=== PATIENT | male | born 1945 | race Caucasian/White ===

== ENCOUNTER 2019-09-13 10:14 | Outpatient (CLI) | payer MEDICARE, SELFPAY ==
--- NOTE | ~2019-09-13 | US_ITS ---
EXAMINATION: US scrotum doppler EXAM DATE: 09/13/2019 10:48 INDICATION: Right testicular swelling. TECHNIQUE: Multiple grayscale and Doppler images of the testicles and scrotum were obtained bilateral ly. There is no prior study for comparison. FINDINGS: Right testicle measures 3.9 x 3.5 x 3.3 cm and is morphologically normal. Low resistance Doppler kaiser w confirmed. There is a large epididymal head cyst measuring 5.7 x 5.6 x 4.8 cm. There is a moderate- sized right-sided hydrocele. Left testicle measures 3.9 x 3.2 x 2.3 cm and is morphologically normal. Low resistance Doppler flow confirmed. The epididymis is unremarkable. There is a small hydrocele. IMPRESSION: 1. Large right-sided epididymal head cyst. 2. Moderate right-sided hydrocele. Reviewed, dictated and finalized at location A. SALESMAN
== END 2019-09-13 10:15 | disposition home or self-care (01) ==
LOC: ANHIMG 10:22
PROVIDERS: PCP Internal Medicine; Visit Provider Nurse Practitioner
DX: N43.3 Hydrocele, unspecified (principal); N50.3 Cyst of epididymis
CPT/HCPCS: 76870; 93976

== ENCOUNTER 2020-10-03 08:19 | Outpatient (CLI) | payer MEDICARE, SELFPAY ==
--- NOTE | ~2020-10-03 | XR_ITS ---
EXAMINATION: XR chest 2V EXAM DATE: 10/03/2020 08:29 INDICATION: R06.02 - Shortness of breath TECHNIQUE: Frontal and lateral projections of the chest obtained and reviewed. There is no prior chuck dy for comparison. FINDINGS: The lungs are clear. There are no pleural effusions. The cardiomediastinal silhouette is within normal limits. There is no pneumothorax suspected. The bones and soft tissues are unremarkab le. IMPRESSION: Unremarkable chest x-ray exam. Reviewed, dictated and finalized at location B. INS STRINGER
== END 2020-10-03 08:20 | disposition home or self-care (01) ==
LOC: ANHIMG 08:22
PROVIDERS: PCP Internal Medicine; Visit Provider Nurse Practitioner
DX: R06.02 Shortness of breath (principal)
CPT/HCPCS: 71046

== ENCOUNTER 2020-10-24 08:55 | Outpatient (CLI) | payer MEDICARE, SELFPAY ==
--- NOTE | 2020-10-24 09:11 | EST_ITS ---
Patient Info Name: Yonis Gant Age: 75 years : 1945 Gender: Male Ht: 72 in Wt: 248 lbs BSA: 2.43 m2 Technical Quality: Fair Exam Date: 10/24/2020 10:00 AM Exam Location: [facility] Patient Status: Outpatient Admit Date: 10/24/2020 Staff Ordering Physician: Jj Collins APRN Electrical Controls Designer: Job Britton RDCS, RT Attending Provider: LEONEL MURILLO DO Referring Physician: Dennis SULLIVAN; Exam Type: CA stress echo Study Info Indications R06.02 - Shortness of breath Treadmill exercise stress echocardiogram is performed. Summary 1. 1. Negative Joby exercise stress test for ischemic ST changes by ECG criteria. 2. 2. Good functional capacity, achieving 7 METs of workload. 3. 3. Appropriate HR response to exercise. 4. 4. Appropriate HR recovery at 1 minute post exercise. 5. 5. Negative stress echocardiogram for ischemia by wall motion analysis. 6. 6. Patient informed of the above results. Stress Echo Findings Left Ventricle Appropriate increase in LV endocardial thickening with systole. Appropriate augmentation of contractility with systole. No wall motion abnormality. Left Ventricle Normal LV systolic function, no wall motion abnormality. Protocol: Joby Stress ECG Details Stage: REST Duration (min): 1 min : 6 sec Speed (mph): 0.0 Grade (%): 0 HR (bpm): 66 SBP (mmHg): 116 DBP (mmHg): 77 METS: --- Stage: REST Duration (min): 10 min : 57 sec Speed (mph): 0.0 Grade (%): 0 HR (bpm): 74 SBP (mmHg): 116 DBP (mmHg): 77 METS: --- Stage: STAGE 1 Duration (min): 1 min : 0 sec Speed (mph): 1.7 Grade (%): 10 HR (bpm): 97 SBP (mmHg): 116 DBP (mmHg): 77 METS: --- Stage: STAGE 1 Duration (min): 2 min : 0 sec Speed (mph): 1.7 Grade (%): 10 HR (bpm): 111 SBP (mmHg): 116 DBP (mmHg): 77 METS: --- Stage: STAGE 1 Duration (min): 3 min : 0 sec Speed (mph): 1.7 Grade (%): 10 HR (bpm): 114 SBP (mmHg): 161 DBP (mmHg): 76 METS: --- Stage: STAGE 2 Duration (min): 1 min : 0 sec Speed (mph): 2.5 Grade (%): 12 HR (bpm): 122 SBP (mmHg): 161 DBP (mmHg): 76 METS: --- Stage: STAGE 2 Duration (min): 2 min : 0 sec Speed (mph): 2.5 Grade (%): 12 HR (bpm): 132 SBP (mmHg): 161 DBP (mmHg): 76 METS: --- Stage: STAGE 2 Duration (min): 3 min : 0 sec Speed (mph): 2.5 Grade (%): 12 HR (bpm): 133 SBP (mmHg): 161 DBP (mmHg): 76 METS: --- Stage: STAGE 3 Duration (min): 0 min : 1 sec Speed (mph): 0.0 Grade (%): 0 HR (bpm): 133 SBP (mmHg): 161 DBP (mmHg): 76 METS: --- Stage: RECOVERY Duration (min): 0 min : 58 sec Speed (mph): 0.0 Grade (%): 0 HR (bpm): 102 SBP (mmHg): 157 DBP (mmHg): 51 METS: --- Stage: RECOVERY Duration (min): 1 min : 58 sec Speed (mph): 0.0 Grade (%): 0 HR (bpm): 95 SBP (mmHg): 157 DBP (mmHg): 51
== END 2020-10-24 08:56 | disposition home or self-care (01) ==
PROVIDERS: PCP Internal Medicine; Visit Provider Nurse Practitioner
DX: R01.1 Cardiac murmur, unspecified (principal); R06.02 Shortness of breath
CPT/HCPCS: 93351

== ENCOUNTER 2023-11-18 06:34 | Outpatient (CLI) | payer MEDICARE, SELFPAY ==
--- NOTE | ~2023-11-18 | MR_ITS ---
MRI of the left shoulder Technique: Axial proton-density fat-sat images, coronal proton density fat-sat and T2 fat-sat images, and sagittal T1-weighted and T2 fat-sat images were acquired. Clinical History: Pain Findings: There is moderate AC joint degenerative change, superior bony productive change of the clav icle and acromion. Coracoclavicular, coracoacromial, and coracohumeral ligaments are intact. There are complete, full-thickness tears involving the entire supraspinatus and infraspinatus tendons , with fluid-filled gap measuring approximately 4.3 x 4.3 cm in extent. Tendons are retracted approxi mately to the level of the glenohumeral joint, and are hyperintense and somewhat frayed. Subscapulari s tendon is intact, with moderate to severe tendinosis. Tendon of the long head of the biceps is inta ct. No definite labral tear identified. Inferior glenohumeral ligament is thickened and hyperintense. There is small amount of glenohumeral j oint effusion, with fluid passing through the rotator cuff defect into the subacromial/subdeltoid bur sa. There is marked fluid distention of the subcoracoid bursa. No definite muscle atrophy or edema. M inimal chondromalacia the humeral head noted. Impression: Complete, full-thickness tears involving the entire supraspinatus and infraspinatus tendons, as detfatemeh led above. Subscapularis tendinosis. Thickening and increased signal inferior glenohumeral ligament could reflect adhesive capsulitis. Marked asymmetric fluid distention of the subcoracoid bursa is compatible with subcoracoid bursitis. Reviewed, dictated and finalized at location . Impression: Complete, full-thickness tears involving the entire supraspinatus and infraspin atus tendons, as detailed above. Subscapularis tendinosis. Thickening and increased signal inferior glenohumeral ligament could reflect ad hesive capsulitis. Marked asymmetric fluid distention of the subcoracoid bursa is compatible with subcoracoid bursitis.
== END 2023-11-18 06:35 | disposition home or self-care (01) ==
PROVIDERS: PCP Nurse Practitioner; Visit Provider Orthopaedic Surgery
DX: M75.122 Complete rotator cuff tear or rupture of left shoulder, not specified as traumatic (principal)
CPT/HCPCS: 73221

== ENCOUNTER 2024-10-01 12:13 | Inpatient (IN) | payer MEDICARE, SELFPAY ==
--- NOTE | ~2024-10-01 | XR_ITS ---
EXAMINATION: XR chest 2V DATE: 10/01/2024 13:02 INDICATION: Chest pain. TECHNIQUE: Frontal and lateral views of the chest were obtained. COMPARISON: Chest 2 views 10/03/2020 FINDINGS: There are airspace opacities in left lower lung zone. No pleural effusion or pneumothorax. The heart size is normal. IMPRESSION: 1. Airspace opacities in left lower lung zone, consistent with atelectasis versus pneumonia. Reviewed, dictated and finalized at location A. TIONSHIP CONSULTANT IMPRESSION: 1. Airspace opacities in left lower lung zone, consistent with atelectasis vers us pneumonia.
--- NOTE | 2024-10-01 12:13 | ECG_ITS ---
Test Date: 2024-10-01 12:17:21 Measurements Intervals Bryan Rate: 106 P: 62 NE: 180 QRS: -5 QRSD: 106 T: 80 QT: 351 QTc: 466 Interpretive Statements SINUS TACHYCARDIA WITH FREQUENT VENTRICULAR PREMATURE COMPLEXES IN A BIGEMINAL PATTERN INCOMPLETE RIGHT BUNDLE BRANCH BLOCK BASELINE ARTIFACT- I, II, III, AVR, AVL, V1 ABNORMAL ECG No previous ECG available for comparison Electronically Signed On 10-01-2024 16:51:55 MEDICAL DELIVERY DRIVER by Art Herman D.O.
[2024-10-01 12:29] VITALS: BP 135/91; PULSE 108; RESP 19; TEMP 36.6; O2SAT 100
[2024-10-01 12:38] LABS: Basophils Absolute Auto 0.1 K/mm3 (0.0-0.1); Basophils Percent Auto 1.3 % (0.2-1.2); Eosinophils Absolute Auto 0.3 K/mm3 (0-0.3); Hematocrit 47.2 % (42.0-52.0); Immature Granulocyte Absolute 0.02 K/mm3 (0.00-0.031); Immature Granulocyte Percent A 0.3 % (0-0.5); Lymphocytes Absolute Auto 1.84 K/mm3 (0.9-3.2); Lymphocytes Percent Auto 26.4 % (18.3-44.2); Mean Corpuscular HGB Conc 33.9 g/dl (32-36); Mean Corpuscular Hemoglobin 30.3 pg (26-34); Mean Corpuscular Volume 89.4 fl (80-100); Mean Platelet Volume 10.5 fl (7.4-10.4); Monocytes Absolute Auto 0.5 K/mm3 (0.1-0.6); Monocytes Percent Auto 7.4 % (2.6-8.5); Neutrophils Absolute Auto 4.2 K/mm3 (1.3-6.7); Neutrophils Percent Auto 60.6 % (45.5-73.1); Platelet Count Result 212 k/mm3 (150-375); Red Blood Count 5.28 M/mm3 (4.6-6.20)
[2024-10-01 12:43] LABS: Alanine Aminotransferase 22 U/L (6-50); Albumin Level 4.8 g/dL (3.5-5.1); Alkaline Phosphatase 109 U/L (38-126); Anion Gap 13 mmol/L (4-12); Aspartate Amino Transferase 25 U/L (17-59); Blood Urea Nitrogen 20 mg/dL (9-20); Carbon Dioxide 25 mmol/L (22-30); Chloride 100 mmol/L (98-107); Estimated CRCL calculation 53 ml/min; Estimated Glomerular Filt Rate 53; Glucose 102 mg/dL (65-110); Lipase 203 U/L (23-300); Potassium 4.3 mmol/L (3.4-5.0); Sodium 138 mmol/L (137-145)
[2024-10-01 12:50] LABS: INR 0.9; Prothrombin Time 12.7 Seconds (11.1-14.7)
[2024-10-01 12:52] LABS: Partial Thromboplastin Time 26.5 Seconds (22.3-36.8)
[2024-10-01 12:54] LABS: Troponin I < 0.012 ng/mL (0.000-0.034)
--- NOTE | 2024-10-01 14:38 | ED.GENADULT ---
HPI - General Adult General Chief complaint: Chest Pain Stated complaint: CP Time Seen by Provider: 10/01/24 14:27 History of Present Illness HPI narrative: Patient 79-year-old gentleman who presents emergency department chief complaint of chest pain. Patient reports that over the last 2 weeks he has been having episodes of chest pain particularly whenever he is doing physical activity patient states he was outside shoveling snow and started having discomfort in his chest and got short of breath patient did report that he got a little sweaty when this happened reports the symptoms did resolve patient states that since then he has had episodes where he is working in his garage either grinding or moving tractors around or he starts having the pain once he stops doing the activity the discomfort goes away. The patient reports that he a stress test about 2 years ago reports currently he is pain-free Related Data Home Medications ?Medication ?Instructions ?Recorded ?Confirmed ?Last Taken ?Type aspirin 81 mg tablet,delayed 81 mg PO DAILY 09/05/19 07/14/24 Unknown History release (Aspir-) Allergies Allergy/AdvReac Type Severity Reaction Status Date / Time No Known Allergies Allergy Verified 07/14/24 07:23 Review of Systems Review of Systems: A 10 system review of systems was completed on the patient and is negative except for what is stated in the HPI. Nursing and ancillary documentation was reviewed. [facility] Past Medical History Medical History BMI 35.0-35.9,adult History of testicular lump High cholesterol Hypertension Benign prostatic hyperplasia (BPH) with urinary urgency Surgical History Surgical History History of testicular mass excision Family History Family History Father Alcoholic cirrhosis Mother Brain cancer Sibling addiction Acute myocardial infarction Brain cancer Exposure to Agent [place] Social History Social History Smoking status: Never smoker Second hand tobacco smoke exposure: No Alcohol intake: current Alcohol use details: 4 beer every month Substance use: never Substance use type: does not use Do You Feel Safe in your Home?: Yes Lack of Transportation: No Lack of Food: Never True Current Housing: I Have Housing Concerned About Future Housing: No Difficulty Paying Gas/Electric Bills: No Difficulty Paying for Meds: No Currently Unemployed: No Education: High School Diploma/GED Difficulty w/ Childcare or Family Care: No Living arrangements: with family Occupation/Education: retired Additional occupation/education comments: [employer] Gender identity (if verbalized by the patient): Male Exam Narrative: GENERAL: Well-appearing, well-nourished, and in no acute distress. HEAD: Normocephalic, atraumatic. EYES: PERRLA and EOMI. ENT: Nares clear, no rhinorrhea or epistaxis. Mucous membranes moist. NECK: Supple. CHEST: Clear to auscultation. No respiratory distress. HEART: Regular rate and rhythm. No murmur heard. Normal peripheral pulses. ABDOMEN: Soft, nontender, nondistended, normal active bowel sounds. EXTREMITIES: Normal range of motion. No edema. SKIN: Warm, dry, no rash. NEURO: No focal deficits. Alert and oriented x3. PSYCH: Normal mood and affect. Course Vital Signs Vital signs: Vital Signs Temperature 36.6 C 10/01/24 12:29 Pulse Rate 108 H 10/01/24 12:29 Respiratory Rate 10/01/24 12:29 Blood Pressure 135/91 H 10/01/24 12:29 Pulse Oximetry 100 10/01/24 12:29 Oxygen Delivery Room Air 10/01/24 12:29 Temperature 36.6 C 10/01/24 12:29 Pulse Rate 108 H 10/01/24 12:29 Respiratory Rate 10/01/24 12:29 Blood Pressure 135/91 H 10/01/24 12:29 Pulse Oximetry 100 10/01/24 12:29 Oxygen Delivery Room Air 10/01/24 14:32 Medical Decision Making [facility] Narrative Medical decision making narrative: Differential diagnosis includes exertional angina, unstable angina, ACS EKG showed no acute ischemic changes Initial troponin was negative Vital Signs Vital Signs: Vital Signs Temperature 36.6 C 10/01/24 12:29 Pulse Rate 108 H 10/01/24 12:29 Respiratory Rate 10/01/24 12:29 Blood Pressure 135/91 H 10/01/24 12:29 Pulse Oximetry 100 10/01/24 12:29 Oxygen Delivery Room Air 10/01/24 12:29 Temperature 36.6 C 10/01/24 12:29 Pulse Rate 108 H 10/01/24 12:29 Respiratory Rate 19 10/01/24 12:29 Blood Pressure 135/91 H 10/01/24 12:29 Pulse Oximetry 100 10/01/24 12:29 Oxygen Delivery Room Air 10/01/24 14:32 Lab Data 10/01/24 12:26 10/01/24 12:26 Labs: Lab Results 10/01/24 Range/Units 12:26 WBC 7.0 (4.5-10.0) K/mm3 RBC 5.28 (4.6-6.20) M/mm3 Hgb 16.0 (14.0-18.0) g/dL Hct 47.2 (42.0-52.0) % MCV 89.4 (80-100) fl MCH 30.3 (26-34) pg MCHC 33.9 (32-36) g/dl RDW 13.0 (11.5-14.5) % Plt Count 212 (150-375) k/mm3 MPV 10.5 H (7.4-10.4) fl Immature Gran % (Auto) 0.3 (0-0.5) % Neut % (Auto) 60.6 (45.5-73.1) % Lymph % (Auto) 26.4 (18.3-44.2) % Estill % (Auto) 7.4 (2.6-8.5) % Eos % (Auto) 4.0 (0-4.4) % Baso % (Auto) 1.3 H (0.2-1.2) % Lymph # (Auto) 1.84 (0.9-3.2) K/mm3 Estill # (Auto) 0.5 (0.1-0.6) K/mm3 Eos # (Auto) 0.3 (0-0.3) K/mm3 Baso # (Auto) 0.1 (0.0-0.1) K/mm3 Abs Immat Gran (auto) 0.02 (0.00-0.031) K/mm3 Absolute Neuts (auto) 4.2 (1.3-6.7) K/mm3 Absolute Nucleated RBC 0.000 (0.0-0.012) K/mm3 Nucleated RBC % 0.0 (0.0-0.2) % PT 12.7 (11.1-14.7) Seconds INR 0.9 APTT 26.5 (22.3-36.8) Seconds Sodium 138 (137-145) mmol/L Potassium 4.3 (3.4-5.0) mmol/L Chloride 100 (98-107) mmol/L Carbon Dioxide 25 (22-30) mmol/L Anion Gap 13 H (4-12) mmol/L BUN 20 (9-20) mg/dL Creatinine 1.31 H (0.7-1.3) mg/dL Estim Creat Clear Calc 53 ml/min Estimated GFR 53 L (59 - ) Glucose 102 (65-110) mg/dL Calcium 10.0 (8.4-10.2) mg/dL Total Bilirubin 1.0 (0.2-1.3) mg/dL AST 25 (17-59) U/L ALT 22 (6-50) U/L Alkaline Phosphatase 109 (38-126) U/L Troponin I < 0.012 (0.000-0.034) ng/mL Total Protein 8.0 (6.3-8.2) g/dL Albumin 4.8 (3.5-5.1) g/dL Lipase 203 (23-300) U/L Discharge Plan Discharge Clinical Impression: Chest pain Patient Disposition: Still a Patient Condition: Stable Patient Language: Tajik Prescriptions: No Action aspirin [Aspir-81] 81 mg tablet,delayed release (DR/EC) 81 mg PO DAILY levothyroxine 112 mcg tablet 112 mcg PO DAILY Qty: 90 3RF lisinopril-hydrochlorothiazide 20-12.5 mg tablet 1 tablet PO DAILY Qty: 90 3RF atorvastatin 20 mg tablet 20 mg PO DAILY Qty: 90 3RF Follow-up/Referrals: Jj Collins APRN [Primary Care Provider] - Time of Disposition: 14:40 Quality HEART score for chest pain patients History: moderately suspicious ECG: normal Age: > or = to 65 years Risk factors: 1 or 2 risk factors Troponin: < or = to 1x normal limit Heart score: 4
[2024-10-01 14:55] LABS: NT Pro B Type Natriuretic Pept < 20 pg/mL (19.9-100)
--- NOTE | 2024-10-01 15:02 | ECG_ITS ---
Test Date: 2024-10-01 15:22:52 Measurements Intervals Dwight Rate: 83 P: 60 SD: 173 QRS: 10 QRSD: 106 T: 69 QT: 353 QTc: 415 Interpretive Statements SINUS RHYTHM INCOMPLETE RIGHT BUNDLE BRANCH BLOCK BASELINE ARTIFACT- I, III, AVR, AVL, AVF BORDERLINE ECG Compared to ECG 10/01/2024 12:17:21 HEART RATE HAS DECREASED VENTRICULAR BIGEMINY NO LONGER PRESENT Electronically Signed On 10-01-2024 16:35:24 CRUCIBLE FURNACE TENDER by Art Herman D.O.
[2024-10-01 15:13] VITALS: BP 141/87; PULSE 90; RESP 16; O2SAT 96
--- NOTE | 2024-10-01 15:15 | P.HP_ITS ---
H&P: HPI History of Present Illness Date/Time: 10/01/24 15:15 Chief Complaint: Chest pain. Narrative: This is a very pleasant 79-year-old male with history of hypertension, hyperlipidemia, chronic kidney disease stage 3, benign prostatic hyperplasia, hypothyroidism, and kidney stones who presented to the emergency department via private vehicle for evaluation of chest pain. He gives a 3 history of exertional chest pain, describing a nonradiating pressure-like discomfort in the substernal region with activity. For example, the chest discomfort occurred while he was shoveling and working out in his garage. The pain resolves within a short period of time after he stops to rest. He denies associated lightheadedness, dizziness, sweats, nausea, and vomiting. He had a stress test done several years ago which was unremarkable and he has no known history of coronary disease. At the time my evaluation he is without discomfort and has no complaints. He denies recent cold and flu symptoms, pleuritic pain, orthopnea, lower extremity edema, calf pain, bloating, belching, and abdominal pain. In the ED: Vital signs were stable on arrival. CMP and CBC were pretty unremarkable on arrival and his creatinine is stable compared to previous labs. Initial troponin was less than 0.012. EKG showed sinus tachycardia with a rate of 106 and frequent PVCs in a bigeminal pattern and incomplete right bundle- branch block. He was given aspirin 324 mg and is being admitted in this setting for close monitoring and Cardiology consultation. Review of Systems Review of Systems: 12 systems were reviewed and are negativ e except for as per HPI. PENDING SALE TO [facility] Past Medical History Medical History (Updated 10/02/24 @ 14:29 by Summer Mccabe PA-C) Benign prostatic hyperplasia Hyperlipidemia Chronic kidney disease, stage 3 Hypertension Surgical History Surgical History History of testicular mass excision Family History Family History Father Alcoholic cirrhosis Mother Brain cancer Sibling addiction Acute myocardial infarction Brain cancer Exposure to Agent [place] Social History Social History (Updated 10/02/24 @ 14:29 by Summer Mccabe PA-C) Social History: Surrogate medical decision maker: Noemy Gant, spouse. Code status: Full code. Smoking status: Never smoker Second hand tobacco smoke exposure: No Alcohol intake: current Alcohol use details: 4 beer every month Substance use: never Substance use type: does not use Do You Feel Safe in your Home?: Yes Lack of Transportation: No Lack of Food: Never True Current Housing: I Have Housing Concerned About Future Housing: No Difficulty Paying Gas/Electric Bills: No Difficulty Paying for Meds: No Currently Unemployed: No Education: High School Diploma/GED Difficulty w/ Childcare or Family Care: No Living arrangements: with family Occupation/Education: retired Additional occupation/education comments: [employer] Spiritual care concerns: No Meds Home Medications and Allergies Home Medications ?Medication ?Instructions ?Recorded ?Confirmed ?Type aspirin 81 mg tablet,delayed 81 mg PO DAILY 09/05/19 10/01/24 History release (Aspir-) atorvastatin 20 mg tablet 20 mg PO DAILY #90 tabs 04/20/24 10/01/24 Rx levothyroxine 112 mcg tablet 112 mcg PO DAILY #90 tabs 07/14/24 10/01/24 Rx lisinopril 20 1 tablet PO DAILY #90 tabs 07/14/24 10/01/24 Rx mg-hydrochlorothiazide 12.5 mg tablet Allergies Allergy/AdvReac Type Severity Reaction Status Date / Time No Known Allergies Allergy Verified 07/14/24 07:23 Vital Signs Vital Signs - 24 hr 10/01/24 12:29 10/01/24 14:32 10/01/24 15:13 Temperature 97.9 F Pulse Rate 108 H 90 Respiratory Rate 19 16 Blood Pressure 135/91 H 141/87 H Pulse Oximetry 100 96 Oxygen Delivery Room Air Room Air Exam Narrative: General: Well-developed male sitting up in bed in no acute distress. Weight: 118.3 kg. BMI: 35.4. HEENT: PERRL, EOMI. Sclera anicteric. Oral mucosa moist. Oropharynx clear. Neck: Supple. Respiratory: Lungs are clear to auscultation bilaterally. Cardiovascular: Regular rate and rhythm with S1-S2. Systolic murmurs at the right upper sternal border and apex. Chest: No tenderness to palpation over the chest wall. Gastrointestinal: Abdomen is soft, obese, nontender, and nondistended with positive bowel sounds. Skin: Warm and dry. No rash or lesions on limited exam. Extremities: No cyanosis, clubbing, or edema. Radial and pedal pulses intact. No palpable knots or cords. Negative Mauro sign bilaterally. Neurological: Alert. Cranial nerves 2-12 are grossly intact. No gross focal deficits to casual conversation. Psychiatric: Pleasant and cooperative with normal mood and affect. Judgment and insight intact. H&P: Results Labs Labs: Short CBC 10/01/24 Range/Units 12:26 WBC 7.0 (4.5-10.0) K/mm3 Hgb 16.0 (14.0-18.0) g/dL Hct 47.2 (42.0-52.0) % Plt Count 212 (150-375) k/mm3 BMP 10/01/24 12:26 Sodium 138 Potassium 4.3 Chloride 100 Carbon Dioxide 25 BUN 20 Creatinine 1.31 H Glucose 102 Calcium 10.0 Cardiac Enzymes 10/01/24 Range/Units 12:26 Troponin I < 0.012 (0.000-0.034) ng/mL Liver Function 10/01/24 Range/Units 12:26 Total Bilirubin 1.0 (0.2-1.3) mg/dL AST 25 (17-59) U/L ALT 22 (6-50) U/L Alkaline Phosphatase 109 (38-126) U/L Albumin 4.8 (3.5-5.1) g/dL Imaging Chest X-Ray 10/01/24 13:04 IMPRESSION: 1. Airspace opacities in left lower lung zone, consistent with atelectasis versus pneumonia. Assessment and Plan Assessment and plan (1) Exertional chest pain: Code(s): R07.9 - Chest pain, unspecified Status: Acute (2) Hypertension: Qualifiers: Hypertension type: primary hypertension Qualified Code(s): I10 - Essential (primary) hypertension Code(s): I10 - Essential (primary) hypertension Status: Acute (3) Hyperlipidemia: Qualifiers: Hyperlipidemia type: other hyperlipidemia Qualified Code(s): E78.49 - Other hyperlipidemia Code(s): E78.5 - Hyperlipidemia, unspecified Status: Acute (4) Hypothyroidism: Qualifiers: Hypothyroidism type: acquired Qualified Code(s): E03.9 - Hypothyroidism, unspecified Code(s): E03.9 - Hypothyroidism, unspecified Status: Acute (5) Chronic kidney disease, stage 3: Code(s): N18.30 - Chronic kidney disease, stage 3 unspecified Status: Acute Plan The patient presented to the emergency department for evaluation of exertional chest pain over the last couple of weeks as detailed in HPI. Labs, imaging, EKG, and all reports were personally reviewed. EKG did not show any acute or concerning ST segment changes and his initial troponin was negative. He will be admitted to the IMU for close monitoring and he will be NPO after midnight for probable cardiac catheterization due to exertional angina. Cardiology was consulted by the ED and their input and recommendations are appreciated. Blood pressures were reviewed and they have been stable. Kidney function is stable on review of previous labs. Continue levothyroxine and check TSH. The rest of his home medications will be reviewed and resumed as appropriate. Findings and treatment plan were discussed with the patient. Questions were solicited and answered to satisfaction. The patient's medical management will be taken over by the hospitalist team in a.m. Quality VTE Prophylaxis VTE prophylaxis: pharmacologic ordered The patient has been admitted under observation status. Hospitalist MIPS Advance Care Plan I have confirmed that the patient's Advanced Care Plan is present, code status is documented, or surrogate decision maker is listed in patient medical record.: Yes Medication Reconciliation I have utilized all available resources to obtain, update and review the patients current medications (includes all prescriptions, OTC, herbals, cannabis, and nutritional supplements).: Yes
[2024-10-01 15:42] LABS: Troponin I 0.029 ng/mL (0.000-0.034)
[2024-10-01 15:53] LABS: Influenza A QL RT-PCR Negative (Negative); Influenza B QL RT-PCR Negative (Negative); RSV RNA, RT-PCR Negative (Negative); SARS-CoV-2 RNA PCR Negative (Negative)
[2024-10-01 17:38] VITALS: BP 151/79; PULSE 87; RESP 18; TEMP 36.5; O2SAT 96; BMI 35.4
[2024-10-01 18:00] VITALS: PULSE 85
--- NOTE | 2024-10-01 18:08 | PC.NURSE ---
This patient, Yonis Gant Jr., was admitted to IMU Room 214-01. Patient/family oriented to hospital policies and general routines including ID bracelet, bed and alarms, visiting hours, pain management, procedures, bathroom and other care routines, personal items, smoking policy, room service/diet, and visiting hours. Information on how to activate the Rapid Response Team has been discussed. Patient/Family are encouraged to report perceived risks to care and to ask questions if they do not understand what they are told or what they should do. Admissoion assessment completed at bedside with pt and documented in the chart. Pt voiced no complaints or concerns at this time. Pt left sitting on side of bed eating dinner with call light in reach and informed to call for help. pt thankful for help and verbalized understanding. Jerardo Rollins RN
[2024-10-01 19:19] LABS: Troponin I 0.073 ng/mL (0.000-0.034)
[2024-10-01 20:00] VITALS: BP 145/72; PULSE 76; PULSE 79; RESP 18; TEMP 36.4; O2SAT 96
[2024-10-01 22:00] VITALS: PULSE 79
[2024-10-02] VITALS (27 sets, daily range): BP systolic 117–151; BP diastolic 67–92; PULSE 61–78; RESP 13–22; TEMP 36.3–36.6; O2SAT 93–99
[2024-10-02 04:53] LABS: Hematocrit 45.1 % (42.0-52.0); Hemoglobin 15.1 g/dL (14.0-18.0); Mean Corpuscular HGB Conc 33.5 g/dl (32-36); Mean Corpuscular Volume 89.7 fl (80-100); Mean Platelet Volume 10.4 fl (7.4-10.4); Platelet Count Result 185 k/mm3 (150-375); Red Blood Count 5.03 M/mm3 (4.6-6.20); Red Cell Distribution Width 13.1 % (11.5-14.5); White Blood Count 6.2 K/mm3 (4.5-10.0)
[2024-10-02 05:05] LABS: Cholesterol 151 mg/dL (0-200); HDL Direct 52 mg/dL; Triglycerides 85 mg/dL (<150)
[2024-10-02 05:07] LABS: Anion Gap 7 mmol/L (4-12); Blood Urea Nitrogen 19 mg/dL (9-20); Calcium 9.5 mg/dL (8.4-10.2); Carbon Dioxide 29 mmol/L (22-30); Chloride 102 mmol/L (98-107); Estimated CRCL calculation 55 ml/min; Estimated Glomerular Filt Rate 54; Glucose 94 mg/dL (65-110); Magnesium 1.9 mg/dL (1.6-2.3); Potassium 4.2 mmol/L (3.4-5.0); Sodium 138 mmol/L (137-145)
[2024-10-02 05:16] LABS: LDL Cholesterol Direct 68 mg/dL
[2024-10-02 06:43] LABS: Free T4 Free Thyroxine Reflex 0.96 ng/dL (0.78-2.19)
[2024-10-02] MEDS: ASPIRIN 81 MG ENTERIC TABLET PO (08:37)
[2024-10-02] MEDS: ATORVASTATIN 20 MG TABLET PO (08:37)
[2024-10-02] MEDS: LEVOTHYROXINE SODIUM 112 MCG TABLET PO (08:38)
[2024-10-02] MEDS: lisinopriL 20 MG TABLET PO (08:38)
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
--- NOTE | 2024-10-02 09:29 | P.PNIM_ITS ---
Progress Note: A&P Assessment and Plan (1) Exertional chest pain: Code(s): R07.9 - Chest pain, unspecified Status: Acute (2) Hypertension: Qualifiers: Hypertension type: primary hypertension Qualified Code(s): I10 - Essential (primary) hypertension Code(s): I10 - Essential (primary) hypertension Status: Acute (3) Hyperlipidemia: Qualifiers: Hyperlipidemia type: other hyperlipidemia Qualified Code(s): E78.49 - Other hyperlipidemia Code(s): E78.5 - Hyperlipidemia, unspecified Status: Acute (4) Hypothyroidism: Qualifiers: Hypothyroidism type: acquired Qualified Code(s): E03.9 - Hypothyroidism, unspecified Code(s): E03.9 - Hypothyroidism, unspecified Status: Acute (5) Chronic kidney disease, stage 3: Code(s): N18.30 - Chronic kidney disease, stage 3 unspecified Status: Acute Plan This is a very pleasant 79-year-old male with history of hypertension, hyperlipidemia, chronic kidney disease stage 3, benign prostatic hyperplasia, hypothyroidism, and kidney stones who presented to the emergency department via private vehicle for evaluation of chest pain. He gives a 3 history of exertional chest pain, describing a nonradiating pressure-like discomfort in the substernal region with activity. For example, the chest discomfort occurred while he was shoveling and working out in his garage. The pain resolves within a short period of time after he stops to rest. He denies associated lightheadedness, dizziness, sweats, nausea, and vomiting. He had a stress test done several years ago which was unremarkable and he has no known history of coronary disease. At the time my evaluation he is without discomfort and has no complaints. He denies recent cold and flu symptoms, pleuritic pain, orthopnea, lower extremity edema, calf pain, bloating, belching, and abdominal pain. In the ED: Vital signs were stable on arrival. CMP and CBC were pretty unremarkable on arrival and his creatinine is stable compared to previous labs. Chest x-ray with airspace opacities in the left lung zone consistent with atelectasis versus pneumonia. Influenza RSV COVID swab was negative. Initial troponin was less than 0.012. EKG showed sinus tachycardia with a rate of 106 and frequent PVCs in a bigeminal pattern and incomplete right bundle-branch block. EKG with no acute ST-T changes. He was given aspirin 324 mg and is being admitted in this setting for close monitoring and Cardiology consultation. Exertional chest pain initial troponin negative however subsequent increase to 0.073. Suggestive of non ST elevation GA. received aspirin 324 mg x 1 followed by aspirin 81 mg daily. Already on atorvastatin 20 mg daily. LDL is 68. Increase atorvastatin to 80 mg daily. Heparin drip has been started this a.m. planned cardiac catheterization later today Systolic murmur in aortic area get echo Hypertension Hyperlipidemia Hypothyroidism Chronic kidney disease stage 3 Code status full code DVT prophylaxis heparin GTT Subjective Date/time seen: 10/02/24 09:29 Interval history: No new complaints no chest pain. No shortness of breath. Plan for catheterization later today per Review of Systems Review of Systems: All systems reviewed & are unremarkable except as noted in HPI and below Exam Narrative: General: Well-developed male sitting up in bed in no acute distress. HEENT: PERRL, EOMI. Sclera anicteric. Oral mucosa moist. Oropharynx clear. Neck: Supple. Respiratory: Lungs are clear to auscultation bilaterally. Cardiovascular: Regular rate and rhythm with S1-S2. Aortic area with systolic murmur Chest: No tenderness to palpation over the chest wall. Gastrointestinal: Abdomen is soft, obese, nontender, and nondistended with positive bowel sounds. Skin: Warm and dry. No rash or lesions on limited exam. Extremities: No cyanosis, clubbing, or edema. Radial and pedal pulses intact. No palpable knots or cords. Neurological: Alert. Cranial nerves 2-12 are grossly intact. No gross focal deficits to casual conversation. Psychiatric: Pleasant and cooperative with normal mood and affect. Judgment and insight intact. Objective Data Vital Signs Vital Signs: Vital Signs - 24 hr 10/01/24 12:29 10/01/24 14:32 10/01/24 15:13 Temperature 97.9 F Pulse Rate 108 H 90 Respiratory Rate 19 16 Blood Pressure 135/91 H 141/87 H Pulse Oximetry 100 96 Oxygen Delivery Room Air Room Air 10/01/24 17:38 10/01/24 18:00 10/01/24 18:15 Temperature 97.7 F Pulse Rate 87 85 Respiratory Rate 18 Blood Pressure 151/79 H Pulse Oximetry 96 Oxygen Delivery Room Air 10/01/24 20:00 10/01/24 20:00 10/01/24 20:00 Temperature 97.5 F L Pulse Rate 76 79 Respiratory Rate 18 Blood Pressure 145/72 H Pulse Oximetry 96 Oxygen Delivery Room Air 10/01/24 22:00 10/02/24 00:00 10/02/24 00:00 Temperature 97.4 F L Pulse Rate 79 78 Respiratory Rate 20 Blood Pressure 139/84 Pulse Oximetry 97 Oxygen Delivery Room Air 10/02/24 00:00 10/02/24 03:41 10/02/24 04:00 Temperature Pulse Rate 75 71 Respiratory Rate Blood Pressure Pulse Oximetry Oxygen Delivery Room Air 10/02/24 04:00 10/02/24 07:36 Temperature 97.6 F 97.6 F Pulse Rate 68 68 Respiratory Rate 18 18 Blood Pressure 151/92 H 128/69 Pulse Oximetry 95 99 Oxygen Delivery Intake/Output Intake/Output: Intake & Output 09/29/24 09/30/24 10/01/24 10/02/24 23:59 23:59 23:59 23:59 Intake Total 240 350 Output Total 100 950 Balance 140 -600 Meds/Results Medications: Active Medications Generic Name Dose Route Start Last Admin Trade Name Freq PRN Reason Stop Dose Admin Acetaminophen 650 mg 10/01/24 15:12 Acetaminophen 325 Mg Tablet PO Q4H PRN Mild Pain (1-3) or Fever Aspirin 81 mg 10/02/24 08:00 10/02/24 08:36 Aspirin 81 Mg Chewable Tablet PO Not Given DAILY@0800 [facility] Aspirin 81 mg 10/02/24 09:00 10/02/24 08:37 Aspirin 81 Mg Enteric Tablet PO 81 mg DAILY [facility] Administration Atorvastatin Calcium 20 mg 10/02/24 09:00 10/02/24 08:37 Atorvastatin 20 Mg Tablet PO 20 mg DAILY [facility] Administration Enoxaparin Sodium 40 mg 10/02/24 09:00 Enoxaparin 40 Mg/0.4 Ml Syringe SUB-Q DAILY [facility] Heparin Sodium (Porcine) 4,000 units 10/02/24 09:27 Heparin Sodium 5,000 Units/Ml Vial IV PUSH 10/02/24 09:28 ONCE ONE Heparin Sodium (Porcine) 0 units 10/02/24 09:27 Heparin Sodium 5,000 Units/Ml Vial IV PUSH PRN PRN aPTT less than 55 seconds Heparin Sodium (Porcine) 0 units 10/02/24 09:27 Heparin Sodium 5,000 Units/Ml Vial IV PUSH PRN PRN aPTT 55 - 70 seconds Hydrochlorothiazide 12.5 mg 10/02/24 09:00 Hydrochlorothiazide 12.5 Mg Capsule PO DAILY [facility] Heparin Sodium/Dextrose 25,000 units in 250 mls @ 13.908 mls/hr 10/02/24 09:30 Heparin Sodium/D5w 100 Units/Ml IV CONT .[id number] [facility] Protocol 12 UNITS/KG/HR Levothyroxine Sodium 112 mcg 10/02/24 09:00 10/02/24 08:38 Levothyroxine Sodium 112 Mcg Tablet PO 112 mcg DAILY@0630 [facility] Administration Lisinopril 20 mg 10/02/24 09:00 10/02/24 08:38 Lisinopril 20 Mg Tablet PO 20 mg DAILY [facility] Administration Morphine Sulfate 2 mg 10/01/24 20:37 Morphine Sulfate (*Crx) 2 Mg/Ml Inj IV PUSH Q4H PRN Pain Rated 7-10 Perflutren Lipid Microsphere 0 ml 10/01/24 20:37 Perflutren Lipid Microspheres 1.5 Ml Vial Diluted To 10 Ml Total Volume IV PUSH 10/04/24 20:37 ONCE PRN adequate visualization Protocol Radiology Results: ITS Impressions Chest X-Ray 10/01/24 13:04 IMPRESSION: 1. Airspace opacities in left lower lung zone, consistent with atelectasis versus pneumonia. Labs Labs: Laboratory Results - last 24 hr 10/01/24 10/01/24 10/01/24 12:26 15:11 15:12 WBC 7.0 RBC 5.28 Hgb 16.0 Hct 47.2 MCV 89.4 MCH 30.3 MCHC 33.9 RDW 13.0 Plt Count 212 MPV 10.5 H Immature Gran % (Auto) 0.3 Neut % (Auto) 60.6 Lymph % (Auto) 26.4 [place] % (Auto) 7.4 Eos % (Auto) 4.0 Baso % (Auto) 1.3 H Lymph # (Auto) 1.84 [place] # (Auto) 0.5 Eos # (Auto) 0.3 Baso # (Auto) 0.1 Abs Immat Gran (auto) 0.02 Absolute Neuts (auto) 4.2 Absolute Nucleated RBC 0.000 Nucleated RBC % 0.0 PT 12.7 INR 0.9 APTT 26.5 Sodium 138 Potassium 4.3 Chloride 100 Carbon Dioxide 25 Anion Gap 13 H BUN 20 Creatinine 1.31 H Estim Creat Clear Calc 53 Estimated GFR 53 L Glucose 102 Calcium 10.0 Magnesium Total Bilirubin 1.0 AST 25 ALT 22 Alkaline Phosphatase 109 Troponin I < 0.012 0.029 D NT-Pro-B Natriuret Pep < 20 Total Protein 8.0 Albumin 4.8 Triglycerides Cholesterol LDL Cholesterol Direct HDL Direct Lipase 203 TSH (Reflex) Free T4 Influenza A (RT-PCR) Negative Influenza B (RT-PCR) Negative RSV (RT-PCR) Negative SARS-CoV-2 RNA (RT-PCR) Negative 10/01/24 10/02/24 18:44 04:32 WBC 6.2 RBC 5.03 Hgb 15.1 Hct 45.1 MCV 89.7 MCH 30.0 MCHC 33.5 RDW 13.1 Plt Count 185 MPV 10.4 Immature Gran % (Auto) Neut % (Auto) Lymph % (Auto) [place] % (Auto) Eos % (Auto) Baso % (Auto) Lymph # (Auto) [place] # (Auto) Eos # (Auto) Baso # (Auto) Abs Immat Gran (auto) Absolute Neuts (auto) Absolute Nucleated RBC Nucleated RBC % PT INR APTT Sodium 138 Potassium 4.2 Chloride 102 Carbon Dioxide 29 Anion Gap 7 BUN 19 Creatinine 1.28 Estim Creat Clear Calc 55 Estimated GFR 54 L Glucose 94 Calcium 9.5 Magnesium 1.9 Total Bilirubin AST ALT Alkaline Phosphatase Troponin I 0.073 H* D NT-Pro-B Natriuret Pep Total Protein Albumin Triglycerides 85 Cholesterol 151 LDL Cholesterol Direct 68 HDL Direct 52 Lipase TSH (Reflex) 4.020 Free T4 0.96 Influenza A (RT-PCR) Influenza B (RT-PCR) RSV (RT-PCR) SARS-CoV-2 RNA (RT-PCR)
[2024-10-02 10:09] LABS: Basophils Absolute Auto 0.1 K/mm3 (0.0-0.1); Basophils Percent Auto 0.9 % (0.2-1.2); Eosinophils Absolute Auto 0.2 K/mm3 (0-0.3); Eosinophils Percent Auto 4.2 % (0-4.4); Hematocrit 45.4 % (42.0-52.0); Hemoglobin 15.2 g/dL (14.0-18.0); Immature Granulocyte Absolute 0.02 K/mm3 (0.00-0.031); Immature Granulocyte Percent A 0.4 % (0-0.5); Lymphocytes Absolute Auto 1.25 K/mm3 (0.9-3.2); Lymphocytes Percent Auto 23.7 % (18.3-44.2); Mean Corpuscular HGB Conc 33.5 g/dl (32-36); Mean Corpuscular Hemoglobin 30.2 pg (26-34); Mean Corpuscular Volume 90.1 fl (80-100); Mean Platelet Volume 10.6 fl (7.4-10.4); Monocytes Absolute Auto 0.4 K/mm3 (0.1-0.6); Neutrophils Absolute Auto 3.3 K/mm3 (1.3-6.7); Neutrophils Percent Auto 62.8 % (45.5-73.1); Platelet Count Result 171 k/mm3 (150-375); Red Blood Count 5.04 M/mm3 (4.6-6.20); Red Cell Distribution Width 13.1 % (11.5-14.5); White Blood Count 5.3 K/mm3 (4.5-10.0)
[2024-10-02 10:15] LABS: Troponin I 0.062 ng/mL (0.000-0.034)
[2024-10-02] MEDS: HEPARIN SODIUM 5,000 UNITS/ML VIAL 4000 UNITS IV PUSH (10:29)
[2024-10-02] MEDS: HEPARIN SOD/D5W 100 UNITS/ML 25,000 UNITS/250 ML BAG 10 UNITS IV CONT (10:30)
[2024-10-02 10:39] LABS: Prothrombin Time 13.4 Seconds (11.1-14.7)
[2024-10-02 10:40] LABS: Partial Thromboplastin Time 28.5 Seconds (22.3-36.8)
[2024-10-02 11:26] LABS: Total Triiodothyronine (T3) 0.87 NG/ML (0.97-1.69)
--- NOTE | 2024-10-02 12:06 | PC.NURSE ---
Pt to [facility] for cardiac catheterization. Heparin drip paused by maintenance shop laborer RN.
--- NOTE | 2024-10-02 13:31 | WPDMODSED ---
Moderate Sedation Note-Pt Data Patient Data Allergies Allergy/AdvReac Type Severity Reaction Status Date / Time No Known Allergies Allergy Verified 07/14/24 07:23 Home Medications ?Medication ?Instructions ?Recorded ?Confirmed ?Type aspirin 81 mg tablet,delayed 81 mg PO DAILY 09/05/19 10/01/24 History release (Aspir-) atorvastatin 20 mg tablet 20 mg PO DAILY #90 tabs 04/20/24 10/01/24 Rx levothyroxine 112 mcg tablet 112 mcg PO DAILY #90 tabs 07/14/24 10/01/24 Rx lisinopril 20 1 tablet PO DAILY #90 tabs 07/14/24 10/01/24 Rx mg-hydrochlorothiazide 12.5 mg tablet Current Medications: Active Medications Acetaminophen (Acetaminophen 325 Mg Tablet) 650 mg PO Q4H PRN PRN Reason: Mild Pain (1-3) or Fever Aspirin (Aspirin 81 Mg Chewable Tablet) 81 mg PO DAILY@0800 [facility] Last Admin: 10/02/24 08:36 Dose: Not Given Aspirin (Aspirin 81 Mg Enteric Tablet) 81 mg PO DAILY [facility] Last Admin: 10/02/24 08:37 Dose: 81 mg Atorvastatin Calcium (Atorvastatin 40 Mg Tablet) 80 mg PO DAILY [facility] Enoxaparin Sodium (Enoxaparin 40 Mg/0.4 Ml Syringe) 40 mg SUB-Q DAILY [facility] Last Admin: 10/02/24 10:37 Dose: Not Given Heparin Sodium (Porcine) (Heparin Sodium 5,000 Units/Ml Vial) 4,000 units IV PUSH PRN PRN PRN Reason: aPTT less than 55 seconds Heparin Sodium (Porcine) (Heparin Sodium 5,000 Units/Ml Vial) 3,500 units IV PUSH PRN PRN PRN Reason: aPTT 55 - 70 seconds Hydrochlorothiazide (Hydrochlorothiazide 12.5 Mg Capsule) 12.5 mg PO DAILY [facility] Last Admin: 10/02/24 10:37 Dose: Not Given Heparin Sodium/Dextrose (Heparin Sodium/D5w 100 Units/Ml) 25,000 units in 250 mls @ 0 mls/hr IV CONT .Q0M [facility]; Protocol Last Titration: 10/02/24 12:07 Dose: 0 units/hr, 0 mls/hr Sodium Chloride (Normal Saline Iv) 1,000 mls @ 125 mls/hr IV CONT .Q8H ONE Stop: 10/02/24 21:25 Levothyroxine Sodium (Levothyroxine Sodium 112 Mcg Tablet) 112 mcg PO DAILY@0630 [facility] Last Admin: 10/02/24 08:38 Dose: 112 mcg Lisinopril (Lisinopril 20 Mg Tablet) 20 mg PO DAILY [facility] Last Admin: 10/02/24 08:38 Dose: 20 mg Morphine Sulfate (Morphine Sulfate (*Crx) 2 Mg/Ml Inj) 2 mg IV PUSH Q4H PRN PRN Reason: Pain Rated 7-10 Perflutren Lipid Microsphere (Perflutren Lipid Microspheres 1.5 Ml Vial Diluted To 10 Ml Total Volume) 0 ml IV PUSH ONCE PRN; Protocol PRN Reason: adequate visualization Stop: 10/04/24 20:37 Sedation/Anesthesia: No previous sedation/anesthesia problems (including family history). [facility], LAT[facility] Past Medical History Medical History Chronic kidney disease, stage 3 BMI 35.0-35.9,adult History of testicular lump High cholesterol Hypertension Benign prostatic hyperplasia (BPH) with urinary urgency Surgical History Surgical History History of testicular mass excision Family History Family History Father Alcoholic cirrhosis Mother Brain cancer Sibling addiction Acute myocardial infarction Brain cancer Exposure to Agent [place] Social History Social History Smoking status: Never smoker Second hand tobacco smoke exposure: No Alcohol intake: current Alcohol use details: 4 beer every month Substance use: never Substance use type: does not use Do You Feel Safe in your Home?: Yes Lack of Transportation: No Lack of Food: Never True Current Housing: I Have Housing Concerned About Future Housing: No Difficulty Paying Gas/Electric Bills: No Difficulty Paying for Meds: No Currently Unemployed: No Education: High School Diploma/GED Difficulty w/ Childcare or Family Care: No Living arrangements: with family Occupation/Education: retired Additional occupation/education comments: [employer] Gender identity (if verbalized by the patient): Male Spiritual care concerns: No Mod Sed Physical Exam Physical Exam Pre Procedural Exam: Normal: Lungs, Heart Rate and Heart Rhythm Hours since solid foods: 12 Hours since liquid intake: 12 Mallampati Classification: class II Internal Medicine - PN: Obj Da Vital Signs Vital Signs: Vital Signs - 24 hr 10/01/24 14:32 10/01/24 15:13 10/01/24 17:38 Temperature 36.5 C Pulse Rate 90 87 Respiratory Rate 16 18 Blood Pressure 141/87 H 151/79 H Pulse Oximetry 96 96 Oxygen Delivery Room Air 10/01/24 18:00 10/01/24 18:15 10/01/24 20:00 Temperature 36.4 C L Pulse Rate 85 76 Respiratory Rate 18 Blood Pressure 145/72 H Pulse Oximetry 96 Oxygen Delivery Room Air 10/01/24 20:00 10/01/24 20:00 10/01/24 22:00 Temperature Pulse Rate 79 79 Respiratory Rate Blood Pressure Pulse Oximetry Oxygen Delivery Room Air 10/02/24 00:00 10/02/24 00:00 10/02/24 00:00 Temperature 36.3 C L Pulse Rate 78 75 Respiratory Rate 20 Blood Pressure 139/84 Pulse Oximetry 97 Oxygen Delivery Room Air 10/02/24 03:41 10/02/24 04:00 10/02/24 04:00 Temperature 36.4 C Pulse Rate 71 68 Respiratory Rate 18 Blood Pressure 151/92 H Pulse Oximetry 95 Oxygen Delivery Room Air 10/02/24 07:36 10/02/24 08:00 10/02/24 11:55 Temperature 36.4 C 36.6 C Pulse Rate 68 68 65 Respiratory Rate 18 19 22 H Blood Pressure 128/69 117/77 Pulse Oximetry 99 95 96 Oxygen Delivery Room Air Intake/Output Intake/Output: Intake & Output 09/29/24 09/30/24 10/01/24 10/02/24 23:59 23:59 23:59 23:59 Intake Total 240 366.2 Output Total 100 1150 Balance 140 -783.8 Meds/Results Medications: Active Medications Generic Name Dose Route Start Last Admin Trade Name Freq PRN Reason Stop Dose Admin Acetaminophen 650 mg 10/01/24 15:12 Acetaminophen 325 Mg Tablet PO Q4H PRN Mild Pain (1-3) or Fever Aspirin 81 mg 10/02/24 08:00 10/02/24 08:36 Aspirin 81 Mg Chewable Tablet PO Not Given DAILY@0800 [facility] Aspirin 81 mg 10/02/24 09:00 10/02/24 08:37 Aspirin 81 Mg Enteric Tablet PO 81 mg DAILY [facility] Administration Atorvastatin Calcium 80 mg 10/03/24 09:00 Atorvastatin 40 Mg Tablet PO DAILY [facility] Enoxaparin Sodium 40 mg 10/02/24 09:00 10/02/24 10:37 Enoxaparin 40 Mg/0.4 Ml Syringe SUB-Q Not Given DAILY [facility] Heparin Sodium (Porcine) 4,000 units 10/02/24 09:27 Heparin Sodium 5,000 Units/Ml Vial IV PUSH PRN PRN aPTT less than 55 seconds Heparin Sodium (Porcine) 3,500 units 10/02/24 09:27 Heparin Sodium 5,000 Units/Ml Vial IV PUSH PRN PRN aPTT 55 - 70 seconds Hydrochlorothiazide 12.5 mg 10/02/24 09:00 10/02/24 10:37 Hydrochlorothiazide 12.5 Mg Capsule PO Not Given DAILY [facility] Heparin Sodium/Dextrose 25,000 units in 250 mls @ 0 mls/hr 10/02/24 10:00 10/02/24 12:07 Heparin Sodium/D5w 100 Units/Ml IV CONT 0 units/hr .Q0M [facility] 0 mls/hr Titration Protocol Sodium Chloride 1,000 mls @ 125 mls/hr 10/02/24 13:26 Normal Saline Iv IV CONT 10/02/24 21:25 .Q8H ONE Levothyroxine Sodium 112 mcg 10/02/24 09:00 10/02/24 08:38 Levothyroxine Sodium 112 Mcg Tablet PO 112 mcg DAILY@0630 [facility] Administration Lisinopril 20 mg 10/02/24 09:00 10/02/24 08:38 Lisinopril 20 Mg Tablet PO 20 mg DAILY [facility] Administration Morphine Sulfate 2 mg 10/01/24 20:37 Morphine Sulfate (*Crx) 2 Mg/Ml Inj IV PUSH Q4H PRN Pain Rated 7-10 Perflutren Lipid Microsphere 0 ml 10/01/24 20:37 Perflutren Lipid Microspheres 1.5 Ml Vial Diluted To 10 Ml Total Volume IV PUSH 10/04/24 20:37 ONCE PRN adequate visualization Protocol Radiology Results: ITS Impressions Chest X-Ray 10/01/24 13:04 IMPRESSION: 1. Airspace opacities in left lower lung zone, consistent with atelectasis versus pneumonia. Labs 10/02/24 09:58 10/02/24 04:32 Labs: Laboratory Results - last 24 hr 10/01/24 10/01/24 10/01/24 12:26 15:11 15:12 WBC RBC Hgb Hct MCV MCH MCHC RDW Plt Count MPV Immature Gran % (Auto) Neut % (Auto) Lymph % (Auto) [place] % (Auto) Eos % (Auto) Baso % (Auto) Lymph # (Auto) [place] # (Auto) Eos # (Auto) Baso # (Auto) Abs Immat Gran (auto) Absolute Neuts (auto) Absolute Nucleated RBC Nucleated RBC % PT INR APTT Sodium Potassium Chloride Carbon Dioxide Anion Gap BUN Creatinine Estim Creat Clear Calc Estimated GFR Glucose Calcium Magnesium Troponin I 0.029 D NT-Pro-B Natriuret Pep < 20 Triglycerides Cholesterol LDL Cholesterol Direct HDL Direct TSH (Reflex) Free T4 Total T3 Influenza A (RT-PCR) Negative Influenza B (RT-PCR) Negative RSV (RT-PCR) Negative SARS-CoV-2 RNA (RT-PCR) Negative 10/01/24 10/02/24 10/02/24 18:44 04:26 04:32 WBC 6.2 RBC 5.03 Hgb 15.1 Hct 45.1 MCV 89.7 MCH 30.0 MCHC 33.5 RDW 13.1 Plt Count 185 MPV 10.4 Immature Gran % (Auto) Neut % (Auto) Lymph % (Auto) [place] % (Auto) Eos % (Auto) Baso % (Auto) Lymph # (Auto) [place] # (Auto) Eos # (Auto) Baso # (Auto) Abs Immat Gran (auto) Absolute Neuts (auto) Absolute Nucleated RBC Nucleated RBC % PT INR APTT Sodium 138 Potassium 4.2 Chloride 102 Carbon Dioxide 29 Anion Gap 7 BUN 19 Creatinine 1.28 Estim Creat Clear Calc 55 Estimated GFR 54 L Glucose 94 Calcium 9.5 Magnesium 1.9 Troponin I 0.073 H* D 0.062 H* NT-Pro-B Natriuret Pep Triglycerides 85 Cholesterol 151 LDL Cholesterol Direct 68 HDL Direct 52 TSH (Reflex) 4.020 Free T4 0.96 Total T3 0.87 L Influenza A (RT-PCR) Influenza B (RT-PCR) RSV (RT-PCR) SARS-CoV-2 RNA (RT-PCR) 10/02/24 09:58 WBC 5.3 RBC 5.04 Hgb 15.2 Hct 45.4 MCV 90.1 MCH 30.2 MCHC 33.5 RDW 13.1 Plt Count 171 MPV 10.6 H Immature Gran % (Auto) 0.4 Neut % (Auto) 62.8 Lymph % (Auto) 23.7 [place] % (Auto) 8.0 Eos % (Auto) 4.2 Baso % (Auto) 0.9 Lymph # (Auto) 1.25 [place] # (Auto) 0.4 Eos # (Auto) 0.2 Baso # (Auto) 0.1 Abs Immat Gran (auto) 0.02 Absolute Neuts (auto) 3.3 Absolute Nucleated RBC 0.000 Nucleated RBC % 0.0 PT 13.4 INR 1.0 APTT 28.5 Sodium Potassium Chloride Carbon Dioxide Anion Gap BUN Creatinine Estim Creat Clear Calc Estimated GFR Glucose Calcium Magnesium Troponin I NT-Pro-B Natriuret Pep Triglycerides Cholesterol LDL Cholesterol Direct HDL Direct TSH (Reflex) Free T4 Total T3 Influenza A (RT-PCR) Influenza B (RT-PCR) RSV (RT-PCR) SARS-CoV-2 RNA (RT-PCR) ASA Classification/Sedation ASA Classification/Sedation ASA Class: III Emergent: No Risks: Risks, benefits and alternatives explained and patient/family accepted plan for sedation. Patient re-evaluated immediately prior to sedation.
--- NOTE | 2024-10-02 13:32 | P.PCNCC_ITS ---
Cardiac Cath Procedure Note Date of procedure:: 10/02/24 Performing physician:: Britney Lucia MD Indication:: NSTEMI Brief clinical history:: 79 y/o male patient presented with chest pain and noted to have elevated troponin. He was given asa, started on heparin drip and scheduled for cardiac catheterization for further evaluation. Procedure Procedure performed:: Radial access Selective right and left coronary angiogram Sedation/Medication given:: Versed 1 mg Fentanyl 100 mcg Case start time: 12:24 p.m. Case end time 1:00 p.m. Access site:: Right radial artery Estimated blood loss:: 20cc Procedure note:: Patient is brought to the cardiac lab support service tech for angiogram and possible intervention. The risks, benefits, alternatives, and possible complications of this procedure was discussed, understood and accepted by the patient. Moderate sedation: I administered moderate sedation throughout the procedure. An independent trained provider pushed medications at my discretion and monitored the patient's level of consciousness and physiological status throughout under my supervision. [id number] time was provided for the entire procedure. Please refer to electronic medical record for total sedation doses provided. Intra service time: 36 minutes Hemodynamic data: Opening aortic pressure was 102/80/92 mm Hg. LVEDP was not performed. Catheters used for selective coronary angiograms: Six Slovenian JL 3.5 Six Slovenian JR4 Findings:: 1. The left main coronary artery arises from the left coronary cusp and divides into the left anterior descending and left circumflex. There is 60-70% ostial left main stenosis with dampening of blood pressure with engagement of left main . 100 mcg of intracoronary nitroglycerin was administered and repeat angiography was performed and showed 60% stenosis of ostial left main. 2. The left anterior descending artery arises from the left main and gives off 2 big diagnosis and septal perforators before wrapping around the LV apex. There is 90% stenosis in the mid LAD before the takeoff of a large diagonal. This is the culprit lesion. 3. The left circumflex artery arises from the left main and is a large sized anatomically nondominant artery. It is free of angiographic disease. 4. The right coronary artery arises from the right coronary cusp and gives off PDA and PLV branch. It is anatomically dominant. It has 70% stenosis in the distal RCA prior to bifurcation of PDA and PL. Conclusion:: 1. NSTEMI 2. Obstructive triple-vessel disease with 70% stenosis of distal RCA prior to large bifurcation, 60-70% stenosis of ostial left main, 90% stenosis of mid LAD. Assessment and Plan Assessment and plan (1) NSTEMI (non-ST elevated myocardial infarction): Code(s): I21.4 - Non-ST elevation (NSTEMI) myocardial infarction Status: Acute Assessment and Plan: -Continue aspirin 81 mg daily -Resume heparin after removing TR band -Atorvastatin 80 mg daily -Give 1 L normal saline at 100 mL/hour -Patient remains chest pain free. No acute ST T wave changes on EKG and electrically stable. Given significant ostial left main, mid LAD and distal RCA disease patient would be a good candidate for CABG surgery. Transfer to [facility] for CT surgery consult for CABG evaluation -Hold off any blood blood pressure lowering medications including beta-jerome (2) Hyperlipidemia: Qualifiers: Hyperlipidemia type: other hyperlipidemia Qualified Code(s): E78.49 - Other hyperlipidemia Code(s): E78.5 - Hyperlipidemia, unspecified Status: Acute Assessment and Plan: Atorvastatin 80 mg daily (3) Hypertension: Qualifiers: Hypertension type: primary hypertension Qualified Code(s): I10 - Essential (primary) hypertension Code(s): I10 - Essential (primary) hypertension Status: Acute Assessment and Plan: Hold off any blood pressure lowering medications as SBP in the 90s to 100s range
[2024-10-02] MEDS: SODIUM CHLORIDE 0.9% IV 1,000 ML 125 ML IV CONT (13:53)
--- NOTE | 2024-10-02 16:44 | PC.NURSE ---
Pt returned from quality lab technician via wheelchair. Heparin gtt infusing. at bedside
[2024-10-02 23:01] LABS: Partial Thromboplastin Time 91.7 Seconds (22.3-36.8)
[2024-10-03] VITALS (9 sets, daily range): BP systolic 117–149; BP diastolic 66–75; PULSE 61–80; RESP 14–20; TEMP 36.3–36.8; O2SAT 96–100
[2024-10-03 04:41] LABS: Basophils Absolute Auto 0.1 K/mm3 (0.0-0.1); Basophils Percent Auto 1.1 % (0.2-1.2); Eosinophils Absolute Auto 0.2 K/mm3 (0-0.3); Eosinophils Percent Auto 3.5 % (0-4.4); Hematocrit 44.1 % (42.0-52.0); Hemoglobin 14.9 g/dL (14.0-18.0); Immature Granulocyte Absolute 0.02 K/mm3 (0.00-0.031); Immature Granulocyte Percent A 0.3 % (0-0.5); Lymphocytes Absolute Auto 1.56 K/mm3 (0.9-3.2); Lymphocytes Percent Auto 24.5 % (18.3-44.2); Mean Corpuscular HGB Conc 33.8 g/dl (32-36); Mean Corpuscular Hemoglobin 30.2 pg (26-34); Mean Corpuscular Volume 89.5 fl (80-100); Mean Platelet Volume 10.1 fl (7.4-10.4); Monocytes Absolute Auto 0.5 K/mm3 (0.1-0.6); Monocytes Percent Auto 7.4 % (2.6-8.5); Neutrophils Percent Auto 63.2 % (45.5-73.1); Platelet Count Result 168 k/mm3 (150-375); Red Blood Count 4.93 M/mm3 (4.6-6.20); White Blood Count 6.4 K/mm3 (4.5-10.0)
[2024-10-03 04:53] LABS: Alanine Aminotransferase 19 U/L (6-50); Albumin Level 4.2 g/dL (3.5-5.1); Alkaline Phosphatase 84 U/L (38-126); Anion Gap 10 mmol/L (4-12); Aspartate Amino Transferase 23 U/L (17-59); Blood Urea Nitrogen 17 mg/dL (9-20); Calcium 9.1 mg/dL (8.4-10.2); Carbon Dioxide 25 mmol/L (22-30); Chloride 104 mmol/L (98-107); Estimated CRCL calculation 65 ml/min; Estimated Glomerular Filt Rate > 60; Glucose 96 mg/dL (65-110); Magnesium 1.9 mg/dL (1.6-2.3); Potassium 4.1 mmol/L (3.4-5.0); Sodium 139 mmol/L (137-145)
[2024-10-03 05:03] LABS: Partial Thromboplastin Time 66.5 Seconds (22.3-36.8)
[2024-10-03] MEDS: LEVOTHYROXINE SODIUM 112 MCG TABLET PO (05:33)
[2024-10-03] MEDS: HEPARIN SODIUM 5,000 UNITS/ML VIAL 3500 UNITS IV PUSH (05:37)
[2024-10-03] MEDS: HEPARIN SOD/D5W 100 UNITS/ML 25,000 UNITS/250 ML BAG 12 UNITS IV CONT (09:38)
[2024-10-03] MEDS: hydroCHLOROthiazide 12.5 MG CAPSULE PO (09:39)
[2024-10-03] MEDS: ATORVASTATIN 40 MG TABLET 80 MG PO (09:39)
[2024-10-03] MEDS: ASPIRIN 81 MG ENTERIC TABLET PO (09:40)
[2024-10-03] MEDS: lisinopriL 20 MG TABLET PO (09:40)
--- NOTE | 2024-10-03 12:18 | PM.PNCARD ---
Progress Note: A&P Assessment and Plan (1) NSTEMI (non-ST elevated myocardial infarction): Code(s): I21.4 - Non-ST elevation (NSTEMI) myocardial infarction Status: Acute Assessment and Plan: -Continue aspirin 81 mg daily -Continue heparin gtt -Atorvastatin 80 mg daily -Patient remains chest pain free. No acute ST T wave changes on EKG and electrically stable. Given significant ostial left main, mid LAD and distal RCA disease patient would be a good candidate for CABG surgery. Transfer to [facility] for CT surgery consult for CABG evaluation. Awaiting transfer -Hold off any blood blood pressure lowering medications including beta-jerome (2) Hyperlipidemia: Qualifiers: Hyperlipidemia type: other hyperlipidemia Qualified Code(s): E78.49 - Other hyperlipidemia Code(s): E78.5 - Hyperlipidemia, unspecified Status: Acute Assessment and Plan: Atorvastatin 80 mg daily (3) Hypertension: Qualifiers: Hypertension type: primary hypertension Qualified Code(s): I10 - Essential (primary) hypertension Code(s): I10 - Essential (primary) hypertension Status: Acute Assessment and Plan: Hold off any blood pressure lowering medications as SBP in the 90s to 100s range Subjective Date/time seen: 10/03/24 12:18 Interval history: Cardiology follow up visit States he feels better today. He denies any chest pain. Review of Systems Review of Systems: All systems reviewed & are unremarkable except as noted in HPI and below Exam Const: General: comfortable, no acute distress, alert and awake Orientation/consciousness: patient oriented x3 HENMT: Head: normal to inspection Eyes: General: appearance normal, both eyes and all related structures Pupils: Equal, round and reactive pupils present Neck: Neck: normal visual inspection, supple and no JVD Carotids: normal carotid upstroke Resp: Effort & Inspection: normal respiratory effort Auscultation: clear to auscultation bilaterally Cardio: Rate: regular rate Rhythm: regular rhythm Heart sounds: S1 normal heart sound present, S2 normal heart sound present and Murmur heart sound present systolic II/, at the apex, at the left sternal border and at the right sternal border GI: Auscultation: normal bowel sounds Skin: General skin exam: normal color Neuro: General: patient oriented x3 Cranial nerves: Yes Equal, round and reactive pupils present Extrem: General: normal to inspection Other: no edema, good perfusion R radial arterial access site free from bleeding, hematoma. Radial pulse intact. Psych: Appearance: grossly normal Mental Status: mental status grossly normal Objective Data Vital Signs Vital Signs: Vital Signs - 24 hr 10/02/24 13:20 10/02/24 13:20 10/02/24 13:30 Temperature Pulse Rate 62 61 Pulse Rate [Right Radial] 63 Respiratory Rate 17 14 Blood Pressure 134/79 134/79 Pulse Oximetry 94 94 Oxygen Delivery Room Air Room Air 10/02/24 13:30 10/02/24 13:45 10/02/24 13:45 Temperature Pulse Rate 65 Pulse Rate [Right Radial] 62 67 Respiratory Rate 14 Blood Pressure 129/76 Pulse Oximetry 93 Oxygen Delivery Room Air 10/02/24 14:00 10/02/24 14:00 10/02/24 14:15 Temperature Pulse Rate 65 62 Pulse Rate [Right Radial] 65 Respiratory Rate 14 14 Blood Pressure 132/82 125/82 Pulse Oximetry 93 93 Oxygen Delivery Room Air Room Air 10/02/24 14:15 10/02/24 14:30 10/02/24 14:30 Temperature Pulse Rate 64 Pulse Rate [Right Radial] 65 62 Respiratory Rate 15 Blood Pressure 137/79 Pulse Oximetry 93 Oxygen Delivery Room Air 10/02/24 14:45 10/02/24 14:45 10/02/24 15:00 Temperature Pulse Rate 68 68 Pulse Rate [Right Radial] 68 Respiratory Rate 16 16 Blood Pressure 128/67 137/76 Pulse Oximetry 93 94 Oxygen Delivery Room Air Room Air 10/02/24 15:00 10/02/24 15:15 10/02/24 15:15 Temperature Pulse Rate 71 Pulse Rate [Right Radial] 61 71 Respiratory Rate 16 Blood Pressure 132/92 H Pulse Oximetry 93 Oxygen Delivery Room Air 10/02/24 15:30 10/02/24 15:30 10/02/24 15:45 Temperature Pulse Rate 63 65 Pulse Rate [Right Radial] 69 Respiratory Rate 13 15 Blood Pressure 139/88 132/80 Pulse Oximetry 94 94 Oxygen Delivery Room Air Room Air 10/02/24 15:45 10/02/24 16:00 10/02/24 16:00 Temperature Pulse Rate 65 Pulse Rate [Right Radial] 66 65 Respiratory Rate 14 Blood Pressure 131/74 Pulse Oximetry 93 Oxygen Delivery Room Air 10/02/24 16:30 10/02/24 16:30 10/02/24 17:00 Temperature Pulse Rate 70 68 Pulse Rate [Right Radial] 70 Respiratory Rate 17 Blood Pressure 132/79 141/75 H Pulse Oximetry 93 96 Oxygen Delivery Room Air 10/02/24 17:30 10/02/24 18:00 10/02/24 18:30 Temperature Pulse Rate 68 70 73 Pulse Rate [Right Radial] Respiratory Rate Blood Pressure 128/72 124/84 Pulse Oximetry 98 95 Oxygen Delivery 10/02/24 19:30 10/02/24 20:00 10/02/24 20:00 Temperature 36.3 C L Pulse Rate 74 71 Pulse Rate [Right Radial] Respiratory Rate 18 Blood Pressure 141/84 H Pulse Oximetry 97 95 Oxygen Delivery Room Air 10/02/24 20:00 10/02/24 23:46 10/03/24 00:00 Temperature 36.4 C 36.3 C L Pulse Rate 66 75 Pulse Rate [Right Radial] Respiratory Rate 16 20 Blood Pressure 121/73 127/74 Pulse Oximetry 98 98 97 Oxygen Delivery Room Air 10/03/24 00:00 10/03/24 04:00 10/03/24 04:00 Temperature 36.7 C Pulse Rate 61 74 Pulse Rate [Right Radial] Respiratory Rate 18 Blood Pressure 117/70 Pulse Oximetry 98 100 Oxygen Delivery Room Air 10/03/24 08:00 10/03/24 08:00 10/03/24 10:00 Temperature 36.4 C Pulse Rate 80 77 71 Pulse Rate [Right Radial] Respiratory Rate 18 Blood Pressure 122/66 Pulse Oximetry 96 Oxygen Delivery 10/03/24 11:37 Temperature 36.8 C Pulse Rate 75 Pulse Rate [Right Radial] Respiratory Rate 14 Blood Pressure 149/75 H Pulse Oximetry 96 Oxygen Delivery Intake/Output Intake/Output: Intake & Output 09/30/24 10/01/24 10/02/24 10/03/24 23:59 23:59 23:59 23:59 Intake Total 240 1431.2 604.4 Output Total 100 1550 750 Balance 140 -118.8 -145.6 Meds/Results Medications: Active Medications Generic Name Dose Route Start Last Admin Trade Name Freq PRN Reason Stop Dose Admin Acetaminophen 650 mg 10/01/24 15:12 Acetaminophen 325 Mg Tablet PO Q4H PRN Mild Pain (1-3) or Fever Aspirin 81 mg 10/02/24 09:00 10/03/24 09:40 Aspirin 81 Mg Enteric Tablet PO 81 mg DAILY [facility] Administration Atorvastatin Calcium 80 mg 10/03/24 09:00 10/03/24 09:39 Atorvastatin 40 Mg Tablet PO 80 mg DAILY [facility] Administration Heparin Sodium (Porcine) 4,000 units 10/02/24 09:27 Heparin Sodium 5,000 Units/Ml Vial IV PUSH PRN PRN aPTT less than 55 seconds Heparin Sodium (Porcine) 3,500 units 10/02/24 09:27 10/03/24 05:37 Heparin Sodium 5,000 Units/Ml Vial IV PUSH 3,500 units PRN PRN Administration aPTT 55 - 70 seconds Hydrochlorothiazide 12.5 mg 10/02/24 09:00 10/03/24 09:39 Hydrochlorothiazide 12.5 Mg Capsule PO 12.5 mg DAILY [facility] Administration Heparin Sodium/Dextrose 25,000 units in 250 mls @ 12 mls/hr 10/02/24 10:00 10/03/24 09:38 Heparin Sodium/D5w 100 Units/Ml IV CONT 1,200 units/hr .[id number] [facility] 12 mls/hr Administration Protocol 1,200 UNITS/HR Levothyroxine Sodium 112 mcg 10/02/24 09:00 10/03/24 05:33 Levothyroxine Sodium 112 Mcg Tablet PO 112 mcg DAILY@0630 [facility] Administration Lisinopril 20 mg 10/02/24 09:00 10/03/24 09:40 Lisinopril 20 Mg Tablet PO 20 mg DAILY [facility] Administration Morphine Sulfate 2 mg 10/01/24 20:37 Morphine Sulfate (*Crx) 2 Mg/Ml Inj IV PUSH Q4H PRN Pain Rated 7-10 Perflutren Lipid Microsphere 0 ml 10/01/24 20:37 Perflutren Lipid Microspheres 1.5 Ml Vial Diluted To 10 Ml Total Volume IV PUSH 10/04/24 20:37 ONCE PRN adequate visualization Protocol Radiology Results: ITS Impressions Chest X-Ray 10/01/24 13:04 IMPRESSION: 1. Airspace opacities in left lower lung zone, consistent with atelectasis versus pneumonia. Labs Labs: Laboratory Results - last 24 hr 10/02/24 10/03/24 22:41 04:34 WBC 6.4 RBC 4.93 Hgb 14.9 Hct 44.1 MCV 89.5 MCH 30.2 MCHC 33.8 RDW 13.0 Plt Count 168 MPV 10.1 Immature Gran % (Auto) 0.3 Neut % (Auto) 63.2 Lymph % (Auto) 24.5 [place] % (Auto) 7.4 Eos % (Auto) 3.5 Baso % (Auto) 1.1 Lymph # (Auto) 1.56 [place] # (Auto) 0.5 Eos # (Auto) 0.2 Baso # (Auto) 0.1 Abs Immat Gran (auto) 0.02 Absolute Neuts (auto) 4.0 Absolute Nucleated RBC 0.000 Nucleated RBC % 0.0 APTT 91.7 H 66.5 H Sodium 139 Potassium 4.1 Chloride 104 Carbon Dioxide 25 Anion Gap 10 BUN 17 Creatinine 1.05 Estim Creat Clear Calc 65 Estimated GFR > 60 Glucose 96 Calcium 9.1 Magnesium 1.9 Total Bilirubin 1.0 AST 23 ALT 19 Alkaline Phosphatase 84 Total Protein 7.0 Albumin 4.2 Quality VTE Prophylaxis VTE prophylaxis: pharmacologic ordered
[2024-10-03 12:26] LABS: Partial Thromboplastin Time 99.5 Seconds (22.3-36.8)
--- NOTE | 2024-10-03 13:50 | P.PNIM_ITS ---
Progress Note: A&P Assessment and Plan (1) Exertional chest pain: Code(s): R07.9 - Chest pain, unspecified Status: Acute (2) Hypertension: Qualifiers: Hypertension type: primary hypertension Qualified Code(s): I10 - Essential (primary) hypertension Code(s): I10 - Essential (primary) hypertension Status: Acute (3) Hyperlipidemia: Qualifiers: Hyperlipidemia type: other hyperlipidemia Qualified Code(s): E78.49 - Other hyperlipidemia Code(s): E78.5 - Hyperlipidemia, unspecified Status: Acute (4) Hypothyroidism: Qualifiers: Hypothyroidism type: acquired Qualified Code(s): E03.9 - Hypothyroidism, unspecified Code(s): E03.9 - Hypothyroidism, unspecified Status: Acute (5) Chronic kidney disease, stage 3: Code(s): N18.30 - Chronic kidney disease, stage 3 unspecified Status: Acute Plan This is a very pleasant 79-year-old male with history of hypertension, hyperlipidemia, chronic kidney disease stage 3, benign prostatic hyperplasia, hypothyroidism, and kidney stones who presented to the emergency department via private vehicle for evaluation of chest pain. He gives a 3 history of exertional chest pain, describing a nonradiating pressure-like discomfort in the substernal region with activity. For example, the chest discomfort occurred while he was shoveling and working out in his garage. The pain resolves within a short period of time after he stops to rest. He denies associated lightheadedness, dizziness, sweats, nausea, and vomiting. He had a stress test done several years ago which was unremarkable and he has no known history of coronary disease. At the time my evaluation he is without discomfort and has no complaints. He denies recent cold and flu symptoms, pleuritic pain, orthopnea, lower extremity edema, calf pain, bloating, belching, and abdominal pain. In the ED: Vital signs were stable on arrival. CMP and CBC were pretty unremarkable on arrival and his creatinine is stable compared to previous labs. Chest x-ray with airspace opacities in the left lung zone consistent with atelectasis versus pneumonia. Influenza RSV COVID swab was negative. Initial troponin was less than 0.012. EKG showed sinus tachycardia with a rate of 106 and frequent PVCs in a bigeminal pattern and incomplete right bundle-branch block. EKG with no acute ST-T changes. He was given aspirin 324 mg and is being admitted in this setting for close monitoring and Cardiology consultation. Exertional chest pain initial troponin negative however subsequent increase to 0.073. Suggestive of non ST elevation [place]. received aspirin 324 mg x 1 followed by aspirin 81 mg daily. Already on atorvastatin 20 mg daily. LDL is 68. Increase atorvastatin to 80 mg daily. Heparin drip has been started. Status post cardiac catheterization 10/02/2024: Obstructive triple-vessel disease with 70% stenosis of distal RCA prior to large bifurcation, 60-70% stenosis of ostial left main, 90% stenosis of mid LAD. Plan for CT surgery consultation and awaiting transfer to [facility]. Systolic murmur in aortic area get echo. Pending Hypertension Hyperlipidemia Hypothyroidism Chronic kidney disease stage 3 Code status full code DVT prophylaxis heparin GTT Subjective Date/time seen: 10/03/24 13:50 Interval history: No new complaints. No chest pain or shortness of breath. Remains on IV heparin. Review of Systems Review of Systems: All systems reviewed & are unremarkable except as noted in HPI and below Exam Narrative: General: Well-developed male sitting up in bed in no acute distress. HEENT: PERRL, EOMI. Sclera anicteric. Oral mucosa moist. Oropharynx clear. Neck: Supple. Respiratory: Lungs are clear to auscultation bilaterally. Cardiovascular: Regular rate and rhythm with S1-S2. Aortic area with systolic murmur Chest: No tenderness to palpation over the chest wall. Gastrointestinal: Abdomen is soft, obese, nontender, and nondistended with positive bowel sounds. Skin: Warm and dry. No rash or lesions on limited exam. Extremities: No cyanosis, clubbing, or edema. Radial and pedal pulses intact. No palpable knots or cords. Neurological: Alert. Cranial nerves 2-12 are grossly intact. No gross focal deficits to casual conversation. Psychiatric: Pleasant and cooperative with normal mood and affect. Judgment and insight intact. Objective Data Vital Signs Vital Signs: Vital Signs - 24 hr 10/02/24 14:00 10/02/24 14:00 10/02/24 14:15 Temperature Pulse Rate 65 62 Pulse Rate [Right Radial] 65 Respiratory Rate 14 14 Blood Pressure 132/82 125/82 Pulse Oximetry 93 93 Oxygen Delivery Room Air Room Air 10/02/24 14:15 10/02/24 14:30 10/02/24 14:30 Temperature Pulse Rate 64 Pulse Rate [Right Radial] 65 62 Respiratory Rate 15 Blood Pressure 137/79 Pulse Oximetry 93 Oxygen Delivery Room Air 10/02/24 14:45 10/02/24 14:45 10/02/24 15:00 Temperature Pulse Rate 68 68 Pulse Rate [Right Radial] 68 Respiratory Rate 16 16 Blood Pressure 128/67 137/76 Pulse Oximetry 93 94 Oxygen Delivery Room Air Room Air 10/02/24 15:00 10/02/24 15:15 10/02/24 15:15 Temperature Pulse Rate 71 Pulse Rate [Right Radial] 61 71 Respiratory Rate 16 Blood Pressure 132/92 H Pulse Oximetry 93 Oxygen Delivery Room Air 10/02/24 15:30 10/02/24 15:30 10/02/24 15:45 Temperature Pulse Rate 63 65 Pulse Rate [Right Radial] 69 Respiratory Rate 13 15 Blood Pressure 139/88 132/80 Pulse Oximetry 94 94 Oxygen Delivery Room Air Room Air 10/02/24 15:45 10/02/24 16:00 10/02/24 16:00 Temperature Pulse Rate 65 Pulse Rate [Right Radial] 66 65 Respiratory Rate 14 Blood Pressure 131/74 Pulse Oximetry 93 Oxygen Delivery Room Air 10/02/24 16:30 10/02/24 16:30 10/02/24 17:00 Temperature Pulse Rate 70 68 Pulse Rate [Right Radial] 70 Respiratory Rate 17 Blood Pressure 132/79 141/75 H Pulse Oximetry 93 96 Oxygen Delivery Room Air 10/02/24 17:30 10/02/24 18:00 10/02/24 18:30 Temperature Pulse Rate 68 70 73 Pulse Rate [Right Radial] Respiratory Rate Blood Pressure 128/72 124/84 Pulse Oximetry 98 95 Oxygen Delivery 10/02/24 19:30 10/02/24 20:00 10/02/24 20:00 Temperature 97.4 F L Pulse Rate 74 71 Pulse Rate [Right Radial] Respiratory Rate 18 Blood Pressure 141/84 H Pulse Oximetry 97 95 Oxygen Delivery Room Air 10/02/24 20:00 10/02/24 23:46 10/03/24 00:00 Temperature 97.6 F 97.3 F L Pulse Rate 66 75 Pulse Rate [Right Radial] Respiratory Rate 16 20 Blood Pressure 121/73 127/74 Pulse Oximetry 98 98 97 Oxygen Delivery Room Air 10/03/24 00:00 10/03/24 04:00 10/03/24 04:00 Temperature 98.1 F Pulse Rate 61 74 Pulse Rate [Right Radial] Respiratory Rate 18 Blood Pressure 117/70 Pulse Oximetry 98 100 Oxygen Delivery Room Air 10/03/24 08:00 10/03/24 08:00 10/03/24 10:00 Temperature 97.6 F Pulse Rate 80 77 71 Pulse Rate [Right Radial] Respiratory Rate 18 Blood Pressure 122/66 Pulse Oximetry 96 Oxygen Delivery 10/03/24 11:37 10/03/24 12:00 Temperature 98.3 F Pulse Rate 75 Pulse Rate [Right Radial] Respiratory Rate 14 Blood Pressure 149/75 H Pulse Oximetry 96 Oxygen Delivery Room Air Intake/Output Intake/Output: Intake & Output 09/30/24 10/01/24 10/02/24 10/03/24 23:59 23:59 23:59 23:59 Intake Total 240 1431.2 878.2 Output Total 100 1550 750 Balance 140 -118.8 128.2 Meds/Results Medications: Active Medications Generic Name Dose Route Start Last Admin Trade Name Freq PRN Reason Stop Dose Admin Acetaminophen 650 mg 10/01/24 15:12 Acetaminophen 325 Mg Tablet PO Q4H PRN Mild Pain (1-3) or Fever Aspirin 81 mg 10/02/24 09:00 10/03/24 09:40 Aspirin 81 Mg Enteric Tablet PO 81 mg DAILY [facility] Administration Atorvastatin Calcium 80 mg 10/03/24 09:00 10/03/24 09:39 Atorvastatin 40 Mg Tablet PO 80 mg DAILY [facility] Administration Heparin Sodium (Porcine) 4,000 units 10/02/24 09:27 Heparin Sodium 5,000 Units/Ml Vial IV PUSH PRN PRN aPTT less than 55 seconds Heparin Sodium (Porcine) 3,500 units 10/02/24 09:27 10/03/24 05:37 Heparin Sodium 5,000 Units/Ml Vial IV PUSH 3,500 units PRN PRN Administration aPTT 55 - 70 seconds Hydrochlorothiazide 12.5 mg 10/02/24 09:00 10/03/24 09:39 Hydrochlorothiazide 12.5 Mg Capsule PO 12.5 mg DAILY [facility] Administration Heparin Sodium/Dextrose 25,000 units in 250 mls @ 12 mls/hr 10/02/24 10:00 10/03/24 12:27 Heparin Sodium/D5w 100 Units/Ml IV CONT 1,200 units/hr .[id number] [facility] 12 mls/hr Titration Protocol 1,200 UNITS/HR Levothyroxine Sodium 112 mcg 10/02/24 09:00 10/03/24 05:33 Levothyroxine Sodium 112 Mcg Tablet PO 112 mcg DAILY@0630 [facility] Administration Lisinopril 20 mg 10/02/24 09:00 10/03/24 09:40 Lisinopril 20 Mg Tablet PO 20 mg DAILY [facility] Administration Morphine Sulfate 2 mg 10/01/24 20:37 Morphine Sulfate (*Crx) 2 Mg/Ml Inj IV PUSH Q4H PRN Pain Rated 7-10 Perflutren Lipid Microsphere 0 ml 10/01/24 20:37 Perflutren Lipid Microspheres 1.5 Ml Vial Diluted To 10 Ml Total Volume IV PUSH 10/04/24 20:37 ONCE PRN adequate visualization Protocol Radiology Results: ITS Impressions Chest X-Ray 10/01/24 13:04 IMPRESSION: 1. Airspace opacities in left lower lung zone, consistent with atelectasis versus pneumonia. Labs Labs: Laboratory Results - last 24 hr 10/02/24 10/03/24 10/03/24 22:41 04:34 11:38 WBC 6.4 RBC 4.93 Hgb 14.9 Hct 44.1 MCV 89.5 MCH 30.2 MCHC 33.8 RDW 13.0 Plt Count 168 MPV 10.1 Immature Gran % (Auto) 0.3 Neut % (Auto) 63.2 Lymph % (Auto) 24.5 [place] % (Auto) 7.4 Eos % (Auto) 3.5 Baso % (Auto) 1.1 Lymph # (Auto) 1.56 [place] # (Auto) 0.5 Eos # (Auto) 0.2 Baso # (Auto) 0.1 Abs Immat Gran (auto) 0.02 Absolute Neuts (auto) 4.0 Absolute Nucleated RBC 0.000 Nucleated RBC % 0.0 APTT 91.7 H 66.5 H 99.5 H Sodium 139 Potassium 4.1 Chloride 104 Carbon Dioxide 25 Anion Gap 10 BUN 17 Creatinine 1.05 Estim Creat Clear Calc 65 Estimated GFR > 60 Glucose 96 Calcium 9.1 Magnesium 1.9 Total Bilirubin 1.0 AST 23 ALT 19 Alkaline Phosphatase 84 Total Protein 7.0 Albumin 4.2
--- NOTE | 2024-10-03 15:05 | PC.NURSE ---
On 10/03/24, the student, [Nurys Garzon ], provided care and completed [facility] documentation on this patient. I have reviewed the student's documentation and agree with the findings.
--- NOTE | 2024-10-03 16:00 | P.TS_ITS ---
Transfer Discharge Sum: Prov Provider Date of admission: 10/03/24 10:28 Primary care physician: Jj Collins APRN Admitting clinician: Anjel Hood MD Consults: 10/01/24 15:13 Consult to Physician Routine Comment: Consulting Provider: Wily [place]ri[place] development advisor/MD group to consult: Cardiology Reason for consultation: Exertional angina Has provider been notified: Yes DS: Admitting Diagnosis Discharge Date 10/03/2024 Admitting Diagnosis Chest pain DS: Discharge Diagnosis Discharge Diagnosis (1) Exertional chest pain: Code(s): R07.9 - Chest pain, unspecified Status: Acute (2) Hypertension: Qualifiers: Hypertension type: primary hypertension Qualified Code(s): I10 - Essential (primary) hypertension Code(s): I10 - Essential (primary) hypertension Status: Acute (3) Hyperlipidemia: Qualifiers: Hyperlipidemia type: other hyperlipidemia Qualified Code(s): E78.49 - Other hyperlipidemia Code(s): E78.5 - Hyperlipidemia, unspecified Status: Acute (4) Hypothyroidism: Qualifiers: Hypothyroidism type: acquired Qualified Code(s): E03.9 - Hypothyroidism, unspecified Code(s): E03.9 - Hypothyroidism, unspecified Status: Acute (5) Chronic kidney disease, stage 3: Code(s): N18.30 - Chronic kidney disease, stage 3 unspecified Status: Acute Transfer Discharge Sum: Med Medications Active and Home Medications: Home Medications aspirin 81 mg tablet,delayed release (Aspir-) 81 mg PO DAILY 09/05/19 [History Confirmed 10/01/24] atorvastatin 20 mg tablet 20 mg PO DAILY #90 tabs 04/20/24 [Rx Confirmed 10/01/24] levothyroxine 112 mcg tablet 112 mcg PO DAILY #90 tabs 07/14/24 [Rx Confirmed 10/01/24] lisinopril 20 mg-hydrochlorothiazide 12.5 mg tablet 1 tablet PO DAILY #90 tabs 07/14/24 [Rx Confirmed 10/01/24] Active Medications Acetaminophen (Acetaminophen 325 Mg Tablet) 650 mg PO Q4H PRN PRN Reason: Mild Pain (1-3) or Fever Aspirin (Aspirin 81 Mg Enteric Tablet) 81 mg PO DAILY [facility] Last Admin: 10/03/24 09:40 Dose: 81 mg Atorvastatin Calcium (Atorvastatin 40 Mg Tablet) 80 mg PO DAILY [facility] Last Admin: 10/03/24 09:39 Dose: 80 mg Heparin Sodium (Porcine) (Heparin Sodium 5,000 Units/Ml Vial) 4,000 units IV PUSH PRN PRN PRN Reason: aPTT less than 55 seconds Heparin Sodium (Porcine) (Heparin Sodium 5,000 Units/Ml Vial) 3,500 units IV PUSH PRN PRN PRN Reason: aPTT 55 - 70 seconds Last Admin: 10/03/24 05:37 Dose: 3,500 units Hydrochlorothiazide (Hydrochlorothiazide 12.5 Mg Capsule) 12.5 mg PO DAILY [facility] Last Admin: 10/03/24 09:39 Dose: 12.5 mg Heparin Sodium/Dextrose (Heparin Sodium/D5w 100 Units/Ml) 25,000 units in 250 mls @ 12 mls/hr IV CONT .[id number] [facility]; Protocol Last Titration: 10/03/24 12:27 Dose: 1,200 units/hr, 12 mls/hr Levothyroxine Sodium (Levothyroxine Sodium 112 Mcg Tablet) 112 mcg PO DAILY@0630 [facility] Last Admin: 10/03/24 05:33 Dose: 112 mcg Lisinopril (Lisinopril 20 Mg Tablet) 20 mg PO DAILY [facility] Last Admin: 10/03/24 09:40 Dose: 20 mg Morphine Sulfate (Morphine Sulfate (*Crx) 2 Mg/Ml Inj) 2 mg IV PUSH Q4H PRN PRN Reason: Pain Rated 7-10 Perflutren Lipid Microsphere (Perflutren Lipid Microspheres 1.5 Ml Vial Diluted To 10 Ml Total Volume) 0 ml IV PUSH ONCE PRN; Protocol PRN Reason: adequate visualization Stop: 10/04/24 20:37 Transfer Discharge Sum: Hosp Hospital Course Hospital course: Yonis Gant Jr. is a 79 year old male with history of hypertension, hyperlipidemia, chronic kidney disease stage 3, benign prostatic hyperplasia, hypothyroidism, and kidney stones who presented to the emergency department via private vehicle for evaluation of chest pain. He gives a 3 history of exertional chest pain, describing a nonradiating pressure-like discomfort in the substernal region with activity. For example, the chest discomfort occurred while he was shoveling and working out in his garage. The pain resolves within a short period of time after he stops to rest. He denies associated lightheadedness, dizziness, sweats, nausea, and vomiting. He had a stress test done several years ago which was unremarkable and he has no known history of coronary disease. At the time my evaluation he is without discomfort and has no complaints. He denies recent cold and flu symptoms, pleuritic pain, orthopnea, lower extremity edema, calf pain, bloating, belching, and abdominal pain. In the ED: Vital signs were stable on arrival. CMP and CBC were pretty unremarkable on arrival and his creatinine is stable compared to previous labs. Chest x-ray with airspace opacities in the left lung zone consistent with atelectasis versus pneumonia. Influenza RSV COVID swab was negative. Initial troponin was less than 0.012. EKG showed sinus tachycardia with a rate of 106 and frequent PVCs in a bigeminal pattern and incomplete right bundle-branch block. EKG with no acute ST-T changes. He was given aspirin 324 mg and is being admitted in this setting for close monitoring and Cardiology consultation. Exertional chest pain initial troponin negative however subsequent increase to 0.073. Suggestive of non ST elevation [place]. received aspirin 324 mg x 1 followed by aspirin 81 mg daily. Already on atorvastatin 20 mg daily. LDL is 68. Increase atorvastatin to 80 mg daily. Heparin drip has been started. Status post cardiac catheterization 10/02/2024: Obstructive triple-vessel disease with 70% stenosis of distal RCA prior to large bifurcation, 60-70% stenosis of ostial left main, 90% stenosis of mid LAD. Plan for CT surgery consultation and awaiting transfer to [place] [facility]. Bed was available on 10/03/2024 and is getting transferred for further treatment Systolic murmur in aortic area get echo Pending at the time of transfer Hypertension Hyperlipidemia Hypothyroidism Chronic kidney disease stage 3 Code status full code DVT prophylaxis heparin GTT Time Spent with Patient Time attestation: Total time spent providing and/or coordinating transfer services: 35 minutes Exam Narrative: General: Well-developed male sitting up in bed in no acute distress. HEENT: PERRL, EOMI. Sclera anicteric. Oral mucosa moist. Oropharynx clear. Neck: Supple. Respiratory: Lungs are clear to auscultation bilaterally. Cardiovascular: Regular rate and rhythm with S1-S2. Aortic area with systolic murmur Chest: No tenderness to palpation over the chest wall. Gastrointestinal: Abdomen is soft, obese, nontender, and nondistended with positive bowel sounds. Skin: Warm and dry. No rash or lesions on limited exam. Extremities: No cyanosis, clubbing, or edema. Radial and pedal pulses intact. No palpable knots or cords. Neurological: Alert. Cranial nerves 2-12 are grossly intact. No gross focal deficits to casual conversation. Psychiatric: Pleasant and cooperative with normal mood and affect. Judgment and insight intact. DS: Data Data Completed and Pending Labs on day of discharge: Labs from last 24 hours 10/03/24 10/03/24 10/02/24 11:38 04:34 22:41 WBC 6.4 RBC 4.93 Hgb 14.9 Hct 44.1 MCV 89.5 MCH 30.2 MCHC 33.8 RDW 13.0 Plt Count 168 MPV 10.1 Immature Gran % (Auto) 0.3 Neut % (Auto) 63.2 Lymph % (Auto) 24.5 [place] % (Auto) 7.4 Eos % (Auto) 3.5 Baso % (Auto) 1.1 Lymph # (Auto) 1.56 [place] # (Auto) 0.5 Eos # (Auto) 0.2 Baso # (Auto) 0.1 Abs Immat Gran (auto) 0.02 Absolute Neuts (auto) 4.0 Absolute Nucleated RBC 0.000 Nucleated RBC % 0.0 APTT 99.5 H 66.5 H 91.7 H Sodium 139 Potassium 4.1 Chloride 104 Carbon Dioxide 25 Anion Gap 10 BUN 17 Creatinine 1.05 Estim Creat Clear Calc 65 Estimated GFR > 60 Glucose 96 Calcium 9.1 Magnesium 1.9 Total Bilirubin 1.0 AST 23 ALT 19 Alkaline Phosphatase 84 Total Protein 7.0 Albumin 4.2 Procedures/Treatments: Cardiac Cath Procedure Note Date of procedure:: 10/02/24 Performing physician:: Britney Lucia MD Indication:: NSTEMI Brief clinical history:: 79 y/o male patient presented with chest pain and noted to have elevated troponin. He was given asa, started on heparin drip and scheduled for cardiac catheterization for further evaluation. Procedure Procedure performed:: Radial access Selective right and left coronary angiogram Sedation/Medication given:: Versed 1 mg Fentanyl 100 mcg Case start time: 12:24 p.m. Case end time 1:00 p.m. Access site:: Right radial artery Estimated blood loss:: 20cc Procedure note:: Patient is brought to the cardiac dental laboratory technology teacher for angiogram and possible intervention. The risks, benefits, alternatives, and possible complications of this procedure was discussed, understood and accepted by the patient. Moderate sedation: I administered moderate sedation throughout the procedure. An independent trained provider pushed medications at my discretion and monitored the patient's level of consciousness and physiological status throughout under my supervision. [id number] time was provided for the entire procedure. Please refer to electronic medical record for total sedation doses provided. Intra service time: 36 minutes Hemodynamic data: Opening aortic pressure was 102/80/92 mm Hg. LVEDP was not performed. Catheters used for selective coronary angiograms: Six Faroese JL 3.5 Six Faroese JR4 Findings:: 1. The left main coronary artery arises from the left coronary cusp and divides into the left anterior descending and left circumflex. There is 60-70% ostial left main stenosis with dampening of blood pressure with engagement of left main. 100 mcg of intracoronary nitroglycerin was administered and repeat angiography was performed and showed 60% stenosis of ostial left main. 2. The left anterior descending artery arises from the left main and gives off 2 big diagnosis and septal perforators before wrapping around the LV apex. There is 90% stenosis in the mid LAD before the takeoff of a large diagonal. This is the culprit lesion. 3. The left circumflex artery arises from the left main and is a large sized anatomically nondominant artery. It is free of angiographic disease. 4. The right coronary artery arises from the right coronary cusp and gives off PDA and PLV branch. It is anatomically dominant. It has 70% stenosis in the distal RCA prior to bifurcation of PDA and PL. Conclusion:: 1. NSTEMI 2. Obstructive triple-vessel disease with 70% stenosis of distal RCA prior to large bifurcation, 60-70% stenosis of ostial left main, 90% stenosis of mid LAD. Imaging Radiologist's impression: ITS Impressions Chest X-Ray 10/01/24 13:04 IMPRESSION: 1. Airspace opacities in left lower lung zone, consistent with atelectasis versus pneumonia.
[2024-10-03 18:43] LABS: Partial Thromboplastin Time 78.7 Seconds (22.3-36.8)
--- NOTE | 2024-10-03 18:57 | PC.NURSE ---
Pt transfer to [facility] room 904-1. Pt on phone with at time of transfer, and she has been notified of pt leaving facility. Heparin gtt infusing. Report given to WADE Liu @ [phone]. Belongings sent home with, Beatriz, , yesterday. Phone and glasses sent with pt.
--- NOTE | 2024-10-03 20:37 | ECHO_ITS ---
Patient Info Name: Yonis Gant Age: 79 years : 1945 Gender: Male Ht: 72 in Wt: 255 lbs BSA: 2.46 m2 HR: 74 bpm BP: 117 / 70 mmHg Heart Rhythm: Sinus Rhythm Exam Date: 10/03/2024 8:42 AM Exam Location: Echo Lab Patient Status: Inpatient Admit Date: 10/03/2024 Staff Ordering Physician: Summer Mccabe PA-C Real Estate Transaction Manager: Miguel Curiel RDCS Attending Provider: Anjel Hood MD Referring Physician: Estelle RODRIGUEZ; Exam Type: CA echo doppler color flow Study Info Indications - CHEST PAIN - HTN Complete two-dimensional, color flow and Doppler transthoracic echocardiogram is performed. Summary 1. Complete two-dimensional, color flow and Doppler transthoracic echocardiogram is performed. 2. Technically challenging echocardiogram. 3. Normal appearing left ventricular size with grossly normal systolic function and grade 1 diastolic noncompliance. 4. Trileaflet aortic valve which appears to be mildly to moderately stenotic. 5. Doppler interrogation of the stenotic aortic valve was not performed successfully. As such aortic valve area cannot be estimated. Left Ventricle Left ventricular chamber dimension is normal. Left ventricular systolic function is normal, estimated at 50-55%. There is mild concentric increased left ventricular wall thickness. The left ventricular diastolic function is grade I diastolic dysfunction. Right Ventricle Right ventricular chamber dimension is normal. Left Atria Left atrial chamber dimension is mildly enlarged. Right Atria Right atrial chamber dimension is not well visualized. Aortic Valve The aortic valve is trileaflet. There is moderate aortic valve sclerosis. There is mild to moderate aortic valve stenosis. Pulmonic Valve The pulmonic valve is not well visualized. Mitral Valve The mitral valve has normal leaflets. The mitral valve annulus is mildly calcified. Tricuspid Valve The tricuspid valve leaflets are normal. Pericardium/Pleural The pericardium appears normal. Aorta The aortic root size at the sinus of Valsalva is normal. Report Signatures
== END 2024-10-03 19:00 | disposition short-term general hospital (02) | DRG 282 ==
LOC: ANHED 14:40 → ANHIMU 15:51
PROVIDERS: Emergency Medicine; Internal Medicine Cardiovascular Disease; Internal Medicine Interventional Cardiology; Nurse Practitioner; Physician Assistant; Admitting Provider Internal Medicine; Emergency Provider Emergency Medicine; PCP Nurse Practitioner; Visit Provider Internal Medicine
PROC: 4A023N7 Measurement of Cardiac Sampling and Pressure, Left Heart, Percutaneous Approach (ICD-10-PCS; CPT 93454; principal; 2024-10-02 14:30)
DX: I21.4 Non-ST elevation (NSTEMI) myocardial infarction (principal); R01.1 Cardiac murmur, unspecified; I12.9 Hypertensive chronic kidney disease with stage 1 through stage 4 chronic kidney disease, or unspecified chronic kidney disease; N18.30 Chronic kidney disease, stage 3 unspecified; E78.5 Hyperlipidemia, unspecified; E03.9 Hypothyroidism, unspecified; N40.0 Benign prostatic hyperplasia without lower urinary tract symptoms
CPT/HCPCS: 36415; 71046; 80048; 80053; 80061; 83690; 83735; 83880; 84439; 84443; 84480; 84484; 85025; 85027; 85610; 85730; 87637; 93005; 93306; 93454; 99285; A9270; C1769; C1887; C1894; G0378; J1644; J2003; J2250; J2305; J3010; J7030; J7040

== ENCOUNTER 2024-11-29 09:41 | Emergency (ER) | payer MEDICARE, SELFPAY ==
--- NOTE | ~2024-11-29 | XR_ITS ---
XR chest 1V portable 11/29/2024 09:59 Indication: Shortness of breath Procedure: AP portable chest Comparison: 10/01/2024 Findings: Status post median sternotomy for CABG. Cardiomegaly. Left basilar infiltrates are present with tenting of the diaphragm. Pacemaker expected position. No significant effusion or pneumothorax. There is a prosthetic heart valve. Impression: 1: Left basilar infiltrates may represent atelectasis or developing pneumonia. 2: Cardiomegaly. Reviewed, dictated and finalized at location A. Impression: 1: Left basilar infiltrates may represent atelectasis or developing pneumonia. 2: Cardiomegaly.
[2024-11-29 09:46] VITALS: BP 177/94; PULSE 89; RESP 30; TEMP 36.3; O2SAT 94
--- NOTE | 2024-11-29 09:46 | ECG_ITS ---
Test Date: 2024-11-29 09:58:40 Measurements Intervals [place] Rate: 85 P: 0 NC: 0 QRS: 113 QRSD: 168 T: -24 QT: 417 QTc: 498 Interpretive Statements SINUS RHYTHM RIGHT AXIS DEVIATION LEFT BUNDLE BRANCH BLOCK BASELINE ARTIFACT- I, II, III, AVR, AVL, AVF, V4-V6 ABNORMAL ECG Compared to ECG 10/01/2024 15:22:52 LEFT BUNDLE BRANCH BLOCK NOW PRESENT Electronically Signed On 11-29-2024 10:02:07 CDT by Art Herman D.O.
--- NOTE | 2024-11-29 09:53 | ED_ITS ---
HPI - SOB/Dyspnea General Chief Complaint: Shortness of Breath/Dyspnea Stated Complaint: SOB Time Seen by Provider: 11/29/24 09:53 Source: patient, family and EMS Limitations: no limitations History of Present Illness HPI Narrative: 79 years old white male came to the ED from home by ambulance because sudden onset of shortness of breath. Patient denies any fever, chills, nausea, vomiting, chest pain or back pain or focal neuro deficit. Patient is telling me that he was sitting looking for his medical card who could not find, got very aggravated and triggered what he believe panic attack. On arrival to the ED patient feeling great and asymptomatic. BiPAP was placed on the patient in the way to the emergency room. History of hypertension hyperlipidemia hypothyroidism CABG pacemaker currently on baby aspirin once a day. Patient takes his medication normally at noon. Related Data Home Medications ?Medication ?Instructions ?Recorded ?Confirmed ?Last Taken ?Type aspirin 81 mg tablet,delayed 81 mg PO DAILY 09/05/19 10/01/24 09/30/24 History release (Aspir-) Allergies Allergy/AdvReac Type Severity Reaction Status Date / Time No Known Allergies Allergy Verified 11/29/24 10:22 Review of Systems Review of Systems: All systems reviewed & are unremarkable except as noted in HPI and below PMFSH Past Medical History Medical History Benign prostatic hyperplasia Hyperlipidemia Chronic kidney disease, stage 3 Hypertension Surgical History Surgical History History of testicular mass excision Family History Family History Father Alcoholic cirrhosis Mother Brain cancer Sibling addiction Acute myocardial infarction Brain cancer Exposure to Agent [place] Social History Social History Social History: Surrogate medical decision maker: Noemy Stalin, spouse. Code status: Full code. Smoking status: Never smoker Second hand tobacco smoke exposure: No Alcohol intake: current Alcohol use details: 4 beer every month Substance use: never Substance use type: does not use Do You Feel Safe in your Home?: Yes Lack of Transportation: No Lack of Food: Never True Current Housing: I Have Housing Concerned About Future Housing: No Difficulty Paying Gas/Electric Bills: No Difficulty Paying for Meds: No Currently Unemployed: No Education: High School Diploma/GED Difficulty w/ Childcare or Family Care: No Living arrangements: with family Occupation/Education: retired Additional occupation/education comments: [employer] Spiritual care concerns: No Exam Narrative: General appearance: Well-developed, well-nourished Skin: Normal color Head: Normocephalic, nontraumatic Eyes: Clear conjunctiva ENT: Oropharynx normal, ears normal, nose normal Neck: Supple, nontender Chest and respiratory: Airway patent, no respiratory distress, no accessory muscle use Heart: Regular rate/rhythm Abdomen: Soft, nontender, no organomegaly, quiet bowel sounds Vascular: Normal peripheral pulses, normal capillary refill. Musculoskeletal: Normal range of motion, nontender back Neurologic: Alert and oriented ?3, [employer] is normal as tested, no gross motor deficit Course Vital Signs Vital signs: Vital Signs Temperature 36.3 C L 11/29/24 09:46 Pulse Rate 89 11/29/24 09:46 Respiratory Rate 30 H 11/29/24 09:46 Blood Pressure 177/94 H 11/29/24 09:46 Pulse Oximetry 94 11/29/24 09:46 Oxygen Delivery Room Air 11/29/24 09:46 Temperature 36.3 C L 11/29/24 09:46 Pulse Rate 89 11/29/24 09:46 Respiratory Rate 30 H 11/29/24 09:46 Blood Pressure 177/94 H 11/29/24 09:46 Pulse Oximetry 94 11/29/24 09:46 Oxygen Delivery Room Air 11/29/24 09:46 MDM - SOB/Dyspnea MDM Narrative Medical decision making narrative: Patient came with sudden onset of shortness of breath after got aggravated of losing his medical card Vital signs showing blood pressure 177/94, respiratory rate 30, oxygen saturation on room air 94% pain. Physical examination showing a patient on BiPAP, is telling me that he feeling much better and his shortness of breath because he was agitated and got panicky at that time Blood workup includes CBC, CMP, troponin showed pro BNP 791 otherwise within normal limit Chest x-ray showed atelectasis versus developing pneumonia. Patient denies any coughing, normal white count, normal WBC. Atelectasis more likely EKG on arrival showed normal sinus rhythm at 85 beats per minute, left bundle- branch block, right axis deviation, abnormal EKG BiPAP was removed within 3-5 minutes after arrival to the ED, patient is feeling much better, currently is asymptomatic and would like to go home as soon as possible to mow the grass. Patient is telling me that he had a lot of yd work yesterday, including mowing grass. Diagnosis anxiety like symptoms The pt was discharged to home.the pt,s condition upon discharge was fair,education was provided to the pt in reference to the final impression,discharge study results,treatment,prognosis and need for follow up . Discharge Plan Discharge Clinical Impression: Anxiety Patient Disposition: Home Condition: Stable Instructions: Anxiety (ED) Additional Instructions: Return if symptoms are worsening , call your family physician for appointment, take Tylenol as as needed for aches and pain, continue home medications. Patient Language: [place] Prescriptions: No Action aspirin [Aspir-81] 81 mg tablet,delayed release (DR/EC) 81 mg PO DAILY levothyroxine 112 mcg tablet 112 mcg PO DAILY Qty: 90 3RF lisinopril-hydrochlorothiazide 20-12.5 mg tablet 1 tablet PO DAILY Qty: 90 3RF atorvastatin 20 mg tablet 20 mg PO DAILY Qty: 90 3RF Follow-up/Referrals: Jj Collins, RIGOBERTO [Primary Care Provider] -
[2024-11-29 10:08] LABS: Basophils Absolute Auto 0.1 K/mm3 (0.0-0.1); Basophils Percent Auto 1.5 % (0.2-1.2); Eosinophils Absolute Auto 0.2 K/mm3 (0-0.3); Eosinophils Percent Auto 4.2 % (0-4.4); Hemoglobin 11.9 g/dL (14.0-18.0); Immature Granulocyte Absolute 0.02 K/mm3 (0.00-0.031); Immature Granulocyte Percent A 0.4 % (0-0.5); Lymphocytes Absolute Auto 1.34 K/mm3 (0.9-3.2); Lymphocytes Percent Auto 25.5 % (18.3-44.2); Mean Corpuscular HGB Conc 31.3 g/dl (32-36); Mean Corpuscular Hemoglobin 29.8 pg (26-34); Mean Corpuscular Volume 95.2 fl (80-100); Mean Platelet Volume 10.2 fl (7.4-10.4); Monocytes Absolute Auto 0.5 K/mm3 (0.1-0.6); Monocytes Percent Auto 8.8 % (2.6-8.5); Neutrophils Absolute Auto 3.1 K/mm3 (1.3-6.7); Neutrophils Percent Auto 59.6 % (45.5-73.1); Platelet Count Result 190 k/mm3 (150-375); Red Blood Count 3.99 M/mm3 (4.6-6.20); Red Cell Distribution Width 15.6 % (11.5-14.5); White Blood Count 5.3 K/mm3 (4.5-10.0)
[2024-11-29 10:16] LABS: Prothrombin Time 13.7 Seconds (11.1-14.7)
[2024-11-29 10:17] LABS: Partial Thromboplastin Time 28.1 Seconds (22.3-36.8)
[2024-11-29 10:21] VITALS: PULSE 79; O2SAT 99
[2024-11-29 10:21] LABS: Alanine Aminotransferase 25 U/L (6-50); Albumin Level 4.2 g/dL (3.5-5.1); Alkaline Phosphatase 123 U/L (38-126); Anion Gap 6 mmol/L (4-12); Aspartate Amino Transferase 30 U/L (17-59); Bilirubin,Total 0.9 mg/dL (0.2-1.3); Blood Urea Nitrogen 17 mg/dL (9-20); Calcium 8.9 mg/dL (8.4-10.2); Carbon Dioxide 30 mmol/L (22-30); Chloride 103 mmol/L (98-107); Estimated CRCL calculation 52 ml/min; Estimated Glomerular Filt Rate 51; Glucose 106 mg/dL (65-110); Potassium 4.5 mmol/L (3.4-5.0); Sodium 139 mmol/L (137-145)
--- NOTE | 2024-11-29 10:23 | PC.NURSE ---
pt was taken back to room 5 from triage. pt in respiratory distress, placed on Bipap. pt states he is feeling significantly better after Bipap. Dr. Encarnacion at bedside and states to take pt off of Bipap and obtain ABG. pt is currently sating 100% on room air at this time. ED Respiratory at bedside obtaining ABG.
[2024-11-29 10:25] VITALS: BP 135/86; PULSE 81; RESP 25; O2SAT 99
[2024-11-29 10:26] VITALS: O2SAT 99
[2024-11-29 10:32] LABS: NT Pro B Type Natriuretic Pept 791 pg/mL (19.9-100); Troponin I < 0.012 ng/mL (0.000-0.034)
[2024-11-29 10:33] LABS: Base Excess ABG 0.7 mEq/l (+/-2.0); Fractional Inspired Oxygen 21 %; HCO3 ABG 27.5 mEq/l (22.0-26.0); PCO2 ABG 53.7 mmHg (35.0-45.0); Total Hemoglobin 12.5 g/dL (12.0-18.0); pH ABG 7.327 (7.350-7.450)
[2024-11-29 10:44] LABS: PO2 ABG < 27.0 mmHg (80.0-100.0)
[2024-11-29 10:45] LABS: Device ROOM AIR; Modified Allen's Test Pass; Oxyhemoglobin 33.4 % THb (90.0-100.0); Site Drawn RIGHT RADIAL
--- OUTSIDE RECORDS SUMMARY | 2024-11-29 10:49 | XMS_ITS | Referral Summary ---
Author Organization [facility] Address [address] [place] [address] Care Team Providers Care Event Specialist Food Demonstrator Name Role Phone Jj Collins NP Primary Care Provider [phone] Encounters Date Type Department Care Team Description 5 3:00 PM CDT Home Care Visit [address] [address] [address] [place] [address] Tamara Key RN SN OASIS DISCHARGE 5 11:30 AM CDT Office Visit [facility] Surgery [id number] [place] [address] [address] [place] [address] Reina Duffy NP S/P AVR (aortic valve replacement) (Primary Dx); Coronary artery disease involving nulato coronary artery of nulato heart without angina pectoris; Nonrheumatic aortic valve stenosis 5 Telephone [facility] [address] [place] [address] [place] [phone] Lakeshia Aviles NP 5 8:30 AM CDT Ancillary Procedure [facility] [address] [place] [address] 162 [address] [place] [address] Cardiac pacemaker in situ; Atrial fibrillation, unspecified type (HCC); Bradycardia; Tachy-thomas syndrome (HCC) 5 Telephone [facility] [address] [facility] [address] [place] [phone] Remberto Cerda MD 5 1:00 PM CDT Home Care Visit [address] [place] [address] Tamara Key RN SN HOME VISIT 5 11:00 AM CDT Home Care Visit [address] [place] [address] Tamara Key RN SN HOME VISIT 5 1:00 PM CDT Home Care Visit [address] [place] [address] Tamara Key RN SN HOME VISIT 5 12:00 PM CDT Home Care Visit [address] [place] [address] Tamara Sandoval LPN SN HOME VISIT 5 12:00 PM CDT Home Care Visit [address] [place] [address] Tamara Key RN SN HOME VISIT 5 Orders Only [facility] [address] [facility] [address], [place] [phone] Remberto Cerda MD Cardiac pacemaker in situ (Primary Dx); Atrial fibrillation, unspecified type (HCC); Bradycardia; Tachy-thomas syndrome (HCC) 5 Orders Only [employer] [address] [facility] [address] [place] [address] Monet Vo MA Sinus bradycardia (Primary Dx); Cardiac pacemaker in situ 5 Home Care Visit [address] [place] [address] Tamara Key RN CARE CONFERENCE 5 Telephone Cardiology Flaca Giles DO 5 Orders Only [facility] Surgery [address] [facility] [address] [place] [address] Reina Duffy NP 5 10:34 AM CDT - 5 11:59 PM CDT Hospital Encounter [facility] [address] [place] [address] Discharge Disposition: Discharge to home or self care 5 10:00 AM CDT Home Care Visit [address] [place] [address] Tamara Key RN SN HOME VISIT 5 Plan of Care Documentation [address] [place] [address] 5 1:30 PM CDT Home Care Visit [address] [place] [address] Imani Mcgowan SN OASIS START OF CARE 5 7:35 PM RN QUALITY - 5 12:34 PM CDT Hospital Encounter [address] [address] Fatou Schwartz MD Munfakh, Nabil A., MD Aortic valve stenosis, etiology of cardiac valve disease unspecified (Primary Dx); Coronary artery disease involving nulato coronary artery of nulato heart without angina pectoris; Nonrheumatic aortic valve stenosis; Dark stools Discharge Disposition: Discharge to home, home health skilled care 5 Telephone [facility] [address] [place] [address] Ravin Branham MA 5 2:31 PM RN QUALITY Anesthesia Event [facility] Electrophysiology Lab [address] [place] [address] Royal Sun MD Eldin, Ali S., MD 5 1:30 PM RN QUALITY - 5 3:35 PM RN QUALITY Surgery [facility] [address] [place] [address] Teresa Knox MD INSERT/REPLACE DUAL LEAD PACEMAKER (PPM) OR IMPLANTABLE CARDIOVERTER-DEFIBRI LLATOR (ICD) ELECTRODE WO GENERATOR CHANGE 92116 5 Orders Only [facility] [address] [place] [phone] Sherley Herring, MARY 5 8:00 AM RN QUALITY - 5 1:30 PM RN QUALITY Surgery [facility] Operating Room [id number] [place] [address] Guillermo Mayes MD CORONARY ARTERY BYPASS GRAFT X 3 - INTERNAL MAMMARY/SAPHENOUS VEIN GRAFT - LEG 5 8:04 AM RN QUALITY Anesthesia Event [facility] Operating Room [id number] [place] [address] Williams Carrillo MD Sextro, Alexander Jainism, AA 5 1:55 PM RN QUALITY Anesthesia Event [facility] GI Lab [address] [place] [address] Royal Sun MD O'Brien, Tony Martin, AA 5 2:00 PM RN QUALITY - 5 2:30 PM RN QUALITY Surgery [facility] GI Lab [id number] [place] [address] Flaca Giles DO TRANSESOPHAGEAL ECHOCARDIOGRAM from Last 3 Months Allergies No known active allergies Medications aspirin 81 mg enteric coated tabletIndication s:Myocardial Reinfarction Prevention Take 1 tablet by mouth daily Active levothyroxine (SYNTHROID) 112 mcg tabletIndication s:hypothyroidism Take 1 tablet by mouth optical fabricator before breakfast Active clopidogreL (PLAVIX) 75 mg tabletIndication s:Myocardial Reinfarction Prevention Take 1 tablet (75 mg total) by mouth daily 30 tablet 5 026 Active metoprolol XL (TOPROL-XL) 25 mg extended release tabletIndication s:coronary artery disease Take 1 tablet (25 mg total) by mouth daily 30 tablet 5 026 Active tamsulosin (FLOMAX) 0.4 mg extended release capsuleIndicatio ns:benign prostatic hyperplasia with lower urinary tract sx Take 1 capsule (0.4 mg total) by mouth daily with dinner 30 capsule 2 Active atorvastatin (LIPITOR) 20 mg tabletIndication s:coronary artery disease Take 20 mg by mouth daily. Indications: coronary artery disease Active amiodarone (PACERONE) 400 mg tablet Take 1 tablet (400 mg total) by mouth daily 30 tablet 11 5 025 Discontin ued(Thera py completed ) furosemide (LASIX) 40 mg tablet [The details of the medication are not available because there are pending changes by a home health clinician.] 30 tablet 11 5 025 Discontin ued(Thera py completed ) methocarbamoL (ROBAXIN) 500 mg tablet [The details of the medication are not available because there are pending changes by a home health clinician.] 60 tablet 5 025 Discontin ued(Thera py completed ) oxyCODONE (ROXICODONE) 5 mg immediate release tabletIndication s:Pain [The details of the medication are not available because there are pending changes by a home health clinician.] 21 tablet 5 025 Discontin ued(Thera py completed ) potassium chloride ER (KLOR-CON) 20 mEq CR tablet Take 1 tablet (20 mEq total) by mouth daily for 3 days 3 tablet 5 025 Discontin ued(Thera py completed ) Active Problems Problem Noted Date Diagnosed Date Cardiac pacemaker in situ 10/30/2024 Overview (10/30/2024): Medtronic [place] Dual Pacemaker. Dx; Tachy/Thomas, Afib, Pauses. DOI 10/13/2024- Abilio. Carelink remote. Dark stools 10/16/2024 Coronary artery disease invo lving nulato coronary artery of nulato heart without angina pectoris 10/06/2024 CAD in nulato artery 10/03/2024 Aortic valve stenosis 10/03/2024 Social History Tobacco Use Types Packs/Day Years Used Date Smoking Tobacco: Never Smokeless Tobacco: Never Tobacco Cessation:Counseling Given: Not Answered OASIS D0700: Social Isolation Answer Da te Recorded Frequency of experiencing loneliness or isolatio n Never 11/17/2024 OASIS A1250: Transportation Answer Date Recorded Lack of Transportation (Medical) No 11/17/2024 Lack of Transportation (Non-Medical) No 11/17/2024 Patient Unable or Declines to Respond No 11/17/2024 OASIS B1300: Health Literacy Answer Yvon e Recorded Frequency of needing help to read materials from doctor or pharmacy Never 11/17/2024 [facility] Utilities Answer Date Recorded In the past 12 months has th e electric, gas, oil, or water company threatened to shut off services in your home? No 10/05/2024 Social Connection and Isolat ion Panel [NHANES] Answer Date Recorded In a typical week, how many times do you talk on the phone with family, friends, or neighbors? More than three times a week 10/05/2024 How often do you get togethe r with friends or relatives? More than three times a week 10/05/2024 How often do you attend chur ch or latter day services? Never 10/05/2024 Do you belong to any clubs o r organizations such as buddhist groups, unions, fraternal or athletic groups, or school groups? No 10/05/2024 How often do you attend meet ings of the clubs or organizations you belong to? Never 10/05/2024 Are you , , di vorced, , never , or living with a partner? 10/05/2024 Overall Financial Resource Strain (CARDIA) Answe r Date Recorded How hard is it for you to pa y for the very basics like food, housing, medical care, and heating? Not hard at all 10/05/2024 Hunger Vital Sign Answer Date Recorded Within the past 12 months, y ou worried that your food would run out before you got the money to buy more. Never true 10/05/19 25 Within the past 12 months, t he food you bought just didn't last and you didn't have money to get more. Never true 10/05/2024 PRAPARE - Transportation Answer Date Re corded In the past 12 months, has l ack of transportation kept you from medical appointments or from getting medications? No 09/10 In the past 12 months, has l ack of transportation kept you from meetings, work, or from getting things needed for daily living? No 10/05/2024 Housing Stability Vital Sign Answer Yvon e Recorded In the last 12 months, was t here a time when you were not able to pay the mortgage or rent on time? No 10/05/2024 In the past 12 months, how m any times have you moved where you were living? 0 10/05/2024 At any time in the past 12 m [facility], were you homeless or living in a care home (including now)? No 10/05/2024 Personal Safety Answer Date Recorded Have you ever been in or are you currently in a harmful physical or emotional relationship or is someone making you feel afraid or unsafe? Denies 10/03/2024 Sex and Gender Information Value Date Recorded Sex Assigned at Not on file Legal Sex Male 1:53 PM RN QUALITY Gender Identity Not on file Sexual Orientation Not on file Last Filed Vital Signs Vital Sign Reading Time Taken Comments Blood Pressure 130/80 11/17/2024 4:32 PM CDT Pulse 76 11/17/2024 4:32 PM CDT Temperature 35.9 C (96.7 F) 11/17/2024 4:32 PM CDT Respiratory Rate 20 11/17/2024 4:32 PM CDT Oxygen Saturation 97% 11/17/2024 4:32 PM CDT Inhaled Oxygen Concentration - - Weight 109.8 kg (242 lb) 11/17/2024 4:32 PM CDT Height 182.9 cm (6') 11/16/2024 11:45 AM CDT Body Mass Index 32.82 11/16/2024 11:45 AM CDT Plan of Treatment Not on file Medical Devices Implanted Type Area Post Partum Nurse Device Identifier Shelf Expiration Date Model / Serial / Lot Medtronic Inc Eulalia S Mri Surescan 50.8x46.6mm 2 Chamber 7.4mm Pacemaker 22.5gm [id number] - [id number] - [id number] Implanted:Qty: 1 on 10/13/2024 by Teresa Knox MD at [facility] Pacemaker Left: Chest Wall Medtronic Inc 07/06/2025 [id number] / [id number] / [employer] Valve Coronary Aortic Tissue Bioprosthesis Intuity Elite 25mm [id number] - [id number] - [id number] Implanted:Qty: 1 on 10/09/2024 by Guillermo Mayes MD at [facility] Prosthetic Valve N/A: Heart [employer] 03/02/2025 [id number] / [id number] / Medtronic Inc Capsurefix Novus 6.2fr 2mm 58cm Bipolar Screw In Implantable 5076-58 - [id number] - [id number] Implanted:Qty: 1 on 10/13/2024 by Teresa Knox MD at [facility] Left: Chest Medtronic Inc 07/10/2026 5076-58 / [id number] / Medtronic Inc Capsurefix Novus 6.2fr 2mm 45cm Bipolar Screw In Implantable 5076-45 - [id number] - [id number] Implanted:Qty: 1 on 10/13/2024 by Teresa Knox MD at [facility] Left: Chest Medtronic Inc [id number] 03/24/2026 5076-45 / [id number] 1V / Medtronic Inc Tyrx Absorbable Antibacterial Envelope Med 2.7x2.5in [id number] - [id number] Implanted:Qty: 1 on 10/13/2024 by Teresa Knox MD at [facility] Left: Chest Medtronic Inc 06/29/2025 [id number] / / [id number] Procedures Procedure Name Priority Date/Time Associated Diagnosis Comments DEVICE CHECK - IN OFFICE Routine 11/15/2024 8:03 AM CDT Cardiac pacemaker in situ Atrial fibrillation, unspecified type (HCC) Bradycardia Tachy-thomas syndrome (HCC) EGFR Routine 10/25/2024 10:34 AM CDT DIFFERENTIAL AUTO Routine 10/25/2024 10:34 AM CDT CBC WITH AUTO DIFFERENTIAL Routine 10/25/2024 10:34 AM CDT GLUCOSE, RANDOM (OUTREACH) Routine 10/25/2024 10:34 AM CDT BASIC METABOLIC PANEL WITHOUT GLUCOSE, PLASMA (OUTREACH) Routine 10/25/2024 10:34 AM CDT EGFR Routine 10/21/2024 8:38 AM CDT PHOSPHORUS Routine 10/21/2024 8:38 AM CDT MAGNESIUM Routine 10/21/2024 8:38 AM CDT CBC WITHOUT DIFFERENTIAL Routine 10/21/2024 8:38 AM CDT BASIC METABOLIC PANEL Routine 10/21/2024 8:38 AM CDT XR CHEST 1 VIEW IP Routine 10/21/2024 6:20 AM CDT US RUQ IP Routine 10/20/2024 11:44 AM CDT EGFR Routine 10/20/2024 6:44 AM CDT PHOSPHORUS Routine 10/20/2024 6:44 AM CDT MAGNESIUM Routine 10/20/2024 6:44 AM CDT CBC WITHOUT DIFFERENTIAL Routine 10/20/2024 6:44 AM CDT BASIC METABOLIC PANEL Routine 10/20/2024 6:44 AM CDT XR CHEST 1 VIEW IP Routine 10/20/2024 6:15 AM CDT EGFR Timed 10/19/2024 1:29 PM CDT MAGNESIUM Timed 10/19/2024 1:29 PM CDT CALCIUM,IONIZED, WHOLE BLOOD Timed 10/19/2024 1:29 PM CDT CBC WITHOUT DIFFERENTIAL Timed 10/19/2024 1:29 PM CDT BASIC METABOLIC PANEL Timed 10/19/2024 1:29 PM CDT PROTIME-INR Routine 10/19/2024 9:29 AM CDT HEPATIC FUNCTION PANEL Routine 9:29 AM CDT HEPATITIS PANEL, ACUTE Routine 9:29 AM CDT XR CHEST 1 VIEW IP Routine 10/19/2024 4:54 AM CDT ECG 12-LEAD STAT 10/19/2024 3:14 AM CDT EGFR Routine 10/19/2024 2:59 AM CDT PHOSPHORUS Routine 10/19/2024 2:59 AM CDT MAGNESIUM Routine 10/19/2024 2:59 AM CDT CBC WITHOUT DIFFERENTIAL Routine 10/19/2024 2:59 AM CDT BASIC METABOLIC PANEL Routine 10/19/2024 2:59 AM CDT CLINICAL PATHOLOGY REPORT Routine 10/18/2024 11:46 AM CDT LACTATE STAT 10/18/2024 6:50 AM CDT XR CHEST 1 VIEW IP Routine 10/18/2024 5:17 AM CDT HEPATIC FUNCTION PANEL Add-On 3:32 AM CDT LACTATE DEHYDROGENASE Add-On 10/18/2024 3:32 AM CDT HAPTOGLOBIN Add-On 10/18/2024 3:32 AM CDT EGFR Routine 10/18/2024 3:32 AM CDT PHOSPHORUS Routine 10/18/2024 3:32 AM CDT MAGNESIUM Routine 10/18/2024 3:32 AM CDT CBC WITHOUT DIFFERENTIAL Routine 10/18/2024 3:32 AM CDT BASIC METABOLIC PANEL Routine 10/18/2024 3:32 AM CDT POCT GLUCOSE DEVICE Routine 10/17/2024 6 :21 PM CDT MANUAL DIFFERENTIAL Routine 10/17/2024 6 :00 PM CDT EGFR Routine 10/17/2024 6:00 PM CDT CALCIUM,IONIZED, WHOLE BLOOD Routine 10/17/2024 6:00 PM CDT BLOOD GAS, ARTERIAL Routine 10/17/2024 6 :00 PM CDT PHOSPHORUS Routine 10/17/2024 6:00 PM CDT MAGNESIUM Routine 10/17/2024 6:00 PM CDT BASIC METABOLIC PANEL Routine 10/17/2024 6:00 PM CDT CBC WITH AUTO DIFFERENTIAL Routine 10/17/2024 6:00 PM CDT TRANSTHORACIC ECHO (TTE) LIMITED/FOLLOW UP W LTD DOPPLER/CF WO CONTRAST Routine 10/17/2024 9:24 AM CDT EGFR STAT 10/17/2024 8:03 AM CDT CALCIUM,IONIZED, WHOLE BLOOD STAT 10/17/2024 8:03 AM CDT MAGNESIUM STAT 10/17/2024 8:03 AM CDT BASIC METABOLIC PANEL STAT 10/17/2024 8:03 AM CDT CBC WITHOUT DIFFERENTIAL STAT 10/17/2024 6:41 AM CDT LACTATE STAT 10/17/2024 6:41 AM CDT CBC WITHOUT DIFFERENTIAL STAT 10/17/2024 5:51 AM CDT LACTATE Routine 10/17/2024 5:51 AM CDT VANCOMYCIN LEVEL RANDOM Timed 10/17/2024 4:57 AM CDT XR CHEST 1 VIEW IP Routine 10/17/2024 4:56 AM CDT CBC WITHOUT DIFFERENTIAL Routine 10/16/2024 9:31 PM CDT CRITICAL CARE Routine 10/16/2024 8:44 PM CDT Aortic valve stenosis, etiology of cardiac valve disease unspecified POCT GLUCOSE DEVICE Routine 10/16/2024 8 :12 PM CDT TRANSFUSE RED BLOOD CELLS Timed 10/16/2024 7:45 PM CDT TRANSFUSE RED BLOOD CELLS Timed 10/16/2024 4:15 PM CDT LACTATE DEHYDROGENASE Add-On 10/16/2024 2:38 PM CDT HAPTOGLOBIN Add-On 10/16/2024 2:38 PM CDT EGFR Timed 10/16/2024 2:38 PM CDT BASIC METABOLIC PANEL Timed 10/16/2024 2:38 PM CDT MAGNESIUM Routine 10/16/2024 2:38 PM CDT CBC WITHOUT DIFFERENTIAL Timed 10/16/2024 2:38 PM CDT BLOOD GAS, ARTERIAL Routine 10/16/2024 2 :24 PM CDT CALCIUM,IONIZED, WHOLE BLOOD Routine 10/16/2024 2:24 PM CDT LACTATE Timed 10/16/2024 2:24 PM CDT PREPARE RBC STAT 10/16/2024 2:09 PM CDT TRANSFUSE RED BLOOD CELLS Timed 10/16/2024 12:31 PM CDT CBC WITHOUT DIFFERENTIAL STAT 10/16/2024 12:04 PM CDT BLOOD CULTURE STAT 10/16/2024 12:04 PM CDT INSERT ARTERIAL LINE Routine 10/16/2024 11:42 AM CDT Aortic valve stenosis, etiology of cardiac valve disease unspecified CENTRAL LINE Routine 10/16/2024 11:41 AM CDT Aortic valve stenosis, etiology of cardiac valve disease unspecified URINALYSIS, MICROSCOPIC ONLY STAT 10/16/2024 11:30 AM CDT URINALYSIS AND REFLEX TO MICROSCOPIC AND CULTURE STAT 10/16/2024 11:30 AM CDT TRANSFUSE RED BLOOD CELLS Timed 10/16/2024 11:16 AM CDT INFECTION PREVENTION MRSA ONLY (STAPHYLOCOCCUS AUREUS) PCR Routine 10/16/2024 11:03 AM CDT PREPARE RBC STAT 10/16/2024 10:37 AM CDT POC BLOOD GAS AND CHEMISTRIES, ARTERIAL Routine 10/16/2024 10:02 AM CDT DIRECT ANTIGLOBULIN TEST Routine 10/16/2024 10:01 AM CDT EGFR STAT 10/16/2024 10:01 AM CDT APTT STAT 10/16/2024 10:01 AM CDT PROTIME-INR STAT 10/16/2024 10:01 AM CDT LACTATE STAT 10/16/2024 10:01 AM CDT BASIC METABOLIC PANEL STAT 10/16/2024 10:01 AM CDT TYPE AND SCREEN Timed 10/16/2024 10:01 AM CDT BLOOD GAS, ARTERIAL Routine 10/16/2024 10:01 AM CDT BLOOD CULTURE STAT 10/16/2024 10:01 AM CDT TRANSTHORACIC ECHO (TTE) LIMITED/FOLLOW UP W LTD DOPPLER/CF WO CONTRAST STAT 10/16/2024 9:35 AM CDT PREPARE RBC STAT 10/16/2024 9:[address] CHEST ABDOMEN PELVIS WO CONTRAST ED Urgent/IP Urgent 10/16/2024 9:[address] HEAD WO CONTRAST Critical/Life-T hreatening 10/16/2024 9:03 AM CDT POC BLOOD GAS AND CHEMISTRIES, ARTERIAL Routine 10/16/2024 8:36 AM CDT POCT GLUCOSE DEVICE Routine 10/16/2024 8 :24 AM CDT EGFR Routine 10/16/2024 5:14 AM CDT CBC WITHOUT DIFFERENTIAL Routine 10/16/2024 5:14 AM CDT BASIC METABOLIC PANEL Routine 10/16/2024 5:14 AM CDT XR CHEST 1 VIEW IP Routine 10/16/2024 4:29 AM CDT EGFR Timed 10/15/2024 1:32 PM CDT BASIC METABOLIC PANEL Timed 10/15/2024 1:32 PM CDT CBC WITHOUT DIFFERENTIAL Timed 10/15/2024 1:32 PM CDT POCT GLUCOSE DEVICE Routine 10/15/2024 11:55 AM CDT XR CHEST 1 VIEW IP Routine 10/15/2024 6:31 AM CDT ECG 12-LEAD Routine 10/15/2024 1:15 AM RN QUALITY POCT GLUCOSE DEVICE Routine 10/14/2024 8 :35 PM RN QUALITY TRANSTHORACIC ECHO (TTE) COMPLETE W DOPPLER/CF WO CONTRAST Routine 10/14/2024 9:52 AM RN QUALITY POCT GLUCOSE DEVICE Routine 10/14/2024 7 :57 AM RN QUALITY XR CHEST 1 VIEW IP Routine 10/14/2024 6:00 AM RN QUALITY EGFR Routine 10/14/2024 5:20 AM RN QUALITY MAGNESIUM Routine 10/14/2024 5:20 AM RN QUALITY CBC WITHOUT DIFFERENTIAL Routine 10/14/2024 5:20 AM RN QUALITY BASIC METABOLIC PANEL Routine 10/14/2024 5:20 AM RN QUALITY POCT GLUCOSE DEVICE Routine 10/13/2024 8 :21 PM RN QUALITY POCT GLUCOSE DEVICE Routine 10/13/2024 5 :27 PM RN QUALITY XR CHEST 1 VIEW IP Routine 10/13/2024 4:35 PM RN QUALITY ICD LEAD DUAL 2 LEADS PPM OR ICD Routine 10/13/2024 3:51 PM RN QUALITY Aortic valve stenosis, etiology of cardiac valve disease unspecified Coronary artery disease involving nulato coronary artery of nulato heart without angina pectoris POCT GLUCOSE DEVICE Routine 10/13/2024 12:45 PM RN QUALITY ECG 12-LEAD STAT 10/13/2024 11:59 AM RN QUALITY ECG 12-LEAD STAT 10/13/2024 9:36 AM RN QUALITY POCT GLUCOSE DEVICE Routine 10/13/2024 7 :56 AM RN QUALITY XR CHEST 1 VIEW IP Routine 10/13/2024 6:24 AM RN QUALITY EGFR Routine 10/13/2024 5:50 AM RN QUALITY PROTIME-INR Routine 10/13/2024 5:50 AM RN QUALITY APTT Routine 10/13/2024 5:50 AM RN QUALITY MAGNESIUM Routine 10/13/2024 5:50 AM RN QUALITY CBC WITHOUT DIFFERENTIAL Routine 10/13/2024 5:50 AM RN QUALITY BASIC METABOLIC PANEL Routine 10/13/2024 5:50 AM RN QUALITY ECG 12-LEAD Routine 10/12/2024 10:08 PM RN QUALITY POCT GLUCOSE DEVICE Routine 10/12/2024 9 :59 PM RN QUALITY POCT GLUCOSE DEVICE Routine 10/12/2024 9 :27 PM RN QUALITY POCT GLUCOSE DEVICE Routine 10/12/2024 5 :44 PM RN QUALITY POCT GLUCOSE DEVICE Routine 10/12/2024 1 :00 PM RN QUALITY ECG 12-LEAD Routine 10/12/2024 10:04 AM RN QUALITY POCT GLUCOSE DEVICE Routine 10/12/2024 7 :53 AM RN QUALITY XR CHEST 1 VIEW IP Routine 10/12/2024 6:11 AM RN QUALITY EGFR Routine 10/12/2024 4:30 AM RN QUALITY MAGNESIUM Routine 10/12/2024 4:30 AM RN QUALITY CBC WITHOUT DIFFERENTIAL Routine 10/12/2024 4:30 AM RN QUALITY BASIC METABOLIC PANEL Routine 10/12/2024 4:30 AM RN QUALITY POCT GLUCOSE DEVICE Routine 10/11/2024 8 :46 PM RN QUALITY POCT GLUCOSE DEVICE Routine 10/11/2024 5 :13 PM RN QUALITY POCT GLUCOSE DEVICE Routine 10/11/2024 12:12 PM RN QUALITY POCT GLUCOSE DEVICE Routine 10/11/2024 8 :24 AM RN QUALITY CRITICAL CARE Routine 10/11/2024 6:32 AM RN QUALITY Coronary artery disease involving nulato coronary artery of nulato heart without angina pectoris XR CHEST 1 VIEW IP Routine 10/11/2024 5:59 AM RN QUALITY OXYHEMOGLOBIN, PULMONARY ARTERY Routine 10/11/2024 5:30 AM RN QUALITY EGFR Routine 10/11/2024 5:22 AM RN QUALITY CALCIUM,IONIZED, WHOLE BLOOD Routine 10/11/2024 5:22 AM RN QUALITY MAGNESIUM Routine 10/11/2024 5:22 AM RN QUALITY CBC WITHOUT DIFFERENTIAL Routine 10/11/2024 5:22 AM RN QUALITY BASIC METABOLIC PANEL Routine 10/11/2024 5:22 AM RN QUALITY PHOSPHORUS Routine 10/11/2024 5:22 AM RN QUALITY POCT GLUCOSE DEVICE Routine 10/11/2024 5 :20 AM RN QUALITY POCT GLUCOSE DEVICE Routine 10/11/2024 4 :26 AM RN QUALITY POCT GLUCOSE DEVICE Routine 10/11/2024 3 :23 AM RN QUALITY POCT GLUCOSE DEVICE Routine 10/11/2024 2 :26 AM RN QUALITY POCT GLUCOSE DEVICE Routine 10/11/2024 1 :28 AM RN QUALITY POCT GLUCOSE DEVICE Routine 10/11/2024 12:27 AM RN QUALITY POCT GLUCOSE DEVICE Routine 10/10/2024 11:26 PM RN QUALITY POCT GLUCOSE DEVICE Routine 10/10/2024 10:27 PM RN QUALITY POCT GLUCOSE DEVICE Routine 10/10/2024 9 :26 PM RN QUALITY CRITICAL CARE Routine 10/10/2024 7:59 PM RN QUALITY Aortic valve stenosis, etiology of cardiac valve disease unspecified POCT GLUCOSE DEVICE Routine 10/10/2024 7 :12 PM RN QUALITY POCT GLUCOSE DEVICE Routine 10/10/2024 6 :06 PM RN QUALITY POCT GLUCOSE DEVICE Routine 10/10/2024 5 :02 PM RN QUALITY POCT GLUCOSE DEVICE Routine 10/10/2024 4 :06 PM RN QUALITY POCT GLUCOSE DEVICE Routine 10/10/2024 3 :02 PM RN QUALITY POCT GLUCOSE DEVICE Routine 10/10/2024 1 :58 PM RN QUALITY EGFR Routine 10/10/2024 1:54 PM RN QUALITY DIFFERENTIAL AUTO Routine 10/10/2024 1:5 4 PM RN QUALITY CALCIUM,IONIZED, WHOLE BLOOD Routine 10/10/2024 1:54 PM RN QUALITY MAGNESIUM Routine 10/10/2024 1:54 PM RN QUALITY BASIC METABOLIC PANEL Routine 10/10/2024 1:54 PM RN QUALITY CBC WITH AUTO DIFFERENTIAL Routine 10/10/2024 1:54 PM RN QUALITY POCT GLUCOSE DEVICE Routine 10/10/2024 12:58 PM RN QUALITY URINALYSIS AND REFLEX TO MICROSCOPIC STAT 10/10/2024 12:27 PM RN QUALITY POCT GLUCOSE DEVICE Routine 10/10/2024 11:53 AM RN QUALITY POCT GLUCOSE DEVICE Routine 10/10/2024 10:48 AM RN QUALITY POCT GLUCOSE DEVICE Routine 10/10/2024 9 :48 AM RN QUALITY POCT GLUCOSE DEVICE Routine 10/10/2024 8 :16 AM RN QUALITY ECG 12-LEAD STAT 10/10/2024 7:57 AM RN QUALITY EXTUBATION Routine 10/10/2024 7:12 AM RN QUALITY BLOOD GAS, ARTERIAL STAT 10/10/2024 6 :52 AM RN QUALITY CRITICAL CARE Routine 10/10/2024 6:41 AM RN QUALITY Aortic valve stenosis, etiology of cardiac valve disease unspecified Coronary artery disease involving nulato coronary artery of nulato heart without angina pectoris Nonrheumatic aortic valve stenosis POCT GLUCOSE DEVICE Routine 10/10/2024 6 :10 AM RN QUALITY XR CHEST 1 VIEW IP Routine 10/10/2024 5:55 AM RN QUALITY POCT GLUCOSE DEVICE Routine 10/10/2024 5 :15 AM RN QUALITY OXYHEMOGLOBIN, PULMONARY ARTERY Routine 10/10/2024 2:34 AM RN QUALITY EGFR Routine 10/10/2024 2:27 AM RN QUALITY DIFFERENTIAL AUTO Routine 10/10/2024 2:2 7 AM RN QUALITY HEPATIC FUNCTION PANEL Routine 2:27 AM RN QUALITY VITAMIN D 25 HYDROXY Routine 10/10/2024 2:27 AM RN QUALITY LIPID PANEL Routine 10/10/2024 2:27 AM RN QUALITY THYROID FUNCTION CASCADE Routine 10/10/2024 2:27 AM RN QUALITY PHOSPHORUS Routine 10/10/2024 2:27 AM RN QUALITY MAGNESIUM Routine 10/10/2024 2:27 AM RN QUALITY BASIC METABOLIC PANEL Routine 10/10/2024 2:27 AM RN QUALITY CBC WITH AUTO DIFFERENTIAL Routine 10/10/2024 2:27 AM RN QUALITY CALCIUM,IONIZED, WHOLE BLOOD Routine 10/10/2024 2:21 AM RN QUALITY BLOOD GAS, ARTERIAL Routine 10/10/2024 2 :21 AM RN QUALITY POCT GLUCOSE DEVICE Routine 10/09/2024 11:11 PM RN QUALITY BLOOD GAS, ARTERIAL Timed 10/09/2024 9 :50 PM RN QUALITY CRITICAL CARE Routine 10/09/2024 8:31 PM RN QUALITY Aortic valve stenosis, etiology of cardiac valve disease unspecified EGFR STAT 10/09/2024 8:23 PM RN QUALITY DIFFERENTIAL AUTO STAT 10/09/2024 8:2 3 PM RN QUALITY BLOOD GAS, ARTERIAL STAT 10/09/2024 8 :23 PM RN QUALITY BASIC METABOLIC PANEL STAT 10/09/2024 8:23 PM RN QUALITY FIBRINOGEN STAT 10/09/2024 8:23 PM RN QUALITY PROTIME-INR STAT 10/09/2024 8:23 PM RN QUALITY MAGNESIUM Routine 10/09/2024 8:23 PM RN QUALITY CALCIUM,IONIZED, WHOLE BLOOD STAT 10/09/2024 8:23 PM RN QUALITY CBC WITH AUTO DIFFERENTIAL STAT 10/09/2024 8:23 PM RN QUALITY XR CHEST 1 VIEW Timed 10/09/2024 8:19 PM RN QUALITY POCT GLUCOSE DEVICE Routine 10/09/2024 7 :06 PM RN QUALITY TRANSFUSE PLATELETS Timed 10/09/2024 6 :51 PM RN QUALITY TRANSFUSE CRYOPRECIPITATE (POOLED UNITS) Timed 10/09/2024 6:44 PM RN QUALITY TRANSFUSE CRYOPRECIPITATE (POOLED UNITS) Timed 10/09/2024 5:57 PM RN QUALITY CRITICAL CARE Routine 10/09/2024 5:28 PM RN QUALITY Aortic valve stenosis, etiology of cardiac valve disease unspecified Coronary artery disease involving nulato coronary artery of nulato heart without angina pectoris TRANSFUSE PLATELETS Timed 10/09/2024 5 :24 PM RN QUALITY POCT GLUCOSE DEVICE Routine 10/09/2024 5 :23 PM RN QUALITY PREPARE CRYOPRECIPITATE (POOLED UNITS) STAT 10/09/2024 5:10 PM RN QUALITY XR CHEST 1 VIEW Critical/Life-T hreatening 10/09/2024 5:05 PM RN QUALITY EGFR STAT 10/09/2024 4:25 PM RN QUALITY FIBRINOGEN Add-On 10/09/2024 4:25 PM RN QUALITY PHOSPHORUS Add-On 10/09/2024 4:25 PM RN QUALITY MAGNESIUM STAT 10/09/2024 4:25 PM RN QUALITY CALCIUM,IONIZED, WHOLE BLOOD STAT 10/09/2024 4:25 PM RN QUALITY APTT STAT 10/09/2024 4:25 PM RN QUALITY PROTIME-INR STAT 10/09/2024 4:25 PM RN QUALITY CBC WITHOUT DIFFERENTIAL Timed 10/09/2024 4:25 PM RN QUALITY BLOOD GAS, ARTERIAL Timed 10/09/2024 4 :25 PM RN QUALITY BASIC METABOLIC PANEL STAT 10/09/2024 4:25 PM RN QUALITY POCT GLUCOSE DEVICE Routine 10/09/2024 4 :07 PM RN QUALITY PREPARE PLATELETS STAT 10/09/2024 3:3 7 PM RN QUALITY POCT ACTIVATED CLOTTING TIME, HIGH RANGE Routine 10/09/2024 3:23 PM RN QUALITY POC BLOOD GAS AND CHEMISTRIES, ARTERIAL Routine 10/09/2024 3:18 PM RN QUALITY APTT STAT 10/09/2024 3:00 PM RN QUALITY PLATELET COUNT Routine 10/09/2024 3:00 PM RN QUALITY PROTIME-INR STAT 10/09/2024 3:00 PM RN QUALITY FIBRINOGEN STAT 10/09/2024 3:00 PM RN QUALITY TRANSFUSE PLATELETS Timed 10/09/2024 2 :38 PM RN QUALITY POC BLOOD GAS AND CHEMISTRIES, ARTERIAL Routine 10/09/2024 2:09 PM RN QUALITY TRANSFUSE PLASMA Timed 10/09/2024 2:03 PM RN QUALITY POCT ACTIVATED CLOTTING TIME, HIGH RANGE Routine 10/09/2024 2:03 PM RN QUALITY TRANSFUSE PLATELETS Timed 10/09/2024 2 :00 PM RN QUALITY POC BLOOD GAS AND CHEMISTRIES, ARTERIAL Routine 10/09/2024 1:34 PM RN QUALITY POCT ACTIVATED CLOTTING TIME, HIGH RANGE Routine 10/09/2024 1:31 PM RN QUALITY POC BLOOD GAS AND CHEMISTRIES, ARTERIAL Routine 10/09/2024 1:08 PM RN QUALITY POCT ACTIVATED CLOTTING TIME, HIGH RANGE Routine 10/09/2024 1:06 PM RN QUALITY PLATELET COUNT STAT 10/09/2024 1:05 PM RN QUALITY POC BLOOD GAS AND CHEMISTRIES, ARTERIAL Routine 10/09/2024 12:31 PM RN QUALITY POCT ACTIVATED CLOTTING TIME, HIGH RANGE Routine 10/09/2024 12:29 PM RN QUALITY POC BLOOD GAS AND CHEMISTRIES, ARTERIAL Routine 10/09/2024 11:59 AM RN QUALITY POCT ACTIVATED CLOTTING TIME, HIGH RANGE Routine 10/09/2024 11:57 AM RN QUALITY POC BLOOD GAS AND CHEMISTRIES, ARTERIAL Routine 10/09/2024 11:29 AM RN QUALITY POCT ACTIVATED CLOTTING TIME, HIGH RANGE Routine 10/09/2024 11:27 AM RN QUALITY POC BLOOD GAS AND CHEMISTRIES, ARTERIAL Routine 10/09/2024 10:55 AM RN QUALITY POCT ACTIVATED CLOTTING TIME, HIGH RANGE Routine 10/09/2024 10:53 AM RN QUALITY SURGICAL PATHOLOGY Routine 10/09/2024 10:29 AM RN QUALITY Coronary artery disease involving nulato coronary artery of nulato heart without angina pectoris Nonrheumatic aortic valve stenosis POC BLOOD GAS AND CHEMISTRIES, ARTERIAL Routine 10/09/2024 10:00 AM RN QUALITY POCT ACTIVATED CLOTTING TIME, HIGH RANGE Routine 10/09/2024 9:54 AM RN QUALITY ANESTHESIA CENTRAL VENOUS LINE PLACEMENT Routine 10/09/2024 9:32 AM RN QUALITY ANESTHESIA CENTRAL VENOUS LINE PLACEMENT Routine 10/09/2024 9:32 AM RN QUALITY ANESTHESIA ARTERIAL LINE PLACEMENT Routine 10/09/2024 9:23 AM RN QUALITY ANESTHESIA GENEVA Routine 10/09/2024 9:18 AM RN QUALITY LA AN ELECTIVE ENDOTRACHEAL AIRWAY Routine 10/09/2024 9:07 AM RN QUALITY POC BLOOD GAS AND CHEMISTRIES, ARTERIAL Routine 10/09/2024 8:49 AM RN QUALITY POCT ACTIVATED CLOTTING TIME, HIGH RANGE Routine 10/09/2024 8:46 AM RN QUALITY REPLACEMENT AORTIC VALVE 10/09/2024 8:04 AM RN QUALITY Coronary artery disease involving nulato coronary artery of nulato heart without angina pectoris Nonrheumatic aortic valve stenosis CORONARY ARTERY BYPASS GRAFT - INTERNAL MAMMARY/SAPHENOUS VEIN GRAFT - LEG 10/09/2024 8:04 AM RN QUALITY Coronary artery disease involving nulato coronary artery of nulato heart without angina pectoris Nonrheumatic aortic valve stenosis APTT Timed 10/09/2024 4:30 AM RN QUALITY CBC WITHOUT DIFFERENTIAL Timed 10/09/2024 4:30 AM RN QUALITY APTT Timed 10/08/2024 6:57 PM RN QUALITY APTT STAT 10/08/2024 12:52 PM RN QUALITY DIFFERENTIAL AUTO Routine 10/08/2024 11:35 AM RN QUALITY B CHECK SAMPLE STAT 10/08/2024 11:35 AM RN QUALITY TYPE AND SCREEN Timed 10/08/2024 11:35 AM RN QUALITY CBC WITH AUTO DIFFERENTIAL Routine 10/08/2024 11:35 AM RN QUALITY APTT Timed 10/08/2024 11:35 AM RN QUALITY PREPARE PLASMA STAT 10/08/2024 10:57 AM RN QUALITY PREPARE PLATELETS STAT 10/08/2024 10:57 AM RN QUALITY PREPARE RBC STAT 10/08/2024 10:57 AM RN QUALITY APTT Routine 10/08/2024 3:57 AM RN QUALITY APTT Timed 10/07/2024 7:05 AM RN QUALITY XR CHEST 1 VIEW IP Routine 10/06/2024 9:13 AM RN QUALITY APTT Routine 10/06/2024 4:53 AM RN QUALITY CBC WITHOUT DIFFERENTIAL Timed 10/06/2024 12:10 AM RN QUALITY RESPIRATORY PATHOGEN PANEL Routine 10/05/2024 3:21 PM RN QUALITY TRANSESOPHAGEAL ECHO (GENEVA) W DOPPLER/CF WO CONTRAST Routine 10/05/2024 2:29 PM RN QUALITY TRANSESOPHAGEAL ECHOCARDIOGRAM 10/05/2024 1:55 PM RN QUALITY Aortic valve stenosis, etiology of cardiac valve disease unspecified EGFR Routine 10/05/2024 12:55 PM RN QUALITY DIFFERENTIAL AUTO Routine 10/05/2024 12:55 PM RN QUALITY BASIC METABOLIC PANEL Routine 10/05/2024 12:55 PM RN QUALITY CBC WITH AUTO DIFFERENTIAL Routine 10/05/2024 12:55 PM RN QUALITY APTT Routine 10/05/2024 3:14 AM RN QUALITY US CAROTIDS DUPLEX BILATERAL IP Routine 10/04/2024 3:[address] CHEST WO CONTRAST IP Routine 10/04/2024 11:54 AM RN QUALITY APTT Timed 10/04/2024 10:20 AM RN QUALITY XR CHEST 1 VIEW IP Routine 10/04/2024 6:29 AM RN QUALITY APTT Timed 10/04/2024 4:25 AM RN QUALITY HEMOGLOBIN A1C Add-On 10/03/2024 9:56 PM RN QUALITY EGFR Routine 10/03/2024 9:56 PM RN QUALITY APTT Routine 10/03/2024 9:56 PM RN QUALITY PROTIME-INR Routine 10/03/2024 9:56 PM RN QUALITY CBC WITHOUT DIFFERENTIAL Routine 10/03/2024 9:56 PM RN QUALITY MAGNESIUM Routine 10/03/2024 9:56 PM RN QUALITY COMPREHENSIVE METABOLIC PANEL Routine 10/03/2024 9:56 PM RN QUALITY URINALYSIS, MICROSCOPIC ONLY Routine 10/03/2024 9:22 PM RN QUALITY URINE CULTURE Routine 10/03/2024 9:22 PM RN QUALITY URINALYSIS AND REFLEX TO MICROSCOPIC AND CULTURE Routine 10/03/2024 9:22 PM RN QUALITY CARDIOLOGY DOCUMENT SCAN Routine 10/03/2024 4:14 PM RN QUALITY CARDIOLOGY DOCUMENT SCAN Routine 10/02/2024 4:12 PM RN QUALITY from Last 3 Months Results * DEVICE CHECK - IN OFFICE (11/15/2024 8:03 AM CDT) Anatomical Region Laterality Modality Other Narrative 11/16/2024 8:26 AM CDT Medtronic Eulalia Dual Pacemaker. Dx; Tachy/Thomas, Afib, Pauses. DOI 10/13/2024-Abilio. [facility] remote. Supervising MD: Dr. Cerda. Office AAI<> DDD Pacemaker evaluation demonstrated appropriate device function. Left pectoral incision well approximated without signs of infection noted. Battery function: 3.18 V, 14.6 years remaining battery life to CATARINO. Appropriate lead measurements noted. Presenting rhythm- VS (SR). AP- 1.6%, BOG WORKER- <0.1%. Five Atrial high rate episodes noted, iegm's show AFib, longest duration 39 minutes on 10/19/2024. No Ventricular high rate episodes noted. Medications; Plavix, ASA, Pacerone, Toprol-XL. Atrial amplitude decreased to 2.0 V. Ventricular amplitude decreased to 1.5 V. See scanned report. Office device f/u 12/12/2025. [facility] remote f/u 02/21/2025. Suzanna Martino RN Remberto Cerda MD [facility] C[facility] PROC EDURES Final Result * Glucose, random (Outreach) (10/25/2024 10:34 AM CDT) Glucose 111 70 - 199 mg/dL Comment: Interpretive Data Fasting glucose >/= 126 mg/dl is diagnostic for diabetes. Fasting is defined as no caloric intake for at least 8 hours. Fasting glucose between 100 mg/dl to 125 mg/dl is diagnostic of prediabetes. In a patient with classic symptoms of hyperglycemia or hyperglycemic crisis, a random glucose >/= 200 mg/dl is diagnostic for diabetes. In the absence of unequivocal hyperglycemia, results should be confirmed by repeat testing. The classification and Diagnosis of Diabetes Diabetes Care 2021; 46: S19-S40. Current interpretive data was last revised 2022. Blood 10/25/2024 10:3 4 AM CDT 10/25/2024 1:31 PM CDT us Notinfile Unknown LAB BLOOD ORDERABLES Final Res ult Performing Organization Address [facility] Co de Phone Number NICOLE VANESSA Lisa [facility] Department [place] [address] * (ABNORMAL) eGFR (10/25/2024 10:34 AM CDT) eGFR 49(L) >=60 mL/min/1. 73 m2 Comment: Interpretive Data Reference Interval Normal >/= 90 mL/min/1.73m2 Mildly decreased* 60 - 89 mL/min/1.73m2 Mildly to moderately decreased 45 - 59 mL/min/1.73m2 Moderately to severely decreased 30 - 44 mL/min/1.73m2 Severely decreased 15 - 29 mL/min/1.73m2 Kidney Failure < 15 mL/min/1.73m2 *Relative to young adult level Estimated glomerular filtration rate is determined by the 2020 CKD-EPI equation recommended by the National Kidney Foundation (A Unifying Approach to GFR Estimation: Recommendations of the NKF-ASK Task Force on Reassessing the Inclusion of Race in Diagnosing Kidney Disease, JASN 2020). The CKD-EPI equation should not be used for patients with unstable renal function and has not been validated in children and those over 70. Current interpretive data was last reviewed 2021. Blood 10/25/2024 10:3 4 AM CDT 10/25/2024 1:43 PM CDT us Notinfile Unknown LAB BLOOD ORDERABLES Final Res ult Performing Organization Address City/[facility]/ZIP Co de Phone Number NICOLE VANESSA Lisa [facility] Department [place] [address] * (ABNORMAL) Differential, auto (10/25/2024 10:34 AM CDT) Neutrophil abs 8.2(H) 1.5 - 6.5 K/cumm Imm gran abs 0.1 0.0 - 0.1 K/cumm [facility] Lymphocyte abs 0.9 0.8 - 3.3 K/cumm [facility] Monocyte abs 0.7 0.2 - 0.8 K/cumm [facility] Eosinophil abs 0.1 0.0 - 0.5 K/cumm [facility] Basophil abs 0.1 0.0 - 0.1 K/cumm [facility] Neutrophil pct 81.6 % [facility] Comment: Interpretive Data Percent cell count reference ranges are not reported, since discordance with absolute values may lead to misinterpretation of CBC data. Current Interpretive Data was last revised on 2017. Imm gran pct 0.6 % [facility] Comment: Interpretive Data Percent cell count reference ranges are not reported, since discordance with absolute values may lead to misinterpretation of CBC data. Current Interpretive Data was last revised on 2017. Lymphocyte pct 9.0 % [facility] Comment: Interpretive Data Percent cell count reference ranges are not reported, since discordance with absolute values may lead to misinterpretation of CBC data. Current Interpretive Data was last revised on 2017. Monocyte pct 6.7 % [facility] Comment: Interpretive Data Percent cell count reference ranges are not reported, since discordance with absolute values may lead to misinterpretation of CBC data. Current Interpretive Data was last revised on 2017. Eosinophil pct 1.4 % [facility] Comment: Interpretive Data Percent cell count reference ranges are not reported, since discordance with absolute values may lead to misinterpretation of CBC data. Current Interpretive Data was last revised on 2017. Basophil pct 0.7 % [facility] Comment: Interpretive Data Percent cell count reference ranges are not reported, since discordance with absolute values may lead to misinterpretation of CBC data. Current Interpretive Data was last revised on 2017. Blood 10/25/2024 10:3 4 AM CDT 10/25/2024 1:31 PM CDT us Notinfile Unknown LAB BLOOD ORDERABLES Final Res ult [facility] Department [place] [address] * (ABNORMAL) Basic metabolic panel without glucose (10/25/2024 10:34 AM CDT) [facility] Sodium 135 135 - 145 mmol/L Potassium, pl 3.5 3.3 - 4.9 mmol/L [facility] Chloride 95(L) 97 - 110 mmol/L [facility] CO2 30 22 - 32 mmol/L [facility] Anion gap 10 2 - 15 mmol/L [facility] BUN 17 6 - 25 mg/dL [facility] Creatinine 1.45(H) 0.80 - 1.30 mg/dL [facility] Calcium 8.2(L) 8.5 - 10.3 mg/dL [facility] Blood 10/25/2024 10:3 4 AM CDT 10/25/2024 1:31 PM CDT us Notinfile Unknown LAB BLOOD ORDERABLES Final Res ult [facility] Department [place] [address] * (ABNORMAL) CBC with auto differential (10/25/2024 10:34 AM CDT) [facility] WBC 10.0(H) 3.8 - 9.9 K/cumm Hgb 11.7(L) 13.0 - 17.5 g/dL [facility] Hct 36.6(L) 38.9 - 50.3 % [facility] Plt 192 150 - 400 K/cumm [facility] MPV 11.4 9.1 - 12.3 fL [facility] RBC 3.95(L) 4.30 - 5.80 M/cumm [facility] MCV 92.7 81.3 - 96.4 fL [facility] MCH 29.6 27.1 - 33.3 pg [facility] MCHC 32.0(L) 32.3 - 35.7 g/dL [facility] RDW CV 16.0(H) 11.1 - 14.9 % [facility] RDW SD 51.1(H) 35.7 - 48.1 fL [facility] NRBC abs 0.00 0.00 - 0.01 K/cumm [facility] Blood 10/25/2024 10:3 4 AM CDT 10/25/2024 1:31 PM CDT us Notinfile Unknown LAB BLOOD ORDERABLES Final Res ult Performing Organization Address City/[facility]/ZIP Co de Phone Number [facility] Department [place] [address] * eGFR (10/21/2024 8:38 AM CDT) eGFR 61 >=60 mL/min/1. 73 m2 Comment: Interpretive Data Reference Interval Normal >/= 90 mL/min/1.73m2 Mildly decreased* 60 - 89 mL/min/1.73m2 Mildly to moderately decreased 45 - 59 mL/min/1.73m2 Moderately to severely decreased 30 - 44 mL/min/1.73m2 Severely decreased 15 - 29 mL/min/1.73m2 Kidney Failure < 15 mL/min/1.73m2 *Relative to young adult level Estimated glomerular filtration rate is determined by the 2020 CKD-EPI equation recommended by the National Kidney Foundation (A Unifying Approach to GFR Estimation: Recommendations of the NKF-ASK Task Force on Reassessing the Inclusion of Race in Diagnosing Kidney Disease, JASN 2020). The CKD-EPI equation should not be used for patients with unstable renal function and has not been validated in children and those over 70. Current interpretive data was last reviewed 2021. Blood 10/21/2024 8:38 AM CDT 10/21/2024 9:15 AM CDT us Guillermo Mayes MD LAB BLOOD ORDERABLES Final R esult [facility] [address] Department [place] [address] * (ABNORMAL) CBC without differential (10/21/2024 8:38 AM CDT) Pathologist [facility] WBC 9.2 3.8 - 9.9 K/cumm Hgb 11.5(L) 13.0 - 17.5 g/dL [facility] Hct 36.8(L) 38.9 - 50.3 % [facility] Plt 126(L) 150 - 400 K/cumm [facility] MPV 11.4 9.1 - 12.3 fL [facility] RBC 3.83(L) 4.30 - 5.80 M/cumm [facility] MCV 96.1 81.3 - 96.[address] [facility] MCH 30.0 27.1 - 33.3 pg [facility] MCHC 31.3(L) 32.3 - 35.7 g/dL [facility] RDW CV 16.6(H) 11.1 - 14.9 % [facility] RDW SD 51.6(H) 35.7 - 48.[address] [facility] NRBC abs 0.00 0.00 - 0.01 K/cumm [facility] Blood 10/21/2024 8:38 AM CDT 10/21/2024 9:15 AM CDT Guillermo Mayes MD LAB BLOOD ORDERABLES Final R esult Performing Organization Address City/[facility] Co de Phone Number NICOLE [address] [address] [employer] [place] [address] * Phosphorus (10/21/2024 8:38 AM CDT) Pathologist [facility] Phosphorus, pl 2.4 2.3 - 4.5 mg/dL Blood 10/21/2024 8:38 AM CDT 10/21/2024 9:15 AM CDT Guillermo Mayes MD LAB BLOOD ORDERABLES Final R esult Performing Organization Address City/State/[facility] Co de Phone Number [facility] [id number] [address] Department [place] [address] * Magnesium (10/21/2024 8:38 AM CDT) Magnesium 2.2 1.4 - 2.5 mg/dL Blood 10/21/2024 8:38 AM CDT 10/21/2024 9:15 AM CDT Guillermo Mayes MD LAB BLOOD ORDERABLES Final R esult NICOLE RAYGOZA [id number] [address] [place] [address] * (ABNORMAL) Basic metabolic panel (10/21/2024 8:38 AM CDT) Sodium 136 135 - 145 mmol/L Potassium, pl 3.9 3.3 - 4.9 mmol/L [facility] Chloride 100 97 - 110 mmol/L [facility] CO2 25 22 - 32 mmol/L [facility] Anion gap 11 2 - 15 mmol/L [facility] BUN 31(H) 6 - 25 mg/dL [facility] Creatinine 1.21 0.80 - 1.30 mg/dL [facility] Comment:Icteric sample, test results may be affected. Glucose 105 70 - 199 mg/dL [facility] Comment: Interpretive Data Fasting glucose >/= 126 mg/dl is diagnostic for diabetes. Fasting is defined as no caloric intake for at least 8 hours. Fasting glucose between 100 mg/dl to 125 mg/dl is diagnostic of prediabetes. In a patient with classic symptoms of hyperglycemia or hyperglycemic crisis, a random glucose >/= 200 mg/dl is diagnostic for diabetes. In the absence of unequivocal hyperglycemia, results should be confirmed by repeat testing. The classification and Diagnosis of Diabetes Diabetes Care 2021; 46: S19-S40. Current interpretive data was last revised 2022. Calcium 8.8 8.5 - 10.3 mg/dL [facility] Blood 10/21/2024 8:38 AM CDT 10/21/2024 9:15 AM CDT Guillermo Mayes MD LAB BLOOD ORDERABLES Final R esult NICOEL RAYGOZA [id number] [address] Department [place] [address] * XR Chest 1 View - Portable - in AM (10/21/2024 6:20 AM CDT) Anatomical Region Laterality Modality Body, Chest N/A Computed Radiogr aphy 10/21/2024 10:0 1 AM CDT Impressions 10/21/2024 10:01 AM CDT Pacer leads are intact. Poststernotomy changes. No pneumothorax or pleural effusion. Cardiac mediastinal silhouette within normal limits. Minimal remaining pulmonary vascular congestion, having decreased since the previous study. Electronically signed by: Richie Cox M.D. Narrative 10/21/2024 10:01 AM CDT EXAMINATION: XR CHEST 1 VIEW DATE: 10/21/2024 4:45 AM INDICATION: Post cardiac surgery COMPARISON: 10/20/2024 Procedure Note Richie Cox MD - 10/21/2024 EXAMINATION: XR CHEST 1 VIEW DATE: 10/21/2024 4:45 AM INDICATION: Post cardiac surgery COMPARISON: 10/20/2024 IMPRESSION: Pacer leads are intact. Poststernotomy changes. No pneumothorax or pleural effusion. Cardiac mediastinal silhouette within normal limits. Minimal remaining pulmonary vascular congestion, having decreased since the previous study. Electronically signed by: Richie Cox M.D. Guillermo Mayes MD IMG XR PROCEDURES Final Resu lt * US RUQ (10/20/2024 11:44 AM CDT) Anatomical Region Laterality Modality Abdomen N/A Ultrasound 10/20/2024 11:5 8 AM CDT Impressions 10/20/2024 11:58 AM CDT Gallbladder sludge. Otherwise normal. Electronically signed by: Khadar Griffith M.D. Narrative 10/20/2024 11:58 AM CDT EXAMINATION: US RUQ DATE: 10/20/2024 8:00 AM HISTORY: elevated lfts, bili FINDINGS: The liver has normal size, contour and echotexture. No hepatic lesion is identified. There is no biliary ductal dilatation. There is sludge in the gallbladder. There is no gallbladder wall thickening or pericholecystic fluid. There is normal flow in the portal vein. Pancreas is poorly visualized. Visualized portions of right kidney, aorta and inferior vena cava are grossly normal. There is no right hydronephrosis. Procedure Note Khadar Griffith MD - 10/20/2024 EXAMINATION: US RUQ DATE: 10/20/2024 8:00 AM HISTORY: elevated lfts, bili FINDINGS: The liver has normal size, contour and echotexture. No hepatic lesion is identified. There is no biliary ductal dilatation. There is sludge in the gallbladder. There is no gallbladder wall thickening or pericholecystic fluid. There is normal flow in the portal vein. Pancreas is poorly visualized. Visualized portions of right kidney, aorta and inferior vena cava are grossly normal. There is no right hydronephrosis. IMPRESSION: Gallbladder sludge. Otherwise normal. Electronically signed by: Khadar Griffith M.D. us Guillermo Mayes MD IMG US PROCEDURES Final Resu lt * (ABNORMAL) eGFR (10/20/2024 6:44 AM CDT) eGFR 56(L) >=60 mL/min/1. 73 m2 Comment: Interpretive Data Reference Interval Normal >/= 90 mL/min/1.73m2 Mildly decreased* 60 - 89 mL/min/1.73m2 Mildly to moderately decreased 45 - 59 mL/min/1.73m2 Moderately to severely decreased 30 - 44 mL/min/1.73m2 Severely decreased 15 - 29 mL/min/1.73m2 Kidney Failure < 15 mL/min/1.73m2 *Relative to young adult level Estimated glomerular filtration rate is determined by the 2020 CKD-EPI equation recommended by the National Kidney Foundation (A Unifying Approach to GFR Estimation: Recommendations of the NKF-ASK Task Force on Reassessing the Inclusion of Race in Diagnosing Kidney Disease, JASN 2020). The CKD-EPI equation should not be used for patients with unstable renal function and has not been validated in children and those over 70. Current interpretive data was last reviewed 2021. Blood 10/20/2024 6:44 AM CDT 10/20/2024 7:00 AM CDT us Yvette Russell [employer] LAB BLOOD ORDERABLES Fin al Result Performing Organization Address City/[facility]/ZIP Co de Phone Number NICOLE [address] Department [place] [address] * (ABNORMAL) CBC without differential (10/20/2024 6:44 AM CDT) WBC 9.5 3.8 - 9.9 K/cumm Hgb 10.8(L) 13.0 - 17.5 g/dL [facility] Hct 33.7(L) 38.9 - 50.3 % [facility] Plt 141(L) 150 - 400 K/cumm [facility] MPV 11.4 9.1 - 12.3 fL [facility] RBC 3.67(L) 4.30 - 5.80 M/cumm [facility] MCV 91.8 81.3 - 96.4 fL [facility] MCH 29.4 27.1 - 33.3 pg [facility] MCHC 32.0(L) 32.3 - 35.7 g/dL [facility] RDW CV 16.4(H) 11.1 - 14.9 % [facility] RDW SD 48.4(H) 35.7 - 48.1 fL [facility] NRBC abs 0.00 0.00 - 0.01 K/cumm [facility] Blood 10/20/2024 6:44 AM CDT 10/20/2024 7:01 AM CDT Guillermo Mayes MD LAB BLOOD ORDERABLES Final R esult Performing Organization Address City/[facility]/ZIP Co de Phone Number NICOLE RAYGOZA [phone] [address] Department [place] [address] * Phosphorus (10/20/2024 6:44 AM CDT) Phosphorus, pl 2.3 2.3 - 4.5 mg/dL Blood 10/20/2024 6:44 AM CDT 10/20/2024 7:00 AM CDT Guilelrmo Mayes MD LAB BLOOD ORDERABLES Final R esult Performing Organization Address City/[facility] Co de Phone Number NICOLE RAYGOZA [address] [address] [facility] [place] [address] * Magnesium (10/20/2024 6:44 AM CDT) Pathologist [facility] Magnesium 2.2 1.4 - 2.5 mg/dL Blood 10/20/2024 6:44 AM CDT 10/20/2024 7:00 AM CDT Guillermo Mayes MD LAB BLOOD ORDERABLES Final R formerly [facility] Performing Organization Address [facility] de Phone Number NICOLE [address] [address] Department [place] [address] * (ABNORMAL) Basic metabolic panel (10/20/2024 6:44 AM CDT) Sodium 139 135 - 145 mmol/L Potassium, pl 4.1 3.3 - 4.9 mmol/L [facility] Chloride 103 97 - 110 mmol/L [facility] CO2 26 22 - 32 mmol/L [facility] Anion gap 10 2 - 15 mmol/L [facility] BUN 40(H) 6 - 25 mg/dL [facility] Creatinine 1.29 0.80 - 1.30 mg/dL [facility] Comment:Icteric sample, test results may be affected. Glucose 113 70 - 199 mg/dL [facility] Comment: Interpretive Data Fasting glucose >/= 126 mg/dl is diagnostic for diabetes. Fasting is defined as no caloric intake for at least 8 hours. Fasting glucose between 100 mg/dl to 125 mg/dl is diagnostic of prediabetes. In a patient with classic symptoms of hyperglycemia or hyperglycemic crisis, a random glucose >/= 200 mg/dl is diagnostic for diabetes. In the absence of unequivocal hyperglycemia, results should be confirmed by repeat testing. The classification and Diagnosis of Diabetes Diabetes Care 2021; 46: S19-S40. Current interpretive data was last revised 2022. Calcium 8.3(L) 8.5 - 10.3 mg/dL NICOLE RAYGOZA Blood 10/20/2024 6:44 AM CDT 10/20/2024 7:00 AM CDT Guillermo Mayes MD LAB BLOOD ORDERABLES Final R esult NICOLE RAYGOZA [address] [address] Department [place] [address] * XR Chest 1 View - Portable - in AM (10/20/2024 6:15 AM CDT) Anatomical Region Laterality Modality Body, Chest N/A Computed Radiogr aphy 10/20/2024 10:1 5 AM CDT Impressions 10/20/2024 10:15 AM CDT Pacer leads are intact. Poststernotomy changes. No pneumothorax or pleural effusion. Cardiac mediastinal silhouette within normal limits. Mild pulmonary vascular congestion. Electronically signed by: Jj Grubbs II, D.O. Narrative 10/20/2024 10:15 AM CDT EXAMINATION: XR CHEST 1 VIEW DATE: 10/20/2024 6:00 AM INDICATION: Cardiac surgery. COMPARISON: 10/19/2024. Procedure Note Jj Grubbs II, DO - 10/20/2024 EXAMINATION: XR CHEST 1 VIEW DATE: 10/20/2024 6:00 AM INDICATION: Cardiac surgery. COMPARISON: 10/19/2024. IMPRESSION: Pacer leads are intact. Poststernotomy changes. No pneumothorax or pleural effusion. Cardiac mediastinal silhouette within normal limits. Mild pulmonary vascular congestion. Electronically signed by: Jj Grubbs II, D.O. Guillermo Mayes MD IMG XR PROCEDURES Final Resu lt * (ABNORMAL) Calcium, ionized, whole blood (10/19/2024 1:29 PM CDT) Ca, ionized, bld 4.28(L) 4.50 - 5.10 mg/dL Blood 10/19/2024 1:29 PM CDT 10/19/2024 1:59 PM CDT Guillermo Mayes MD LAB BLOOD ORDERABLES Final R esult Performing Organization Address [facility]/ZIP Co de Phone Number NICOLE RAYGOZA [address] [address] [place] [address] * (ABNORMAL) eGFR (10/19/2024 1:29 PM CDT) eGFR 49(L) >=60 mL/min/1. 73 m2 Comment: Interpretive Data Reference Interval Normal >/= 90 mL/min/1.73m2 Mildly decreased* 60 - 89 mL/min/1.73m2 Mildly to moderately decreased 45 - 59 mL/min/1.73m2 Moderately to severely decreased 30 - 44 mL/min/1.73m2 Severely decreased 15 - 29 mL/min/1.73m2 Kidney Failure < 15 mL/min/1.73m2 *Relative to young adult level Estimated glomerular filtration rate is determined by the 2020 CKD-EPI equation recommended by the National Kidney Foundation (A Unifying Approach to GFR Estimation: Recommendations of the NKF-ASK Task Force on Reassessing the Inclusion of Race in Diagnosing Kidney Disease, JASN 2020). The CKD-EPI equation should not be used for patients with unstable renal function and has not been validated in children and those over 70. Current interpretive data was last reviewed 2021. Blood 10/19/2024 1:29 PM CDT 10/19/2024 2:00 PM CDT Guillermo Mayes MD LAB BLOOD ORDERABLES Final R esult NICOLE RAYGOZA [address] [address] Department [employer] [place], [place] [id number] * (ABNORMAL) CBC without differential (10/19/2024 1:29 PM CDT) WBC 10.8(H) 3.8 - 9.9 K/cumm Hgb 11.4(L) 13.0 - 17.5 g/dL [facility] Hct 33.8(L) 38.9 - 50.3 % [facility] Plt 153 150 - 400 K/cumm [facility] MPV 11.5 9.1 - 12.3 fL [facility] RBC 3.68(L) 4.30 - 5.80 M/cumm [facility] MCV 91.8 81.3 - 96.4 fL [facility] MCH 31.0 27.1 - 33.3 pg [facility] MCHC 33.7 32.3 - 35.7 g/dL [facility] RDW CV 16.3(H) 11.1 - 14.9 % [facility] RDW SD 48.6(H) 35.7 - 48.1 fL [facility] NRBC abs 0.10(H) 0.00 - 0.01 K/cumm [facility] Blood 10/19/2024 1:29 PM CDT 10/19/2024 2:00 PM CDT Guillermo Mayes MD LAB BLOOD ORDERABLES Final R esult Performing Organization Address City/[facility] Co de Phone Number NICOLE RAYGOZA [address] [address] [employer] [place], [place] [id number] * Magnesium (10/19/2024 1:29 PM CDT) Pathologist [facility] Magnesium 2.1 1.4 - 2.5 mg/dL Blood 10/19/2024 1:29 PM CDT 10/19/2024 2:00 PM CDT Guillermo Mayes MD LAB BLOOD ORDERABLES Final R esult Performing Organization Address City/[facility] Co de Phone Number NICOLE RAYGOZA [address] [address] Department of [employer] [place], [place] [id number] * (ABNORMAL) Basic metabolic panel (10/19/2024 1:29 PM CDT) Sodium 139 135 - 145 mmol/L Potassium, pl 3.8 3.3 - 4.9 mmol/L [facility] Chloride 102 97 - 110 mmol/L [facility] CO2 27 22 - 32 mmol/L [facility] Anion gap 10 2 - 15 mmol/L [facility] BUN 46(H) 6 - 25 mg/dL [facility] Creatinine 1.45(H) 0.80 - 1.30 mg/dL [facility] Comment:Icteric sample, test results may be affected. Glucose 134 70 - 199 mg/dL [facility] Comment: Interpretive Data Fasting glucose >/= 126 mg/dl is diagnostic for diabetes. Fasting is defined as no caloric intake for at least 8 hours. Fasting glucose between 100 mg/dl to 125 mg/dl is diagnostic of prediabetes. In a patient with classic symptoms of hyperglycemia or hyperglycemic crisis, a random glucose >/= 200 mg/dl is diagnostic for diabetes. In the absence of unequivocal hyperglycemia, results should be confirmed by repeat testing. The classification and Diagnosis of Diabetes Diabetes Care 2021; 46: S19-S40. Current interpretive data was last revised 2022. Calcium 8.3(L) 8.5 - 10.3 mg/dL [facility] Blood 10/19/2024 1:29 PM CDT 10/19/2024 2:00 PM CDT Guillermo Mayes MD LAB BLOOD ORDERABLES Final R esult [facility] [address] [address] Department [place] [address] * Hepatitis panel, acute Blood (10/19/2024 9:29 AM CDT) Hep A IgM Nonreactive Nonreactive Comment: Interpretive Data: If Hep A IgM Ab is reported as Equivocal, a new sample should be drawn in two weeks for testing. Current interpretive data was last revised on 19. Hep B core IgM Nonreactive Nonreactive [facility] Comment: Interpretive Data If HepB Core IgM Ab is reported as Equivocal, a new sample should be drawn in two weeks for testing. Current interpretive data was last revised on 19. Hep C Ab Nonreactive Nonreactive [facility] Comment: Interpretive Data Nonreactive: Antibodies to HCV not detected. Does NOT exclude the possibility of recent exposure to HCV. Equivocal: Equivocal for HCV antibodies. Supplemental molecular testing will be automatically performed to determine infection status in accordance with current CDC screening recommendations. Reactive: Positive for HCV antibodies. This may represent current or past HCV infection. Supplemental molecular testing will be automatically performed to determine current infection status in accordance with current CDC screening recommendations. Interpretive data was last revised on 2019. HepBsAg Nonreactive Nonreactive [facility] Blood 10/19/2024 9:29 AM CDT 10/19/2024 9:54 AM CDT Guillermo Mayes MD LAB MICROBIOLOGY - GENERAL O RDERABLES Final Result Performing Organization Address [facility] de Phone Number [facility] [address] [address] [place] [address] * (ABNORMAL) Protime-INR (10/19/2024 9:29 AM CDT) PT 13.5(H) 9.7 - 13.0 sec INR 1.24(H) 0.90 - 1.20 [facility] Comment: Interpretive data Oral anticoagulant therapeutic ranges: Venous thromboembolism prophylaxis or treatment: 2.0-3.0 CARDIOLOGY Standard range: 2.0-3.0 High-intensity range: 2.5-3.5 Refer to indication-specific guidelines for appropriate target ranges for prosthetic heart valve replacement. Current interpretive data was last revised on 2019. Blood 10/19/2024 9:29 AM CDT 10/19/2024 9:55 AM CDT Guillermo Mayes MD LAB BLOOD ORDERABLES Final R esult Performing Organization Address [facility] Co de Phone Number [facility] [address] [address] [employer] [place], [place] [phone] * (ABNORMAL) Hepatic function panel (10/19/2024 9:29 AM CDT) Bilirubin, total 2.5(H) 0.1 - 1.2 mg/dL Bilirubin, direct 0.4(H) 0.1 - 0.3 mg/dL [facility] Protein, pl 5.5(L) 6.5 - 8.5 g/dL [facility] Albumin 3.3(L) 3.5 - 5.0 g/dL [facility] Alk phos 97 40 - 130 Units/L [facility] ALT 864(H) 7 - 55 Units/L [facility] AST 171(H) 10 - 50 Units/L [facility] Blood 10/19/2024 9:29 AM CDT 10/19/2024 9:55 AM CDT us Guillermo Mayes MD LAB BLOOD ORDERABLES Final R esult NICOLE RAYGOZA [address] [address] Department [place] [address] * XR Chest 1 View - Portable - in AM (10/19/2024 4:54 AM CDT) Anatomical Region Laterality Modality Body, Chest N/A Computed Radiogr aphy 10/19/2024 10:2 8 AM CDT Impressions 10/19/2024 10:28 AM CDT Pacer leads are intact. No pneumothorax or pleural effusion. Poststernotomy changes noted. Cardiomediastinal silhouette within normal limits. Mild pulmonary vascular congestion. Electronically signed by: Jj Grubbs II, D.O. Narrative 10/19/2024 10:28 AM CDT EXAMINATION: XR CHEST 1 VIEW DATE: 10/19/2024 4:20 AM INDICATION: Cardiac surgery. COMPARISON: 10/18/2024. Procedure Note Jj Grubbs II, DO - 10/19/2024 EXAMINATION: XR CHEST 1 VIEW DATE: 10/19/2024 4:20 AM INDICATION: Cardiac surgery. COMPARISON: 10/18/2024. IMPRESSION: Pacer leads are intact. No pneumothorax or pleural effusion. Poststernotomy changes noted. Cardiomediastinal silhouette within normal limits. Mild pulmonary vascular congestion. Electronically signed by: Parvez Patino IIOPietro us Guillermo Mayes MD IMG XR PROCEDURES Final Resu lt * ECG 12 lead (10/19/2024 3:14 AM CDT) 10/19/2024 3:14 AM CDT Narrative [facility] - 10/19/2024 8:19 AM CDT Vent Rate: 88 bpm RR Interval: 679 msec LA Interval: 128 msec QRS Duration: 100 msec QT Interval: 374 msec QTC Interval: 419 msec P-R-T [place]: 26 - 17 - 30 degrees IMPRESSION: SINUS RHYTHM NONSPECIFIC INTRAVENTRICULAR CONDUCTION DELAY Electronically Signed By: Wily Murrieta MD, [facility] us Daisy Llamas MD ECG ORDERABLES Final Res ult [facility] * (ABNORMAL) eGFR (10/19/2024 2:59 AM CDT) eGFR 53(L) >=60 mL/min/1. 73 m2 Comment: Interpretive Data Reference Interval Normal >/= 90 mL/min/1.73m2 Mildly decreased* 60 - 89 mL/min/1.73m2 Mildly to moderately decreased 45 - 59 mL/min/1.73m2 Moderately to severely decreased 30 - 44 mL/min/1.73m2 Severely decreased 15 - 29 mL/min/1.73m2 Kidney Failure < 15 mL/min/1.73m2 *Relative to young adult level Estimated glomerular filtration rate is determined by the 2020 CKD-EPI equation recommended by the National Kidney Foundation (A Unifying Approach to GFR Estimation: Recommendations of the NKF-ASK Task Force on Reassessing the Inclusion of Race in Diagnosing Kidney Disease, JASN 2020). The CKD-EPI equation should not be used for patients with unstable renal function and has not been validated in children and those over 70. Current interpretive data was last reviewed 2021. Blood 10/19/2024 2:59 AM CDT 10/19/2024 3:07 AM CDT us Yvette Russell [employer] LAB BLOOD ORDERABLES Fin al Result Performing Organization Address City/[facility] Co de Phone Number NICOLE RAYGOZA [address] [address] [place] [address] * (ABNORMAL) CBC without differential (10/19/2024 2:59 AM CDT) WBC 11.2(H) 3.8 - 9.9 K/cumm Hgb 10.3(L) 13.0 - 17.5 g/dL [facility] Hct 31.1(L) 38.9 - 50.3 % [facility] Plt 142(L) 150 - 400 K/cumm [facility] MPV 11.4 9.1 - 12.3 fL [facility] RBC 3.42(L) 4.30 - 5.80 M/cumm [facility] MCV 90.9 81.3 - 96.4 fL [facility] MCH 30.1 27.1 - 33.3 pg [facility] MCHC 33.1 32.3 - 35.7 g/dL [facility] RDW CV 16.0(H) 11.1 - 14.9 % [facility] RDW SD 47.8 35.7 - 48.1 fL [facility] NRBC abs 0.10(H) 0.00 - 0.01 K/cumm [facility] Blood 10/19/2024 2:59 AM CDT 10/19/2024 3:08 AM CDT Guillermo Mayes MD LAB BLOOD ORDERABLES Final R esult NICOLE RAYGOZA [address] [place] [address] * (ABNORMAL) Phosphorus (10/19/2024 2:59 AM CDT) Phosphorus, pl 2.1(L) 2.3 - 4.5 mg/dL Blood 10/19/2024 2:59 AM CDT 10/19/2024 3:07 AM CDT Guillermo Mayes MD LAB BLOOD ORDERABLES Final R esult Performing Organization Address City/[facility] Co de Phone Number NICOLE RAYGOZA [address] [address] Department [place] [address] * Magnesium (10/19/2024 2:59 AM CDT) Pathologist [facility] Magnesium 2.2 1.4 - 2.5 mg/dL Blood 10/19/2024 2:59 AM CDT 10/19/2024 3:07 AM CDT Guillermo Mayes MD LAB BLOOD ORDERABLES Final R esult Performing Organization Address [facility] de Phone Number NICOLE RAYGOZA [address] [address] Department [place] [address] * (ABNORMAL) Basic metabolic panel (10/19/2024 2:59 AM CDT) Pathologist [facility] Sodium 139 135 - 145 mmol/L Potassium, pl 4.0 3.3 - 4.9 mmol/L [facility] Chloride 105 97 - 110 mmol/L [facility] CO2 25 22 - 32 mmol/L [facility] Anion gap 9 2 - 15 mmol/L [facility] BUN 51(H) 6 - 25 mg/dL [facility] Creatinine 1.35(H) 0.80 - 1.30 mg/dL [facility] Comment:Icteric sample, test results may be affected. Glucose 124 70 - 199 mg/dL [facility] Comment: Interpretive Data Fasting glucose >/= 126 mg/dl is diagnostic for diabetes. Fasting is defined as no caloric intake for at least 8 hours. Fasting glucose between 100 mg/dl to 125 mg/dl is diagnostic of prediabetes. In a patient with classic symptoms of hyperglycemia or hyperglycemic crisis, a random glucose >/= 200 mg/dl is diagnostic for diabetes. In the absence of unequivocal hyperglycemia, results should be confirmed by repeat testing. The classification and Diagnosis of Diabetes Diabetes Care 2021; 46: S19-S40. Current interpretive data was last revised 2022. Calcium 7.9(L) 8.5 - 10.3 mg/dL NICOLE Blood 10/19/2024 2:59 AM CDT 10/19/2024 3:07 AM CDT Guillermo Mayes MD LAB BLOOD ORDERABLES Final R esult NICOLE [address] Department [place] [address] * Clinical pathology report (10/18/2024 11:46 AM CDT) Miscellaneous 10/18/2024 11: 46 AM CDT 10/18/2024 11:46 AM CDT Narrative 10/18/2024 3:46 PM CDT EPIC results best viewed via link to PDF [facility] Department of Pathology [address] [place] [id number] Final Report Note to Patients: This report may contain a detailed description of human tissue sent by a health care provider to the laboratory for pathologic evaluation. The content of this report is essential for diagnosis and may provide important critical findings. This information may be unfamiliar to patients to review without a medical professional present. It is advised that the patient review this report in the presence of a health care provider who can answer questions and explain the details. Patient Name: TREVOR SHAW Address: [address] [place] [address] Gender: M : 1945 (Age: 79) Service: Cardiothoracic Location: [facility] #: [id number] Patient Type: IP Taken: 10/18/2024 Received: 10/18/2024 Accessioned: 10/18/2024 Physician(s): Jonathan Rodriguez M.D. Specimen(s) Received A: Blood Peripheral Blood Smear ReviewReported:10/18/2024 A peripheral blood smear is reviewed in conjunction with a CBC dated 10/18/24: WBC 14.67, RBC 3.38, Hgb 10.1, HCT 31.2, MCV 92.3, MCHC 32.4, PLT 173, RDW 15.3%. A peripheral blood manual differential on 200 cells shows: neutrophils 85%, lymphocytes 9%, monocytes 3%, eosinophils 1%, metamyelocytes 2%. Red blood cells are decreased in number and normocytic. There is no significant schistocytosis. There is mild anisopoikilocytosis with subtle polychromasia. Scattered nucleated red blood cells are seen (7/100 WBCs). Platelets are decreased in number with normal size and granularity. Platelet clumps are not seen. White blood cells are increased in number with an absolute neutrophilia. Neutrophils exhibit predominantly appropriate nuclear segmentation and granularity. Rare metamyelocytes are seen. Lymphocytes show a range of morphologies from small mature forms to occasional large granular forms. Monocytes show unremarkable morphology. Interpretation: Peripheral blood, manual smear review: - Normocytic anemia with scattered nucleated red blood cells. - Leukocytosis with absolute neutrophilia. - See comment. COMMENT: The leukocytosis with absolute neutrophilia is confirmed. This finding is nonspecific. A normocytic anemia is also identified with subtle polychromasia and scattered nucleated red blood cells (7/100 WBCs). These latter findings are nonspecific but may be caused by ineffective erythropoiesis, marrow damage/stress secondary to inflammation, decreased tissue oxygenation, and/or primary alterations of hematopoiesis. A hemolytic process should also be excluded via correlation with pertinent laboratory studies, e.g. haptoglobin, LDH, YVON, indirect bilirubin, etc. Recommend correlation with clinical findings and follow-up as clinically indicated. Intradepartmental consultation: This case was also reviewed by Dr. Negron, who concurs with the above findings. Babar Story MDReport Electronically Reviewed and Signed Out By Babar Story MD 10/18/2024 15:43:52 The performance characteristics of some immunohistochemical stains, fluorescence in-situ hybridization tests and immunophenotyping by flow cytometry cited in this report (if any) were determined by the Surgical Pathology Department at [facility] as part of an ongoing quality control supervisor program and in compliance with federally mandated regulations drawn from the Clinical Laboratory Improvement Act of 1988 (CLIA '88). Some of these tests rely on the use of analyte specific reagents and are subject to specific labeling requirements by the US Food and Drug Administration. Such diagnostic tests may only be performed in a facility that is certified by the Department of Health and Human Services as a high complexity laboratory under CLIA '88. The FDA has determined that such clearance or approval is not necessary. This test is used for clinical purposes. It should not be regarded as investigational or for research. Nevertheless, federal rules concerning the medical use of analyte specific reagents require that the following disclaimer be attached to the report: This test was developed and its performance characteristics determined by the Surgical Pathology Department [facility]. It has not been cleared or approved by the U. S. Food and Drug Administration. REPORT IMAGES AND SCANNED DOCUMENTS, IF INCLUDED, ONLY VIEWABLE IN PDF VERSION OF REPORTe o us Jonathan Rodriguez MD LAB PATHOLOGY ORDERABLES Final Result * Lactate (10/18/2024 6:50 AM CDT) Lactate 1.4 0.7 - 2.0 mmol/L Blood 10/18/2024 6:50 AM CDT 10/18/2024 6:51 AM CDT Guillermo Mayes MD LAB BLOOD ORDERABLES Final R esult [facility] [address] [facility] Department of Laboratories [place] [phone] * XR Chest 1 View - Portable - in AM (10/18/2024 5:17 AM CDT) Anatomical Region Laterality Modality Body, Chest N/A Computed Radiogr aphy 10/18/2024 11:5 1 AM CDT Impressions 10/18/2024 11:51 AM CDT Pacer leads are intact. No pneumothorax. Small bilateral pleural effusions. Cardiac mediastinal silhouette within normal limits. Mild pulmonary vascular congestion. No acute osseous abnormality. Electronically signed by: Jj Grubbs II, D.O. Narrative 10/18/2024 11:51 AM CDT EXAMINATION: XR CHEST 1 VIEW DATE: 10/18/2024 4:35 AM INDICATION: Cardiac surgery. COMPARISON: 02/18/2025. Procedure Note Jj Grubbs II, DO - 10/18/2024 EXAMINATION: XR CHEST 1 VIEW DATE: 10/18/2024 4:35 AM INDICATION: Cardiac surgery. COMPARISON: 02/18/2025. IMPRESSION: Pacer leads are intact. No pneumothorax. Small bilateral pleural effusions. Cardiac mediastinal silhouette within normal limits. Mild pulmonary vascular congestion. No acute osseous abnormality. Electronically signed by: Jj Grubbs II, D.O. us Guillermo Mayes MD IMG XR PROCEDURES Final Resu lt * (ABNORMAL) eGFR (10/18/2024 3:32 AM CDT) eGFR 34(L) >=60 mL/min/1. 73 m2 Comment: Interpretive Data Reference Interval Normal >/= 90 mL/min/1.73m2 Mildly decreased* 60 - 89 mL/min/1.73m2 Mildly to moderately decreased 45 - 59 mL/min/1.73m2 Moderately to severely decreased 30 - 44 mL/min/1.73m2 Severely decreased 15 - 29 mL/min/1.73m2 Kidney Failure < 15 mL/min/1.73m2 *Relative to young adult level Estimated glomerular filtration rate is determined by the 2020 CKD-EPI equation recommended by the National Kidney Foundation (A Unifying Approach to GFR Estimation: Recommendations of the NKF-ASK Task Force on Reassessing the Inclusion of Race in Diagnosing Kidney Disease, JASN 2020). The CKD-EPI equation should not be used for patients with unstable renal function and has not been validated in children and those over 70. Current interpretive data was last reviewed 2021. Blood 10/18/2024 3:32 AM CDT 10/18/2024 3:35 AM CDT us Yvette Russell NP LAB BLOOD ORDERABLES Fin al Result NICOLE IDALMIS [address] [address] Department [place] [address] * (ABNORMAL) CBC without differential (10/18/2024 3:32 AM CDT) WBC 14.9(H) 3.8 - 9.9 K/cumm Hgb 10.1(L) 13.0 - 17.5 g/dL [facility] Hct 30.3(L) 38.9 - 50.3 % [facility] Plt 150 150 - 400 K/cumm [facility] MPV 11.5 9.1 - 12.3 fL [facility] RBC 3.30(L) 4.30 - 5.80 M/cumm [facility] MCV 91.8 81.3 - 96.4 fL [facility] MCH 30.6 27.1 - 33.3 pg [facility] MCHC 33.3 32.3 - 35.7 g/dL [facility] RDW CV 15.3(H) 11.1 - 14.9 % [facility] RDW SD 48.7(H) 35.7 - 48.1 fL [facility] NRBC abs 0.38(H) 0.00 - 0.01 K/cumm [facility] CH Blood 10/18/2024 3:32 AM CDT 10/18/2024 3:35 AM CDT Guillermo Mayes MD LAB BLOOD ORDERABLES Final R esult [facility] [address] [address] [place] [address] * Phosphorus (10/18/2024 3:32 AM CDT) Phosphorus, pl 3.2 2.3 - 4.5 mg/dL Blood 10/18/2024 3:32 AM CDT 10/18/2024 3:35 AM CDT Guillermo Mayes MD LAB BLOOD ORDERABLES Final R esult NICOLE RAYGO[facility] [address] [facility] [employer] [place], [place] [id number] * Magnesium (10/18/2024 3:32 AM CDT) Magnesium 2.3 1.4 - 2.5 mg/dL Blood 10/18/2024 3:32 AM CDT 10/18/2024 3:35 AM CDT Guillermo Mayes MD LAB BLOOD ORDERABLES Final R esult Performing Organization Address [facility] Co de Phone Number NICOLE RAYGOZA [address] [address] [place] [address] * (ABNORMAL) Lactate dehydrogenase (LD) (10/18/2024 3:32 AM CDT) Lactate dehydrogenase (LDH) 672(H) 100 - 250 Units/L Comment:Hemolysis present. R esults may be affected. Blood 10/18/2024 3:32 AM CDT 10/18/2024 6:38 AM CDT Jonathan Rodriguez MD LAB BLOOD ORDERABLES Final Resu lt Performing Organization Address [facility] de Phone Number NICOLE [address] [address] [place] [address] * (ABNORMAL) Haptoglobin (10/18/2024 3:32 AM CDT) Haptoglobin <10(L) 30 - 200 mg/dL Comment:Hemolysis present. R esults may be affected. Blood 10/18/2024 3:32 AM CDT 10/18/2024 6:38 AM CDT Jonathan Rodriguez MD LAB BLOOD ORDERABLES Final Resu lt Performing Organization Address [facility] de Phone Number NICOLE [address] [address] [place] [address] * (ABNORMAL) Hepatic function panel (10/18/2024 3:32 AM CDT) Bilirubin, total 1.1 0.1 - 1.2 mg/dL Bilirubin, direct 0.4(H) 0.1 - 0.3 mg/dL [facility] Protein, pl 5.6(L) 6.5 - 8.5 g/dL [facility] Albumin 3.4(L) 3.5 - 5.0 g/dL [facility] Alk phos 98 40 - 130 Units/L [facility] ALT 1,579(H) 7 - 55 Units/L [facility] AST 700(H) 10 - 50 Units/L [facility] Blood 10/18/2024 3:32 AM CDT 10/18/2024 3:27 PM CDT us Jonathan Rodriguez MD LAB BLOOD ORDERABLES Final Resu lt [facility] [address] Department [place] [address] * (ABNORMAL) Basic metabolic panel (10/18/2024 3:32 AM CDT) Sodium 140 135 - 145 mmol/L Potassium, pl 3.9 3.3 - 4.9 mmol/L [facility] Chloride 102 97 - 110 mmol/L [facility] CO2 25 22 - 32 mmol/L [facility] Anion gap 13 2 - 15 mmol/L [facility] BUN 70(H) 6 - 25 mg/dL [facility] Creatinine 1.94(H) 0.80 - 1.30 mg/dL [facility] Glucose 120 70 - 199 mg/dL [facility] Comment: Interpretive Data Fasting glucose >/= 126 mg/dl is diagnostic for diabetes. Fasting is defined as no caloric intake for at least 8 hours. Fasting glucose between 100 mg/dl to 125 mg/dl is diagnostic of prediabetes. In a patient with classic symptoms of hyperglycemia or hyperglycemic crisis, a random glucose >/= 200 mg/dl is diagnostic for diabetes. In the absence of unequivocal hyperglycemia, results should be confirmed by repeat testing. The classification and Diagnosis of Diabetes Diabetes Care 2021; 46: S19-S40. Current interpretive data was last revised 2022. Calcium 8.5 8.5 - 10.3 mg/dL [facility] Blood 10/18/2024 3:32 AM CDT 10/18/2024 3:35 AM CDT us Guillermo Mayes MD LAB BLOOD ORDERABLES Final R esult Performing Organization Address City/[facility]/ZIP Co de Phone Number NICOLE RAYGOZA [address] [address] [facility] [place] [address] * POCT glucose (10/17/2024 6:21 PM CDT) Glucose, POC 125 70 - 199 mg/dL Blood 10/17/2024 6:21 PM CDT 10/17/2024 6:21 PM CDT Guillermo Mayes MD LAB POCT ORDERABLES - DEVICE Final Result Performing Organization Address [facility] Co de Phone Number NICOLE RAYGOZA [address] [address] [place] [address] * (ABNORMAL) Calcium, ionized, whole blood (10/17/2024 6:00 PM CDT) Ca, ionized, bld 4.22(L) 4.50 - 5.10 mg/dL Blood 10/17/2024 6:00 PM CDT 10/17/2024 6:11 PM CDT Guillermo Mayes MD LAB BLOOD ORDERABLES Final R esult Performing Organization Address [facility] Co de Phone Number NICOLE RAYGOZA [address] [address] Department [employer] [place], [place] [id number] * (ABNORMAL) eGFR (10/17/2024 6:00 PM CDT) eGFR 31(L) >=60 mL/min/1. 73 m2 Comment: Interpretive Data Reference Interval Normal >/= 90 mL/min/1.73m2 Mildly decreased* 60 - 89 mL/min/1.73m2 Mildly to moderately decreased 45 - 59 mL/min/1.73m2 Moderately to severely decreased 30 - 44 mL/min/1.73m2 Severely decreased 15 - 29 mL/min/1.73m2 Kidney Failure < 15 mL/min/1.73m2 *Relative to young adult level Estimated glomerular filtration rate is determined by the 2020 CKD-EPI equation recommended by the National Kidney Foundation (A Unifying Approach to GFR Estimation: Recommendations of the NKF-ASK Task Force on Reassessing the Inclusion of Race in Diagnosing Kidney Disease, JASN 2020). The CKD-EPI equation should not be used for patients with unstable renal function and has not been validated in children and those over 70. Current interpretive data was last reviewed 2021. Blood 10/17/2024 6:00 PM CDT 10/17/2024 6:16 PM CDT us Guillermo Mayes MD LAB BLOOD ORDERABLES Final R esult NICOLE [address] [address] Department [place] [address] * (ABNORMAL) CBC with auto differential (10/17/2024 6:00 PM CDT) WBC 15.4(H) 3.8 - 9.9 K/cumm Hgb 9.9(L) 13.0 - 17.5 g/dL [facility] Hct 29.5(L) 38.9 - 50.3 % [facility] Plt 156 150 - 400 K/cumm [facility] MPV 12.0 9.1 - 12.3 fL [facility] RBC 3.24(L) 4.30 - 5.80 M/cumm [facility] MCV 91.0 81.3 - 96.4 fL [facility] MCH 30.6 27.1 - 33.3 pg [facility] MCHC 33.6 32.3 - 35.7 g/dL [facility] RDW CV 15.2(H) 11.1 - 14.9 % [facility] RDW SD 48.6(H) 35.7 - 48.1 fL [facility] NRBC abs 0.64(H) 0.00 - 0.01 K/cumm [facility] Blood 10/17/2024 6:00 PM CDT 10/17/2024 6:11 PM CDT us Guillermo Mayes MD LAB BLOOD ORDERABLES Edited Result - Final NICOLE RAYGOZA [address] [address] [place] [address] * (ABNORMAL) Manual Differential (10/17/2024 6:00 PM CDT) Differential Manual Cells Counted 100 [facility] Neutrophil abs 14.3(H) 1.5 - 6.5 K/cumm [facility] Imm gran abs 0.3(H) 0.0 - 0.1 K/cumm [facility] Lymphocyte abs 0.8 0.8 - 3.3 K/cumm [facility] Monocyte abs 0.0(L) 0.2 - 0.8 K/cumm [facility] Neutrophil pct 89.0 % [facility] Comment: Interpretive Data Percent cell count reference ranges are not reported, since discordance with absolute values may lead to misinterpretation of CBC data. Current Interpretive Data was last revised on 2017. Lymphocyte pct 5.0 % [facility] Comment: Interpretive Data Percent cell count reference ranges are not reported, since discordance with absolute values may lead to misinterpretation of CBC data. Current Interpretive Data was last revised on 2017. Band Neutrophil pct 4.0 0.0 - 5.0 % [facility] Metamyelocyte pct 2.0(H) 0.0 - 0.0 % [facility] RBC morphology Consistent with RBC Indicies [facility] Platelet estimate Adequate [facility] Blood 10/17/2024 6:00 PM CDT 10/17/2024 6:13 PM CDT us Guillermo Mayes MD LAB BLOOD ORDERABLES Final R esult NICOLE RAYGOZA [address] [address] [place] [address] * Phosphorus (10/17/2024 6:00 PM CDT) Pathologist [facility] Phosphorus, pl 3.9 2.3 - 4.5 mg/dL Blood 10/17/2024 6:00 PM CDT 10/17/2024 6:11 PM CDT Guillermo Mayes MD LAB BLOOD ORDERABLES Final R esult NICOLE RAYGOZA [address] [address] [place] [address] * Magnesium (10/17/2024 6:00 PM CDT) Magnesium 2.4 1.4 - 2.5 mg/dL Blood 10/17/2024 6:00 PM CDT 10/17/2024 6:11 PM CDT Guillermo Mayes MD LAB BLOOD ORDERABLES Final R esult Performing Organization Address [facility] de Phone Number NICOLE RAYGOZA [address] [address] [facility] [place] [address] * (ABNORMAL) Blood gas, arterial (10/17/2024 6:00 PM CDT) pH, Art 7.44 7.35 - 7.45 PCO2, Arterial 36 35 - 45 mmHg [facility] PO2, Arterial 119(H) 83 - 108 mmHg [facility] HCO3 Art (Calculated) 25 20 - 30 mmol/L [facility] BE, art 0 mmol/L [facility] Comment: Interpretive Data No Reference Range Established Current Interpretive Data was last revised on 2017 O2 Sat Art (Measured) 98(H) 90 - 95 % [facility] Blood 10/17/2024 6:00 PM CDT 10/17/2024 6:11 PM CDT Guillermo Mayes MD LAB BLOOD ORDERABLES Final R esult Performing Organization Address [facility] Co de Phone Number NICOLE RAYGOZA [address] [address] [facility] [place] [address] * (ABNORMAL) Basic metabolic panel (10/17/2024 6:00 PM CDT) Sodium 139 135 - 145 mmol/L Potassium, pl 3.7 3.3 - 4.9 mmol/L [facility] Chloride 102 97 - 110 mmol/L [facility] CO2 23 22 - 32 mmol/L [facility] Anion gap 14 2 - 15 mmol/L [facility] BUN 79(H) 6 - 25 mg/dL [facility] Creatinine 2.09(H) 0.80 - 1.30 mg/dL [facility] Glucose 118 70 - 199 mg/dL [facility] Comment: Interpretive Data Fasting glucose >/= 126 mg/dl is diagnostic for diabetes. Fasting is defined as no caloric intake for at least 8 hours. Fasting glucose between 100 mg/dl to 125 mg/dl is diagnostic of prediabetes. In a patient with classic symptoms of hyperglycemia or hyperglycemic crisis, a random glucose >/= 200 mg/dl is diagnostic for diabetes. In the absence of unequivocal hyperglycemia, results should be confirmed by repeat testing. The classification and Diagnosis of Diabetes Diabetes Care 2021; 46: S19-S40. Current interpretive data was last revised 2022. Calcium 8.1(L) 8.5 - 10.3 mg/dL [facility] Blood 10/17/2024 6:00 PM CDT 10/17/2024 6:11 PM CDT Guillermo Mayes MD LAB BLOOD ORDERABLES Final R esult [address] Department [place] [address] * TRANSTHORACIC ECHO (TTE) LIMITED/FOLLOW UP W LTD DOPPLER/CF WO CONTRAST (10/17/2024 9:24 AM CDT) Anatomical Region Laterality Modality Ultrasound 10/17/2024 9:00 AM CDT Narrative 10/17/2024 1:24 [place] [address] Limited Echocardiogram Report Patient Name: TREVOR SHAW : 1945 Study Date: 10/17/2024 9:00:17 AM Gender: M Tech: Location: [id number] Ref Provider: GUILLERMO MAYES Height(Cm): 182 BSA: 2.43 Weight(Kg): 117 Heart Rate: 85 BP: 97/56 Quality: Technically Difficult Study Order Provider: GUILLERMO MAYES PROCEDURES: Echocardiographic Report: Limited transthoracic echocardiogram with 2D and color Doppler. INDICATIONS: Pericardial Effusion. FINDINGS: Left Ventricle: Normal left ventricular size. Left ventricle not well visualized. Left ventricular systolic function at the lower limit of normal. Right Ventricle: Linear artifact in right ventricle suggestive of catheter(s), pacemaker lead(s), or ICD lead(s). Right Atrium: Linear artifact in right atrium suggestive of catheter(s), pacemaker lead(s), or ICD lead(s). Aortic Valve: Normal appearing aortic valve bioprosthesis. Mitral Valve: Moderate mitral annular calcification. Pericardium: Moderate pericardial effusion. No echocardiographic evidence to suggest pericardial tamponade. CONCLUSIONS: Normal left ventricular size. Left ventricle not well visualized. Left ventricular systolic function at the lower limit of normal. Linear artifact in right ventricle suggestive of catheter(s), pacemaker lead(s), or ICD lead(s). Moderate mitral annular calcification. Normal appearing aortic valve bioprosthesis. Moderate pericardial effusion. No echocardiographic evidence to suggest pericardial tamponade. Electronically Signed By: Boris Zaragoza MD, [facility] 10/17/2024 1:24:06 PM CDT Procedure Note Boris Zaragoza MD - 10/17/2024 [place] [address] Limited Echocardiogram Report Patient Name: TREVOR SHAW : 1945 Study Date: 10/17/2024 9:00:17 AM Gender: M Tech: Location: [id number] Ref Provider: GUILLERMO MAYES Height(Cm): 182 BSA: 2.43 Weight(Kg): 117 Heart Rate: 85 BP: 97/56 Quality: Technically Difficult Study Order Provider: GUILLERMO MAYES PROCEDURES: Echocardiographic Report: Limited transthoracic echocardiogram with 2D and color Doppler. INDICATIONS: Pericardial Effusion. FINDINGS: Left Ventricle: Normal left ventricular size. Left ventricle not well visualized. Leftventricular systolic function at the lower limit of normal. Right Ventricle: Linear artifact in right ventricle suggestive of catheter(s), pacemakerlead(s), or ICD lead(s). Right Atrium: Linear artifact in right atrium suggestive of catheter(s), pacemakerlead(s), or ICD lead(s). Aortic Valve: Normal appearing aortic valve bioprosthesis. Mitral Valve: Moderate mitral annular calcification. Pericardium: Moderate pericardial effusion. No echocardiographic evidence to suggestpericardial tamponade. CONCLUSIONS: Normal left ventricular size. Left ventricle not well visualized. Leftventricular systolic function at the lower limit of normal. Linear artifact in right ventricle suggestive of catheter(s), pacemakerlead(s), or ICD lead(s). Moderate mitral annular calcification. Normal appearing aortic valve bioprosthesis. Moderate pericardial effusion. No echocardiographic evidence to suggestpericardial tamponade. Electronically Signed By: Boris Zaragoza MD, [facility] 10/17/2024 1:24:06 PM CDT us Guillermo Mayes MD CV ECHO PROCEDURES Final Res ult * Calcium, ionized, whole blood (10/17/2024 8:03 AM CDT) Ca, ionized, bld 4.51 4.50 - 5.10 mg/dL Blood 10/17/2024 8:03 AM CDT 10/17/2024 8:19 AM CDT Angelica Hagan [employer] LAB BLOOD ORDERABLES Final Result NICOLE RAYGOZA [address] [address] [place] [address] * (ABNORMAL) eGFR (10/17/2024 8:03 AM CDT) eGFR 26(L) >=60 mL/min/1. 73 m2 Comment: Interpretive Data Reference Interval Normal >/= 90 mL/min/1.73m2 Mildly decreased* 60 - 89 mL/min/1.73m2 Mildly to moderately decreased 45 - 59 mL/min/1.73m2 Moderately to severely decreased 30 - 44 mL/min/1.73m2 Severely decreased 15 - 29 mL/min/1.73m2 Kidney Failure < 15 mL/min/1.73m2 *Relative to young adult level Estimated glomerular filtration rate is determined by the 2020 CKD-EPI equation recommended by the National Kidney Foundation (A Unifying Approach to GFR Estimation: Recommendations of the NKF-ASK Task Force on Reassessing the Inclusion of Race in Diagnosing Kidney Disease, JASN 2020). The CKD-EPI equation should not be used for patients with unstable renal function and has not been validated in children and those over 70. Current interpretive data was last reviewed 2021. Blood 10/17/2024 8:03 AM CDT 10/17/2024 8:22 AM CDT Angelica Hagan [employer] LAB BLOOD ORDERABLES Final Result NICOLE RAYGOZA [address] [address] [place] [address] * Magnesium (10/17/2024 8:03 AM CDT) Magnesium 2.4 1.4 - 2.5 mg/dL Blood 10/17/2024 8:03 AM CDT 10/17/2024 8:22 AM CDT Angelica Hagan [employer] LAB BLOOD ORDERABLES Final Result NICOLE RAYGOZA [address] Department [place] [address] * (ABNORMAL) Basic metabolic panel (10/17/2024 8:03 AM CDT) Pathologist [facility] Sodium 139 135 - 145 mmol/L Potassium, pl 4.3 3.3 - 4.9 mmol/L [facility] Chloride 100 97 - 110 mmol/L [facility] CO2 21(L) 22 - 32 mmol/L [facility] Anion gap 18(H) 2 - 15 mmol/L [facility] BUN 84(H) 6 - 25 mg/dL [facility] Creatinine 2.42(H) 0.80 - 1.30 mg/dL [facility] Glucose 142 70 - 199 mg/dL [facility] Comment: Interpretive Data Fasting glucose >/= 126 mg/dl is diagnostic for diabetes. Fasting is defined as no caloric intake for at least 8 hours. Fasting glucose between 100 mg/dl to 125 mg/dl is diagnostic of prediabetes. In a patient with classic symptoms of hyperglycemia or hyperglycemic crisis, a random glucose >/= 200 mg/dl is diagnostic for diabetes. In the absence of unequivocal hyperglycemia, results should be confirmed by repeat testing. The classification and Diagnosis of Diabetes Diabetes Care 2021; 46: S19-S40. Current interpretive data was last revised 2022. Calcium 8.3(L) 8.5 - 10.3 mg/dL [facility] Blood 10/17/2024 8:03 AM CDT 10/17/2024 8:22 AM CDT Angelica Hagan [employer] LAB BLOOD ORDERABLES Final Result Performing Organization Address City/[facility]/ZIP Co de Phone Number NICOLE RAYGOZA [address] [address] Department [place] [address] * (ABNORMAL) Lactate (10/17/2024 6:41 AM CDT) Lactate 2.2(H) 0.7 - 2.0 mmol/L Blood 10/17/2024 6:41 AM CDT 10/17/2024 6:45 AM CDT Daisy Llamas MD LAB BLOOD ORDERABLES Kamla l Result NICOLE RAYGOZA [address] [address] [place] [address] * (ABNORMAL) CBC without differential (10/17/2024 6:41 AM CDT) WBC 15.8(H) 3.8 - 9.9 K/cumm Hgb 9.7(L) 13.0 - 17.5 g/dL [facility] Hct 29.4(L) 38.9 - 50.3 % [facility] Plt 160 150 - 400 K/cumm [facility] MPV 11.9 9.1 - 12.3 fL [facility] RBC 3.24(L) 4.30 - 5.80 M/cumm [facility] MCV 90.7 81.3 - 96.4 fL [facility] MCH 29.9 27.1 - 33.3 pg [facility] MCHC 33.0 32.3 - 35.7 g/dL [facility] RDW CV 15.0(H) 11.1 - 14.9 % [facility] RDW SD 47.9 35.7 - 48.1 fL [facility] NRBC abs 0.87(H) 0.00 - 0.01 K/cumm [facility] Blood 10/17/2024 6:41 AM CDT 10/17/2024 6:47 AM CDT Daisy Llamas MD LAB BLOOD ORDERABLES Kamla l Result NICOLE RAYGOZA [address] [address] [facility] [place] [address] * (ABNORMAL) Lactate (10/17/2024 5:51 AM CDT) Lactate 2.5(H) 0.7 - 2.0 mmol/L Blood 10/17/2024 5:51 AM CDT 10/17/2024 5:53 AM CDT Daisy Llamas MD LAB BLOOD ORDERABLES Kamla l Result Performing Organization Address City/[facility] Co de Phone Number NICOLE [address] [place] [address] * (ABNORMAL) CBC without differential (10/17/2024 5:51 AM CDT) Pathologist [facility] WBC 15.8(H) 3.8 - 9.9 K/cumm Hgb 9.7(L) 13.0 - 17.5 g/dL [facility] Hct 29.1(L) 38.9 - 50.3 % [facility] Plt 162 150 - 400 K/cumm [facility] MPV 11.9 9.1 - 12.3 fL [facility] RBC 3.20(L) 4.30 - 5.80 M/cumm [facility] MCV 90.9 81.3 - 96.4 fL [facility] MCH 30.3 27.1 - 33.3 pg [facility] MCHC 33.3 32.3 - 35.7 g/dL [facility] RDW CV 15.0(H) 11.1 - 14.9 % [facility] RDW SD 48.3(H) 35.7 - 48.1 fL [facility] NRBC abs 0.85(H) 0.00 - 0.01 K/cumm [facility] Blood 10/17/2024 5:51 AM CDT 10/17/2024 5:53 AM CDT Daisy Llamas MD LAB BLOOD ORDERABLES Kamla l Result Performing Organization Address City/[facility]/ZIP Co de Phone Number NICOLE [address] Department [employer] [place], [place] [id number] * Vancomycin level random (10/17/2024 4:57 AM CDT) Pathologist [facility] Vancomycin random 17.5 mcg/mL Comment: Interpretive Data No reference ranges have been established for random drug levels. Current Interpretive Data was last revised on 2020. Blood 10/17/2024 4:57 AM CDT 10/17/2024 11:47 AM CDT Guillermo Mayes MD LAB BLOOD ORDERABLES Final R esult NICOLE RAYGOZA [address] [address] Department [place] [address] * XR Chest 1 View - Portable - in AM (10/17/2024 4:56 AM CDT) Anatomical Region Laterality Modality Body, Chest N/A Computed Radiogr aphy 10/17/2024 9:27 AM CDT Impressions 10/17/2024 9:27 AM CDT Pacer leads are intact. Poststernotomy changes. No pneumothorax or pleural effusion. Mild cardiomegaly with pulmonary vascular congestion and prominence of interstitial markings in the perihilar region bilaterally suggestive of interstitial pulmonary edema, increased from prior. Electronically signed by: Jj Grubbs II, D.O. Narrative 10/17/2024 9:27 AM CDT EXAMINATION: XR CHEST 1 VIEW DATE: 10/17/2024 4:15 AM INDICATION: Cardiac surgery. COMPARISON: 10/16/2024. Procedure Note Jj Grubbs II, DO - 10/17/2024 EXAMINATION: XR CHEST 1 VIEW DATE: 10/17/2024 4:15 AM INDICATION: Cardiac surgery. COMPARISON: 10/16/2024. IMPRESSION: Pacer leads are intact. Poststernotomy changes. No pneumothorax or pleural effusion. Mild cardiomegaly with pulmonary vascular congestion and prominence of interstitial markings in the perihilar region bilaterally suggestive of interstitial pulmonary edema, increased from prior. Electronically signed by: Jj Grubbs II, D.O. Guillermo Mayes MD IMG XR PROCEDURES Final Resu lt * Transfuse RBC (10/17/2024 2:04 AM CDT) Blood us Guillermo Mayes MD BLOOD TRANSFUSION ORDERABLES Final Result Performing Organization Address [facility] Co de Phone Number NICOLE RAYGOZA [address] [address] Department [place] [address] * (ABNORMAL) CBC without differential (10/16/2024 9:31 PM CDT) WBC 18.4(H) 3.8 - 9.9 K/cumm Hgb 9.7(L) 13.0 - 17.5 g/dL [facility] Hct 29.2(L) 38.9 - 50.3 % [facility] Plt 198 150 - 400 K/cumm [facility] MPV 11.9 9.1 - 12.3 fL [facility] RBC 3.22(L) 4.30 - 5.80 M/cumm [facility] MCV 90.7 81.3 - 96.4 fL [facility] MCH 30.1 27.1 - 33.3 pg [facility] MCHC 33.2 32.3 - 35.7 g/dL [facility] RDW CV 14.7 11.1 - 14.9 % [facility] RDW SD 47.2 35.7 - 48.1 fL [facility] NRBC abs 1.34(H) 0.00 - 0.01 K/cumm [facility] Blood 10/16/2024 9:31 PM CDT 10/16/2024 9:45 PM CDT us Daisy Llamas MD LAB BLOOD ORDERABLES Kamla l Result NICOLE RAYGOZA [address] [address] [place] [address] * Critical Care (10/16/2024 8:44 PM CDT) Narrative Daisy Llamas MD - 10/16/2024 8:44 PM CDT Daisy Llamas MD 10/17/2024 5:38 AM Critical Care Performed by: Daisy Llamas MD Authorized by: Daisy Llamas MD CRITICAL CARE: Team: JUDY Shift: PM Level of Billing: Critical Care My time spent with this patient was 32 minutes: Critical Provider Statement: I have seen and examined the patient on this day of service. I have reviewed and confirmed the history, physical exam, laboratory and radiologic data as documented in the signed ICU note. I have reviewed and discussed my treatment plan with the ICU team and other medical/medical consultant staff, making frequent assessments and decisions regarding this patient's complex medical care. Critical Care time was exclusive of time spent performing separately billed procedures, treating other patients, and teaching. This time was in addition to and separate from critical care provided by other practitioners in my group on this day of service. Critical Care was necessary to treat or prevent imminent or life-threatening deterioration of the following conditions: Undifferentiated shock This time was spent by me doing the following: Serial bedside patient exams and Serial laboratory checks Initiation/active titration of vasoactive medications Active and frequent monitoring of intake/output and volumen status I spent time reviewing and interpreting data from bedside monitors, laboratory results, and imaging, I spent time discussing the management of this critically ill patient with consultants and the medical staff and I spent time documenting in the medical record Daisy Llamas MD IN CLINIC/BEDSIDE ORDERAB LES Final Result * POCT glucose (10/16/2024 8:12 PM CDT) Glucose, POC 146 70 - 199 mg/dL Blood 10/16/2024 8:12 PM CDT 10/16/2024 8:12 PM CDT Guillermo Mayes MD LAB POCT ORDERABLES - DEVICE Final Result [facility] [address] [address] Department [place] [address] * Transfuse RBC (10/16/2024 7:30 PM CDT) Blood Guillermo Mayes MD BLOOD TRANSFUSION ORDERABLES Final Result NICOLE RAYGOZA [address] [address] [place] [address] * Transfuse RBC (10/16/2024 4:09 PM CDT) Blood us Angelica Hagan [employer] BLOOD TRANSFUSION ORDERABLE S Final Result Performing Organization Address City/[facility] Co de Phone Number NICOLE RAYGOZA [address] [address] Department of [employer] [place], [place] [id number] * (ABNORMAL) eGFR (10/16/2024 2:38 PM CDT) eGFR 27(L) >=60 mL/min/1. 73 m2 Comment: Interpretive Data Reference Interval Normal >/= 90 mL/min/1.73m2 Mildly decreased* 60 - 89 mL/min/1.73m2 Mildly to moderately decreased 45 - 59 mL/min/1.73m2 Moderately to severely decreased 30 - 44 mL/min/1.73m2 Severely decreased 15 - 29 mL/min/1.73m2 Kidney Failure < 15 mL/min/1.73m2 *Relative to young adult level Estimated glomerular filtration rate is determined by the 2020 CKD-EPI equation recommended by the National Kidney Foundation (A Unifying Approach to GFR Estimation: Recommendations of the NKF-ASK Task Force on Reassessing the Inclusion of Race in Diagnosing Kidney Disease, JASN 2020). The CKD-EPI equation should not be used for patients with unstable renal function and has not been validated in children and those over 70. Current interpretive data was last reviewed 2021. Blood 10/16/2024 2:38 PM CDT 10/16/2024 2:38 PM CDT us Guillermo Mayes MD LAB BLOOD ORDERABLES Final R esult NICOLE RAYGOZA [id number] [address] Manuel Department of [employer] [place], [place] [id number] * (ABNORMAL) CBC without differential (10/16/2024 2:38 PM CDT) WBC 21.1(H) 3.8 - 9.9 K/cumm Hgb 7.8(L) 13.0 - 17.5 g/dL [facility] Hct 23.5(L) 38.9 - 50.3 % [facility] Plt 201 150 - 400 K/cumm [facility] MPV 12.0 9.1 - 12.3 fL [facility] RBC 2.58(L) 4.30 - 5.80 M/cumm [facility] MCV 91.1 81.3 - 96.4 fL [facility] MCH 30.2 27.1 - 33.3 pg [facility] MCHC 33.2 32.3 - 35.7 g/dL [facility] RDW CV 14.7 11.1 - 14.9 % [facility] RDW SD 46.7 35.7 - 48.1 fL [facility] NRBC abs 0.93(H) 0.00 - 0.01 K/cumm [facility] Blood 10/16/2024 2:38 PM CDT 10/16/2024 2:38 PM CDT Guillermo Mayes MD LAB BLOOD ORDERABLES Final R esult Performing Organization Address City/[facility] Co de Phone Number NICOLE RAYGOZA [address] [address] [employer] [place], [place] [id number] * Magnesium (10/16/2024 2:38 PM CDT) Pathologist [facility] Magnesium 2.2 1.4 - 2.5 mg/dL Blood 10/16/2024 2:38 PM CDT 10/16/2024 2:38 PM CDT Guillermo Mayes MD LAB BLOOD ORDERABLES Final R esult NICOLE RAYGOZA [address] [address] Manuel [place] [address] * (ABNORMAL) Lactate dehydrogenase (LD) (10/16/2024 2:38 PM CDT) Pathologist [facility] Lactate dehydrogenase (LDH) 1,808(H) 100 - 250 Units/L Blood 10/16/2024 2:38 PM CDT 10/18/2024 7:05 AM CDT Jonathan Rodriguez MD LAB BLOOD ORDERABLES Final Resu lt Performing Organization Address [facility] de Phone Number NICOLE RAYGOZA [address] [address] [facility] [place] [address] * (ABNORMAL) Haptoglobin (10/16/2024 2:38 PM CDT) Haptoglobin <10(L) 30 - 200 mg/dL Comment:Hemolysis present. R esults may be affected. Blood 10/16/2024 2:38 PM CDT 10/18/2024 7:05 AM CDT Jonathan Rodriguez MD LAB BLOOD ORDERABLES Final Resu lt Performing Organization Address [facility] de Phone Number NICOLE RAYGOZA [address] [address] Manuel [facility] [place] [address] * (ABNORMAL) Basic metabolic panel (10/16/2024 2:38 PM CDT) Sodium 138 135 - 145 mmol/L Potassium, pl 4.9 3.3 - 4.9 mmol/L [facility] Chloride 102 97 - 110 mmol/L [facility] CO2 17(L) 22 - 32 mmol/L [facility] Anion gap 19(H) 2 - 15 mmol/L [facility] BUN 80(H) 6 - 25 mg/dL [facility] Creatinine 2.40(H) 0.80 - 1.30 mg/dL [facility] Comment:Icteric sample, test results may be affected. Glucose 148 70 - 199 mg/dL [facility] Comment: Interpretive Data Fasting glucose >/= 126 mg/dl is diagnostic for diabetes. Fasting is defined as no caloric intake for at least 8 hours. Fasting glucose between 100 mg/dl to 125 mg/dl is diagnostic of prediabetes. In a patient with classic symptoms of hyperglycemia or hyperglycemic crisis, a random glucose >/= 200 mg/dl is diagnostic for diabetes. In the absence of unequivocal hyperglycemia, results should be confirmed by repeat testing. The classification and Diagnosis of Diabetes Diabetes Care 2021; 46: S19-S40. Current interpretive data was last revised 2022. Calcium 8.3(L) 8.5 - 10.3 mg/dL NICOLE RAYGOZA Blood 10/16/2024 2:38 PM CDT 10/16/2024 2:38 PM CDT Guillermo Mayes MD LAB BLOOD ORDERABLES Final R esult Performing Organization Address City/[facility] Co de Phone Number [facility] [phone] [address] Manuel [place] [address] * (ABNORMAL) Lactate (10/16/2024 2:24 PM CDT) Pathologist [facility] Lactate 4.8(C) 0.7 - 2.0 mmol/L Comment:Critical result call ed to and read back by Roopa Galeana on 10/16/2024 14:44:25 CDT to Anna Rob. Blood 10/16/2024 2:24 PM CDT 10/16/2024 2:37 PM CDT Guillermo Mayes MD LAB BLOOD ORDERABLES Final R esult Performing Organization Address [facility] Co de Phone Number [facility] [phone] [address] Department [employer] [place], [place] [id number] * Calcium, ionized, whole blood (10/16/2024 2:24 PM CDT) Pathologist [facility] Ca, ionized, bld 4.56 4.50 - 5.10 mg/dL Blood 10/16/2024 2:24 PM CDT 10/16/2024 2:37 PM CDT Guillermo Mayes MD LAB BLOOD ORDERABLES Final R esult Performing Organization Address City/[facility] Co de Phone Number [facility] [address] [address] Manuel Department [employer] [place], [place] [phone] * (ABNORMAL) Blood gas, arterial (10/16/2024 2:24 PM CDT) pH, Art 7.37 7.35 - 7.45 PCO2, Arterial 29(L) 35 - 45 mmHg [facility] PO2, Arterial 89 83 - 108 mmHg [facility] HCO3 Art (Calculated) 18(L) 20 - 30 mmol/L [facility] BE, art -8 mmol/L [facility] Comment: Interpretive Data No Reference Range Established Current Interpretive Data was last revised on 2017 O2 Sat Art (Measured) 96(H) 90 - 95 % [facility] Blood 10/16/2024 2:24 PM CDT 10/16/2024 2:37 PM CDT us Guillermo Mayes MD LAB BLOOD ORDERABLES Final R esult Performing Organization Address City/[facility]/ZIP Co de Phone Number NICOLE RAYGOZA [address] [address] Liu [place] [address] * Prepare RBC: 2 Units (10/16/2024 2:09 PM CDT) Product code [id number] Unit Number [id number]- C [facility] Product Blood Type OPOS [facility] Dispense Status PRESUMED TRANSFUSED [facility] Product code [id number] [facility] Unit Number [id number]- I [facility] Product Blood Type OPOS [facility] Dispense Status PRESUMED TRANSFUSED [facility] Blood 10/16/2024 2:09 PM CDT Narrative [facility] - 10/17/2024 10:15 AM CDT Are special requirements needed? (All products are leukoreduced and CMV- safe)- >No Date required:-[id number] LRRBC # of [id number] Reasons:-Hgb <7 g/dL} us Angelica Hagan NP BLOOD BANK PRODUCT ORDERABL ES Final Result Performing Organization Address City/[facility]/ZIP Co de Phone Number NICOLE RAYGOZA [address] Jose Manuel Liu [place] [address] * Transfuse RBC (10/16/2024 12:30 PM CDT) Blood Angelica Hagan [employer] BLOOD TRANSFUSION ORDERABLE S Final Result NICOLE [address] [address] Department [place] [address] * Blood culture Blood (10/16/2024 12:04 PM CDT) Report Final Report: No growth Comment:Testing performed by : [facility], [address] [facility], [place]., [address] Blood 10/16/2024 12:0 4 PM CDT 10/16/2024 2:12 PM CDT Narrative NICOLE - 10/20/2024 4:00 PM CDT Collection->Peripheral 1. Blood cultures are incubated for 4 days on a continuously monitored blood culture system. The first report of a negative culture is issued within 24 hours of receipt of the specimen in the laboratory. 2. Positive culture results are reported as soon as they are detected. 3. The most important factor for detection of microbes in the setting of bloodstream infection is the volume of blood submitted for culture. Failure to collect an optimal blood volume can result in false negative blood cultures. 4. For pediatric patients, the recommended blood volume to collect follows a weight based strategy. See the electronic test catalog for collection instructions. 5. For positive blood cultures, a rapid molecular test may be performed for organism identification using the doug ePlex blood culture identification panel for gram positive (BCID-GP) and gram negative (BCID-GN) organisms. This nucleic acid amplification test detects microbial DNA in positive blood culture broth. This assay has been cleared by the [place] Food and Drug Administration and its performance characteristics have been verified by the [facility]. For questions about this culture, contact the Microbiology Laboratory at [phone]. Interpretive data was last revised on 24. Roopa Yeboah [employer] LAB MICROBIOLOGY - GEN ERAL ORDERABLES Final Result NICOLE RAYGOZA [address] [address] Manuel Department [place] [address] * (ABNORMAL) CBC without differential (10/16/2024 12:04 PM CDT) WBC 22.1(H) 3.8 - 9.9 K/cumm Hgb 6.8(L) 13.0 - 17.5 g/dL [facility] Hct 20.7(L) 38.9 - 50.3 % [facility] Plt 203 150 - 400 K/cumm [facility] MPV 12.1 9.1 - 12.3 fL [facility] RBC 2.22(L) 4.30 - 5.80 M/cumm [facility] MCV 93.2 81.3 - 96.4 fL [facility] Comment:MCV delta due to sage arent blood transfusion. Spoke with Genaro Hawkins(RN) @1250 MCH 30.6 27.1 - 33.3 pg [facility] MCHC 32.9 32.3 - 35.7 g/dL [facility] RDW CV 14.4 11.1 - 14.9 % [facility] RDW SD 47.8 35.7 - 48.1 fL [facility] NRBC abs 0.90(H) 0.00 - 0.01 K/cumm [facility] Blood 10/16/2024 12:0 4 PM CDT 10/16/2024 12:08 PM CDT us Guillermo Mayes MD LAB BLOOD ORDERABLES Final R esult NICOLE RAYGOZA [address] [address] Department [place] [address] * Arterial Line Insertion (10/16/2024 11:42 AM CDT) Narrative Dani Quintero MD - 10/16/2024 11:42 AM CDT Dani Quintero MD 10/16/2024 2:43 PM Arterial Line Insertion Date/Time: 10/16/2024 11:42 AM Performed by: Naty Dunbar DO Authorized by: Naty Dunbar DO [place] Protocol: RN Notified of Procedure: yes Informed consent: Unable to obtain due to emergent status Patient's stated name/ matches armband: Patient unable to verbalize - armband matched to name and within medical record Consent form signed, dated, timed; matches correct patient, intended procedure and site: No consent form due to emergent statusImmediately prior to the procedure a time out was called: a verbal verification by the procedure participants confirmed correct patient identity, correct site/side marked and visible (if applicable); agreement on procedure to be done; and correct patient positioning Indications: multiple ABGs and hemodynamic monitoring Location: Left femoral Anesthesia: Local infiltration Local anesthetic: Lidocaine 1% Patient skin preparation: chlorhexidine Ultrasound guidance: Pre-procedure diagnostic and real-time needle guidance Patient preparation: Cap, full body drape, gloves, gown, handwashing, mask and sterile probe cover Catheter gauge: 20 Catheter length (cm): 12 Seldinger technique used: Yes Number of attempts: 1 Placement confirmed with arterial waveform: Yes Post-procedure: Line sutured and dressing applied Complications: no complications noted during insertion Post Procedure Debrief: All guidewires, needles, sponges or other items are accounted for: yes Naty Dunbar DO IV THERAPY ORDERABLES Final Result * Central Line Insertion (10/16/2024 11:41 AM CDT) Narrative Dani Quintero MD - 10/16/2024 11:41 AM CDT Dani Quintero MD 10/16/2024 2:43 PM Central Line Insertion Date/Time: 10/16/2024 11:41 AM Performed by: Naty Dunbar DO Authorized by: Naty Dunbar DO [place] Protocol: RN Notified of Procedure: yes Informed consent: Unable to obtain due to emergent status Patient's stated name/ matches armband: YesImmediately prior to the procedure a time out was called: a verbal verification by the procedure participants confirmed correct patient identity, correct site/side marked and visible (if applicable); agreement on procedure to be done; and correct patient positioning Have non- routine considerations been assessed?: Yes Indications: Vascular access and administer vasoactive medications Anesthesia (see MAR for exact dosage) Anesthesia method: Local infiltration Patient position: Flat Skin preparation: Skin prepped with 2% chlorhexidine Provider preparation: Cap, full body drape, gloves, gown, handwashing and mask Location: Left femoral Ultrasound guidance: Pre-procedure diagnostic and real-time needle guidance Assessment: Blood return through all ports and free fluid flow Catheter type: Triple lumen Catheter size: 7 Fr Needle inserted, vein idenitified then guidewire inserted easily into vein: Yes Number of attempts: 2 Successful placement: Yes Post Procedure Debrief: All guidewires, needles, sponges or other items are accounted for: yes us Naty Dunbar DO IN CLINIC/[facility] [place] Final Result * (ABNORMAL) Urinalysis reflex to microscopic and culture Urine, clean voided (10/16/2024 11:30 AM CDT) Color, ur Yellow Yellow Clarity, ur Turbid(A) Clear [facility] Specific gravity, ur 1.021 1.003 - 1.030 [facility] pH, urine 5.0 [facility] Comment: Interpretive Data U rine pH is affected by diet, medications, systemic acid-base disturbances, and renal tubular function. pH may affect urinary stone formation. For example, urine pH below 6.0 may help reduce the tendency for calcium phosphate stones and pH greater than 6.0 may reduce the tendency for uric acid stone formation. Source: [facility] Current Interpretive Data was last revised on 2017 Protein, ur ql Trace Negative [facility] Glucose, ur ql Negative Negative [facility] Ketones, ur Trace Negative [facility] Bilirubin, ur Negative Negative [facility] Blood, ur 3+(A) Negative [facility] Urobilinogen, ur <2.0 <2.0 mg/dL [facility] Nitrite, ur Negative Negative [facility] Leukocyte esterase, ur 1+(A) Negative [facility] UA reflex comment Reflex to microscopic UA will be performed. [facility] Urine, clean voided 10/16/2024 11:30 AM CDT 10/16/2024 11:35 AM CDT us Roopa Yeboah [employer] LAB MICROBIOLOGY - GEN ERAL ORDERABLES Final Result Performing Organization Address [facility]/ZIP Co de Phone Number NICOLE RAYGOZA [address] Jose Manuel [facility] [place] [address] * (ABNORMAL) Urinalysis, microscopic only (10/16/2024 11:30 AM CDT) WBC, ur 6-10(A) 0 - 5 /HPF RBC, ur >50(A) 0 - 2 /HPF [facility] Epithelial cells, squamous, ur 1-5 0 - 5 /HPF [facility] Bacteria, ur Trace(A) [facility] Muc[facility], ur Present(A) [facility] Calcium oxalate crystals, ur 2+(A) [facility] Hyaline casts, ur 1-5 0 - 10 /LPF [facility] Culture Reflex Comment Reflex conditions for urine culture (WBC >10) not met. [facility] Urine, clean voided 10/16/2024 11:30 AM CDT 10/16/2024 11:35 AM CDT Roopa Yeboah [employer] LAB URINE ORDERABLES F inal Result Performing Organization Address [facility] de Phone Number NICOLE RAYGOZA [address] Jose Manuel [facility] [place] [address] * Infection Prevention MRSA Only (Staphylococcus aureus) PCR Nasal (10/16/2024 11:03 AM CDT) PCR Scrn, Methicillin resistant Staphylococcus aureus (MRSA) Not Detected Not Detected Comment: Interpretive Data Testing performed using Nucleic Acid Amplification with the ApptheGame Xpert MRSA NxG Assay. This assay detects target DNA from mecA, mecC and the SCCmec insertion site of Staphylococcus aureus using Real-Time PCR and has been cleared by the FDA. Performance characteristics have been verified by the [facility]. Current Interpretive Data was last revised on 2022 Nasal 10/16/2024 11:0 3 AM CDT 10/16/2024 11:39 AM CDT Angelica Hagan [employer] LAB MICROBIOLOGY - GENERAL ORDERABLES Final Result Performing Organization Address [facility] Co de Phone Number NICOLE RAYGOZA [address] Jose Manuel Department [place] [address] CH * Prepare RBC: 1 Units (10/16/2024 10:37 AM CDT) Pathologist [facility] Product code [id number] Unit Number [id number] G [facility] Product Blood Type OPOS [facility] Dispense Status PRESUMED TRANSFUSED [facility] Blood 10/16/2024 10:3 7 AM CDT Narrative [facility] - 10/16/2024 10:15 PM CDT Are special requirements needed? (All products are leukoreduced and CMV- safe)- >No Date required:-[id number] LRRBC # of Vkync-[id number] Reasons:-Active bleeding, Hgb <8 g/dL} Angelica Hagan NP BLOOD BANK PRODUCT ORDERABL ES Final Result Performing Organization Address [facility] de Phone Number NICOLE RAYGOZA [address] Jose Manuel Department [place] [address] * (ABNORMAL) POC Blood Gas and Chemistries, Arterial - (10/16/2024 10:02 AM CDT) Pathologist [facility] pH, Art POC 7.32(L) 7.35 - 7.45 pCO2, Art POC 24(L) 35 - 45 mmHg [facility] pO2, Art POC 105 83 - 108 mmHg [facility] Na, POC 133(L) 135 - 145 mmol/L [facility] K POC 5.5(H) 3.3 - 4.9 mmol/L [facility] Comment: Interpretive Data This method is not able to assess for hemolysis, which may falsely increase potassium concentrations. If further testing is needed to evaluate this result, consider in-laboratory plasma potassium. Current Interpretive Data was last revised on 2022. Ionized Ca, POC 4.26(L) 4.50 - 5.10 mg/dL [facility] Glucose, POC 124 70 - 199 mg/dL [facility] Lactate, POC 8.8(C) 0.7 - 2.0 mmol/L [facility] O2Hb, Art POC 96.6(H) 90.0 - 95.0 % [facility] SO2 (asiya) arterial 99(H) 90 - 95 % [facility] Total CO2, Art POC 13(L) 21 - 30 mmol/L [facility] BE, art, POC -12 mmol/L [facility] HCO3, Art POC 15(L) 20 - 30 mmol/L [facility] Hct, POC 20.0(L) 38.9 - 50.3 % [facility] Total Hb, POC 6.7(L) 13.0 - 17.5 g/dL [facility] Blood 10/16/2024 10:0 2 AM CDT 10/16/2024 10:02 AM CDT us Guillermo Mayes MD LAB POCT ORDERABLES - DEVICE Final Result Performing Organization Address [facility] Co de Phone Number NICOLE RAYGOZA [address] Jose Manuel Liu Department [place] [address] * (ABNORMAL) Lactate (10/16/2024 10:01 AM CDT) Pathologist [facility] Lactate 10.5(C) 0.7 - 2.0 mmol/L Comment:Critical result call ed to and read back by Roopa Galeana RN_ (_) on 10/16/2024 10:12:28 CDT to fareed santana. Blood 10/16/2024 10:0 1 AM CDT 10/16/2024 10:04 AM CDT Roopa Yeboah [employer] LAB BLOOD ORDERABLES F inal Result Performing Organization Address City/[facility]/ZIP Co de Phone Number LORINACE RAYGOZA [address] Jose Manuel Liu Department of [employer] [place], [place] [id number] * (ABNORMAL) eGFR (10/16/2024 10:01 AM CDT) eGFR 25(L) >=60 mL/min/1. 73 m2 Comment: Interpretive Data Reference Interval Normal >/= 90 mL/min/1.73m2 Mildly decreased* 60 - 89 mL/min/1.73m2 Mildly to moderately decreased 45 - 59 mL/min/1.73m2 Moderately to severely decreased 30 - 44 mL/min/1.73m2 Severely decreased 15 - 29 mL/min/1.73m2 Kidney Failure < 15 mL/min/1.73m2 *Relative to young adult level Estimated glomerular filtration rate is determined by the 2020 CKD-EPI equation recommended by the National Kidney Foundation (A Unifying Approach to GFR Estimation: Recommendations of the NKF-ASK Task Force on Reassessing the Inclusion of Race in Diagnosing Kidney Disease, JASN 2020). The CKD-EPI equation should not be used for patients with unstable renal function and has not been validated in children and those over 70. Current interpretive data was last reviewed 2021. Blood 10/16/2024 10:0 1 AM CDT 10/16/2024 10:05 AM CDT Roopa Yeboah NP LAB BLOOD ORDERABLES F inal Result NICOLE RAYGOZA [address] Jose Manuel Liu Department of Laboratories [place], [place] [id number] * Blood culture Blood (10/16/2024 10:01 AM CDT) Report Final Report: No growth Comment:Testing performed by : [facility], [address] [place]., [address] Blood 10/16/2024 10:0 1 AM CDT 10/16/2024 12:02 PM CDT Narrative NICOLE RAYGOZA - 10/20/2024 4:00 PM CDT From a different site than #1. Collection->Peripheral 1. Blood cultures are incubated for 4 days on a continuously monitored blood culture system. The first report of a negative culture is issued within 24 hours of receipt of the specimen in the laboratory. 2. Positive culture results are reported as soon as they are detected. 3. The most important factor for detection of microbes in the setting of bloodstream infection is the volume of blood submitted for culture. Failure to collect an optimal blood volume can result in false negative blood cultures. 4. For pediatric patients, the recommended blood volume to collect follows a weight based strategy. See the electronic test catalog for collection instructions. 5. For positive blood cultures, a rapid molecular test may be performed for organism identification using the doug ePlex blood culture identification panel for gram positive (BCID-GP) and gram negative (BCID-GN) organisms. This nucleic acid amplification test detects microbial DNA in positive blood culture broth. This assay has been cleared by the [place] Food and Drug Administration and its performance characteristics have been verified by the [facility]. For questions about this culture, contact the Microbiology Laboratory at [phone]. Interpretive data was last revised on 24. Roopa Yeboah [employer] LAB MICROBIOLOGY - GEN ERAL ORDERABLES Final Result Performing Organization Address [facility] Co de Phone Number NICOLE RAYGOZA [address] Jose Manuel [place] [address] * (ABNORMAL) aPTT (10/16/2024 10:01 AM CDT) aPTT 26(L) 28 - 38 sec Comment: Interpretive Data Heparin therapeutic range: 66.0 - 100.0 seconds. Range based on correlation with therapeutic heparin activity range of 0.3 - 0.7 Units/mL. Current interpretive data was last revised on 2023. Blood 10/16/2024 10:0 1 AM CDT 10/16/2024 10:05 AM CDT Angelica Hagan [employer] LAB BLOOD ORDERABLES Final Result Performing Organization Address [facility] Co de Phone Number NICOLE [address] Jose Manuel [place] [address] * (ABNORMAL) Protime-INR (10/16/2024 10:01 AM CDT) PT 17.1(H) 9.7 - 13.0 sec INR 1.57(H) 0.90 - 1.20 NICOLE RAYGOZA Comment: Interpretive data Oral anticoagulant therapeutic ranges: Venous thromboembolism prophylaxis or treatment: 2.0-3.0 CARDIOLOGY Standard range: 2.0-3.0 High-intensity range: 2.5-3.5 Refer to indication-specific guidelines for appropriate target ranges for prosthetic heart valve replacement. Current interpretive data was last revised on 2019. Blood 10/16/2024 10:0 1 AM CDT 10/16/2024 10:05 AM CDT Angelica Hagan NP LAB BLOOD ORDERABLES Final Result Performing Organization Address City/[facility] Co de Phone Number NICOLE RAYGOZA [address] [address] Manuel Department [place] [address] * Type and screen (10/16/2024 10:01 AM CDT) Nani, indirect Negative ABO Rh O Positive [facility] Blood 10/16/2024 10:0 1 AM CDT 10/16/2024 10:07 AM CDT Narrative NICOLE - 10/16/2024 11:01 AM CDT Has the patient had Daratumumab or Isatuximab in the past 6 months?->Unknown Angelica Hagan NP LAB BLOOD BANK TEST ORDERAB LES Final Result Performing Organization Address [facility] Co de Phone Number NICOLE RAYGOZA [address] [address] Manuel Department [place] [address] * Direct antiglobulin test (10/16/2024 10:01 AM CDT) Direct Nani BS Interpretation Negative Blood 10/16/2024 10:0 1 AM CDT 10/18/2024 7:18 AM CDT Jonathan Rodriguez MD LAB BLOOD BANK TEST ORDERABLES Final Result Performing Organization Address City/[facility] Co de Phone Number NICOLE RAYGOZA [address] Jose Manuel Department [place] [address] * (ABNORMAL) Blood gas, arterial (10/16/2024 10:01 AM CDT) pH, Art 7.34(L) 7.35 - 7.45 PCO2, Arterial 26(L) 35 - 45 mmHg [facility] PO2, Arterial 110(H) 83 - 108 mmHg [facility] HCO3 Art (Calculated) 15(L) 20 - 30 mmol/L [facility] BE, art -11 mmol/L [facility] Comment: Interpretive Data No Reference Range Established Current Interpretive Data was last revised on 2017 O2 Sat Art (Measured) 96(H) 90 - 95 % [facility] Blood 10/16/2024 10:0 1 AM CDT 10/16/2024 10:08 AM CDT Angelica Hagan NP LAB BLOOD ORDERABLES Final Result [facility] [address] [address] Department [place] [address] * (ABNORMAL) Basic metabolic panel (10/16/2024 10:01 AM CDT) Sodium 136 135 - 145 mmol/L Potassium, pl 5.6(H) 3.3 - 4.9 mmol/L [facility] Chloride 97 97 - 110 mmol/L [facility] CO2 14(L) 22 - 32 mmol/L [facility] Anion gap 25(H) 2 - 15 mmol/L [facility] 78(H) 6 - 25 mg/dL [facility] Creatinine 2.50(H) 0.80 - 1.30 mg/dL [facility] Comment:Icteric sample, test results may be affected. Glucose 122 70 - 199 mg/dL [facility] Comment: Interpretive Data Fasting glucose >/= 126 mg/dl is diagnostic for diabetes. Fasting is defined as no caloric intake for at least 8 hours. Fasting glucose between 100 mg/dl to 125 mg/dl is diagnostic of prediabetes. In a patient with classic symptoms of hyperglycemia or hyperglycemic crisis, a random glucose >/= 200 mg/dl is diagnostic for diabetes. In the absence of unequivocal hyperglycemia, results should be confirmed by repeat testing. The classification and Diagnosis of Diabetes Diabetes Care 202; 46: S19-S40. Current interpretive data was last revised 2022. Calcium 8.0(L) 8.5 - 10.3 mg/dL NICOLE Blood 10/16/2024 10:0 1 AM CDT 10/16/2024 10:05 AM CDT us Roopa Barksdale Edilia [employer] LAB BLOOD ORDERABLES F inal Result NICOLE [address] Department of Laboratories [place] [id number] * TRANSTHORACIC ECHO (TTE) LIMITED/FOLLOW UP W LTD DOPPLER/CF WO CONTRAST (10/16/2024 9:35 AM CDT) Anatomical Region Laterality Modality Ultrasound 10/16/2024 8:12 AM CDT Narrative 10/16/2024 9:39 [place] [address] Limited Echocardiogram Report Patient Name: TREVOR SHAW : 1945 Study Date: 10/16/2024 8:12:00 AM Gender: M Tech: Location: [id number] Ref Provider: ANGELICA HAGAN Height(Cm): 182 BSA: Weight(Kg): 117 Heart Rate: 85 BP: 101/83 Quality: Good Order Provider: ANGELICA HAGAN PROCEDURES: Echocardiographic Report: Limited transthoracic echocardiogram with 2D and M-Mode. INDICATIONS: r/o Tamponade. FINDINGS: Left Ventricle: Reduced left ventricular cavity size. Hyperdynamic left ventricular function. No focal wall motion abnormalities. Right Ventricle: Normal right ventricular size. Normal right ventricular systolic function. Right Atrium: The right atrium is normal in size. Pericardium: Small pericardial effusion. No echocardiographic evidence to suggest pericardial tamponade. CONCLUSIONS: Reduced left ventricular cavity size. Hyperdynamic left ventricular function. No focal wall motion abnormalities. Visually estimated ejection fraction at 70%. Normal right ventricular size. Normal right ventricular systolic function. Possible Small posterior pericardial effusion. No echocardiographic evidence to suggest pericardial tamponade. Technically difficult study with suboptimal visualization. Electronically Signed By: Shaila Fuentes MD 10/16/2024 9:38:13 AM CDT Procedure Note Shaila Fuentes MD - 10/16/2024 [place] [address] Limited Echocardiogram Report Patient Name: TREVOR SHAW : 1945 Study Date: 10/16/2024 8:12:00 AM Gender: M Tech: Location: [id number] Ref Provider: ANGELICA HAGAN Height(Cm): 182 BSA: Weight(Kg): 117 Heart Rate: 85 BP: 101/83 Quality: Good Order Provider: ANGELICA HAGAN PROCEDURES: Echocardiographic Report: Limited transthoracic echocardiogram with 2D and M-Mode. INDICATIONS: r/o Tamponade. FINDINGS: Left Ventricle: Reduced left ventricular cavity size. Hyperdynamic left ventricularfunction. No focal wall motion abnormalities. Right Ventricle: Normal right ventricular size. Normal right ventricular systolicfunction. Right Atrium: The right atrium is normal in size. Pericardium: Small pericardial effusion. No echocardiographic evidence to suggestpericardial tamponade. CONCLUSIONS: Reduced left ventricular cavity size. Hyperdynamic left ventricularfunction. No focal wall motion abnormalities. Visually estimated ejection fraction at 70%. Normal right ventricular size. Normal right ventricular systolicfunction. Possible Small posterior pericardial effusion. No echocardiographicevidence to suggest pericardial tamponade. Technically difficult study with suboptimal visualization. Electronically Signed By: Shaila Fuentes MD 10/16/2024 9:38:13 AM CDT Angelica Hagan NP CV ECHO PROCEDURES Final Re sult * Prepare RBC: 1 Units (10/16/2024 9:08 AM CDT) Product code [id number] Unit Number [id number]- [facility] Product Blood Type OPOS [facility] Dispense Status PRESUMED TRANSFUSED [facility] Blood 10/16/2024 9:08 AM CDT Narrative [facility] - 10/16/2024 10:15 PM CDT Are special requirements needed? (All products are leukoreduced and CMV- safe)- >No Date required:-[id number] LRRBC # of [id number] Reasons:-Cardiovascular disease, Hgb <8 g/dL} Angelica Hagan NP BLOOD BANK PRODUCT ORDERABL ES Final Result [facility] [address] [address] Department [place] [address] * CT Chest Abdomen Pelvis WO Contrast (10/16/2024 9:04 AM CDT) Anatomical Region Laterality Modality Body N/A Computed Tomogra phy 10/16/2024 10:2 9 AM CDT Impressions 10/16/2024 10:29 AM CDT 1. STATUS POST MEDIAN STERNOTOMY AND AORTIC VALVE REPLACEMENT. 2. SMALL AMOUNT OF AIR POSTERIOR TO THE STERNUM AND IN THE ANTERIOR MEDIASTINUM . NO EVIDENCE OF AN ABSCESS, PER SE. 3. LEFT-SIDED AICD DEVICE IN PLACE. 4. INTERVAL DEVELOPMENT OF A MODERATE SIZE PERICARDIAL EFFUSION AND SMALL BILATERAL PLEURAL EFFUSIONS. 5. CORONARY ARTERY DISEASE AND AORTIC ATHEROSCLEROSIS. 6. NO INFLAMMATORY LESION IS SEEN IN THE ABDOMEN OR PELVIS. 7. COMPRESSION FRACTURE OF L2 WHICH IS OF UNCERTAIN CHRONICITY. Electronically signed by: Haroldo Juan M.D. Narrative 10/16/2024 10:29 AM CDT EXAMINATION: CT CHEST ABDOMEN PELVIS WO CONTRAST DATE: 10/16/2024 8:55 AM HISTORY: Sepsis. COMPARISON: CT chest from 10/04/2024. TECHNIQUE: Transaxial computed tomographic images of the chest, abdomen, and pelvis were obtained without oral or IV contrast material. Multiplanar coronal and sagittal images were reformatted. CT CHEST: There are postsurgical changes from a median sternotomy and aortic valve replacement. There is a small amount of air posterior to the sternum and in the anterior mediastinum. There is a left-sided AICD device with leads in the right atrium and right ventricle. The heart size is normal. There is coronary artery calcification. There is a moderate size pericardial effusion which is new. There has been interval development of small bilateral pleural effusions with underlying consolidation in the lower lobes. CT ABDOMEN AND PELVIS: The liver, gallbladder, pancreas and spleen appear normal. No evidence of free air or free fluid in the abdomen. Small renal cysts are stable. The kidneys and adrenal glands are otherwise unremarkable. No evidence retroperitoneal adenopathy. There are atherosclerotic changes in the abdominal aorta. The appendix is normal. No evidence of bowel obstruction. No inflammatory lesion is seen. The urinary bladder is normal. There is a compression fracture of L2. Procedure Note Haroldo Juan MD - 10/16/2024 EXAMINATION: CT CHEST ABDOMEN PELVIS WO CONTRAST DATE: 10/16/2024 8:55 AM HISTORY: Sepsis. COMPARISON: CT chest from 10/04/2024. TECHNIQUE: Transaxial computed tomographic images of the chest, abdomen, and pelvis were obtained without oral or IV contrast material. Multiplanar coronal and sagittal images were reformatted. CT CHEST: There are postsurgical changes from a median sternotomy and aortic valve replacement. There is a small amount of air posterior to the sternum and in the anterior mediastinum. There is a left-sided AICD device with leads in the right atrium and right ventricle. The heart size is normal. There is coronary artery calcification. There is a moderate size pericardial effusion which is new. There has been interval development of small bilateral pleural effusions with underlying consolidation in the lower lobes. CT ABDOMEN AND PELVIS: The liver, gallbladder, pancreas and spleen appear normal. No evidence of free air or free fluid in the abdomen. Small renal cysts are stable. The kidneys and adrenal glands are otherwise unremarkable. No evidence retroperitoneal adenopathy. There are atherosclerotic changes in the abdominal aorta. The appendix is normal. No evidence of bowel obstruction. No inflammatory lesion is seen. The urinary bladder is normal. There is a compression fracture of L2. IMPRESSION: 1. STATUS POST MEDIAN STERNOTOMY AND AORTIC VALVE REPLACEMENT. 2. SMALL AMOUNT OF AIR POSTERIOR TO THE STERNUM AND IN THE ANTERIOR MEDIASTINUM . NO EVIDENCE OF AN ABSCESS, PER SE. 3. LEFT-SIDED AICD DEVICE IN PLACE. 4. INTERVAL DEVELOPMENT OF A MODERATE SIZE PERICARDIAL EFFUSION AND SMALL BILATERAL PLEURAL EFFUSIONS. 5. CORONARY ARTERY DISEASE AND AORTIC ATHEROSCLEROSIS. 6. NO INFLAMMATORY LESION IS SEEN IN THE ABDOMEN OR PELVIS. 7. COMPRESSION FRACTURE OF L2 WHICH IS OF UNCERTAIN CHRONICITY. Electronically signed by: Haroldo Juan M.D. us Angelica Hagan NP IMG CT PROCEDURES Final Res ult * CT Head WO Contrast (10/16/2024 9:03 AM CDT) Anatomical Region Laterality Modality Head and Neck N/A Computed Tomogra phy 10/16/2024 9:09 AM CDT Impressions 10/16/2024 9:09 AM CDT No acute intracranial abnormality. Electronically signed by: Richie Cox M.D. Narrative 10/16/2024 9:09 AM CDT EXAMINATION: CT head without contrast HISTORY: post syncopal episode fell to the floor from chair TECHNIQUE: Noncontrast CT of the brain was performed with images acquired from skull base to vertex. COMPARISON: None available. FINDINGS: There is no acute intracranial hemorrhage. Ventricles are of normal size and morphology. No mass effect or midline shift is present. The benjamin-white matter differentiation is normal. The visualized portions of the orbits are without acute abnormality. The visualized portions of the mastoids are normal. The visualized portions of the paranasal sinuses are normal. No fractures are identified. Procedure Note Richie Cox MD - 10/16/2024 EXAMINATION: CT head without contrast HISTORY: post syncopal episode fell to the floor from chair TECHNIQUE: Noncontrast CT of the brain was performed with images acquired from skull base to vertex. COMPARISON: None available. FINDINGS: There is no acute intracranial hemorrhage. Ventricles are of normal size and morphology. No mass effect or midline shift is present. The benjamin-white matter differentiation is normal. The visualized portions of the orbits are without acute abnormality. The visualized portions of the mastoids are normal. The visualized portions of the paranasal sinuses are normal. No fractures are identified. IMPRESSION: No acute intracranial abnormality. Electronically signed by: Richie Cox M.D. us Angelica Hagan [employer] IMG CT PROCEDURES Final Res ult * (ABNORMAL) POC Blood Gas and Chemistries, Arterial - (10/16/2024 8:36 AM CDT) pH, Art POC 7.27(L) 7.35 - 7.45 pCO2, Art POC 22(L) 35 - 45 mmHg [facility] pO2, Art POC 67(L) 83 - 108 mmHg [facility] Na, POC 130(L) 135 - 145 mmol/L [facility] K POC 5.4(H) 3.3 - 4.9 mmol/L [facility] Comment: Interpretive Data This method is not able to assess for hemolysis, which may falsely increase potassium concentrations. If further testing is needed to evaluate this result, consider in-laboratory plasma potassium. Current Interpretive Data was last revised on 2022. Ionized Ca, POC 4.43(L) 4.50 - 5.10 mg/dL [facility] Glucose, POC 137 70 - 199 mg/dL [facility] Lactate, POC 10.0(C) 0.7 - 2.0 mmol/L [facility] O2Hb, Art POC 89.2(L) 90.0 - 95.0 % [facility] SO2 (asiya) arterial 90 90 - 95 % [facility] Total CO2, Art POC 11(L) 21 - 30 mmol/L [facility] BE, art, POC -15 mmol/L [facility] HCO3, Art POC 13(L) 20 - 30 mmol/L [facility] Hct, POC 23.0(L) 38.9 - 50.3 % [facility] Total Hb, POC 7.7(L) 13.0 - 17.5 g/dL [facility] Blood 10/16/2024 8:36 AM CDT 10/16/2024 8:36 AM CDT us Guillermo Mayes MD LAB POCT ORDERABLES - DEVICE Final Result Performing Organization Address City/[facility] Co de Phone Number NICOLE RAYGOZA [address] [address] [facility] [place] [address] * POCT glucose (10/16/2024 8:24 AM CDT) Glucose, POC 136 70 - 199 mg/dL Blood 10/16/2024 8:24 AM CDT 10/16/2024 8:24 AM CDT us Guillermo Mayes MD LAB POCT ORDERABLES - DEVICE Final Result Performing Organization Address [facility] Phone Number NICOLE RAYGOZA [address] [place] [address] * (ABNORMAL) eGFR (10/16/2024 5:14 AM CDT) eGFR 31(L) >=60 mL/min/1. 73 m2 Comment: Interpretive Data Reference Interval Normal >/= 90 mL/min/1.73m2 Mildly decreased* 60 - 89 mL/min/1.73m2 Mildly to moderately decreased 45 - 59 mL/min/1.73m2 Moderately to severely decreased 30 - 44 mL/min/1.73m2 Severely decreased 15 - 29 mL/min/1.73m2 Kidney Failure < 15 mL/min/1.73m2 *Relative to young adult level Estimated glomerular filtration rate is determined by the 2020 CKD-EPI equation recommended by the National Kidney Foundation (A Unifying Approach to GFR Estimation: Recommendations of the NKF-ASK Task Force on Reassessing the Inclusion of Race in Diagnosing Kidney Disease, JASN 2020). The CKD-EPI equation should not be used for patients with unstable renal function and has not been validated in children and those over 70. Current interpretive data was last reviewed 2021. Blood 10/16/2024 5:14 AM CDT 10/16/2024 6:07 AM CDT us Yvette Russell NP LAB BLOOD ORDERABLES Fin al Result Performing Organization Address City/[facility]/ZIP Co de Phone Number NICOLE [place]AYGO[place] [address] Department [place] [address] * (ABNORMAL) CBC without differential (10/16/2024 5:14 AM CDT) WBC 19.8(H) 3.8 - 9.9 K/cumm Hgb 7.9(L) 13.0 - 17.5 g/dL [facility] Hct 26.4(L) 38.9 - 50.3 % [facility] Plt 229 150 - 400 K/cumm [facility] MPV 12.1 9.1 - 12.3 fL [facility] RBC 2.47(L) 4.30 - 5.80 M/cumm [facility] MCV 106.9(H) 81.3 - 96.4 fL [facility] Comment:MCV delta possibly d ue to low sample volume. MCH 32.0 27.1 - 33.3 pg [facility] MCHC 29.9(L) 32.3 - 35.7 g/dL [facility] RDW CV 14.8 11.1 - 14.9 % [facility] RDW SD 56.7(H) 35.7 - 48.1 fL [facility] NRBC abs 0.78(H) 0.00 - 0.01 K/cumm [facility] CH Blood 10/16/2024 5:14 AM CDT 10/16/2024 6:08 AM CDT us Guillermo Mayes MD LAB BLOOD ORDERABLES Final R esult NICOLE [address] Department [employer] [place], [place] [id number] * (ABNORMAL) Basic metabolic panel (10/16/2024 5:14 AM CDT) Sodium 136 135 - 145 mmol/L Potassium, pl 5.4(H) 3.3 - 4.9 mmol/L [facility] Chloride 99 97 - 110 mmol/L [facility] CO2 11(L) 22 - 32 mmol/L [facility] Anion gap 26(H) 2 - 15 mmol/L [facility] BUN 75(H) 6 - 25 mg/dL [facility] Creatinine 2.11(H) 0.80 - 1.30 mg/dL [facility] Glucose 105 70 - 199 mg/dL [facility] Comment: Interpretive Data Fasting glucose >/= 126 mg/dl is diagnostic for diabetes. Fasting is defined as no caloric intake for at least 8 hours. Fasting glucose between 100 mg/dl to 125 mg/dl is diagnostic of prediabetes. In a patient with classic symptoms of hyperglycemia or hyperglycemic crisis, a random glucose >/= 200 mg/dl is diagnostic for diabetes. In the absence of unequivocal hyperglycemia, results should be confirmed by repeat testing. The classification and Diagnosis of Diabetes Diabetes Care 2021; 46: S19-S40. Current interpretive data was last revised 2022. Calcium 8.8 8.5 - 10.3 mg/dL [facility] Blood 10/16/2024 5:14 AM CDT 10/16/2024 6:07 AM CDT Guillermo Mayes MD LAB BLOOD ORDERABLES Final R esult NICOLE [place] [address] [address] Department [place] [address] * XR Chest 1 View - Portable - in AM (10/16/2024 4:29 AM CDT) Anatomical Region Laterality Modality Body, Chest N/A Computed Radiogr aphy 10/16/2024 9:56 AM CDT Impressions 10/16/2024 9:56 AM CDT Pacer leads are intact. Poststernotomy changes noted. Mild pulmonary vascular congestion. No consolidation or acute osseous abnormality. Electronically signed by: Jj Grubbs II, D.O. Narrative 10/16/2024 9:56 AM CDT EXAMINATION: XR CHEST 1 VIEW DATE: 10/16/2024 3:20 AM INDICATION: Cardiac surgery. COMPARISON: 10/25/2024. Procedure Note Jj Grubbs II, - 10/16/2024 EXAMINATION: XR CHEST 1 VIEW DATE: 10/16/2024 3:20 AM INDICATION: Cardiac surgery. COMPARISON: 10/25/2024. IMPRESSION: Pacer leads are intact. Poststernotomy changes noted. Mild pulmonary vascular congestion. No consolidation or acute osseous abnormality. Electronically signed by: Jj Grubbs II, D.O. us Guillermo Mayes MD IMG XR PROCEDURES Final Resu lt * (ABNORMAL) eGFR (10/15/2024 1:32 PM CDT) eGFR 45(L) >=60 mL/min/1. 73 m2 Comment: Interpretive Data Reference Interval Normal >/= 90 mL/min/1.73m2 Mildly decreased* 60 - 89 mL/min/1.73m2 Mildly to moderately decreased 45 - 59 mL/min/1.73m2 Moderately to severely decreased 30 - 44 mL/min/1.73m2 Severely decreased 15 - 29 mL/min/1.73m2 Kidney Failure < 15 mL/min/1.73m2 *Relative to young adult level Estimated glomerular filtration rate is determined by the 2020 CKD-EPI equation recommended by the National Kidney Foundation (A Unifying Approach to GFR Estimation: Recommendations of the NKF-ASK Task Force on Reassessing the Inclusion of Race in Diagnosing Kidney Disease, JASN 202). The CKD-EPI equation should not be used for patients with unstable renal function and has not been validated in children and those over 70. Current interpretive data was last reviewed 2021. Blood 10/15/2024 1:32 PM CDT 10/15/2024 1:32 PM CDT Guillermo Mayes MD LAB BLOOD ORDERABLES Final R esult [facility] [address] [address] Department [place] [address] * (ABNORMAL) CBC without differential (10/15/2024 1:32 PM CDT) WBC 14.9(H) 3.8 - 9.9 K/cumm Hgb 8.4(L) 13.0 - 17.5 g/dL [facility] Hct 26.4(L) 38.9 - 50.3 % [facility] Plt 240 150 - 400 K/cumm [facility] MPV 12.0 9.1 - 12.3 fL [facility] RBC 2.76(L) 4.30 - 5.80 M/cumm [facility] MCV 95.7 81.3 - 96.4 fL [facility] MCH 30.4 27.1 - 33.3 pg [facility] MCHC 31.8(L) 32.3 - 35.7 g/dL [facility] RDW CV 14.6 11.1 - 14.9 % [facility] RDW SD 49.9(H) 35.7 - 48.1 fL [facility] NRBC abs 0.52(H) 0.00 - 0.01 K/cumm [facility] Blood 10/15/2024 1:32 PM CDT 10/15/2024 1:32 PM CDT us Guillermo Mayes MD LAB BLOOD ORDERABLES Final R esult NICOLE [place] [address] [address] Department [place] [address] * (ABNORMAL) Basic metabolic panel (10/15/2024 1:32 PM CDT) Pathologist [facility] Sodium 139 135 - 145 mmol/L Potassium, pl 4.6 3.3 - 4.9 mmol/L [facility] Chloride 102 97 - 110 mmol/L [facility] CO2 19(L) 22 - 32 mmol/L [facility] Anion gap 18(H) 2 - 15 mmol/L [facility] BUN 62(H) 6 - 25 mg/dL [facility] Creatinine 1.56(H) 0.80 - 1.30 mg/dL [facility] Glucose 140 70 - 199 mg/dL [facility] Comment: Interpretive Data Fasting glucose >/= 126 mg/dl is diagnostic for diabetes. Fasting is defined as no caloric intake for at least 8 hours. Fasting glucose between 100 mg/dl to 125 mg/dl is diagnostic of prediabetes. In a patient with classic symptoms of hyperglycemia or hyperglycemic crisis, a random glucose >/= 200 mg/dl is diagnostic for diabetes. In the absence of unequivocal hyperglycemia, results should be confirmed by repeat testing. The classification and Diagnosis of Diabetes Diabetes Care 2021; 46: S19-S40. Current interpretive data was last revised 2022. Calcium 9.2 8.5 - 10.3 mg/dL NICOLE Blood 10/15/2024 1:32 PM CDT 10/15/2024 1:32 PM CDT Guillermo Mayes MD LAB BLOOD ORDERABLES Final R esult Performing Organization Address [facility] Co de Phone Number NICOLE RAYGOZA [address] [address] Department [place] [address] * POCT glucose (10/15/2024 11:55 AM CDT) Glucose, POC 134 70 - 199 mg/dL Blood 10/15/2024 11:5 5 AM CDT 10/15/2024 11:55 AM CDT Guillermo Mayes MD LAB POCT ORDERABLES - DEVICE Final Result Performing Organization Address [facility] de Phone Number NICOLE [address] [address] Department [place] [address] * XR Chest 1 View - Portable - in AM (10/15/2024 6:31 AM CDT) Anatomical Region Laterality Modality Body, Chest N/A Computed Radiogr aphy 10/15/2024 8:25 AM CDT Impressions 10/15/2024 8:25 AM CDT Pacer leads are intact. No pneumothorax or pleural effusion. Poststernotomy changes noted. No consolidation. No acute osseous abnormality. Electronically signed by: Jj Grubbs II, D.O. Narrative 10/15/2024 8:25 AM CDT EXAMINATION: XR CHEST 1 VIEW DATE: 10/15/2024 5:25 AM INDICATION: Cardiac surgery. COMPARISON: 10/14/2024. Procedure Note Jj Grubbs II, DO - 10/15/2024 EXAMINATION: XR CHEST 1 VIEW DATE: 10/15/2024 5:25 AM INDICATION: Cardiac surgery. COMPARISON: 10/14/2024. IMPRESSION: Pacer leads are intact. No pneumothorax or pleural effusion. Poststernotomy changes noted. No consolidation. No acute osseous abnormality. Electronically signed by: Jj Grubbs II, D.O. Result [facility] Guillermo Mayes MD IMG XR PROCEDURES Final Resu lt * ECG 12 lead (10/15/2024 1:15 AM RN QUALITY) 10/15/2024 1:15 AM RN QUALITY Narrative [facility] - 10/15/2024 11:28 AM CDT Vent Rate: 106 bpm RR Interval: 564 msec LA Interval: 0 msec QRS Duration: 101 msec QT Interval: 342 msec QTC Interval: 404 msec P-R-T [place]: 0 - 12 - 88 degrees IMPRESSION: POSSIBLE SINUS TACHYCARDIA ST ELEVATION, PROBABLY EARLY REPOLARIZATION NONSPECIFIC ST \T\ T-WAVE ABNORMALITY ABNORMAL RHYTHM ECG CONDUCTION DELAY HAS IMPROVED Electronically Signed By: Shaila Fuentes MD Teresa Knox MD ECG ORDERABLES Final Result Performing Organization Address [facility] Co de Phone Number [facility] [employer] [facility] * POCT glucose (10/14/2024 8:35 PM RN QUALITY) Glucose, POC 147 70 - 199 mg/dL Blood 10/14/2024 8:35 PM RN QUALITY 10/14/2024 8:35 PM RN QUALITY Guillermo Mayes MD LAB POCT ORDERABLES - DEVICE Final Result Performing Organization Address City/[facility] Co de Phone Number NICOLE [address] [facility] Department [place] [address] * TRANSTHORACIC ECHO (TTE) COMPLETE W DOPPLER/CF WO CONTRAST (10/14/2024 9:52 AM RN QUALITY) LV EF 55 % CONS SCIMAGE Anatomical Region Laterality Modality Ultrasound 10/14/2024 7:18 AM RN QUALITY Narrative 10/14/2024 11:25 [place] [address] Echocardiogram Report Patient Name: TREVOR SHAW : 1945 Study Date: 10/14/2024 7:18:19 AM Gender: M Tech: NM Location: [id number] Ref Provider: MIGDALIA SALCEDO Height(Cm): 183 BSA: 2.44 Weight(Kg): 117 Heart Rate: 94 BP: 128 / 73 Quality: Technically Difficult Study Order Provider: MIGDALIA SALCEDO PROCEDURES: Echocardiographic Report: Transthoracic echocardiogram with complete 2D, M-Mode, and color Doppler examination. INDICATIONS: S/P CABG, and AVR. MEASUREMENTS: 2D/MM Value Range Doppler Value Range EF Teich 2D 54.0 percent [ 52.0 - 72.0 ] GENARO Vmax 1.94 cm2 Estimated EF 55 % AV Mean PG 3 mmHg LVIDd 2D 4.45 cm [ 4.20 - 5.80 ] AV Peak Matias 1.21 m/s [ 1.00 - 1.70 ] LVIDs 2D 3.21 cm [ 2.50 - 4.00 ] AV VTI 20.75 cm LVPWd 2D 1.27 cm [ 0.60 - 1.00 ] LVOT Diam 2.02 cm IVSd 2D 1.50 cm [ 0.60 - 1.00 ] LVOT Peak Matias 0.73 m/s [ 0.70 - 1.10 ] LA Dimension 2D 3.90 cm [ 3.00 - 4.00 ] LVOT VTI 11.89 cm LA Dimension MM 4.25 cm [ 3.00 - 4.00 ] SI LVOT 16.0 ml/m2 [ >= 35.0 ] AoR Diam MM 3.35 cm [ 3.10 - 3.70 ] MV E Peak Matias 0.88 m/s [ 0.60 - 1.30 ] ACS MM 1.95 cm [ 1.50 - 2.60 ] MV A Peak Matias 1.34 m/s [ 1.00 - 1.20 ] MV Mean PG 4 mmHg MV PHT 68 msec [ 20 - 100 ] MVA PHT 3.26 cm2 MV Decel Time 233 msec [ 104 - 258 ] PV Peak Matias 1.37 m/s [ 0.40 - 0.80 ] TR Peak Matias 2.43 m/s [ 1.00 - 2.80 ] TR Peak PG 24 mmHg E` 0.07 m/s E/E` 17.24 2D/MM Value Range Doppler Value Range - FINDINGS: Atrial Septum: The atrial septum is not well visualized. Left Ventricle: Normal left ventricular size. Mild concentric left ventricular hypertrophy. Impaired diastolic relaxation Grade I. Ejection Fraction is visually estimated to be 55 %. Left Atrium: There is mild enlargement of left atrium. Right Ventricle: Normal right ventricular size. Normal right ventricular systolic function. Right Atrium: The right atrium is normal in size. Aortic Valve: No evidence of hemodynamically significant aortic stenosis by Doppler. No aortic regurgitation. Mean gradient of 3.0 mmHg. Valve area of 2 cm2. Normal appearing aortic valve prosthesis. Gradients normal for valve type and size. Mitral Valve: Moderate mitral annular calcification. There is no hemodynamically significant mitral stenosis by Doppler. No mitral valve regurgitation is seen. Pulmonic Valve: Normal structure of the pulmonic valve. No evidence of pulmonic regurgitation. Tricuspid Valve: Normal structure of the tricuspid valve. Estimated peak RVSP is 27 mmHg. Mild tricuspid regurgitation. Pericardium: Moderate pericardial effusion. No echocardiographic evidence to suggest pericardial tamponade. Aorta: Sinus of Valsalva is normal. IVC: The IVC is not well visualized. Pulmonary Artery: Pulmonary artery not well visualized. CONCLUSIONS: Technically difficult study with limited views. Normal left ventricular size. Mild concentric left ventricular hypertrophy. Impaired diastolic relaxation Grade I. Ejection Fraction is visually estimated to be 55 %. There is mild enlargement of left atrium. No evidence of hemodynamically significant aortic stenosis by Doppler. No aortic regurgitation. Mean gradient of 3.0 mmHg. Valve area of 2 cm2. Normal appearing aortic valve prosthesis. Gradients normal for valve type and size. Estimated peak RVSP is 27 mmHg. Mild tricuspid regurgitation. Electronically Signed By: Dr. Tracey Drew [facility] 10/14/2024 11:24:11 AM RN QUALITY Procedure Note Tracey Drew MD - 10/14/2024 [place] [address] Echocardiogram Report Patient Name: TREVOR SHAW : 1945 Study Date: 10/14/2024 7:18:19 AM Gender: M Tech: NM Location: [id number] [facility] Provider: MIGDALIA SALCEDO Height(Cm): 183 BSA: 2.44 Weight(Kg): 117 Heart Rate: 94 BP: 128 / 73 Quality: Technically Difficult Study Order Provider: MIGDALIA SALCEDO PROCEDURES: Echocardiographic Report: Transthoracic echocardiogram with complete 2D, M-Mode, and color Dopplerexamination. INDICATIONS: S/P CABG, and AVR. MEASUREMENTS: 2D/MM Value Range DopplerValue Range EF Teich 2D 54.0 percent [ 52.0 - 72.0 ] GENARO Vmax1.94 cm2 Estimated EF 55 % AV Mean PG 3mmHg LVIDd 2D 4.45 cm [ 4.20 - 5.80 ] AV Peak Vel1.21 m/s [ 1.00 - 1.70 ] LVIDs 2D 3.21 cm [ 2.50 - 4.00 ] AV VTI20.75 cm LVPWd 2D 1.27 cm [ 0.60 - 1.00 ] LVOT Diam2.02 cm IVSd 2D 1.50 cm [ 0.60 - 1.00 ] LVOT Peak Vel0.73 m/s [ 0.70 - 1.10 ] LA Dimension 2D 3.90 cm [ 3.00 - 4.00 ] LVOT VTI11.89 cm LA Dimension MM 4.25 cm [ 3.00 - 4.00 ] SI LVOT16.0 ml/m2 [ >= 35.0 ] AoR Diam MM 3.35 cm [ 3.10 - 3.70 ] MV E Peak Vel0.88 m/s [ 0.60 - 1.30 ] ACS MM 1.95 cm [ 1.50 - 2.60 ] MV A Peak Vel1.34 m/s [ 1.00 - 1.20 ] MV Mean PG 4 mmHg MV PHT 68 msec [ 20 - 100 ] MVA PHT 3.26 cm2 MV Decel Time 233 msec [ 104 - 258 ] PV Peak Matias 1.37 m/s [ 0.40 - 0.80 ] TR Peak Matias 2.43 m/s [ 1.00 - 2.80 ] TR Peak PG 24 mmHg E` 0.07 m/s E/E` 17.24 2D/MM Value Range DopplerValue Range - FINDINGS: Atrial Septum: The atrial septum is not well visualized. Left Ventricle: Normal left ventricular size. Mild concentric left ventricularhypertrophy. Impaired diastolic relaxation Grade I. Ejection Fraction is visually estimated rush 55 %. Left Atrium: There is mild enlargement of left atrium. Right Ventricle: Normal right ventricular size. Normal right ventricular systolicfunction. Right Atrium: The right atrium is normal in size. Aortic Valve: No evidence of hemodynamically significant aortic stenosis by Doppler. Noaortic regurgitation. Mean gradient of 3.0 mmHg. Valve area of 2 cm2. Normalappearing aortic valve prosthesis. Gradients normal for valve type and size. Mitral Valve: Moderate mitral annular calcification. There is no hemodynamicallysignificant mitral stenosis by Doppler. No mitral valve regurgitation is seen. Pulmonic Valve: Normal structure of the pulmonic valve. No evidence of pulmonicregurgitation. Tricuspid Valve: Normal structure of the tricuspid valve. Estimated peak RVSP is 27 mmHg.Mild tricuspid regurgitation. Pericardium: Moderate pericardial effusion. No echocardiographic evidence to suggestpericardial tamponade. Aorta: Sinus of Valsalva is normal. IVC: The IVC is not well visualized. Pulmonary Artery: Pulmonary artery not well visualized. CONCLUSIONS: Technically difficult study with limited views. Normal left ventricular size. Mild concentric left ventricularhypertrophy. Impaired diastolic relaxation Grade I. Ejection Fraction is visually estimated rush 55 %. There is mild enlargement of left atrium. No evidence of hemodynamically significant aortic stenosis by Doppler. Noaortic regurgitation. Mean gradient of 3.0 mmHg. Valve area of 2 cm2. Normalappearing aortic valve prosthesis. Gradients normal for valve type and size. Estimated peak RVSP is 27 mmHg. Mild tricuspid regurgitation. Electronically Signed By: Dr. Tracey Drew [facility] 10/14/2024 11:24:11 AM RN QUALITY us Migdalia Salcedo NP CV ECHO PROCEDURES Final R esult * POCT glucose (10/14/2024 7:57 AM RN QUALITY) Glucose, POC 118 70 - 199 mg/dL Blood 10/14/2024 7:57 AM RN QUALITY 10/14/2024 7:57 AM RN QUALITY us Guillermo Mayes MD LAB POCT ORDERABLES - DEVICE Final Result Performing Organization Address City/State/[facility] Co de Phone Number [facility] [address] Department [place] [address] * XR Chest 1 View - Portable - in AM (10/14/2024 6:00 AM RN QUALITY) Anatomical Region Laterality Modality Body, Chest N/A Computed Radiogr aphy 10/14/2024 7:54 AM RN QUALITY Impressions 10/14/2024 7:54 AM RN QUALITY Pacer leads are intact. Right IJ central venous catheter terminates in the superior cavoatrial junction. No pneumothorax or pleural effusion. Mediastinal silhouette within normal limits. Poststernotomy changes noted. Mild pulmonary vascular congestion. Electronically signed by: Jj Grubbs II, D.O. Narrative 10/14/2024 7:54 AM RN QUALITY EXAMINATION: XR CHEST 1 VIEW DATE: 10/14/2024 5:35 AM INDICATION: Cardiac surgery. COMPARISON: 10/13/2024. Procedure Note Jj Grubbs II, DO - 10/14/2024 EXAMINATION: XR CHEST 1 VIEW DATE: 10/14/2024 5:35 AM INDICATION: Cardiac surgery. COMPARISON: 10/13/2024. IMPRESSION: Pacer leads are intact. Right IJ central venous catheter terminates in the superior cavoatrial junction. No pneumothorax or pleural effusion. Mediastinal silhouette within normal limits. Poststernotomy changes noted. Mild pulmonary vascular congestion. Electronically signed by: Jj Grubbs II, D.O. Guillermo Mayes MD IMG XR PROCEDURES Final Resu lt * (ABNORMAL) eGFR (10/14/2024 5:20 AM RN QUALITY) eGFR 56(L) >=60 mL/min/1. 73 m2 Comment: Interpretive Data Reference Interval Normal >/= 90 mL/min/1.73m2 Mildly decreased* 60 - 89 mL/min/1.73m2 Mildly to moderately decreased 45 - 59 mL/min/1.73m2 Moderately to severely decreased 30 - 44 mL/min/1.73m2 Severely decreased 15 - 29 mL/min/1.73m2 Kidney Failure < 15 mL/min/1.73m2 *Relative to young adult level Estimated glomerular filtration rate is determined by the 2020 CKD-EPI equation recommended by the National Kidney Foundation (A Unifying Approach to GFR Estimation: Recommendations of the NKF-ASK Task Force on Reassessing the Inclusion of Race in Diagnosing Kidney Disease, JASN 202). The CKD-EPI equation should not be used for patients with unstable renal function and has not been validated in children and those over 70. Current interpretive data was last reviewed 2021. Blood 10/14/2024 5:20 AM RN QUALITY 10/14/2024 5:30 AM RN QUALITY Yvette Russell [employer] LAB BLOOD ORDERABLES Fin al Result NICOLE RAYGOZA [address] Department [employer] [place], [place] [id number] * (ABNORMAL) CBC without differential (10/14/2024 5:20 AM RN QUALITY) WBC 10.5(H) 3.8 - 9.9 K/cumm Hgb 8.2(L) 13.0 - 17.5 g/dL [facility] Hct 24.8(L) 38.9 - 50.3 % [facility] Plt 192 150 - 400 K/cumm [facility] MPV 11.5 9.1 - 12.3 fL [facility] RBC 2.68(L) 4.30 - 5.80 M/cumm [facility] MCV 92.5 81.3 - 96.4 fL [facility] MCH 30.6 27.1 - 33.3 pg [facility] MCHC 33.1 32.3 - 35.7 g/dL [facility] RDW CV 14.5 11.1 - 14.9 % [facility] RDW SD 48.3(H) 35.7 - 48.1 fL [facility] NRBC abs 0.04(H) 0.00 - 0.01 K/cumm [facility] Blood 10/14/2024 5:20 AM RN QUALITY 10/14/2024 5:30 AM RN QUALITY us Guillermo Mayes MD LAB BLOOD ORDERABLES Final R esult NICOLE RAYGOZA [address] Department of [employer] [place], [place] [id number] * Magnesium (10/14/2024 5:20 AM RN QUALITY) Magnesium 2.2 1.4 - 2.5 mg/dL Blood 10/14/2024 5:20 AM RN QUALITY 10/14/2024 5:30 AM RN QUALITY us Yvette Russell NP LAB BLOOD ORDERABLES Fin al Result NICOLE RAYGOZA [address] Department [place] [address] * (ABNORMAL) Basic metabolic panel (10/14/2024 5:20 AM RN QUALITY) Sodium 140 135 - 145 mmol/L Potassium, pl 4.1 3.3 - 4.9 mmol/L [facility] Chloride 104 97 - 110 mmol/L [facility] CO2 21(L) 22 - 32 mmol/L [facility] Anion gap 15 2 - 15 mmol/L [facility] BUN 46(H) 6 - 25 mg/dL [facility] Creatinine 1.30 0.80 - 1.30 mg/dL [facility] Glucose 146 70 - 199 mg/dL [facility] Comment: Interpretive Data Fasting glucose >/= 126 mg/dl is diagnostic for diabetes. Fasting is defined as no caloric intake for at least 8 hours. Fasting glucose between 100 mg/dl to 125 mg/dl is diagnostic of prediabetes. In a patient with classic symptoms of hyperglycemia or hyperglycemic crisis, a random glucose >/= 200 mg/dl is diagnostic for diabetes. In the absence of unequivocal hyperglycemia, results should be confirmed by repeat testing. The classification and Diagnosis of Diabetes Diabetes Care 2021; 46: S19-S40. Current interpretive data was last revised 2022. Calcium 9.1 8.5 - 10.3 mg/dL [facility] Blood 10/14/2024 5:20 AM RN QUALITY 10/14/2024 5:30 AM RN QUALITY us Guillermo Mayes MD LAB BLOOD ORDERABLES Final R esult NICOLE RAYGOZA [address] Department [place] [address] * POCT glucose (10/13/2024 8:21 PM RN QUALITY) Glucose, POC 156 70 - 199 mg/dL Blood 10/13/2024 8:21 PM RN QUALITY 10/13/2024 8:21 PM RN QUALITY Guillermo Mayes MD LAB POCT ORDERABLES - DEVICE Final Result Performing Organization Address City/[facility] Co de Phone Number NICOLE RAYGOZA [address] [facility] [place] [address] * POCT glucose (10/13/2024 5:27 PM RN QUALITY) Glucose, POC 118 70 - 199 mg/dL Blood 10/13/2024 5:27 PM RN QUALITY 10/13/2024 5:27 PM RN QUALITY Guillermo Mayes MD LAB POCT ORDERABLES - DEVICE Final Result Performing Organization Address [facility] de Phone Number NICOLE RAYGOZA [address] Department [place] [address] * XR Chest 1 Vw Portable (10/13/2024 4:35 PM RN QUALITY) Anatomical Region Laterality Modality Body, Chest N/A Computed Radiogr aphy 10/13/2024 4:38 PM RN QUALITY Impressions 10/13/2024 4:38 PM RN QUALITY No pneumothorax. Electronically signed by: Elena Bower M.D. Narrative 10/13/2024 4:38 PM RN QUALITY EXAMINATION: XR CHEST 1 VIEW HISTORY: The patient is an 79-year-old male who has had placement of a left-sided transvenous pacemaker. Comparison is made with the previous study dated 10/13/2024. TECHNIQUE: AP portable view of the chest. FINDINGS: Since the study earlier in the day There has been interval placement of a left-sided transvenous pacemaker with the electrode tips in good position. No pneumothorax is seen. Cardiomegaly with aortic atherosclerosis. No failure. The distal tip of a retracted Bismarck-Fausto catheter is in the superior vena cava. Procedure Note Elena Bower MD - 10/13/2024 EXAMINATION: XR CHEST 1 VIEW HISTORY: The patient is an 79-year-old male who has had placement of a left-sided transvenous pacemaker. Comparison is made with the previous study dated 10/13/2024. TECHNIQUE: AP portable view of the chest. FINDINGS: Since the study earlier in the day There has been interval placement of a left-sided transvenous pacemaker with the electrode tips in good position. No pneumothorax is seen. Cardiomegaly with aortic atherosclerosis. No failure. The distal tip of a retracted Bismarck-Fausto catheter is in the superior vena cava. IMPRESSION: No pneumothorax. Electronically signed by: Elena Bower M.D. Teresa Knox MD IMG XR PROCEDURES Kamla l Result * ICD LEAD DUAL 2 LEADS PPM OR ICD (10/13/2024 3:51 PM RN QUALITY) Anatomical Region Laterality Modality X-Ray Angiograph y 10/13/2024 Narrative 10/19/2024 1:49 PM CDT [facility] Job ID: [id number] [facility] Document ID: [id number] Dictated date/time: [id number] PACEMAKER IMPLANTATION An 79-year-old patient, status post CABG and AVR, has developed episodes of PAF and asystole. Dual-chamber pacemaker recommended. REFERRING PHYSICIANS Dr. Flaca Giles and Dr. Mayes. IMPLANTING PHYSICIAN Dr. Knox. PROCEDURES 1. Implantation of a dual-chamber pacemaker system by [employer]. 2. Venogram. 3. Insertion of a Tyrx pouch. PROCEDURE He was brought to the orthodontic laboratory technician. Left neck subclavicular was prepped in the usual sterile fashion. 1% lidocaine with epi was used. Venogram obtained. Pacemaker pocket was created. Access obtained axillary subclavian vein. Two J wires were advanced over which a 7 SafeSheath and a 6 SafeSheath were advanced. Both the sheaths were flushed confirming venous return. Through the 7 sheath a [employer] ventricular pacing lead, [id number] was advanced to the RV apex, low ventricular septum and screwed in place. Through the second sheath, a [employer] atrial pacing lead [id number] was advanced to the atrial appendage and screwed in place. Thresholds: Atrium 0.4 milliseconds, 0.625 V, 342 ohms, 2 mV. Ventricle 0.4 millisecond, 0.5 V, 798 ohms, 12.2 mV. No extracardiac stimulation with 10 V cardiac pacing stimulus in either chambers. The leads were secured to subcutaneous tissues using 0 Ethibond, connected to a pacemaker generator from [employer] [id number] noted to be pacing and sensing appropriately. The pocket was irrigated with antibiotic solution. The generator was placed in the pocket with the Marcia sprinkled in the pocket for diffuse oozing and a Tyrx pouch, and an 0 Ethibond header stitch. Deep tissues 2-0 Monocryl, superficial 4-0 Monocryl and topical Dermabond was applied. Chest x-ray, ECG will be obtained. Antibiotic and pain medications were ordered. CONCLUSIONS 1. Successful implantation of a dual-chamber pacemaker system from [employer]. 2. Insertion of a Tyrx pouch. 3. Venogram. Job ID/Internal Job ID: [id number] Britton Larson NP CV ELECTROPHYSIOLOGY PROCS F inal Result * POCT glucose (10/13/2024 12:45 PM RN QUALITY) [facility] Signature Glucose, POC 120 70 - 199 mg/dL Blood 10/13/2024 12:4 5 PM RN QUALITY 10/13/2024 12:45 PM RN QUALITY Guillermo Mayes MD LAB POCT ORDERABLES - DEVICE Final Result Performing Organization Address City/State/[facility] Co pa Phone Number [facility] [address] Department [place] [address] * ECG 12 lead (10/13/2024 11:59 AM RN QUALITY) 10/13/2024 11:5 9 AM RN QUALITY Narrative [facility] - 10/13/2024 3:23 PM RN QUALITY Vent Rate: 113 bpm RR Interval: 527 msec LA Interval: 160 msec QRS Duration: 134 msec QT Interval: 351 msec QTC Interval: 418 msec P-R-T Afton: 68 - -11 - 69 degrees IMPRESSION: SINUS TACHYCARDIA INTRAVENTRICULAR CONDUCTION DELAY [130+ ms QRS DURATION] ABNORMAL ECG NO CHANGE FROM PREVIOUS TRACING NOTED Electronically Signed By: Jeffrey Li MD Carmen Peñaloza [employer] ECG ORDERABLES Final Result Performing Organization Address [facility] de Phone Number [facility] [employer] [facility] * ECG 12 lead (10/13/2024 9:36 AM RN QUALITY) 10/13/2024 9:36 AM RN QUALITY Narrative [facility] - 10/13/2024 11:18 AM RN QUALITY Vent Rate: 107 bpm RR Interval: 557 msec LA Interval: 109 msec QRS Duration: 141 msec QT Interval: 445 msec QTC Interval: 508 msec P-R-T Afton: -9 - 99 - 111 degrees IMPRESSION: ELECTRONIC ATRIAL PACEMAKER BORDERLINE RIGHT AXIS DEVIATION [QRS AXIS > 90] INTRAVENTRICULAR CONDUCTION DELAY [130+ ms QRS DURATION] INFERIOR MYOCARDIAL INFARCTION , POSSIBLY ACUTE [40+ ms Q WAVE AND/OR ST/T ABNORMALITY IN II/aVF] MARKED ST ELEVATION, CONSIDER ANTEROSEPTAL INJURY [MARKED ST ELEVATION W/O NORMALLY INFLECTED T-WAVE IN V1-V4] ACUTE OH PACER ACTIVITY NEW ST ELEVATIONS MORE MARKED Electronically Signed By: Kacy Knox MD us Migdalia Salcedo [employer] ECG ORDERABLES Final Resu lt Performing Organization Address [facility] Phone Number [facility] [employer] [facility] * POCT glucose (10/13/2024 7:56 AM RN QUALITY) Glucose, POC 114 70 - 199 mg/dL Blood 10/13/2024 7:56 AM RN QUALITY 10/13/2024 7:56 AM RN QUALITY us Guillermo Mayes MD LAB POCT ORDERABLES - DEVICE Final Result Performing Organization Address [facility] Co pa Phone Number NICOLE [address] [address] Department [place] [address] * XR Chest 1 View - Portable - in AM (10/13/2024 6:24 AM RN QUALITY) Anatomical Region Laterality Modality Body, Chest N/A Computed Radiogr aphy 10/13/2024 8:40 AM RN QUALITY Impressions 10/13/2024 8:40 AM RN QUALITY No failure. Electronically signed by: Elena Bower M.D. Narrative 10/13/2024 8:40 AM RN QUALITY EXAMINATION: XR CHEST 1 VIEW HISTORY: The patient is an 79-year-old male who has had cardiac surgery. Comparison is made with the previous study dated 10/12/2024. TECHNIQUE: AP portable view of the chest. FINDINGS: Borderline cardiomegaly with aortic atherosclerosis. No failure. Subsegmental atelectasis is seen in the left upper lobe with the remaining lungs being clear. The distal tip of a retracted Bismarck-Fausto catheter is in the superior vena cava. Procedure Note Elena Bower MD - 10/13/2024 EXAMINATION: XR CHEST 1 VIEW HISTORY: The patient is an 79-year-old male who has had cardiac surgery. Comparison is made with the previous study dated 10/12/2024. TECHNIQUE: AP portable view of the chest. FINDINGS: Borderline cardiomegaly with aortic atherosclerosis. No failure. Subsegmental atelectasis is seen in the left upper lobe with the remaining lungs being clear. The distal tip of a retracted Bismarck-Fausto catheter is in the superior vena cava. IMPRESSION: No failure. Electronically signed by: Elena Bower M.D. Guillermo Mayes MD IMG XR PROCEDURES Final Resu lt * eGFR (10/13/2024 5:50 AM RN QUALITY) eGFR 61 >=60 mL/min/1. 73 m2 Comment: Interpretive Data Reference Interval Normal >/= 90 mL/min/1.73m2 Mildly decreased* 60 - 89 mL/min/1.73m2 Mildly to moderately decreased 45 - 59 mL/min/1.73m2 Moderately to severely decreased 30 - 44 mL/min/1.73m2 Severely decreased 15 - 29 mL/min/1.73m2 Kidney Failure < 15 mL/min/1.73m2 *Relative to young adult level Estimated glomerular filtration rate is determined by the 2020 CKD-EPI equation recommended by the National Kidney Foundation (A Unifying Approach to GFR Estimation: Recommendations of the NKF-ASK Task Force on Reassessing the Inclusion of Race in Diagnosing Kidney Disease, JASN 2020). The CKD-EPI equation should not be used for patients with unstable renal function and has not been validated in children and those over 70. Current interpretive data was last reviewed 2021. Blood 10/13/2024 5:5 0 AM RN QUALITY 10/13/2024 5:50 AM RN QUALITY Yvette Russell [employer] LAB BLOOD ORDERABLES Fin al Result NICOLE RAYGOZA [address] Department [place] [address] * aPTT (10/13/2024 5:50 AM RN QUALITY) aPTT 28 28 - 38 sec Comment: Interpretive Data Heparin therapeutic range: 66.0 - 100.0 seconds. Range based on correlation with therapeutic heparin activity range of 0.3 - 0.7 Units/mL. Current interpretive data was last revised on 2023. Blood 10/13/2024 5:50 AM RN QUALITY 10/13/2024 5:50 AM RN QUALITY Migdalia Salcedo [employer] LAB BLOOD ORDERABLES Final Result NICOLE RAYGOZA [address] Department [place] [address] * Protime-INR (10/13/2024 5:50 AM RN QUALITY) PT 12.1 9.7 - 13.0 sec INR 1.12 0.90 - 1.20 NICOLE RAYGOZA Comment: Interpretive data Oral anticoagulant therapeutic ranges: Venous thromboembolism prophylaxis or treatment: 2.0-3.0 CARDIOLOGY Standard range: 2.0-3.0 High-intensity range: 2.5-3.5 Refer to indication-specific guidelines for appropriate target ranges for prosthetic heart valve replacement. Current interpretive data was last revised on 2019. Blood 10/13/2024 5:50 AM RN QUALITY 10/13/2024 5:50 AM RN QUALITY us Migdalia Salcedo NP LAB BLOOD ORDERABLES Final Result Performing Organization Address City/[facility]/ZIP Co de Phone Number NICOLE RAYGOZA [address] [employer] [place], [place] [phone] * (ABNORMAL) CBC without differential (10/13/2024 5:50 AM RN QUALITY) WBC 8.6 3.8 - 9.9 K/cumm Hgb 8.1(L) 13.0 - 17.5 g/dL [facility] Hct 24.7(L) 38.9 - 50.3 % [facility] Plt 135(L) 150 - 400 K/cumm [facility] MPV 12.0 9.1 - 12.3 fL [facility] RBC 2.68(L) 4.30 - 5.80 M/cumm [facility] MCV 92.2 81.3 - 96.4 fL [facility] MCH 30.2 27.1 - 33.3 pg [facility] MCHC 32.8 32.3 - 35.7 g/dL [facility] RDW CV 14.4 11.1 - 14.9 % [facility] RDW SD 48.3(H) 35.7 - 48.1 fL [facility] NRBC abs 0.00 0.00 - 0.01 K/cumm [facility] Blood 10/13/2024 5:50 AM RN QUALITY 10/13/2024 5:50 AM RN QUALITY us Guillermo Mayes MD LAB BLOOD ORDERABLES Final R esult NICOLE RAYGOZA [address] Department of [employer] [place], [place] [id number] * Magnesium (10/13/2024 5:50 AM RN QUALITY) Magnesium 2.2 1.4 - 2.5 mg/dL Blood 10/13/2024 5:50 AM RN QUALITY 10/13/2024 5:50 AM RN QUALITY Yvette Russell NP LAB BLOOD ORDERABLES Fin al Result NICOLE RAYGOZA [address] [address] Department [place] [address] * (ABNORMAL) Basic metabolic panel (10/13/2024 5:50 AM RN QUALITY) Sodium 140 135 - 145 mmol/L Potassium, pl 3.6 3.3 - 4.9 mmol/L [facility] Chloride 105 97 - 110 mmol/L [facility] CO2 23 22 - 32 mmol/L [facility] Anion gap 12 2 - 15 mmol/L [facility] BUN 37(H) 6 - 25 mg/dL [facility] Creatinine 1.20 0.80 - 1.30 mg/dL [facility] Glucose 136 70 - 199 mg/dL [facility] Comment: Interpretive Data Fasting glucose >/= 126 mg/dl is diagnostic for diabetes. Fasting is defined as no caloric intake for at least 8 hours. Fasting glucose between 100 mg/dl to 125 mg/dl is diagnostic of prediabetes. In a patient with classic symptoms of hyperglycemia or hyperglycemic crisis, a random glucose >/= 200 mg/dl is diagnostic for diabetes. In the absence of unequivocal hyperglycemia, results should be confirmed by repeat testing. The classification and Diagnosis of Diabetes Diabetes Care 2021; 46: S19-S40. Current interpretive data was last revised 2022. Calcium 9.1 8.5 - 10.3 mg/dL [facility] Blood 10/13/2024 5:50 AM RN QUALITY 10/13/2024 5:50 AM RN QUALITY us Guillermo Mayes MD LAB BLOOD ORDERABLES Final R esult NICOLE RAYGOZA [address] Department [place] [address] * POCT glucose (10/12/2024 9:59 PM RN QUALITY) Glucose, POC 125 70 - 199 mg/dL Blood 10/12/2024 9:59 PM RN QUALITY 10/12/2024 9:59 PM RN QUALITY us Guillermo Mayes MD LAB POCT ORDERABLES - DEVICE Final Result Performing Organization Address [facility] de Phone Number NICOLE [address] [address] [facility] [place] [address] * POCT glucose (10/12/2024 9:27 PM RN QUALITY) Glucose, POC 137 70 - 199 mg/dL Blood 10/12/2024 9:27 PM RN QUALITY 10/12/2024 9:27 PM RN QUALITY us Guillermo Mayes MD LAB POCT ORDERABLES - DEVICE Final Result Performing Organization Address [facility] de Phone Number LORINACE [address] [address] [facility] [place] [address] * POCT glucose (10/12/2024 5:44 PM RN QUALITY) Glucose, POC 115 70 - 199 mg/dL Blood 10/12/2024 5:44 PM RN QUALITY 10/12/2024 5:44 PM RN QUALITY Guillermo Mayes MD LAB POCT ORDERABLES - DEVICE Final Result Performing Organization Address [facility] de Phone Number NICOLE [address] [address] [facility] [place] [address] * POCT glucose (10/12/2024 1:00 PM RN QUALITY) Glucose, POC 140 70 - 199 mg/dL Blood 10/12/2024 1:00 PM RN QUALITY 10/12/2024 1:00 PM RN QUALITY us Guillermo Mayes MD LAB POCT ORDERABLES - DEVICE Final Result Performing Organization Address [facility] [place] [address] [address] Liu Department [place] [address] * POCT glucose (10/12/2024 7:53 AM RN QUALITY) Glucose, POC 131 70 - 199 mg/dL Blood 10/12/2024 7:53 AM RN QUALITY 10/12/2024 7:53 AM RN QUALITY Guillermo Mayes MD LAB POCT ORDERABLES - DEVICE Final Result Performing Organization Address [facility] Co de Phone Number NICOLE RAYGOZA [address] [address] Department [place] [address] * XR Chest 1 View - Portable - in AM (10/12/2024 6:11 AM RN QUALITY) Anatomical Region Laterality Modality Body, Chest N/A Computed Radiogr aphy 10/12/2024 8:39 AM RN QUALITY Impressions 10/12/2024 8:39 AM RN QUALITY Cardiomegaly with no failure. Electronically signed by: Elena Bower M.D. Narrative 10/12/2024 8:39 AM RN QUALITY EXAMINATION: XR CHEST 1 VIEW HISTORY: The patient is an 79-year-old male who has had cardiac surgery. Comparison is made with the previous study dated 10/11/2024. TECHNIQUE: AP portable view of the chest is compared with the previous study dated 10/11/2024. FINDINGS: Lungs clear.. Borderline cardiomegaly with aortic atherosclerosis. No failure. Interval removal of the bilateral thoracostomy tubes with no pneumothorax. The distal tip of the retracted [place]-Fausto catheter is in the superior vena cava. Procedure Note Elena Bower MD - 10/12/2024 EXAMINATION: XR CHEST 1 VIEW HISTORY: The patient is an 79-year-old male who has had cardiac surgery. Comparison is made with the previous study dated 10/11/2024. TECHNIQUE: AP portable view of the chest is compared with the previous study dated 10/11/2024. FINDINGS: Lungs clear.. Borderline cardiomegaly with aortic atherosclerosis. No failure. Interval removal of the bilateral thoracostomy tubes with no pneumothorax. The distal tip of the retracted [place]-Fausto catheter is in the superior vena cava. IMPRESSION: Cardiomegaly with no failure. Electronically signed by: Elena Bower M.D. us Guillermo Mayes MD IMG XR PROCEDURES Final Resu lt * eGFR (10/12/2024 4:30 AM RN QUALITY) eGFR 62 >=60 mL/min/1. 73 m2 Comment: Interpretive Data Reference Interval Normal >/= 90 mL/min/1.73m2 Mildly decreased* 60 - 89 mL/min/1.73m2 Mildly to moderately decreased 45 - 59 mL/min/1.73m2 Moderately to severely decreased 30 - 44 mL/min/1.73m2 Severely decreased 15 - 29 mL/min/1.73m2 Kidney Failure < 15 mL/min/1.73m2 *Relative to young adult level Estimated glomerular filtration rate is determined by the 2020 CKD-EPI equation recommended by the National Kidney Foundation (A Unifying Approach to GFR Estimation: Recommendations of the NKF-ASK Task Force on Reassessing the Inclusion of Race in Diagnosing Kidney Disease, JASN 2020). The CKD-EPI equation should not be used for patients with unstable renal function and has not been validated in children and those over 70. Current interpretive data was last reviewed 2021. Blood 10/12/2024 4:30 AM RN QUALITY 10/12/2024 5:11 AM RN QUALITY us Yvette Russell [employer] LAB BLOOD ORDERABLES Fin al Result NICOLE RAYGOZA [address] [address] Liu Department [place] [address] * (ABNORMAL) CBC without differential (10/12/2024 4:30 AM RN QUALITY) WBC 9.7 3.8 - 9.9 K/cumm Hgb 8.9(L) 13.0 - 17.5 g/dL NICOLE RAYGOZA Hct 27.8(L) 38.9 - 50.3 % [facility] Plt 101(L) 150 - 400 K/cumm [facility] MPV 12.3 9.1 - 12.3 fL [facility] RBC 2.91(L) 4.30 - 5.80 M/cumm [facility] MCV 95.5 81.3 - 96.4 fL [facility] MCH 30.6 27.1 - 33.3 pg [facility] MCHC 32.0(L) 32.3 - 35.7 g/dL [facility] RDW CV 14.5 11.1 - 14.9 % [facility] RDW SD 50.0(H) 35.7 - 48.1 fL [facility] NRBC abs 0.00 0.00 - 0.01 K/cumm [facility] Blood 10/12/2024 4:30 AM RN QUALITY 10/12/2024 5:08 AM RN QUALITY Guillermo Mayes MD LAB BLOOD ORDERABLES Final R esult Performing Organization Address [facility] Co de Phone Number [facility] [address] Department [employer] [place], [place] [id number] * Magnesium (10/12/2024 4:30 AM RN QUALITY) [facility] Magnesium 2.2 1.4 - 2.5 mg/dL Blood 10/12/2024 4:30 AM RN QUALITY 10/12/2024 5:11 AM RN QUALITY Yvette Russell NP LAB BLOOD ORDERABLES Fin al Result Performing Organization Address [facility] Co de Phone Number [facility] [address] [place] [address] * (ABNORMAL) Basic metabolic panel (10/12/2024 4:30 AM RN QUALITY) Pathologist [facility] Sodium 141 135 - 145 mmol/L Potassium, pl 4.1 3.3 - 4.9 mmol/L [facility] Chloride 106 97 - 110 mmol/L [facility] CO2 22 22 - 32 mmol/L [facility] Anion gap 13 2 - 15 mmol/L [facility] BUN 30(H) 6 - 25 mg/dL [facility] Creatinine 1.19 0.80 - 1.30 mg/dL [facility] Glucose 122 70 - 199 mg/dL [facility] Comment: Interpretive Data Fasting glucose >/= 126 mg/dl is diagnostic for diabetes. Fasting is defined as no caloric intake for at least 8 hours. Fasting glucose between 100 mg/dl to 125 mg/dl is diagnostic of prediabetes. In a patient with classic symptoms of hyperglycemia or hyperglycemic crisis, a random glucose >/= 200 mg/dl is diagnostic for diabetes. In the absence of unequivocal hyperglycemia, results should be confirmed by repeat testing. The classification and Diagnosis of Diabetes Diabetes Care 2021; 46: S19-S40. Current interpretive data was last revised 2022. Calcium 8.9 8.5 - 10.3 mg/dL [facility] Blood 10/12/2024 4:30 AM RN QUALITY 10/12/2024 5:11 AM RN QUALITY Guillermo Mayes MD LAB BLOOD ORDERABLES Final R esult Performing Organization Address City/[facility] Co de Phone Number [facility] [address] [address] [place] [address] * POCT glucose (10/11/2024 8:46 PM RN QUALITY) Glucose, POC 149 70 - 199 mg/dL Blood 10/11/2024 8:46 PM RN QUALITY 10/11/2024 8:46 PM RN QUALITY Guillermo Mayes MD LAB POCT ORDERABLES - DEVICE Final Result Performing Organization Address City/[facility]/ZIP Co de Phone Number [facility] [address] [address] [facility] [place] [address] * POCT glucose (10/11/2024 5:13 PM RN QUALITY) Glucose, POC 194 70 - 199 mg/dL Blood 10/11/2024 5:13 PM RN QUALITY 10/11/2024 5:13 PM RN QUALITY Guillermo Mayes MD LAB POCT ORDERABLES - DEVICE Final Result Performing Organization Address [facility] Phone Number NICOLE [address] [place] [address] * POCT glucose (10/11/2024 12:12 PM RN QUALITY) Glucose, POC 160 70 - 199 mg/dL Blood 10/11/2024 12:1 2 PM RN QUALITY 10/11/2024 12:12 PM RN QUALITY Guillermo Mayes MD LAB POCT ORDERABLES - DEVICE Final Result Performing Organization Address [facility] Phone Number NICOLE [address] [place] [address] * POCT glucose (10/11/2024 8:24 AM RN QUALITY) Glucose, POC 144 70 - 199 mg/dL Blood 10/11/2024 8:24 AM RN QUALITY 10/11/2024 8:24 AM RN QUALITY Guillermo Mayes MD LAB POCT ORDERABLES - DEVICE Final Result Performing Organization Address [facility] Phone Number NICOLE [address] [place] [address] * Critical Care (10/11/2024 6:32 AM RN QUALITY) Narrative Case Guerrero MD - 10/11/2024 6:32 AM RN QUALITY Case Guerrero MD 10/11/2024 1:49 PM Critical Care Performed by: Yvette Russell NP Authorized by: Yvette Russell NP CRITICAL CARE: Team: JUDY Shift: AM Level of Billing: Critical Care My time spent with this patient was 90 minutes: Critical Provider Statement: I have seen and examined the patient on this day of service. I have reviewed and confirmed the history, physical exam, laboratory and radiologic data as documented in the signed ICU note. I have reviewed and discussed my treatment plan with the ICU team and other medical/medical consultant staff, making frequent assessments and decisions regarding this patient's complex medical care. Critical Care time was exclusive of time spent performing separately billed procedures, treating other patients, and teaching. This time was in addition to and separate from critical care provided by other practitioners in my group on this day of service. Critical Care was necessary to treat or prevent imminent or life-threatening deterioration of the following conditions: I spent time reviewing and interpreting data from bedside monitors, laboratory results, and imaging, I spent time discussing the management of this critically ill patient with consultants and the medical staff and I spent time documenting in the medical record us Yvette Russell [employer] IN CLINIC/BEDSIDE ORDERA BLES Final Result * XR Chest 1 View - Portable - in AM (10/11/2024 5:59 AM RN QUALITY) Anatomical Region Laterality Modality Body, Chest N/A Computed Radiogr aphy 10/11/2024 9:45 AM RN QUALITY Impressions 10/11/2024 9:45 AM RN QUALITY FINDINGS/IMPRESSION: No pneumothorax or pleural effusion. Bilateral thoracostomy tubes. Poststernotomy changes. Pulmonary arterial catheter is appropriately positioned. Mediastinal drain is appropriately positioned. No consolidation. Electronically signed by: Jj Grubbs II, D.O. Narrative 10/11/2024 9:45 AM RN QUALITY EXAMINATION: XR CHEST 1 VIEW DATE: 10/11/2024 5:40 AM INDICATION: Cardiac surgery. COMPARISON: 10/10/2020. Procedure Note Jj Grubbs II, DO - 10/11/2024 EXAMINATION: XR CHEST 1 VIEW DATE: 10/11/2024 5:40 AM INDICATION: Cardiac surgery. COMPARISON: 10/10/2020. IMPRESSION: FINDINGS/IMPRESSION: No pneumothorax or pleural effusion. Bilateral thoracostomy tubes. Poststernotomy changes. Pulmonary arterial catheter is appropriately positioned. Mediastinal drain is appropriately positioned. No consolidation. Electronically signed by: Jj Grubbs II, D.O. us Guillermo Mayes MD IMG XR PROCEDURES Final Resu lt * Oxyhemoglobin, pulmonary artery (10/11/2024 5:30 AM RN QUALITY) Oxyhemoglobin, PA 71.3 % Comment: Interpretive Data No reference range established. Current interpretive data was last revised 2019. Blood 10/11/2024 5:30 AM RN QUALITY 10/11/2024 5:35 AM RN QUALITY Yvette Russell [employer] LAB BLOOD ORDERABLES Fin al Result Performing Organization Address [facility] Co de Phone Number NICOLE RAYGOZA [address] [address] Department [employer] [place], [place] [id number] * (ABNORMAL) Calcium, ionized, whole blood (10/11/2024 5:22 AM RN QUALITY) Ca, ionized, bld 4.49(L) 4.50 - 5.10 mg/dL Blood 10/11/2024 5:22 AM RN QUALITY 10/11/2024 5:50 AM RN QUALITY Yvette Russell [employer] LAB BLOOD ORDERABLES Fin al Result Performing Organization Address [facility] de Phone Number NICOLE RAYGOZA [address] [address] Department [employer] [place], [place] [id number] * (ABNORMAL) eGFR (10/11/2024 5:22 AM RN QUALITY) eGFR 58(L) >=60 mL/min/1. 73 m2 Comment: Interpretive Data Reference Interval Normal >/= 90 mL/min/1.73m2 Mildly decreased* 60 - 89 mL/min/1.73m2 Mildly to moderately decreased 45 - 59 mL/min/1.73m2 Moderately to severely decreased 30 - 44 mL/min/1.73m2 Severely decreased 15 - 29 mL/min/1.73m2 Kidney Failure < 15 mL/min/1.73m2 *Relative to young adult level Estimated glomerular filtration rate is determined by the 2020 CKD-EPI equation recommended by the National Kidney Foundation (A Unifying Approach to GFR Estimation: Recommendations of the NKF-ASK Task Force on Reassessing the Inclusion of Race in Diagnosing Kidney Disease, ANTHONYSN 2020). The CKD-EPI equation should not be used for patients with unstable renal function and has not been validated in children and those over 70. Current interpretive data was last reviewed 2021. Blood 10/11/2024 5:22 AM RN QUALITY 10/11/2024 5:50 AM RN QUALITY Guillermo Mayes MD LAB BLOOD ORDERABLES Final R esult Performing Organization Address City/[facility]/ZIP Co de Phone Number NICOLE RAYGOZA [address] [address] [place] [address] * (ABNORMAL) CBC without differential (10/11/2024 5:22 AM RN QUALITY) WBC 7.2 3.8 - 9.9 K/cumm Hgb 8.3(L) 13.0 - 17.5 g/dL [facility] Hct 24.6(L) 38.9 - 50.3 % [facility] Plt 85(L) 150 - 400 K/cumm [facility] MPV 11.2 9.1 - 12.3 fL [facility] RBC 2.74(L) 4.30 - 5.80 M/cumm [facility] MCV 89.8 81.3 - 96.4 fL [facility] MCH 30.3 27.1 - 33.3 pg [facility] MCHC 33.7 32.3 - 35.7 g/dL [facility] RDW CV 14.2 11.1 - 14.9 % [facility] RDW SD 45.5 35.7 - 48.1 fL [facility] NRBC abs 0.00 0.00 - 0.01 K/cumm [facility] Blood 10/11/2024 5:22 AM RN QUALITY 10/11/2024 5:31 AM RN QUALITY Guillermo Mayes MD LAB BLOOD ORDERABLES Final R esult Performing Organization Address City/[facility]/ZIP Co de Phone Number NICOLE RAYGOZA [address] [address] Liu [place] [address] * Phosphorus (10/11/2024 5:22 AM RN QUALITY) Pathologist [facility] Phosphorus, pl 3.3 2.3 - 4.5 mg/dL Blood 10/11/2024 5:22 AM RN QUALITY 10/11/2024 5:31 AM RN QUALITY Yvette Russell [employer] LAB BLOOD ORDERABLES Fin al Result Performing Organization Address [facility] de Phone Number [facility] [address] [address] [place] [address] * Magnesium (10/11/2024 5:22 AM RN QUALITY) Pathologist [facility] Magnesium 2.2 1.4 - 2.5 mg/dL Blood 10/11/2024 5:22 AM RN QUALITY 10/11/2024 5:31 AM RN QUALITY Yvette Russell [employer] LAB BLOOD ORDERABLES Fin al Result Performing Organization Address [facility] Phone Number [facility] [address] [address] [facility] [place] [address] * Basic metabolic panel (10/11/2024 5:22 AM RN QUALITY) Pathologist [facility] Sodium 142 135 - 145 mmol/L Potassium, pl 3.9 3.3 - 4.9 mmol/L [facility] Chloride 107 97 - 110 mmol/L [facility] CO2 23 22 - 32 mmol/L [facility] Anion gap 12 2 - 15 mmol/L [facility] BUN 21 6 - 25 mg/dL [facility] Creatinine 1.25 0.80 - 1.30 mg/dL [facility] Glucose 135 70 - 199 mg/dL [facility] Comment: Interpretive Data Fasting glucose >/= 126 mg/dl is diagnostic for diabetes. Fasting is defined as no caloric intake for at least 8 hours. Fasting glucose between 100 mg/dl to 125 mg/dl is diagnostic of prediabetes. In a patient with classic symptoms of hyperglycemia or hyperglycemic crisis, a random glucose >/= 200 mg/dl is diagnostic for diabetes. In the absence of unequivocal hyperglycemia, results should be confirmed by repeat testing. The classification and Diagnosis of Diabetes Diabetes Care 2021; 46: S19-S40. Current interpretive data was last revised 2022. Calcium 8.5 8.5 - 10.3 mg/dL NICOLE Blood 10/11/2024 5:22 AM RN QUALITY 10/11/2024 5:31 AM RN QUALITY Guillermo Mayes MD LAB BLOOD ORDERABLES Final R esult Performing Organization Address City/[facility] Co de Phone Number NICOLE [address] [address] [place] [address] * POCT glucose (10/11/2024 5:20 AM RN QUALITY) Glucose, POC 132 70 - 199 mg/dL Blood 10/11/2024 5:20 AM RN QUALITY 10/11/2024 5:20 AM RN QUALITY Guillermo Mayes MD LAB POCT ORDERABLES - DEVICE Final Result Performing Organization Address [facility] Co de Phone Number [facility] [address] [address] [facility] [place] [address] * POCT glucose (10/11/2024 4:26 AM RN QUALITY) Glucose, POC 126 70 - 199 mg/dL Blood 10/11/2024 4:26 AM RN QUALITY 10/11/2024 4:26 AM RN QUALITY Guillermo Mayes MD LAB POCT ORDERABLES - DEVICE Final Result Performing Organization Address [facility] Co de Phone Number [facility] [address] [address] [facility] [place] [address] * POCT glucose (10/11/2024 3:23 AM RN QUALITY) Glucose, POC 126 70 - 199 mg/dL Blood 10/11/2024 3:23 AM RN QUALITY 10/11/2024 3:23 AM RN QUALITY us Guillermo Mayes MD LAB POCT ORDERABLES - DEVICE Final Result Performing Organization Address [facility] Co de Phone Number NICOLE RAYGOZA [address] [address] [facility] [place] [address] * POCT glucose (10/11/2024 2:26 AM RN QUALITY) Glucose, POC 120 70 - 199 mg/dL Blood 10/11/2024 2:26 AM RN QUALITY 10/11/2024 2:26 AM RN QUALITY Guillermo Mayes MD LAB POCT ORDERABLES - DEVICE Final Result Performing Organization Address [facility] Phone Number NICOLE [address] [address] [facility] [place] [address] * POCT glucose (10/11/2024 1:28 AM RN QUALITY) Glucose, POC 120 70 - 199 mg/dL Blood 10/11/2024 1:28 AM RN QUALITY 10/11/2024 1:28 AM RN QUALITY us Guillermo Mayes MD LAB POCT ORDERABLES - DEVICE Final Result Performing Organization Address [facility] Co de Phone Number NICOLE [address] [address] [facility] [place] [address] * POCT glucose (10/11/2024 12:27 AM RN QUALITY) Glucose, POC 124 70 - 199 mg/dL Blood 10/11/2024 12:2 7 AM RN QUALITY 10/11/2024 12:27 AM RN QUALITY us Guillermo Mayes MD LAB POCT ORDERABLES - DEVICE Final Result Performing Organization Address [facility] Co de Phone Number NICOLE [address] [address] [facility] [place] [address] * POCT glucose (10/10/2024 11:26 PM RN QUALITY) Glucose, POC 112 70 - 199 mg/dL Blood 10/10/2024 11:2 6 PM RN QUALITY 10/10/2024 11:26 PM RN QUALITY Guillermo Mayes MD LAB POCT ORDERABLES - DEVICE Final Result Performing Organization Address [facility] de Phone Number NICOLE [address] [address] [facility] [place] [address] * POCT glucose (10/10/2024 10:27 PM RN QUALITY) Glucose, POC 120 70 - 199 mg/dL Blood 10/10/2024 10:2 7 PM RN QUALITY 10/10/2024 10:27 PM RN QUALITY Guillermo Mayes MD LAB POCT ORDERABLES - DEVICE Final Result Performing Organization Address [facility] de Phone Number NICOLE [address] [address] [facility] [place] [address] * POCT glucose (10/10/2024 9:26 PM RN QUALITY) Glucose, POC 118 70 - 199 mg/dL Blood 10/10/2024 9:26 PM RN QUALITY 10/10/2024 9:26 PM RN QUALITY Guillermo Mayes MD LAB POCT ORDERABLES - DEVICE Final Result Performing Organization Address [facility] [place] [address] [address] [facility] [place] [address] * Critical Care (10/10/2024 7:59 PM RN QUALITY) Narrative Deo Biggs MD - 10/10/2024 7:59 PM RN QUALITY Deo Biggs MD 10/11/2024 5:48 AM Critical Care Performed by: Tony Purdy NP Authorized by: Tony Purdy NP CRITICAL CARE: Team: JUDY Shift: PM Level of Billing: Critical Care My time spent with this patient was 60 minutes: Critical Provider Statement: I have seen and examined the patient on this day of service. I have reviewed and confirmed the history, physical exam, laboratory and radiologic data as documented in the signed ICU note. I have reviewed and discussed my treatment plan with the ICU team and other medical/medical consultant staff, making frequent assessments and decisions regarding this patient's complex medical care. Critical Care time was exclusive of time spent performing separately billed procedures, treating other patients, and teaching. This time was in addition to and separate from critical care provided by other practitioners in my group on this day of service. Critical Care was necessary to treat or prevent imminent or life-threatening deterioration of the following conditions: I spent time discussing the management of this critically ill patient with consultants and the medical staff, I spent time reviewing and interpreting data from bedside monitors, laboratory results, and imaging and I spent time documenting in the medical record us Tony Purdy [employer] IN CLINIC/BEDSIDE ORDER TEVIN Final Result * POCT glucose (10/10/2024 7:12 PM RN QUALITY) Glucose, POC 102 70 - 199 mg/dL Blood 10/10/2024 7:12 PM RN QUALITY 10/10/2024 7:12 PM RN QUALITY us Guillermo Mayes MD LAB POCT ORDERABLES - DEVICE Final Result Performing Organization Address [facility] [place] [address] [address] Liu [place] [address] * POCT glucose (10/10/2024 6:06 PM RN QUALITY) Glucose, POC 128 70 - 199 mg/dL Blood 10/10/2024 6:06 PM RN QUALITY 10/10/2024 6:06 PM RN QUALITY Guillermo Mayes MD LAB POCT ORDERABLES - DEVICE Final Result Performing Organization Address [facility] Co de Phone Number NICOLE RAYGOZA [address] [address] Liu [place] [address] * POCT glucose (10/10/2024 5:02 PM RN QUALITY) Glucose, POC 127 70 - 199 mg/dL Blood 10/10/2024 5:02 PM RN QUALITY 10/10/2024 5:02 PM RN QUALITY Guillermo Mayes MD LAB POCT ORDERABLES - DEVICE Final Result Performing Organization Address City/[facility] Co de Phone Number NICOLE [address] [address] [facility] [place] [address] * POCT glucose (10/10/2024 4:06 PM RN QUALITY) Glucose, POC 125 70 - 199 mg/dL Blood 10/10/2024 4:06 PM RN QUALITY 10/10/2024 4:06 PM RN QUALITY Guillermo Mayes MD LAB POCT ORDERABLES - DEVICE Final Result Performing Organization Address [facility] Co de Phone Number [facility] [address] [address] [facility] [place] [address] * POCT glucose (10/10/2024 3:02 PM RN QUALITY) Glucose, POC 116 70 - 199 mg/dL Blood 10/10/2024 3:02 PM RN QUALITY 10/10/2024 3:02 PM RN QUALITY Guillermo Mayes MD LAB POCT ORDERABLES - DEVICE Final Result Performing Organization Address City/[facility] Co de Phone Number [facility] [address] [address] [facility] [place] [address] * POCT glucose (10/10/2024 1:58 PM RN QUALITY) Glucose, POC 129 70 - 199 mg/dL Blood 10/10/2024 1:58 PM RN QUALITY 10/10/2024 1:58 PM RN QUALITY Result Abbi Mayes MD LAB POCT ORDERABLES - DEVICE Final Result NICOLE RAYGOZA [address] [address] [facility] [employer] [place], [place] [id number] * Calcium, ionized, whole blood (10/10/2024 1:54 PM RN QUALITY) Ca, ionized, bld 4.54 4.50 - 5.10 mg/dL Blood 10/10/2024 1:54 PM RN QUALITY 10/10/2024 2:04 PM RN QUALITY Result Abbi Mayes MD LAB BLOOD ORDERABLES Final R esult Performing Organization Address [facility] Co de Phone Number NICOLE RAYGOZA [address] [address] Department [place] [address] * eGFR (10/10/2024 1:54 PM RN QUALITY) eGFR 62 >=60 mL/min/1. 73 m2 Comment: Interpretive Data Reference Interval Normal >/= 90 mL/min/1.73m2 Mildly decreased* 60 - 89 mL/min/1.73m2 Mildly to moderately decreased 45 - 59 mL/min/1.73m2 Moderately to severely decreased 30 - 44 mL/min/1.73m2 Severely decreased 15 - 29 mL/min/1.73m2 Kidney Failure < 15 mL/min/1.73m2 *Relative to young adult level Estimated glomerular filtration rate is determined by the 2020 CKD-EPI equation recommended by the National Kidney Foundation (A Unifying Approach to GFR Estimation: Recommendations of the NKF-ASK Task Force on Reassessing the Inclusion of Race in Diagnosing Kidney Disease, JASN 2020). The CKD-EPI equation should not be used for patients with unstable renal function and has not been validated in children and those over 70. Current interpretive data was last reviewed 2021. Blood 10/10/2024 1:54 PM RN QUALITY 10/10/2024 2:04 PM RN QUALITY us Guillermo Mayes MD LAB BLOOD ORDERABLES Final R esult [facility] [address] [address] Liu Department [place] [address] * (ABNORMAL) Differential, auto (10/10/2024 1:54 PM RN QUALITY) Neutrophil abs 5.9 1.5 - 6.5 K/cumm Imm gran abs 0.0 0.0 - 0.1 K/cumm [facility] Lymphocyte abs 0.4(L) 0.8 - 3.3 K/cumm [facility] Monocyte abs 0.5 0.2 - 0.8 K/cumm [facility] Eosinophil abs 0.0 0.0 - 0.5 K/cumm [facility] Basophil abs 0.0 0.0 - 0.1 K/cumm [facility] Neutrophil pct 86.5 % [facility] Comment: Interpretive Data Percent cell count reference ranges are not reported, since discordance with absolute values may lead to misinterpretation of CBC data. Current Interpretive Data was last revised on 2017. Imm gran pct 0.6 % [facility] Comment: Interpretive Data Percent cell count reference ranges are not reported, since discordance with absolute values may lead to misinterpretation of CBC data. Current Interpretive Data was last revised on 2017. Lymphocyte pct 5.6 % [facility] Comment: Interpretive Data Percent cell count reference ranges are not reported, since discordance with absolute values may lead to misinterpretation of CBC data. Current Interpretive Data was last revised on 2017. Monocyte pct 7.0 % [facility] Comment: Interpretive Data Percent cell count reference ranges are not reported, since discordance with absolute values may lead to misinterpretation of CBC data. Current Interpretive Data was last revised on 2017. Eosinophil pct 0.0 % [facility] Comment: Interpretive Data Percent cell count reference ranges are not reported, since discordance with absolute values may lead to misinterpretation of CBC data. Current Interpretive Data was last revised on 2017. Basophil pct 0.3 % [facility] Comment: Interpretive Data Percent cell count reference ranges are not reported, since discordance with absolute values may lead to misinterpretation of CBC data. Current Interpretive Data was last revised on 2017. Blood 10/10/2024 1:54 PM RN QUALITY 10/10/2024 2:04 PM RN QUALITY Guillermo Mayes MD LAB BLOOD ORDERABLES Final R esult Performing Organization Address City/[facility] Co de Phone Number NICOLE RAYGOZA [address] [address] [place] [address] * (ABNORMAL) CBC with auto differential (10/10/2024 1:54 PM RN QUALITY) WBC 6.8 3.8 - 9.9 K/cumm Hgb 8.9(L) 13.0 - 17.5 g/dL [facility] Hct 26.4(L) 38.9 - 50.3 % [facility] Plt 106(L) 150 - 400 K/cumm [facility] MPV 10.9 9.1 - 12.3 fL [facility] RBC 2.99(L) 4.30 - 5.80 M/cumm [facility] MCV 88.3 81.3 - 96.4 fL [facility] MCH 29.8 27.1 - 33.3 pg [facility] MCHC 33.7 32.3 - 35.7 g/dL [facility] RDW CV 13.8 11.1 - 14.9 % [facility] RDW SD 44.2 35.7 - 48.1 fL [facility] NRBC abs 0.00 0.00 - 0.01 K/cumm [facility] Blood 10/10/2024 1:54 PM RN QUALITY 10/10/2024 2:04 PM RN QUALITY Guillermo Mayes MD LAB BLOOD ORDERABLES Final R esult Performing Organization Address City/[facility]/ZIP Co de Phone Number NICOLE RAYGOZA [address] [address] Manuel [place] [address] * Magnesium (10/10/2024 1:54 PM RN QUALITY) Magnesium 2.2 1.4 - 2.5 mg/dL Blood 10/10/2024 1:54 PM RN QUALITY 10/10/2024 2:04 PM RN QUALITY us Guillermo Mayes MD LAB BLOOD ORDERABLES Final R esult NICOLE RAYGOZA [address] [address] Liu Department [place] [address] * (ABNORMAL) Basic metabolic panel (10/10/2024 1:54 PM RN QUALITY) Pathologist [facility] Sodium 142 135 - 145 mmol/L Potassium, pl 3.9 3.3 - 4.9 mmol/L [facility] Chloride 108 97 - 110 mmol/L [facility] CO2 21(L) 22 - 32 mmol/L [facility] Anion gap 13 2 - 15 mmol/L [facility] BUN 17 6 - 25 mg/dL [facility] Creatinine 1.19 0.80 - 1.30 mg/dL [facility] Glucose 123 70 - 199 mg/dL [facility] Comment: Interpretive Data Fasting glucose >/= 126 mg/dl is diagnostic for diabetes. Fasting is defined as no caloric intake for at least 8 hours. Fasting glucose between 100 mg/dl to 125 mg/dl is diagnostic of prediabetes. In a patient with classic symptoms of hyperglycemia or hyperglycemic crisis, a random glucose >/= 200 mg/dl is diagnostic for diabetes. In the absence of unequivocal hyperglycemia, results should be confirmed by repeat testing. The classification and Diagnosis of Diabetes Diabetes Care 2021; 46: S19-S40. Current interpretive data was last revised 2022. Calcium 8.4(L) 8.5 - 10.3 mg/dL [facility] Blood 10/10/2024 1:54 PM RN QUALITY 10/10/2024 2:04 PM RN QUALITY us Guillermo Mayes MD LAB BLOOD ORDERABLES Final R esult NICOLE RAYGOZA [address] [address] Liu Department [place] [address] * POCT glucose (10/10/2024 12:58 PM RN QUALITY) Glucose, POC 141 70 - 199 mg/dL Blood 10/10/2024 12:5 8 PM RN QUALITY 10/10/2024 12:58 PM RN QUALITY us Guillermo Mayes MD LAB POCT ORDERABLES - DEVICE Final Result Performing Organization Address [facility] Co de Phone Number NICOLE RAYGOZA [address] [address] Manuel Department [employer] [place], [place] [id number] * Urinalysis reflex to microscopic (10/10/2024 12:27 PM RN QUALITY) Color, ur Straw Yellow Clarity, ur Clear Clear [facility] Specific gravity, ur 1.007 1.003 - 1.030 [facility] pH, urine 5.0 [facility] Comment: Interpretive Data U rine pH is affected by diet, medications, systemic acid-base disturbances, and renal tubular function. pH may affect urinary stone formation. For example, urine pH below 6.0 may help reduce the tendency for calcium phosphate stones and pH greater than 6.0 may reduce the tendency for uric acid stone formation. Source: [facility] [employer] Current Interpretive Data was last revised on 2017 Protein, ur ql Negative Negative [facility] Glucose, ur ql Negative Negative [facility] Ketones, ur Negative Negative [facility] Bilirubin, ur Negative Negative [facility] Blood, ur Negative Negative [facility] Urobilinogen, ur <2.0 <2.0 mg/dL [facility] Nitrite, ur Negative Negative [facility] Leukocyte esterase, ur Negative Negative [facility] UA reflex comment Reflex conditions for microscopic UA not met. [facility] Urine 10/10/2024 12:2 7 PM RN QUALITY 10/10/2024 12:35 PM RN QUALITY us Yvette Russell NP LAB URINE ORDERABLES Fin al Result Performing Organization Address [facility]/ZIP Co de Phone Number NICOLE RAYGOZA [address] [address] Department [place] [address] * POCT glucose (10/10/2024 11:53 AM RN QUALITY) Glucose, POC 151 70 - 199 mg/dL Blood 10/10/2024 11:5 3 AM RN QUALITY 10/10/2024 11:53 AM RN QUALITY us Guillermo Mayes MD LAB POCT ORDERABLES - DEVICE Final Result Performing Organization Address [facility] de Phone Number NICOLE RAYGOZA [address] [address] [facility] [place] [address] * POCT glucose (10/10/2024 10:48 AM RN QUALITY) Glucose, POC 150 70 - 199 mg/dL Blood 10/10/2024 10:4 8 AM RN QUALITY 10/10/2024 10:48 AM RN QUALITY us Guillermo Mayes MD LAB POCT ORDERABLES - DEVICE Final Result Performing Organization Address [facility] de Phone Number [facility] [address] [address] [facility] [place] [address] * POCT glucose (10/10/2024 9:48 AM RN QUALITY) Glucose, POC 169 70 - 199 mg/dL Blood 10/10/2024 9:48 AM RN QUALITY 10/10/2024 9:48 AM RN QUALITY us Guillermo Mayes MD LAB POCT ORDERABLES - DEVICE Final Result Performing Organization Address [facility] de Phone Number NICOLE [address] [address] [facility] [place] [address] * (ABNORMAL) POCT glucose (10/10/2024 8:16 AM RN QUALITY) Glucose, POC 200(H) 70 - 199 mg/dL Blood 10/10/2024 8:16 AM RN QUALITY 10/10/2024 8:16 AM RN QUALITY us Guillermo Mayes MD LAB POCT ORDERABLES - DEVICE Final Result Performing Organization Address [facility] Co de Phone Number NICOLE RAYGOZA [address] [address] Department [place] [address] * ECG 12 lead (10/10/2024 7:57 AM RN QUALITY) 10/10/2024 7:57 AM RN QUALITY Narrative [facility] - 10/10/2024 11:11 AM RN QUALITY Vent Rate: 97 bpm RR Interval: 613 msec LA Interval: 122 msec QRS Duration: 142 msec QT Interval: 390 msec QTC Interval: 445 msec P-R-T [place]: 30 - -17 - 61 degrees IMPRESSION: SINUS RHYTHM RIGHT BUNDLE BRANCH BLOCK [120+ ms QRS DURATION, UPRIGHT V1, 40+ ms S IN I/aVL/V4/V5/V6] ABNORMAL ECG Electronically Signed By: Kacy Knox MD us Fatou Schwartz MD ECG ORDERABLES Final Result Performing Organization Address [facility] Phone Number [facility] [employer] [facility] * (ABNORMAL) Blood gas, arterial (10/10/2024 6:52 AM RN QUALITY) pH, Art 7.44 7.35 - 7.45 PCO2, Arterial 33(L) 35 - 45 mmHg [facility] PO2, Arterial 80(L) 83 - 108 mmHg [facility] HCO3 Art (Calculated) 23 20 - 30 mmol/L [facility] BE, art -2 mmol/L [facility] Comment: Interpretive Data No Reference Range Established Current Interpretive Data was last revised on 2017 O2 Sat Art (Measured) 97(H) 90 - 95 % [facility] Blood 10/10/2024 6:52 AM RN QUALITY 10/10/2024 6:55 AM RN QUALITY us Guillermo Mayes MD LAB BLOOD ORDERABLES Final R esult Performing Organization Address [facility] Co de Phone Number NICOLE RAYGOZA [address] [address] Department [place] [address] * Critical Care (10/10/2024 6:41 AM RN QUALITY) Narrative Case Guerrero MD - 10/10/2024 6:41 AM RN QUALITY Case Guerrero MD 10/10/2024 4:43 PM Critical Care Performed by: Yvette Russell NP Authorized by: Yvette Russell NP CRITICAL CARE: Team: JUDY Shift: AM Level of Billing: Critical Care My time spent with this patient was 100 minutes: Critical Provider Statement: I have seen and examined the patient on this day of service. I have reviewed and confirmed the history, physical exam, laboratory and radiologic data as documented in the signed ICU note. I have reviewed and discussed my treatment plan with the ICU team and other medical/medical consultant staff, making frequent assessments and decisions regarding this patient's complex medical care. Critical Care time was exclusive of time spent performing separately billed procedures, treating other patients, and teaching. This time was in addition to and separate from critical care provided by other practitioners in my group on this day of service. Critical Care was necessary to treat or prevent imminent or life-threatening deterioration of the following conditions: us Yvette Russell [employer] IN CL[employer]IC/BEDSIDE ORDERA BLES Final Result * POCT glucose (10/10/2024 6:10 AM RN QUALITY) Glucose, POC 167 70 - 199 mg/dL Blood 10/10/2024 6:10 AM RN QUALITY 10/10/2024 6:10 AM RN QUALITY us Guillermo Mayes MD LAB POCT ORDERABLES - DEVICE Final Result Performing Organization Address City/State/[facility] Co pa Phone Number [facility] [place] [address] [address] Department [place] [address] * XR Chest 1 View - Portable - in AM (10/10/2024 5:55 AM RN QUALITY) Anatomical Region Laterality Modality Body, Chest N/A Computed Radiogr aphy 10/10/2024 9:08 AM RN QUALITY Impressions 10/10/2024 9:08 AM RN QUALITY No failure. Electronically signed by: Elena Bower M.D. Narrative 10/10/2024 9:08 AM RN QUALITY EXAMINATION: XR CHEST 1 VIEW HISTORY: The patient is an 79-year-old male who has had cardiac surgery. Comparison made with the previous study dated 10/09/2024. TECHNIQUE: AP portable view of the chest. FINDINGS: Unchanged satisfactory position of the endotracheal tube, bilateral thoracostomy tubes nasogastric tube and [place]-Fausto catheter. Borderline cardiomegaly with aortic atherosclerosis. No failure. No active infiltrate. Procedure Note Elena Bower MD - 10/10/2024 EXAMINATION: XR CHEST 1 VIEW HISTORY: The patient is an 79-year-old male who has had cardiac surgery. Comparison made with the previous study dated 10/09/2024. TECHNIQUE: AP portable view of the chest. FINDINGS: Unchanged satisfactory position of the endotracheal tube, bilateral thoracostomy tubes nasogastric tube and [place]-Fausto catheter. Borderline cardiomegaly with aortic atherosclerosis. No failure. No active infiltrate. IMPRESSION: No failure. Electronically signed by: Elena Bower M.D. Guillermo Mayes MD IMG XR PROCEDURES Final Resu lt * POCT glucose (10/10/2024 5:15 AM RN QUALITY) Glucose, POC 194 70 - 199 mg/dL Blood 10/10/2024 5:15 AM RN QUALITY 10/10/2024 5:15 AM RN QUALITY Guillermo Mayes MD LAB POCT ORDERABLES - DEVICE Final Result NICOLE [address] [address] Manuel Department of Laboratories [place], [place] [id number] * Oxyhemoglobin, pulmonary artery (10/10/2024 2:34 AM RN QUALITY) Oxyhemoglobin, PA 58.0 % Comment: Interpretive Data No reference range established. Current interpretive data was last revised 2019. Blood 10/10/2024 2:34 AM RN QUALITY 10/10/2024 2:43 AM RN QUALITY us Guillermo Mayes MD LAB BLOOD ORDERABLES Final R esult Performing Organization Address City/[facility]/ZIP Co de Phone Number NICOLE RAYGOZA [address] [address] Department [place] [address] * eGFR (10/10/2024 2:27 AM RN QUALITY) eGFR 69 >=60 mL/min/1. 73 m2 Comment: Interpretive Data Reference Interval Normal >/= 90 mL/min/1.73m2 Mildly decreased* 60 - 89 mL/min/1.73m2 Mildly to moderately decreased 45 - 59 mL/min/1.73m2 Moderately to severely decreased 30 - 44 mL/min/1.73m2 Severely decreased 15 - 29 mL/min/1.73m2 Kidney Failure < 15 mL/min/1.73m2 *Relative to young adult level Estimated glomerular filtration rate is determined by the 2020 CKD-EPI equation recommended by the National Kidney Foundation (A Unifying Approach to GFR Estimation: Recommendations of the NKF-ASK Task Force on Reassessing the Inclusion of Race in Diagnosing Kidney Disease, JASN 2020). The CKD-EPI equation should not be used for patients with unstable renal function and has not been validated in children and those over 70. Current interpretive data was last reviewed 2021. Blood 10/10/2024 2:27 AM RN QUALITY 10/10/2024 2:27 AM RN QUALITY us Fatou Schwartz MD LAB BLOOD ORDERABLES Final Res ult Performing Organization Address City/[facility]/ZIP Co de Phone Number NICOLE RAYGOZA [address] [address] Department of Laboratories [place], [place] [id number] * (ABNORMAL) Differential, auto (10/10/2024 2:27 AM RN QUALITY) Neutrophil abs 5.8 1.5 - 6.5 K/cumm Imm gran abs 0.0 0.0 - 0.1 K/cumm [facility] Lymphocyte abs 0.3(L) 0.8 - 3.3 K/cumm [facility] Monocyte abs 0.4 0.2 - 0.8 K/cumm [facility] Eosinophil abs 0.0 0.0 - 0.5 K/cumm [facility] Basophil abs 0.0 0.0 - 0.1 K/cumm [facility] Neutrophil pct 88.1 % [facility] Comment: Interpretive Data Percent cell count reference ranges are not reported, since discordance with absolute values may lead to misinterpretation of CBC data. Current Interpretive Data was last revised on 2017. Imm gran pct 0.5 % [facility] Comment: Interpretive Data Percent cell count reference ranges are not reported, since discordance with absolute values may lead to misinterpretation of CBC data. Current Interpretive Data was last revised on 2017. Lymphocyte pct 4.2 % [facility] Comment: Interpretive Data Percent cell count reference ranges are not reported, since discordance with absolute values may lead to misinterpretation of CBC data. Current Interpretive Data was last revised on 2017. Monocyte pct 6.5 % [facility] Comment: Interpretive Data Percent cell count reference ranges are not reported, since discordance with absolute values may lead to misinterpretation of CBC data. Current Interpretive Data was last revised on 2017. Eosinophil pct 0.2 % [facility] Comment: Interpretive Data Percent cell count reference ranges are not reported, since discordance with absolute values may lead to misinterpretation of CBC data. Current Interpretive Data was last revised on 2017. Basophil pct 0.5 % [facility] Comment: Interpretive Data Percent cell count reference ranges are not reported, since discordance with absolute values may lead to misinterpretation of CBC data. Current Interpretive Data was last revised on 2017. Blood 10/10/2024 2:27 AM RN QUALITY 10/10/2024 2:27 AM RN QUALITY us Fatou Schwartz MD LAB BLOOD ORDERABLES Final Res ult NICOLE RAYGOZA [address] [address] Liu Department [place] [address] * Thyroid Function [place] (10/10/2024 2:27 AM RN QUALITY) TSH 3.02 0.30 - 4.20 mcIUnit/mL Blood 10/10/2024 2:27 AM RN QUALITY 10/10/2024 2:27 AM RN QUALITY us Yvette Russell [employer] LAB BLOOD ORDERABLES Fin al Result Performing Organization Address [facility]/ZIP Co de Phone Number NICOLE RAYGOZA [address] [address] Manuel Department [place] [address] * (ABNORMAL) CBC with auto differential (10/10/2024 2:27 AM RN QUALITY) WBC 6.6 3.8 - 9.9 K/cumm Hgb 9.2(L) 13.0 - 17.5 g/dL [facility] Hct 26.4(L) 38.9 - 50.3 % [facility] Plt 133(L) 150 - 400 K/cumm [facility] MPV 10.5 9.1 - 12.3 fL [facility] RBC 2.99(L) 4.30 - 5.80 M/cumm [facility] MCV 88.3 81.3 - 96.4 fL [facility] MCH 30.8 27.1 - 33.3 pg [facility] MCHC 34.8 32.3 - 35.7 g/dL [facility] RDW CV 13.7 11.1 - 14.9 % [facility] RDW SD 43.9 35.7 - 48.1 fL [facility] NRBC abs 0.00 0.00 - 0.01 K/cumm [facility] Blood 10/10/2024 2:27 AM RN QUALITY 10/10/2024 2:27 AM RN QUALITY Fatou Schwartz MD LAB BLOOD ORDERABLES Final Res ult NICOLE RAYGOZA [address] [address] Manuel [place] [address] * (ABNORMAL) Vitamin D 25 hydroxy (10/10/2024 2:27 AM RN QUALITY) Vitamin D 25-OH 13(L) 30 - 80 ng/mL Blood 10/10/2024 2:27 AM RN QUALITY 10/10/2024 2:38 AM RN QUALITY Yvette Russell [employer] LAB BLOOD ORDERABLES Fin al Result Performing Organization Address [facility] Co de Phone Number NICOLE RAYGOZA [address] [address] Manuel [facility] [place] [address] * Phosphorus (10/10/2024 2:27 AM RN QUALITY) Phosphorus, pl 3.9 2.3 - 4.5 mg/dL Blood 10/10/2024 2:27 AM RN QUALITY 10/10/2024 2:27 AM RN QUALITY Yvette Russell [employer] LAB BLOOD ORDERABLES Fin al Result Performing Organization Address [facility] Co de Phone Number NICOLE RAYGOZA [address] [address] [facility] [place] [address] * Magnesium (10/10/2024 2:27 AM RN QUALITY) Magnesium 2.1 1.4 - 2.5 mg/dL Blood 10/10/2024 2:27 AM RN QUALITY 10/10/2024 2:27 AM RN QUALITY Fatou Schwartz MD LAB BLOOD ORDERABLES Final Res ult Performing Organization Address [facility] de Phone Number NICOLE RAYGOZA [address] [address] [facility] [place] [address] * (ABNORMAL) Hepatic function panel (10/10/2024 2:27 AM RN QUALITY) Bilirubin, total 0.5 0.1 - 1.2 mg/dL Bilirubin, direct 0.2 0.1 - 0.3 mg/dL [facility] Protein, pl 4.9(L) 6.5 - 8.5 g/dL [facility] Albumin 3.5 3.5 - 5.0 g/dL [facility] Alk phos 41 40 - 130 Units/L [facility] ALT 25 7 - 55 Units/L [facility] AST 42 10 - 50 Units/L [facility] Blood 10/10/2024 2:27 AM RN QUALITY 10/10/2024 2:27 AM RN QUALITY us Yvette Russell [employer] LAB BLOOD ORDERABLES Fin al Result NICOLE [address] [address] Manuel Department [place] [address] * (ABNORMAL) Lipid panel (10/10/2024 2:27 AM RN QUALITY) Cholesterol 65 30 - 199 mg/dL Comment: Interpretive Data Ages < or = 19 years Acceptable: <170 mg/dL Borderline high: 170-199 mg/dL High: >or= 200 mg/dL Ages > or = 20 years Desirable: <200 mg/dL Borderline high: 200-239 mg/dL High: >or= 240 mg/dL Literature References: 1. Expert Panel on Integrated Guidelines for Cardiovascular Health and Risk Reduction in Children and Adolescents. Pediatrics 2011;128:S213 2. NCEP Expert Panel. Circulation 2004;110:227 Current Interpretive Data was last revised on 2018. Triglycerides 84 <=149 mg/dL [facility] Comment: Interpretive Data Ages < or = 9 years Acceptable: <75 mg/dL Borderline high: 75-99 mg/dL High: >or= 100 mg/dL Ages 10 to 20 years Acceptable: <90 mg/dL Borderline high: 90-129 mg/dL High: >or= 130 mg/dL Ages > or = 20 years Desirable: <150 mg/dL Borderline high: 150-199 mg/dL High: 200-499 mg/dL Very high: >or= 499 mg/dL Literature References: 1. Expert Panel on Integrated Guidelines for Cardiovascular Health and Risk Reduction in Children and Adolescents. Pediatrics 2011;128:S213 2. NCEP Expert Panel. Circulation 2004;110:227 Current Interpretive Data was last revised on 2018. HDL 34(L) >=40 mg/dL [facility] Comment: Interpretive Data Ages < or = 19 years Acceptable: >45 mg/dL Borderline low: 40-45 mg/dL Low: <40 mg/dL Ages > or = 20 years Desirable: >or= 60 mg/dL Low: <40 mg/dL Literature References: 1. Expert Panel on Integrated Guidelines for Cardiovascular Health and Risk Reduction in Children and Adolescents. Pediatrics 2011;128:S213 2. NCEP Expert Panel. Circulation 2004;110:227 Current Interpretive Data was last revised on 2018. LDL, calculated 14 <=129 mg/dL [facility] RAYGOZA Comment: Interpretive Data Ages < or = 19 years Acceptable: <110 mg/dL Borderline high: 110-129 mg/dL High: >or= 130 mg/dL Ages > or = 20 years Optimal: <100 mg/dL Near optimal: 100-129 mg/dL Borderline high: 130-159 mg/dL High: >160 mg/dL Calculated using the Juma LDL-C estimating equation. This equation was implemented on 2024. Prior to this date LDL-C was estimated using the Friedewald equation. Literature References: 1. Expert Panel on Integrated Guidelines for Cardiovascular Health and Risk Reduction in Children and Adolescents. Pediatrics 2011;128:S213 2. NCEP Expert Panel. Circulation 2004;110:227 3. Juma Velasquez et al. SEGUNDO Cardiol. 2019December 07;5(5):540-548. doi: 10.1001/[email or web address].2020.0013 Current Interpretive Data was last revised on 2024. Non-HDL Cholesterol 31 mg/dL NICOLE RAYGOZA Comment: Interpretive Data Ages < or = 19 years Acceptable: <120 mg/dL Borderline high: 120-144 mg/dL High: >145 mg/dL Ages > or = 20 years When triglycerides are >200 mg/dL, Non-HDL cholesterol is a secondary target of therapy with treatment goals that are 30 mg/dL greater than the LDL cholesterol target. Literature References: 1. Expert Panel on Integrated Guidelines for Cardiovascular Health and Risk Reduction in Children and Adolescents. Pediatrics 2011;128:S213 2. NCEP Expert Panel. Circulation 2004;110:227 Current Interpretive Data was last revised on 2018. Chol/HDL ratio 2 NICOLE RAYGOZA Blood 10/10/2024 2:27 AM RN QUALITY 10/10/2024 2:27 AM RN QUALITY Yvette Russell NP LAB BLOOD ORDERABLES Fin al Result NICOLE RAYGOZA [address] Department [place] [address] * (ABNORMAL) Basic metabolic panel (10/10/2024 2:27 AM RN QUALITY) Sodium 141 135 - 145 mmol/L Potassium, pl 4.1 3.3 - 4.9 mmol/L [facility] Chloride 109 97 - 110 mmol/L [facility] CO2 20(L) 22 - 32 mmol/L [facility] Anion gap 12 2 - 15 mmol/L [facility] BUN 15 6 - 25 mg/dL [facility] Creatinine 1.09 0.80 - 1.30 mg/dL [facility] Glucose 180 70 - 199 mg/dL [facility] Comment: Interpretive Data Fasting glucose >/= 126 mg/dl is diagnostic for diabetes. Fasting is defined as no caloric intake for at least 8 hours. Fasting glucose between 100 mg/dl to 125 mg/dl is diagnostic of prediabetes. In a patient with classic symptoms of hyperglycemia or hyperglycemic crisis, a random glucose >/= 200 mg/dl is diagnostic for diabetes. In the absence of unequivocal hyperglycemia, results should be confirmed by repeat testing. The classification and Diagnosis of Diabetes Diabetes Care 2021; 46: S19-S40. Current interpretive data was last revised 2022. Calcium 8.2(L) 8.5 - 10.3 mg/dL [facility] Blood 10/10/2024 2:27 AM RN QUALITY 10/10/2024 2:27 AM RN QUALITY Fatou Schwartz MD LAB BLOOD ORDERABLES Final Res ult Performing Organization Address [facility]/ZIP Co de Phone Number NICOLE RAYGOZA [address] [address] Department [place] [address] * Calcium, ionized, whole blood (10/10/2024 2:21 AM RN QUALITY) Ca, ionized, bld 4.72 4.50 - 5.10 mg/dL Blood 10/10/2024 2:21 AM RN QUALITY 10/10/2024 2:26 AM RN QUALITY us Yvette Russell NP LAB BLOOD ORDERABLES Fin al Result Performing Organization Address [facility]/ZIP Co de Phone Number NICOLE RAYGOZA [address] [facility] [place] [address] * (ABNORMAL) Blood gas, arterial (10/10/2024 2:21 AM RN QUALITY) pH, Art 7.42 7.35 - 7.45 PCO2, Arterial 33(L) 35 - 45 mmHg [facility] PO2, Arterial 96 83 - 108 mmHg [facility] HCO3 Art (Calculated) 22 20 - 30 mmol/L [facility] BE, art -2 mmol/L [facility] Comment: Interpretive Data No Reference Range Established Current Interpretive Data was last revised on 2017 O2 Sat Art (Measured) 98(H) 90 - 95 % [facility] Blood 10/10/2024 2:21 AM RN QUALITY 10/10/2024 2:25 AM RN QUALITY us Guillermo Mayes MD LAB BLOOD ORDERABLES Final R esult Performing Organization Address [facility] Co de Phone Number NICOLE RAYGOZA [address] [facility] [place] [address] * POCT glucose (10/09/2024 11:11 PM RN QUALITY) Glucose, POC 142 70 - 199 mg/dL Blood 10/09/2024 11:1 1 PM RN QUALITY 10/09/2024 11:11 PM RN QUALITY Guillermo Mayes MD LAB POCT ORDERABLES - DEVICE Final Result Performing Organization Address City/[facility] Co de Phone Number NICOLE RAYGOZA [address] [address] [facility] [place] [address] * (ABNORMAL) Blood gas, arterial (10/09/2024 9:50 PM RN QUALITY) pH, Art 7.41 7.35 - 7.45 PCO2, Arterial 35 35 - 45 mmHg [facility] PO2, Arterial 118(H) 83 - 108 mmHg [facility] HCO3 Art (Calculated) 22 20 - 30 mmol/L [facility] BE, art -2 mmol/L [facility] Comment: Interpretive Data No Reference Range Established Current Interpretive Data was last revised on 2017 O2 Sat Art (Measured) 99(H) 90 - 95 % [facility] Blood 10/09/2024 9:50 PM RN QUALITY 10/09/2024 9:52 PM RN QUALITY Tony Purdy NP LAB BLOOD ORDERABLES Fi nal Result NICOLE [address] [address] Department [place] [address] * Critical Care (10/09/2024 8:31 PM RN QUALITY) Narrative Deo Biggs MD - 10/09/2024 8:31 PM RN QUALITY Deo Biggs MD 10/10/2024 5:32 AM Critical Care Performed by: Tony Purdy NP Authorized by: Tony Purdy NP CRITICAL CARE: Team: JUDY Shift: PM Level of Billing: Critical Care My time spent with this patient was 120 minutes: Critical Provider Statement: I have seen and examined the patient on this day of service. I have reviewed and confirmed the history, physical exam, laboratory and radiologic data as documented in the signed ICU note. I have reviewed and discussed my treatment plan with the ICU team and other medical/medical consultant staff, making frequent assessments and decisions regarding this patient's complex medical care. Critical Care time was exclusive of time spent performing separately billed procedures, treating other patients, and teaching. This time was in addition to and separate from critical care provided by other practitioners in my group on this day of service. Critical Care was necessary to treat or prevent imminent or life-threatening deterioration of the following conditions: I spent time reviewing and interpreting data from bedside monitors, laboratory results, and imaging, I spent time discussing the management of this critically ill patient with consultants and the medical staff and I spent time documenting in the medical record us Tony Purdy NP IN CLINIC/BEDSIDE ORDER TEVIN Final Result * Transfuse platelets (10/09/2024 8:30 PM RN QUALITY) Blood us Guillermo Mayes MD BLOOD TRANSFUSION ORDERABLES Final Result NICOLE RAYGOZA [address] [address] Department [place] [address] * Calcium, ionized, whole blood (10/09/2024 8:23 PM RN QUALITY) Ca, ionized, bld 4.60 4.50 - 5.10 mg/dL Blood 10/09/2024 8:23 PM RN QUALITY 10/09/2024 8:25 PM RN QUALITY us Guillermo Mayes MD LAB BLOOD ORDERABLES Final R esult Performing Organization Address [facility] Co de Phone Number NICOLE RAYGOZA [address] [address] [place] [address] * eGFR (10/09/2024 8:23 PM RN QUALITY) eGFR 78 >=60 mL/min/1. 73 m2 Comment: Interpretive Data Reference Interval Normal >/= 90 mL/min/1.73m2 Mildly decreased* 60 - 89 mL/min/1.73m2 Mildly to moderately decreased 45 - 59 mL/min/1.73m2 Moderately to severely decreased 30 - 44 mL/min/1.73m2 Severely decreased 15 - 29 mL/min/1.73m2 Kidney Failure < 15 mL/min/1.73m2 *Relative to young adult level Estimated glomerular filtration rate is determined by the 2020 CKD-EPI equation recommended by the National Kidney Foundation (A Unifying Approach to GFR Estimation: Recommendations of the NKF-ASK Task Force on Reassessing the Inclusion of Race in Diagnosing Kidney Disease, JASN 2020). The CKD-EPI equation should not be used for patients with unstable renal function and has not been validated in children and those over 70. Current interpretive data was last reviewed 2021. Blood 10/09/2024 8:23 PM RN QUALITY 10/09/2024 8:25 PM RN QUALITY us Guillermo Mayes MD LAB BLOOD ORDERABLES Final R esult NICOLE [address] Department [place] [address] * (ABNORMAL) Differential, auto (10/09/2024 8:23 PM RN QUALITY) Neutrophil abs 5.6 1.5 - 6.5 K/cumm Imm gran abs 0.0 0.0 - 0.1 K/cumm [facility] Lymphocyte abs 0.5(L) 0.8 - 3.3 K/cumm [facility] Monocyte abs 0.4 0.2 - 0.8 K/cumm [facility] Eosinophil abs 0.0 0.0 - 0.5 K/cumm [facility] Basophil abs 0.0 0.0 - 0.1 K/cumm [facility] Neutrophil pct 85.8 % [facility] Comment: Interpretive Data Percent cell count reference ranges are not reported, since discordance with absolute values may lead to misinterpretation of CBC data. Current Interpretive Data was last revised on 2017. Imm gran pct 0.5 % [facility] Comment: Interpretive Data Percent cell count reference ranges are not reported, since discordance with absolute values may lead to misinterpretation of CBC data. Current Interpretive Data was last revised on 2017. Lymphocyte pct 7.4 % [facility] Comment: Interpretive Data Percent cell count reference ranges are not reported, since discordance with absolute values may lead to misinterpretation of CBC data. Current Interpretive Data was last revised on 2017. Monocyte pct 5.7 % [facility] Comment: Interpretive Data Percent cell count reference ranges are not reported, since discordance with absolute values may lead to misinterpretation of CBC data. Current Interpretive Data was last revised on 2017. Eosinophil pct 0.3 % [facility] Comment: Interpretive Data Percent cell count reference ranges are not reported, since discordance with absolute values may lead to misinterpretation of CBC data. Current Interpretive Data was last revised on 2017. Basophil pct 0.3 % [facility] Comment: Interpretive Data Percent cell count reference ranges are not reported, since discordance with absolute values may lead to misinterpretation of CBC data. Current Interpretive Data was last revised on 2017. Blood 10/09/2024 8:23 PM RN QUALITY 10/09/2024 8:26 PM RN QUALITY Guillermo Mayes MD LAB BLOOD ORDERABLES Final R esult Performing Organization Address City/[facility]/ZIP Co de Phone Number NICOLE [address] [place] [address] * (ABNORMAL) CBC with auto differential (10/09/2024 8:23 PM RN QUALITY) WBC 6.5 3.8 - 9.9 K/cumm Hgb 9.3(L) 13.0 - 17.5 g/dL [facility] Hct 26.8(L) 38.9 - 50.3 % [facility] Plt 119(L) 150 - 400 K/cumm [facility] MPV 10.5 9.1 - 12.3 fL [facility] RBC 3.06(L) 4.30 - 5.80 M/cumm [facility] MCV 87.6 81.3 - 96.4 fL [facility] MCH 30.4 27.1 - 33.3 pg [facility] MCHC 34.7 32.3 - 35.7 g/dL [facility] RDW CV 13.3 11.1 - 14.9 % [facility] RDW SD 42.2 35.7 - 48.1 fL [facility] NRBC abs 0.00 0.00 - 0.01 K/cumm [facility] Blood 10/09/2024 8:23 PM RN QUALITY 10/09/2024 8:26 PM RN QUALITY Guillermo Mayes MD LAB BLOOD ORDERABLES Final R esult Performing Organization Address City/[facility]/ZIP Co de Phone Number NICOLE [address] Department of [employer] [place], [place] [id number] * (ABNORMAL) Protime-INR (10/09/2024 8:23 PM RN QUALITY) PT 14.0(H) 9.7 - 13.0 sec INR 1.29(H) 0.90 - 1.20 NICOLE Comment: Interpretive data Oral anticoagulant therapeutic ranges: Venous thromboembolism prophylaxis or treatment: 2.0-3.0 CARDIOLOGY Standard range: 2.0-3.0 High-intensity range: 2.5-3.5 Refer to indication-specific guidelines for appropriate target ranges for prosthetic heart valve replacement. Current interpretive data was last revised on 2019. Blood 10/09/2024 8:23 PM RN QUALITY 10/09/2024 8:26 PM RN QUALITY us Guillermo Mayes MD LAB BLOOD ORDERABLES Final R esult Performing Organization Address [facility] de Phone Number [facility] [address] [address] [facility] [place] [address] * Fibrinogen (10/09/2024 8:23 PM RN QUALITY) Pathologist [facility] Fibrinogen 242 170 - 400 mg/dL Blood 10/09/2024 8:23 PM RN QUALITY 10/09/2024 8:26 PM RN QUALITY us Guillermo Mayes MD LAB BLOOD ORDERABLES Final R esult Performing Organization Address [facility] Phone Number [facility] [phone] [address] [facility] [place] [address] * Magnesium (10/09/2024 8:23 PM RN QUALITY) Pathologist [facility] Magnesium 2.2 1.4 - 2.5 mg/dL Blood 10/09/2024 8:23 PM RN QUALITY 10/09/2024 8:25 PM RN QUALITY us Guillermo Mayes MD LAB BLOOD ORDERABLES Final R esult Performing Organization Address [facility] de Phone Number [facility] [phone] [address] [facility] [place] [address] * (ABNORMAL) Blood gas, arterial (10/09/2024 8:23 PM RN QUALITY) pH, Art 7.48(H) 7.35 - 7.45 PCO2, Arterial 29(L) 35 - 45 mmHg [facility] PO2, Arterial 138(H) 83 - 108 mmHg [facility] HCO3 Art (Calculated) 23 20 - 30 mmol/L [facility] BE, art -2 mmol/L [facility] Comment: Interpretive Data No Reference Range Established Current Interpretive Data was last revised on 2017 O2 Sat Art (Measured) 98(H) 90 - 95 % [facility] Blood 10/09/2024 8:23 PM RN QUALITY 10/09/2024 8:25 PM RN QUALITY us Guillermo Mayes MD LAB BLOOD ORDERABLES Final R esult [facility] [address] [address] Department [place] [address] * (ABNORMAL) Basic metabolic panel (10/09/2024 8:23 PM RN QUALITY) Sodium 142 135 - 145 mmol/L Potassium, pl 3.7 3.3 - 4.9 mmol/L [facility] Chloride 108 97 - 110 mmol/L [facility] CO2 20(L) 22 - 32 mmol/L [facility] Anion gap 14 2 - 15 mmol/L [facility] BUN 16 6 - 25 mg/dL [facility] Creatinine 0.98 0.80 - 1.30 mg/dL [facility] Glucose 135 70 - 199 mg/dL [facility] Comment: Interpretive Data Fasting glucose >/= 126 mg/dl is diagnostic for diabetes. Fasting is defined as no caloric intake for at least 8 hours. Fasting glucose between 100 mg/dl to 125 mg/dl is diagnostic of prediabetes. In a patient with classic symptoms of hyperglycemia or hyperglycemic crisis, a random glucose >/= 200 mg/dl is diagnostic for diabetes. In the absence of unequivocal hyperglycemia, results should be confirmed by repeat testing. The classification and Diagnosis of Diabetes Diabetes Care 2021; 46: S19-S40. Current interpretive data was last revised 2022. Calcium 8.6 8.5 - 10.3 mg/dL NICOLE IDALMIS Blood 10/09/2024 8:23 PM RN QUALITY 10/09/2024 8:25 PM RN QUALITY Guillermo Mayes MD LAB BLOOD ORDERABLES Final R esult NICOLE [address] [facility] Department [place] [address] * XR Chest 1 Vw Portable (10/09/2024 8:19 PM RN QUALITY) Anatomical Region Laterality Modality Body, Chest N/A Computed Radiogr aphy 10/09/2024 10:3 7 PM RN QUALITY Impressions 10/09/2024 10:37 PM RN QUALITY No failure. Electronically signed by: Elena Bower M.D. Narrative 10/09/2024 10:37 PM RN QUALITY EXAMINATION: XR CHEST 1 VIEW HISTORY: The patient is a 79-year-old male who has had cardiac surgery. Comparison made with the study done at 4:27 PM. TECHNIQUE: AP portable view of the chest. FINDINGS: Bilateral thoracostomy tubes and mediastinal drain in place. The distal tip of the Bismarck-Fausto catheter is in the proximal right main pulmonary artery. Endotracheal tube and nasogastric tubes are in satisfactory position. Heart not enlarged. No failure. No active infiltrate. Procedure Note Elena Bower MD - 10/09/2024 EXAMINATION: XR CHEST 1 VIEW HISTORY: The patient is a 79-year-old male who has had cardiac surgery. Comparison made with the study done at 4:27 PM. TECHNIQUE: AP portable view of the chest. FINDINGS: Bilateral thoracostomy tubes and mediastinal drain in place. The distal tip of the Bismarck-Fausto catheter is in the proximal right main pulmonary artery. Endotracheal tube and nasogastric tubes are in satisfactory position. Heart not enlarged. No failure. No active infiltrate. IMPRESSION: No failure. Electronically signed by: Elena Bower M.D. Guillermo Mayes MD IMG XR PROCEDURES Final Resu lt * POCT glucose (10/09/2024 7:06 PM RN QUALITY) Glucose, POC 128 70 - 199 mg/dL Blood 10/09/2024 7:06 PM RN QUALITY 10/09/2024 7:06 PM RN QUALITY us Guillermo Mayes MD LAB POCT ORDERABLES - DEVICE Final Result Performing Organization Address [facility] Co de Phone Number NICOLE [address] [address] [facility] [place] [address] * Transfuse platelets (10/09/2024 7:00 PM RN QUALITY) Blood us Guillermo Mayes MD BLOOD TRANSFUSION ORDERABLES Final Result Performing Organization Address [facility] de Phone Number LORINACE [address] [address] [facility] [place] [address] * Transfuse cryoprecipitate (pooled units) (10/09/2024 7:00 PM RN QUALITY) Blood us Guillermo Mayes MD BLOOD TRANSFUSION ORDERABLES Final Result Performing Organization Address [facility] Co de Phone Number LORINACE [address] [address] [facility] [place] [address] * Transfuse cryoprecipitate (pooled units) (10/09/2024 6:34 PM RN QUALITY) Blood Guillermo Mayes MD BLOOD TRANSFUSION ORDERABLES Final Result Performing Organization Address [facility] Co de Phone Number LORINACE [address] [address] [facility] [employer] [place], [place] [id number] * Critical Care (10/09/2024 5:28 PM RN QUALITY) Narrative Case Guerrero MD - 10/09/2024 5:28 PM RN QUALITY Case Guerrero MD 10/10/2024 4:43 PM Critical Care Performed by: Yvette Russell NP Authorized by: Yvette Russell NP CRITICAL CARE: Team: JUDY Shift: AM Level of Billing: Critical Care My time spent with this patient was 120 minutes: Critical Provider Statement: I have seen and examined the patient on this day of service. I have reviewed and confirmed the history, physical exam, laboratory and radiologic data as documented in the signed ICU note. I have reviewed and discussed my treatment plan with the ICU team and other medical/medical consultant staff, making frequent assessments and decisions regarding this patient's complex medical care. Critical Care time was exclusive of time spent performing separately billed procedures, treating other patients, and teaching. This time was in addition to and separate from critical care provided by other practitioners in my group on this day of service. Critical Care was necessary to treat or prevent imminent or life-threatening deterioration of the following conditions: I spent time reviewing and interpreting data from bedside monitors, laboratory results, and imaging, I spent time discussing the management of this critically ill patient with consultants and the medical staff and I spent time documenting in the medical record us Yvette Russell NP IN CLINIC/BEDSIDE ORDERA BLES Final Result * POCT glucose (10/09/2024 5:23 PM RN QUALITY) Glucose, POC 137 70 - 199 mg/dL Blood 10/09/2024 5:23 PM RN QUALITY 10/09/2024 5:23 PM RN QUALITY us Guillermo Mayes MD LAB POCT ORDERABLES - DEVICE Final Result NICOLE [address] [address] Department [place] [address] * Prepare cryoprecipitate (pooled units): 2 Units (10/09/2024 5:10 PM RN QUALITY) Product code [id number] Unit Number [id number] N [facility] Product Blood Type OPOS [facility] Dispense Status PRESUMED TRANSFUSED [facility] Product code [id number] [facility] Unit Number [id number] J [facility] Product Blood Type OPOS [facility] Dispense Status PRESUMED TRANSFUSED [facility] Blood Venous blood specimen / Unknown 10/09/2024 5:10 PM RN QUALITY Narrative NICOLE RAYGOZA - 10/09/2024 10:15 PM RN QUALITY Other indication->post op cardiac bleeding Cryo # of [id number] Reasons:-Other (Specify)} us Guillermo Mayes MD BLOOD BANK PRODUCT ORDERABLE S Final Result NICOLE RAYGOZA [address] [address] Department [place] [address] * XR Chest 1 View - Portable (10/09/2024 5:05 PM RN QUALITY) Anatomical Region Laterality Modality Body, Chest N/A Computed Radiogr aphy 10/09/2024 10:3 1 PM RN QUALITY Impressions 10/09/2024 10:31 PM RN QUALITY No failure. Electronically signed by: Elena Bower M.D. Narrative 10/09/2024 10:31 PM RN QUALITY EXAMINATION: XR CHEST 1 VIEW HISTORY: The patient is an 79-year-old male who has had cardiac surgery. Comparison made with the previous study dated 10/06/2024. TECHNIQUE: AP portable view of the chest. FINDINGS: Bilateral thoracostomy tubes are noted in situ. Endotracheal tube is in good position. The distal tubing of the nasogastric tube is seen coursing towards the stomach lumen. The distal tip of a Bismarck-Fausto catheter is in the proximal right main pulmonary artery. Cardiomegaly with no failure. No active infiltrate. Procedure Note Elena Bower MD - 10/09/2024 EXAMINATION: XR CHEST 1 VIEW HISTORY: The patient is an 79-year-old male who has had cardiac surgery. Comparison made with the previous study dated 10/06/2024. TECHNIQUE: AP portable view of the chest. FINDINGS: Bilateral thoracostomy tubes are noted in situ. Endotracheal tube is in good position. The distal tubing of the nasogastric tube is seen coursing towards the stomach lumen. The distal tip of a Bismarck-Fausto catheter is in the proximal right main pulmonary artery. Cardiomegaly with no failure. No active infiltrate. IMPRESSION: No failure. Electronically signed by: Elena Bower M.D. Fatou Schwartz MD IMG XR PROCEDURES Final Result * (ABNORMAL) Calcium, ionized, whole blood (10/09/2024 4:25 PM RN QUALITY) Ca, ionized, bld 4.32(L) 4.50 - 5.10 mg/dL Blood 10/09/2024 4:25 PM RN QUALITY 10/09/2024 4:45 PM RN QUALITY Guillermo Mayes MD LAB BLOOD ORDERABLES Final R esult NICOLE [address] [address] Department [place] [address] * eGFR (10/09/2024 4:25 PM RN QUALITY) eGFR 76 >=60 mL/min/1. 73 m2 Comment: Interpretive Data Reference Interval Normal >/= 90 mL/min/1.73m2 Mildly decreased* 60 - 89 mL/min/1.73m2 Mildly to moderately decreased 45 - 59 mL/min/1.73m2 Moderately to severely decreased 30 - 44 mL/min/1.73m2 Severely decreased 15 - 29 mL/min/1.73m2 Kidney Failure < 15 mL/min/1.73m2 *Relative to young adult level Estimated glomerular filtration rate is determined by the 2020 CKD-EPI equation recommended by the National Kidney Foundation (A Unifying Approach to GFR Estimation: Recommendations of the NKF-ASK Task Force on Reassessing the Inclusion of Race in Diagnosing Kidney Disease, JASN 2020). The CKD-EPI equation should not be used for patients with unstable renal function and has not been validated in children and those over 70. Current interpretive data was last reviewed 2021. Blood 10/09/2024 4:25 PM RN QUALITY 10/09/2024 4:57 PM RN QUALITY Fatou Schwartz MD LAB BLOOD ORDERABLES Final Res ult Performing Organization Address [facility] de Phone Number NICOLE RAYGOZA [address] [facility] [place] [address] * (ABNORMAL) aPTT (10/09/2024 4:25 PM RN QUALITY) aPTT 58(H) 28 - 38 sec Comment: Interpretive Data Heparin therapeutic range: 66.0 - 100.0 seconds. Range based on correlation with therapeutic heparin activity range of 0.3 - 0.7 Units/mL. Current interpretive data was last revised on 2023. Blood 10/09/2024 4:25 PM RN QUALITY 10/09/2024 4:46 PM RN QUALITY Fatou Schwartz MD LAB BLOOD ORDERABLES Final Res ult Performing Organization Address [facility] de Phone Number NICOLE RAYGOZA [id number] [address] [facility] [place] [address] * (ABNORMAL) Protime-INR (10/09/2024 4:25 PM RN QUALITY) PT 13.8(H) 9.7 - 13.0 sec INR 1.27(H) 0.90 - 1.20 NICOLE RAYGOZA Comment: Interpretive data Oral anticoagulant therapeutic ranges: Venous thromboembolism prophylaxis or treatment: 2.0-3.0 CARDIOLOGY Standard range: 2.0-3.0 High-intensity range: 2.5-3.5 Refer to indication-specific guidelines for appropriate target ranges for prosthetic heart valve replacement. Current interpretive data was last revised on 2019. Blood 10/09/2024 4:25 PM RN QUALITY 10/09/2024 4:46 PM RN QUALITY Fatou Schwartz MD LAB BLOOD ORDERABLES Final Res ult Performing Organization Address [facility] Co de Phone Number NICOLE RAYGOZA [address] [address] [facility] [place] [address] * Fibrinogen (10/09/2024 4:25 PM RN QUALITY) Fibrinogen 178 170 - 400 mg/dL Blood 10/09/2024 4:25 PM RN QUALITY 10/09/2024 4:56 PM RN QUALITY Guillermo Mayes MD LAB BLOOD ORDERABLES Final R esult Performing Organization Address [facility] Co de Phone Number NICOLE RAYGOZA [address] [address] [place] [address] * (ABNORMAL) CBC without differential (10/09/2024 4:25 PM RN QUALITY) Pathologist [facility] WBC 7.8 3.8 - 9.9 K/cumm Hgb 10.6(L) 13.0 - 17.5 g/dL [facility] Comment:Hemoglobin delta due to surgical procedure. Hct 30.7(L) 38.9 - 50.3 % [facility] Plt 106(L) 150 - 400 K/cumm [facility] MPV 10.6 9.1 - 12.3 fL [facility] RBC 3.51(L) 4.30 - 5.80 M/cumm [facility] MCV 87.5 81.3 - 96.4 fL [facility] MCH 30.2 27.1 - 33.3 pg [facility] MCHC 34.5 32.3 - 35.7 g/dL [facility] RDW CV 13.2 11.1 - 14.9 % [facility] RDW SD 41.8 35.7 - 48.1 fL [facility] NRBC abs 0.00 0.00 - 0.01 K/cumm [facility] Blood 10/09/2024 4:25 PM RN QUALITY 10/09/2024 4:46 PM RN QUALITY us Fatou Schwartz MD LAB BLOOD ORDERABLES Final Res ult Performing Organization Address [facility] Co de Phone Number NICOLE RAYGOZA [phone] [address] [place] [address] * Phosphorus (10/09/2024 4:25 PM RN QUALITY) Pathologist [facility] Phosphorus, pl 2.9 2.3 - 4.5 mg/dL Blood 10/09/2024 4:25 PM RN QUALITY 10/09/2024 4:53 PM RN QUALITY Yvette Russell NP LAB BLOOD ORDERABLES Fin al Result Performing Organization Address [facility]/ZIP Co de Phone Number NICOLE RAYGOZA [address] [address] Liu Department of [employer] [place], [place] [id number] * Magnesium (10/09/2024 4:25 PM RN QUALITY) Magnesium 2.4 1.4 - 2.5 mg/dL Blood 10/09/2024 4:25 PM RN QUALITY 10/09/2024 4:45 PM RN QUALITY Guillermo Mayes MD LAB BLOOD ORDERABLES Final R esult Performing Organization Address [facility] de Phone Number NICOLE RAYGOZA [address] [address] Liu [place] [address] * (ABNORMAL) Blood gas, arterial (10/09/2024 4:25 PM RN QUALITY) pH, Art 7.44 7.35 - 7.45 PCO2, Arterial 30(L) 35 - 45 mmHg [facility] PO2, Arterial 224(H) 83 - 108 mmHg [facility] HCO3 Art (Calculated) 22 20 - 30 mmol/L [facility] BE, art -3 mmol/L [facility] Comment: Interpretive Data No Reference Range Established Current Interpretive Data was last revised on 2017 O2 Sat Art (Measured) 100(H) 90 - 95 % [facility] Blood 10/09/2024 4:25 PM RN QUALITY 10/09/2024 4:45 PM RN QUALITY Ftaou Schwartz MD LAB BLOOD ORDERABLES Final Res ult Performing Organization Address [facility]/ZIP Co de Phone Number NICOLE RAYGOZA [address] [address] Liu Department [place] [address] * (ABNORMAL) Basic metabolic panel (10/09/2024 4:25 PM RN QUALITY) Sodium 140 135 - 145 mmol/L Potassium, pl 3.8 3.3 - 4.9 mmol/L [facility] Chloride 109 97 - 110 mmol/L [facility] CO2 19(L) 22 - 32 mmol/L [facility] Anion gap 12 2 - 15 mmol/L [facility] BUN 16 6 - 25 mg/dL [facility] Creatinine 1.00 0.80 - 1.30 mg/dL [facility] Glucose 142 70 - 199 mg/dL [facility] Comment: Interpretive Data Fasting glucose >/= 126 mg/dl is diagnostic for diabetes. Fasting is defined as no caloric intake for at least 8 hours. Fasting glucose between 100 mg/dl to 125 mg/dl is diagnostic of prediabetes. In a patient with classic symptoms of hyperglycemia or hyperglycemic crisis, a random glucose >/= 200 mg/dl is diagnostic for diabetes. In the absence of unequivocal hyperglycemia, results should be confirmed by repeat testing. The classification and Diagnosis of Diabetes Diabetes Care 2021; 46: S19-S40. Current interpretive data was last revised 2022. Calcium 7.7(L) 8.5 - 10.3 mg/dL [facility] Blood 10/09/2024 4:25 PM RN QUALITY 10/09/2024 4:45 PM RN QUALITY Fatou Schwartz MD LAB BLOOD ORDERABLES Final Res ult Performing Organization Address City/[facility] Co de Phone Number [facility] [address] [address] [place] [address] * POCT glucose (10/09/2024 4:07 PM RN QUALITY) Glucose, POC 133 70 - 199 mg/dL Blood 10/09/2024 4:07 PM RN QUALITY 10/09/2024 4:07 PM RN QUALITY Fatou Schwartz MD LAB POCT ORDERABLES - DEVICE F inal Result Performing Organization Address City/[facility]/ZIP Co de Phone Number [facility] [address] [address] Liu Department [place] [address] * Prepare platelets: 2 Units (10/09/2024 3:37 PM RN QUALITY) Pathologist [facility] Product code [id number] Unit Number [id number]- A [facility] Product Blood Type OPOS [facility] Dispense Status PRESUMED TRANSFUSED [facility] Product code [id number] [facility] Unit Number [id number]- S [facility] Product Blood Type ABPO [facility] Dispense Status PRESUMED TRANSFUSED [facility] Blood Venous blood specimen / Unknown 10/09/2024 3:37 PM RN QUALITY Narrative [facility] - 10/10/2024 10:15 AM RN QUALITY Other indication->bleeding post cardiovascular surgery Are special requirements needed? (all products are leukoreduced)->No Date required:-[id number] PLT # of Units:-2-Units Reasons:-Other (Specify)} Guillermo Mayes MD BLOOD BANK PRODUCT ORDERABLE S Final Result Performing Organization Address [facility] Co de Phone Number NICOLE RAYGOZA [address] Department [place] [address] * POC Activated Clotting Time, High Range (10/09/2024 3:23 PM RN QUALITY) [facility] ACT 104 87 - 138 sec Blood 10/09/2024 3:23 PM RN QUALITY 10/09/2024 3:23 PM RN QUALITY Fatou Schwartz MD LAB BLOOD ORDERABLES Final Res ult Performing Organization Address [facility] Co de Phone Number NICOLE RAYGOZA [address] Department [place] [address] * (ABNORMAL) POC Blood Gas and Chemistries, Arterial - (10/09/2024 3:18 PM RN QUALITY) [facility] pH, Art POC 7.38 7.35 - 7.45 pCO2, Art POC 40 35 - 45 mmHg [facility] pO2, Art POC 102 83 - 108 mmHg [facility] Na, POC 137 135 - 145 mmol/L [facility] K POC 4.2 3.3 - 4.9 mmol/L [facility] Comment: Interpretive Data This method is not able to assess for hemolysis, which may falsely increase potassium concentrations. If further testing is needed to evaluate this result, consider in-laboratory plasma potassium. Current Interpretive Data was last revised on 2022. Ionized Ca, POC 4.51 4.50 - 5.10 mg/dL [facility] Glucose, POC 141 70 - 199 mg/dL [facility] Lactate, POC 1.0 0.7 - 2.0 mmol/L [facility] O2Hb, Art POC 97.7(H) 90.0 - 95.0 % [facility] SO2 (asiya) arterial 100(H) 90 - 95 % [facility] Total CO2, Art POC 25 21 - 30 mmol/L [facility] BE, art, POC -1 mmol/L [facility] Hct, POC 32.0(L) 38.9 - 50.3 % [facility] Total Hb, POC 10.8(L) 13.0 - 17.5 g/dL [facility] Blood 10/09/2024 3:18 PM RN QUALITY 10/09/2024 3:18 PM RN QUALITY Fatou Schwartz MD LAB POCT ORDERABLES - DEVICE F inal Result Performing Organization Address [facility] Co de Phone Number NICOLE RAYGOZA [address] [address] [employer] [place] [address] * (ABNORMAL) aPTT (10/09/2024 3:00 PM RN QUALITY) aPTT 42(H) 28 - 38 sec Comment: Interpretive Data Heparin therapeutic range: 66.0 - 100.0 seconds. Range based on correlation with therapeutic heparin activity range of 0.3 - 0.7 Units/mL. Current interpretive data was last revised on 2023. Blood 10/09/2024 3:00 PM RN QUALITY 10/09/2024 3:06 PM RN QUALITY Guillermo Mayes MD LAB BLOOD ORDERABLES Final R esult NICOLE RAYGOZA [address] [address] [facility] [place] [address] * (ABNORMAL) Protime-INR (10/09/2024 3:00 PM RN QUALITY) PT 16.7(H) 9.7 - 13.0 sec INR 1.53(H) 0.90 - 1.20 NICOLE RAYGOZA Comment: Interpretive data Oral anticoagulant therapeutic ranges: Venous thromboembolism prophylaxis or treatment: 2.0-3.0 CARDIOLOGY Standard range: 2.0-3.0 High-intensity range: 2.5-3.5 Refer to indication-specific guidelines for appropriate target ranges for prosthetic heart valve replacement. Current interpretive data was last revised on 2019. Blood 10/09/2024 3:00 PM RN QUALITY 10/09/2024 3:06 PM RN QUALITY Guillermo Mayes MD LAB BLOOD ORDERABLES Final R esult Performing Organization Address [facility] de Phone Number NICOLE [address] [place] [address] * Fibrinogen (10/09/2024 3:00 PM RN QUALITY) Pathologist [facility] Fibrinogen 188 170 - 400 mg/dL Blood 10/09/2024 3:00 PM RN QUALITY 10/09/2024 3:06 PM RN QUALITY Guillemro Mayes MD LAB BLOOD ORDERABLES Final R esult Performing Organization Address [facility] Co de Phone Number [facility] [address] [address] [facility] [place] [address] * (ABNORMAL) Platelet count (10/09/2024 3:00 PM RN QUALITY) Plt 114(L) 150 - 400 K/cumm Blood 10/09/2024 3:00 PM RN QUALITY 10/09/2024 3:06 PM RN QUALITY Guillermo Mayes MD LAB BLOOD ORDERABLES Final R esult Performing Organization Address [facility]/ZIP Co de Phone Number NICOLE RAYGOZA [address] Department [place] [address] * Transfuse platelets (10/09/2024 2:38 PM RN QUALITY) Blood Williams Carrillo MD BLOOD TRANSFUSION ORDERABLES Fin al Result Performing Organization Address City/[facility]/ZIP Co de Phone Number NICOLE RAYGOZA [address] [address] Department [place] [address] * (ABNORMAL) POC Blood Gas and Chemistries, Arterial - (10/09/2024 2:09 PM RN QUALITY) pH, Art POC 7.41 7.35 - 7.45 pCO2, Art POC 34(L) 35 - 45 mmHg [facility] pO2, Art POC 248(H) 83 - 108 mmHg [facility] Na, POC 136 135 - 145 mmol/L [facility] K POC 4.8 3.3 - 4.9 mmol/L [facility] Comment: Interpretive Data This method is not able to assess for hemolysis, which may falsely increase potassium concentrations. If further testing is needed to evaluate this result, consider in-laboratory plasma potassium. Current Interpretive Data was last revised on 2022. Ionized Ca, POC 4.77 4.50 - 5.10 mg/dL [facility] Glucose, POC 156 70 - 199 mg/dL [facility] Lactate, POC 1.5 0.7 - 2.0 mmol/L [facility] O2Hb, Art POC 97.6(H) 90.0 - 95.0 % [facility] SO2 (asiya) arterial 100(H) 90 - 95 % [facility] Total CO2, Art POC 23 21 - 30 mmol/L [facility] BE, art, POC -3 mmol/L [facility] Hct, POC 27.0(L) 38.9 - 50.3 % [facility] Total Hb, POC 9.1(L) 13.0 - 17.5 g/dL [facility] Blood 10/09/2024 2:09 PM RN QUALITY 10/09/2024 2:09 PM RN QUALITY Fatou Schwartz MD LAB POCT ORDERABLES - DEVICE F inal Result Performing Organization Address [facility] Co de Phone Number [place] [address] [address] [facility] [place] [address] * Transfuse plasma (10/09/2024 2:07 PM RN QUALITY) Blood Williams Carrillo MD BLOOD TRANSFUSION ORDERABLES Fin al Result Performing Organization Address [facility] Co de Phone Number NICOLE [address] [address] [facility] [place] [address] * Transfuse platelets (10/09/2024 2:03 PM RN QUALITY) Blood Williams Carrillo MD BLOOD TRANSFUSION ORDERABLES Kedar diogo Result - Final Performing Organization Address [facility] Co de Phone Number NICOLE [address] [address] Department [place] [address] * POC Activated Clotting Time, High Range (10/09/2024 2:03 PM RN QUALITY) ACT 129 87 - 138 sec Blood 10/09/2024 2:03 PM RN QUALITY 10/09/2024 2:03 PM RN QUALITY Fatou Schwartz MD LAB BLOOD ORDERABLES Final Res ult Performing Organization Address [facility] Co de Phone Number NICOLE [address] [address] [facility] [place] [address] * (ABNORMAL) POC Blood Gas and Chemistries, Arterial - (10/09/2024 1:34 PM RN QUALITY) pH, Art POC 7.37 7.35 - 7.45 pCO2, Art POC 39 35 - 45 mmHg [facility] pO2, Art POC 239(H) 83 - 108 mmHg [facility] Na, POC 135 135 - 145 mmol/L [facility] K POC 6.0(C) 3.3 - 4.9 mmol/L [facility] Comment: Interpretive Data This method is not able to assess for hemolysis, which may falsely increase potassium concentrations. If further testing is needed to evaluate this result, consider in-laboratory plasma potassium. Current Interpretive Data was last revised on 2022. Ionized Ca, POC 4.20(L) 4.50 - 5.10 mg/dL [facility] Glucose, POC 166 70 - 199 mg/dL [facility] Lactate, POC 1.5 0.7 - 2.0 mmol/L [facility] O2Hb, Art POC 97.9(H) 90.0 - 95.0 % [facility] SO2 (asiya) arterial 100(H) 90 - 95 % [facility] Total CO2, Art POC 24 21 - 30 mmol/L [facility] BE, art, POC -2 mmol/L [facility] Hct, POC 28.0(L) 38.9 - 50.3 % [facility] Total Hb, POC 9.3(L) 13.0 - 17.5 g/dL [facility] Blood 10/09/2024 1:34 PM RN QUALITY 10/09/2024 1:34 PM RN QUALITY Fatou Schwartz MD LAB POCT ORDERABLES - DEVICE F inal Result Performing Organization Address City/[facility]/ZIP Co de Phone Number NICOLE RAYGOZA [address] [address] [employer] [place] [address] * (ABNORMAL) POC Activated Clotting Time, High Range (10/09/2024 1:31 PM RN QUALITY) ACT 729(H) 87 - 138 sec Blood 10/09/2024 1:31 PM RN QUALITY 10/09/2024 1:31 PM RN QUALITY Fatou Schwartz MD LAB BLOOD ORDERABLES Final Res ult Performing Organization Address City/[facility]/ZIP Co de Phone Number NICOLE RAYGOZA [address] [address] Department [place] [address] * (ABNORMAL) POC Blood Gas and Chemistries, Arterial - (10/09/2024 1:08 PM RN QUALITY) Pathologist [facility] pH, Art POC 7.39 7.35 - 7.45 pCO2, Art POC 38 35 - 45 mmHg [facility] pO2, Art POC 203(H) 83 - 108 mmHg [facility] Na, POC 133(L) 135 - 145 mmol/L [facility] K POC 5.6(H) 3.3 - 4.9 mmol/L [facility] Comment: Interpretive Data This method is not able to assess for hemolysis, which may falsely increase potassium concentrations. If further testing is needed to evaluate this result, consider in-laboratory plasma potassium. Current Interpretive Data was last revised on 2022. Ionized Ca, POC 4.20(L) 4.50 - 5.10 mg/dL [facility] Glucose, POC 169 70 - 199 mg/dL [facility] Lactate, POC 1.2 0.7 - 2.0 mmol/L [facility] O2Hb, Art POC 98.0(H) 90.0 - 95.0 % [facility] SO2 (asiya) arterial 100(H) 90 - 95 % [facility] Total CO2, Art POC 24 21 - 30 mmol/L [facility] BE, art, POC -2 mmol/L [facility] Hct, POC 30.0(L) 38.9 - 50.3 % [facility] Total Hb, POC 9.9(L) 13.0 - 17.5 g/dL [facility] Blood 10/09/2024 1:08 PM RN QUALITY 10/09/2024 1:08 PM RN QUALITY Fatou Schwartz MD LAB POCT ORDERABLES - DEVICE F inal Result NICOLE RAYGOZA [address] [address] Department [place] [address] * (ABNORMAL) POC Activated Clotting Time, High Range (10/09/2024 1:06 PM RN QUALITY) Pathologist [facility] ACT 546(H) 87 - 138 sec Blood 10/09/2024 1:06 PM RN QUALITY 10/09/2024 1:06 PM RN QUALITY Fatou Schwartz MD LAB BLOOD ORDERABLES Final Res ult NICOLE RAYGOZA [address] Department [place] [address] * (ABNORMAL) Platelet count (10/09/2024 1:05 PM RN QUALITY) Plt 128(L) 150 - 400 K/cumm Blood 10/09/2024 1:05 PM RN QUALITY 10/09/2024 1:10 PM RN QUALITY us Guillermo Mayes MD LAB BLOOD ORDERABLES Final R esult Performing Organization Address [facility] de Phone Number NICOLE RAYGOZA [address] [address] Department [place] [address] * (ABNORMAL) POC Blood Gas and Chemistries, Arterial - (10/09/2024 12:31 PM RN QUALITY) pH, Art POC 7.39 7.35 - 7.45 pCO2, Art POC 39 35 - 45 mmHg [facility] pO2, Art POC 219(H) 83 - 108 mmHg [facility] Na, POC 134(L) 135 - 145 mmol/L [facility] K POC 5.2(H) 3.3 - 4.9 mmol/L [facility] Comment: Interpretive Data This method is not able to assess for hemolysis, which may falsely increase potassium concentrations. If further testing is needed to evaluate this result, consider in-laboratory plasma potassium. Current Interpretive Data was last revised on 2022. Ionized Ca, POC 4.27(L) 4.50 - 5.10 mg/dL [facility] Glucose, POC 154 70 - 199 mg/dL [facility] Lactate, POC 1.1 0.7 - 2.0 mmol/L [facility] O2Hb, Art POC 97.7(H) 90.0 - 95.0 % [facility] SO2 (asiya) arterial 100(H) 90 - 95 % [facility] Total CO2, Art POC 25 21 - 30 mmol/L [facility] BE, art, POC -1 mmol/L [facility] Hct, POC 30.0(L) 38.9 - 50.3 % [facility] Total Hb, POC 10.0(L) 13.0 - 17.5 g/dL [facility] Blood 10/09/2024 12:3 1 PM RN QUALITY 10/09/2024 12:31 PM RN QUALITY Fatou Schwartz MD LAB POCT ORDERABLES - DEVICE F inal Result Performing Organization Address [facility]/ZIP Co de Phone Number NICOLE RAYGOZA [address] [address] Department [place] [address] * (ABNORMAL) POC Activated Clotting Time, High Range (10/09/2024 12:29 PM RN QUALITY) Pathologist [facility] ACT 567(H) 87 - 138 sec Blood 10/09/2024 12:2 9 PM RN QUALITY 10/09/2024 12:29 PM RN QUALITY Fatou Schwartz MD LAB BLOOD ORDERABLES Final Res ult Performing Organization Address [facility] Co de Phone Number NICOLE RAYGOZA [address] [address] Department [place] [address] * (ABNORMAL) POC Blood Gas and Chemistries, Arterial - (10/09/2024 11:59 AM RN QUALITY) pH, Art POC 7.36 7.35 - 7.45 pCO2, Art POC 39 35 - 45 mmHg [facility] pO2, Art POC 216(H) 83 - 108 mmHg [facility] Na, POC 133(L) 135 - 145 mmol/L [facility] K POC 5.2(H) 3.3 - 4.9 mmol/L [facility] Comment: Interpretive Data This method is not able to assess for hemolysis, which may falsely increase potassium concentrations. If further testing is needed to evaluate this result, consider in-laboratory plasma potassium. Current Interpretive Data was last revised on 2022. Ionized Ca, POC 4.41(L) 4.50 - 5.10 mg/dL [facility] Glucose, POC 146 70 - 199 mg/dL [facility] Lactate, POC 1.0 0.7 - 2.0 mmol/L [facility] O2Hb, Art POC 98.0(H) 90.0 - 95.0 % [facility] SO2 (asiya) arterial 100(H) 90 - 95 % [facility] Total CO2, Art POC 23 21 - 30 mmol/L [facility] BE, art, POC -3 mmol/L [facility] Hct, POC 30.0(L) 38.9 - 50.3 % [facility] Total Hb, POC 10.0(L) 13.0 - 17.5 g/dL [facility] Blood 10/09/2024 11:5 9 AM RN QUALITY 10/09/2024 11:59 AM RN QUALITY Fatou Schwartz MD LAB POCT ORDERABLES - DEVICE F inal Result Performing Organization Address City/[facility]/ZIP Co de Phone Number NICOLE RAYGOZA [address] [address] Department of [employer] [place], [place] [id number] * (ABNORMAL) POC Activated Clotting Time, High Range (10/09/2024 11:57 AM RN QUALITY) ACT 673(H) 87 - 138 sec Blood 10/09/2024 11:5 7 AM RN QUALITY 10/09/2024 11:57 AM RN QUALITY Fatou Schwartz MD LAB BLOOD ORDERABLES Final Res ult Performing Organization Address [facility]/ZIP Co de Phone Number NICOLE IDALMIS [address] [address] Department of [employer] [place], [place] [id number] * (ABNORMAL) POC Blood Gas and Chemistries, Arterial - (10/09/2024 11:29 AM RN QUALITY) pH, Art POC 7.36 7.35 - 7.45 pCO2, Art POC 39 35 - 45 mmHg [facility] pO2, Art POC 236(H) 83 - 108 mmHg [facility] Na, POC 132(L) 135 - 145 mmol/L [facility] K POC 4.8 3.3 - 4.9 mmol/L [facility] Comment: Interpretive Data This method is not able to assess for hemolysis, which may falsely increase potassium concentrations. If further testing is needed to evaluate this result, consider in-laboratory plasma potassium. Current Interpretive Data was last revised on 2022. Ionized Ca, POC 4.34(L) 4.50 - 5.10 mg/dL [facility] Glucose, POC 130 70 - 199 mg/dL [facility] Lactate, POC 0.8 0.7 - 2.0 mmol/L [facility] O2Hb, Art POC 97.5(H) 90.0 - 95.0 % [facility] SO2 (asiya) arterial 99(H) 90 - 95 % [facility] Total CO2, Art POC 23 21 - 30 mmol/L [facility] BE, art, POC -3 mmol/L [facility] Hct, POC 30.0(L) 38.9 - 50.3 % [facility] Total Hb, POC 10.0(L) 13.0 - 17.5 g/dL [facility] Blood 10/09/2024 11:2 9 AM RN QUALITY 10/09/2024 11:29 AM RN QUALITY Fatou Schwartz MD LAB POCT ORDERABLES - DEVICE F inal Result Performing Organization Address City/[facility]/ZIP Co de Phone Number NICOLE RAYGOZA [address] [address] [place] [address] * (ABNORMAL) POC Activated Clotting Time, High Range (10/09/2024 11:27 AM RN QUALITY) ACT 564(H) 87 - 138 sec Blood 10/09/2024 11:2 7 AM RN QUALITY 10/09/2024 11:27 AM RN QUALITY Fatou Schwartz MD LAB BLOOD ORDERABLES Final Res ult NICOLE IDALMIS [address] [address] Department [employer] [place], [place] [id number] * (ABNORMAL) POC Blood Gas and Chemistries, Arterial - (10/09/2024 10:55 AM RN QUALITY) pH, Art POC 7.32(L) 7.35 - 7.45 pCO2, Art POC 43 35 - 45 mmHg [facility] pO2, Art POC 267(H) 83 - 108 mmHg [facility] Na, POC 131(L) 135 - 145 mmol/L [facility] K POC 4.9 3.3 - 4.9 mmol/L [facility] Comment: Interpretive Data This method is not able to assess for hemolysis, which may falsely increase potassium concentrations. If further testing is needed to evaluate this result, consider in-laboratory plasma potassium. Current Interpretive Data was last revised on 2022. Ionized Ca, POC 4.31(L) 4.50 - 5.10 mg/dL [facility] Glucose, POC 104 70 - 199 mg/dL [facility] Lactate, POC 0.6(L) 0.7 - 2.0 mmol/L [facility] O2Hb, Art POC 97.8(H) 90.0 - 95.0 % [facility] SO2 (asiya) arterial 100(H) 90 - 95 % [facility] Total CO2, Art POC 24 21 - 30 mmol/L [facility] BE, art, POC -4 mmol/L [facility] Hct, POC 30.0(L) 38.9 - 50.3 % [facility] Total Hb, POC 10.1(L) 13.0 - 17.5 g/dL [facility] Blood 10/09/2024 10:5 5 AM RN QUALITY 10/09/2024 10:55 AM RN QUALITY Fatou Schwartz MD LAB POCT ORDERABLES - DEVICE F inal Result Performing Organization Address [facility] Co de Phone Number [facility] [address] [address] Department [place] [address] * (ABNORMAL) POC Activated Clotting Time, High Range (10/09/2024 10:53 AM RN QUALITY) ACT 539(H) 87 - 138 sec Blood 10/09/2024 10:5 3 AM RN QUALITY 10/09/2024 10:53 AM RN QUALITY Fatou Schwartz MD LAB BLOOD ORDERABLES Final Res ult NICOLE [address] [facility] Department [place] [address] * Surgical pathology (10/09/2024 10:29 AM RN QUALITY) Tissue specimen (specimen) (Heart Valve) 10/09/2024 12:38 PM RN QUALITY Narrative PATHOLOGY - 10/11/2024 3:54 PM RN QUALITY EPIC results best viewed via link to PDF [facility] Department of Pathology [address] [place], [place] [id number] Note to Patients: This report may contain a detailed description of human tissue sent by a health care provider to the laboratory for pathologic evaluation. The content of this report is essential for diagnosis and may provide important critical findings. This information may be unfamiliar to patients to review without a medical professional present. It is advised that the patient review this report in the presence of a health care provider who can answer questions and explain the details. Final Report Patient Name: TREVOR SHAW Address: [address] [place] [address] Gender: M : 1945 (Age: 79) Service: Cardiothoracic Location: Hospital #: [id number] Patient Type: [facility] Taken: 10/09/2024 Received: 10/10/2024 Accessioned: 10/10/2024 Reported: 10/11/2024 Physician(s):Rodo Kelly NP Diagnosis: Heart valve, aortic valve, aortic valve replacement: - Nodular fibrosis, dystrophic calcification and focal myxoid degeneration, clinically aortic valve stenosis. Oli Romo M.D. Report Electronically Reviewed and Signed Out By Oli Romo M.D. 10/11/2024 15:54:13 Specimen(s) Received: A: Aortic valve leaflets Microscopic Description: Microscopic examination of the decalcified sections of the aortic valve show nodular fibrosis, dystrophic calcification and focal myxoid degeneration. Clinical History: Coronary artery disease involving nulato coronary artery of nulato heart without angina pectotis, nonrheumatic aortic valve stenosis Procedure: coronary artery bypass graft - internal mammary / saphenous vein graft - leg, replacement aortic valve Gross Description: Received in a single formalin filled container labeled with TREVOR SHAW and aortic valve leaflets .It is three, 1.8 through 2.5 cm cusp shaped semi-lunar heart valve leaflets. They are thickened nodular and calcified. Sections are decalcified. Represented in one cassette. Cyndi Cagle R.N., P.A./Ayesha Smith M.D. REPORT IMAGES AND SCANNED DOCUMENTS, IF INCLUDED, ONLY VIEWABLE IN PDF VERSION OF REPORT The performance characteristics of some immunohistochemical stains, fluorescence in-situ hybridization tests and immunophenotyping by flow cytometry cited in this report (if any) were determined by the Surgical Pathology Department at [facility] as part of an ongoing quality control supervisor program and in compliance with federally mandated regulations drawn from the Clinical Laboratory Improvement Act of 1988 (CLIA '88). Some of these tests rely on the use of analyte specific reagents and are subject to specific labeling requirements by the US Food and Drug Administration. Such diagnostic tests may only be performed in a facility that is certified by the Department of Health and Human Services as a high complexity laboratory under CLIA '88. The FDA has determined that such clearance or approval is not necessary. This test is used for clinical purposes. It should not be regarded as investigational or for research. Nevertheless, federal rules concerning the medical use of analyte specific reagents require that the following disclaimer be attached to the report: This test was developed and its performance characteristics determined by the Surgical Pathology Department [facility]. It has not been cleared or approved by the U. S. Food and Drug Administration. Note for decalcified specimens: This assay has not been validated on decalcified tissues. Results should be interpreted with caution given the possibility of false negativity on decalcified specimens us Guillermo Mayes MD LAB PATHOLOGY ORDERABLES Fin al Result PATHOLOGY [address] [place] [address] * (ABNORMAL) POC Blood Gas and Chemistries, Arterial - (10/09/2024 10:00 AM RN QUALITY) pH, Art POC 7.35 7.35 - 7.45 pCO2, Art POC 43 35 - 45 mmHg [facility] pO2, Art POC 399(H) 83 - 108 mmHg [facility] Na, POC 132(L) 135 - 145 mmol/L [facility] K POC 3.9 3.3 - 4.9 mmol/L [facility] Comment: Interpretive Data This method is not able to assess for hemolysis, which may falsely increase potassium concentrations. If further testing is needed to evaluate this result, consider in-laboratory plasma potassium. Current Interpretive Data was last revised on 2022. Ionized Ca, POC 4.55 4.50 - 5.10 mg/dL [facility] Glucose, POC 99 70 - 199 mg/dL [facility] Lactate, POC 0.5(L) 0.7 - 2.0 mmol/L [facility] O2Hb, Art POC 97.5(H) 90.0 - 95.0 % [facility] SO2 (asiya) arterial 100(H) 90 - 95 % [facility] Total CO2, Art POC 25 21 - 30 mmol/L [facility] BE, art, POC -2 mmol/L [facility] Hct, POC 41.0 38.9 - 50.3 % [facility] Total Hb, POC 13.6 13.0 - 17.5 g/dL [facility] Blood 10/09/2024 10:0 0 AM RN QUALITY 10/09/2024 10:00 AM RN QUALITY Fatou Schwartz MD LAB POCT ORDERABLES - DEVICE F inal Result Performing Organization Address [facility]/ZIP Co de Phone Number NICOLE [address] [address] Department [place] [address] * (ABNORMAL) POC Activated Clotting Time, High Range (10/09/2024 9:54 AM RN QUALITY) ACT 619(H) 87 - 138 sec Blood 10/09/2024 9:54 AM RN QUALITY 10/09/2024 9:54 AM RN QUALITY Ftaou Schwartz MD LAB BLOOD ORDERABLES Final Res ult NICOLE RAYGOZA [address] [address] Department [place] [address] * BW AN SHEATH INTRODUCER PERFORMABLE, PULMONARY ARTERY CATH (10/09/2024 9:32 AM RN QUALITY) Brannon Robledo AA - 10/09/2024 9:32 AM RN QUALITY Brannon Jeffers AA 10/09/2024 9:34 AM Central Venous Line Patient location: OR End Time: 10/09/2024 8:31 AM Indication: central venous access and CVP monitoring Staff: Supervising provider: Williams Carrillo MD Procedure prep: Patient position: Trendelenburg. PPE: provider hand hygiene, provider hat/mask, sterile gloves, sterile gown, full body drape, sterile probe covers, sterile gel and large sterile drape. Prep solution: chlorhexadine/alcohol was applied to area. Ultrasound Evaluation: Ultrasound was prepped into field. Ultrasound image(s) saved to archive. Central line: Laterality: right Site: internal jugular Catheter type: multi-lumen access catheter (MAC) Catheter size: 9 Fr. Catheter length: 11.5 cm Technique: anatomy identified with surface landmarks, anatomy identified with ultrasound, vein located with finder needle, Seldinger technique, wire threaded easily and wire removed intact Venous verification: pressure transduced and ultrasound confirmation Post insertion: all ports aspirated, all ports flushed easily, line sutured in place and occlusive dressing applied Number of attempts: 1 PA catheter placement: PA catheter type: oximetric PA catheter size: 8 Fr PA catheter laterality: right PA catheter site: internal jugular Placement guided by: pressure tracing changes and verified by TEENo Assessment: Events: patient tolerated procedure well with no complications Additional comments: Placed by Samantha Heredia NP under direct supervision us Williams Carrillo MD ANESTHESIA ORDERABLES Final Resu lt * Arterial Line (10/09/2024 9:23 AM RN QUALITY) Brannon Robledo AA - 10/09/2024 9:23 AM RN QUALITY Brannon Jeffers AA 10/09/2024 9:32 AM Arterial Line Patient location: pre-op holding Indication: continuous blood pressure monitoring and blood sampling needed Staff: Supervising provider: Williams Carrillo MD Placed by: MACIEJ: Brannon Jeffers AA Procedure prep: Prep solution: chlorhexadine/alcohol Prep: provider hat/mask and sterile gloves Skin infiltrated with lidocaine 1%: yes Arterial line: Catheter size: 20 gauge Catheter length: 1 and 3/4 inch Catheter type: wire-guided catheter Seldinger technique: yes Laterality: right Site: radial artery Line secured: Tegaderm and tape Results: good waveform and good blood return Number of attempts: 1 Assessment: Events: patient tolerated procedure well with no complications Additional comments: Kristel WANG placed A line under direct supervision us Williams Carrillo MD ANESTHESIA ORDERABLES Edited Res ult - Final * GENEVA (10/09/2024 9:18 AM RN QUALITY) Anatomical Region Laterality Modality Other Narrative 10/09/2024 9:18 AM RN QUALITY Williams Carrillo MD 10/09/2024 9:20 AM GENEVA Date/time: 10/09/2024 9:18 AM Staff: Supervising anesthesiologist: Williams Carrillo MD Performed by: Anesthesiologist: Williams Carrillo MD Preprocedure checklist: patient identified, procedure contraindications assessed and GENEVA probe inserted into esophagus using lubricating jelly General procedure Information: Reason for procedure/indications: assessment of surgical repair and hemodynamic monitoring Procedure performed at surgeon's request: yes Results discussed with surgeon: yes Images submitted to archive: no Patient location: OR Intubated: yes Bite blocked placed: yes Probe Insertion: easy Complications: no Probe type: adult Modalities: 2D imaging, continuous wave Doppler, pulsed wave Doppler and color Doppler Echocardiographic and doppler measurements: Ventricles: Left ventricle: Cavity size: normal Hypertrophy: Yes Thrombus: No Global function: normal LVEF%: normal Right ventricle: Cavity size: normal Hypertrophy: no Thrombus: No Global function: normal RVEF%: normal Interventricular septum: normal Regional function: 1- Basal anteroseptal: normal 2- Basal anterior: normal 3- Basal anterolateral: normal 4- Basal inferolateral: normal 5- Basal inferior: normal 6- Basal inferoseptal: normal 7- Mid anteroseptal: normal 8- Mid anterior: normal 9- Mid anterolateral: normal 10- Mid inferolateral: normal 11- Mid inferior: normal 12- Mid inferoseptal: normal 13- Apical anterior: normal 14- Apical lateral: normal 15- Apical inferior: normal 16- Apical septal: normal 17- [place]: normal Valves: Aortic Valve: Annulus: normal Leaflet morphology: thickened Leaflet motion: restricted Stenosis: mild Regurgitation: trace Mitral valve: Annulus: normal Leaflet morphology anterior: normal Leaflet morphology posterior: normal Leaflet motion anterior: normal Leaflet motion posterior: normal Stenosis: none Regurgitation: mild Tricuspid valve: Annulus: normal Leaflet morphology: normal Leaflet motion: normal Stenosis: none Regurgitation: mild Aorta: Ascending aorta: Size: normal Dissection: no Plaque mobile: no Descending aorta: Size: normal Dissection: no Plaque thickness(mm): 0-3 Plaque mobile: no Atria: Right atrium: Size: normal Spontaneous echo contrast: No Thrombus: no Mass: No Left atrium: Size: normal (normal) Spontaneous echo contrast: No Thrombus: no Mass: No Left atrial appendage: normal Interatrial septum: normal Diastolic function and other findings: Diastolic function: normal Pericardium: normal Left pleural effusion: none Right pleural effusion: normal Pulmonary venous flow: normal Attestation Statement: By signing this report the attending anesthesiologist certifies that he or she has personally reviewed and interpreted the echocardiogram and has reviewed and or edited and agrees with the written comments contained within the report. us Williams Carrillo MD ANESTHESIA ORDERABLES Final Resu lt * LA AN ELECTIVE ENDOTRACHEAL AIRWAY (10/09/2024 9:07 AM RN QUALITY) Narrative Brannon Jeffers AA - 10/09/2024 9:07 AM RN QUALITY Brannon Jeffers AA 10/09/2024 9:32 AM Airway Patient location: OR Urgency: elective Date/time: 10/09/2024 8:10 AM Indications for airway management: anesthesia Difficult airway: no Staff: Supervising provider: Williams Carrillo MD Emergent airway documentation: Risks and benefits discussed: yes Consent obtained: yes Airway prep: Preoxygenated: yes Patient position: sniffing Mask difficulty assessment: 2 - vent by mask + OA or adjuvant Spontaneous ventilation during airway: absent Sedation level during airway: GA Final airway details: Final airway type: endotracheal airway Tube type: ETT ETT size: 8.0 mm Cuffed: yes Technique used for successful ETT placement: video laryngoscopy Insertion site: oral Blade type: Shelley Video blade type: Holt Blade size: 3 Cormack-Lehane (video): grade I - full view of glottis Cuff inflated with: air ETT to lips: 22 cm Placement verified by: auscultation and CO2 detection Airway secured with: silk tape Number of attempts: 1 Additional comments: Placed by Kristel WANG under direct supervision us Williams Carrillo MD ANESTHESIA ORDERABLES Edited Res ult - Final * (ABNORMAL) POC Blood Gas and Chemistries, Arterial - (10/09/2024 8:49 AM RN QUALITY) pH, Art POC 7.41 7.35 - 7.45 pCO2, Art POC 42 35 - 45 mmHg [facility] pO2, Art POC 398(H) 83 - 108 mmHg [facility] Na, POC 132(L) 135 - 145 mmol/L [facility] K POC 4.3 3.3 - 4.9 mmol/L [facility] Comment: Interpretive Data This method is not able to assess for hemolysis, which may falsely increase potassium concentrations. If further testing is needed to evaluate this result, consider in-laboratory plasma potassium. Current Interpretive Data was last revised on 2022. Ionized Ca, POC 4.71 4.50 - 5.10 mg/dL [facility] Glucose, POC 98 70 - 199 mg/dL [facility] Lactate, POC 0.5(L) 0.7 - 2.0 mmol/L [facility] O2Hb, Art POC 97.4(H) 90.0 - 95.0 % [facility] SO2 (asiya) arterial 99(H) 90 - 95 % [facility] Total CO2, Art POC 28 21 - 30 mmol/L [facility] BE, art, POC 2 mmol/L [facility] Hct, POC 41.0 38.9 - 50.3 % [facility] Total Hb, POC 13.8 13.0 - 17.5 g/dL [facility] Blood 10/09/2024 8:49 AM RN QUALITY 10/09/2024 8:49 AM RN QUALITY us Fatou Schwartz MD LAB POCT ORDERABLES - [place] [address] Department [place] [address] * POC Activated Clotting Time, High Range (10/09/2024 8:46 AM RN QUALITY) Pathologist [facility] ACT 101 87 - 138 sec Blood 10/09/2024 8:46 AM RN QUALITY 10/09/2024 8:46 AM RN QUALITY Fatou Schwartz MD LAB BLOOD ORDERABLES Final Res ult Performing Organization Address [facility] de Phone Number NICOLE [address] [address] [place] [address] * (ABNORMAL) aPTT (10/09/2024 4:30 AM RN QUALITY) [facility] aPTT 54(H) 28 - 38 sec Comment: Interpretive Data Heparin therapeutic range: 66.0 - 100.0 seconds. Range based on correlation with therapeutic heparin activity range of 0.3 - 0.7 Units/mL. Current interpretive data was last revised on 2023. Blood 10/09/2024 4:30 AM RN QUALITY 10/09/2024 5:44 AM RN QUALITY Fatou Schwartz MD LAB BLOOD ORDERABLES Final Res ult Performing Organization Address [facility] de Phone Number NICOLE RAYGOZA [address] [address] [facility] [place] [address] * CBC without differential (10/09/2024 4:30 AM RN QUALITY) [facility] WBC 5.0 3.8 - 9.9 K/cumm Hgb 14.4 13.0 - 17.5 g/dL [facility] Hct 42.9 38.9 - 50.3 % [facility] Plt 158 150 - 400 K/cumm [facility] MPV 11.3 9.1 - 12.3 fL [facility] RBC 4.76 4.30 - 5.80 M/cumm [facility] MCV 90.1 81.3 - 96.4 fL [facility] MCH 30.3 27.1 - 33.3 pg [facility] MCHC 33.6 32.3 - 35.7 g/dL [facility] RDW CV 13.2 11.1 - 14.9 % [facility] RDW SD 42.9 35.7 - 48.1 fL [facility] NRBC abs 0.00 0.00 - 0.01 K/cumm [facility] Blood 10/09/2024 4:30 AM RN QUALITY 10/09/2024 5:43 AM RN QUALITY Narrative [facility] - 10/09/2024 6:14 AM RN QUALITY While on heparin infusion Fatou Schwartz MD LAB BLOOD ORDERABLES Final Res ult Performing Organization Address [facility] Co de Phone Number NICOLE RAYGOZA [address] [address] [facility] [place] [address] * (ABNORMAL) aPTT (10/08/2024 6:57 PM RN QUALITY) aPTT 72(H) 28 - 38 sec Comment: Interpretive Data Heparin therapeutic range: 66.0 - 100.0 seconds. Range based on correlation with therapeutic heparin activity range of 0.3 - 0.7 Units/mL. Current interpretive data was last revised on 2023. Blood 10/08/2024 6:57 PM RN QUALITY 10/08/2024 7:10 PM RN QUALITY Fatou Schwartz MD LAB BLOOD ORDERABLES Final Res ult Performing Organization Address City/[facility] Co de Phone Number NICOLE RAYGOZA [address] [address] [facility] [place] [address] * (ABNORMAL) aPTT (10/08/2024 12:52 PM RN QUALITY) aPTT 49(H) 28 - 38 sec Comment: Interpretive Data Heparin therapeutic range: 66.0 - 100.0 seconds. Range based on correlation with therapeutic heparin activity range of 0.3 - 0.7 Units/mL. Current interpretive data was last revised on 2023. Blood 10/08/2024 12:5 2 PM RN QUALITY 10/08/2024 1:06 PM RN QUALITY us Fatou Schwartz MD LAB BLOOD ORDERABLES Final Res ult [facility] [address] [address] Department [place] [address] * Differential, auto (10/08/2024 11:35 AM RN QUALITY) Neutrophil abs 3.1 1.5 - 6.5 K/cumm Imm gran abs 0.0 0.0 - 0.1 K/cumm [facility] Lymphocyte abs 1.3 0.8 - 3.3 K/cumm [facility] Monocyte abs 0.5 0.2 - 0.8 K/cumm [facility] Eosinophil abs 0.2 0.0 - 0.5 K/cumm [facility] Basophil abs 0.1 0.0 - 0.1 K/cumm [facility] Neutrophil pct 60.5 % [facility] Comment: Interpretive Data Percent cell count reference ranges are not reported, since discordance with absolute values may lead to misinterpretation of CBC data. Current Interpretive Data was last revised on 2017. Imm gran pct 0.4 % [facility] Comment: Interpretive Data Percent cell count reference ranges are not reported, since discordance with absolute values may lead to misinterpretation of CBC data. Current Interpretive Data was last revised on 2017. Lymphocyte pct 24.6 % [facility] Comment: Interpretive Data Percent cell count reference ranges are not reported, since discordance with absolute values may lead to misinterpretation of CBC data. Current Interpretive Data was last revised on 2017. Monocyte pct 9.4 % [facility] Comment: Interpretive Data Percent cell count reference ranges are not reported, since discordance with absolute values may lead to misinterpretation of CBC data. Current Interpretive Data was last revised on 2017. Eosinophil pct 3.9 % [facility] Comment: Interpretive Data Percent cell count reference ranges are not reported, since discordance with absolute values may lead to misinterpretation of CBC data. Current Interpretive Data was last revised on 2017. Basophil pct 1.2 % [facility] Comment: Interpretive Data Percent cell count reference ranges are not reported, since discordance with absolute values may lead to misinterpretation of CBC data. Current Interpretive Data was last revised on 2017. Blood 10/08/2024 11:3 5 AM RN QUALITY 10/08/2024 12:43 PM RN QUALITY Jewel Heart MD LAB BLOOD ORDERABLES Kamla l Result Performing Organization Address [facility] Co de Phone Number [facility] [address] [address] [facility] [place] [address] * Check Sample (10/08/2024 11:35 AM RN QUALITY) ABO Rh O Positive [facility] OTHER 10/08/2024 11:3 5 AM RN QUALITY 10/08/2024 12:43 PM RN QUALITY Fatou Schwartz MD LAB BLOOD ORDERABLES Final Res ult Performing Organization Address [facility] de Phone Number [facility] [address] [address] [facility] [place] [address] CH * CBC with auto differential (10/08/2024 11:35 AM RN QUALITY) WBC 5.1 3.8 - 9.9 K/cumm Hgb 14.8 13.0 - 17.5 g/dL [facility] Hct 45.0 38.9 - 50.3 % [facility] Plt 168 150 - 400 K/cumm [facility] MPV 10.9 9.1 - 12.3 fL [facility] RBC 4.90 4.30 - 5.80 M/cumm [facility] MCV 91.8 81.3 - 96.[address] [facility] CH MCH 30.2 27.1 - 33.3 pg [facility] MCHC 32.9 32.3 - 35.7 g/dL [facility] CH RDW CV 13.2 11.1 - 14.9 % [facility] CH RDW SD 44.5 35.7 - 48.1 fL [facility] NRBC abs 0.00 0.00 - 0.01 K/cumm [facility] Blood 10/08/2024 11:3 5 AM RN QUALITY 10/08/2024 12:43 PM RN QUALITY Jewel Heart MD LAB BLOOD ORDERABLES Kamla l Result Performing Organization Address [facility] Co de Phone Number NICOLE [address] [address] Department [place] [address] * (ABNORMAL) aPTT (10/08/2024 11:35 AM RN QUALITY) Pathologist [facility] aPTT 57(H) 28 - 38 sec Comment: Interpretive Data Heparin therapeutic range: 66.0 - 100.0 seconds. Range based on correlation with therapeutic heparin activity range of 0.3 - 0.7 Units/mL. Current interpretive data was last revised on 2023. Blood 10/08/2024 11:3 5 AM RN QUALITY 10/08/2024 12:43 PM RN QUALITY Fatou Schwartz MD LAB BLOOD ORDERABLES Final Res ult Performing Organization Address [facility] de Phone Number [facility] [address] [address] [facility] [place] [address] * Type and screen (10/08/2024 11:35 AM RN QUALITY) [facility] Nani, indirect Negative ABO Rh O Positive [facility] Blood 10/08/2024 11:3 5 AM RN QUALITY 10/08/2024 12:44 PM RN QUALITY Narrative [facility] - 10/08/2024 1:20 PM RN QUALITY Has the patient had Daratumumab or Isatuximab in the past 6 months?->Unknown Migdalia Salcedo NP LAB BLOOD BANK TEST ORDERA BLES Final Result Performing Organization Address [facility] Co de Phone Number NICOLE [address] [address] Department [place] [address] * Prepare platelets: 2 Units (10/08/2024 10:57 AM RN QUALITY) Pathologist [facility] Product code [id number] Unit Number [id number] [facility] Product Blood Type OPOS [facility] Dispense Status PRESUMED TRANSFUSED [facility] Product code [id number] [facility] Unit Number [id number] [facility] Product Blood Type APOS [facility] Dispense Status PRESUMED TRANSFUSED [facility] Blood Venous blood specimen / Unknown 10/08/2024 10:57 AM RN QUALITY Narrative [facility] - 10/09/2024 10:15 PM RN QUALITY Specify Procedure:->CABG AVR Are special requirements needed? (all products are leukoreduced)->No Date required:-20241009 PLT # of Units:-2-Units Reasons:-Hold for procedure (specify procedure)} Migdalia Salcedo NP BLOOD BANK PRODUCT ORDERAB LES Final Result Performing Organization Address [facility] Phone Number [facility] [address] [address] [facility] [place] [address] * Prepare plasma: 2 Units Standard plasma (10/08/2024 10:57 AM RN QUALITY) [facility] Product code [id number] Unit Number [id number] [facility] Product Blood Type APOS [facility] Dispense Status PRESUMED TRANSFUSED [facility] Blood Venous blood specimen / Unknown 10/08/2024 10:57 AM RN QUALITY Narrative NICOLE - 10/09/2024 10:15 PM RN QUALITY Specify Procedure:->CABG AVR Is this plasma order intended for a COVID-19 patient as convalescent plasma?->Standard plasma Special Requirements Needed?->No Date required:-20241009 FFP # of Units:-2-Units Reasons:-Hold for procedure (specify procedure)} Migdalia Salcedo NP BLOOD BANK PRODUCT ORDERAB LES Final Result Performing Organization Address [facility] de Phone Number [facility] [address] [address] [facility] [place] [address] * Prepare RBC: 4 Units (10/08/2024 10:57 AM RN QUALITY) [facility] Product code [id number] Unit Number [id number] 7-7 [facility] Product Blood Type OPOS [facility] Dispense Status RETURNED [facility] Product code [id number] [facility] Unit Number [id number] 5-G [facility] Product Blood Type OPOS [facility] Dispense Status RETURNED [facility] Product code [id number] [facility] Unit Number [id number] 2-* [facility] Product Blood Type OPOS CERNER CH Dispense Status RETURNED [facility]ERN[facility] Product code [id number] [facility] Unit Number [id number] 9-N [facility] Product Blood Type OPOS CERNER CH Dispense Status RETURNED [facility] Blood 10/08/2024 10:5 7 AM RN QUALITY Narrative [facility] - 10/12/2024 12:10 AM RN QUALITY Specify Procedure:->CABG AVR Are special requirements needed? (All products are leukoreduced and CMV- safe)- >No Date required:-[id number] LRRBC # of [id number] Reasons:-Hold for procedure (specify procedure)} us Migdalia Salcedo NP BLOOD BANK PRODUCT ORDERAB LES Final Result Performing Organization Address [facility]/ZIP Co de Phone Number NICOLE RAYGOZA [address] [address] [place] [address] * (ABNORMAL) aPTT (10/08/2024 3:57 AM RN QUALITY) aPTT 48(H) 28 - 38 sec Comment: Interpretive Data Heparin therapeutic range: 66.0 - 100.0 seconds. Range based on correlation with therapeutic heparin activity range of 0.3 - 0.7 Units/mL. Current interpretive data was last revised on 2023. Blood 10/08/2024 3:57 AM RN QUALITY 10/08/2024 4:50 AM RN QUALITY us Fatou Schwartz MD LAB BLOOD ORDERABLES Final Res ult NICOLE RAYGOZA [address] [address] Liu [place] [address] * (ABNORMAL) aPTT (10/07/2024 7:05 AM RN QUALITY) aPTT 78(H) 28 - 38 sec Comment: Interpretive Data Heparin therapeutic range: 66.0 - 100.0 seconds. Range based on correlation with therapeutic heparin activity range of 0.3 - 0.7 Units/mL. Current interpretive data was last revised on 2023. Blood 10/07/2024 7:05 AM RN QUALITY 10/07/2024 7:12 AM RN QUALITY us Guillermo Mayes MD LAB BLOOD ORDERABLES Final R esult NICOLE [address] [address] Department [place] [address] * XR Chest 1 View (10/06/2024 9:13 AM RN QUALITY) Anatomical Region Laterality Modality Body, Chest N/A Computed Radiogr aphy 10/06/2024 9:39 AM RN QUALITY Impressions 10/06/2024 9:39 AM RN QUALITY No active disease. Electronically signed by: Elena Bower M.D. Narrative 10/06/2024 9:39 AM RN QUALITY EXAMINATION: XR CHEST 1 VIEW HISTORY: The patient is an 79-year-old male who has fever. Comparison made with the previous study dated 10/04/2024. TECHNIQUE: AP portable view of the chest. FINDINGS: Lungs clear. Cardiovascular structures unremarkable. Procedure Note Elena Bower MD - 10/06/2024 EXAMINATION: XR CHEST 1 VIEW HISTORY: The patient is an 79-year-old male who has fever. Comparison made with the previous study dated 10/04/2024. TECHNIQUE: AP portable view of the chest. FINDINGS: Lungs clear. Cardiovascular structures unremarkable. IMPRESSION: No active disease. Electronically signed by: Elena Bower M.D. us Migdalia Salcedo [employer] IMG XR PROCEDURES Final Re sult * (ABNORMAL) aPTT (10/06/2024 4:53 AM RN QUALITY) aPTT 86(H) 28 - 38 sec Comment: Interpretive Data Heparin therapeutic range: 66.0 - 100.0 seconds. Range based on correlation with therapeutic heparin activity range of 0.3 - 0.7 Units/mL. Current interpretive data was last revised on 2023. Blood 10/06/2024 4:53 AM RN QUALITY 10/06/2024 5:25 AM RN QUALITY Fatou Schwartz MD LAB BLOOD ORDERABLES Final Res ult [facility] [address] [address] Department [place] [address] * CBC without differential (10/06/2024 12:10 AM RN QUALITY) WBC 6.3 3.8 - 9.9 K/cumm Hgb 14.5 13.0 - 17.5 g/dL [facility] Hct 42.6 38.9 - 50.3 % [facility] Plt 171 150 - 400 K/cumm [facility] MPV 10.9 9.1 - 12.3 fL [facility] RBC 4.75 4.30 - 5.80 M/cumm [facility] MCV 89.7 81.3 - 96.4 fL [facility] MCH 30.5 27.1 - 33.3 pg [facility] MCHC 34.0 32.3 - 35.7 g/dL [facility] RDW CV 13.0 11.1 - 14.9 % [facility] RDW SD 42.5 35.7 - 48.1 fL [facility] NRBC abs 0.00 0.00 - 0.01 K/cumm [facility] Blood 10/06/2024 12:1 0 AM RN QUALITY 10/06/2024 12:16 AM RN QUALITY Narrative [facility] - 10/06/2024 12:46 AM RN QUALITY While on heparin infusion Fatou Schwartz MD LAB BLOOD ORDERABLES Final Res ult NICOLE RAYGOZA [address] [address] Department [place] [address] * Respiratory pathogen panel Nasopharyngeal (10/05/2024 3:21 PM RN QUALITY) Pathologist [facility] Influenza A RNA Not Detected Not Detected CH Influenza B RNA Not Detected Not Detected CERNER RSV RNA Not Detected Not Detected CERNER COVID-19 RNA Not Detected Not Detected [facility] Coronavirus 229E RNA Not Detected Not Detected [facility] Coronavirus HKU1 RNA Not Detected Not Detected [facility] Coronavirus NL63 RNA Not Detected Not Detected [facility] Coronavirus OC43 RNA Not Detected Not Detected [facility] Adenovirus DNA Not Detected Not Detected [facility] Metapneumovirus RNA Not Detected Not Detected [facility] Rhinovirus/Enterov irus RNA Not Detected Not Detected [facility] Parainfluenza 1 RNA Not Detected Not Detected [facility] Parainfluenza 2 RNA Not Detected Not Detected [facility] Parainfluenza 3 RNA Not Detected Not Detected [facility] Parainfluenza 4 RNA Not Detected Not Detected [facility] B. pertussis DNA Not Detected Not Detected [facility] B. parapertussis DNA Not Detected Not Detected [facility] C. pneumoniae DNA Not Detected Not Detected [facility] M. pneumoniae DNA Not Detected Not Detected [facility] Comment: Interpretive Data The [employer] FilmArray Respiratory Panel (RP2.1) assay is a multiplexed real-time PCR based nucleic acid test capable of simultaneous qualitative detection and identification of multiple respiratory viral and bacterial nucleic acids, including SARS Coronavirus 2 (the causative agent of COVID-19). The following bacteria, viruses and virus subtypes can be identified using the FilmArray RP2.1 assay: Bordetella pertussis, Bordetella parapertussis, Chlamydia pneumoniae, Mycoplasma pneumoniae, Adenovirus, SARS Coronavirus 2, seasonal coronaviruses (Coronavirus HKU1, Coronavirus NL63, Coronavirus 229E, and Coronavirus OC43), Influenza A, Influenza A subtype H1, Influenza A subtype H3, Influenza A subtype 2009 H1, Influenza B, Metapneumovirus, Parainfluenza 1, Parainfluenza 2, Parainfluenza 3, Parainfluenza 4, RSV, Rhinovirus/Enterovirus. Due to the genetic similarity between human Rhinovirus and Enterovirus, the FilmArray RP2.1 assay cannot reliably differentiate them. Coronavirus OC43 may cross-react with some isolates of Coronavirus HKU1. A dual positive result may be due to cross-reactivity or may indicate a co- infection. The detection and identification of specific viral and bacterial nucleic acids from individuals exhibiting signs and symptoms of a respiratory infection aids in the diagnosis of respiratory infection if used in conjunction with other clinical and epidemiological information. The results of this test should not be used as the sole basis for diagnosis, treatment, or other management decisions. Negative results in the setting of a respiratory illness may be due to infection with pathogens that are not detected by this test. Positive results do not rule out infection/co-infection with other organisms. The agent(s) detected by the FilmArray RP2.1 may not be the definite cause of disease. Additional testing (lab, imaging, etc.) may be necessary when evaluating a patient with possible respiratory tract infection. The FilmArray RP2.1 assay has FDA clearance for testing of [employer] swabs. The performance characteristics of this assay have been determined by [facility]. Current interpretive data was last revised on 2021. Nasopharyngeal 10/05/2024 3: 21 PM RN QUALITY 10/05/2024 3:46 PM RN QUALITY Narrative NICOLE RAYGOZA - 10/05/2024 5:20 PM RN QUALITY Is the Patient experiencing symptoms consistent with COVID?->Unknown Surveillance testing for transplant patient?->No Carmen Anabela [employer] LAB MICROBIOLOGY - GENERAL ORDER TEVIN Final Result NICOLE RAYGOZA [address] [address] Department [place] [address] * TRANSESOPHAGEAL ECHO (GENEVA) W DOPPLER/CF WO CONTRAST (10/05/2024 2:29 PM RN QUALITY) BSA 2.42 m2 CONS SCIMAGE Anatomical Region Laterality Modality Other Narrative 10/05/2024 3:21 PM RN QUALITY Transesophageal Echocardiogram Date of procedure: 10/05/2024 INDICATIONS: This is a 79 y.o. year old male who has no prior history of sedation or anesthesia problems. A GENEVA has been requested for assessment of aortic stenosis prior to coronary artery bypass grafting. PROCEDURE: After informed consent was obtained, IV sedation was given per anesthesia. The multiplane GENEVA probe was inserted into the patients mouth and passed into the esophagus without difficulty. Standard images were then obtained using 2dmmode, colorflow and doppler. ANESTHESIA: sedation was performed via anesthesia department. COMPLICATIONS: There were no immediate complications. FINDINGS: Overall left ventricular systolic function is normal, estimated EF 55%. Right ventricular size and function are normal. Left atrium normal in appearance. Left atrial appendage well visualized, no thrombus. Right atrium normal in appearance. Interatrial septum demonstrates lipomatous hypertrophy. Agitated saline was injected, very small amount of bubbles were visualized within the left atrium consistent with a small/insignificant PFO. Mitral valve is mildly thickened, mild mitral regurgitation. Tricuspid valve mildly thickened, mild tricuspid regurgitation. Pulmonic valve normal in appearance, trivial pulmonic regurgitation. Aortic valve is trileaflet, with thickening and calcification present of all 3 leaflets. Aortic valve area was planimetered multiple times, with area ranging from 1.1- 1.2 cm2 consistent with moderate aortic stenosis. No aortic regurgitation. Aortic root ascending aorta normal in appearance, descending aorta normal in appearance. Pericardium normal in appearance. Conclusions: -Normal LV function, estimated EF 55%. -Small/insignificant PFO. -Mild mitral regurgitation. -Mild tricuspid regurgitation. -Moderate aortic stenosis GENARO 1.1-1.2 cm2. -Flaca Giles DO, FACC Carmen Peñaloza NP CV ECHO PROCEDURES Final Result * (ABNORMAL) eGFR (10/05/2024 12:55 PM RN QUALITY) eGFR 59(L) >=60 mL/min/1. 73 m2 Comment: Interpretive Data Reference Interval Normal >/= 90 mL/min/1.73m2 Mildly decreased* 60 - 89 mL/min/1.73m2 Mildly to moderately decreased 45 - 59 mL/min/1.73m2 Moderately to severely decreased 30 - 44 mL/min/1.73m2 Severely decreased 15 - 29 mL/min/1.73m2 Kidney Failure < 15 mL/min/1.73m2 *Relative to young adult level Estimated glomerular filtration rate is determined by the 2020 CKD-EPI equation recommended by the National Kidney Foundation (A Unifying Approach to GFR Estimation: Recommendations of the NKF-ASK Task Force on Reassessing the Inclusion of Race in Diagnosing Kidney Disease, JASN 2020). The CKD-EPI equation should not be used for patients with unstable renal function and has not been validated in children and those over 70. Current interpretive data was last reviewed 2021. Blood 10/05/2024 12:5 5 PM RN QUALITY 10/05/2024 1:14 PM RN QUALITY us Flaca Giles DO LAB BLOOD ORDERABLES Kamla chen Result [facility] [id number] [address] Department [place] [address] * Differential, auto (10/05/2024 12:55 PM RN QUALITY) Neutrophil abs 3.5 1.5 - 6.5 K/cumm Imm gran abs 0.0 0.0 - 0.1 K/cumm [facility] Lymphocyte abs 1.3 0.8 - 3.3 K/cumm [facility] Monocyte abs 0.5 0.2 - 0.8 K/cumm [facility] Eosinophil abs 0.2 0.0 - 0.5 K/cumm [facility] Basophil abs 0.1 0.0 - 0.1 K/cumm [facility] Neutrophil pct 62.8 % [facility] Comment: Interpretive Data Percent cell count reference ranges are not reported, since discordance with absolute values may lead to misinterpretation of CBC data. Current Interpretive Data was last revised on 2017. Imm gran pct 0.4 % [facility] Comment: Interpretive Data Percent cell count reference ranges are not reported, since discordance with absolute values may lead to misinterpretation of CBC data. Current Interpretive Data was last revised on 2017. Lymphocyte pct 23.8 % [facility] Comment: Interpretive Data Percent cell count reference ranges are not reported, since discordance with absolute values may lead to misinterpretation of CBC data. Current Interpretive Data was last revised on 2017. Monocyte pct 8.2 % [facility] Comment: Interpretive Data Percent cell count reference ranges are not reported, since discordance with absolute values may lead to misinterpretation of CBC data. Current Interpretive Data was last revised on 2017. Eosinophil pct 3.5 % [facility] Comment: Interpretive Data Percent cell count reference ranges are not reported, since discordance with absolute values may lead to misinterpretation of CBC data. Current Interpretive Data was last revised on 2017. Basophil pct 1.3 % [facility] Comment: Interpretive Data Percent cell count reference ranges are not reported, since discordance with absolute values may lead to misinterpretation of CBC data. Current Interpretive Data was last revised on 2017. Blood 10/05/2024 12:5 5 PM RN QUALITY 10/05/2024 1:14 PM RN QUALITY us Flaca Giles DO LAB BLOOD ORDERABLES Kamla l Result [facility] [address] [address] Department [place] [address] * CBC with auto differential (10/05/2024 12:55 PM RN QUALITY) WBC 5.5 3.8 - 9.9 K/cumm Hgb 14.9 13.0 - 17.5 g/dL [facility] Hct 45.0 38.9 - 50.3 % [facility] Plt 170 150 - 400 K/cumm [facility] MPV 10.3 9.1 - 12.3 fL [facility] RBC 4.97 4.30 - 5.80 M/cumm [facility] MCV 90.5 81.3 - 96.4 fL [facility] MCH 30.0 27.1 - 33.3 pg [facility] MCHC 33.1 32.3 - 35.7 g/dL [facility] RDW CV 13.1 11.1 - 14.9 % [facility] RDW SD 43.0 35.7 - 48.1 fL [facility] NRBC abs 0.00 0.00 - 0.01 K/cumm [facility] Blood 10/05/2024 12:5 5 PM RN QUALITY 10/05/2024 1:14 PM RN QUALITY Flaca Giles LAB BLOOD ORDERABLES Kamla l Result NICOLE RAYGOZA [address] [address] Department [place] [address] * Basic metabolic panel (10/05/2024 12:55 PM RN QUALITY) Sodium 139 135 - 145 mmol/L Potassium, pl 4.2 3.3 - 4.9 mmol/L [facility] Chloride 103 97 - 110 mmol/L [facility] CO2 25 22 - 32 mmol/L [facility] Anion gap 11 2 - 15 mmol/L [facility] BUN 18 6 - 25 mg/dL [facility] Creatinine 1.24 0.80 - 1.30 mg/dL [facility] Glucose 94 70 - 199 mg/dL [facility] Comment: Interpretive Data Fasting glucose >/= 126 mg/dl is diagnostic for diabetes. Fasting is defined as no caloric intake for at least 8 hours. Fasting glucose between 100 mg/dl to 125 mg/dl is diagnostic of prediabetes. In a patient with classic symptoms of hyperglycemia or hyperglycemic crisis, a random glucose >/= 200 mg/dl is diagnostic for diabetes. In the absence of unequivocal hyperglycemia, results should be confirmed by repeat testing. The classification and Diagnosis of Diabetes Diabetes Care 2021; 46: S19-S40. Current interpretive data was last revised 2022. Calcium 9.4 8.5 - 10.3 mg/dL [facility] Blood 10/05/2024 12:5 5 PM RN QUALITY 10/05/2024 1:14 PM RN QUALITY Flaca Giles LAB BLOOD ORDERABLES Kamla l Result NICOLE RAYGOZA [address] [address] Department [place] [address] * (ABNORMAL) aPTT (10/05/2024 3:14 AM RN QUALITY) aPTT 80(H) 28 - 38 sec Comment: Interpretive Data Heparin therapeutic range: 66.0 - 100.0 seconds. Range based on correlation with therapeutic heparin activity range of 0.3 - 0.7 Units/mL. Current interpretive data was last revised on 2023. Blood 10/05/2024 3:14 AM RN QUALITY 10/05/2024 3:56 AM RN QUALITY Fatou Schwartz MD LAB BLOOD ORDERABLES Final Res ult NICOLE RAYGOZA [address] [address] Department [place] [address] * US Carotids Duplex Bilateral (10/04/2024 3:17 PM RN QUALITY) Anatomical Region Laterality Modality Vascular Bilateral Ultrasound 10/04/2024 3:25 PM RN QUALITY Impressions 10/04/2024 3:25 PM RN QUALITY 1. Bilateral internal carotid artery stenosis estimated at less than 50%. 2. There is antegrade flow in both vertebral arteries. Electronically signed by: Jj Grubbs II, D.O. Narrative 10/04/2024 3:25 PM RN QUALITY EXAMINATION: BILATERAL CAROTID DUPLEX EXAM DATE: 10/04/2024 2:15 PM HISTORY: Left Main coronary artery disease. TECHNIQUE: A bilateral carotid duplex imaging evaluation was performed using grayscale, color and spectral images. NASCET-based methodology was used. FINDINGS: On the right, the common carotid artery peak systolic velocity is 92 cm/s. The right internal carotid artery peak systolic velocities are 75 cm/s proximally, 71 cm/s within the midportion, and 65 cm/s distally. The right internal carotid artery to common carotid artery ratio is 0.8. The estimated percent stenosis of the right internal carotid artery is less than 50%. [] On the left, the common carotid artery peak systolic velocity is 92 cm/s. The left internal carotid artery peak systolic velocities are 98 cm/s proximally, 56 cm/s within the midportion, and 51 cm/s distally. The left internal carotid artery to common carotid artery ratio is 1.07. The estimated percent stenosis of the left internal carotid artery is less than 50%. [] Antegrade flow is seen within both vertebral arteries. Procedure Note Jj Grubbs II - 10/04/2024 EXAMINATION: BILATERAL CAROTID DUPLEX EXAM DATE: 10/04/2024 2:15 PM HISTORY: Left Main coronary artery disease. TECHNIQUE: A bilateral carotid duplex imaging evaluation was performed using grayscale, color and spectral images. NASCET-based methodology was used. FINDINGS: On the right, the common carotid artery peak systolic velocity is 92 cm/s. The right internal carotid artery peak systolic velocities are 75 cm/s proximally, 71 cm/s within the midportion, and 65 cm/s distally. The right internal carotid artery to common carotid artery ratio is 0.8. The estimated percent stenosis of the right internal carotid artery is less than 50%. [] On the left, the common carotid artery peak systolic velocity is 92 cm/s. The left internal carotid artery peak systolic velocities are 98 cm/s proximally, 56 cm/s within the midportion, and 51 cm/s distally. The left internal carotid artery to common carotid artery ratio is 1.07. The estimated percent stenosis of the left internal carotid artery is less than 50%. [] Antegrade flow is seen within both vertebral arteries. IMPRESSION: 1. Bilateral internal carotid artery stenosis estimated at less than 50%. 2. There is antegrade flow in both vertebral arteries. Electronically signed by: Jj Grubbs II, D.O. Migdalia Salcedo NP IMG US PROCEDURES Final Re sult * CT Chest WO Contrast (10/04/2024 11:54 AM RN QUALITY) Anatomical Region Laterality Modality Body N/A Computed Tomogra phy 10/04/2024 12:4 6 PM RN QUALITY Impressions 10/04/2024 12:46 PM RN QUALITY 1. Aortic and coronary artery atherosclerosis. 2. Minimal mosaic attenuation in the lingula and bilateral lower lobe suggestive of atelectasis versus interstitial pulmonary edema. Electronically signed by: Jj Grubbs II, D.O. Narrative 10/04/2024 12:46 PM RN QUALITY EXAMINATION: Computed tomography of the chest without intravenous contrast HISTORY: Preoperative evaluation. TECHNIQUE: Transaxial computed tomographic images of the chest were obtained without intravenous contrast according to the standard protocol. COMPARISON: None. FINDINGS: Mild mosaic attenuation in the bilateral lower lobes and lingula may represent atelectasis or mild interstitial pulmonary edema. No definitive pulmonary nodules. Thyroid and thoracic inlet structures are unremarkable. Atherosclerotic calcifications in the aorta and coronary arteries. No pericardial effusion. Subcentimeter probable hemorrhagic cyst in the left kidney. No acute osseous abnormality. No suspicious lytic or sclerotic lesions. Procedure Note Jj Grubbs II, DO - 10/04/2024 EXAMINATION: Computed tomography of the chest without intravenous contrast HISTORY: Preoperative evaluation. TECHNIQUE: Transaxial computed tomographic images of the chest were obtained without intravenous contrast according to the standard protocol. COMPARISON: None. FINDINGS: Mild mosaic attenuation in the bilateral lower lobes and lingula may represent atelectasis or mild interstitial pulmonary edema. No definitive pulmonary nodules. Thyroid and thoracic inlet structures are unremarkable. Atherosclerotic calcifications in the aorta and coronary arteries. No pericardial effusion. Subcentimeter probable hemorrhagic cyst in the left kidney. No acute osseous abnormality. No suspicious lytic or sclerotic lesions. IMPRESSION: 1. Aortic and coronary artery atherosclerosis. 2. Minimal mosaic attenuation in the lingula and bilateral lower lobe suggestive of atelectasis versus interstitial pulmonary edema. Electronically signed by: Jj Grubbs II, D.O. Migdalia Salcedo NP IMG CT PROCEDURES Final Re sult * (ABNORMAL) aPTT (10/04/2024 10:20 AM RN QUALITY) aPTT 68(H) 28 - 38 sec Comment: Interpretive Data Heparin therapeutic range: 66.0 - 100.0 seconds. Range based on correlation with therapeutic heparin activity range of 0.3 - 0.7 Units/mL. Current interpretive data was last revised on 2023. Blood 10/04/2024 10:2 0 AM RN QUALITY 10/04/2024 10:36 AM RN QUALITY us Fatou Schwartz MD LAB BLOOD ORDERABLES Final Res ult NICOLE [address] [address] [place] [place] [address] * X-ray chest 1 view (Portable) (10/04/2024 6:29 AM RN QUALITY) Anatomical Region Laterality Modality Body, Chest N/A Computed Radiogr aphy 10/04/2024 8:40 AM RN QUALITY Impressions 10/04/2024 8:40 AM RN QUALITY No active disease. Electronically signed by: Elena Bower M.D. Narrative 10/04/2024 8:40 AM RN QUALITY EXAMINATION: XR CHEST 1 VIEW HISTORY: The patient is a 79-year-old male who presents with shortness of breath. TECHNIQUE: AP portable view of the chest. FINDINGS: Allowing for the lordotic projection, the lungs are clear. Cardiovascular structures unremarkable. Procedure Note Elena Bower MD - 10/04/2024 EXAMINATION: XR CHEST 1 VIEW HISTORY: The patient is a 79-year-old male who presents with shortness of breath. TECHNIQUE: AP portable view of the chest. FINDINGS: Allowing for the lordotic projection, the lungs are clear. Cardiovascular structures unremarkable. IMPRESSION: No active disease. Electronically signed by: Elena Bower M.D. us Fatou Schwartz MD IMG XR PROCEDURES Final Result * (ABNORMAL) aPTT (10/04/2024 4:25 AM RN QUALITY) aPTT 72(H) 28 - 38 sec Comment: Interpretive Data Heparin therapeutic range: 66.0 - 100.0 seconds. Range based on correlation with therapeutic heparin activity range of 0.3 - 0.7 Units/mL. Current interpretive data was last revised on 2023. Blood 10/04/2024 4:25 AM RN QUALITY 10/04/2024 4:30 AM RN QUALITY us Fatou Schwartz MD LAB BLOOD ORDERABLES Final Res ult [facility] [address] [address] Department [place] [address] * eGFR (10/03/2024 9:56 PM RN QUALITY) eGFR 64 >=60 mL/min/1. 73 m2 Comment: Interpretive Data Reference Interval Normal >/= 90 mL/min/1.73m2 Mildly decreased* 60 - 89 mL/min/1.73m2 Mildly to moderately decreased 45 - 59 mL/min/1.73m2 Moderately to severely decreased 30 - 44 mL/min/1.73m2 Severely decreased 15 - 29 mL/min/1.73m2 Kidney Failure < 15 mL/min/1.73m2 *Relative to young adult level Estimated glomerular filtration rate is determined by the 2020 CKD-EPI equation recommended by the National Kidney Foundation (A Unifying Approach to GFR Estimation: Recommendations of the NKF-ASK Task Force on Reassessing the Inclusion of Race in Diagnosing Kidney Disease, JASN 2020). The CKD-EPI equation should not be used for patients with unstable renal function and has not been validated in children and those over 70. Current interpretive data was last reviewed 2021. Blood 10/03/2024 9:56 PM RN QUALITY 10/03/2024 10:01 PM RN QUALITY Fatou Schwartz MD LAB BLOOD ORDERABLES Final Res ult Performing Organization Address [facility] Co de Phone Number NICOLE RAYGOZA [phone] [address] [place] [address] * aPTT (10/03/2024 9:56 PM RN QUALITY) aPTT 34 28 - 38 sec Comment: Interpretive Data Heparin therapeutic range: 66.0 - 100.0 seconds. Range based on correlation with therapeutic heparin activity range of 0.3 - 0.7 Units/mL. Current interpretive data was last revised on 2023. Blood 10/03/2024 9:56 PM RN QUALITY 10/03/2024 10:01 PM RN QUALITY Fatou Schwartz MD LAB [place]LOOD [place] [address] [address] [place] [address] * Protime-INR (10/03/2024 9:56 PM RN QUALITY) PT 11.9 9.7 - 13.0 sec INR 1.10 0.90 - 1.20 [facility] Comment: Interpretive data Oral anticoagulant therapeutic ranges: Venous thromboembolism prophylaxis or treatment: 2.0-3.0 CARDIOLOGY Standard range: 2.0-3.0 High-intensity range: 2.5-3.5 Refer to indication-specific guidelines for appropriate target ranges for prosthetic heart valve replacement. Current interpretive data was last revised on 2019. Blood 10/03/2024 9:56 PM RN QUALITY 10/03/2024 10:01 PM RN QUALITY us Fatou Schwartz MD LAB BLOOD ORDERABLES Final Res ult [facility] [address] [address] Department [place] [address] * CBC without differential (10/03/2024 9:56 PM RN QUALITY) Pathologist [facility] WBC 6.2 3.8 - 9.9 K/cumm Hgb 14.4 13.0 - 17.5 g/dL [facility] Hct 42.4 38.9 - 50.3 % [facility] Plt 182 150 - 400 K/cumm [facility] MPV 10.1 9.1 - 12.3 fL [facility] RBC 4.75 4.30 - 5.80 M/cumm [facility] MCV 89.3 81.3 - 96.4 fL [facility] MCH 30.3 27.1 - 33.3 pg [facility] MCHC 34.0 32.3 - 35.7 g/dL [facility] RDW CV 13.0 11.1 - 14.9 % [facility] RDW SD 42.5 35.7 - 48.1 fL [facility] NRBC abs 0.00 0.00 - 0.01 K/cumm [facility] Blood 10/03/2024 9:56 PM RN QUALITY 10/03/2024 10:01 PM RN QUALITY Fatou Schwartz MD LAB BLOOD ORDERABLES Final Res ult Performing Organization Address City/[facility]/ZIP Co de Phone Number LORINACE [phone] [address] [facility] [place] [address] * Magnesium (10/03/2024 9:56 PM RN QUALITY) Magnesium 1.9 1.4 - 2.5 mg/dL Blood 10/03/2024 9:56 PM RN QUALITY 10/03/2024 10:01 PM RN QUALITY Fatou Schwartz MD LAB BLOOD ORDERABLES Final Res ult Performing Organization Address [facility] de Phone Number NICOLE [phone] [address] [facility] [place] [address] * (ABNORMAL) Hemoglobin A1c (10/03/2024 9:56 PM RN QUALITY) Pathologist [facility] Hgb A1C 5.8(H) 4.0 - 5.6 % Estimated Average Glucose 120 mg/dL NICOLE Comment: The ADA recommends reporting an estimated Average Glucose (eAG) with all Hemoglobin A1c results using the equation derived from a study of 507 normal and diabetic adults. Minority populations were underrepresented and children were not included. (Diabetes Care 31:2248-9557, 2008). The eAG is not equivalent to a fasting glucose. Blood 10/03/2024 9:56 PM RN QUALITY 10/04/2024 10:36 AM RN QUALITY Migdalia Salcedo NP LAB BLOOD ORDERABLES Final Result Performing Organization Address City/[facility]/ZIP Co de Phone Number LORINACE RAYGOZA [address] [address] [facility] [place] [address] * Comprehensive metabolic panel (10/03/2024 9:56 PM RN QUALITY) Sodium 138 135 - 145 mmol/L Potassium, pl 4.0 3.3 - 4.9 mmol/L [facility] Chloride 102 97 - 110 mmol/L [facility] CO2 26 22 - 32 mmol/L [facility] Anion gap 10 2 - 15 mmol/L [facility] BUN 15 6 - 25 mg/dL [facility] Creatinine 1.15 0.80 - 1.30 mg/dL [facility] Glucose 95 70 - 199 mg/dL [facility] Comment: Interpretive Data Fasting glucose >/= 126 mg/dl is diagnostic for diabetes. Fasting is defined as no caloric intake for at least 8 hours. Fasting glucose between 100 mg/dl to 125 mg/dl is diagnostic of prediabetes. In a patient with classic symptoms of hyperglycemia or hyperglycemic crisis, a random glucose >/= 200 mg/dl is diagnostic for diabetes. In the absence of unequivocal hyperglycemia, results should be confirmed by repeat testing. The classification and Diagnosis of Diabetes Diabetes Care 202; 46: S19-S40. Current interpretive data was last revised 2022. Calcium 9.3 8.5 - 10.3 mg/dL [facility] Bilirubin, total 0.6 0.1 - 1.2 mg/dL [facility] Protein, pl 6.7 6.5 - 8.5 g/dL [facility] Albumin 4.1 3.5 - 5.0 g/dL [facility] Alk phos 82 40 - 130 Units/L [facility] ALT 16 7 - 55 Units/L [facility] AST 21 10 - 50 Units/L [facility] Blood 10/03/2024 9:56 PM RN QUALITY 10/03/2024 10:01 PM RN QUALITY us Fatou Schwartz MD LAB BLOOD ORDERABLES Final Res ult [facility] [address] [address] Department [place] [address] * (ABNORMAL) Urinalysis reflex to microscopic and culture Urine, clean voided (10/03/2024 9:22 PM RN QUALITY) Color, ur Yellow Yellow Clarity, ur Clear Clear [facility] Specific gravity, ur 1.016 1.003 - 1.030 [facility] pH, urine 6.5 [facility] Comment: Interpretive Data U rine pH is affected by diet, medications, systemic acid-base disturbances, and renal tubular function. pH may affect urinary stone formation. For example, urine pH below 6.0 may help reduce the tendency for calcium phosphate stones and pH greater than 6.0 may reduce the tendency for uric acid stone formation. Source: [facility] Current Interpretive Data was last revised on 2017 Protein, ur ql Negative Negative [facility] Glucose, ur ql Negative Negative [facility] Ketones, ur Negative Negative [facility] Bilirubin, ur Negative Negative [facility] Blood, ur Negative Negative [facility] Urobilinogen, ur <2.0 <2.0 mg/dL [facility] Nitrite, ur Positive(A) Negative [facility] Leukocyte esterase, ur 3+(A) Negative [facility] UA reflex comment Reflex to microscopic UA will be performed. [facility] Urine, clean voided 10/03/2024 9:22 PM RN QUALITY 10/03/2024 9:30 PM RN QUALITY Fatou Schwartz MD LAB MICROBIOLOGY - GENERAL ORD ERABLES Final Result Performing Organization Address [facility] Co de Phone Number LORINACE RAYGOZA [address] [address] [place] [address] * (ABNORMAL) Urinalysis, microscopic only (10/03/2024 9:22 PM RN QUALITY) WBC, ur 11-20(A) 0 - 5 /HPF RBC, ur 0-2 0 - 2 /HPF [facility] Bacteria, ur Trace(A) [facility] Culture Reflex Comment Reflex to urine culture will be performed. [facility] Urine, clean voided 10/03/2024 9:22 PM RN QUALITY 10/03/2024 9:30 PM RN QUALITY Fatou Schwartz MD LAB URINE ORDERABLES Final Res ult Performing Organization Address [facility] Co de Phone Number NICOLE RAYGOZA [phone] [address] [facility] [place] [address] * (ABNORMAL) Urine culture Urine, clean voided (10/03/2024 9:22 PM RN QUALITY) Report Final Report: Greater than or equal to 100,000 colonies/mL of Enterobacter aerogenes (.) Comment:Testing performed by : [facility], [address] [facility], [place]., [address] Organism ENTEROBACTER AEROGENES NICOLE RAYGOZA Urine, clean voided 10/03/2024 9:22 PM RN QUALITY 10/04/2024 12:20 AM RN QUALITY Narrative NICOLE RAYGOZA - 10/06/2024 6:22 AM RN QUALITY Urine culture reflexed based upon urinalysis results. Testing performed by [facility] ([phone]) Organism Antibiotic Method Susceptibility Klebsiella (Enterobacter) aerogenes Ampicillin INTERPRETATION Resistant Klebsiella (Enterobacter) aerogenes Cefazolin INTERPRETATION Resistant Klebsiella (Enterobacter) aerogenes Nitrofurantoin INTERPRETATION Susceptible Klebsiella (Enterobacter) aerogenes Gentamicin INTERPRETATION Susceptible Klebsiella (Enterobacter) aerogenes Trimethoprim with Sulfamethoxazole INTERPRETATION Susceptible Klebsiella (Enterobacter) aerogenes Meropenem INTERPRETATION Susceptible Klebsiella (Enterobacter) aerogenes Cefepime INTERPRETATION Susceptible Klebsiella (Enterobacter) aerogenes Ciprofloxacin INTERPRETATION Susceptible Klebsiella (Enterobacter) aerogenes Ceftazidime INTERPRETATION Resistant Klebsiella (Enterobacter) aerogenes Ceftriaxone INTERPRETATION Resistant Klebsiella (Enterobacter) aerogenes Piperacillin/Tazobactam INTERPRETATION Resistant Fatou Schwartz MD LAB MICROBIOLOGY - GENERAL ORD ERABLES Final Result NICOLE [address] [address] Department [place] [address] * Cardiology Document Scan (10/03/2024 4:14 PM RN QUALITY) Anatomical Region Laterality Modality Other Sherley Herring NP CV [employer]ARDIAC SERVICES PROCEDUR ES Final Result * Cardiology Document Scan (10/02/2024 4:12 PM RN QUALITY) Anatomical Region Laterality Modality Other Sherley Herring NP CV CARDIAC SERVICES PROCEDUR ES Final Result from Last [address] [facility] MEDICARE ADVANTAGE [facility] MEDICARE ADVANTAGE Advance Directives For more information, please contact: [phone] * Full Code (Latest Code Status on File) Date Activated Date Inactivated Comments 10/03/2024 8:28 PM 10/21/2024 4:34 PM Care Teams Event Specialist Food Demonstrator Relationship Specialty Start Date End Date Jj Collins NP [address] [place] [address] PCP - General Nurse Practitioner 10/02/24
--- OUTSIDE RECORDS SUMMARY | 2024-11-29 10:50 | XMS_ITS | Clinical Summary ---
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 Indications: coronary artery disease Active amiodarone (PACERONE) 400 mg tablet Take 1 tablet (400 mg total) by mouth daily 30 tablet 5 025 Discontin ued(Thera py completed [...] pacemaker in situ 10/30/2024 Overview (10/30/2024): Medtronic Eulalia Dual Pacemaker. Dx; Tachy/Thomas, Afib, Pauses. DOI 10/13/2024- Abilio. Carelink remote. Dark stools 10/16/2024 Coronary artery disease invo lving sokaogon coronary artery of sokaogon heart without angina pectoris 10/06/2024 CAD in sokaogon artery 10/03/2024 Aortic valve stenosis 10/03/2024 Encounters Date Type Department Care Team Description 5 3:00 PM CDT Home Care Visit [facility] [address] [place] [address] Tamara Key RN SN OASIS DISCHARGE 5 11:30 AM CDT Office Visit [facility] [address] [facility] [address] [place] [address] Reina Duffy NP S/P AVR (aortic valve replacement) (Primary Dx); Coronary artery disease involving sokaogon coronary artery of sokaogon heart without angina pectoris; Nonrheumatic aortic valve stenosis 5 8:30 AM CDT Ancillary Procedure [facility] Card[facility] [address] [facility] [address] [place] [phone] Cardiac pacemaker in situ; Atrial fibrillation, unspecified type (HCC); Bradycardia; Tachy-thomas syndrome (HCC) 5 Telephone [facility] Cardiology [address] [place] [address] [address] [place] [phone] Lakeshia Aviles NP 5 1:00 PM CDT Home Care Visit [address] [place] [address] Tamara Key RN SN HOME VISIT 5 Telephone [facility] Cardiology [address] [facility] [address] [place] [phone] Remberto Cerda MD 5 11:00 AM CDT Home Care Visit [address] [place] [address] Tamara Key RN SN HOME VISIT 5 1:00 PM CDT Home Care Visit [address] [place] [address] Tamara Key RN SN HOME VISIT 5 12:00 PM CDT Home Care Visit [address] [place] [address] Tamara Sandoval LPN SN HOME VISIT 5 12:00 PM CDT Home Care Visit [address] [place] [address] Tamara Key RN SN HOME VISIT 5 Orders Only [facility] Cardiology [address] [facility] [address] [place] [address] [place] [phone] Remberto Cerda MD Cardiac pacemaker in situ (Primary Dx); Atrial fibrillation, unspecified type (HCC); Bradycardia; Tachy-thomas syndrome (HCC) 5 Orders Only [place] Manager Stylist [address] [facility] [address] [place] [phone] Monet Vo MA Sinus bradycardia (Primary Dx); Cardiac pacemaker in situ 5 10:34 AM CDT - 5 11:59 PM CDT Hospital Encounter [facility] [address] [place] [address] Discharge Disposition: Discharge to home or self care 5 10:00 AM CDT Home Care Visit [address] [place] [address] Tamara Key RN SN HOME VISIT 5 Home Care Visit [address] [place] [address] Tamara Key RN CARE CONFERENCE 5 Telephone Cardiology Flaca Giles DO 5 Orders Only [facility] [address] [facility] [address] [place] [phone] Reina Duffy NP 5 1:30 PM CDT Home Care Visit [address] [place] [address] Imani Mcgowan SN OASIS START OF CARE 5 Plan of Care Documentation [place] [address] [address] [place] [address] 5 Telephone [facility] [address] [place] [address] Ravin Branham MA 5 2:31 PM SPRINKLER DRIVER Anesthesia Event [facility] Electrophysiology Lab [address] [place] [address] [phone] Royal Sun MD Eldin, Ali S., MD 5 1:30 PM SPRINKLER DRIVER - 5 3:35 PM SPRINKLER DRIVER Surgery [facility]rophysiology [facility] [address] [place] [address] [phone] Teresa Knox MD INSERT/REPLACE DUAL LEAD PACEMAKER (PPM) OR IMPLANTABLE CARDIOVERTER-DEFIBRI LLATOR (ICD) ELECTRODE WO GENERATOR CHANGE [id number] 5 Orders Only [facility] Cardiology [address] [place] [phone] Nevaeh Sherley Toshia, MARY 5 8:04 AM SPRINKLER DRIVER Anesthesia Event [facility] Operating Room [address] [place] [address] Williams Carrillo MD [place], [facility], AA 5 8:00 AM SPRINKLER DRIVER - 5 1:30 PM SPRINKLER DRIVER Surgery [facility] Operating Room [address] [place] [address] Guillermo Mayes MD CORONARY ARTERY BYPASS GRAFT X 3 - INTERNAL MAMMARY/SAPHENOUS VEIN GRAFT - LEG 5 2:00 PM SPRINKLER DRIVER - 5 2:30 PM SPRINKLER DRIVER Surgery [facility] GI Lab [address] [place] [phone] Flaca Giles DO TRANSESOPHAGEAL ECHOCARDIOGRAM 5 1:55 PM SPRINKLER DRIVER Anesthesia Event [facility] GI Lab [address] [place] [address] Royal Sun MD O'Brien, Daniel Robert, AA 5 7:35 PM SPRINKLER DRIVER - 5 12:34 PM CDT Hospital Encounter [address] [address] Fatou Schwartz MD Munfakh, Nabil A., MD Aortic valve stenosis, etiology of cardiac valve disease unspecified (Primary Dx); Coronary artery disease involving sokaogon coronary artery of sokaogon heart without angina pectoris; Nonrheumatic aortic valve stenosis; Dark stools Discharge Disposition: Discharge to home, home health skilled care from Last 3 Months Surgical History Surgery Date Site/Laterality Comments OTHER SURGICAL HISTORY 10/05/2024 [facility] SCROTAL / TESTICULAR CARDIAC ELECTROPHYSIOLOGY PROCEDURE 10/13/2024 Chest/N/A Procedure: INSERT/REPLACE DUAL LEAD PACEMAKER (PPM) OR IMPLANTABLE CARDIOVERTER-DEFIBRILLATOR (ICD) ELECTRODE WO GENERATOR CHANGE [id number]; Surgeon: Teresa Knox MD; Location: EP LAB; Service: Cardiovascular; Laterality: N/A; Medical devices from this surgery are in the Medical Devices section. Medical History Medical History Date Comments Hypothyroidism Hyperlipidemia Hypertension Coronary artery disease Myocardial infarction (HCC) NSTE MS CKD (chronic kidney disease) Aortic stenosis Social History Tobacco Use Types Packs/Day Years [...] materials from doctor or pharmacy Never 11/17/2024 [facility] Utilities Answer Date Recorded In the past 12 months has [facility] Re[employer]er, oil, or water Bulbstorm threatened to shut off services in your [...] week 10/05/2024 How often do you attend [facility] or yazidism services? Never 10/05/2024 Do you belong to any clubs o r organizations such as mandaeism groups, unions, fraternal or athletic groups, or [...] money to buy more. Never true 10/05/19 Within the past 12 months, t he [...] any time in the past 12 m [facility], were you homeless or living in a snf (including now)? No 10/05/2024 Personal Safety Answer Date Recorded Have you ever been in or are you currently in a harmful physical or emotional relationship or is someone making you feel afraid or unsafe? Denies 10/03/2024 Sex and Gender Information Value Date Recorded Sex Assigned at Not on file Legal Sex Male 1:53 PM SPRINKLER DRIVER Gender Identity Not on file Sexual Orientation Not on file Obstetrics History Last Filed Vital Signs Vital Sign Reading [...] 11/16/2024 11:45 AM CDT Plan of Treatment Health Maintenance Due Date Last Done Comments Depression Screening 1944 DTaP/Tdap/Td Vaccine (1 - Tdap) 1955 Hepatitis B Screening 1962 Pneumococcal vaccine 65+ (1 of 1 - PCV) 1994 Zoster Vaccine (1 of 2) 1994 Well Visit 65+ 2009 Influenza Vaccine (Season Ended) 2025 Fall Risk Assessment 10/21/2025 10/21/2024 Medical Devices Implanted Type Area Material Flow Engineer Device Identifier Shelf Expiration Date Model / Serial / Lot Medtronic Inc [place] S Mri Surescan 50.8x46.6mm 2 Chamber 7.4mm Pacemaker 22.5gm [id number] - [id number] - [id number] Implanted:Qty: 1 on 10/13/2024 by Teresa Knox MD at [facility] Pacemaker Left: Chest Wall Medtronic Inc 07/06/2025 [id number] / [id number] / [employer] Valve Coronary Aortic Tissue Bioprosthesis Intuity Elite 25mm [id number] - [id number] - [id number] Implanted:Qty: 1 on 10/09/2024 by Guillermo Mayes MD at [facility] Prosthetic Valve N/A: Heart [employer] 03/02/2025 [id number] / [id number] / Medtronic Inc Capsurefix Novus 6.2fr 2mm 58cm Bipolar Screw In Implantable 5076-58 - [id number] - [id number] Implanted:Qty: 1 on 10/13/2024 by Teresa Knox MD at [facility] Left: Chest Medtronic Inc 07/10/2026 [id number] / [id number] / Medtronic Inc Capsurefix Novus 6.2fr 2mm 45cm Bipolar Screw In Implantable 5076-45 - [id number] - [id number] Implanted:Qty: 1 on 10/13/2024 by Teresa Knox MD at [facility] Left: Chest Medtronic Inc [id number] 03/24/2026 5076-45 / [id number] 1V / Medtronic Inc Tyrx Absorbable Antibacterial Envelope Med 2.7x2.5in [id number] - [id number] Implanted:Qty: 1 on 10/13/2024 by Teresa Knox MD at [facility] Left: Chest Medtronic Inc 06/29/2025 [id number] / / [id number] Procedures Procedure Name Priority Date/Time Associated Diagnosis Comments DEVICE CHECK - IN OFFICE Routine 11/15/2024 8:03 AM CDT Cardiac pacemaker in situ Atrial fibrillation, unspecified type (HCC) Bradycardia Tachy-htomas syndrome (HCC) EGFR Routine 10/25/2024 10:34 AM [...] CDT ECG 12-LEAD Routine 10/15/2024 1:15 AM SPRINKLER DRIVER POCT GLUCOSE DEVICE Routine 10/14/2024 8 :35 PM SPRINKLER DRIVER TRANSTHORACIC ECHO (TTE) COMPLETE W DOPPLER/CF WO CONTRAST Routine 10/14/2024 9:52 AM SPRINKLER DRIVER POCT GLUCOSE DEVICE Routine 10/14/2024 7 :57 AM SPRINKLER DRIVER XR CHEST 1 VIEW IP Routine 10/14/2024 6:00 AM SPRINKLER DRIVER EGFR Routine 10/14/2024 5:20 AM SPRINKLER DRIVER MAGNESIUM Routine 10/14/2024 5:20 AM SPRINKLER DRIVER CBC WITHOUT DIFFERENTIAL Routine 10/14/2024 5:20 AM SPRINKLER DRIVER BASIC METABOLIC PANEL Routine 10/14/2024 5:20 AM SPRINKLER DRIVER POCT GLUCOSE DEVICE Routine 10/13/2024 8 :21 PM SPRINKLER DRIVER POCT GLUCOSE DEVICE Routine 10/13/2024 5 :27 PM SPRINKLER DRIVER XR CHEST 1 VIEW IP Routine 10/13/2024 4:35 PM SPRINKLER DRIVER ICD LEAD DUAL 2 LEADS PPM OR ICD Routine 10/13/2024 3:51 PM SPRINKLER DRIVER Aortic valve stenosis, etiology of cardiac valve disease unspecified Coronary artery disease involving sokaogon coronary artery of sokaogon heart without angina pectoris POCT GLUCOSE DEVICE Routine 10/13/2024 12:45 PM SPRINKLER DRIVER ECG 12-LEAD STAT 10/13/2024 11:59 AM SPRINKLER DRIVER ECG 12-LEAD STAT 10/13/2024 9:36 AM SPRINKLER DRIVER POCT GLUCOSE DEVICE Routine 10/13/2024 7 :56 AM SPRINKLER DRIVER XR CHEST 1 VIEW IP Routine 10/13/2024 6:24 AM SPRINKLER DRIVER EGFR Routine 10/13/2024 5:50 AM SPRINKLER DRIVER PROTIME-INR Routine 10/13/2024 5:50 AM SPRINKLER DRIVER APTT Routine 10/13/2024 5:50 AM SPRINKLER DRIVER MAGNESIUM Routine 10/13/2024 5:50 AM SPRINKLER DRIVER CBC WITHOUT DIFFERENTIAL Routine 10/13/2024 5:50 AM SPRINKLER DRIVER BASIC METABOLIC PANEL Routine 10/13/2024 5:50 AM SPRINKLER DRIVER ECG 12-LEAD Routine 10/12/2024 10:08 PM SPRINKLER DRIVER POCT GLUCOSE DEVICE Routine 10/12/2024 9 :59 PM SPRINKLER DRIVER POCT GLUCOSE DEVICE Routine 10/12/2024 9 :27 PM SPRINKLER DRIVER POCT GLUCOSE DEVICE Routine 10/12/2024 5 :44 PM SPRINKLER DRIVER POCT GLUCOSE DEVICE Routine 10/12/2024 1 :00 PM SPRINKLER DRIVER ECG 12-LEAD Routine 10/12/2024 10:04 AM SPRINKLER DRIVER POCT GLUCOSE DEVICE Routine 10/12/2024 7 :53 AM SPRINKLER DRIVER XR CHEST 1 VIEW IP Routine 10/12/2024 6:11 AM SPRINKLER DRIVER EGFR Routine 10/12/2024 4:30 AM SPRINKLER DRIVER MAGNESIUM Routine 10/12/2024 4:30 AM SPRINKLER DRIVER CBC WITHOUT DIFFERENTIAL Routine 10/12/2024 4:30 AM SPRINKLER DRIVER BASIC METABOLIC PANEL Routine 10/12/2024 4:30 AM SPRINKLER DRIVER POCT GLUCOSE DEVICE Routine 10/11/2024 8 :46 PM SPRINKLER DRIVER POCT GLUCOSE DEVICE Routine 10/11/2024 5 :13 PM SPRINKLER DRIVER POCT GLUCOSE DEVICE Routine 10/11/2024 12:12 PM SPRINKLER DRIVER POCT GLUCOSE DEVICE Routine 10/11/2024 8 :24 AM SPRINKLER DRIVER CRITICAL CARE Routine 10/11/2024 6:32 AM SPRINKLER DRIVER Coronary artery disease involving sokaogon coronary artery of sokaogon heart without angina pectoris XR CHEST 1 VIEW IP Routine 10/11/2024 5:59 AM SPRINKLER DRIVER OXYHEMOGLOBIN, PULMONARY ARTERY Routine 10/11/2024 5:30 AM SPRINKLER DRIVER EGFR Routine 10/11/2024 5:22 AM SPRINKLER DRIVER CALCIUM,IONIZED, WHOLE BLOOD Routine 10/11/2024 5:22 AM SPRINKLER DRIVER MAGNESIUM Routine 10/11/2024 5:22 AM SPRINKLER DRIVER CBC WITHOUT DIFFERENTIAL Routine 10/11/2024 5:22 AM SPRINKLER DRIVER BASIC METABOLIC PANEL Routine 10/11/2024 5:22 AM SPRINKLER DRIVER PHOSPHORUS Routine 10/11/2024 5:22 AM SPRINKLER DRIVER POCT GLUCOSE DEVICE Routine 10/11/2024 5 :20 AM SPRINKLER DRIVER POCT GLUCOSE DEVICE Routine 10/11/2024 4 :26 AM SPRINKLER DRIVER POCT GLUCOSE DEVICE Routine 10/11/2024 3 :23 AM SPRINKLER DRIVER POCT GLUCOSE DEVICE Routine 10/11/2024 2 :26 AM SPRINKLER DRIVER POCT GLUCOSE DEVICE Routine 10/11/2024 1 :28 AM SPRINKLER DRIVER POCT GLUCOSE DEVICE Routine 10/11/2024 12:27 AM SPRINKLER DRIVER POCT GLUCOSE DEVICE Routine 10/10/2024 11:26 PM SPRINKLER DRIVER POCT GLUCOSE DEVICE Routine 10/10/2024 10:27 PM SPRINKLER DRIVER POCT GLUCOSE DEVICE Routine 10/10/2024 9 :26 PM SPRINKLER DRIVER CRITICAL CARE Routine 10/10/2024 7:59 PM SPRINKLER DRIVER Aortic valve stenosis, etiology of cardiac valve disease unspecified POCT GLUCOSE DEVICE Routine 10/10/2024 7 :12 PM SPRINKLER DRIVER POCT GLUCOSE DEVICE Routine 10/10/2024 6 :06 PM SPRINKLER DRIVER POCT GLUCOSE DEVICE Routine 10/10/2024 5 :02 PM SPRINKLER DRIVER POCT GLUCOSE DEVICE Routine 10/10/2024 4 :06 PM SPRINKLER DRIVER POCT GLUCOSE DEVICE Routine 10/10/2024 3 :02 PM SPRINKLER DRIVER POCT GLUCOSE DEVICE Routine 10/10/2024 1 :58 PM SPRINKLER DRIVER EGFR Routine 10/10/2024 1:54 PM SPRINKLER DRIVER DIFFERENTIAL AUTO Routine 10/10/2024 1:5 4 PM SPRINKLER DRIVER CALCIUM,IONIZED, WHOLE BLOOD Routine 10/10/2024 1:54 PM SPRINKLER DRIVER MAGNESIUM Routine 10/10/2024 1:54 PM SPRINKLER DRIVER BASIC METABOLIC PANEL Routine 10/10/2024 1:54 PM SPRINKLER DRIVER CBC WITH AUTO DIFFERENTIAL Routine 10/10/2024 1:54 PM SPRINKLER DRIVER POCT GLUCOSE DEVICE Routine 10/10/2024 12:58 PM SPRINKLER DRIVER URINALYSIS AND REFLEX TO MICROSCOPIC STAT 10/10/2024 12:27 PM SPRINKLER DRIVER POCT GLUCOSE DEVICE Routine 10/10/2024 11:53 AM SPRINKLER DRIVER POCT GLUCOSE DEVICE Routine 10/10/2024 10:48 AM SPRINKLER DRIVER POCT GLUCOSE DEVICE Routine 10/10/2024 9 :48 AM SPRINKLER DRIVER POCT GLUCOSE DEVICE Routine 10/10/2024 8 :16 AM SPRINKLER DRIVER ECG 12-LEAD STAT 10/10/2024 7:57 AM SPRINKLER DRIVER EXTUBATION Routine 10/10/2024 7:12 AM SPRINKLER DRIVER BLOOD GAS, ARTERIAL STAT 10/10/2024 6 :52 AM SPRINKLER DRIVER CRITICAL CARE Routine 10/10/2024 6:41 AM SPRINKLER DRIVER Aortic valve stenosis, etiology of cardiac valve disease unspecified Coronary artery disease involving sokaogon coronary artery of sokaogon heart without angina pectoris Nonrheumatic aortic valve stenosis POCT GLUCOSE DEVICE Routine 10/10/2024 6 :10 AM SPRINKLER DRIVER XR CHEST 1 VIEW IP Routine 10/10/2024 5:55 AM SPRINKLER DRIVER POCT GLUCOSE DEVICE Routine 10/10/2024 5 :15 AM SPRINKLER DRIVER OXYHEMOGLOBIN, PULMONARY ARTERY Routine 10/10/2024 2:34 AM SPRINKLER DRIVER EGFR Routine 10/10/2024 2:27 AM SPRINKLER DRIVER DIFFERENTIAL AUTO Routine 10/10/2024 2:2 7 AM SPRINKLER DRIVER HEPATIC FUNCTION PANEL Routine 2:27 AM SPRINKLER DRIVER VITAMIN D 25 HYDROXY Routine 10/10/2024 2:27 AM SPRINKLER DRIVER LIPID PANEL Routine 10/10/2024 2:27 AM SPRINKLER DRIVER THYROID FUNCTION CASCADE Routine 10/10/2024 2:27 AM SPRINKLER DRIVER PHOSPHORUS Routine 10/10/2024 2:27 AM SPRINKLER DRIVER MAGNESIUM Routine 10/10/2024 2:27 AM SPRINKLER DRIVER BASIC METABOLIC PANEL Routine 10/10/2024 2:27 AM SPRINKLER DRIVER CBC WITH AUTO DIFFERENTIAL Routine 10/10/2024 2:27 AM SPRINKLER DRIVER CALCIUM,IONIZED, WHOLE BLOOD Routine 10/10/2024 2:21 AM SPRINKLER DRIVER BLOOD GAS, ARTERIAL Routine 10/10/2024 2 :21 AM SPRINKLER DRIVER POCT GLUCOSE DEVICE Routine 10/09/2024 11:11 PM SPRINKLER DRIVER BLOOD GAS, ARTERIAL Timed 10/09/2024 9 :50 PM SPRINKLER DRIVER CRITICAL CARE Routine 10/09/2024 8:31 PM SPRINKLER DRIVER Aortic valve stenosis, etiology of cardiac valve disease unspecified EGFR STAT 10/09/2024 8:23 PM SPRINKLER DRIVER DIFFERENTIAL AUTO STAT 10/09/2024 8:2 3 PM SPRINKLER DRIVER BLOOD GAS, ARTERIAL STAT 10/09/2024 8 :23 PM SPRINKLER DRIVER BASIC METABOLIC PANEL STAT 10/09/2024 8:23 PM SPRINKLER DRIVER FIBRINOGEN STAT 10/09/2024 8:23 PM SPRINKLER DRIVER PROTIME-INR STAT 10/09/2024 8:23 PM SPRINKLER DRIVER MAGNESIUM Routine 10/09/2024 8:23 PM SPRINKLER DRIVER CALCIUM,IONIZED, WHOLE BLOOD STAT 10/09/2024 8:23 PM SPRINKLER DRIVER CBC WITH AUTO DIFFERENTIAL STAT 10/09/2024 8:23 PM SPRINKLER DRIVER XR CHEST 1 VIEW Timed 10/09/2024 8:19 PM SPRINKLER DRIVER POCT GLUCOSE DEVICE Routine 10/09/2024 7 :06 PM SPRINKLER DRIVER TRANSFUSE PLATELETS Timed 10/09/2024 6 :51 PM SPRINKLER DRIVER TRANSFUSE CRYOPRECIPITATE (POOLED UNITS) Timed 10/09/2024 6:44 PM SPRINKLER DRIVER TRANSFUSE CRYOPRECIPITATE (POOLED UNITS) Timed 10/09/2024 5:57 PM SPRINKLER DRIVER CRITICAL CARE Routine 10/09/2024 5:28 PM SPRINKLER DRIVER Aortic valve stenosis, etiology of cardiac valve disease unspecified Coronary artery disease involving sokaogon coronary artery of sokaogon heart without angina pectoris TRANSFUSE PLATELETS Timed 10/09/2024 5 :24 PM SPRINKLER DRIVER POCT GLUCOSE DEVICE Routine 10/09/2024 5 :23 PM SPRINKLER DRIVER PREPARE CRYOPRECIPITATE (POOLED UNITS) STAT 10/09/2024 5:10 PM SPRINKLER DRIVER XR CHEST 1 VIEW Critical/Life-T hreatening 10/09/2024 5:05 PM SPRINKLER DRIVER EGFR STAT 10/09/2024 4:25 PM SPRINKLER DRIVER FIBRINOGEN Add-On 10/09/2024 4:25 PM SPRINKLER DRIVER PHOSPHORUS Add-On 10/09/2024 4:25 PM SPRINKLER DRIVER MAGNESIUM STAT 10/09/2024 4:25 PM SPRINKLER DRIVER CALCIUM,IONIZED, WHOLE BLOOD STAT 10/09/2024 4:25 PM SPRINKLER DRIVER APTT STAT 10/09/2024 4:25 PM SPRINKLER DRIVER PROTIME-INR STAT 10/09/2024 4:25 PM SPRINKLER DRIVER CBC WITHOUT DIFFERENTIAL Timed 10/09/2024 4:25 PM SPRINKLER DRIVER BLOOD GAS, ARTERIAL Timed 10/09/2024 4 :25 PM SPRINKLER DRIVER BASIC METABOLIC PANEL STAT 10/09/2024 4:25 PM SPRINKLER DRIVER POCT GLUCOSE DEVICE Routine 10/09/2024 4 :07 PM SPRINKLER DRIVER PREPARE PLATELETS STAT 10/09/2024 3:3 7 PM SPRINKLER DRIVER POCT ACTIVATED CLOTTING TIME, HIGH RANGE Routine 10/09/2024 3:23 PM SPRINKLER DRIVER POC BLOOD GAS AND CHEMISTRIES, ARTERIAL Routine 10/09/2024 3:18 PM SPRINKLER DRIVER APTT STAT 10/09/2024 3:00 PM SPRINKLER DRIVER PLATELET COUNT Routine 10/09/2024 3:00 PM SPRINKLER DRIVER PROTIME-INR STAT 10/09/2024 3:00 PM SPRINKLER DRIVER FIBRINOGEN STAT 10/09/2024 3:00 PM SPRINKLER DRIVER TRANSFUSE PLATELETS Timed 10/09/2024 2 :38 PM SPRINKLER DRIVER POC BLOOD GAS AND CHEMISTRIES, ARTERIAL Routine 10/09/2024 2:09 PM SPRINKLER DRIVER TRANSFUSE PLASMA Timed 10/09/2024 2:03 PM SPRINKLER DRIVER POCT ACTIVATED CLOTTING TIME, HIGH RANGE Routine 10/09/2024 2:03 PM SPRINKLER DRIVER TRANSFUSE PLATELETS Timed 10/09/2024 2 :00 PM SPRINKLER DRIVER POC BLOOD GAS AND CHEMISTRIES, ARTERIAL Routine 10/09/2024 1:34 PM SPRINKLER DRIVER POCT ACTIVATED CLOTTING TIME, HIGH RANGE Routine 10/09/2024 1:31 PM SPRINKLER DRIVER POC BLOOD GAS AND CHEMISTRIES, ARTERIAL Routine 10/09/2024 1:08 PM SPRINKLER DRIVER POCT ACTIVATED CLOTTING TIME, HIGH RANGE Routine 10/09/2024 1:06 PM SPRINKLER DRIVER PLATELET COUNT STAT 10/09/2024 1:05 PM SPRINKLER DRIVER POC BLOOD GAS AND CHEMISTRIES, ARTERIAL Routine 10/09/2024 12:31 PM SPRINKLER DRIVER POCT ACTIVATED CLOTTING TIME, HIGH RANGE Routine 10/09/2024 12:29 PM SPRINKLER DRIVER POC BLOOD GAS AND CHEMISTRIES, ARTERIAL Routine 10/09/2024 11:59 AM SPRINKLER DRIVER POCT ACTIVATED CLOTTING TIME, HIGH RANGE Routine 10/09/2024 11:57 AM SPRINKLER DRIVER POC BLOOD GAS AND CHEMISTRIES, ARTERIAL Routine 10/09/2024 11:29 AM SPRINKLER DRIVER POCT ACTIVATED CLOTTING TIME, HIGH RANGE Routine 10/09/2024 11:27 AM SPRINKLER DRIVER POC BLOOD GAS AND CHEMISTRIES, ARTERIAL Routine 10/09/2024 10:55 AM SPRINKLER DRIVER POCT ACTIVATED CLOTTING TIME, HIGH RANGE Routine 10/09/2024 10:53 AM SPRINKLER DRIVER SURGICAL PATHOLOGY Routine 10/09/2024 10:29 AM SPRINKLER DRIVER Coronary artery disease involving sokaogon coronary artery of sokaogon heart without angina pectoris Nonrheumatic aortic valve stenosis POC BLOOD GAS AND CHEMISTRIES, ARTERIAL Routine 10/09/2024 10:00 AM SPRINKLER DRIVER POCT ACTIVATED CLOTTING TIME, HIGH RANGE Routine 10/09/2024 9:54 AM SPRINKLER DRIVER ANESTHESIA CENTRAL VENOUS LINE PLACEMENT Routine 10/09/2024 9:32 AM SPRINKLER DRIVER ANESTHESIA CENTRAL VENOUS LINE PLACEMENT Routine 10/09/2024 9:32 AM SPRINKLER DRIVER ANESTHESIA ARTERIAL LINE PLACEMENT Routine 10/09/2024 9:23 AM SPRINKLER DRIVER ANESTHESIA GENEVA Routine 10/09/2024 9:18 AM SPRINKLER DRIVER MS AN ELECTIVE ENDOTRACHEAL AIRWAY Routine 10/09/2024 9:07 AM SPRINKLER DRIVER POC BLOOD GAS AND CHEMISTRIES, ARTERIAL Routine 10/09/2024 8:49 AM SPRINKLER DRIVER POCT ACTIVATED CLOTTING TIME, HIGH RANGE Routine 10/09/2024 8:46 AM SPRINKLER DRIVER REPLACEMENT AORTIC VALVE 10/09/2024 8:04 AM SPRINKLER DRIVER Coronary artery disease involving sokaogon coronary artery of sokaogon heart without angina pectoris Nonrheumatic aortic valve stenosis CORONARY ARTERY BYPASS GRAFT - INTERNAL MAMMARY/SAPHENOUS VEIN GRAFT - LEG 10/09/2024 8:04 AM SPRINKLER DRIVER Coronary artery disease involving sokaogon coronary artery of sokaogon heart without angina pectoris Nonrheumatic aortic valve stenosis APTT Timed 10/09/2024 4:30 AM SPRINKLER DRIVER CBC WITHOUT DIFFERENTIAL Timed 10/09/2024 4:30 AM SPRINKLER DRIVER APTT Timed 10/08/2024 6:57 PM SPRINKLER DRIVER APTT STAT 10/08/2024 12:52 PM SPRINKLER DRIVER DIFFERENTIAL AUTO Routine 10/08/2024 11:35 AM SPRINKLER DRIVER B CHECK SAMPLE STAT 10/08/2024 11:35 AM SPRINKLER DRIVER TYPE AND SCREEN Timed 10/08/2024 11:35 AM SPRINKLER DRIVER CBC WITH AUTO DIFFERENTIAL Routine 10/08/2024 11:35 AM SPRINKLER DRIVER APTT Timed 10/08/2024 11:35 AM SPRINKLER DRIVER PREPARE PLASMA STAT 10/08/2024 10:57 AM SPRINKLER DRIVER PREPARE PLATELETS STAT 10/08/2024 10:57 AM SPRINKLER DRIVER PREPARE RBC STAT 10/08/2024 10:57 AM SPRINKLER DRIVER APTT Routine 10/08/2024 3:57 AM SPRINKLER DRIVER APTT Timed 10/07/2024 7:05 AM SPRINKLER DRIVER XR CHEST 1 VIEW IP Routine 10/06/2024 9:13 AM SPRINKLER DRIVER APTT Routine 10/06/2024 4:53 AM SPRINKLER DRIVER CBC WITHOUT DIFFERENTIAL Timed 10/06/2024 12:10 AM SPRINKLER DRIVER RESPIRATORY PATHOGEN PANEL Routine 10/05/2024 3:21 PM SPRINKLER DRIVER TRANSESOPHAGEAL ECHO (GENEVA) W DOPPLER/CF WO CONTRAST Routine 10/05/2024 2:29 PM SPRINKLER DRIVER TRANSESOPHAGEAL ECHOCARDIOGRAM 10/05/2024 1:55 PM SPRINKLER DRIVER Aortic valve stenosis, etiology of cardiac valve disease unspecified EGFR Routine 10/05/2024 12:55 PM SPRINKLER DRIVER DIFFERENTIAL AUTO Routine 10/05/2024 12:55 PM SPRINKLER DRIVER BASIC METABOLIC PANEL Routine 10/05/2024 12:55 PM SPRINKLER DRIVER CBC WITH AUTO DIFFERENTIAL Routine 10/05/2024 12:55 PM SPRINKLER DRIVER APTT Routine 10/05/2024 3:14 AM SPRINKLER DRIVER US CAROTIDS DUPLEX BILATERAL IP Routine 10/04/2024 3:[address] CHEST WO CONTRAST IP Routine 10/04/2024 11:54 AM SPRINKLER DRIVER APTT Timed 10/04/2024 10:20 AM SPRINKLER DRIVER XR CHEST 1 VIEW IP Routine 10/04/2024 6:29 AM SPRINKLER DRIVER APTT Timed 10/04/2024 4:25 AM SPRINKLER DRIVER HEMOGLOBIN A1C Add-On 10/03/2024 9:56 PM SPRINKLER DRIVER EGFR Routine 10/03/2024 9:56 PM SPRINKLER DRIVER APTT Routine 10/03/2024 9:56 PM SPRINKLER DRIVER PROTIME-INR Routine 10/03/2024 9:56 PM SPRINKLER DRIVER CBC WITHOUT DIFFERENTIAL Routine 10/03/2024 9:56 PM SPRINKLER DRIVER MAGNESIUM Routine 10/03/2024 9:56 PM SPRINKLER DRIVER COMPREHENSIVE METABOLIC PANEL Routine 10/03/2024 9:56 PM SPRINKLER DRIVER URINALYSIS, MICROSCOPIC ONLY Routine 10/03/2024 9:22 PM SPRINKLER DRIVER URINE CULTURE Routine 10/03/2024 9:22 PM SPRINKLER DRIVER URINALYSIS AND REFLEX TO MICROSCOPIC AND CULTURE Routine 10/03/2024 9:22 PM SPRINKLER DRIVER CARDIOLOGY DOCUMENT SCAN Routine 10/03/2024 4:14 PM SPRINKLER DRIVER CARDIOLOGY DOCUMENT SCAN Routine 10/02/2024 4:12 PM SPRINKLER DRIVER from Last 3 Months Results * DEVICE CHECK - IN OFFICE (11/15/2024 8:03 AM CDT) Anatomical Region Laterality Modality Other Narrative 11/16/2024 8:26 AM CDT [employer] Estancia Dual Pacemaker. Dx; Tachy/Thomas, Afib, Pauses. DOI 10/13/2024-Abilio. [facility]. Supervising MD: Dr. Cerda. Office AAI<> DDD Pacemaker evaluation demonstrated appropriate device function. Left pectoral incision well approximated without signs of infection noted. Battery function: 3.18 V, 14.6 years remaining battery life to CAT[place]. Appropriate lead measurements noted. Presenting rhythm- VS (SR). AP- 1.6%, NURSE ORTHO- <0.1%. Five Atrial high rate episodes noted, iegm's show AFib, longest duration 39 minutes on 10/19/2024. No Ventricular high rate episodes noted. Medications; Plavix, ASA, Pacerone, Toprol-XL. Atrial amplitude decreased to 2.0 V. Ventricular amplitude decreased to 1.5 V. See scanned report. Office device f/u 12/12/2025. [facility] remote f/u 02/21/2025. Suzanna Martino, WADE us Remberto Cerda MD CV CARDIAC SERVICES PROC [...] Unknown LAB BLOOD ORDERABLES Final Res ult NICOLE [facility] [place] [address] * (ABNORMAL) eGFR (10/25/2024 10:34 AM CDT) [...] Unknown LAB BLOOD ORDERABLES Final Res ult [facility] [place] [address] * (ABNORMAL) Differential, auto (10/25/2024 10:34 AM CDT) Neutrophil abs 8.2(H) 1.5 - 6.5 K/cumm Imm gran abs 0.1 0.0 - 0.1 K/cumm [facility] Lymphocyte abs 0.9 0.8 - 3.3 K/cumm [facility] Monocyte abs 0.7 0.2 - 0.8 K/cumm [facility] Eosinophil abs 0.1 0.0 - 0.5 K/cumm [facility] Basophil abs 0.1 0.0 - 0.1 K/cumm [facility] Neutrophil pct 81.6 % [facility] Comment: Interpretive Data Percent cell count reference ranges are not reported, since discordance with absolute values may lead to misinterpretation of CBC data. Current Interpretive Data was last revised on 2017. Imm gran pct 0.6 % [facility] Comment: Interpretive Data Percent cell count reference ranges are not reported, since discordance with absolute values may lead to misinterpretation of CBC data. Current Interpretive Data was last revised on 2017. Lymphocyte pct 9.0 % [facility] Comment: Interpretive Data Percent cell count reference ranges are not reported, since discordance with absolute values may lead to misinterpretation of CBC data. Current Interpretive Data was last revised on 2017. Monocyte pct 6.7 % [facility] Comment: Interpretive Data Percent cell count reference ranges are not reported, since discordance with absolute values may lead to misinterpretation of CBC data. Current Interpretive Data was last revised on 2017. Eosinophil pct 1.4 % [facility] Comment: Interpretive Data Percent cell count reference ranges are not reported, since discordance with absolute values may lead to misinterpretation of CBC data. Current Interpretive Data was last revised on 2017. Basophil pct 0.7 % [facility] Comment: Interpretive Data Percent cell count reference ranges are not reported, since discordance with absolute values may lead to misinterpretation of CBC data. Current Interpretive Data was last revised on 2017. Blood 10/25/2024 10:3 4 AM CDT 10/25/2024 1:31 PM CDT us Notinfile Unknown LAB BLOOD ORDERABLES Final Res ult Performing Organization Address City/[facility] de Phone Number [facility] Department [place] [address] * (ABNORMAL) Basic metabolic panel without glucose (10/25/2024 10:34 AM CDT) Sodium 135 135 - 145 mmol/L Potassium, pl 3.5 3.3 - 4.9 mmol/L [facility] Chloride 95(L) 97 - 110 mmol/L [facility] CO2 30 22 - 32 mmol/L [facility] Anion gap 10 2 - 15 mmol/L [facility] BUN 17 6 - 25 mg/dL [facility] Creatinine 1.45(H) 0.80 - 1.30 mg/dL [facility] Calcium 8.2(L) 8.5 - 10.3 mg/dL [facility] Blood 10/25/2024 10:3 4 AM CDT 10/25/2024 1:31 PM CDT us Notinfile Unknown LAB BLOOD ORDERABLES Final Res ult Performing Organization Address [facility] de Phone Number [facility] Department [place] [address] * (ABNORMAL) CBC with auto differential (10/25/2024 10:34 AM CDT) [facility] WBC 10.0(H) 3.8 - 9.9 K/cumm Hgb 11.7(L) 13.0 - 17.5 g/dL [facility] Hct 36.6(L) 38.9 - 50.3 % [facility] Plt 192 150 - 400 K/cumm [facility] MPV 11.4 9.1 - 12.3 fL [facility] RBC 3.95(L) 4.30 - 5.80 M/cumm [facility] MCV 92.7 81.3 - 96.4 fL [facility] MCH 29.6 27.1 - 33.3 pg [facility] MCHC 32.0(L) 32.3 - 35.7 g/dL [facility] RDW CV 16.0(H) 11.1 - 14.9 % [facility] RDW SD 51.1(H) 35.7 - 48.1 fL [facility] NRBC abs 0.00 0.00 - 0.01 K/cumm [facility] Blood 10/25/2024 10:3 4 AM CDT 10/25/2024 1:31 PM CDT us Notinfile Unknown LAB BLOOD ORDERABLES Final Res ult [facility] Department [place] [address] * eGFR (10/21/2024 8:38 AM CDT) [facility] eGFR 61 >=60 mL/min/1. 73 m2 Comment: [...] MD LAB BLOOD ORDERABLES Final R esult [facility] [address] [address] Department [place] [address] * (ABNORMAL) CBC without differential (10/21/2024 8:38 AM CDT) WBC 9.2 3.8 - 9.9 K/cumm Hgb 11.5(L) 13.0 - 17.5 g/dL [facility] Hct 36.8(L) 38.9 - 50.3 % [facility] Plt 126(L) 150 - 400 K/cumm [facility] MPV 11.4 9.1 - 12.3 fL [facility] RBC 3.83(L) 4.30 - 5.80 M/cumm [facility] MCV 96.1 81.3 - 96.4 fL [facility] MCH 30.0 27.1 - 33.3 pg [facility] MCHC 31.3(L) 32.3 - 35.7 g/dL [facility] RDW CV 16.6(H) 11.1 - 14.9 % [facility] CH RDW SD 51.6(H) 35.7 - 48.1 fL [facility] NRBC abs 0.00 0.00 - 0.01 K/cumm [facility] Blood 10/21/2024 8:38 AM CDT 10/21/2024 9:15 AM CDT Guillermo Mayes MD LAB BLOOD ORDERABLES Final R esult Performing Organization Address City/[facility]/ZIP Co de Phone Number NICOLE RAYGOZA [address] [address] [facility] [place] [address] * Phosphorus (10/21/2024 8:38 AM CDT) Phosphorus, pl 2.4 2.3 - 4.5 mg/dL Blood 10/21/2024 8:38 AM CDT 10/21/2024 9:15 AM CDT Guillermo Mayes MD LAB BLOOD ORDERABLES Final R esult Performing Organization Address [facility] Co de Phone Number NICOLE RAYGOZA [address] [address] Department [place] [address] * Magnesium (10/21/2024 8:38 AM CDT) Magnesium 2.2 1.4 - 2.5 mg/dL Blood 10/21/2024 8:38 AM CDT 10/21/2024 9:15 AM CDT Guillermo Mayes MD LAB BLOOD ORDERABLES Final R [facility] Performing Organization Address [facility] Co de Phone Number NICOLE RAYGOZA [address] [address] Department [place] [address] * (ABNORMAL) Basic metabolic panel (10/21/2024 8:38 AM CDT) Sodium 136 135 - 145 mmol/L Potassium, pl 3.9 3.3 - 4.9 mmol/L [facility] Chloride 100 97 - 110 mmol/L [facility] CH CO2 25 22 - 32 mmol/L [facility] CH Anion gap 11 2 - 15 mmol/L [facility] BUN 31(H) 6 - 25 mg/dL [facility] Creatinine 1.21 0.80 - 1.30 mg/dL [facility] Comment:Icteric sample, test results may be affected. Glucose 105 70 - 199 mg/dL NICOLE RAYGOZA Comment: Interpretive Data Fasting glucose >/= 126 [...] 2022. Calcium 8.8 8.5 - 10.3 mg/dL NICOLE [facility] Blood 10/21/2024 8:38 AM CDT 10/21/2024 9:15 AM CDT us Guillermo Mayes MD LAB BLOOD ORDERABLES Final R esult NICOLE [address] [address] Department [place] [address] * XR Chest 1 View - Portable [...] study. Electronically signed by: Richie Cox M.D. us Guillermo Mayes MD IMG XR [...] Khadar Griffith M.D. us Guillermo Mayes MD [facility] US PROCEDURES Final Resu lt * (ABNORMAL) eGFR (10/20/2024 6:44 AM CDT) Pathologist [facility] eGFR 56(L) >=60 mL/min/1. 73 m2 Comment: [...] 6:44 AM CDT 10/20/2024 7:00 AM CDT Yvette Russell NP LAB BLOOD ORDERABLES Fin al Result [facility] [address] [address] Department [place] [address] * (ABNORMAL) CBC without differential (10/20/2024 6:44 AM CDT) Pathologist [facility] WBC 9.5 3.8 - 9.9 K/cumm Hgb 10.8(L) 13.0 - 17.5 g/dL [facility] Hct 33.7(L) 38.9 - 50.3 % [facility] Plt 141(L) 150 - 400 K/cumm [facility] MPV 11.4 9.1 - 12.3 fL [facility] RBC 3.67(L) 4.30 - 5.80 M/cumm [facility] MCV 91.8 81.3 - 96.4 fL [facility] MCH 29.4 27.1 - 33.3 pg [facility] [...] ORDERABLES Final R esult Performing Organization Address City/[facility]/ZIP Co de Phone Number NICOLE RAYGOZA [address] [address] [facility] [employer] [place], [place] [id number] * Phosphorus (10/20/2024 6:44 AM CDT) Phosphorus, pl 2.3 2.3 - 4.5 mg/dL Blood 10/20/2024 6:44 AM CDT 10/20/2024 7:00 AM CDT Guillermo Mayes MD LAB BLOOD ORDERABLES Final R esult Performing Organization Address [facility] Co de Phone Number NICOLE RAYGOZA [address] [address] Department [place] [address] * Magnesium (10/20/2024 6:44 AM CDT) Magnesium 2.2 1.4 - 2.5 mg/dL Blood 10/20/2024 6:44 AM CDT 10/20/2024 7:00 AM CDT Guillermo Mayes MD LAB BLOOD ORDERABLES Final R esult Performing Organization Address City/[facility]/ZIP Co de Phone Number NICOLE RAYGOZA [address] [address] Department [place] [address] * (ABNORMAL) Basic metabolic panel (10/20/2024 6:44 AM CDT) Sodium 139 135 - 145 mmol/L Potassium, pl 4.1 3.3 - 4.9 mmol/L [facility] Chloride 103 97 - 110 mmol/L [facility] CH CO2 26 22 - 32 mmol/L [facility] Anion gap 10 2 - 15 mmol/L [facility] BUN 40(H) 6 - 25 mg/dL [facility] Creatinine 1.29 0.80 - 1.30 mg/dL [facility] Comment:Icteric sample, test results may be affected. Glucose 113 70 - 199 mg/dL [facility] Comment: Interpretive Data Fasting glucose >/= 126 [...] 2022. Calcium 8.3(L) 8.5 - 10.3 mg/dL [facility] Blood 10/20/2024 6:44 AM CDT 10/20/2024 7:00 AM CDT us Guillermo Mayes MD LAB BLOOD ORDERABLES Final R esult [facility] [address] [address] Department [place] [address] * XR Chest 1 View - Portable [...] 1:29 PM CDT 10/19/2024 1:59 PM CDT us Guillermo Mayes MD LAB BLOOD ORDERABLES Final R esult [facility] [address] [facility] [place] [address] * (ABNORMAL) eGFR (10/19/2024 1:29 [...] 1:29 PM CDT 10/19/2024 2:00 PM CDT us Guillermo Mayes MD LAB BLOOD ORDERABLES Final R esult NICOLE [address] [address] Department [place] [address] * (ABNORMAL) CBC without differential (10/19/2024 1:29 PM CDT) WBC 10.8(H) 3.8 - 9.9 K/cumm Hgb 11.4(L) 13.0 - 17.5 g/dL [facility] Hct 33.8(L) 38.9 - 50.3 % [facility] Plt 153 150 - 400 K/cumm [facility] MPV 11.5 9.1 - 12.3 fL [facility] RBC 3.68(L) 4.30 - 5.80 M/cumm [facility] MCV 91.8 81.3 - 96.4 fL [facility] MCH 31.0 27.1 - 33.3 pg [facility] MCHC 33.7 32.3 - 35.7 g/dL [facility] RDW CV 16.3(H) 11.1 - 14.9 % [facility] RDW SD 48.6(H) 35.7 - 48.1 fL [facility] NRBC abs 0.10(H) 0.00 - 0.01 K/cumm [facility] Blood 10/19/2024 1:29 PM CDT 10/19/2024 2:00 PM CDT us Guillermo Mayes MD LAB BLOOD ORDERABLES Final R esult Performing Organization Address City/[facility]/ZIP Co de Phone Number NICOLE RAYGOZA [address] [place] [address] * Magnesium (10/19/2024 1:29 PM CDT) Pathologist [facility] Magnesium 2.1 1.4 - 2.5 mg/dL Blood 10/19/2024 1:29 PM CDT 10/19/2024 2:00 PM CDT Guillermo Mayes MD LAB BLOOD ORDERABLES Final R [facility] Performing Organization Address [facility] Co de Phone Number NICOLE RAYGOZA [address] [place] [address] * (ABNORMAL) Basic metabolic panel (10/19/2024 1:29 PM CDT) [facility] Sodium 139 135 - 145 mmol/L Potassium, pl 3.8 3.3 - 4.9 mmol/L [facility] Chloride 102 97 - 110 mmol/L [facility] CO2 27 22 - 32 mmol/L [facility] Anion gap 10 2 - 15 mmol/L [facility] BUN 46(H) 6 - 25 mg/dL [facility] Creatinine 1.45(H) 0.80 - 1.30 mg/dL [facility] Comment:Icteric sample, test results may be affected. Glucose 134 70 - 199 mg/dL [facility] Comment: Interpretive Data Fasting glucose >/= 126 [...] 2022. Calcium 8.3(L) 8.5 - 10.3 mg/dL [facility] Blood 10/19/2024 1:29 PM CDT 10/19/2024 2:00 PM CDT Guillermo Mayes MD LAB BLOOD ORDERABLES Final R esult Performing Organization Address [facility] Co de Phone Number NICOLE RAYGOZA [address] [address] Department [place] [address] * Hepatitis panel, acute Blood (10/19/2024 9:29 AM CDT) Hep A IgM Nonreactive Nonreactive Comment: Interpretive Data: If Hep A IgM Ab is reported as Equivocal, a new sample should be drawn in two weeks for testing. Current interpretive data was last revised on 19. Hep B core IgM Nonreactive Nonreactive [facility] Comment: Interpretive Data If HepB Core IgM Ab is reported as Equivocal, a new sample should be drawn in two weeks for testing. Current interpretive data was last revised on 19. Hep C Ab Nonreactive Nonreactive [facility] Comment: Interpretive Data Nonreactive: Antibodies to HCV [...] last revised on 2019. HepBsAg Nonreactive Nonreactive [facility] Blood 10/19/2024 9:29 AM CDT 10/19/2024 9:54 AM CDT us Guillermo Mayes MD LAB MICROBIOLOGY - GENERAL O RDERABLES Final Result Performing Organization Address City/[facility]/ZIP Co de Phone Number NICOLE RAYGOZA [address] [address] Department [place] [address] * (ABNORMAL) Protime-INR (10/19/2024 9:29 AM CDT) PT 13.5(H) 9.7 - 13.0 sec INR 1.24(H) 0.90 - 1.20 [facility] Comment: Interpretive data Oral anticoagulant therapeutic ranges: [...] R esult Performing Organization Address [facility] Co de Phone Number NICOLE RAYGOZA [address] [address] [place] [address] * (ABNORMAL) Hepatic function panel (10/19/2024 9:29 AM CDT) Bilirubin, total 2.5(H) 0.1 - 1.2 mg/dL Bilirubin, direct 0.4(H) 0.1 - 0.3 mg/dL [facility] Protein, pl 5.5(L) 6.5 - 8.5 g/dL [facility] Albumin 3.3(L) 3.5 - 5.0 g/dL [facility] Alk phos 97 40 - 130 Units/L [facility] ALT 864(H) 7 - 55 Units/L [facility] AST 171(H) 10 - 50 Units/L [facility] Blood 10/19/2024 9:29 AM CDT 10/19/2024 9:55 AM CDT Guillermo Mayes MD LAB BLOOD ORDERABLES Final R esult Performing Organization Address [facility] Co de Phone Number NICOLE RAYGOZA [address] [address] [place], [place] [id number] * XR Chest 1 View - Portable [...] AM CDT) 10/19/2024 3:14 AM CDT Narrative [facility] - 10/19/2024 8:19 AM CDT Vent Rate: 88 bpm RR Interval: 679 msec MS Interval: 128 msec QRS Duration: 100 msec QT Interval: 374 msec QTC Interval: 419 msec P-R-T Dawn: 26 - 17 - 30 degrees IMPRESSION: SINUS RHYTHM NONSPECIFIC INTRAVENTRICULAR CONDUCTION DELAY Electronically Signed By: Wily Murrieta MD, [facility] us Daisy Llamas MD ECG ORDERABLES Final Res ult [facility] * (ABNORMAL) eGFR (10/19/2024 2:59 AM CDT) [...] 10/19/2024 3:07 AM CDT us Yvette Russell NP LAB BLOOD ORDERABLES Fin al Result [facility] [address] [address] Department [place] [address] * (ABNORMAL) CBC without differential (10/19/2024 2:59 AM CDT) WBC 11.2(H) 3.8 - 9.9 K/cumm Hgb 10.3(L) 13.0 - 17.5 g/dL [facility] Hct 31.1(L) 38.9 - 50.3 % [facility] Plt 142(L) 150 - 400 K/cumm [facility] MPV 11.4 9.1 - 12.3 fL [facility] RBC 3.42(L) 4.30 - 5.80 M/cumm [facility] MCV 90.9 81.3 - 96.4 fL [facility] MCH 30.1 27.1 - 33.3 pg [facility] MCHC 33.1 32.3 - 35.7 g/dL [facility] RDW CV 16.0(H) 11.1 - 14.9 % [facility] RDW SD 47.8 35.7 - 48.1 fL [facility] NRBC abs 0.10(H) 0.00 - 0.01 K/cumm [facility] Blood 10/19/2024 2:59 AM CDT 10/19/2024 3:08 AM CDT Guillermo Mayes MD LAB BLOOD ORDERABLES Final R esult NICOLE RAYGOZA [address] [address] Department [place] [address] * (ABNORMAL) Phosphorus (10/19/2024 2:59 AM CDT) Phosphorus, pl 2.1(L) 2.3 - 4.5 mg/dL Blood 10/19/2024 2:59 AM CDT 10/19/2024 3:07 AM CDT Guillermo Mayes MD LAB BLOOD ORDERABLES Final R esult Performing Organization Address City/[facility] Co de Phone Number NICOLE RAYGOZA [address] [place] [address] * Magnesium (10/19/2024 2:59 AM CDT) Magnesium 2.2 1.4 - 2.5 mg/dL Blood 10/19/2024 2:59 AM CDT 10/19/2024 3:07 AM CDT Guillermo Mayes MD LAB BLOOD ORDERABLES Final R esult Performing Organization Address City/[facility] Co de Phone Number NICOLE RAYGOZA [address] [address] [facility] [place] [address] * (ABNORMAL) Basic metabolic panel (10/19/2024 2:59 AM CDT) Sodium 139 135 - 145 mmol/L Potassium, pl 4.0 3.3 - 4.9 mmol/L [facility] Chloride 105 97 - 110 mmol/L [facility] CO2 25 22 - 32 mmol/L [facility] Anion gap 9 2 - 15 mmol/L [facility] BUN 51(H) 6 - 25 mg/dL [facility] Creatinine 1.35(H) 0.80 - 1.30 mg/dL [facility] Comment:Icteric sample, test results may be affected. Glucose 124 70 - 199 mg/dL [facility] Comment: Interpretive Data Fasting glucose >/= 126 [...] 2022. Calcium 7.9(L) 8.5 - 10.3 mg/dL [facility] Blood 10/19/2024 2:59 AM CDT 10/19/2024 3:07 AM CDT Guillermo Mayes MD LAB BLOOD ORDERABLES Final R esult Performing Organization Address City/State/[facility] Co de Phone Number [address] [place] [address] * Clinical pathology report (10/18/2024 11:46 AM CDT) Miscellaneous 10/18/2024 11: 46 AM CDT 10/18/2024 11:46 AM CDT Narrative 10/18/2024 3:46 PM CDT EPIC results best viewed via link to PDF [facility] Department of Pathology [address] [place] [address] Final Report Note to Patients: This report [...] the details. Patient Name: TREVOR SHAW Address: [address] [place] [address] Gender: M : 1945 (Age: 79) Service: Cardiothoracic Location: [facility] #: [id number] [facility] Type: [facility] Taken: 10/18/2024 Received: 10/18/2024 Accessioned: 10/18/2024 Physician(s): [...] determined by the Surgical Pathology Department at [facility] as part of an ongoing corporate quality engineer program and in compliance with federally mandated [...] characteristics determined by the Surgical Pathology Department [facility]. It has not been cleared or approved [...] BLOOD ORDERABLES Final R esult NICOLE RAYGOZA [address] [address] Department [place] [address] * XR Chest 1 View - Portable [...] NP LAB BLOOD ORDERABLES Fin al Result [facility] [address] [address] [place] [address] * (ABNORMAL) CBC without differential (10/18/2024 3:32 AM CDT) WBC 14.9(H) 3.8 - 9.9 K/cumm Hgb 10.1(L) 13.0 - 17.5 g/dL [facility] Hct 30.3(L) 38.9 - 50.3 % [facility] Plt 150 150 - 400 K/cumm [facility] MPV 11.5 9.1 - 12.3 fL [facility] RBC 3.30(L) 4.30 - 5.80 M/cumm [facility] MCV 91.8 81.3 - 96.4 fL [facility] MCH 30.6 27.1 - 33.3 pg [facility] MCHC 33.3 32.3 - 35.7 g/dL [facility] RDW CV 15.3(H) 11.1 - 14.9 % [facility] CH RDW SD 48.7(H) 35.7 - 48.1 fL [facility] CH NRBC abs 0.38(H) 0.00 - 0.01 K/cumm [facility] CH Blood 10/18/2024 3:32 AM CDT 10/18/2024 3:35 AM CDT us Guillermo Mayes MD LAB BLOOD ORDERABLES Final R esult Performing Organization Address [facility] Co de Phone Number NICOLE [address] [address] [facility] [place] [address] * Phosphorus (10/18/2024 3:32 AM CDT) Phosphorus, pl 3.2 2.3 - 4.5 mg/dL Blood 10/18/2024 3:32 AM CDT 10/18/2024 3:35 AM CDT Guillermo Mayes MD LAB BLOOD ORDERABLES Final R esult Performing Organization Address [facility] de Phone Number NICOLE [address] [address] Liu [facility] [place] [address] * Magnesium (10/18/2024 3:32 AM CDT) Magnesium 2.3 1.4 - 2.5 mg/dL Blood 10/18/2024 3:32 AM CDT 10/18/2024 3:35 AM CDT Guillermo Mayes MD LAB BLOOD ORDERABLES Final R esult Performing Organization Address [facility] de Phone Number NICOLE [address] [address] Liu Department [place] [address] * (ABNORMAL) Lactate dehydrogenase (LD) (10/18/2024 3:32 AM CDT) Lactate dehydrogenase (LDH) 672(H) 100 - 250 Units/L Comment:Hemolysis present. R esults may be affected. Blood 10/18/2024 3:32 AM CDT 10/18/2024 6:38 AM CDT Jonathan Rodriguez MD LAB BLOOD ORDERABLES Final Resu lt Performing Organization Address [facility] Co de Phone Number NICOLE [address] [address] Liu [place] [address] * (ABNORMAL) Haptoglobin (10/18/2024 3:32 AM CDT) Haptoglobin <10(L) 30 - 200 mg/dL Comment:Hemolysis present. R esults may be affected. Blood 10/18/2024 3:32 AM CDT 10/18/2024 6:38 AM CDT Jonathan Rodriguez MD LAB BLOOD ORDERABLES Final Resu lt Performing Organization Address [facility] Co de Phone Number NICOLE RAYGOZA [address] [address] Liu Department [place] [address] * (ABNORMAL) Hepatic function panel (10/18/2024 3:32 AM CDT) Pathologist [facility] Bilirubin, total 1.1 0.1 - 1.2 mg/dL Bilirubin, direct 0.4(H) 0.1 - 0.3 mg/dL [facility] Protein, pl 5.6(L) 6.5 - 8.5 g/dL [facility] Albumin 3.4(L) 3.5 - 5.0 g/dL [facility] Alk phos 98 40 - 130 Units/L [facility] ALT 1,579(H) 7 - 55 Units/L [facility] AST 700(H) 10 - 50 Units/L [facility] Blood 10/18/2024 3:32 AM CDT 10/18/2024 3:27 PM CDT Jonathan Rodriguez MD LAB BLOOD ORDERABLES Final Resu lt Performing Organization Address [facility]/ZIP Co de Phone Number LORINACE RAYGOZA [address] [address] Liu Department [place] [address] * (ABNORMAL) Basic metabolic panel (10/18/2024 3:32 AM CDT) Pathologist [facility] Sodium 140 135 - 145 mmol/L Potassium, pl 3.9 3.3 - 4.9 mmol/L [facility] Chloride 102 97 - 110 mmol/L [facility] CO2 25 22 - 32 mmol/L [facility] Anion gap 13 2 - 15 mmol/L [facility] BUN 70(H) 6 - 25 mg/dL [facility] Creatinine 1.94(H) 0.80 - 1.30 mg/dL [facility] Glucose 120 70 - 199 mg/dL [facility] Comment: Interpretive Data Fasting glucose >/= 126 [...] 2022. Calcium 8.5 8.5 - 10.3 mg/dL [facility] Blood 10/18/2024 3:32 AM CDT 10/18/2024 3:35 AM CDT Guillermo Mayes MD LAB BLOOD ORDERABLES Final R esult Performing Organization Address City/[facility]/ZIP Co de Phone Number LORINACE [address] [address] [place], [place] [id number] * POCT glucose (10/17/2024 6:21 PM CDT) Glucose, POC 125 70 - 199 mg/dL Blood 10/17/2024 6:21 PM CDT 10/17/2024 6:21 PM CDT Guillermo Mayes MD LAB POCT ORDERABLES - DEVICE Final Result Performing Organization Address [facility] Co de Phone Number [facility] [address] [address] [place] [address] * (ABNORMAL) Calcium, ionized, whole blood (10/17/2024 6:00 PM CDT) Ca, ionized, bld 4.22(L) 4.50 - 5.10 mg/dL Blood 10/17/2024 6:00 PM CDT 10/17/2024 6:11 PM CDT Guillermo Mayes MD LAB BLOOD ORDERABLES Final R esult Performing Organization Address [facility] Co de Phone Number NICOLE RAYGOZA [address] [place] [address] * (ABNORMAL) eGFR (10/17/2024 6:00 PM CDT) [...] 6:00 PM CDT 10/17/2024 6:16 PM CDT Guillermo Mayes MD LAB BLOOD ORDERABLES Final R esult NICOLE RAYGOZA [address] [address] Liu Department [employer] [place], [place] [phone] * (ABNORMAL) CBC with auto differential (10/17/2024 6:00 PM CDT) WBC 15.4(H) 3.8 - 9.9 K/cumm Hgb 9.9(L) 13.0 - 17.5 g/dL [facility] Hct 29.5(L) 38.9 - 50.3 % [facility] Plt 156 150 - 400 K/cumm [facility] MPV 12.0 9.1 - 12.3 fL [facility] RBC 3.24(L) 4.30 - 5.80 M/cumm [facility] MCV 91.0 81.3 - 96.4 fL [facility] MCH 30.6 27.1 - 33.3 pg [facility] MCHC 33.6 32.3 - 35.7 g/dL [facility] RDW CV 15.2(H) 11.1 - 14.9 % [facility] RDW SD 48.6(H) 35.7 - 48.1 fL [facility] NRBC abs 0.64(H) 0.00 - 0.01 K/cumm [facility] Blood 10/17/2024 6:00 PM CDT 10/17/2024 6:11 PM CDT Guillermo Mayes MD LAB BLOOD ORDERABLES Edited Result - Final [facility] [address] [address] Liu [place] [address] * (ABNORMAL) Manual Differential (10/17/2024 6:00 PM CDT) Differential Manual Cells Counted 100 [facility] Neutrophil abs 14.3(H) 1.5 - 6.5 K/cumm [facility] Imm gran abs 0.3(H) 0.0 - 0.1 K/cumm [facility] Lymphocyte abs 0.8 0.8 - 3.3 K/cumm [facility] Monocyte abs 0.0(L) 0.2 - 0.8 K/cumm [facility] Neutrophil pct 89.0 % [facility] Comment: Interpretive Data Percent cell count reference ranges are not reported, since discordance with absolute values may lead to misinterpretation of CBC data. Current Interpretive Data was last revised on 2017. Lymphocyte pct 5.0 % [facility] Comment: Interpretive Data Percent cell [...] Platelet estimate Adequate [facility] Blood 10/17/2024 6:0 0 PM CDT 10/17/2024 6:13 PM CDT Guillermo Mayes MD LAB BLOOD ORDERABLES Final R esult NICOLE [address] Liu Department [employer] [place], [place] [id number] * Phosphorus (10/17/2024 6:00 PM CDT) Phosphorus, pl 3.9 2.3 - 4.5 mg/dL Blood 10/17/2024 6:00 PM CDT 10/17/2024 6:11 PM CDT Guillermo Mayes MD LAB BLOOD ORDERABLES Final R esult Performing Organization Address City/[facility]/ZIP Co de Phone Number NICOLE RAYGOZA [address] [address] Liu Department [place] [address] * Magnesium (10/17/2024 6:00 PM CDT) Magnesium 2.4 1.4 - 2.5 mg/dL Blood 10/17/2024 6:00 PM CDT 10/17/2024 6:11 PM CDT Guillermo Mayes MD LAB BLOOD ORDERABLES Final R esult NICOLE RAYGOZA [address] [address] Liu Department [place] [address] * (ABNORMAL) Blood gas, arterial (10/17/2024 6:00 [...] MD LAB BLOOD ORDERABLES Final R esult [facility] [address] [address] Liu [place] [address] * (ABNORMAL) Basic metabolic panel (10/17/2024 6:00 PM CDT) Pathologist [facility] Sodium 139 135 - 145 mmol/L Potassium, pl 3.7 3.3 - 4.9 mmol/L [facility] Chloride 102 97 - 110 mmol/L [facility] CO2 23 22 - 32 mmol/L [facility] Anion gap 14 2 - 15 mmol/L [facility] BUN 79(H) 6 - 25 mg/dL [facility] Creatinine 2.09(H) 0.80 - 1.30 mg/dL [facility] Glucose 118 70 - 199 mg/dL [facility] Comment: Interpretive Data Fasting glucose >/= 126 [...] 2022. Calcium 8.1(L) 8.5 - 10.3 mg/dL [facility] Blood 10/17/2024 6:00 PM CDT 10/17/2024 6:11 PM CDT us Guillermo Mayes MD LAB BLOOD ORDERABLES Final R esult NICOLE [address] Department [place] [address] * TRANSTHORACIC ECHO (TTE) LIMITED/FOLLOW UP W LTD DOPPLER/CF WO CONTRAST (10/17/2024 9:24 AM CDT) Anatomical Region Laterality Modality Ultrasound 10/17/2024 9:00 AM CDT Narrative 10/17/2024 1:24 [place] [address] Limited Echocardiogram Report Patient Name: TREVOR SHAW : 1945 Study Date: 10/17/2024 9:00:17 AM Gender: M Tech: Location: [id number] Ref Provider: GUILLERMO MAYES Height(Cm): 182 BSA: [...] tamponade. Electronically Signed By: Boris Zaragoza MD, [facility] 10/17/2024 1:24:06 PM CDT Procedure Note Boris Zaragoza MD - 10/17/2024 [place] [address] Limited Echocardiogram Report Patient Name: TREVOR SHAW : 1945 Study Date: 10/17/2024 9:00:17 AM Gender: M Tech: Location: [id number] Ref Provider: GUILLERMO MAYES Height(Cm): 182 BSA: [...] tamponade. Electronically Signed By: Boris Zaragoza MD, FACC 10/17/2024 1:24:06 PM CDT Guillermo Mayes MD CV ECHO PROCEDURES Final Res ult * Calcium, ionized, whole blood (10/17/2024 8:03 AM CDT) Pathologist [facility] Ca, ionized, bld 4.51 4.50 - 5.10 mg/dL Blood 10/17/2024 8:03 AM CDT 10/17/2024 8:19 AM CDT us Angelica Hagan [employer] DEVELOPER LAB BLOOD ORDERABLES Final Result NICOLE [address] [facility] [place] [address] * (ABNORMAL) eGFR (10/17/2024 8:03 AM CDT) Pathologist [facility] eGFR 26(L) >=60 mL/min/1. 73 m2 Comment: Interpretive Data Reference Interval Normal >/= 90 mL/min/1.73m2 Mildly decreased* 60 - 89 mL/min/1.73m2 Mildly to moderately decreased 45 - 59 mL/min/1.73m2 Moderately to severely decreased 30 - 44 mL/min/1.73m2 Severely decreased 15 - 29 mL/min/1.73m2 Kidney Failure < 15 mL/min/1.73m2 *Relative to young adult level Estimated glomerular filtration rate is determined by the 2021 CKD-EPI equation recommended by the National Kidney [...] CDT 10/17/2024 8:22 AM CDT Angelica Hagan F[employer] DEVELOPER LAB BLOOD ORDERABLES Final Result Performing Organization Address City/[facility]/ZIP Co de Phone Number LORINACE [address] [address] [place] [address] * Magnesium (10/17/2024 8:03 AM CDT) Pathologist [facility] Magnesium 2.4 1.4 - 2.5 mg/dL Blood 10/17/2024 8:03 AM CDT 10/17/2024 8:22 AM CDT Angelica Hagan [employer] DEVELOPER LAB BLOOD ORDERABLES Final Result Performing Organization Address City/[facility]/ZIP Co de Phone Number NICOLE [address] Jose Manuel Department [place] [address] * (ABNORMAL) Basic metabolic panel (10/17/2024 8:03 AM CDT) Sodium 139 135 - 145 mmol/L Potassium, pl 4.3 3.3 - 4.9 mmol/L [facility] Chloride 100 97 - 110 mmol/L [facility] CO2 21(L) 22 - 32 mmol/L [facility] Anion gap 18(H) 2 - 15 mmol/L [facility] BUN 84(H) 6 - 25 mg/dL [facility] Creatinine 2.42(H) 0.80 - 1.30 mg/dL [facility] Glucose 142 70 - 199 mg/dL [facility] Comment: [...] 2022. Calcium 8.3(L) 8.5 - 10.3 mg/dL [facility] Blood 10/17/2024 8:03 AM CDT 10/17/2024 8:22 AM CDT Angelica Hagan NP LAB BLOOD ORDERABLES Final Result Performing Organization Address City/[facility]/ZIP Co de Phone Number [facility] [address] [address] Manuel Department of [employer] [place], [place] [phone] * (ABNORMAL) Lactate (10/17/2024 6:41 AM CDT) Pathologist [facility] Lactate 2.2(H) 0.7 - 2.0 mmol/L Blood 10/17/2024 6:41 AM CDT 10/17/2024 6:45 AM CDT Daisy Llamas MD LAB BLOOD ORDERABLES Kamla l Result Performing Organization Address City/[facility]/ZIP Co de Phone Number [facility] [address] [address] Manuel Department [employer] [place], [place] [phone] * (ABNORMAL) CBC without differential (10/17/2024 6:41 AM CDT) WBC 15.8(H) 3.8 - 9.9 K/cumm Hgb 9.7(L) 13.0 - 17.5 g/dL [facility] Hct 29.4(L) 38.9 - 50.3 % [facility] Plt 160 150 - 400 K/cumm [facility] MPV 11.9 9.1 - 12.3 fL [facility] RBC 3.24(L) 4.30 - 5.80 M/cumm [facility] MCV 90.7 81.3 - 96.4 fL [facility] MCH 29.9 27.1 - 33.3 pg [facility] MCHC 33.0 32.3 - 35.7 g/dL [facility] RDW CV 15.0(H) 11.1 - 14.9 % [facility] RDW SD 47.9 35.7 - 48.1 fL [facility] NRBC abs 0.87(H) 0.00 - 0.01 K/cumm [facility] Blood 10/17/2024 6:41 AM CDT 10/17/2024 6:47 AM CDT Daisy Llamas MD LAB BLOOD ORDERABLES Kamla l Result Performing Organization Address City/[facility] Co de Phone Number NICOLE [address] Jose Manuel [facility] [place] [address] * (ABNORMAL) Lactate (10/17/2024 5:51 AM CDT) Pathologist [facility] Lactate 2.5(H) 0.7 - 2.0 mmol/L Blood 10/17/2024 5:51 AM CDT 10/17/2024 5:53 AM CDT Daisy Llamas MD LAB BLOOD ORDERABLES Kamla l Result Performing Organization Address City/[facility] Co de Phone Number [facility] [address] [address] Manuel Department [place] [address] * (ABNORMAL) CBC without differential (10/17/2024 5:51 AM CDT) WBC 15.8(H) 3.8 - 9.9 K/cumm Hgb 9.7(L) 13.0 - 17.5 g/dL [facility] CH Hct 29.1(L) 38.9 - 50.3 % [facility] Plt 162 150 - 400 K/cumm [facility] MPV 11.9 9.1 - 12.3 fL [facility] RBC 3.20(L) 4.30 - 5.80 M/cumm [facility] MCV 90.9 81.3 - 96.4 fL [facility] MCH 30.3 27.1 - 33.3 pg [facility] MCHC 33.3 32.3 - 35.7 g/dL [facility] CH RDW CV 15.0(H) 11.1 - 14.9 % [facility] RDW SD 48.3(H) 35.7 - 48.1 fL [facility] NRBC abs 0.85(H) 0.00 - 0.01 K/cumm [facility] Blood 10/17/2024 5:51 AM CDT 10/17/2024 5:53 AM CDT Daisy Llamas MD LAB BLOOD ORDERABLES Kamla l Result Performing Organization Address City/[facility] Co de Phone Number NICOLE RAYGOZA [address] [address] Liu Department [place] [address] * Vancomycin level random (10/17/2024 4:57 AM CDT) Vancomycin random 17.5 mcg/mL Comment: Interpretive Data No reference ranges have been established for random drug levels. Current Interpretive Data was last revised on 2020. Blood 10/17/2024 4:57 AM CDT 10/17/2024 11:47 AM CDT Guillermo Mayes MD LAB BLOOD ORDERABLES Final R esult Performing Organization Address [facility] Co de Phone Number [facility] [address] [address] Department [place] [address] * XR Chest 1 View - Portable [...] Mayes MD BLOOD TRANSFUSION ORDERABLES Final Result [facility] [address] [address] Manuel [place] [address] * (ABNORMAL) CBC without differential (10/16/2024 9:31 PM CDT) WBC 18.4(H) 3.8 - 9.9 K/cumm Hgb 9.7(L) 13.0 - 17.5 g/dL [facility] Hct 29.2(L) 38.9 - 50.3 % [facility] Plt 198 150 - 400 K/cumm [facility] MPV 11.9 9.1 - 12.3 fL [facility] RBC 3.22(L) 4.30 - 5.80 M/cumm [facility] MCV 90.7 81.3 - 96.4 fL [facility] MCH 30.1 27.1 - 33.3 pg [facility] MCHC 33.2 32.3 - 35.7 g/dL [facility] RDW CV 14.7 11.1 - 14.9 % [facility] RDW SD 47.2 35.7 - 48.1 fL [facility] NRBC abs 1.34(H) 0.00 - 0.01 K/cumm NICOLE Blood 10/16/2024 9:31 PM CDT 10/16/2024 9:45 PM CDT Daisy Llamas MD LAB BLOOD ORDERABLES Kamla l Result [facility] [address] [address] Liu [place] [address] * Critical Care (10/16/2024 8:44 PM CDT) Narrative Daisy Llamas MD - 10/16/2024 8:44 PM CDT Daisy Llamas MD 10/17/2024 5:38 AM Critical Care Performed by: Daisy Llamas MD Authorized by: Daisy Llamas MD CRITICAL CARE: Team: JOSIE Shift: PM Level of Billing: Critical Care [...] plan with the ICU team and other medical/sharepoint consultant staff, making frequent assessments and decisions [...] * POCT glucose (10/16/2024 8:12 PM CDT) [facility] Glucose, POC 146 70 - 199 mg/dL Blood 10/16/2024 8:12 PM CDT 10/16/2024 8:12 PM CDT us Guillermo Mayes MD LAB POCT ORDERABLES - DEVICE Final Result Performing Organization Address [facility] Co de Phone Number [facility] [address] Jose [address] [facility] [place] [address] * Transfuse RBC (10/16/2024 7:30 PM CDT) Blood Guillermo Mayes MD BLOOD TRANSFUSION ORDERABLES Final Result Performing Organization Address City/[facility]/ZIP Co de Phone Number NICOLE [address] [address] Manuel Department [place] [address] * Transfuse RBC (10/16/2024 4:09 PM CDT) Blood us Angelica Hagan F[employer] P[employer]ON DEVELOPER BLOOD TRANSFUSION ORDERABLE S Final Result Performing Organization Address [facility] Co de Phone Number [facility] [address] [address] Department [place] [address] * (ABNORMAL) eGFR (10/16/2024 2:38 PM CDT) [facility] eGFR 27(L) >=60 mL/min/1. 73 m2 Comment: [...] LAB BLOOD ORDERABLES Final R esult NICOLE [address] [address] Liu [place] [address] * (ABNORMAL) CBC without differential (10/16/2024 2:38 PM CDT) WBC 21.1(H) 3.8 - 9.9 K/cumm Hgb 7.8(L) 13.0 - 17.5 g/dL [facility] Hct 23.5(L) 38.9 - 50.3 % [facility] Plt 201 150 - 400 K/cumm [facility] MPV 12.0 9.1 - 12.3 fL [facility] RBC 2.58(L) 4.30 - 5.80 M/cumm [facility] MCV 91.1 81.3 - 96.4 fL [facility] MCH 30.2 27.1 - 33.3 pg [facility] MCHC 33.2 32.3 - 35.7 g/dL [facility] RDW CV 14.7 11.1 - 14.9 % [facility] RDW SD 46.7 35.7 - 48.1 fL [facility] NRBC abs 0.93(H) 0.00 - 0.01 K/cumm [facility] Blood 10/16/2024 2:38 PM CDT 10/16/2024 2:38 PM CDT us Guillermo Mayes MD LAB BLOOD ORDERABLES Final R esult Performing Organization Address [facility] Co de Phone Number NICOLE RAYGOZA [address] Jose [address] [facility] [place] [address] * Magnesium (10/16/2024 2:38 PM CDT) Magnesium 2.2 1.4 - 2.5 mg/dL Blood 10/16/2024 2:38 PM CDT 10/16/2024 2:38 PM CDT Guillermo Mayes MD LAB BLOOD ORDERABLES Final R esult Performing Organization Address [facility] de Phone Number NICOLE RAYGOZA [address] Jose Manuel [facility] [place] [address] * (ABNORMAL) Lactate dehydrogenase (LD) (10/16/2024 2:38 PM CDT) Lactate dehydrogenase (LDH) 1,808(H) 100 - 250 Units/L Blood 10/16/2024 2:38 PM CDT 10/18/2024 7:05 AM CDT Jonathan Rodriguez MD LAB BLOOD ORDERABLES Final Resu lt Performing Organization Address [facility] de Phone Number NICOLE [address] Jose Manuel [facility] [place] [address] * (ABNORMAL) Haptoglobin (10/16/2024 2:38 PM CDT) Haptoglobin <10(L) 30 - 200 mg/dL Comment:Hemolysis present. R esults may be affected. Blood 10/16/2024 2:38 PM CDT 10/18/2024 7:05 AM CDT Jonathan Rodriguez MD LAB BLOOD ORDERABLES Final Resu lt Performing Organization Address [facility] Co de Phone Number NICOLE [address] Jose Manuel [facility] [place] [address] * (ABNORMAL) Basic metabolic panel (10/16/2024 2:38 PM CDT) Sodium 138 135 - 145 mmol/L Potassium, pl 4.9 3.3 - 4.9 mmol/L [facility] Chloride 102 97 - 110 mmol/L [facility] CO2 17(L) 22 - 32 mmol/L [facility] Anion gap 19(H) 2 - 15 mmol/L [facility] BUN 80(H) 6 - 25 mg/dL [facility] Creatinine 2.40(H) 0.80 - 1.30 mg/dL [facility] Comment:Icteric sample, test results may be affected. Glucose 148 70 - 199 mg/dL [facility] Comment: Interpretive Data Fasting glucose >/= 126 [...] 2022. Calcium 8.3(L) 8.5 - 10.3 mg/dL [facility] Blood 10/16/2024 2:38 PM CDT 10/16/2024 2:38 PM CDT Guillermo Mayes MD LAB BLOOD ORDERABLES Final R esult NICOLE [address] Jose Manuel [place] [address] * (ABNORMAL) Lactate (10/16/2024 2:24 PM CDT) Pathologist [facility] Lactate 4.8(C) 0.7 - 2.0 mmol/L Comment:Critical result call ed to and read back by Roopa Galeana on 10/16/2024 14:44:25 CDT to Anna Rob. Blood 10/16/2024 2:24 PM CDT 10/16/2024 2:37 PM CDT Guillermo Mayes MD LAB BLOOD ORDERABLES Final R esult Performing Organization Address [facility] Co de Phone Number NICOLE RAYGOZA [address] Jose Manuel [facility] [place] [address] * Calcium, ionized, whole blood (10/16/2024 2:24 PM CDT) Ca, ionized, bld 4.56 4.50 - 5.10 mg/dL Blood 10/16/2024 2:24 PM CDT 10/16/2024 2:37 PM CDT Result [facility] Guillermo Mayes MD LAB BLOOD ORDERABLES Final R esult Performing Organization Address [facility] Phone Number NICOLE RAYGOZA [address] [address] Manuel [place] [address] * (ABNORMAL) Blood gas, arterial (10/16/2024 2:24 [...] 2:24 PM CDT 10/16/2024 2:37 PM CDT Result [facility] Guillermo Mayes MD LAB BLOOD ORDERABLES Final R esult Performing Organization Address [facility] Co de Phone Number NICOLE RAYGOZA [address] Jose Manuel [facility] [employer] [place], [place] [id number] * Prepare RBC: 2 Units (10/16/2024 2:09 PM CDT) Product code [id number] Unit Number [id number] [facility] Product Blood Type OPOS [facility] Dispense Status PRESUMED TRANSFUSED [facility] Product code [id number] [facility] Unit Number [id number] [facility] Product Blood Type OPOS [facility] Dispense Status PRESUMED TRANSFUSED [facility] Blood 10/16/2024 2:09 PM CDT Narrative [facility] - 10/17/2024 10:15 AM CDT Are special requirements needed? (All products are leukoreduced and CMV- safe)- >No Date required:-[id number] LRRBC # of [id number] Reasons:-Hgb <7 g/dL} Angelica Hagan NP BLOOD BANK PRODUCT ORDERABL ES Final Result Performing Organization Address [facility]/ZIP Co de Phone Number LORINACE [address] [address] Manuel Department [place] [address] * Transfuse RBC (10/16/2024 12:30 PM CDT) Blood Angelica Hagan NP BLOOD TRANSFUSION ORDERABLE S Final Result Performing Organization Address [facility]/ZIP Co de Phone Number LORINACE [address] Jose Manuel Department of [employer] [place], [place] [phone] * Blood culture Blood (10/16/2024 12:04 PM CDT) Report Final Report: No growth Comment:Testing performed by : [facility], [address], [place]., [address] Blood 10/16/2024 12:0 4 PM CDT 10/16/2024 [...] performance characteristics have been verified by the [facility] Microbiology Laboratory. For questions about this culture, contact the Microbiology Laboratory at [phone]. Interpretive data was last revised on 24. Roopa Yeboah NP LAB MICROBIOLOGY - GEN ERAL ORDERABLES Final Result [facility] [address] [address] Liu Department [place] [address] * (ABNORMAL) CBC without differential (10/16/2024 12:04 PM CDT) WBC 22.1(H) 3.8 - 9.9 K/cumm Hgb 6.8(L) 13.0 - 17.5 g/dL [facility] Hct 20.7(L) 38.9 - 50.3 % [facility] Plt 203 150 - 400 K/cumm [facility] MPV 12.1 9.1 - 12.3 fL [facility] RBC 2.22(L) 4.30 - 5.80 M/cumm [facility] MCV 93.2 81.3 - 96.4 fL [facility] Comment:MCV delta due to sage arent blood transfusion. Spoke with Genaro Hawkins(RN) @1250 MCH 30.6 27.1 - 33.3 pg [facility] MCHC 32.9 32.3 - 35.7 g/dL [facility] RDW CV 14.4 11.1 - 14.9 % [facility] RDW SD 47.8 35.7 - 48.1 fL [facility] NRBC abs 0.90(H) 0.00 - 0.01 K/cumm NICOLE Blood 10/16/2024 12:0 4 PM CDT 10/16/2024 12:08 PM CDT us Guillermo Mayes MD LAB BLOOD ORDERABLES Final R esult NICOLE [id number] Jose Manuel [place] [address] * Arterial Line Insertion (10/16/2024 11:42 AM CDT) Narrative Dani Quintero MD - 10/16/2024 11:42 AM CDT Dani Quintero MD 10/16/2024 2:43 PM Arterial Line Insertion Date/Time: 10/16/2024 11:42 AM Performed by: Naty Dunbar DO Authorized by: Naty Dunbar DO [place] Protocol: RN Notified of Procedure: yes Informed [...] Dunbar DO Authorized by: Naty Dunbar DO [place] Protocol: RN Notified of Procedure: yes Informed [...] are accounted for: yes Naty Dunbar DO IN CLINIC/BEDSIDE ORDE RABLES Final Result * (ABNORMAL) Urinalysis reflex to [...] tendency for uric acid stone formation. Source: [facility] Current Interpretive Data was last revised on [...] to microscopic UA will be performed. CERNER Urine, clean voided 10/16/2024 11:30 AM CDT 10/16/2024 11:35 AM CDT Roopa Yeboah NP LAB MICROBIOLOGY - GEN ERAL ORDERABLES Final Result [facility] [address] Department [place] [address] * (ABNORMAL) Urinalysis, microscopic only (10/16/2024 11:30 AM CDT) WBC, ur 6-10(A) 0 - 5 /HPF RBC, ur >50(A) 0 - 2 /HPF CERNER Epithelial cells, squamous, ur 1-5 0 - 5 /HPF CERNER Bacteria, ur Trace(A) CERNER Mucous, ur Present(A) CERNER Calcium oxalate crystals, ur 2+(A) CERNER CH Hyaline casts, ur 1-5 0 - 10 /LPF CERNER CH Culture Reflex Comment Reflex conditions for urine culture (WBC >10) not met. CERNER Urine, clean voided 10/16/2024 11:30 AM CDT 10/16/2024 11:35 AM CDT Roopa Apolonia Doubek F[employer] STACK PYTHON DEVELOPER LAB URINE ORDERABLES F inal Result Performing Organization Address [facility] de Phone Number NICOLE RAYGOZA [phone] [address] [facility] [place] [address] * Infection Prevention MRSA Only (Staphylococcus aureus) PCR Nasal (10/16/2024 11:03 AM CDT) PCR Scrn, Methicillin resistant Staphylococcus aureus (MRSA) Not Detected Not Detected CH Comment: Interpretive Data Testing performed using Nucleic Acid Amplification with the Cubicl Xpert MRSA NxG Assay. This assay detects target DNA from mecA, mecC and the SCCmec insertion site of Staphylococcus aureus using Real-Time PCR and has been cleared by the FDA. Performance characteristics have been verified by the [facility]. Current Interpretive Data was last revised on 2022 Nasal 10/16/2024 11:0 3 AM CDT 10/16/2024 11:39 AM CDT Angelica Hagan NP LAB MICROBIOLOGY - GENERAL ORDERABLES Final Result Performing Organization Address [facility] de Phone Number NICOLE RAYGOZA [address] [address] [facility] [place] [address] CH * Prepare RBC: 1 Units (10/16/2024 10:37 AM CDT) Pathologist [facility] Product code [id number] Unit Number [id number] [facility] Product Blood Type OPOS [facility] Dispense Status PRESUMED TRANSFUSED [facility] Blood 10/16/2024 10:3 7 AM CDT Narrative [facility] - 10/16/2024 10:15 PM CDT Are special requirements needed? (All products are leukoreduced and CMV- safe)- >No Date required:-20241016 LRRBC # of [id number] Reasons:-Active bleeding, Hgb <8 g/dL} Angelica Hagan NP BLOOD BANK PRODUCT ORDERABL ES Final Result Performing Organization Address [facility] de Phone Number NICOLE RAYGOZA [address] Department [place] [address] * (ABNORMAL) POC Blood Gas and Chemistries, Arterial - (10/16/2024 10:02 AM CDT) pH, Art POC 7.32(L) 7.35 - 7.45 [...] ORDERABLES - DEVICE Final Result NICOLE RAYGOZA [address] [address] Department [place] [address] * (ABNORMAL) Lactate (10/16/2024 10:01 AM CDT) Lactate 10.5(C) 0.7 - 2.0 mmol/L Comment:Critical result call ed to and read back by Roopa Galeana RN_ (_) on 10/16/2024 10:12:28 CDT to fareed santana. Blood 10/16/2024 10:0 1 AM CDT 10/16/2024 10:04 AM CDT Roopa eYboah F[employer] ST[employer] PYTHON DEVELOPER LAB BLOOD ORDERABLES F inal Result Performing Organization Address [facility] Co de Phone Number NICOLE [place] [address] [address] [place] [address] * (ABNORMAL) eGFR (10/16/2024 10:01 AM CDT) [...] NP LAB BLOOD ORDERABLES F inal Result Performing Organization Address City/[facility]/ZIP Co de Phone Number NICOLE RAYGOZA [address] [address] Department [place] [address] * Blood culture Blood (10/16/2024 10:01 AM CDT) Report Final Report: No growth Comment:Testing performed by : [facility], [address], [place]., [address] Blood 10/16/2024 10:0 1 AM CDT 10/16/2024 [...] performance characteristics have been verified by the [facility] Microbiology Laboratory. For questions about this culture, contact the Microbiology Laboratory at [phone]. Interpretive data was last revised on 24. Roopa Yeboah NP LAB MICROBIOLOGY - GEN ERAL ORDERABLES Final Result NICOLE RAYGOZA [address] [address] Department [place] [address] * (ABNORMAL) aPTT (10/16/2024 10:01 AM CDT) [...] Final Result Performing Organization Address [facility] Co de Phone Number [facility] [address] [address] Department [place] [address] * (ABNORMAL) Protime-INR (10/16/2024 10:01 AM CDT) PT 17.1(H) 9.7 - 13.0 sec INR 1.57(H) 0.90 - 1.20 NICOLE Comment: Interpretive data [...] Final Result Performing Organization Address [facility] Co de Phone Number NICOLE [address] [address] [place] [address] * Type and screen (10/16/2024 10:01 AM CDT) Nani, indirect Negative ABO Rh O Positive NICOLE Blood 10/16/2024 10:0 1 AM CDT 10/16/2024 10:07 AM CDT Narrative NICOLE RAYGOZA - 10/16/2024 11:01 AM CDT Has the patient had Daratumumab or Isatuximab in the past 6 months?->Unknown Angelica Hagan NP LAB BLOOD BANK TEST ORDERAB LES Final Result Performing Organization Address [facility]/ZIP Co de Phone Number NICOLE RAYGOZA [address] [address] Department [place] [address] * Direct antiglobulin test (10/16/2024 10:01 AM CDT) Direct Nani BS Interpretation Negative Blood 10/16/2024 10:0 1 AM CDT 10/18/2024 7:18 AM CDT Jonathan Rodriguez MD LAB BLOOD BANK TEST ORDERABLES Final Result Performing Organization Address [facility] Phone Number NICOLE RAYGOZA [address] [address] [facility] [place] [address] * (ABNORMAL) Blood gas, arterial (10/16/2024 10:01 [...] Final Result Performing Organization Address [facility] Co de Phone Number NICOLE RAYGOZA [address] [address] Department [place] [address] * (ABNORMAL) Basic metabolic panel (10/16/2024 10:01 AM CDT) Sodium 136 135 - 145 mmol/L Potassium, pl 5.6(H) 3.3 - 4.9 mmol/L [facility] Chloride 97 97 - 110 mmol/L [facility] CO2 14(L) 22 - 32 mmol/L CERNER CH Anion gap 25(H) 2 - 15 mmol/L CERNER BUN 78(H) 6 - 25 mg/dL [facility] Creatinine 2.50(H) 0.80 - 1.30 mg/dL [facility] Comment:Icteric sample, test results may be affected. Glucose 122 70 - 199 mg/dL [facility] Comment: Interpretive Data Fasting glucose >/= 126 [...] 2022. Calcium 8.0(L) 8.5 - 10.3 mg/dL [facility] Blood 10/16/2024 10:0 1 AM CDT 10/16/2024 10:05 AM CDT us Roopa Yeboah F[employer] ST[employer] PYTHON DEVELOPER LAB BLOOD ORDERABLES F inal Result [address] Department of Laboratories [place] [id number] * TRANSTHORACIC ECHO (TTE) LIMITED/FOLLOW UP W LTD DOPPLER/CF WO CONTRAST (10/16/2024 9:35 AM CDT) Anatomical Region Laterality Modality Ultrasound 10/16/2024 8:12 AM CDT Narrative 10/16/2024 9:39 AM CDT [facility] [id number] [place] [address] Limited Echocardiogram Report Patient Name: TREVOR SHAW : 1945 Study Date: 10/16/2024 8:12:00 AM Gender: M Tech: Location: [id number] Ref Provider: ANGELICA HAGAN Height(Cm): 182 BSA: [...] Procedure Note Shaila Fuentes MD - 10/16/2024 [place] [address] Limited Echocardiogram Report Patient Name: TREVOR SHAW : 1945 Study Date: 10/16/2024 8:12:00 AM Gender: M Tech: Location: [id number] Ref Provider: ANGELICA HAGAN Height(Cm): 182 BSA: [...] Units (10/16/2024 9:08 AM CDT) Product code [id number] Unit Number [id number] [facility] Product Blood Type OPOS [facility] Dispense Status PRESUMED TRANSFUSED [facility] Blood 10/16/2024 9:08 AM CDT Narrative [facility] - 10/16/2024 10:15 PM CDT Are special requirements needed? (All products are leukoreduced and CMV- safe)- >No Date required:-20241016 LRRBC # of [id number] Reasons:-Cardiovascular disease, Hgb <8 g/dL} Angelica Hagan NP BLOOD BANK PRODUCT ORDERABL ES Final Result NICOLE RAYGOZA [address] [address] [place] [address] * CT Chest Abdomen Pelvis WO Contrast [...] abnormality. Electronically signed by: Richie Cox M.D. Angelica Hagan FULL STACK PYTHON DEVELOPER IMG CT PROCEDURES Final Res ult * [...] 8:36 AM CDT 10/16/2024 8:36 AM CDT Guillermo Mayes MD LAB POCT ORDERABLES - DEVICE Final Result Performing Organization Address [facility] Co de Phone Number NICOLE [address] [place] [address] * POCT glucose (10/16/2024 8:24 AM CDT) [facility] Glucose, POC 136 70 - 199 mg/dL Blood 10/16/2024 8:24 AM CDT 10/16/2024 8:24 AM CDT Guillermo Mayes MD LAB POCT ORDERABLES - DEVICE Final Result Performing Organization Address [facility] Co de Phone Number [facility] [address] [address] [place] [address] * (ABNORMAL) eGFR (10/16/2024 5:14 AM CDT) [...] us Yvette Russell NP LAB BLOOD ORDERABLES [facility] al Result [facility] [address] [address] [place] [address] * (ABNORMAL) CBC without differential (10/16/2024 5:14 AM CDT) Pathologist [facility] WBC 19.8(H) 3.8 - 9.9 K/cumm Hgb 7.9(L) 13.0 - 17.5 g/dL [facility] Hct 26.4(L) 38.9 - 50.3 % [facility] Plt 229 150 - 400 K/cumm [facility] MPV 12.1 9.1 - 12.3 fL [facility] RBC 2.47(L) 4.30 - 5.80 M/cumm [facility] MCV 106.9(H) 81.3 - 96.4 fL [facility] Comment:MCV delta possibly d ue to low sample volume. MCH 32.0 27.1 - 33.3 pg CERNER CH MCHC 29.9(L) 32.3 - 35.7 g/dL CERNER CH RDW CV 14.8 11.1 - 14.9 % CERNER CH RDW SD 56.7(H) 35.7 - 48.1 fL C[facility]ER CH NRBC abs 0.78(H) 0.00 - 0.01 K/cumm C[facility]ER CH Blood 10/16/2024 5:14 AM CDT 10/16/2024 6:08 AM CDT us Guillermo Mayes MD LAB BLOOD ORDERABLES Final R esult [facility] [address] [address] [place] [address] * (ABNORMAL) Basic metabolic panel (10/16/2024 5:14 AM CDT) Sodium 136 135 - 145 mmol/L Potassium, pl 5.4(H) 3.3 - 4.9 mmol/L CERNER CH Chloride 99 97 - 110 mmol/L [facility] CH CO2 11(L) 22 - 32 mmol/L [facility] CH Anion gap 26(H) 2 - 15 mmol/L C[facility] CH BUN 75(H) 6 - 25 mg/dL [facility] CH Creatinine 2.11(H) 0.80 - 1.30 mg/dL [facility] CH Glucose 105 70 - 199 mg/dL CERNER CH Comment: [...] 2022. Calcium 8.8 8.5 - 10.3 mg/dL CERNER CH Blood 10/16/2024 5:14 AM CDT 10/16/2024 6:07 AM CDT Guillermo Mayes MD LAB BLOOD ORDERABLES Final R esult NICOLE RAYGOZA [address] [address] [place] [address] * XR Chest 1 View - Portable [...] COMPARISON: 10/25/2024. Procedure Note Jj Grubbs II, DO - 10/16/2024 EXAMINATION: XR CHEST 1 VIEW [...] MD LAB BLOOD ORDERABLES Final R esult [facility] [address] [address] [place] [address] * (ABNORMAL) CBC without differential (10/15/2024 1:32 PM CDT) WBC 14.9(H) 3.8 - 9.9 K/cumm Hgb 8.4(L) 13.0 - 17.5 g/dL [facility] Hct 26.4(L) 38.9 - 50.3 % [facility] Plt 240 150 - 400 K/cumm [facility] MPV 12.0 9.1 - 12.3 fL [facility] RBC 2.76(L) 4.30 - 5.80 M/cumm [facility] MCV 95.7 81.3 - 96.4 fL [facility] MCH 30.4 27.1 - 33.3 pg [facility] MCHC 31.8(L) 32.3 - 35.7 g/dL CERNER CH RDW CV 14.6 11.1 - 14.9 % CERNER CH RDW SD 49.9(H) 35.7 - 48.1 fL [facility] NRBC abs 0.52(H) 0.00 - 0.01 K/cumm CERNER Blood 10/15/2024 1:32 PM CDT 10/15/2024 1:32 PM CDT Guillermo Mayes MD LAB BLOOD ORDERABLES Final R esult NICOLE RAYGOZA [address] [address] Department [place] [address] * (ABNORMAL) Basic metabolic panel (10/15/2024 1:32 PM CDT) [facility] Sodium 139 135 - 145 mmol/L Potassium, pl 4.6 3.3 - 4.9 mmol/L [facility] Chloride 102 97 - 110 mmol/L [facility] CH CO2 19(L) 22 - 32 mmol/L CERNER CH Anion gap 18(H) 2 - 15 mmol/L [facility] CH BUN 62(H) 6 - 25 mg/dL [facility] Creatinine 1.56(H) 0.80 - 1.30 mg/dL C[facility]ER Glucose 140 70 - 199 mg/dL [facility] Comment: Interpretive Data Fasting glucose >/= 126 [...] 2022. Calcium 9.2 8.5 - 10.3 mg/dL [facility] Blood 10/15/2024 1:32 PM CDT 10/15/2024 1:32 PM CDT Guillermo Mayes MD LAB BLOOD ORDERABLES Final R esult Performing Organization Address City/[facility]/ZIP Co de Phone Number NICOLE RAYGOZA [address] [address] Department [place] [address] * POCT glucose (10/15/2024 11:55 AM CDT) Glucose, POC 134 70 - 199 mg/dL Blood 10/15/2024 11:5 5 AM CDT 10/15/2024 11:55 AM CDT Guillermo Mayes MD LAB POCT ORDERABLES - DEVICE Final Result NICOLE [address] [facility] [place] [address] * XR Chest 1 View [...] * ECG 12 lead (10/15/2024 1:15 AM SPRINKLER DRIVER) 10/15/2024 1:15 AM SPRINKLER DRIVER Narrative [facility] - 10/15/2024 11:28 AM CDT Vent Rate: 106 bpm RR Interval: 564 msec MS Interval: 0 msec QRS Duration: 101 msec QT Interval: 342 msec QTC Interval: 404 msec P-R-T Dawn: 0 - 12 - 88 degrees IMPRESSION: POSSIBLE SINUS TACHYCARDIA ST ELEVATION, PROBABLY EARLY REPOLARIZATION NONSPECIFIC ST \T\ T-WAVE ABNORMALITY ABNORMAL RHYTHM ECG CONDUCTION DELAY HAS IMPROVED Electronically Signed By: Shaila Fuentes MD us Teresa Knox MD ECG ORDERABLES Final Result Performing Organization Address City/[facility] Co de Phone Number [facility] * POCT glucose (10/14/2024 8:35 PM SPRINKLER DRIVER) Glucose, POC 147 70 - 199 mg/dL Blood 10/14/2024 8:35 PM SPRINKLER DRIVER 10/14/2024 8:35 PM SPRINKLER DRIVER us Guillermo Mayes MD LAB POCT ORDERABLES - DEVICE Final Result Performing Organization Address [facility] Co de Phone Number [facility] [address] [facility] Department [place] [address] * TRANSTHORACIC ECHO (TTE) COMPLETE W DOPPLER/CF WO CONTRAST (10/14/2024 9:52 AM SPRINKLER DRIVER) Pathologist [facility] LV EF 55 % CONS SCIMAGE Anatomical Region Laterality Modality Ultrasound 10/14/2024 7:18 AM SPRINKLER DRIVER Narrative 10/14/2024 11:25 AM [place] [address] Echocardiogram Report Patient Name: TREVOR SHAW : 1945 Study Date: 10/14/2024 7:18:19 AM Gender: M Tech: [place] Location: [id number] Ref Provider: MIGDALIA SALCEDO Height(Cm): 183 BSA: [...] regurgitation. Electronically Signed By: Dr. Tracey Drew [facility] 10/14/2024 11:24:11 AM SPRINKLER DRIVER Procedure Note Tracey Drew MD - 10/14/2024 [place] [address] Echocardiogram Report Patient Name: TREVOR SHAW : 1945 Study Date: 10/14/2024 7:18:19 AM Gender: M Tech: [place] Location: [id number] Ref Provider: MATIASMIGDALIA ANSARI Height(Cm): 183 BSA: 2.44 Weight(Kg): 117 Heart Rate: 94 BP: 128 / 73 Quality: Technically Difficult Study Order Provider: MATIASMIGDALIA PROCEDURES: Echocardiographic Report: Transthoracic echocardiogram with complete [...] regurgitation. Electronically Signed By: Dr. Tracey Drew [facility] 10/14/2024 11:24:11 AM SPRINKLER DRIVER us Migdalia Salcedo NP CV ECHO PROCEDURES Final R esult * POCT glucose (10/14/2024 7:57 AM SPRINKLER DRIVER) Glucose, POC 118 70 - 199 mg/dL Blood 10/14/2024 7:57 AM SPRINKLER DRIVER 10/14/2024 7:57 AM SPRINKLER DRIVER us Guillermo Mayes MD LAB POCT ORDERABLES - DEVICE Final Result NICOLE RAYGOZA [address] Department [place] [address] * XR Chest 1 View - Portable - in AM (10/14/2024 6:00 AM SPRINKLER DRIVER) Anatomical Region Laterality Modality Body, Chest N/A Computed Radiogr aphy 10/14/2024 7:54 AM SPRINKLER DRIVER Impressions 10/14/2024 7:54 AM SPRINKLER DRIVER Pacer leads are intact. Right IJ central venous catheter terminates in the superior cavoatrial junction. No pneumothorax or pleural effusion. Mediastinal silhouette within normal limits. Poststernotomy changes noted. Mild pulmonary vascular congestion. Electronically signed by: Jj Grubbs II, D.O. Narrative 10/14/2024 7:54 AM SPRINKLER DRIVER EXAMINATION: XR CHEST 1 VIEW DATE: 10/14/2024 [...] lt * (ABNORMAL) eGFR (10/14/2024 5:20 AM SPRINKLER DRIVER) eGFR 56(L) >=60 mL/min/1. 73 m2 Comment: [...] last reviewed 2021. Blood 10/14/2024 5:20 AM SPRINKLER DRIVER 10/14/2024 5:30 AM SPRINKLER DRIVER us Yvette Russell NP LAB BLOOD ORDERABLES Fin al Result [facility] [address] [address] [place] [address] * (ABNORMAL) CBC without differential (10/14/2024 5:20 AM SPRINKLER DRIVER) WBC 10.5(H) 3.8 - 9.9 K/cumm Hgb 8.2(L) 13.0 - 17.5 g/dL C[facility] Hct 24.8(L) 38.9 - 50.3 % [facility] Plt 192 150 - 400 K/cumm [facility] MPV 11.5 9.1 - 12.3 fL [facility] RBC 2.68(L) 4.30 - 5.80 M/cumm [facility] MCV 92.5 81.3 - 96.4 fL [facility] MCH 30.6 27.1 - 33.3 pg C[facility]ER MCHC 33.1 32.3 - 35.7 g/dL [facility] CH RDW CV 14.5 11.1 - 14.9 % [facility] CH RDW SD 48.3(H) 35.7 - 48.1 fL [facility] NRBC abs 0.04(H) 0.00 - 0.01 K/cumm [facility] Blood 10/14/2024 5:20 AM SPRINKLER DRIVER 10/14/2024 5:30 AM SPRINKLER DRIVER Guillermo Mayes MD LAB BLOOD ORDERABLES Final R esult [facility] [address] [address] [place], [place] [id number] * Magnesium (10/14/2024 5:20 AM SPRINKLER DRIVER) Pathologist [facility] Magnesium 2.2 1.4 - 2.5 mg/dL Blood 10/14/2024 5:20 AM SPRINKLER DRIVER 10/14/2024 5:30 AM SPRINKLER DRIVER Yvette Russell NP LAB BLOOD ORDERABLES Fin al Result Performing Organization Address [facility] Co de Phone Number [facility] [address] [place] [address] * (ABNORMAL) Basic metabolic panel (10/14/2024 5:20 AM SPRINKLER DRIVER) Pathologist [facility] Sodium 140 135 - 145 mmol/L Potassium, pl 4.1 3.3 - 4.9 mmol/L [facility] Chloride 104 97 - 110 mmol/L [facility] CO2 21(L) 22 - 32 mmol/L [facility] Anion gap 15 2 - 15 mmol/L [facility] BUN 46(H) 6 - 25 mg/dL [facility] Creatinine 1.30 0.80 - 1.30 mg/dL [facility] Glucose 146 70 - 199 mg/dL [facility] Comment: Interpretive Data Fasting glucose >/= 126 [...] 2022. Calcium 9.1 8.5 - 10.3 mg/dL NICOLE Blood 10/14/2024 5:20 AM SPRINKLER DRIVER 10/14/2024 5:30 AM SPRINKLER DRIVER Guillermo Mayes MD LAB BLOOD ORDERABLES Final R esult Performing Organization Address [facility] Co de Phone Number NICOLE [address] [place] [address] * POCT glucose (10/13/2024 8:21 PM SPRINKLER DRIVER) Glucose, POC 156 70 - 199 mg/dL Blood 10/13/2024 8:21 PM SPRINKLER DRIVER 10/13/2024 8:21 PM SPRINKLER DRIVER Guillermo Mayes MD LAB POCT ORDERABLES - DEVICE Final Result Performing Organization Address [facility] Co de Phone Number [facility] [address] [place] [address] * POCT glucose (10/13/2024 5:27 PM SPRINKLER DRIVER) Glucose, POC 118 70 - 199 mg/dL Blood 10/13/2024 5:27 PM SPRINKLER DRIVER 10/13/2024 5:27 PM SPRINKLER DRIVER Guillermo Mayes MD LAB POCT ORDERABLES - DEVICE Final Result Performing Organization Address [facility] Co de Phone Number NICOLE [address] [address] [facility] [place] [address] * XR Chest 1 Vw Portable (10/13/2024 4:35 PM SPRINKLER DRIVER) Anatomical Region Laterality Modality Body, Chest N/A Computed Radiogr aphy 10/13/2024 4:38 PM SPRINKLER DRIVER Impressions 10/13/2024 4:38 PM SPRINKLER DRIVER No pneumothorax. Electronically signed by: Elena Bower M.D. Narrative 10/13/2024 4:38 PM SPRINKLER DRIVER EXAMINATION: XR CHEST 1 VIEW HISTORY: The [...] failure. The distal tip of a retracted Racine-Fausto catheter is in the superior vena cava. [...] failure. The distal tip of a retracted Racine-Fausto catheter is in the superior vena cava. IMPRESSION: No pneumothorax. Electronically signed by: Elena Bower M.D. Teresa Knox MD IMG XR PROCEDURES Kamla l Result * ICD LEAD DUAL 2 LEADS PPM OR ICD (10/13/2024 3:51 PM SPRINKLER DRIVER) Anatomical Region Laterality Modality X-Ray Angiograph y 10/13/2024 Narrative 10/19/2024 1:49 PM CDT [employer] Job ID: [id number] [employer] Document ID: [id number] Dictated date/time: [id number] PACEMAKER IMPLANTATION An 79-year-old patient, status post CABG and AVR, has developed episodes of PAF and asystole. Dual-chamber pacemaker recommended. REFERRING PHYSICIANS Dr. Flaca Giles and Dr. Mayes. IMPLANTING PHYSICIAN Dr. Knox. PROCEDURES 1. Implantation of a dual-chamber pacemaker system by [employer]. 2. Venogram. 3. Insertion of a Tyrx pouch. PROCEDURE He was brought to the confectionery laboratory manager. Left neck subclavicular was prepped in the usual sterile fashion. 1% lidocaine with epi was used. Venogram obtained. Pacemaker pocket was created. Access obtained axillary subclavian vein. Two J wires were advanced over which a 7 SafeSheath and a 6 SafeSheath were advanced. Both the sheaths were flushed confirming venous return. Through the 7 sheath a Medtronic ventricular pacing lead, [id number] was advanced to the RV apex, low ventricular septum and screwed in place. Through the second sheath, a [employer]tronic atrial pacing lead [id number] was advanced to the atrial appendage and screwed in place. Thresholds: Atrium 0.4 milliseconds, 0.625 V, 342 ohms, 2 mV. Ventricle 0.4 millisecond, 0.5 V, 798 ohms, 12.2 mV. No extracardiac stimulation with 10 V cardiac pacing stimulus in either chambers. The leads were secured to subcutaneous tissues using 0 Ethibond, connected to a pacemaker generator from [employer] [id number] noted to be pacing and sensing appropriately. [...] pouch. 3. Venogram. Job ID/Internal Job ID: [id number] us Brittonmary Larson NP CV ELECTROPHYSIOLOGY PROCS F inal Result * POCT glucose (10/13/2024 12:45 PM SPRINKLER DRIVER) Glucose, POC 120 70 - 199 mg/dL Blood 10/13/2024 12:4 5 PM SPRINKLER DRIVER 10/13/2024 12:45 PM SPRINKLER DRIVER us Guillermo Mayes MD LAB POCT ORDERABLES - DEVICE Final Result Performing Organization Address [facility] Co de Phone Number NICOLE [address] [facility] Department [place] [address] * ECG 12 lead (10/13/2024 11:59 AM SPRINKLER DRIVER) 10/13/2024 11:5 9 AM SPRINKLER DRIVER Narrative [facility] - 10/13/2024 3:23 PM SPRINKLER DRIVER Vent Rate: 113 bpm RR Interval: 527 msec MS Interval: 160 msec QRS Duration: 134 msec QT Interval: 351 msec QTC Interval: 418 msec P-R-T Dawn: 68 - -11 - 69 degrees IMPRESSION: SINUS TACHYCARDIA INTRAVENTRICULAR CONDUCTION DELAY [130+ ms QRS DURATION] ABNORMAL ECG NO CHANGE FROM PREVIOUS TRACING NOTED Electronically Signed By: Jeffrey Li MD us Carmen Peñaloza NP ECG ORDERABLES Final Result Performing Organization Address [facility] de Phone Number [facility] [employer] [facility] * ECG 12 lead (10/13/2024 9:36 AM SPRINKLER DRIVER) 10/13/2024 9:36 AM SPRINKLER DRIVER Narrative [facility] - 10/13/2024 11:18 AM SPRINKLER DRIVER Vent Rate: 107 bpm RR Interval: 557 msec MS Interval: 109 msec QRS Duration: 141 msec QT Interval: 445 msec QTC Interval: 508 msec P-R-T Dawn: -9 - 99 - 111 degrees IMPRESSION: ELECTRONIC ATRIAL PACEMAKER BORDERLINE RIGHT AXIS DEVIATION [QRS AXIS > 90] INTRAVENTRICULAR CONDUCTION DELAY [130+ ms QRS DURATION] INFERIOR MYOCARDIAL INFARCTION , POSSIBLY ACUTE [40+ ms Q WAVE AND/OR ST/T ABNORMALITY IN II/aVF] MARKED ST ELEVATION, CONSIDER ANTEROSEPTAL INJURY [MARKED ST ELEVATION W/O NORMALLY INFLECTED T-WAVE IN V1-V4] ACUTE MS PACER ACTIVITY NEW ST ELEVATIONS MORE MARKED Electronically Signed By: Kacy Knox MD us Migdalia Salcedo FULL STACK PYTHON DEVELOPER ECG ORDERABLES Final Resu lt [facility] * POCT glucose (10/13/2024 7:56 AM SPRINKLER DRIVER) Glucose, POC 114 70 - 199 mg/dL Blood 10/13/2024 7:56 AM SPRINKLER DRIVER 10/13/2024 7:56 AM SPRINKLER DRIVER us Guillermo Mayes MD LAB POCT ORDERABLES - DEVICE Final Result Performing Organization Address City/[facility] Co de Phone Number NICOLE [address] [address] Department [place] [address] * XR Chest 1 View - Portable - in AM (10/13/2024 6:24 AM SPRINKLER DRIVER) Anatomical Region Laterality Modality Body, Chest N/A Computed Radiogr aphy 10/13/2024 8:40 AM SPRINKLER DRIVER Impressions 10/13/2024 8:40 AM SPRINKLER DRIVER No failure. Electronically signed by: Elena Bower M.D. Narrative 10/13/2024 8:40 AM SPRINKLER DRIVER EXAMINATION: XR CHEST 1 VIEW HISTORY: The patient is an 79-year-old male who has had cardiac surgery. Comparison is made with the previous study dated 10/12/2024. TECHNIQUE: AP portable view of the chest. FINDINGS: Borderline cardiomegaly with aortic atherosclerosis. No failure. Subsegmental atelectasis is seen in the left upper lobe with the remaining lungs being clear. The distal tip of a retracted Racine-Fausto catheter is in the superior vena cava. [...] clear. The distal tip of a retracted Racine-Fausto catheter is in the superior vena cava. IMPRESSION: No failure. Electronically signed by: Elena Bower M.D. us Guillermo Mayes MD IMG XR PROCEDURES Final Resu lt * eGFR (10/13/2024 5:50 AM SPRINKLER DRIVER) eGFR 61 >=60 mL/min/1. 73 m2 Comment: [...] data was last reviewed 2021. Blood 10/13/2024 5:50 AM SPRINKLER DRIVER 10/13/2024 5:50 AM SPRINKLER DRIVER us Yvette Russell NP LAB BLOOD ORDERABLES Fin al Result NICOLE [address] [address] Department [place] [address] * aPTT (10/13/2024 5:50 AM SPRINKLER DRIVER) aPTT 28 28 - 38 sec Comment: Interpretive Data Heparin therapeutic range: 66.0 - 100.0 seconds. Range based on correlation with therapeutic heparin activity range of 0.3 - 0.7 Units/mL. Current interpretive data was last revised on 2023. Blood 10/13/2024 5:50 AM SPRINKLER DRIVER 10/13/2024 5:50 AM SPRINKLER DRIVER Migdalia Salcedo LAB BLOOD ORDERABLES Final Result Performing Organization Address [facility] de Phone Number NICOLE [address] [address] [facility] [place] [address] * Protime-INR (10/13/2024 5:50 AM SPRINKLER DRIVER) PT 12.1 9.7 - 13.0 sec INR 1.12 0.90 - 1.20 [facility] Comment: Interpretive data Oral anticoagulant therapeutic ranges: Venous thromboembolism prophylaxis or treatment: 2.0-3.0 CARDIOLOGY Standard range: 2.0-3.0 High-intensity range: 2.5-3.5 Refer to indication-specific guidelines for appropriate target ranges for prosthetic heart valve replacement. Current interpretive data was last revised on 2019. Blood 10/13/2024 5:50 AM SPRINKLER DRIVER 10/13/2024 5:50 AM SPRINKLER DRIVER [facility] LAB BLOOD ORDERABLES Final Result Performing Organization Address [facility] de Phone Number LORINACE RAYGOZA [address] [address] [facility] [place] [address] * (ABNORMAL) CBC without differential (10/13/2024 5:50 AM SPRINKLER DRIVER) WBC 8.6 3.8 - 9.9 K/cumm Hgb 8.1(L) 13.0 - 17.5 g/dL [facility] Hct 24.7(L) 38.9 - 50.3 % [facility] Plt 135(L) 150 - 400 K/cumm [facility] MPV 12.0 9.1 - 12.3 fL [facility] RBC 2.68(L) 4.30 - 5.80 M/cumm [facility] MCV 92.2 81.3 - 96.4 fL [facility] MCH 30.2 27.1 - 33.3 pg [facility] MCHC 32.8 32.3 - 35.7 g/dL [facility] RDW CV 14.4 11.1 - 14.9 % [facility] RDW SD 48.3(H) 35.7 - 48.1 fL [facility] NRBC abs 0.00 0.00 - 0.01 K/cumm [facility] Blood 10/13/2024 5:50 AM SPRINKLER DRIVER 10/13/2024 5:50 AM SPRINKLER DRIVER Guillermo Mayes MD LAB BLOOD ORDERABLES Final R esult Performing Organization Address City/[facility]/ZIP Co de Phone Number [facility] [address] [address] Department [place] [address] * Magnesium (10/13/2024 5:50 AM SPRINKLER DRIVER) [facility] Magnesium 2.2 1.4 - 2.5 mg/dL Blood 10/13/2024 5:50 AM SPRINKLER DRIVER 10/13/2024 5:50 AM SPRINKLER DRIVER Yvette Russell NP LAB BLOOD ORDERABLES Fin al Result Performing Organization Address [facility] de Phone Number [facility] [address] [address] Department [place] [address] * (ABNORMAL) Basic metabolic panel (10/13/2024 5:50 AM SPRINKLER DRIVER) Pathologist [facility] Sodium 140 135 - 145 mmol/L Potassium, pl 3.6 3.3 - 4.9 mmol/L [facility] Chloride 105 97 - 110 mmol/L [facility] CO2 23 22 - 32 mmol/L [facility] Anion gap 12 2 - 15 mmol/L [facility] BUN 37(H) 6 - 25 mg/dL [facility] Creatinine 1.20 0.80 - 1.30 mg/dL [facility] Glucose 136 70 - 199 mg/dL [facility] Comment: Interpretive Data Fasting glucose >/= 126 [...] 2022. Calcium 9.1 8.5 - 10.3 mg/dL [facility] Blood 10/13/2024 5:50 AM SPRINKLER DRIVER 10/13/2024 5:50 AM SPRINKLER DRIVER Guillermo Mayes MD LAB BLOOD ORDERABLES Final R esult Performing Organization Address [facility] Co de Phone Number [facility] [address] [address] [facility] [place] [address] * POCT glucose (10/12/2024 9:59 PM SPRINKLER DRIVER) Glucose, POC 125 70 - 199 mg/dL Blood 10/12/2024 9:59 PM SPRINKLER DRIVER 10/12/2024 9:59 PM SPRINKLER DRIVER Guillermo Mayes MD LAB POCT ORDERABLES - DEVICE Final Result Performing Organization Address [facility] Phone Number [facility] [address] [address] [facility] [place] [address] * POCT glucose (10/12/2024 9:27 PM SPRINKLER DRIVER) Glucose, POC 137 70 - 199 mg/dL Blood 10/12/2024 9:27 PM SPRINKLER DRIVER 10/12/2024 9:27 PM SPRINKLER DRIVER Guillermo Mayes MD LAB POCT ORDERABLES - DEVICE Final Result Performing Organization Address [facility] Co ks Phone Number [facility] [address] [address] [facility] [place] [address] * POCT glucose (10/12/2024 5:44 PM SPRINKLER DRIVER) Glucose, POC 115 70 - 199 mg/dL Blood 10/12/2024 5:44 PM SPRINKLER DRIVER 10/12/2024 5:44 PM SPRINKLER DRIVER Guillermo Mayes MD LAB POCT ORDERABLES - DEVICE Final Result Performing Organization Address [facility] Co de Phone Number NICOLE [address] [address] [facility] [place] [address] * POCT glucose (10/12/2024 1:00 PM SPRINKLER DRIVER) Glucose, POC 140 70 - 199 mg/dL Blood 10/12/2024 1:00 PM SPRINKLER DRIVER 10/12/2024 1:00 PM SPRINKLER DRIVER Guillermo Mayes MD LAB POCT ORDERABLES - DEVICE Final Result Performing Organization Address [facility] [place] [address] [address] [facility] [place] [address] * POCT glucose (10/12/2024 7:53 AM SPRINKLER DRIVER) Glucose, POC 131 70 - 199 mg/dL Blood 10/12/2024 7:53 AM SPRINKLER DRIVER 10/12/2024 7:53 AM SPRINKLER DRIVER Guillermo Mayes MD LAB POCT ORDERABLES - DEVICE Final Result Performing Organization Address [facility] [place] [address] [address] [facility] [place] [address] * XR Chest 1 View - Portable - in AM (10/12/2024 6:11 AM SPRINKLER DRIVER) Anatomical Region Laterality Modality Body, Chest N/A Computed Radiogr aphy 10/12/2024 8:39 AM SPRINKLER DRIVER Impressions 10/12/2024 8:39 AM SPRINKLER DRIVER Cardiomegaly with no failure. Electronically signed by: Elena Bower M.D. Narrative 10/12/2024 8:39 AM SPRINKLER DRIVER EXAMINATION: XR CHEST 1 VIEW HISTORY: The [...] pneumothorax. The distal tip of the retracted Racine-Fausto catheter is in the superior vena cava. [...] pneumothorax. The distal tip of the retracted Racine-Fausto catheter is in the superior vena cava. IMPRESSION: Cardiomegaly with no failure. Electronically signed by: Elena Bower M.D. Guillermo Mayes MD IMG XR PROCEDURES Final Resu lt * eGFR (10/12/2024 4:30 AM SPRINKLER DRIVER) eGFR 62 >=60 mL/min/1. 73 m2 Comment: [...] last reviewed 2021. Blood 10/12/2024 4:30 AM SPRINKLER DRIVER 10/12/2024 5:11 AM SPRINKLER DRIVER us Yvette Russell NP LAB BLOOD ORDERABLES Fin al Result Performing Organization Address City/[facility] Co de Phone Number LORINACE RAYGOZA [address] [address] [place] [address] * (ABNORMAL) CBC without differential (10/12/2024 4:30 AM SPRINKLER DRIVER) WBC 9.7 3.8 - 9.9 K/cumm Hgb 8.9(L) 13.0 - 17.5 g/dL [facility] Hct 27.8(L) 38.9 - 50.3 % [facility] Plt 101(L) 150 - 400 K/cumm [facility] MPV 12.3 9.1 - 12.3 fL [facility] RBC 2.91(L) 4.30 - 5.80 M/cumm [facility] MCV 95.5 81.3 - 96.4 fL [facility] MCH 30.6 27.1 - 33.3 pg [facility] MCHC 32.0(L) 32.3 - 35.7 g/dL [facility] RDW CV 14.5 11.1 - 14.9 % [facility] RDW SD 50.0(H) 35.7 - 48.1 fL [facility] NRBC abs 0.00 0.00 - 0.01 K/cumm [facility] Blood 10/12/2024 4:30 AM SPRINKLER DRIVER 10/12/2024 5:08 AM SPRINKLER DRIVER us Guillermo Mayes MD LAB BLOOD ORDERABLES Final R esult LORINACE RAYGOZA [address] [address] Department [place] [address] * Magnesium (10/12/2024 4:30 AM SPRINKLER DRIVER) Magnesium 2.2 1.4 - 2.5 mg/dL Blood 10/12/2024 4:30 AM SPRINKLER DRIVER 10/12/2024 5:11 AM SPRINKLER DRIVER Yvette Russell NP LAB BLOOD ORDERABLES Fin al Result Performing Organization Address City/[facility] Co de Phone Number [facility] [address] [address] Department [place] [address] * (ABNORMAL) Basic metabolic panel (10/12/2024 4:30 AM SPRINKLER DRIVER) Sodium 141 135 - 145 mmol/L Potassium, pl 4.1 3.3 - 4.9 mmol/L [facility] Chloride 106 97 - 110 mmol/L [facility] CO2 22 22 - 32 mmol/L [facility] Anion gap 13 2 - 15 mmol/L [facility] BUN 30(H) 6 - 25 mg/dL [facility] Creatinine 1.19 0.80 - 1.30 mg/dL [facility] Glucose 122 70 - 199 mg/dL [facility] Comment: Interpretive Data Fasting glucose >/= 126 [...] 2022. Calcium 8.9 8.5 - 10.3 mg/dL [facility] Blood 10/12/2024 4:30 AM SPRINKLER DRIVER 10/12/2024 5:11 AM SPRINKLER DRIVER Guillermo Mayes MD LAB BLOOD ORDERABLES Final R esult Performing Organization Address City/State/[facility] Co de Phone Number NICOLE RAYGOZA [address] [address] [facility] [place] [address] * POCT glucose (10/11/2024 8:46 PM SPRINKLER DRIVER) Glucose, POC 149 70 - 199 mg/dL Blood 10/11/2024 8:46 PM SPRINKLER DRIVER 10/11/2024 8:46 PM SPRINKLER DRIVER Guillermo Mayes MD LAB POCT ORDERABLES - DEVICE Final Result Performing Organization Address [facility] de Phone Number NICOLE RAYGOZA [address] [address] [facility] [place] [address] * POCT glucose (10/11/2024 5:13 PM SPRINKLER DRIVER) Glucose, POC 194 70 - 199 mg/dL Blood 10/11/2024 5:13 PM SPRINKLER DRIVER 10/11/2024 5:13 PM SPRINKLER DRIVER Guillermo Mayes MD LAB POCT ORDERABLES - DEVICE Final Result Performing Organization Address [facility] de Phone Number NICOLE [address] [address] [facility] [place] [address] * POCT glucose (10/11/2024 12:12 PM SPRINKLER DRIVER) Glucose, POC 160 70 - 199 mg/dL Blood 10/11/2024 12:1 2 PM SPRINKLER DRIVER 10/11/2024 12:12 PM SPRINKLER DRIVER Guillermo Mayes MD LAB POCT ORDERABLES - DEVICE Final Result Performing Organization Address [facility] Co de Phone Number NICOLE [address] [address] [facility] [place] [address] * POCT glucose (10/11/2024 8:24 AM SPRINKLER DRIVER) Glucose, POC 144 70 - 199 mg/dL Blood 10/11/2024 8:24 AM SPRINKLER DRIVER 10/11/2024 8:24 AM SPRINKLER DRIVER us Guillermo Mayes MD LAB POCT [place] - [place] [address] [address] Department of Laboratories [place] [phone] * Critical Care (10/11/2024 6:32 AM SPRINKLER DRIVER) Narrative Case Guerrero MD - 10/11/2024 6:32 AM SPRINKLER DRIVER Case Guerrero MD 10/11/2024 1:49 PM Critical [...] plan with the ICU team and other medical/sharepoint consultant staff, making frequent assessments and decisions [...] Portable - in AM (10/11/2024 5:59 AM SPRINKLER DRIVER) Anatomical Region Laterality Modality Body, Chest N/A Computed Radiogr aphy 10/11/2024 9:45 AM SPRINKLER DRIVER Impressions 10/11/2024 9:45 AM SPRINKLER DRIVER FINDINGS/IMPRESSION: No pneumothorax or pleural effusion. Bilateral thoracostomy tubes. Poststernotomy changes. Pulmonary arterial catheter is appropriately positioned. Mediastinal drain is appropriately positioned. No consolidation. Electronically signed by: Jj Grubbs II, D.O. 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 Current interpretive data was last revised 2019. Blood 10/11/2024 5:30 AM SPRINKLER DRIVER 10/11/2024 5:35 AM SPRINKLER DRIVER Yvette Russell NP LAB BLOOD ORDERABLES [facility] al Result NICOLE [address] [address] Department [place] [address] * (ABNORMAL) Calcium, ionized, whole blood (10/11/2024 5:22 AM SPRINKLER DRIVER) Ca, ionized, bld 4.49(L) 4.50 - 5.10 mg/dL Blood 10/11/2024 5:22 AM SPRINKLER DRIVER 10/11/2024 5:50 AM SPRINKLER DRIVER us Yvette Russell NP LAB BLOOD ORDERABLES Fin al Result Performing Organization Address [facility] Co de Phone Number NICOLE RAYGOZA [address] [place] [address] * (ABNORMAL) eGFR (10/11/2024 5:22 AM SPRINKLER DRIVER) eGFR 58(L) >=60 mL/min/1. 73 m2 Comment: [...] last reviewed 2021. Blood 10/11/2024 5:22 AM SPRINKLER DRIVER 10/11/2024 5:50 AM SPRINKLER DRIVER us Guillermo Mayes MD LAB BLOOD ORDERABLES Final R esult Performing Organization Address City/[facility]/ZIP Co de Phone Number NICOLE RAYGOZA [address] Department of Laboratories [place], [place] [id number] * (ABNORMAL) CBC without differential (10/11/2024 5:22 AM SPRINKLER DRIVER) WBC 7.2 3.8 - 9.9 K/cumm Hgb 8.3(L) 13.0 - 17.5 g/dL [facility] Hct 24.6(L) 38.9 - 50.3 % [facility] Plt 85(L) 150 - 400 K/cumm [facility] MPV 11.2 9.1 - 12.3 fL [facility] RBC 2.74(L) 4.30 - 5.80 M/cumm [facility] MCV 89.8 81.3 - 96.4 fL [facility] MCH 30.3 27.1 - 33.3 pg [facility] MCHC 33.7 32.3 - 35.7 g/dL [facility] RDW CV 14.2 11.1 - 14.9 % [facility] RDW SD 45.5 35.7 - 48.1 fL [facility] NRBC abs 0.00 0.00 - 0.01 K/cumm [facility] Blood 10/11/2024 5:22 AM SPRINKLER DRIVER 10/11/2024 5:31 AM SPRINKLER DRIVER Guillermo Mayes MD LAB BLOOD ORDERABLES Final R esult Performing Organization Address [facility] de Phone Number [facility] [address] [address] [facility] [place] [address] * Phosphorus (10/11/2024 5:22 AM SPRINKLER DRIVER) Phosphorus, pl 3.3 2.3 - 4.5 mg/dL Blood 10/11/2024 5:22 AM SPRINKLER DRIVER 10/11/2024 5:31 AM SPRINKLER DRIVER Yvette Russell FULL STACK PYTHON DEVELOPER LAB BLOOD ORDERABLES Fin al Result Performing Organization Address [facility] de Phone Number [facility] [address] [address] Department [place] [address] * Magnesium (10/11/2024 5:22 AM SPRINKLER DRIVER) Magnesium 2.2 1.4 - 2.5 mg/dL Blood 10/11/2024 5:22 AM SPRINKLER DRIVER 10/11/2024 5:31 AM SPRINKLER DRIVER Yvette Russell NP LAB BLOOD ORDERABLES Fin al Result Performing Organization Address [facility] de Phone Number [facility] [address] [address] Department [place] [address] * Basic metabolic panel (10/11/2024 5:22 AM SPRINKLER DRIVER) Sodium 142 135 - 145 mmol/L Potassium, pl 3.9 3.3 - 4.9 mmol/L [facility] Chloride 107 97 - 110 mmol/L [facility] CO2 23 22 - 32 mmol/L [facility] Anion gap 12 2 - 15 mmol/L [facility] BUN 21 6 - 25 mg/dL [facility] Creatinine 1.25 0.80 - 1.30 mg/dL [facility] Glucose [...] 2022. Calcium 8.5 8.5 - 10.3 mg/dL [facility] Blood 10/11/2024 5:22 AM SPRINKLER DRIVER 10/11/2024 5:31 AM SPRINKLER DRIVER Guillermo Mayes MD LAB BLOOD ORDERABLES Final R esult Performing Organization Address City/[facility]/ZIP Co de Phone Number [facility] [address] [facility] [place] [address] * POCT glucose (10/11/2024 5:20 AM SPRINKLER DRIVER) Glucose, POC 132 70 - 199 mg/dL Blood 10/11/2024 5:20 AM SPRINKLER DRIVER 10/11/2024 5:20 AM SPRINKLER DRIVER Guillermo Mayes MD LAB POCT ORDERABLES - DEVICE Final Result Performing Organization Address [facility] Co de Phone Number NICOLE RAYGOZA [address] [address] [facility] [place] [address] * POCT glucose (10/11/2024 4:26 AM SPRINKLER DRIVER) Glucose, POC 126 70 - 199 mg/dL Blood 10/11/2024 4:26 AM SPRINKLER DRIVER 10/11/2024 4:26 AM SPRINKLER DRIVER Guillermo Mayes MD LAB POCT ORDERABLES - DEVICE Final Result Performing Organization Address [facility] de Phone Number NICOLE RAYGOZA [address] [address] [facility] [place] [address] * POCT glucose (10/11/2024 3:23 AM SPRINKLER DRIVER) Glucose, POC 126 70 - 199 mg/dL Blood 10/11/2024 3:23 AM SPRINKLER DRIVER 10/11/2024 3:23 AM SPRINKLER DRIVER Guillermo Mayes MD LAB POCT ORDERABLES - DEVICE Final Result Performing Organization Address [facility] de Phone Number NICOLE RAYGOZA [address] [address] [facility] [place] [address] * POCT glucose (10/11/2024 2:26 AM SPRINKLER DRIVER) Glucose, POC 120 70 - 199 mg/dL Blood 10/11/2024 2:26 AM SPRINKLER DRIVER 10/11/2024 2:26 AM SPRINKLER DRIVER Guillermo Mayes MD LAB POCT ORDERABLES - DEVICE Final Result Performing Organization Address [facility] Co de Phone Number NICOLE RAYGOZA [address] [place] [address] * POCT glucose (10/11/2024 1:28 AM SPRINKLER DRIVER) Glucose, POC 120 70 - 199 mg/dL Blood 10/11/2024 1:28 AM SPRINKLER DRIVER 10/11/2024 1:28 AM SPRINKLER DRIVER us Guillermo Mayes MD LAB POCT ORDERABLES - DEVICE Final Result Performing Organization Address [facility] Co de Phone Number NICOLE RAYGOZA [address] [address] [facility] [place] [address] * POCT glucose (10/11/2024 12:27 AM SPRINKLER DRIVER) Glucose, POC 124 70 - 199 mg/dL Blood 10/11/2024 12:2 7 AM SPRINKLER DRIVER 10/11/2024 12:27 AM SPRINKLER DRIVER Guillermo Mayes MD LAB POCT ORDERABLES - DEVICE Final Result Performing Organization Address [facility] de Phone Number LORINACE RAYGOZA [address] [address] [facility] [place] [address] * POCT glucose (10/10/2024 11:26 PM SPRINKLER DRIVER) Glucose, POC 112 70 - 199 mg/dL Blood 10/10/2024 11:2 6 PM SPRINKLER DRIVER 10/10/2024 11:26 PM SPRINKLER DRIVER Guillermo Mayes MD LAB POCT ORDERABLES - DEVICE Final Result Performing Organization Address [facility] Co de Phone Number LORINACE RAYGOZA [address] Jose Manuel [facility] [place] [address] * POCT glucose (10/10/2024 10:27 PM SPRINKLER DRIVER) Glucose, POC 120 70 - 199 mg/dL Blood 10/10/2024 10:2 7 PM SPRINKLER DRIVER 10/10/2024 10:27 PM SPRINKLER DRIVER us Guillermo Mayes MD LAB POCT ORDERABLES - DEVICE Final Result Performing Organization Address [facility] Co de Phone Number NICOLE RAYGOZA [address] Jose Manuel Liu Department [place] [address] * POCT glucose (10/10/2024 9:26 PM SPRINKLER DRIVER) Glucose, POC 118 70 - 199 mg/dL Blood 10/10/2024 9:26 PM SPRINKLER DRIVER 10/10/2024 9:26 PM SPRINKLER DRIVER us Guillermo Mayes MD LAB POCT [place] - [place] [address] [address] Department [place] [address] * Critical Care (10/10/2024 7:59 PM SPRINKLER DRIVER) Narrative Deo Biggs MD - 10/10/2024 7:59 PM SPRINKLER DRIVER Deo Biggs MD 10/11/2024 5:48 AM Critical [...] plan with the ICU team and other medical/sharepoint consultant staff, making frequent assessments and decisions [...] Result * POCT glucose (10/10/2024 7:12 PM SPRINKLER DRIVER) Glucose, POC 102 70 - 199 mg/dL Blood 10/10/2024 7:12 PM SPRINKLER DRIVER 10/10/2024 7:12 PM SPRINKLER DRIVER us Guillermo Mayes MD LAB POCT ORDERABLES - DEVICE Final Result Performing Organization Address [facility] de Phone Number NICOLE RAYGOZA [address] Jose Manuel [facility] [place] [address] * POCT glucose (10/10/2024 6:06 PM SPRINKLER DRIVER) Glucose, POC 128 70 - 199 mg/dL Blood 10/10/2024 6:06 PM SPRINKLER DRIVER 10/10/2024 6:06 PM SPRINKLER DRIVER us Guillermo Mayes MD LAB POCT ORDERABLES - DEVICE Final Result Performing Organization Address [facility] de Phone Number NICOLE [address] Jose Manuel [facility] [place] [address] * POCT glucose (10/10/2024 5:02 PM SPRINKLER DRIVER) Glucose, POC 127 70 - 199 mg/dL Blood 10/10/2024 5:02 PM SPRINKLER DRIVER 10/10/2024 5:02 PM SPRINKLER DRIVER Guillermo Mayes MD LAB POCT ORDERABLES - DEVICE Final Result Performing Organization Address [facility] de Phone Number NICOLE [address] Jose [address] [facility] [place] [address] * POCT glucose (10/10/2024 4:06 PM SPRINKLER DRIVER) Glucose, POC 125 70 - 199 mg/dL Blood 10/10/2024 4:06 PM SPRINKLER DRIVER 10/10/2024 4:06 PM SPRINKLER DRIVER us Guillermo Mayes MD LAB POCT ORDERABLES - DEVICE Final Result Performing Organization Address [facility] Co de Phone Number NICOLE RAYGOZA [address] Jose Manuel [facility] [place] [address] * POCT glucose (10/10/2024 3:02 PM SPRINKLER DRIVER) Glucose, POC 116 70 - 199 mg/dL Blood 10/10/2024 3:02 PM SPRINKLER DRIVER 10/10/2024 3:02 PM SPRINKLER DRIVER Guillermo Mayes MD LAB POCT ORDERABLES - DEVICE Final Result Performing Organization Address [facility] de Phone Number NICOLE RAYGOZA [address] Jose Manuel [facility] [place] [address] * POCT glucose (10/10/2024 1:58 PM SPRINKLER DRIVER) Glucose, POC 129 70 - 199 mg/dL Blood 10/10/2024 1:58 PM SPRINKLER DRIVER 10/10/2024 1:58 PM SPRINKLER DRIVER Guillermo Mayes MD LAB POCT ORDERABLES - DEVICE Final Result Performing Organization Address [facility] de Phone Number NICOLE RAYGOZA [address] Jose Manuel [facility] [place] [address] * Calcium, ionized, whole blood (10/10/2024 1:54 PM SPRINKLER DRIVER) Pathologist [facility] Ca, ionized, bld 4.54 4.50 - 5.10 mg/dL Blood 10/10/2024 1:54 PM SPRINKLER DRIVER 10/10/2024 2:04 PM SPRINKLER DRIVER Guillermo Mayes MD LAB BLOOD ORDERABLES Final R esult Performing Organization Address [facility] Co de Phone Number NICOLE RAYGOZA [address] Jose [address] [facility] [place] [address] * eGFR (10/10/2024 1:54 PM SPRINKLER DRIVER) eGFR 62 >=60 mL/min/1. 73 m2 Comment: [...] last reviewed 2021. Blood 10/10/2024 1:54 PM SPRINKLER DRIVER 10/10/2024 2:04 PM SPRINKLER DRIVER us Guillermo Mayes MD LAB BLOOD ORDERABLES Final R esult [facility] [id number] [address] Liu Department [place] [address] * (ABNORMAL) Differential, auto (10/10/2024 1:54 PM SPRINKLER DRIVER) Neutrophil abs 5.9 1.5 - 6.5 K/cumm Imm gran abs 0.0 0.0 - 0.1 K/cumm [facility] Lymphocyte abs 0.4(L) 0.8 - 3.3 K/cumm [facility] Monocyte abs 0.5 0.2 - 0.8 K/cumm [facility] Eosinophil abs 0.0 0.0 - 0.5 K/cumm [facility] Basophil abs 0.0 0.0 - 0.1 K/cumm [facility] Neutrophil pct 86.5 % [facility] Comment: Interpretive Data Percent cell count reference ranges are not reported, since discordance with absolute values may lead to misinterpretation of CBC data. Current Interpretive Data was last revised on 2017. Imm gran pct 0.6 % [facility] Comment: Interpretive Data Percent cell count reference ranges are not reported, since discordance with absolute values may lead to misinterpretation of CBC data. Current Interpretive Data was last revised on 2017. Lymphocyte pct 5.6 % [facility] Comment: Interpretive Data Percent cell count reference ranges are not reported, since discordance with absolute values may lead to misinterpretation of CBC data. Current Interpretive Data was last revised on 2017. Monocyte pct 7.0 % [facility] Comment: Interpretive Data Percent cell count reference ranges are not reported, since discordance with absolute values may lead to misinterpretation of CBC data. Current Interpretive Data was last revised on 2017. Eosinophil pct 0.0 % [facility] Comment: Interpretive Data Percent cell count reference ranges are not reported, since discordance with absolute values may lead to misinterpretation of CBC data. Current Interpretive Data was last revised on 2017. Basophil pct 0.3 % [facility] Comment: Interpretive Data Percent cell count reference ranges are not reported, since discordance with absolute values may lead to misinterpretation of CBC data. Current Interpretive Data was last revised on 2017. Blood 10/10/2024 1:54 PM SPRINKLER DRIVER 10/10/2024 2:04 PM SPRINKLER DRIVER us Guillermo Mayes MD LAB BLOOD ORDERABLES Final R esult [facility] [address] Jose Manuel Liu Department [place] [address] * (ABNORMAL) CBC with auto differential (10/10/2024 1:54 PM SPRINKLER DRIVER) WBC 6.8 3.8 - 9.9 K/cumm Hgb 8.9(L) 13.0 - 17.5 g/dL [facility] Hct 26.4(L) 38.9 - 50.3 % [facility] Plt 106(L) 150 - 400 K/cumm [facility] MPV 10.9 9.1 - 12.3 fL [facility] RBC 2.99(L) 4.30 - 5.80 M/cumm [facility] MCV 88.3 81.3 - 96.4 fL [facility] MCH 29.8 27.1 - 33.3 pg [facility] MCHC 33.7 32.3 - 35.7 g/dL [facility] RDW CV 13.8 11.1 - 14.9 % [facility] RDW SD 44.2 35.7 - 48.1 fL [facility] NRBC abs 0.00 0.00 - 0.01 K/cumm [facility] Blood 10/10/2024 1:54 PM SPRINKLER DRIVER 10/10/2024 2:04 PM SPRINKLER DRIVER Guillermo Mayes MD LAB BLOOD ORDERABLES Final R esult [facility] [address] [address] [place], [place] [id number] * Magnesium (10/10/2024 1:54 PM SPRINKLER DRIVER) [facility] Magnesium 2.2 1.4 - 2.5 mg/dL Blood 10/10/2024 1:54 PM SPRINKLER DRIVER 10/10/2024 2:04 PM SPRINKLER DRIVER Guillermo Mayes MD LAB BLOOD ORDERABLES Final R [facility] Performing Organization Address [facility] Co de Phone Number [facility] [address] Jose Manuel [facility] [place] [place] [address] * (ABNORMAL) Basic metabolic panel (10/10/2024 1:54 PM SPRINKLER DRIVER) Pathologist [facility] Sodium 142 135 - 145 mmol/L Potassium, pl 3.9 3.3 - 4.9 mmol/L [facility] Chloride 108 97 - 110 mmol/L [facility] CO2 21(L) 22 - 32 mmol/L [facility] Anion gap 13 2 - 15 mmol/L [facility] BUN 17 6 - 25 mg/dL [facility] Creatinine 1.19 0.80 - 1.30 mg/dL [facility] Glucose 123 70 - 199 mg/dL [facility] Comment: Interpretive Data Fasting glucose >/= 126 [...] 2022. Calcium 8.4(L) 8.5 - 10.3 mg/dL [facility] Blood 10/10/2024 1:54 PM SPRINKLER DRIVER 10/10/2024 2:04 PM SPRINKLER DRIVER Guillermo Mayes MD LAB BLOOD ORDERABLES Final R esult Performing Organization Address [facility] Co de Phone Number NICOLE [address] Jose Manuel Department [place] [address] * POCT glucose (10/10/2024 12:58 PM SPRINKLER DRIVER) Glucose, POC 141 70 - 199 mg/dL Blood 10/10/2024 12:5 8 PM SPRINKLER DRIVER 10/10/2024 12:58 PM SPRINKLER DRIVER Guillermo Mayes MD LAB POCT ORDERABLES - DEVICE Final Result Performing Organization Address [facility] Co de Phone Number [facility] [address] Jose Manuel Department [place] [address] * Urinalysis reflex to microscopic (10/10/2024 12:27 PM SPRINKLER DRIVER) Color, ur Straw Yellow Clarity, ur Clear Clear [facility] Specific gravity, ur 1.007 1.003 - 1.030 [facility] pH, urine 5.0 [facility] Comment: Interpretive Data U rine pH is affected by diet, medications, systemic acid-base disturbances, and renal tubular function. pH may affect urinary stone formation. For example, urine pH below 6.0 may help reduce the tendency for calcium phosphate stones and pH greater than 6.0 may reduce the tendency for uric acid stone formation. Source: [facility] Current Interpretive Data was last revised on [...] [facility] Urine 10/10/2024 12:2 7 PM SPRINKLER DRIVER 10/10/2024 12:35 PM SPRINKLER DRIVER Yvette Russell NP LAB URINE ORDERABLES Fin al Result Performing Organization Address [facility] Co de Phone Number LORINACE RAYGOZA [address] Jose Manuel Liu Department [place] [address] * POCT glucose (10/10/2024 11:53 AM SPRINKLER DRIVER) Glucose, POC 151 70 - 199 mg/dL Blood 10/10/2024 11:5 3 AM SPRINKLER DRIVER 10/10/2024 11:53 AM SPRINKLER DRIVER Guillermo Mayes MD LAB POCT ORDERABLES - DEVICE Final Result Performing Organization Address [facility] de Phone Number LORINACE RAYGOZA [address] Jose Manuel Liu [place] [address] * POCT glucose (10/10/2024 10:48 AM SPRINKLER DRIVER) Glucose, POC 150 70 - 199 mg/dL Blood 10/10/2024 10:4 8 AM SPRINKLER DRIVER 10/10/2024 10:48 AM SPRINKLER DRIVER Guillermo Mayes MD LAB POCT ORDERABLES - DEVICE Final Result Performing Organization Address [facility] Co de Phone Number LORINACE [address] Jose Manuel Liu Department [place] [address] * POCT glucose (10/10/2024 9:48 AM SPRINKLER DRIVER) Glucose, POC 169 70 - 199 mg/dL Blood 10/10/2024 9:48 AM SPRINKLER DRIVER 10/10/2024 9:48 AM SPRINKLER DRIVER Result [facility] Guillermo Mayes MD LAB POCT ORDERABLES - DEVICE Final Result Performing Organization Address [facility] Phone Number NICOLE RAYGOZA [address] Jose Manuel Department [place] [address] * (ABNORMAL) POCT glucose (10/10/2024 8:16 AM SPRINKLER DRIVER) Glucose, POC 200(H) 70 - 199 mg/dL Blood 10/10/2024 8:16 AM SPRINKLER DRIVER 10/10/2024 8:16 AM SPRINKLER DRIVER Result [facility] Guillermo Mayes MD LAB POCT ORDERABLES - DEVICE Final Result Performing Organization Address [facility] [place] [address] Jose Manuel [facility] [place] [address] * ECG 12 lead (10/10/2024 7:57 AM SPRINKLER DRIVER) 10/10/2024 7:57 AM SPRINKLER DRIVER Narrative [facility] - 10/10/2024 11:11 AM SPRINKLER DRIVER Vent Rate: 97 bpm RR Interval: 613 msec MS Interval: 122 msec QRS Duration: 142 msec QT Interval: 390 msec QTC Interval: 445 msec P-R-T Dawn: 30 - -17 - 61 degrees IMPRESSION: SINUS RHYTHM RIGHT BUNDLE BRANCH BLOCK [120+ ms QRS DURATION, UPRIGHT V1, 40+ ms S IN I/aVL/V4/V5/V6] ABNORMAL ECG Electronically Signed By: Kcay Knox MD Fatou Schwartz MD ECG ORDERABLES Final Result Performing Organization Address [facility] de Phone Number [facility] [employer] [facility] * (ABNORMAL) Blood gas, arterial (10/10/2024 6:52 AM SPRINKLER DRIVER) pH, Art 7.44 7.35 - 7.45 PCO2, [...] % [facility] Blood 10/10/2024 6:52 AM SPRINKLER DRIVER 10/10/2024 6:55 AM SPRINKLER DRIVER us Guillermo Mayes MD LAB BLOOD ORDERABLES Final R esult NICOLE [address] [address] Department of Laboratories [place] [id number] * Critical Care (10/10/2024 6:41 AM SPRINKLER DRIVER) Narrative Case Guerrero MD - 10/10/2024 6:41 AM SPRINKLER DRIVER Case Guerrero MD 10/10/2024 4:43 PM Critical [...] plan with the ICU team and other medical/sharepoint consultant staff, making frequent assessments and decisions [...] of the following conditions: us Yvette Russell FULL STACK PYTHON DEVELOPER IN CLINIC/BEDSIDE ORDERA BLES Final Result * POCT glucose (10/10/2024 6:10 AM SPRINKLER DRIVER) Glucose, POC 167 70 - 199 mg/dL Blood 10/10/2024 6:10 AM SPRINKLER DRIVER 10/10/2024 6:10 AM SPRINKLER DRIVER Guillermo Mayes MD LAB POCT ORDERABLES - DEVICE Final Result Performing Organization Address City/State/ZIP Co ks Phone Number NICOLE RAYGOZA [address] [facility] [place] [address] * XR Chest 1 View - Portable - in AM (10/10/2024 5:55 AM SPRINKLER DRIVER) Anatomical Region Laterality Modality Body, Chest N/A Computed Radiogr aphy 10/10/2024 9:08 AM SPRINKLER DRIVER Impressions 10/10/2024 9:08 AM SPRINKLER DRIVER No failure. Electronically signed by: Elena Bower M.D. Narrative 10/10/2024 9:08 AM SPRINKLER DRIVER EXAMINATION: XR CHEST 1 VIEW HISTORY: The patient is an 79-year-old male who has had cardiac surgery. Comparison made with the previous study dated 10/09/2024. TECHNIQUE: AP portable view of the chest. FINDINGS: Unchanged satisfactory position of the endotracheal tube, bilateral thoracostomy tubes nasogastric tube and Racine-Fausto catheter. Borderline cardiomegaly with aortic atherosclerosis. No [...] tube, bilateral thoracostomy tubes nasogastric tube and Racine-Fausto catheter. Borderline cardiomegaly with aortic atherosclerosis. No failure. No active infiltrate. IMPRESSION: No failure. Electronically signed by: Elena Bower M.D. Guillermo Mayes MD IMG XR PROCEDURES Final Resu lt * POCT glucose (10/10/2024 5:15 AM SPRINKLER DRIVER) Glucose, POC 194 70 - 199 mg/dL Blood 10/10/2024 5:15 AM SPRINKLER DRIVER 10/10/2024 5:15 AM SPRINKLER DRIVER Guillermo Mayes MD LAB POCT ORDERABLES - DEVICE Final Result Performing Organization Address [facility] Co de Phone Number NICOLE RAYGOZA [address] Jose Manuel Department [employer] [place], [place] [id number] * Oxyhemoglobin, pulmonary artery (10/10/2024 2:34 AM SPRINKLER DRIVER) Oxyhemoglobin, PA 58.0 % Comment: Interpretive Data No reference range established. Current interpretive data was last revised 2019. Blood 10/10/2024 2:34 AM SPRINKLER DRIVER 10/10/2024 2:43 AM SPRINKLER DRIVER us Guillermo Mayes MD LAB BLOOD ORDERABLES Final R esult Performing Organization Address [facility] Co de Phone Number NICOLE RAYGOZA [address] [place] [address] * eGFR (10/10/2024 2:27 AM SPRINKLER DRIVER) eGFR 69 >=60 mL/min/1. 73 m2 Comment: [...] last reviewed 2021. Blood 10/10/2024 2:27 AM SPRINKLER DRIVER 10/10/2024 2:27 AM SPRINKLER DRIVER us Fatou Schwartz MD LAB BLOOD ORDERABLES Final Res ult [facility] [address] Jose Manuel Liu [place] [address] * (ABNORMAL) Differential, auto (10/10/2024 2:27 AM SPRINKLER DRIVER) Neutrophil abs 5.8 1.5 - 6.5 K/cumm Imm gran abs 0.0 0.0 - 0.1 K/cumm [facility] Lymphocyte abs 0.3(L) 0.8 - 3.3 K/cumm [facility] Monocyte abs 0.4 0.2 - 0.8 K/cumm [facility] Eosinophil abs 0.0 0.0 - 0.5 K/cumm [facility] Basophil abs 0.0 0.0 - 0.1 K/cumm [facility] Neutrophil pct 88.1 % [facility] Comment: Interpretive Data Percent cell count reference ranges are not reported, since discordance with absolute values may lead to misinterpretation of CBC data. Current Interpretive Data was last revised on 2017. Imm gran pct 0.5 % [facility] Comment: Interpretive Data Percent cell count reference ranges are not reported, since discordance with absolute values may lead to misinterpretation of CBC data. Current Interpretive Data was last revised on 2017. Lymphocyte pct 4.2 % [facility] Comment: Interpretive Data Percent cell count reference ranges are not reported, since discordance with absolute values may lead to misinterpretation of CBC data. Current Interpretive Data was last revised on 2017. Monocyte pct 6.5 % [facility] Comment: Interpretive Data Percent cell count reference ranges are not reported, since discordance with absolute values may lead to misinterpretation of CBC data. Current Interpretive Data was last revised on 2017. Eosinophil pct 0.2 % [facility] Comment: Interpretive Data Percent cell count reference ranges are not reported, since discordance with absolute values may lead to misinterpretation of CBC data. Current Interpretive Data was last revised on 2017. Basophil pct 0.5 % [facility] Comment: Interpretive Data Percent cell count reference ranges are not reported, since discordance with absolute values may lead to misinterpretation of CBC data. Current Interpretive Data was last revised on 2017. Blood 10/10/2024 2:27 AM SPRINKLER DRIVER 10/10/2024 2:27 AM SPRINKLER DRIVER Fatou Schwartz MD LAB BLOOD ORDERABLES Final Res ult [facility] [address] Jose Manuel Department of Laboratories [place], [place] [id number] * Thyroid Function [place] (10/10/2024 2:27 AM SPRINKLER DRIVER) Pathologist [facility] TSH 3.02 0.30 - 4.20 mcIUnit/mL Blood 10/10/2024 2:27 AM SPRINKLER DRIVER 10/10/2024 2:27 AM SPRINKLER DRIVER Yvette Russell NP LAB BLOOD ORDERABLES Fin al Result Performing Organization Address [facility] Co de Phone Number [facility] [address] Jose Manuel Department [place] [address] * (ABNORMAL) CBC with auto differential (10/10/2024 2:27 AM SPRINKLER DRIVER) Pathologist [facility] WBC 6.6 3.8 - 9.9 K/cumm Hgb 9.2(L) 13.0 - 17.5 g/dL [facility] Hct 26.4(L) 38.9 - 50.3 % [facility] Plt 133(L) 150 - 400 K/cumm [facility] MPV 10.5 9.1 - 12.3 fL [facility] RBC 2.99(L) 4.30 - 5.80 M/cumm [facility] MCV 88.3 81.3 - 96.4 fL [facility] MCH 30.8 27.1 - 33.3 pg [facility] MCHC 34.8 32.3 - 35.7 g/dL [facility] RDW CV 13.7 11.1 - 14.9 % [facility] RDW SD 43.9 35.7 - 48.1 fL [facility] NRBC abs 0.00 0.00 - 0.01 K/cumm [facility] Blood 10/10/2024 2:27 AM SPRINKLER DRIVER 10/10/2024 2:27 AM SPRINKLER DRIVER Fatou Schwartz MD LAB BLOOD ORDERABLES Final Res ult Performing Organization Address City/[facility] Co de Phone Number [facility] [address] Jose Manuel [facility] [place] [address] * (ABNORMAL) Vitamin D 25 hydroxy (10/10/2024 2:27 AM SPRINKLER DRIVER) Pathologist [facility] Vitamin D 25-OH 13(L) 30 - 80 ng/mL Blood 10/10/2024 2:27 AM SPRINKLER DRIVER 10/10/2024 2:38 AM SPRINKLER DRIVER Yvette Russell FULL STACK PYTHON DEVELOPER LAB BLOOD ORDERABLES Fin al Result Performing Organization Address [facility] de Phone Number [facility] [address] Jose Manuel Department [place] [address] * Phosphorus (10/10/2024 2:27 AM SPRINKLER DRIVER) Pathologist [facility] Phosphorus, pl 3.9 2.3 - 4.5 mg/dL Blood 10/10/2024 2:27 AM SPRINKLER DRIVER 10/10/2024 2:27 AM SPRINKLER DRIVER Yvette Russell FULL STACK PYTHON DEVELOPER LAB BLOOD ORDERABLES Fin al Result Performing Organization Address [facility] Co de Phone Number [facility] [address] Jose [address] [facility] [place] [address] * Magnesium (10/10/2024 2:27 AM SPRINKLER DRIVER) Pathologist [facility] Magnesium 2.1 1.4 - 2.5 mg/dL Blood 10/10/2024 2:27 AM SPRINKLER DRIVER 10/10/2024 2:27 AM SPRINKLER DRIVER Fatou Schwartz MD LAB BLOOD ORDERABLES Final Res ult Performing Organization Address [facility] Co de Phone Number [facility] [address] [address] [place] [address] * (ABNORMAL) Hepatic function panel (10/10/2024 2:27 AM SPRINKLER DRIVER) Bilirubin, total 0.5 0.1 - 1.2 mg/dL Bilirubin, direct 0.2 0.1 - 0.3 mg/dL [facility] Protein, pl 4.9(L) 6.5 - 8.5 g/dL [facility] Albumin 3.5 3.5 - 5.0 g/dL [facility] Alk phos 41 40 - 130 Units/L [facility] ALT 25 7 - 55 Units/L [facility] AST 42 10 - 50 Units/L [facility] Blood 10/10/2024 2:27 AM SPRINKLER DRIVER 10/10/2024 2:27 AM SPRINKLER DRIVER Yvette Russell NP LAB BLOOD ORDERABLES Fin al Result Performing Organization Address [facility] Co de Phone Number [facility] [address] [address] Department [place] [address] * (ABNORMAL) Lipid panel (10/10/2024 2:27 AM SPRINKLER DRIVER) Cholesterol 65 30 - 199 mg/dL Comment: [...] 2018. LDL, calculated 14 <=129 mg/dL NICOLE Comment: Interpretive Data Ages < [...] 3. Juma Velasquez et al. SEGUNDO Cardiol. 2020 December 07;5(5):540-548. doi: [email or web address] Current Interpretive Data was last revised on 2024. Non-HDL Cholesterol 31 mg/dL CERNER Comment: Interpretive Data Ages < or = [...] last revised on 2018. Chol/HDL ratio 2 [facility]ERNER Blood 10/10/2024 2:27 AM SPRINKLER DRIVER 10/10/2024 2:27 AM SPRINKLER DRIVER Yvette Russell NP LAB BLOOD ORDERABLES Fin al Result [facility] [address] [place] [address] * (ABNORMAL) Basic metabolic panel (10/10/2024 2:27 AM SPRINKLER DRIVER) Sodium 141 135 - 145 mmol/L Potassium, pl 4.1 3.3 - 4.9 mmol/L [facility] Chloride 109 97 - 110 mmol/L [facility] CO2 20(L) 22 - 32 mmol/L [facility] Anion gap 12 2 - 15 mmol/L [facility] BUN 15 6 - 25 mg/dL [facility] Creatinine 1.09 0.80 - 1.30 mg/dL [facility] Glucose 180 70 - 199 mg/dL [facility] Comment: Interpretive Data Fasting glucose >/= 126 [...] 2022. Calcium 8.2(L) 8.5 - 10.3 mg/dL CERNER CH Blood 10/10/2024 2:27 AM SPRINKLER DRIVER 10/10/2024 2:27 AM SPRINKLER DRIVER Fatou Schwartz MD LAB BLOOD ORDERABLES Final Res ult [facility] [address] [address] Department [place] [address] * Calcium, ionized, whole blood (10/10/2024 2:21 AM SPRINKLER DRIVER) Ca, ionized, bld 4.72 4.50 - 5.10 mg/dL Blood 10/10/2024 2:21 AM SPRINKLER DRIVER 10/10/2024 2:26 AM SPRINKLER DRIVER Yvette Russell NP LAB BLOOD ORDERABLES Fin al Result Performing Organization Address [facility] Co de Phone Number [facility] [address] [employer] [place], [place] [id number] * (ABNORMAL) Blood gas, arterial (10/10/2024 2:21 AM SPRINKLER DRIVER) pH, Art 7.42 7.35 - 7.45 PCO2, [...] % [facility]ERNER CH Blood 10/10/2024 2:21 AM SPRINKLER DRIVER 10/10/2024 2:25 AM SPRINKLER DRIVER Guillermo Mayes MD LAB BLOOD ORDERABLES Final R esult Performing Organization Address [facility] Co de Phone Number NICOLE RAYGOZA [address] [place] [address] * POCT glucose (10/09/2024 11:11 PM SPRINKLER DRIVER) Glucose, POC 142 70 - 199 mg/dL Blood 10/09/2024 11:1 1 PM SPRINKLER DRIVER 10/09/2024 11:11 PM SPRINKLER DRIVER Guillermo Mayes MD LAB POCT ORDERABLES - DEVICE Final Result Performing Organization Address [facility] de Phone Number NICOLE RAYGOZA [address] [address] [facility] [place] [address] * (ABNORMAL) Blood gas, arterial (10/09/2024 9:50 PM SPRINKLER DRIVER) pH, Art 7.41 7.35 - 7.45 PCO2, [...] % [facility]ER CH Blood 10/09/2024 9:50 PM SPRINKLER DRIVER 10/09/2024 9:52 PM SPRINKLER DRIVER us Tony Purdy NP LAB BLOOD ORDERABLES Fi nal Result Performing Organization Address [facility] Co de Phone Number NICOLE RAYGOZA [address] [address] [facility] [place] [address] * Critical Care (10/09/2024 8:31 PM SPRINKLER DRIVER) Narrative Deo Biggs MD - 10/09/2024 8:31 PM SPRINKLER DRIVER Deo Biggs MD 10/10/2024 5:32 AM Critical [...] plan with the ICU team and other medical/sharepoint consultant staff, making frequent assessments and decisions [...] Result * Transfuse platelets (10/09/2024 8:30 PM SPRINKLER DRIVER) Blood us Guillermo Mayes MD BLOOD TRANSFUSION ORDERABLES Final Result Performing Organization Address [facility] Co de Phone Number NICOLE RAYGOZA [address] [place] [address] * Calcium, ionized, whole blood (10/09/2024 8:23 PM SPRINKLER DRIVER) Ca, ionized, bld 4.60 4.50 - 5.10 mg/dL Blood 10/09/2024 8:23 PM SPRINKLER DRIVER 10/09/2024 8:25 PM SPRINKLER DRIVER us Guillermo Mayes MD LAB BLOOD ORDERABLES Final R esult Performing Organization Address [facility] [place] [address] [address] Department [place] [address] * eGFR (10/09/2024 8:23 PM SPRINKLER DRIVER) Pathologist [facility] eGFR 78 >=60 mL/min/1. 73 m2 Comment: [...] last reviewed 2021. Blood 10/09/2024 8:23 PM SPRINKLER DRIVER 10/09/2024 8:25 PM SPRINKLER DRIVER us Guillermo Mayes MD LAB BLOOD ORDERABLES Final R esult [facility] [address] Department [place] [address] * (ABNORMAL) Differential, auto (10/09/2024 8:23 PM SPRINKLER DRIVER) Pathologist [facility] Neutrophil abs 5.6 1.5 - 6.5 K/cumm Imm gran abs 0.0 0.0 - 0.1 K/cumm [facility] Lymphocyte abs 0.5(L) 0.8 - 3.3 K/cumm [facility] Monocyte abs 0.4 0.2 - 0.8 K/cumm [facility] Eosinophil abs 0.0 0.0 - 0.5 K/cumm [facility] Basophil abs 0.0 0.0 - 0.1 K/cumm [facility] Neutrophil pct 85.8 % [facility] Comment: Interpretive Data Percent cell count reference ranges are not reported, since discordance with absolute values may lead to misinterpretation of CBC data. Current Interpretive Data was last revised on 2017. Imm gran pct 0.5 % CERNER Comment: Interpretive Data Percent cell count reference ranges are not reported, since discordance with absolute values may lead to misinterpretation of CBC data. Current Interpretive Data was last revised on 2017. Lymphocyte pct 7.4 % [facility]ER Comment: Interpretive Data Percent cell count reference ranges are not reported, since discordance with absolute values may lead to misinterpretation of CBC data. Current Interpretive Data was last revised on 2017. Monocyte pct 5.7 % [facility]ER Comment: Interpretive Data Percent cell count reference ranges are not reported, since discordance with absolute values may lead to misinterpretation of CBC data. Current Interpretive Data was last revised on 2017. Eosinophil pct 0.3 % [facility]ER Comment: Interpretive Data Percent cell count reference ranges are not reported, since discordance with absolute values may lead to misinterpretation of CBC data. Current Interpretive Data was last revised on 2017. Basophil pct 0.3 % [facility]ER Comment: Interpretive Data Percent cell count reference ranges are not reported, since discordance with absolute values may lead to misinterpretation of CBC data. Current Interpretive Data was last revised on 2017. Blood 10/09/2024 8:23 PM SPRINKLER DRIVER 10/09/2024 8:26 PM SPRINKLER DRIVER us Guillermo Mayes MD LAB BLOOD ORDERABLES Final R esult [facility] [address] Department [place] [address] * (ABNORMAL) CBC with auto differential (10/09/2024 8:23 PM SPRINKLER DRIVER) WBC 6.5 3.8 - 9.9 K/cumm Hgb 9.3(L) 13.0 - 17.5 g/dL [facility] Hct 26.8(L) 38.9 - 50.3 % [facility] Plt 119(L) 150 - 400 K/cumm [facility] MPV 10.5 9.1 - 12.3 fL [facility] RBC 3.06(L) 4.30 - 5.80 M/cumm [facility] MCV 87.6 81.3 - 96.4 fL [facility] MCH 30.4 27.1 - 33.3 pg [facility] MCHC 34.7 32.3 - 35.7 g/dL [facility] RDW CV 13.3 11.1 - 14.9 % [facility] RDW SD 42.2 35.7 - 48.1 fL [facility] NRBC abs 0.00 0.00 - 0.01 K/cumm [facility] Blood 10/09/2024 8:23 PM SPRINKLER DRIVER 10/09/2024 8:26 PM SPRINKLER DRIVER Guillermo Mayes MD LAB BLOOD ORDERABLES Final R esult Performing Organization Address [facility] Co de Phone Number NICOLE [address] [place] [address] * (ABNORMAL) Protime-INR (10/09/2024 8:23 PM SPRINKLER DRIVER) PT 14.0(H) 9.7 - 13.0 sec INR 1.29(H) 0.90 - 1.20 [facility] Comment: Interpretive data Oral anticoagulant therapeutic ranges: Venous thromboembolism prophylaxis or treatment: 2.0-3.0 CARDIOLOGY Standard range: 2.0-3.0 High-intensity range: 2.5-3.5 Refer to indication-specific guidelines for appropriate target ranges for prosthetic heart valve replacement. Current interpretive data was last revised on 2019. Blood 10/09/2024 8:23 PM SPRINKLER DRIVER 10/09/2024 8:26 PM SPRINKLER DRIVER Guillermo Mayes MD LAB BLOOD ORDERABLES Final R esult Performing Organization Address City/[facility] Co de Phone Number NICOLE [address] [place] [address] * Fibrinogen (10/09/2024 8:23 PM SPRINKLER DRIVER) Fibrinogen 242 170 - 400 mg/dL Blood 10/09/2024 8:23 PM SPRINKLER DRIVER 10/09/2024 8:26 PM SPRINKLER DRIVER Guillermo Mayes MD LAB BLOOD ORDERABLES Final R esult NICOLE RAYGOZA [address] [facility] [place] [address] * Magnesium (10/09/2024 8:23 PM SPRINKLER DRIVER) Pathologist [facility] Magnesium 2.2 1.4 - 2.5 mg/dL Blood 10/09/2024 8:23 PM SPRINKLER DRIVER 10/09/2024 8:25 PM SPRINKLER DRIVER Result [facility] Guillermo Mayes MD LAB BLOOD ORDERABLES Final R esult Performing Organization Address [facility] de Phone Number NICOLE RAYGOZA [address] [place] [address] * (ABNORMAL) Blood gas, arterial (10/09/2024 8:23 PM SPRINKLER DRIVER) pH, Art 7.48(H) 7.35 - 7.45 PCO2, [...] % [facility]ERNER CH Blood 10/09/2024 8:23 PM SPRINKLER DRIVER 10/09/2024 8:25 PM SPRINKLER DRIVER Result [facility] Guillermo Mayes MD LAB BLOOD ORDERABLES Final R esult Performing Organization Address [facility] Co de Phone Number NICOLE RAYGOZA [address] [address] [facility] [place] [address] * (ABNORMAL) Basic metabolic panel (10/09/2024 8:23 PM SPRINKLER DRIVER) Sodium 142 135 - 145 mmol/L Potassium, pl 3.7 3.3 - 4.9 mmol/L CERNER Chloride 108 97 - 110 mmol/L [facility] CH CO2 20(L) 22 - 32 mmol/L [facility] CH Anion gap 14 2 - 15 mmol/L [facility]ER CH BUN 16 6 - 25 mg/dL [facility] CH Creatinine 0.98 0.80 - 1.30 mg/dL [facility] Glucose 135 70 - 199 mg/dL [facility] Comment: Interpretive Data Fasting glucose >/= 126 [...] 2022. Calcium 8.6 8.5 - 10.3 mg/dL [facility] Blood 10/09/2024 8:23 PM SPRINKLER DRIVER 10/09/2024 8:25 PM SPRINKLER DRIVER Guillermo Mayes MD LAB BLOOD ORDERABLES Final R esult [facility] [address] Department [place] [address] * XR Chest 1 Vw Portable (10/09/2024 8:19 PM SPRINKLER DRIVER) Anatomical Region Laterality Modality Body, Chest N/A Computed Radiogr aphy 10/09/2024 10:3 7 PM SPRINKLER DRIVER Impressions 10/09/2024 10:37 PM SPRINKLER DRIVER No failure. Electronically signed by: Elena Bower M.D. Narrative 10/09/2024 10:37 PM SPRINKLER DRIVER EXAMINATION: XR CHEST 1 VIEW HISTORY: The patient is a 79-year-old male who has had cardiac surgery. Comparison made with the study done at 4:27 PM. TECHNIQUE: AP portable view of the chest. FINDINGS: Bilateral thoracostomy tubes and mediastinal drain in place. The distal tip of the Racine-Fausto catheter is in the proximal right main [...] in place. The distal tip of the Racine-Fausto catheter is in the proximal right main pulmonary artery. Endotracheal tube and nasogastric tubes are in satisfactory position. Heart not enlarged. No failure. No active infiltrate. IMPRESSION: No failure. Electronically signed by: Elena Bower M.D. Guillermo Mayes MD IMG XR PROCEDURES Final Resu lt * POCT glucose (10/09/2024 7:06 PM SPRINKLER DRIVER) [facility] Signature Glucose, POC 128 70 - 199 mg/dL Blood 10/09/2024 7:06 PM SPRINKLER DRIVER 10/09/2024 7:06 PM SPRINKLER DRIVER Guillermo Mayes MD LAB POCT ORDERABLES - DEVICE Final Result Performing Organization Address City/[facility]/ZIP Co de Phone Number NICOLE IDALMIS [address] [place] [address] * Transfuse platelets (10/09/2024 7:00 PM SPRINKLER DRIVER) Blood Guillermo Mayes MD BLOOD TRANSFUSION ORDERABLES Final Result Performing Organization Address [facility] [place] [address] [address] Department [place] [address] * Transfuse cryoprecipitate (pooled units) (10/09/2024 7:00 PM SPRINKLER DRIVER) Blood Guillermo Mayes MD BLOOD TRANSFUSION ORDERABLES Final Result Performing Organization Address [facility] Co de Phone Number NICOLE RAYGOZA [address] [address] [place] [address] * Transfuse cryoprecipitate (pooled units) (10/09/2024 6:34 PM SPRINKLER DRIVER) Blood Guillermo Mayes MD BLOOD TRANSFUSION ORDERABLES Final Result Performing Organization Address [facility] Co de Phone Number NICOLE IDALMIS [address] [address] [facility] [place] [address] * Critical Care (10/09/2024 5:28 PM SPRINKLER DRIVER) Case Schultz MD - 10/09/2024 5:28 PM SPRINKLER DRIVER Case Guerrero MD 10/10/2024 4:43 PM Critical [...] plan with the ICU team and other medical/sharepoint consultant staff, making frequent assessments and decisions [...] Result * POCT glucose (10/09/2024 5:23 PM SPRINKLER DRIVER) Glucose, POC 137 70 - 199 mg/dL Blood 10/09/2024 5:23 PM SPRINKLER DRIVER 10/09/2024 5:23 PM SPRINKLER DRIVER us Guillermo Mayes MD LAB POCT ORDERABLES - DEVICE Final Result Performing Organization Address City/[facility] Co de Phone Number NICOLE RAYGOZA [address] [address] [place] [address] * Prepare cryoprecipitate (pooled units): 2 Units (10/09/2024 5:10 PM SPRINKLER DRIVER) Product code [id number] Unit Number [id number] N CERNER CH Product Blood Type OPOS CERNER CH Dispense Status PRESUMED TRANSFUSED CERNER CH Product code [id number] CERNER CH Unit Number [id number]- J CERNER CH Product Blood Type OPOS CERNER CH Dispense Status PRESUMED TRANSFUSED CERNER CH Blood Venous blood specimen / Unknown 10/09/2024 5:10 PM SPRINKLER DRIVER Narrative CERNER CH - 10/09/2024 10:15 PM SPRINKLER DRIVER Other indication->post op cardiac bleeding Cryo # of [id number] Reasons:-Other (Specify)} us Guillermo Mayes MD BLOOD BANK PRODUCT ORDERABLE S Final Result Performing Organization Address [facility] Co de Phone Number NICOLE RAYGOZA [address] [address] [place] [address] * XR Chest 1 View - Portable (10/09/2024 5:05 PM SPRINKLER DRIVER) Anatomical Region Laterality Modality Body, Chest N/A Computed Radiogr aphy 10/09/2024 10:3 1 PM SPRINKLER DRIVER Impressions 10/09/2024 10:31 PM SPRINKLER DRIVER No failure. Electronically signed by: Elena Bower M.D. Narrative 10/09/2024 10:31 PM SPRINKLER DRIVER EXAMINATION: XR CHEST 1 VIEW HISTORY: The [...] stomach lumen. The distal tip of a Racine-Fausto catheter is in the proximal right main [...] stomach lumen. The distal tip of a Racine-Fausto catheter is in the proximal right main pulmonary artery. Cardiomegaly with no failure. No active infiltrate. IMPRESSION: No failure. Electronically signed by: Elena Bower M.D. Fatou Schwartz MD IMG XR PROCEDURES Final Result * (ABNORMAL) Calcium, ionized, whole blood (10/09/2024 4:25 PM SPRINKLER DRIVER) Pathologist [facility] Ca, ionized, bld 4.32(L) 4.50 - 5.10 mg/dL Blood 10/09/2024 4:25 PM SPRINKLER DRIVER 10/09/2024 4:45 PM SPRINKLER DRIVER Guillermo Mayes MD LAB BLOOD ORDERABLES Final R esult NICOLE [address] [address] [place] [address] * eGFR (10/09/2024 4:25 PM SPRINKLER DRIVER) eGFR 76 >=60 mL/min/1. 73 m2 Comment: [...] last reviewed 2021. Blood 10/09/2024 4:25 PM SPRINKLER DRIVER 10/09/2024 4:57 PM SPRINKLER DRIVER Fatou Schwartz MD LAB BLOOD ORDERABLES Final Res ult NICOLE [address] [place] [address] * (ABNORMAL) aPTT (10/09/2024 4:25 PM SPRINKLER DRIVER) aPTT 58(H) 28 - 38 sec Comment: Interpretive Data Heparin therapeutic range: 66.0 - 100.0 seconds. Range based on correlation with therapeutic heparin activity range of 0.3 - 0.7 Units/mL. Current interpretive data was last revised on 2023. Blood 10/09/2024 4:25 PM SPRINKLER DRIVER 10/09/2024 4:46 PM SPRINKLER DRIVER Fatou Schwartz MD LAB [place]LOOD [place] [address] [address] [place] [address] * (ABNORMAL) Protime-INR (10/09/2024 4:25 PM SPRINKLER DRIVER) Pathologist [facility] PT 13.8(H) 9.7 - 13.0 sec INR 1.27(H) 0.90 - 1.20 [facility] Comment: Interpretive data Oral anticoagulant therapeutic ranges: Venous thromboembolism prophylaxis or treatment: 2.0-3.0 CARDIOLOGY Standard range: 2.0-3.0 High-intensity range: 2.5-3.5 Refer to indication-specific guidelines for appropriate target ranges for prosthetic heart valve replacement. Current interpretive data was last revised on 2019. Blood 10/09/2024 4:25 PM SPRINKLER DRIVER 10/09/2024 4:46 PM SPRINKLER DRIVER Fatou Schwartz MD LAB BLOOD ORDERABLES Final Res ult Performing Organization Address [facility] Co de Phone Number [facility] [address] [address] [facility] [place] [address] * Fibrinogen (10/09/2024 4:25 PM SPRINKLER DRIVER) [facility] Fibrinogen 178 170 - 400 mg/dL Blood 10/09/2024 4:25 PM SPRINKLER DRIVER 10/09/2024 4:56 PM SPRINKLER DRIVER Guillermo Mayes MD LAB BLOOD ORDERABLES Final R esult Performing Organization Address [facility] de Phone Number [facility] [address] [address] [facility] [place] [address] * (ABNORMAL) CBC without differential (10/09/2024 4:25 PM SPRINKLER DRIVER) [facility] WBC 7.8 3.8 - 9.9 K/cumm Hgb 10.6(L) 13.0 - 17.5 g/dL [facility] Comment:Hemoglobin delta due to surgical procedure. Hct 30.7(L) 38.9 - 50.3 % [facility] Plt 106(L) 150 - 400 K/cumm [facility] MPV 10.6 9.1 - 12.3 fL [facility] RBC 3.51(L) 4.30 - 5.80 M/cumm CERNER CH MCV 87.5 81.3 - 96.4 fL CERNER CH MCH 30.2 27.1 - 33.3 pg CERNER MCHC 34.5 32.3 - 35.7 g/dL C[facility]ER CH RDW CV 13.2 11.1 - 14.9 % CERNER CH RDW SD 41.8 35.7 - 48.1 fL [facility] CH NRBC abs 0.00 0.00 - 0.01 K/cumm CERNER CH Blood 10/09/2024 4:25 PM SPRINKLER DRIVER 10/09/2024 4:46 PM SPRINKLER DRIVER Fatou Schwartz MD LAB BLOOD ORDERABLES Final Res ult Performing Organization Address [facility]/ZIP Co de Phone Number [facility] [address] [address] [place] [address] * Phosphorus (10/09/2024 4:25 PM SPRINKLER DRIVER) Phosphorus, pl 2.9 2.3 - 4.5 mg/dL Blood 10/09/2024 4:25 PM SPRINKLER DRIVER 10/09/2024 4:53 PM SPRINKLER DRIVER Yvette Russell [employer] LAB BLOOD ORDERABLES Fin al Result Performing Organization Address [facility] Co de Phone Number [facility] [address] [address] Department [place] [address] * Magnesium (10/09/2024 4:25 PM SPRINKLER DRIVER) Magnesium 2.4 1.4 - 2.5 mg/dL Blood 10/09/2024 4:25 PM SPRINKLER DRIVER 10/09/2024 4:45 PM SPRINKLER DRIVER Guillermo Mayes MD LAB BLOOD ORDERABLES Final R esult Performing Organization Address [facility] Co de Phone Number [facility] [address] [address] Department of [employer] [place], [place] [id number] * (ABNORMAL) Blood gas, arterial (10/09/2024 4:25 PM SPRINKLER DRIVER) pH, Art 7.44 7.35 - 7.45 PCO2, [...] % CERNER CH Blood 10/09/2024 4:25 PM SPRINKLER DRIVER 10/09/2024 4:45 PM SPRINKLER DRIVER Fatou Schwartz MD LAB BLOOD ORDERABLES Final Res ult [facility] [address] [address] [place] [address] * (ABNORMAL) Basic metabolic panel (10/09/2024 4:25 PM SPRINKLER DRIVER) Sodium 140 135 - 145 mmol/L Potassium, pl 3.8 3.3 - 4.9 mmol/L [facility] CH Chloride 109 97 - 110 mmol/L [facility] CH CO2 19(L) 22 - 32 mmol/L [facility] CH Anion gap 12 2 - 15 mmol/L [facility] CH BUN 16 6 - 25 mg/dL [facility] Creatinine 1.00 0.80 - 1.30 mg/dL C[facility]ER Glucose 142 70 - 199 mg/dL [facility] CH Comment: [...] 2022. Calcium 7.7(L) 8.5 - 10.3 mg/dL CERNER CH Blood 10/09/2024 4:25 PM SPRINKLER DRIVER 10/09/2024 4:45 PM SPRINKLER DRIVER Fatou Schwartz MD LAB BLOOD ORDERABLES Final Res ult [place] RAYGOZA [address] [address] [facility] [place] [address] * POCT glucose (10/09/2024 4:07 PM SPRINKLER DRIVER) Glucose, POC 133 70 - 199 mg/dL Blood 10/09/2024 4:07 PM SPRINKLER DRIVER 10/09/2024 4:07 PM SPRINKLER DRIVER Fatou Schwartz MD LAB POCT ORDERABLES - DEVICE F inal Result Performing Organization Address [facility] Co de Phone Number LORINACE RAYGOZA [address] [address] Department [place] [address] * Prepare platelets: 2 Units (10/09/2024 3:37 PM SPRINKLER DRIVER) Product code [id number] Unit Number [id number]- A CERNER CH Product Blood Type OPOS CERNER CH Dispense Status PRESUMED TRANSFUSED CERNER CH Product code [id number] CERNER CH Unit Number [id number]- S CERNER CH Product Blood Type ABPO CERNER CH Dispense Status PRESUMED TRANSFUSED CERNER CH Blood Venous blood specimen / Unknown 10/09/2024 3:37 PM SPRINKLER DRIVER Narrative CERNER CH - 10/10/2024 10:15 AM SPRINKLER DRIVER Other indication->bleeding post cardiovascular surgery Are special requirements needed? (all products are leukoreduced)->No Date required:-[id number] PLT # of Units:-2-Units Reasons:-Other (Specify)} Guillermo Mayes MD BLOOD BANK PRODUCT ORDERABLE S Final Result Performing Organization Address [facility] Co de Phone Number NICOLE RAYGOZA [address] [address] [facility] [place] [address] * POC Activated Clotting Time, High Range (10/09/2024 3:23 PM SPRINKLER DRIVER) ACT 104 87 - 138 sec Blood 10/09/2024 3:23 PM SPRINKLER DRIVER 10/09/2024 3:23 PM SPRINKLER DRIVER us Fatou Schwartz MD LAB BLOOD ORDERABLES Final Res ult [facility] [address] [address] [place] [address] * (ABNORMAL) POC Blood Gas and Chemistries, Arterial - (10/09/2024 3:18 PM SPRINKLER DRIVER) pH, Art POC 7.38 7.35 - 7.45 [...] g/dL [facility]ER CH Blood 10/09/2024 3:18 PM SPRINKLER DRIVER 10/09/2024 3:18 PM SPRINKLER DRIVER Fatou Schwartz MD LAB POCT ORDERABLES - DEVICE F inal Result Performing Organization Address [facility] Co de Phone Number NICOLE RAYGOZA [address] [address] [place], [place] [id number] * (ABNORMAL) aPTT (10/09/2024 3:00 PM SPRINKLER DRIVER) aPTT 42(H) 28 - 38 sec Comment: Interpretive Data Heparin therapeutic range: 66.0 - 100.0 seconds. Range based on correlation with therapeutic heparin activity range of 0.3 - 0.7 Units/mL. Current interpretive data was last revised on 2023. Blood 10/09/2024 3:00 PM SPRINKLER DRIVER 10/09/2024 3:06 PM SPRINKLER DRIVER Result [facility] Guillermo Mayes MD LAB BLOOD ORDERABLES Final R esult Performing Organization Address [facility] Co de Phone Number NICOLE RAYGOZA [address] [address] [facility] [place] [address] * (ABNORMAL) Protime-INR (10/09/2024 3:00 PM SPRINKLER DRIVER) PT 16.7(H) 9.7 - 13.0 sec INR 1.53(H) 0.90 - 1.20 NICOLE Comment: Interpretive data Oral anticoagulant therapeutic ranges: Venous thromboembolism prophylaxis or treatment: 2.0-3.0 CARDIOLOGY Standard range: 2.0-3.0 High-intensity range: 2.5-3.5 Refer to indication-specific guidelines for appropriate target ranges for prosthetic heart valve replacement. Current interpretive data was last revised on 2019. Blood 10/09/2024 3:00 PM SPRINKLER DRIVER 10/09/2024 3:06 PM SPRINKLER DRIVER Result [facility] Guillermo Mayes MD LAB BLOOD ORDERABLES Final R esult Performing Organization Address [facility] Co de Phone Number NICOLE RAYGOZA [address] [address] [facility] [employer] [place], [place] [phone] * Fibrinogen (10/09/2024 3:00 PM SPRINKLER DRIVER) Fibrinogen 188 170 - 400 mg/dL Blood 10/09/2024 3:00 PM SPRINKLER DRIVER 10/09/2024 3:06 PM SPRINKLER DRIVER Guillermo Mayes MD LAB BLOOD ORDERABLES Final R esult Performing Organization Address [facility] Co de Phone Number NICOLE RAYGOZA [address] [address] Department [place] [address] * (ABNORMAL) Platelet count (10/09/2024 3:00 PM SPRINKLER DRIVER) Plt 114(L) 150 - 400 K/cumm Blood 10/09/2024 3:00 PM SPRINKLER DRIVER 10/09/2024 3:06 PM SPRINKLER DRIVER Guillermo Mayes MD LAB BLOOD ORDERABLES Final R esult Performing Organization Address [facility] Co de Phone Number NICOLE [address] [address] Department [place] [address] * Transfuse platelets (10/09/2024 2:38 PM SPRINKLER DRIVER) Blood Williams Carrillo MD BLOOD TRANSFUSION ORDERABLES Fin al Result Performing Organization Address [facility] de Phone Number NICOLE RAYGOZA [address] [address] Department [place] [address] * (ABNORMAL) POC Blood Gas and Chemistries, Arterial - (10/09/2024 2:09 PM SPRINKLER DRIVER) pH, Art POC 7.41 7.35 - 7.45 [...] g/dL [facility] Blood 10/09/2024 2:09 PM SPRINKLER DRIVER 10/09/2024 2:09 PM SPRINKLER DRIVER Fatou Schwartz MD LAB POCT ORDERABLES - DEVICE F inal Result Performing Organization Address [facility]/ZIP Co de Phone Number [facility] [address] [address] [place] [address] * Transfuse plasma (10/09/2024 2:07 PM SPRINKLER DRIVER) Blood Williams Carrillo MD BLOOD TRANSFUSION ORDERABLES Fin al Result Performing Organization Address [facility]/ZIP Co de Phone Number [facility] [address] [address] Department [place] [address] * Transfuse platelets (10/09/2024 2:03 PM SPRINKLER DRIVER) Blood Williams Carrillo MD BLOOD TRANSFUSION ORDERABLES Kedar diogo Result - Final Performing Organization Address [facility] Co de Phone Number [facility] [address] [address] Department [place] [address] * POC Activated Clotting Time, High Range (10/09/2024 2:03 PM SPRINKLER DRIVER) ACT 129 87 - 138 sec Blood 10/09/2024 2:03 PM SPRINKLER DRIVER 10/09/2024 2:03 PM SPRINKLER DRIVER us Fatou Schwartz MD LAB [place]OD [place] [address] [address] [place] [address] * (ABNORMAL) POC Blood Gas and Chemistries, Arterial - (10/09/2024 1:34 PM SPRINKLER DRIVER) pH, Art POC 7.37 7.35 - 7.45 [...] g/dL [facility] Blood 10/09/2024 1:34 PM SPRINKLER DRIVER 10/09/2024 1:34 PM SPRINKLER DRIVER Fatou Schwartz MD LAB POCT ORDERABLES - DEVICE F inal Result Performing Organization Address City/[facility]/ZIP Co de Phone Number NICOLE RAYGOZA [address] [address] Department [place] [address] * (ABNORMAL) POC Activated Clotting Time, High Range (10/09/2024 1:31 PM SPRINKLER DRIVER) Pathologist [facility] ACT 729(H) 87 - 138 sec Blood 10/09/2024 1:31 PM SPRINKLER DRIVER 10/09/2024 1:31 PM SPRINKLER DRIVER Fatou Schwartz MD LAB BLOOD ORDERABLES Final Res ult Performing Organization Address [facility] Co de Phone Number NICOLE RAYGOZA [address] [address] Department [place] [address] * (ABNORMAL) POC Blood Gas and Chemistries, Arterial - (10/09/2024 1:08 PM SPRINKLER DRIVER) pH, Art POC 7.39 7.35 - 7.45 [...] Hct, POC 30.0(L) 38.9 - 50.3 % [facility] Total Hb, POC 9.9(L) 13.0 - 17.5 g/dL [facility] Blood 10/09/2024 1:08 PM SPRINKLER DRIVER 10/09/2024 1:08 PM SPRINKLER DRIVER Fatou Schwartz MD LAB POCT ORDERABLES - DEVICE F inal Result Performing Organization Address [facility] Co de Phone Number LORINACE [address] [address] Department [employer] [place], [place] [phone] * (ABNORMAL) POC Activated Clotting Time, High Range (10/09/2024 1:06 PM SPRINKLER DRIVER) ACT 546(H) 87 - 138 sec Blood 10/09/2024 1:06 PM SPRINKLER DRIVER 10/09/2024 1:06 PM SPRINKLER DRIVER Fatou Schwartz MD LAB BLOOD ORDERABLES Final Res ult Performing Organization Address [facility] de Phone Number [facility] [address] [address] [place] [address] * (ABNORMAL) Platelet count (10/09/2024 1:05 PM SPRINKLER DRIVER) Plt 128(L) 150 - 400 K/cumm Blood 10/09/2024 1:05 PM SPRINKLER DRIVER 10/09/2024 1:10 PM SPRINKLER DRIVER Guillermo Mayes MD LAB BLOOD ORDERABLES Final R esult Performing Organization Address [facility] Co de Phone Number [facility] [address] [address] [facility] [place] [address] * (ABNORMAL) POC Blood Gas and Chemistries, Arterial - (10/09/2024 12:31 PM SPRINKLER DRIVER) pH, Art POC 7.39 7.35 - 7.45 [...] [facility] Blood 10/09/2024 12:3 1 PM SPRINKLER DRIVER 10/09/2024 12:31 PM SPRINKLER DRIVER Fatou Schwartz MD LAB POCT ORDERABLES - DEVICE F inal Result Performing Organization Address [facility]/ZIP Co de Phone Number NICOLE RAYGOZA [address] [address] Department [place] [address] * (ABNORMAL) POC Activated Clotting Time, High Range (10/09/2024 12:29 PM SPRINKLER DRIVER) ACT 567(H) 87 - 138 sec Blood 10/09/2024 12:2 9 PM SPRINKLER DRIVER 10/09/2024 12:29 PM SPRINKLER DRIVER Fatou Schwartz MD LAB BLOOD ORDERABLES Final Res ult NICOLE RAYGOZA [address] [address] [place] [address] * (ABNORMAL) POC Blood Gas and Chemistries, Arterial - (10/09/2024 11:59 AM SPRINKLER DRIVER) pH, Art POC 7.36 7.35 - 7.45 [...] [facility]ER CH Blood 10/09/2024 11:5 9 AM SPRINKLER DRIVER 10/09/2024 11:59 AM SPRINKLER DRIVER us Fatou Schwartz MD LAB POCT ORDERABLES - DEVICE F inal Result NICOLE RAYGOZA [address] [address] [place] [address] * (ABNORMAL) POC Activated Clotting Time, High Range (10/09/2024 11:57 AM SPRINKLER DRIVER) Pathologist [facility] ACT 673(H) 87 - 138 sec Blood 10/09/2024 11:5 7 AM SPRINKLER DRIVER 10/09/2024 11:57 AM SPRINKLER DRIVER Fatou Schwartz MD LAB BLOOD ORDERABLES Final Res ult [facility] [address] [address] [place] [address] * (ABNORMAL) POC Blood Gas and Chemistries, Arterial - (10/09/2024 11:29 AM SPRINKLER DRIVER) pH, Art POC 7.36 7.35 - 7.45 [...] [facility]ER CH Blood 10/09/2024 11:2 9 AM SPRINKLER DRIVER 10/09/2024 11:29 AM SPRINKLER DRIVER Fatou Schwartz MD LAB POCT ORDERABLES - DEVICE F inal Result NICOLE RAYGOZA [address] [address] [place] [address] * (ABNORMAL) POC Activated Clotting Time, High Range (10/09/2024 11:27 AM SPRINKLER DRIVER) ACT 564(H) 87 - 138 sec Blood 10/09/2024 11:2 7 AM SPRINKLER DRIVER 10/09/2024 11:27 AM SPRINKLER DRIVER us Fatou Schwartz MD LAB BLOOD ORDERABLES Final Res ult Performing Organization Address [facility] Co de Phone Number NICOLE RAYGOZA [address] [address] [place] [address] * (ABNORMAL) POC Blood Gas and Chemistries, Arterial - (10/09/2024 10:55 AM SPRINKLER DRIVER) pH, Art POC 7.32(L) 7.35 - 7.45 [...] Hb, POC 10.1(L) 13.0 - 17.5 g/dL [facility] Blood 10/09/2024 10:5 5 AM SPRINKLER DRIVER 10/09/2024 10:55 AM SPRINKLER DRIVER Fatou Schwartz MD LAB POCT ORDERABLES - DEVICE F inal Result Performing Organization Address [facility] Co de Phone Number [facility] [address] [facility] Department of [facility] [place], [place] [phone] * (ABNORMAL) POC Activated Clotting Time, High Range (10/09/2024 10:53 AM SPRINKLER DRIVER) ACT 539(H) 87 - 138 sec Blood 10/09/2024 10:5 3 AM SPRINKLER DRIVER 10/09/2024 10:53 AM SPRINKLER DRIVER Fatou Schwartz MD LAB BLOOD ORDERABLES Final Res ult Performing Organization Address [facility] Co de Phone Number [facility] [address] [facility] [place] [address] * Surgical pathology (10/09/2024 10:29 AM SPRINKLER DRIVER) Tissue specimen (specimen) (Heart Valve) 10/09/2024 12:38 PM SPRINKLER DRIVER Narrative PATHOLOGY CH - 10/11/2024 3:54 PM SPRINKLER DRIVER EPIC results best viewed via link to PDF [facility] Department of Pathology [address] [place] [id number] Note to Patients: This report may contain [...] Final Report Patient Name: TREVOR SHAW Address: [address] [place] [address] Gender: M : 1945 (Age: 79) Service: Cardiothoracic Location: Hospital #: [id number] Patient Type: [facility] Taken: 10/09/2024 Received: 10/10/2024 Accessioned: 10/10/2024 [...] degeneration. 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 It has not been cleared or approved by the U. S. Food and Drug Administration. Note for decalcified specimens: This assay has not been validated on decalcified tissues. Results should be interpreted with caution given the possibility of false negativity on decalcified specimens us Guillermo Mayes MD LAB PATHOLOGY [place] [address] [place] [address] * (ABNORMAL) POC Blood Gas and Chemistries, Arterial - (10/09/2024 10:00 AM SPRINKLER DRIVER) pH, Art POC 7.35 7.35 - 7.45 [...] Hb, POC 13.6 13.0 - 17.5 g/dL [facility] Blood 10/09/2024 10:0 0 AM SPRINKLER DRIVER 10/09/2024 10:00 AM SPRINKLER DRIVER Fatou Schwartz MD LAB POCT ORDERABLES - DEVICE F inal Result Performing Organization Address [facility] Co de Phone Number NICOLE [address] [address] Department [place] [address] * (ABNORMAL) POC Activated Clotting Time, High Range (10/09/2024 9:54 AM SPRINKLER DRIVER) ACT 619(H) 87 - 138 sec Blood 10/09/2024 9:54 AM SPRINKLER DRIVER 10/09/2024 9:54 AM SPRINKLER DRIVER Fatou Schwartz MD LAB BLOOD ORDERABLES Final Res ult Performing Organization Address [facility] de Phone Number LORINACE [address] [address] Manuel Department [place] [address] * BW AN SHEATH INTRODUCER PERFORMABLE, PULMONARY ARTERY CATH (10/09/2024 9:32 AM SPRINKLER DRIVER) Narrative Brannon Jeffers AA - 10/09/2024 9:32 AM SPRINKLER DRIVER Brannon Jeffers AA 10/09/2024 9:34 AM Central [...] lt * Arterial Line (10/09/2024 9:23 AM SPRINKLER DRIVER) Narrative Brannon Jeffers AA - 10/09/2024 9:23 AM SPRINKLER DRIVER Brannon Jeffers AA 10/09/2024 9:32 AM Arterial Line Patient location: pre-op holding Indication: continuous blood pressure monitoring and blood sampling needed Staff: Supervising provider: Williams Carrillo MD Placed by: AA: Brannon Jeffers AA Procedure prep: Prep solution: [...] well with no complications Additional comments: Kristel CUELLOS placed A line under direct supervision us Williams Carrillo MD ANESTHESIA ORDERABLES Edited Res ult - Final * GENEVA (10/09/2024 9:18 AM SPRINKLER DRIVER) Anatomical Region Laterality Modality Other Narrative 10/09/2024 9:18 AM SPRINKLER DRIVER Williams Carrillo MD 10/09/2024 9:20 AM GENEVA [...] inferior: normal 16- Apical septal: normal 17- [place]: normal Valves: Aortic Valve: Annulus: normal Leaflet [...] MD ANESTHESIA ORDERABLES Final Resu lt * MS AN ELECTIVE ENDOTRACHEAL AIRWAY (10/09/2024 9:07 AM SPRINKLER DRIVER) Narrative Brannon Jeffers AA - 10/09/2024 9:07 AM SPRINKLER DRIVER Brannon Jeffers AA 10/09/2024 9:32 AM Airway [...] and Chemistries, Arterial - (10/09/2024 8:49 AM SPRINKLER DRIVER) pH, Art POC 7.41 7.35 - 7.45 [...] g/dL [facility] Blood 10/09/2024 8:49 AM SPRINKLER DRIVER 10/09/2024 8:49 AM SPRINKLER DRIVER Fatou Schwartz MD LAB POCT ORDERABLES - DEVICE F inal Result Performing Organization Address [facility] Co de Phone Number NICOLE [address] [address] [place] [address] * POC Activated Clotting Time, High Range (10/09/2024 8:46 AM SPRINKLER DRIVER) Pathologist [facility] ACT 101 87 - 138 sec Blood 10/09/2024 8:46 AM SPRINKLER DRIVER 10/09/2024 8:46 AM SPRINKLER DRIVER Fatou Schwartz MD LAB BLOOD ORDERABLES Final Res ult Performing Organization Address [facility] de Phone Number [facility] [address] [address] [place] [address] * (ABNORMAL) aPTT (10/09/2024 4:30 AM SPRINKLER DRIVER) Pathologist [facility] aPTT 54(H) 28 - 38 sec Comment: Interpretive Data Heparin therapeutic range: 66.0 - 100.0 seconds. Range based on correlation with therapeutic heparin activity range of 0.3 - 0.7 Units/mL. Current interpretive data was last revised on 2023. Blood 10/09/2024 4:30 AM SPRINKLER DRIVER 10/09/2024 5:44 AM SPRINKLER DRIVER Fatou Schwartz MD LAB BLOOD ORDERABLES Final Res ult Performing Organization Address [facility] Co de Phone Number NICOLE [address] [place] [address] * CBC without differential (10/09/2024 4:30 AM SPRINKLER DRIVER) WBC 5.0 3.8 - 9.9 K/cumm Hgb 14.4 13.0 - 17.5 g/dL [facility] Hct 42.9 38.9 - 50.3 % [facility] Plt 158 150 - 400 K/cumm [facility] MPV 11.3 9.1 - 12.3 fL [facility] RBC 4.76 4.30 - 5.80 M/cumm [facility] MCV 90.1 81.3 - 96.4 fL [facility] MCH 30.3 27.1 - 33.3 pg [facility] MCHC 33.6 32.3 - 35.7 g/dL [facility] RDW CV 13.2 11.1 - 14.9 % [facility] RDW SD 42.9 35.7 - 48.1 fL [facility] NRBC abs 0.00 0.00 - 0.01 K/cumm [facility] Blood 10/09/2024 4:30 AM SPRINKLER DRIVER 10/09/2024 5:43 AM SPRINKLER DRIVER Narrative [facility] - 10/09/2024 6:14 AM SPRINKLER DRIVER While on heparin infusion Fatou Schwartz MD LAB BLOOD ORDERABLES Final Res ult Performing Organization Address [facility]/ZIP Co de Phone Number LORINACE RAYGOZA [address] [place] [address] * (ABNORMAL) aPTT (10/08/2024 6:57 PM SPRINKLER DRIVER) aPTT 72(H) 28 - 38 sec Comment: Interpretive Data Heparin therapeutic range: 66.0 - 100.0 seconds. Range based on correlation with therapeutic heparin activity range of 0.3 - 0.7 Units/mL. Current interpretive data was last revised on 2023. Blood 10/08/2024 6:57 PM SPRINKLER DRIVER 10/08/2024 7:10 PM SPRINKLER DRIVER Fatou Schwartz MD LAB BLOOD ORDERABLES Final Res ult Performing Organization Address [facility] de Phone Number NICOLE [address] [address] [facility] [place] [address] * (ABNORMAL) aPTT (10/08/2024 12:52 PM SPRINKLER DRIVER) aPTT 49(H) 28 - 38 sec Comment: Interpretive Data Heparin therapeutic range: 66.0 - 100.0 seconds. Range based on correlation with therapeutic heparin activity range of 0.3 - 0.7 Units/mL. Current interpretive data was last revised on 2023. Blood 10/08/2024 12:5 2 PM SPRINKLER DRIVER 10/08/2024 1:06 PM SPRINKLER DRIVER Fatou Schwartz MD LAB BLOOD ORDERABLES Final Res ult Performing Organization Address [facility] de Phone Number NICOLE [address] [address] [facility] [place] [address] * Differential, auto (10/08/2024 11:35 AM SPRINKLER DRIVER) Neutrophil abs 3.1 1.5 - 6.5 K/cumm Imm gran abs 0.0 0.0 - 0.1 K/cumm [facility] Lymphocyte abs 1.3 0.8 - 3.3 K/cumm [facility] Monocyte abs 0.5 0.2 - 0.8 K/cumm [facility] Eosinophil abs 0.2 0.0 - 0.5 K/cumm [facility] Basophil abs 0.1 0.0 - 0.1 K/cumm [facility] Neutrophil pct 60.5 % [facility] Comment: Interpretive Data Percent cell count reference ranges are not reported, since discordance with absolute values may lead to misinterpretation of CBC data. Current Interpretive Data was last revised on 2017. Imm gran pct 0.4 % CERNER Comment: Interpretive Data Percent cell count reference ranges are not reported, since discordance with absolute values may lead to misinterpretation of CBC data. Current Interpretive Data was last revised on 2017. Lymphocyte pct 24.6 % C[facility]ER Comment: Interpretive Data Percent cell count reference ranges are not reported, since discordance with absolute values may lead to misinterpretation of CBC data. Current Interpretive Data was last revised on 2017. Monocyte pct 9.4 % C[facility]ER Comment: Interpretive Data Percent cell count reference ranges are not reported, since discordance with absolute values may lead to misinterpretation of CBC data. Current Interpretive Data was last revised on 2017. Eosinophil pct 3.9 % [facility]ER Comment: Interpretive Data Percent cell count reference ranges are not reported, since discordance with absolute values may lead to misinterpretation of CBC data. Current Interpretive Data was last revised on 2017. Basophil pct 1.2 % [facility] Comment: Interpretive Data Percent cell count reference ranges are not reported, since discordance with absolute values may lead to misinterpretation of CBC data. Current Interpretive Data was last revised on 2017. Blood 10/08/2024 11:3 5 AM SPRINKLER DRIVER 10/08/2024 12:43 PM SPRINKLER DRIVER us Jewel Heart MD LAB BLOOD ORDERABLES Kamla l Result NICOLE RAYGOZA [address] [address] Department [place] [address] * Check Sample (10/08/2024 11:35 AM SPRINKLER DRIVER) ABO Rh O Positive [facility] OTHER 10/08/2024 11:3 5 AM SPRINKLER DRIVER 10/08/2024 12:43 PM SPRINKLER DRIVER us Fatou Schwartz MD LAB BLOOD ORDERABLES Final Res ult NICOLE RAYGOZA [address] [address] [place] [address] * CBC with auto differential (10/08/2024 11:35 AM SPRINKLER DRIVER) [facility] WBC 5.1 3.8 - 9.9 K/cumm Hgb 14.8 13.0 - 17.5 g/dL [facility] Hct 45.0 38.9 - 50.3 % [facility] Plt 168 150 - 400 K/cumm [facility] MPV 10.9 9.1 - 12.3 fL [facility] RBC 4.90 4.30 - 5.80 M/cumm [facility] MCV 91.8 81.3 - 96.4 fL [facility] MCH 30.2 27.1 - 33.3 pg [facility] MCHC 32.9 32.3 - 35.7 g/dL [facility] RDW CV 13.2 11.1 - 14.9 % [facility] RDW SD 44.5 35.7 - 48.1 fL [facility] NRBC abs 0.00 0.00 - 0.01 K/cumm [facility] Blood 10/08/2024 11:3 5 AM SPRINKLER DRIVER 10/08/2024 12:43 PM SPRINKLER DRIVER Jewel Heart MD LAB BLOOD ORDERABLES Kamla chen Result Performing Organization Address [facility] de Phone Number [facility] [address] [facility] [place] [address] * (ABNORMAL) aPTT (10/08/2024 11:35 AM SPRINKLER DRIVER) [facility] aPTT 57(H) 28 - 38 sec Comment: Interpretive Data Heparin therapeutic range: 66.0 - 100.0 seconds. Range based on correlation with therapeutic heparin activity range of 0.3 - 0.7 Units/mL. Current interpretive data was last revised on 2023. Blood 10/08/2024 11:3 5 AM SPRINKLER DRIVER 10/08/2024 12:43 PM SPRINKLER DRIVER Fatou Schwartz MD LAB BLOOD ORDERABLES Final Res ult Performing Organization Address City/[facility] de Phone Number NICOLE RAYGOZA [address] [address] Department [place] [address] * Type and screen (10/08/2024 11:35 AM SPRINKLER DRIVER) Nani, indirect Negative ABO Rh O Positive [facility] Blood 10/08/2024 11:3 5 AM SPRINKLER DRIVER 10/08/2024 12:44 PM SPRINKLER DRIVER Narrative NICOLE - 10/08/2024 1:20 PM SPRINKLER DRIVER Has the patient had Daratumumab or Isatuximab in the past 6 months?->Unknown Migdalia Salcedo NP LAB BLOOD BANK TEST ORDERA BLES Final Result Performing Organization Address [facility] Phone Number NICOLE RAYGOZA [address] [address] [facility] [place] [address] * Prepare platelets: 2 Units (10/08/2024 10:57 AM SPRINKLER DRIVER) [facility] Product code [id number] Unit Number [id number] [facility] Product Blood Type OPOS [facility] Dispense Status PRESUMED TRANSFUSED [facility] Product code [id number] [facility] Unit Number [id number] [facility] Product Blood Type APOS [facility] Dispense Status PRESUMED TRANSFUSED [facility] Blood Venous blood specimen / Unknown 10/08/2024 10:57 AM SPRINKLER DRIVER Narrative NICOLE - 10/09/2024 10:15 PM SPRINKLER DRIVER Specify Procedure:->CABG AVR Are special requirements needed? (all products are leukoreduced)->No Date required:-[id number] PLT # of Units:-2-Units Reasons:-Hold for procedure (specify procedure)} Migdalia Salcedo NP BLOOD BANK PRODUCT ORDERAB LES Final Result Performing Organization Address [facility] de Phone Number NICOLE RAYGOZA [address] [address] [facility] [place] [address] * Prepare plasma: 2 Units Standard plasma (10/08/2024 10:57 AM SPRINKLER DRIVER) Product code [id number] Unit Number [id number] CERNER CH Product Blood Type APOS CERNER CH Dispense Status PRESUMED TRANSFUSED CERNER CH Blood Venous blood specimen / Unknown 10/08/2024 10:57 AM SPRINKLER DRIVER Narrative CERNER CH - 10/09/2024 10:15 PM SPRINKLER DRIVER Specify Procedure:->CABG AVR Is this plasma order intended for a COVID-19 patient as convalescent plasma?->Standard plasma Special Requirements Needed?->No Date required:-20241009 FFP # of Units:-2-Units Reasons:-Hold for procedure (specify procedure)} Migdalia Salcedo NP BLOOD BANK PRODUCT ORDERAB LES Final Result NICOLE RAYGOZA [address] [address] Department [place] [address] * Prepare RBC: 4 Units (10/08/2024 10:57 AM SPRINKLER DRIVER) Product code [id number] Unit Number [id number] 7-7 CERNER CH Product Blood Type OPOS CERNER CH Dispense Status RETURNED CERNER CH Product code [id number] CERNER CH Unit Number [id number] 5-G CERNER CH Product Blood Type OPOS CERNER CH Dispense Status RETURNED CERNER CH Product code [id number] CERNER CH Unit Number [id number] 2-* CERNER CH Product Blood Type OPOS CERNER CH Dispense Status RETURNED CERNER CH Product code [id number] CERNER CH Unit Number [id number] 9-N CERNER CH Product Blood Type OPOS CERNER CH Dispense Status RETURNED CERNER CH Blood 10/08/2024 10:5 7 AM SPRINKLER DRIVER Narrative CERNER CH - 10/12/2024 12:10 AM SPRINKLER DRIVER Specify Procedure:->CABG AVR Are special requirements needed? (All products are leukoreduced and CMV- safe)- >No Date required:-20241009 LRRBC # of [id number] Reasons:-Hold for procedure (specify procedure)} Migdalia Salcedo [employer] DEVELOPER BLOOD BANK PRODUCT ORDERAB LES Final Result Performing Organization Address [facility]/ZIP Co de Phone Number NICOLE RAYGOZA [address] [address] Liu [facility] [place] [address] * (ABNORMAL) aPTT (10/08/2024 3:57 AM SPRINKLER DRIVER) aPTT 48(H) 28 - 38 sec Comment: Interpretive Data Heparin therapeutic range: 66.0 - 100.0 seconds. Range based on correlation with therapeutic heparin activity range of 0.3 - 0.7 Units/mL. Current interpretive data was last revised on 2023. Blood 10/08/2024 3:57 AM SPRINKLER DRIVER 10/08/2024 4:50 AM SPRINKLER DRIVER us Fatou Schwartz MD LAB BLOOD ORDERABLES Final Res ult Performing Organization Address [facility] Co de Phone Number NICOLE RAYGOZA [address] [address] Liu [facility] [place] [address] * (ABNORMAL) aPTT (10/07/2024 7:05 AM SPRINKLER DRIVER) aPTT 78(H) 28 - 38 sec Comment: Interpretive Data Heparin therapeutic range: 66.0 - 100.0 seconds. Range based on correlation with therapeutic heparin activity range of 0.3 - 0.7 Units/mL. Current interpretive data was last revised on 2023. Blood 10/07/2024 7:05 AM SPRINKLER DRIVER 10/07/2024 7:12 AM SPRINKLER DRIVER us Guillermo Mayes MD LAB BLOOD ORDERABLES Final R esult Performing Organization Address City/[facility]/ZIP Co de Phone Number NICOLE RAYGOZA [address] [address] Liu [facility] [place] [address] * XR Chest 1 View (10/06/2024 9:13 AM SPRINKLER DRIVER) Anatomical Region Laterality Modality Body, Chest N/A Computed Radiogr aphy 10/06/2024 9:39 AM SPRINKLER DRIVER Impressions 10/06/2024 9:39 AM SPRINKLER DRIVER No active disease. Electronically signed by: Elena Bower M.D. Narrative 10/06/2024 9:39 AM SPRINKLER DRIVER EXAMINATION: XR CHEST 1 VIEW HISTORY: The [...] disease. Electronically signed by: Elena Bower M.D. Migdalia Salcedo [employer] DEVELOPER IMG XR PROCEDURES Final Re sult * (ABNORMAL) aPTT (10/06/2024 4:53 AM SPRINKLER DRIVER) aPTT 86(H) 28 - 38 sec Comment: Interpretive Data Heparin therapeutic range: 66.0 - 100.0 seconds. Range based on correlation with therapeutic heparin activity range of 0.3 - 0.7 Units/mL. Current interpretive data was last revised on 2023. Blood 10/06/2024 4:53 AM SPRINKLER DRIVER 10/06/2024 5:25 AM SPRINKLER DRIVER Fatou Schwartz MD LAB BLOOD ORDERABLES Final Res ult NICOLE [address] [address] Liu Department [place] [address] * CBC without differential (10/06/2024 12:10 AM SPRINKLER DRIVER) WBC 6.3 3.8 - 9.9 K/cumm Hgb 14.5 13.0 - 17.5 g/dL NICOLE RAYGOZA Hct 42.6 38.9 - 50.3 % [facility] Plt 171 150 - 400 K/cumm [facility] MPV 10.9 9.1 - 12.3 fL [facility] RBC 4.75 4.30 - 5.80 M/cumm [facility] MCV 89.7 81.3 - 96.4 fL [facility] MCH 30.5 27.1 - 33.3 pg [facility] MCHC 34.0 32.3 - 35.7 g/dL [facility] RDW CV 13.0 11.1 - 14.9 % [facility] RDW SD 42.5 35.7 - 48.1 fL [facility] NRBC abs 0.00 0.00 - 0.01 K/cumm [facility] Blood 10/06/2024 12:1 0 AM SPRINKLER DRIVER 10/06/2024 12:16 AM SPRINKLER DRIVER Narrative [facility] - 10/06/2024 12:46 AM SPRINKLER DRIVER While on heparin infusion Fatou Schwartz MD LAB BLOOD ORDERABLES Final Res ult [facility] [address] [address] Liu Department of Laboratories [place] [phone] * Respiratory pathogen panel Nasopharyngeal (10/05/2024 3:21 PM SPRINKLER DRIVER) Pathologist [facility] Influenza A RNA Not Detected Not Detected Influenza B RNA Not Detected Not Detected [facility] RSV RNA Not Detected Not Detected [facility] COVID-19 RNA Not Detected Not Detected [facility] Coronavirus 229E RNA Not Detected Not Detected [facility] Coronavirus HKU1 RNA Not Detected Not Detected [facility] Coronavirus NL63 RNA Not Detected Not Detected [facility] Coronavirus OC43 RNA Not Detected Not Detected [facility] Adenovirus DNA Not Detected Not Detected [facility] Metapneumovirus RNA Not Detected Not Detected [facility] Rhinovirus/Enterov irus RNA Not Detected Not Detected [facility] Parainfluenza 1 RNA Not Detected Not Detected [facility] Parainfluenza 2 RNA Not Detected Not Detected [facility] Parainfluenza 3 RNA Not Detected Not Detected [facility] Parainfluenza 4 RNA Not Detected Not Detected [facility] B. pertussis DNA Not Detected Not Detected [facility] B. parapertussis DNA Not Detected Not Detected [facility] C. pneumoniae DNA Not Detected Not Detected [facility] M. pneumoniae DNA Not Detected Not Detected [facility] Comment: Interpretive Data The [employer] FilmArray Respiratory Panel (RP2.1) assay is a [...] assay has FDA clearance for testing of F[employer] ST[employer] PYTHON DEVELOPER swabs. The performance characteristics of this assay have been determined by [facility]. Current interpretive data was last revised on 2021. Nasopharyngeal 10/05/2024 3: 21 PM SPRINKLER DRIVER 10/05/2024 3:46 PM SPRINKLER DRIVER Narrative NICOLE RAYGOZA - 10/05/2024 5:20 PM SPRINKLER DRIVER Is the Patient experiencing symptoms consistent with COVID?->Unknown Surveillance testing for transplant patient?->No Carmen Peñaloza [employer] DEVELOPER LAB MICROBIOLOGY - GENERAL ORDER TEVIN Final Result NICOLE [address] [address] Liu Department [place] [address] CH * TRANSESOPHAGEAL ECHO (GENEVA) W DOPPLER/CF WO CONTRAST (10/05/2024 2:29 PM SPRINKLER DRIVER) BSA 2.42 m2 CONS SCIMAGE Anatomical Region Laterality Modality Other Narrative 10/05/2024 3:21 PM SPRINKLER DRIVER Transesophageal Echocardiogram Date of procedure: 10/05/2024 INDICATIONS: This is a 79 y.o. year old male who has no prior history of sedation or anesthesia problems. A GENVEA has been requested for assessment of aortic [...] 1.1-1.2 cm2. -Flaca Giles DO, FACC Carmen Anabela [employer] DEVELOPER CV ECHO PROCEDURES Final Result * (ABNORMAL) eGFR (10/05/2024 12:55 PM SPRINKLER DRIVER) eGFR 59(L) >=60 mL/min/1. 73 m2 Comment: [...] reviewed 2021. Blood 10/05/2024 12:5 5 PM SPRINKLER DRIVER 10/05/2024 1:14 PM SPRINKLER DRIVER us Flaca Giles DO LAB BLOOD ORDERABLES Kmala l Result NICOLE RAYGOZA [address] [address] Liu Department [place] [address] * Differential, auto (10/05/2024 12:55 PM SPRINKLER DRIVER) Neutrophil abs 3.5 1.5 - 6.5 K/cumm Imm gran abs 0.0 0.0 - 0.1 K/cumm NICOLE RAYGOZA Lymphocyte abs 1.3 0.8 - 3.3 K/cumm [facility] Monocyte abs 0.5 0.2 - 0.8 K/cumm [facility] Eosinophil abs 0.2 0.0 - 0.5 K/cumm [facility] Basophil abs 0.1 0.0 - 0.1 K/cumm [facility] Neutrophil pct 62.8 % [facility] Comment: Interpretive Data Percent cell count reference ranges are not reported, since discordance with absolute values may lead to misinterpretation of CBC data. Current Interpretive Data was last revised on 2017. Imm gran pct 0.4 % [facility] Comment: Interpretive Data Percent cell count reference ranges are not reported, since discordance with absolute values may lead to misinterpretation of CBC data. Current Interpretive Data was last revised on 2017. Lymphocyte pct 23.8 % [facility] Comment: Interpretive Data Percent cell count reference ranges are not reported, since discordance with absolute values may lead to misinterpretation of CBC data. Current Interpretive Data was last revised on 2017. Monocyte pct 8.2 % [facility] Comment: Interpretive Data Percent cell count reference ranges are not reported, since discordance with absolute values may lead to misinterpretation of CBC data. Current Interpretive Data was last revised on 2017. Eosinophil pct 3.5 % [facility] Comment: Interpretive Data Percent cell count reference ranges are not reported, since discordance with absolute values may lead to misinterpretation of CBC data. Current Interpretive Data was last revised on 2017. Basophil pct 1.3 % [facility] Comment: Interpretive Data Percent cell count reference ranges are not reported, since discordance with absolute values may lead to misinterpretation of CBC data. Current Interpretive Data was last revised on 2017. Blood 10/05/2024 12:5 5 PM SPRINKLER DRIVER 10/05/2024 1:14 PM SPRINKLER DRIVER us Flaca Giles DO LAB BLOOD ORDERABLES Kamla l Result NICOLE [address] [address] Liu Department [place] [address] * CBC with auto differential (10/05/2024 12:55 PM SPRINKLER DRIVER) Pathologist [facility] WBC 5.5 3.8 - 9.9 K/cumm Hgb 14.9 13.0 - 17.5 g/dL [facility] Hct 45.0 38.9 - 50.3 % CERNER Plt 170 150 - 400 K/cumm [facility] MPV 10.3 9.1 - 12.3 fL [facility] RBC 4.97 4.30 - 5.80 M/cumm [facility]ER MCV 90.5 81.3 - 96.4 fL [facility]ER MCH 30.0 27.1 - 33.3 pg [facility]ER MCHC 33.1 32.3 - 35.7 g/dL [facility] RDW CV 13.1 11.1 - 14.9 % [facility] CH RDW SD 43.0 35.7 - 48.1 fL [facility] NRBC abs 0.00 0.00 - 0.01 K/cumm [facility] Blood 10/05/2024 12:5 5 PM SPRINKLER DRIVER 10/05/2024 1:14 PM SPRINKLER DRIVER us Flaca Giles DO LAB BLOOD ORDERABLES Kamla l Result [facility] [address] [address] Department of Laboratories [place], [place] [id number] * Basic metabolic panel (10/05/2024 12:55 PM SPRINKLER DRIVER) Pathologist [facility] Sodium 139 135 - 145 mmol/L Potassium, pl 4.2 3.3 - 4.9 mmol/L [facility] Chloride 103 97 - 110 mmol/L [facility] CO2 25 22 - 32 mmol/L [facility] Anion gap 11 2 - 15 mmol/L [facility] BUN 18 6 - 25 mg/dL [facility] Creatinine 1.24 0.80 - 1.30 mg/dL [facility] Glucose 94 70 - 199 mg/dL [facility] Comment: Interpretive Data Fasting glucose >/= 126 [...] 2022. Calcium 9.4 8.5 - 10.3 mg/dL NICOLE RAYGOZA Blood 10/05/2024 12:5 5 PM SPRINKLER DRIVER 10/05/2024 1:14 PM SPRINKLER DRIVER Flaca Giles DO LAB BLOOD ORDERABLES Kamla l Result Performing Organization Address [facility] Co de Phone Number NICOLE [address] [address] [place], [place] [id number] * (ABNORMAL) aPTT (10/05/2024 3:14 AM SPRINKLER DRIVER) aPTT 80(H) 28 - 38 sec Comment: Interpretive Data Heparin therapeutic range: 66.0 - 100.0 seconds. Range based on correlation with therapeutic heparin activity range of 0.3 - 0.7 Units/mL. Current interpretive data was last revised on 2023. Blood 10/05/2024 3:14 AM SPRINKLER DRIVER 10/05/2024 3:56 AM SPRINKLER DRIVER Fatou Schwartz MD LAB BLOOD ORDERABLES Final Res ult Performing Organization Address [facility] Co de Phone Number NICOLE [address] [address] [place] [address] * US Carotids Duplex Bilateral (10/04/2024 3:17 PM SPRINKLER DRIVER) Anatomical Region Laterality Modality Vascular Bilateral Ultrasound 10/04/2024 3:25 PM SPRINKLER DRIVER Impressions 10/04/2024 3:25 PM SPRINKLER DRIVER 1. Bilateral internal carotid artery stenosis estimated at less than 50%. 2. There is antegrade flow in both vertebral arteries. Electronically signed by: Jj Grubbs II, D.O. Narrative 10/04/2024 3:25 PM SPRINKLER DRIVER EXAMINATION: BILATERAL CAROTID DUPLEX EXAM DATE: 10/04/2024 [...] both vertebral arteries. Procedure Note Jj Grubbs II, DO - 10/04/2024 EXAMINATION: BILATERAL CAROTID DUPLEX EXAM [...] signed by: Jj Grubbs II, D.O. us Migdalia Neshabrodie Salcedo F[employer] DEVELOPER IMG US PROCEDURES Final Re sult * CT Chest WO Contrast (10/04/2024 11:54 AM SPRINKLER DRIVER) Anatomical Region Laterality Modality Body N/A Computed Tomogra phy 10/04/2024 12:4 6 PM SPRINKLER DRIVER Impressions 10/04/2024 12:46 PM SPRINKLER DRIVER 1. Aortic and coronary artery atherosclerosis. 2. Minimal mosaic attenuation in the lingula and bilateral lower lobe suggestive of atelectasis versus interstitial pulmonary edema. Electronically signed by: Jj Grubbs II, D.O. Narrative 10/04/2024 12:46 PM SPRINKLER DRIVER EXAMINATION: Computed tomography of the chest without [...] signed by: Jj Grubbs II, D.O. us Migdalia Salcedo [employer] DEVELOPER IMG CT PROCEDURES Final Re sult * (ABNORMAL) aPTT (10/04/2024 10:20 AM SPRINKLER DRIVER) aPTT 68(H) 28 - 38 sec Comment: Interpretive Data Heparin therapeutic range: 66.0 - 100.0 seconds. Range based on correlation with therapeutic heparin activity range of 0.3 - 0.7 Units/mL. Current interpretive data was last revised on 2023. Blood 10/04/2024 10:2 0 AM SPRINKLER DRIVER 10/04/2024 10:36 AM SPRINKLER DRIVER us Fatou Schwartz MD LAB BLOOD ORDERABLES Final Res ult [facility] [address] [facility] [place] [address] * X-ray chest 1 view (Portable) (10/04/2024 6:29 AM SPRINKLER DRIVER) Anatomical Region Laterality Modality Body, Chest N/A Computed Radiogr aphy 10/04/2024 8:40 AM SPRINKLER DRIVER Impressions 10/04/2024 8:40 AM SPRINKLER DRIVER No active disease. Electronically signed by: Elena Bower M.D. Narrative 10/04/2024 8:40 AM SPRINKLER DRIVER EXAMINATION: XR CHEST 1 VIEW HISTORY: The [...] disease. Electronically signed by: Elena Bower M.D. Fatou Schwartz MD IMG XR PROCEDURES Final Result * (ABNORMAL) aPTT (10/04/2024 4:25 AM SPRINKLER DRIVER) aPTT 72(H) 28 - 38 sec Comment: Interpretive Data Heparin therapeutic range: 66.0 - 100.0 seconds. Range based on correlation with therapeutic heparin activity range of 0.3 - 0.7 Units/mL. Current interpretive data was last revised on 2023. Blood 10/04/2024 4:25 AM SPRINKLER DRIVER 10/04/2024 4:30 AM SPRINKLER DRIVER Fatou Schwartz MD LAB BLOOD ORDERABLES Final Res ult [facility] [address] [address] Department [place] [address] * eGFR (10/03/2024 9:56 PM SPRINKLER DRIVER) eGFR 64 >=60 mL/min/1. 73 m2 Comment: [...] last reviewed 2021. Blood 10/03/2024 9:56 PM SPRINKLER DRIVER 10/03/2024 10:01 PM SPRINKLER DRIVER Fatou Schwartz MD LAB BLOOD ORDERABLES Final Res ult Performing Organization Address [facility] Co de Phone Number NICOLE RAYGOZA [address] [address] [facility] [place] [address] * aPTT (10/03/2024 9:56 PM SPRINKLER DRIVER) aPTT 34 28 - 38 sec Comment: Interpretive Data Heparin therapeutic range: 66.0 - 100.0 seconds. Range based on correlation with therapeutic heparin activity range of 0.3 - 0.7 Units/mL. Current interpretive data was last revised on 2023. Blood 10/03/2024 9:56 PM SPRINKLER DRIVER 10/03/2024 10:01 PM SPRINKLER DRIVER Fatou Schwartz MD LAB BLOOD ORDERABLES Final Res ult Performing Organization Address [facility] de Phone Number LORINACE RAYGOZA [address] [address] [facility] [place] [address] * Protime-INR (10/03/2024 9:56 PM SPRINKLER DRIVER) PT 11.9 9.7 - 13.0 sec INR 1.10 0.90 - 1.20 NICOLE RAYGOZA Comment: Interpretive data Oral anticoagulant therapeutic ranges: Venous thromboembolism prophylaxis or treatment: 2.0-3.0 CARDIOLOGY Standard range: 2.0-3.0 High-intensity range: 2.5-3.5 Refer to indication-specific guidelines for appropriate target ranges for prosthetic heart valve replacement. Current interpretive data was last revised on 2019. Blood 10/03/2024 9:56 PM SPRINKLER DRIVER 10/03/2024 10:01 PM SPRINKLER DRIVER Fatou Schwartz MD LAB BLOOD ORDERABLES Final Res ult Performing Organization Address [facility] Co de Phone Number NICOLE RAYGOZA [address] [address] [facility] [place] [address] * CBC without differential (10/03/2024 9:56 PM SPRINKLER DRIVER) Pathologist [facility] WBC 6.2 3.8 - 9.9 K/cumm Hgb 14.4 13.0 - 17.5 g/dL [facility] Hct 42.4 38.9 - 50.3 % [facility] Plt 182 150 - 400 K/cumm [facility] MPV 10.1 9.1 - 12.3 fL [facility] RBC 4.75 4.30 - 5.80 M/cumm [facility] MCV 89.3 81.3 - 96.4 fL [facility] MCH 30.3 27.1 - 33.3 pg [facility] MCHC 34.0 32.3 - 35.7 g/dL [facility] RDW CV 13.0 11.1 - 14.9 % [facility] RDW SD 42.5 35.7 - 48.1 fL [facility] NRBC abs 0.00 0.00 - 0.01 K/cumm [facility] Blood 10/03/2024 9:56 PM SPRINKLER DRIVER 10/03/2024 10:01 PM SPRINKLER DRIVER Fatou Schwartz MD LAB BLOOD ORDERABLES Final Res ult Performing Organization Address [facility] Co de Phone Number LORINACE [address] [address] [place], [place] [phone] * Magnesium (10/03/2024 9:56 PM SPRINKLER DRIVER) [facility] Magnesium 1.9 1.4 - 2.5 mg/dL Blood 10/03/2024 9:56 PM SPRINKLER DRIVER 10/03/2024 10:01 PM SPRINKLER DRIVER Fatou Schwartz MD LAB BLOOD ORDERABLES Final Res ult Performing Organization Address City/[facility]/ZIP Co de Phone Number [facility] [address] [address] [facility] [place] [address] * (ABNORMAL) Hemoglobin A1c (10/03/2024 9:56 PM SPRINKLER DRIVER) [facility] Hgb A1C 5.8(H) 4.0 - 5.6 % Estimated Average Glucose 120 mg/dL [facility] Comment: The ADA recommends reporting an estimated Average Glucose (eAG) with all Hemoglobin A1c results using the equation derived from a study of 507 normal and diabetic adults. Minority populations were underrepresented and children were not included. (Diabetes Care 31:8848-4272, 2008). The eAG is not equivalent to a fasting glucose. Blood 10/03/2024 9:56 PM SPRINKLER DRIVER 10/04/2024 10:36 AM SPRINKLER DRIVER Migdalia Salcedo [employer] DEVELOPER LAB BLOOD ORDERABLES Final Result [facility] [address] [address] Liu Department [place] [address] * Comprehensive metabolic panel (10/03/2024 9:56 PM SPRINKLER DRIVER) Sodium 138 135 - 145 mmol/L Potassium, pl 4.0 3.3 - 4.9 mmol/L [facility] Chloride 102 97 - 110 mmol/L [facility] CO2 26 22 - 32 mmol/L [facility] Anion gap 10 2 - 15 mmol/L [facility] BUN 15 6 - 25 mg/dL [facility] Creatinine 1.15 0.80 - 1.30 mg/dL [facility] Glucose 95 70 - 199 mg/dL [facility] Comment: Interpretive Data Fasting glucose >/= 126 [...] Calcium 9.3 8.5 - 10.3 mg/dL [facility] Bilirubin, total 0.6 0.1 - 1.2 mg/dL [facility] Protein, pl 6.7 6.5 - 8.5 g/dL [facility] Albumin 4.1 3.5 - 5.0 g/dL [facility] Alk phos 82 40 - 130 Units/L [facility] ALT 16 7 - 55 Units/L [facility] AST 21 10 - 50 Units/L [facility] Blood 10/03/2024 9:56 PM SPRINKLER DRIVER 10/03/2024 10:01 PM SPRINKLER DRIVER Fatou Schwartz MD LAB BLOOD ORDERABLES Final Res ult Performing Organization Address [facility] [place] [address] [address] [place] [address] * (ABNORMAL) Urinalysis reflex to microscopic and culture Urine, clean voided (10/03/2024 9:22 PM SPRINKLER DRIVER) Color, ur Yellow Yellow Clarity, ur Clear [...] tendency for uric acid stone formation. Source: [facility] [employer] Current Interpretive Data was last revised on [...] be performed. [facility] Urine, clean voided 10/03/2024 9:22 PM SPRINKLER DRIVER 10/03/2024 9:30 PM SPRINKLER DRIVER Fatou Schwartz MD LAB MICROBIOLOGY - GENERAL ORD ERABLES Final Result Performing Organization Address City/[facility]/ZIP Co de Phone Number C[facility] [address] [address] [place] [address] * (ABNORMAL) Urinalysis, microscopic only (10/03/2024 9:22 PM SPRINKLER DRIVER) WBC, ur 11-20(A) 0 - 5 /HPF RBC, ur 0-2 0 - 2 /HPF [facility] Bacteria, ur Trace(A) [facility] Culture Reflex Comment Reflex to urine culture will be performed. [facility] Urine, clean voided 10/03/2024 9:22 PM SPRINKLER DRIVER 10/03/2024 9:30 PM SPRINKLER DRIVER us Fatou Schwartz MD LAB URINE ORDERABLES Final Res ult [facility] [address] [address] Liu Department [place] [address] * (ABNORMAL) Urine culture Urine, clean voided (10/03/2024 9:22 PM SPRINKLER DRIVER) Report Final Report: Greater than or equal to 100,000 colonies/mL of Enterobacter aerogenes (.) Comment:Testing performed by : [facility], [address] [place] [address] Organism ENTEROBACTER AEROGENES [facility] Urine, clean voided 10/03/2024 9:22 PM SPRINKLER DRIVER 10/04/2024 12:20 AM SPRINKLER DRIVER Narrative [facility] - 10/06/2024 6:22 AM SPRINKLER DRIVER Urine culture reflexed based upon urinalysis results. Testing performed by [facility] Microbiology [facility] ([phone]) Organism Antibiotic Method Susceptibility Klebsiella (Enterobacter) aerogenes [...] Resistant Klebsiella (Enterobacter) aerogenes Piperacillin/Tazobactam INTERPRETATION Resistant us Fatou Schwartz MD LAB MICROBIOLOGY - GENERAL ORD ERABLES Final Result NICOLE RAY[id number] Department [place] [address] * Cardiology Document Scan (10/03/2024 4:14 PM SPRINKLER DRIVER) Anatomical Region Laterality Modality Other us Sherley Herring NP [facility] PROCED[facility] ES Final Result * Cardiology Document Scan (10/02/2024 4:12 PM SPRINKLER DRIVER) Anatomical Region Laterality Modality Other Sherley Herring NP [facility] PROCEDUR ES Final Result from Last 3 Months Insurance MEDICARE ADVANTAGE [facility] MEDICARE ADVANTAGE Advance Directives For more information, please contact: [phone] * Full Code (Latest Code Status on File) Date Activated Date Inactivated Comments 10/03/2024 8:28 PM 10/21/2024 4:34 PM Care Teams Vacuum Cleaner Repairer Relationship Specialty Start Date End Date Jj Collins NP [address] [employer] [address] [place] [id number] PCP - General Nurse Practitioner 10/02/24
[2024-11-29 11:13] VITALS: BP 134/79; PULSE 73; RESP 23; O2SAT 99
--- OUTSIDE RECORDS SUMMARY | 2024-11-29 12:11 | XMS_ITS | Referral Summary ---
Author Organization [facility] Address [address] [place] [address] Care Team Providers Care Underwear Trimmer Name Role Phone Jj Collins NP Primary Care Provider [phone] Encounters Date Type Department Care Team Description 5 3:00 PM CDT Home Care Visit [address] [address] [address] [place] [address] Tamara Key RN SN OASIS DISCHARGE 5 11:30 AM CDT Office Visit [facility] Surgery [id number] [place] [address] [address] [place] [address] Reina Duffy NP S/P AVR (aortic valve replacement) (Primary Dx); Coronary artery disease involving oneida coronary artery of oneida heart without angina pectoris; Nonrheumatic aortic valve stenosis 5 Telephone [facility] Cardiology [address] [place] [address] [address] [place] [phone] Lakeshia Aviles NP 5 8:30 AM CDT Ancillary Procedure [facility] Cardiology [address] [place] [address] 162 [address] [place] [address] Cardiac pacemaker in situ; Atrial fibrillation, unspecified type (HCC); Bradycardia; Tachy-thomas syndrome (HCC) 5 Telephone [facility] Cardiology [address] [facility] [address] [place] [phone] Remberto Cerda MD 5 1:00 PM CDT Home Care Visit [address] [place] [address] Tamara Key RN SN HOME VISIT 5 11:00 AM CDT Home Care Visit [address] [place] [address] Tamara Key RN SN HOME VISIT 5 1:00 PM CDT Home Care Visit [address] [place] [address] Tamara Key RN SN HOME VISIT 5 12:00 PM CDT Home Care Visit [address] [place] [address] Tamara Sandoval LPN SN HOME VISIT 5 12:00 PM CDT Home Care Visit [address] [place] [address] Tamara Key RN SN HOME VISIT [address] [facility] Cardiology [address] [facility] [address], [place] [phone] Remberto Cerda MD Cardiac pacemaker in situ (Primary Dx); Atrial fibrillation, unspecified type (HCC); Bradycardia; Tachy-thomas syndrome (HCC) 5 Orders Only [facility] [address] [facility] [address] [place] [address] Monet Vo MA Sinus bradycardia (Primary Dx); Cardiac pacemaker in situ 5 Home Care Visit [address] [place] [address] Tamara Key RN CARE CONFERENCE 5 Telephone Cardiology Flaca Giles DO 5 Orders Only [facility] Surgery [address] [facility] [address] [place] [address] Reina Duffy NP 5 10:34 AM CDT - 5 11:59 PM CDT Hospital Encounter [facility] [address] [place] [address] Discharge Disposition: Discharge to home or self care 5 10:00 AM CDT Home Care Visit [address] [address] [address] [place] [address] Tamara Key RN SN HOME VISIT 5 Plan of Care Documentation [address] [place] [address] 5 1:30 PM CDT Home Care Visit [address] [address] [address] [place] [address] Imani Mcgowan SN OASIS START OF CARE 5 7:35 PM FOOD PROCESSING SCIENTIST - 5 12:34 PM CDT Hospital Encounter [address] [address] Fatou Schwartz MD Munfakh, Nabil A., MD Aortic valve stenosis, etiology of cardiac valve disease unspecified (Primary Dx); Coronary artery disease involving oneida coronary artery of oneida heart without angina pectoris; Nonrheumatic aortic valve stenosis; Dark stools Discharge Disposition: Discharge to home, home health skilled care [address] [facility] [address] [place] [address] Ravin Branham MA 5 2:31 PM FOOD PROCESSING SCIENTIST Anesthesia Event [facility] Electrophysiology Lab [address] [place] [address] Royal Sun MD Eldin, Ali S., MD 5 1:30 PM FOOD PROCESSING SCIENTIST - 5 3:35 PM FOOD PROCESSING SCIENTIST Surgery [facility] Electrophysiology Lab [address] [place] [address] Teresa Knox MD INSERT/REPLACE DUAL LEAD PACEMAKER (PPM) OR IMPLANTABLE CARDIOVERTER-DEFIBRI LLATOR (ICD) ELECTRODE WO GENERATOR CHANGE [id number] [facility] Cardiology [address] [place] [phone] Sherley Herring, MARY 5 8:00 AM FOOD PROCESSING SCIENTIST - 5 1:30 PM FOOD PROCESSING SCIENTIST Surgery [facility] Operating Room [id number] [place] [address] Guillermo Mayes MD CORONARY ARTERY BYPASS GRAFT X 3 - INTERNAL MAMMARY/SAPHENOUS VEIN GRAFT - LEG 5 8:04 AM FOOD PROCESSING SCIENTIST Anesthesia Event [facility] Operating Room [id number] [place] [address] Williams Carrillo MD Sextro, Alexander Jain, AA 5 1:55 PM FOOD PROCESSING SCIENTIST Anesthesia Event [facility] GI Lab [id number] [place] [address] Royal Sun MD O'Brien, Tony Martin, AA 5 2:00 PM FOOD PROCESSING SCIENTIST - 5 2:30 PM FOOD PROCESSING SCIENTIST Surgery [facility] GI Lab [id number] [place] [address] Flaca Giles DO TRANSESOPHAGEAL ECHOCARDIOGRAM from Last 3 Months Allergies No known active allergies Medications aspirin 81 mg enteric coated tabletIndication s:Myocardial Reinfarction Prevention Take 1 tablet by mouth daily Active levothyroxine (SYNTHROID) 112 mcg tabletIndication s:hypothyroidism 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 Dx; Tachy/Thomas, Afib, Pauses. DOI 10/13/2024- Abilio. Carelink remote. Dark stools 10/16/2024 Coronary artery disease invo lving oneida coronary artery of oneida heart without angina pectoris 10/06/2024 CAD in oneida artery 10/03/2024 Aortic valve stenosis 10/03/2024 Social [...] materials from doctor or pharmacy Never 11/17/[address] [facility] Utilities Answer Date Recorded In the past [...] often do you attend chur ch or jainism services? Never 10/05/2024 Do you belong to any clubs o r organizations such as scientology groups, unions, fraternal or athletic groups, or [...] any time in the past 12 [facility], were you homeless or living in a halfway (including now)? No 10/05/2024 Personal Safety Answer Date Recorded Have you ever been in or are you currently in a harmful physical or emotional relationship or is someone making you feel afraid or unsafe? Denies 10/03/2024 Sex and Gender Information Value Date Recorded Sex Assigned at Not on file Legal Sex Male 1:53 PM FOOD PROCESSING SCIENTIST Gender Identity Not on file Sexual Orientation [...] on file Medical Devices Implanted Type Area Glass Embosser Device Identifier Shelf Expiration Date Model / Serial / Lot Medtronic Inc Eulalia S Mri Surescan 50.8x46.6mm 2 Chamber 7.4mm Pacemaker 22.5gm [id number] - [id number] - [id number] Implanted:Qty: 1 on 10/13/2024 by Teresa Knox MD at [facility] Pacemaker Left: Chest Wall Medtronic Inc 07/06/2025 [id number] / [id number] / [employer] Valve Coronary Aortic Tissue Bioprosthesis Intuity Elite 25mm [id number] - [id number] - [id number] Implanted:Qty: 1 on 10/09/2024 by Guillermo Mayes MD at [facility] Prosthetic Valve N/A: Heart [employer] 03/02/2025 [id number] / [id number] / Medtronic Inc Capsurefix Novus 6.2fr 2mm 58cm Bipolar Screw In Implantable 5076-58 - [id number] - [id number] Implanted:Qty: 1 on 10/13/2024 by Teresa Knox MD at [facility] Left: Chest Medtronic Inc 07/10/2026 5076-58 / [id number] / Medtronic Inc Capsurefix Novus 6.2fr 2mm 45cm Bipolar Screw In Implantable 5076-45 - [id number] - [id number] Implanted:Qty: 1 on 10/13/2024 by Teresa Knox MD at [facility] Left: Chest Medtronic Inc [id number] 03/24/2026 5076-45 / [id number] 1V / Medtronic Inc Tyrx Absorbable Antibacterial Envelope Med 2.7x2.5in [id number] - [id number] Implanted:Qty: 1 on 10/13/2024 by Teresa Knox MD at [facility] Left: Chest Medtronic Inc 06/29/2025 [id number] / [id number] Procedures Procedure Name Priority Date/Time Associated Diagnosis [...] CDT ECG 12-LEAD Routine 10/15/2024 1:15 AM FOOD PROCESSING SCIENTIST POCT GLUCOSE DEVICE Routine 10/14/2024 8 :35 PM FOOD PROCESSING SCIENTIST TRANSTHORACIC ECHO (TTE) COMPLETE W DOPPLER/CF WO CONTRAST Routine 10/14/2024 9:52 AM FOOD PROCESSING SCIENTIST POCT GLUCOSE DEVICE Routine 10/14/2024 7 :57 AM FOOD PROCESSING SCIENTIST XR CHEST 1 VIEW IP Routine 10/14/2024 6:00 AM FOOD PROCESSING SCIENTIST EGFR Routine 10/14/2024 5:20 AM FOOD PROCESSING SCIENTIST MAGNESIUM Routine 10/14/2024 5:20 AM FOOD PROCESSING SCIENTIST CBC WITHOUT DIFFERENTIAL Routine 10/14/2024 5:20 AM FOOD PROCESSING SCIENTIST BASIC METABOLIC PANEL Routine 10/14/2024 5:20 AM FOOD PROCESSING SCIENTIST POCT GLUCOSE DEVICE Routine 10/13/2024 8 :21 PM FOOD PROCESSING SCIENTIST POCT GLUCOSE DEVICE Routine 10/13/2024 5 :27 PM FOOD PROCESSING SCIENTIST XR CHEST 1 VIEW IP Routine 10/13/2024 4:35 PM FOOD PROCESSING SCIENTIST ICD LEAD DUAL 2 LEADS PPM OR ICD Routine 10/13/2024 3:51 PM FOOD PROCESSING SCIENTIST Aortic valve stenosis, etiology of cardiac valve disease unspecified Coronary artery disease involving oneida coronary artery of oneida heart without angina pectoris POCT GLUCOSE DEVICE Routine 10/13/2024 12:45 PM FOOD PROCESSING SCIENTIST ECG 12-LEAD STAT 10/13/2024 11:59 AM FOOD PROCESSING SCIENTIST ECG 12-LEAD STAT 10/13/2024 9:36 AM FOOD PROCESSING SCIENTIST POCT GLUCOSE DEVICE Routine 10/13/2024 7 :56 AM FOOD PROCESSING SCIENTIST XR CHEST 1 VIEW IP Routine 10/13/2024 6:24 AM FOOD PROCESSING SCIENTIST EGFR Routine 10/13/2024 5:50 AM FOOD PROCESSING SCIENTIST PROTIME-INR Routine 10/13/2024 5:50 AM FOOD PROCESSING SCIENTIST APTT Routine 10/13/2024 5:50 AM FOOD PROCESSING SCIENTIST MAGNESIUM Routine 10/13/2024 5:50 AM FOOD PROCESSING SCIENTIST CBC WITHOUT DIFFERENTIAL Routine 10/13/2024 5:50 AM FOOD PROCESSING SCIENTIST BASIC METABOLIC PANEL Routine 10/13/2024 5:50 AM FOOD PROCESSING SCIENTIST ECG 12-LEAD Routine 10/12/2024 10:08 PM FOOD PROCESSING SCIENTIST POCT GLUCOSE DEVICE Routine 10/12/2024 9 :59 PM FOOD PROCESSING SCIENTIST POCT GLUCOSE DEVICE Routine 10/12/2024 9 :27 PM FOOD PROCESSING SCIENTIST POCT GLUCOSE DEVICE Routine 10/12/2024 5 :44 PM FOOD PROCESSING SCIENTIST POCT GLUCOSE DEVICE Routine 10/12/2024 1 :00 PM FOOD PROCESSING SCIENTIST ECG 12-LEAD Routine 10/12/2024 10:04 AM FOOD PROCESSING SCIENTIST POCT GLUCOSE DEVICE Routine 10/12/2024 7 :53 AM FOOD PROCESSING SCIENTIST XR CHEST 1 VIEW IP Routine 10/12/2024 6:11 AM FOOD PROCESSING SCIENTIST EGFR Routine 10/12/2024 4:30 AM FOOD PROCESSING SCIENTIST MAGNESIUM Routine 10/12/2024 4:30 AM FOOD PROCESSING SCIENTIST CBC WITHOUT DIFFERENTIAL Routine 10/12/2024 4:30 AM FOOD PROCESSING SCIENTIST BASIC METABOLIC PANEL Routine 10/12/2024 4:30 AM FOOD PROCESSING SCIENTIST POCT GLUCOSE DEVICE Routine 10/11/2024 8 :46 PM FOOD PROCESSING SCIENTIST POCT GLUCOSE DEVICE Routine 10/11/2024 5 :13 PM FOOD PROCESSING SCIENTIST POCT GLUCOSE DEVICE Routine 10/11/2024 12:12 PM FOOD PROCESSING SCIENTIST POCT GLUCOSE DEVICE Routine 10/11/2024 8 :24 AM FOOD PROCESSING SCIENTIST CRITICAL CARE Routine 10/11/2024 6:32 AM FOOD PROCESSING SCIENTIST Coronary artery disease involving oneida coronary artery of oneida heart without angina pectoris XR CHEST 1 VIEW IP Routine 10/11/2024 5:59 AM FOOD PROCESSING SCIENTIST OXYHEMOGLOBIN, PULMONARY ARTERY Routine 10/11/2024 5:30 AM FOOD PROCESSING SCIENTIST EGFR Routine 10/11/2024 5:22 AM FOOD PROCESSING SCIENTIST CALCIUM,IONIZED, WHOLE BLOOD Routine 10/11/2024 5:22 AM FOOD PROCESSING SCIENTIST MAGNESIUM Routine 10/11/2024 5:22 AM FOOD PROCESSING SCIENTIST CBC WITHOUT DIFFERENTIAL Routine 10/11/2024 5:22 AM FOOD PROCESSING SCIENTIST BASIC METABOLIC PANEL Routine 10/11/2024 5:22 AM FOOD PROCESSING SCIENTIST PHOSPHORUS Routine 10/11/2024 5:22 AM FOOD PROCESSING SCIENTIST POCT GLUCOSE DEVICE Routine 10/11/2024 5 :20 AM FOOD PROCESSING SCIENTIST POCT GLUCOSE DEVICE Routine 10/11/2024 4 :26 AM FOOD PROCESSING SCIENTIST POCT GLUCOSE DEVICE Routine 10/11/2024 3 :23 AM FOOD PROCESSING SCIENTIST POCT GLUCOSE DEVICE Routine 10/11/2024 2 :26 AM FOOD PROCESSING SCIENTIST POCT GLUCOSE DEVICE Routine 10/11/2024 1 :28 AM FOOD PROCESSING SCIENTIST POCT GLUCOSE DEVICE Routine 10/11/2024 12:27 AM FOOD PROCESSING SCIENTIST POCT GLUCOSE DEVICE Routine 10/10/2024 11:26 PM FOOD PROCESSING SCIENTIST POCT GLUCOSE DEVICE Routine 10/10/2024 10:27 PM FOOD PROCESSING SCIENTIST POCT GLUCOSE DEVICE Routine 10/10/2024 9 :26 PM FOOD PROCESSING SCIENTIST CRITICAL CARE Routine 10/10/2024 7:59 PM FOOD PROCESSING SCIENTIST Aortic valve stenosis, etiology of cardiac valve disease unspecified POCT GLUCOSE DEVICE Routine 10/10/2024 7 :12 PM FOOD PROCESSING SCIENTIST POCT GLUCOSE DEVICE Routine 10/10/2024 6 :06 PM FOOD PROCESSING SCIENTIST POCT GLUCOSE DEVICE Routine 10/10/2024 5 :02 PM FOOD PROCESSING SCIENTIST POCT GLUCOSE DEVICE Routine 10/10/2024 4 :06 PM FOOD PROCESSING SCIENTIST POCT GLUCOSE DEVICE Routine 10/10/2024 3 :02 PM FOOD PROCESSING SCIENTIST POCT GLUCOSE DEVICE Routine 10/10/2024 1 :58 PM FOOD PROCESSING SCIENTIST EGFR Routine 10/10/2024 1:54 PM FOOD PROCESSING SCIENTIST DIFFERENTIAL AUTO Routine 10/10/2024 1:5 4 PM FOOD PROCESSING SCIENTIST CALCIUM,IONIZED, WHOLE BLOOD Routine 10/10/2024 1:54 PM FOOD PROCESSING SCIENTIST MAGNESIUM Routine 10/10/2024 1:54 PM FOOD PROCESSING SCIENTIST BASIC METABOLIC PANEL Routine 10/10/2024 1:54 PM FOOD PROCESSING SCIENTIST CBC WITH AUTO DIFFERENTIAL Routine 10/10/2024 1:54 PM FOOD PROCESSING SCIENTIST POCT GLUCOSE DEVICE Routine 10/10/2024 12:58 PM FOOD PROCESSING SCIENTIST URINALYSIS AND REFLEX TO MICROSCOPIC STAT 10/10/2024 12:27 PM FOOD PROCESSING SCIENTIST POCT GLUCOSE DEVICE Routine 10/10/2024 11:53 AM FOOD PROCESSING SCIENTIST POCT GLUCOSE DEVICE Routine 10/10/2024 10:48 AM FOOD PROCESSING SCIENTIST POCT GLUCOSE DEVICE Routine 10/10/2024 9 :48 AM FOOD PROCESSING SCIENTIST POCT GLUCOSE DEVICE Routine 10/10/2024 8 :16 AM FOOD PROCESSING SCIENTIST ECG 12-LEAD STAT 10/10/2024 7:57 AM FOOD PROCESSING SCIENTIST EXTUBATION Routine 10/10/2024 7:12 AM FOOD PROCESSING SCIENTIST BLOOD GAS, ARTERIAL STAT 10/10/2024 6 :52 AM FOOD PROCESSING SCIENTIST CRITICAL CARE Routine 10/10/2024 6:41 AM FOOD PROCESSING SCIENTIST Aortic valve stenosis, etiology of cardiac valve disease unspecified Coronary artery disease involving oneida coronary artery of oneida heart without angina pectoris Nonrheumatic aortic valve stenosis POCT GLUCOSE DEVICE Routine 10/10/2024 6 :10 AM FOOD PROCESSING SCIENTIST XR CHEST 1 VIEW IP Routine 10/10/2024 5:55 AM FOOD PROCESSING SCIENTIST POCT GLUCOSE DEVICE Routine 10/10/2024 5 :15 AM FOOD PROCESSING SCIENTIST OXYHEMOGLOBIN, PULMONARY ARTERY Routine 10/10/2024 2:34 AM FOOD PROCESSING SCIENTIST EGFR Routine 10/10/2024 2:27 AM FOOD PROCESSING SCIENTIST DIFFERENTIAL AUTO Routine 10/10/2024 2:2 7 AM FOOD PROCESSING SCIENTIST HEPATIC FUNCTION PANEL Routine 2:27 AM FOOD PROCESSING SCIENTIST VITAMIN D 25 HYDROXY Routine 10/10/2024 2:27 AM FOOD PROCESSING SCIENTIST LIPID PANEL Routine 10/10/2024 2:27 AM FOOD PROCESSING SCIENTIST THYROID FUNCTION CASCADE Routine 10/10/2024 2:27 AM FOOD PROCESSING SCIENTIST PHOSPHORUS Routine 10/10/2024 2:27 AM FOOD PROCESSING SCIENTIST MAGNESIUM Routine 10/10/2024 2:27 AM FOOD PROCESSING SCIENTIST BASIC METABOLIC PANEL Routine 10/10/2024 2:27 AM FOOD PROCESSING SCIENTIST CBC WITH AUTO DIFFERENTIAL Routine 10/10/2024 2:27 AM FOOD PROCESSING SCIENTIST CALCIUM,IONIZED, WHOLE BLOOD Routine 10/10/2024 2:21 AM FOOD PROCESSING SCIENTIST BLOOD GAS, ARTERIAL Routine 10/10/2024 2 :21 AM FOOD PROCESSING SCIENTIST POCT GLUCOSE DEVICE Routine 10/09/2024 11:11 PM FOOD PROCESSING SCIENTIST BLOOD GAS, ARTERIAL Timed 10/09/2024 9 :50 PM FOOD PROCESSING SCIENTIST CRITICAL CARE Routine 10/09/2024 8:31 PM FOOD PROCESSING SCIENTIST Aortic valve stenosis, etiology of cardiac valve disease unspecified EGFR STAT 10/09/2024 8:23 PM FOOD PROCESSING SCIENTIST DIFFERENTIAL AUTO STAT 10/09/2024 8:2 3 PM FOOD PROCESSING SCIENTIST BLOOD GAS, ARTERIAL STAT 10/09/2024 8 :23 PM FOOD PROCESSING SCIENTIST BASIC METABOLIC PANEL STAT 10/09/2024 8:23 PM FOOD PROCESSING SCIENTIST FIBRINOGEN STAT 10/09/2024 8:23 PM FOOD PROCESSING SCIENTIST PROTIME-INR STAT 10/09/2024 8:23 PM FOOD PROCESSING SCIENTIST MAGNESIUM Routine 10/09/2024 8:23 PM FOOD PROCESSING SCIENTIST CALCIUM,IONIZED, WHOLE BLOOD STAT 10/09/2024 8:23 PM FOOD PROCESSING SCIENTIST CBC WITH AUTO DIFFERENTIAL STAT 10/09/2024 8:23 PM FOOD PROCESSING SCIENTIST XR CHEST 1 VIEW Timed 10/09/2024 8:19 PM FOOD PROCESSING SCIENTIST POCT GLUCOSE DEVICE Routine 10/09/2024 7 :06 PM FOOD PROCESSING SCIENTIST TRANSFUSE PLATELETS Timed 10/09/2024 6 :51 PM FOOD PROCESSING SCIENTIST TRANSFUSE CRYOPRECIPITATE (POOLED UNITS) Timed 10/09/2024 6:44 PM FOOD PROCESSING SCIENTIST TRANSFUSE CRYOPRECIPITATE (POOLED UNITS) Timed 10/09/2024 5:57 PM FOOD PROCESSING SCIENTIST CRITICAL CARE Routine 10/09/2024 5:28 PM FOOD PROCESSING SCIENTIST Aortic valve stenosis, etiology of cardiac valve disease unspecified Coronary artery disease involving oneida coronary artery of oneida heart without angina pectoris TRANSFUSE PLATELETS Timed 10/09/2024 5 :24 PM FOOD PROCESSING SCIENTIST POCT GLUCOSE DEVICE Routine 10/09/2024 5 :23 PM FOOD PROCESSING SCIENTIST PREPARE CRYOPRECIPITATE (POOLED UNITS) STAT 10/09/2024 5:10 PM FOOD PROCESSING SCIENTIST XR CHEST 1 VIEW Critical/Life-T hreatening 10/09/2024 5:05 PM FOOD PROCESSING SCIENTIST EGFR STAT 10/09/2024 4:25 PM FOOD PROCESSING SCIENTIST FIBRINOGEN Add-On 10/09/2024 4:25 PM FOOD PROCESSING SCIENTIST PHOSPHORUS Add-On 10/09/2024 4:25 PM FOOD PROCESSING SCIENTIST MAGNESIUM STAT 10/09/2024 4:25 PM FOOD PROCESSING SCIENTIST CALCIUM,IONIZED, WHOLE BLOOD STAT 10/09/2024 4:25 PM FOOD PROCESSING SCIENTIST APTT STAT 10/09/2024 4:25 PM FOOD PROCESSING SCIENTIST PROTIME-INR STAT 10/09/2024 4:25 PM FOOD PROCESSING SCIENTIST CBC WITHOUT DIFFERENTIAL Timed 10/09/2024 4:25 PM FOOD PROCESSING SCIENTIST BLOOD GAS, ARTERIAL Timed 10/09/2024 4 :25 PM FOOD PROCESSING SCIENTIST BASIC METABOLIC PANEL STAT 10/09/2024 4:25 PM FOOD PROCESSING SCIENTIST POCT GLUCOSE DEVICE Routine 10/09/2024 4 :07 PM FOOD PROCESSING SCIENTIST PREPARE PLATELETS STAT 10/09/2024 3:3 7 PM FOOD PROCESSING SCIENTIST POCT ACTIVATED CLOTTING TIME, HIGH RANGE Routine 10/09/2024 3:23 PM FOOD PROCESSING SCIENTIST POC BLOOD GAS AND CHEMISTRIES, ARTERIAL Routine 10/09/2024 3:18 PM FOOD PROCESSING SCIENTIST APTT STAT 10/09/2024 3:00 PM FOOD PROCESSING SCIENTIST PLATELET COUNT Routine 10/09/2024 3:00 PM FOOD PROCESSING SCIENTIST PROTIME-INR STAT 10/09/2024 3:00 PM FOOD PROCESSING SCIENTIST FIBRINOGEN STAT 10/09/2024 3:00 PM FOOD PROCESSING SCIENTIST TRANSFUSE PLATELETS Timed 10/09/2024 2 :38 PM FOOD PROCESSING SCIENTIST POC BLOOD GAS AND CHEMISTRIES, ARTERIAL Routine 10/09/2024 2:09 PM FOOD PROCESSING SCIENTIST TRANSFUSE PLASMA Timed 10/09/2024 2:03 PM FOOD PROCESSING SCIENTIST POCT ACTIVATED CLOTTING TIME, HIGH RANGE Routine 10/09/2024 2:03 PM FOOD PROCESSING SCIENTIST TRANSFUSE PLATELETS Timed 10/09/2024 2 :00 PM FOOD PROCESSING SCIENTIST POC BLOOD GAS AND CHEMISTRIES, ARTERIAL Routine 10/09/2024 1:34 PM FOOD PROCESSING SCIENTIST POCT ACTIVATED CLOTTING TIME, HIGH RANGE Routine 10/09/2024 1:31 PM FOOD PROCESSING SCIENTIST POC BLOOD GAS AND CHEMISTRIES, ARTERIAL Routine 10/09/2024 1:08 PM FOOD PROCESSING SCIENTIST POCT ACTIVATED CLOTTING TIME, HIGH RANGE Routine 10/09/2024 1:06 PM FOOD PROCESSING SCIENTIST PLATELET COUNT STAT 10/09/2024 1:05 PM FOOD PROCESSING SCIENTIST POC BLOOD GAS AND CHEMISTRIES, ARTERIAL Routine 10/09/2024 12:31 PM FOOD PROCESSING SCIENTIST POCT ACTIVATED CLOTTING TIME, HIGH RANGE Routine 10/09/2024 12:29 PM FOOD PROCESSING SCIENTIST POC BLOOD GAS AND CHEMISTRIES, ARTERIAL Routine 10/09/2024 11:59 AM FOOD PROCESSING SCIENTIST POCT ACTIVATED CLOTTING TIME, HIGH RANGE Routine 10/09/2024 11:57 AM FOOD PROCESSING SCIENTIST POC BLOOD GAS AND CHEMISTRIES, ARTERIAL Routine 10/09/2024 11:29 AM FOOD PROCESSING SCIENTIST POCT ACTIVATED CLOTTING TIME, HIGH RANGE Routine 10/09/2024 11:27 AM FOOD PROCESSING SCIENTIST POC BLOOD GAS AND CHEMISTRIES, ARTERIAL Routine 10/09/2024 10:55 AM FOOD PROCESSING SCIENTIST POCT ACTIVATED CLOTTING TIME, HIGH RANGE Routine 10/09/2024 10:53 AM FOOD PROCESSING SCIENTIST SURGICAL PATHOLOGY Routine 10/09/2024 10:29 AM FOOD PROCESSING SCIENTIST Coronary artery disease involving oneida coronary artery of oneida heart without angina pectoris Nonrheumatic aortic valve stenosis POC BLOOD GAS AND CHEMISTRIES, ARTERIAL Routine 10/09/2024 10:00 AM FOOD PROCESSING SCIENTIST POCT ACTIVATED CLOTTING TIME, HIGH RANGE Routine 10/09/2024 9:54 AM FOOD PROCESSING SCIENTIST ANESTHESIA CENTRAL VENOUS LINE PLACEMENT Routine 10/09/2024 9:32 AM FOOD PROCESSING SCIENTIST ANESTHESIA CENTRAL VENOUS LINE PLACEMENT Routine 10/09/2024 9:32 AM FOOD PROCESSING SCIENTIST ANESTHESIA ARTERIAL LINE PLACEMENT Routine 10/09/2024 9:23 AM FOOD PROCESSING SCIENTIST ANESTHESIA GENEVA Routine 10/09/2024 9:18 AM FOOD PROCESSING SCIENTIST CO AN ELECTIVE ENDOTRACHEAL AIRWAY Routine 10/09/2024 9:07 AM FOOD PROCESSING SCIENTIST POC BLOOD GAS AND CHEMISTRIES, ARTERIAL Routine 10/09/2024 8:49 AM FOOD PROCESSING SCIENTIST POCT ACTIVATED CLOTTING TIME, HIGH RANGE Routine 10/09/2024 8:46 AM FOOD PROCESSING SCIENTIST REPLACEMENT AORTIC VALVE 10/09/2024 8:04 AM FOOD PROCESSING SCIENTIST Coronary artery disease involving oneida coronary artery of oneida heart without angina pectoris Nonrheumatic aortic valve stenosis CORONARY ARTERY BYPASS GRAFT - INTERNAL MAMMARY/SAPHENOUS VEIN GRAFT - LEG 10/09/2024 8:04 AM FOOD PROCESSING SCIENTIST Coronary artery disease involving oneida coronary artery of oneida heart without angina pectoris Nonrheumatic aortic valve stenosis APTT Timed 10/09/2024 4:30 AM FOOD PROCESSING SCIENTIST CBC WITHOUT DIFFERENTIAL Timed 10/09/2024 4:30 AM FOOD PROCESSING SCIENTIST APTT Timed 10/08/2024 6:57 PM FOOD PROCESSING SCIENTIST APTT STAT 10/08/2024 12:52 PM FOOD PROCESSING SCIENTIST DIFFERENTIAL AUTO Routine 10/08/2024 11:35 AM FOOD PROCESSING SCIENTIST B CHECK SAMPLE STAT 10/08/2024 11:35 AM FOOD PROCESSING SCIENTIST TYPE AND SCREEN Timed 10/08/2024 11:35 AM FOOD PROCESSING SCIENTIST CBC WITH AUTO DIFFERENTIAL Routine 10/08/2024 11:35 AM FOOD PROCESSING SCIENTIST APTT Timed 10/08/2024 11:35 AM FOOD PROCESSING SCIENTIST PREPARE PLASMA STAT 10/08/2024 10:57 AM FOOD PROCESSING SCIENTIST PREPARE PLATELETS STAT 10/08/2024 10:57 AM FOOD PROCESSING SCIENTIST PREPARE RBC STAT 10/08/2024 10:57 AM FOOD PROCESSING SCIENTIST APTT Routine 10/08/2024 3:57 AM FOOD PROCESSING SCIENTIST APTT Timed 10/07/2024 7:05 AM FOOD PROCESSING SCIENTIST XR CHEST 1 VIEW IP Routine 10/06/2024 9:13 AM FOOD PROCESSING SCIENTIST APTT Routine 10/06/2024 4:53 AM FOOD PROCESSING SCIENTIST CBC WITHOUT DIFFERENTIAL Timed 10/06/2024 12:10 AM FOOD PROCESSING SCIENTIST RESPIRATORY PATHOGEN PANEL Routine 10/05/2024 3:21 PM FOOD PROCESSING SCIENTIST TRANSESOPHAGEAL ECHO (GENEVA) W DOPPLER/CF WO CONTRAST Routine 10/05/2024 2:29 PM FOOD PROCESSING SCIENTIST TRANSESOPHAGEAL ECHOCARDIOGRAM 10/05/2024 1:55 PM FOOD PROCESSING SCIENTIST Aortic valve stenosis, etiology of cardiac valve disease unspecified EGFR Routine 10/05/2024 12:55 PM FOOD PROCESSING SCIENTIST DIFFERENTIAL AUTO Routine 10/05/2024 12:55 PM FOOD PROCESSING SCIENTIST BASIC METABOLIC PANEL Routine 10/05/2024 12:55 PM FOOD PROCESSING SCIENTIST CBC WITH AUTO DIFFERENTIAL Routine 10/05/2024 12:55 PM FOOD PROCESSING SCIENTIST APTT Routine 10/05/2024 3:14 AM FOOD PROCESSING SCIENTIST US CAROTIDS DUPLEX BILATERAL IP Routine 10/04/2024 3:17 [address] CHEST WO CONTRAST IP Routine 10/04/2024 11:54 AM FOOD PROCESSING SCIENTIST APTT Timed 10/04/2024 10:20 AM FOOD PROCESSING SCIENTIST XR CHEST 1 VIEW IP Routine 10/04/2024 6:29 AM FOOD PROCESSING SCIENTIST APTT Timed 10/04/2024 4:25 AM FOOD PROCESSING SCIENTIST HEMOGLOBIN A1C Add-On 10/03/2024 9:56 PM FOOD PROCESSING SCIENTIST EGFR Routine 10/03/2024 9:56 PM FOOD PROCESSING SCIENTIST APTT Routine 10/03/2024 9:56 PM FOOD PROCESSING SCIENTIST PROTIME-INR Routine 10/03/2024 9:56 PM FOOD PROCESSING SCIENTIST CBC WITHOUT DIFFERENTIAL Routine 10/03/2024 9:56 PM FOOD PROCESSING SCIENTIST MAGNESIUM Routine 10/03/2024 9:56 PM FOOD PROCESSING SCIENTIST COMPREHENSIVE METABOLIC PANEL Routine 10/03/2024 9:56 PM FOOD PROCESSING SCIENTIST URINALYSIS, MICROSCOPIC ONLY Routine 10/03/2024 9:22 PM FOOD PROCESSING SCIENTIST URINE CULTURE Routine 10/03/2024 9:22 PM FOOD PROCESSING SCIENTIST URINALYSIS AND REFLEX TO MICROSCOPIC AND CULTURE Routine 10/03/2024 9:22 PM FOOD PROCESSING SCIENTIST CARDIOLOGY DOCUMENT SCAN Routine 10/03/2024 4:14 PM FOOD PROCESSING SCIENTIST CARDIOLOGY DOCUMENT SCAN Routine 10/02/2024 4:12 PM FOOD PROCESSING SCIENTIST from Last 3 Months Results * DEVICE [...] noted. Presenting rhythm- VS (SR). AP- 1.6%, SOIL TECHNICIAN- <0.1%. Five Atrial high rate episodes noted, [...] Res ult Performing Organization Address [facility] Co de Phone Number NICOLE VANESSA Lisa [facility] Department [place] [address] * (ABNORMAL) eGFR (10/25/2024 10:34 AM CDT) [...] ORDERABLES Final Res ult Performing Organization Address City/[facility]/ZIP Co de Phone Number NICOLE VANESSA Lisa [facility] [place] [address] * (ABNORMAL) Differential, auto (10/25/2024 10:34 AM CDT) Neutrophil abs 8.2(H) 1.5 - 6.5 K/cumm Imm gran abs 0.1 0.0 - 0.1 K/cumm [facility] Lymphocyte abs 0.9 0.8 - 3.3 K/cumm [facility] Monocyte abs 0.7 0.2 - 0.8 K/cumm [facility] Eosinophil abs 0.1 0.0 - 0.5 K/cumm [facility] Basophil abs 0.1 0.0 - 0.1 K/cumm [facility] Neutrophil pct 81.6 % [facility] Comment: Interpretive Data Percent cell count reference ranges are not reported, since discordance with absolute values may lead to misinterpretation of CBC data. Current Interpretive Data was last revised on 2017. Imm gran pct 0.6 % [facility] Comment: Interpretive Data Percent cell count reference ranges are not reported, since discordance with absolute values may lead to misinterpretation of CBC data. Current Interpretive Data was last revised on 2017. Lymphocyte pct 9.0 % [facility] Comment: Interpretive Data Percent cell count reference ranges are not reported, since discordance with absolute values may lead to misinterpretation of CBC data. Current Interpretive Data was last revised on 2017. Monocyte pct 6.7 % [facility] Comment: Interpretive Data Percent cell count reference ranges are not reported, since discordance with absolute values may lead to misinterpretation of CBC data. Current Interpretive Data was last revised on 2017. Eosinophil pct 1.4 % [facility] Comment: Interpretive Data Percent cell count reference ranges are not reported, since discordance with absolute values may lead to misinterpretation of CBC data. Current Interpretive Data was last revised on 2017. Basophil pct 0.7 % [facility] Comment: Interpretive Data Percent cell count reference ranges are not reported, since discordance with absolute values may lead to misinterpretation of CBC data. Current Interpretive Data was last revised on 2017. Blood 10/25/2024 10:3 4 AM CDT 10/25/2024 1:31 PM CDT us Notinfile Unknown LAB BLOOD ORDERABLES Final Res ult [facility] Department [place] [address] * (ABNORMAL) Basic metabolic panel without glucose (10/25/2024 10:34 AM CDT) [facility] Sodium 135 135 - 145 mmol/L Potassium, pl 3.5 3.3 - 4.9 mmol/L [facility] Chloride 95(L) 97 - 110 mmol/L [facility] CO2 30 22 - 32 mmol/L [facility] Anion gap 10 2 - 15 mmol/L [facility] BUN 17 6 - 25 mg/dL [facility] Creatinine 1.45(H) 0.80 - 1.30 mg/dL [facility] Calcium 8.2(L) 8.5 - 10.3 mg/dL [facility] Blood 10/25/2024 10:3 4 AM CDT 10/25/2024 1:31 PM CDT us Notinfile Unknown LAB BLOOD ORDERABLES Final Res ult [facility] [place] [address] * (ABNORMAL) CBC with auto differential (10/25/2024 10:34 AM CDT) [facility] WBC 10.0(H) 3.8 - 9.9 K/cumm Hgb 11.7(L) 13.0 - 17.5 g/dL [facility] Hct 36.6(L) 38.9 - 50.3 % [facility] Plt 192 150 - 400 K/cumm [facility] MPV 11.4 9.1 - 12.3 fL [facility] RBC 3.95(L) 4.30 - 5.80 M/cumm [facility] MCV 92.7 81.3 - 96.4 fL [facility] MCH 29.6 27.1 - 33.3 pg [facility] MCHC 32.0(L) 32.3 - 35.7 g/dL [facility] RDW CV 16.0(H) 11.1 - 14.9 % [facility] RDW SD 51.1(H) 35.7 - 48.1 fL [facility] NRBC abs 0.00 0.00 - 0.01 K/cumm [facility] Blood 10/25/2024 10:3 4 AM CDT 10/25/2024 1:31 PM CDT us Notinfile Unknown LAB BLOOD ORDERABLES Final Res ult Performing Organization Address City/[facility]/ZIP Co de Phone Number [facility] Department [place] [address] * eGFR (10/21/2024 8:38 AM CDT) eGFR [...] MD LAB BLOOD ORDERABLES Final R esult [facility] [address] [address] Department [place] [address] * (ABNORMAL) CBC without differential (10/21/2024 8:38 AM CDT) Pathologist [facility] WBC 9.2 3.8 - 9.9 K/cumm Hgb 11.5(L) 13.0 - 17.5 g/dL [facility] Hct 36.8(L) 38.9 - 50.3 % [facility] Plt 126(L) 150 - 400 K/cumm [facility] MPV 11.4 9.1 - 12.3 fL [facility] RBC 3.83(L) 4.30 - 5.80 M/cumm [facility] CH MCV 96.1 81.3 - 96.4 fL [facility] CH MCH 30.0 27.1 - 33.3 pg [facility] MCHC 31.3(L) 32.3 - 35.7 g/dL [facility] CH RDW CV 16.6(H) 11.1 - 14.9 % [facility] CH RDW SD 51.6(H) 35.7 - 48.1 fL [facility] CH NRBC abs 0.00 0.00 - 0.01 K/cumm [facility] Blood 10/21/2024 8:38 AM CDT 10/21/2024 9:15 AM CDT Guillermo Mayes MD LAB BLOOD ORDERABLES Final R esult Performing Organization Address City/[facility] Co de Phone Number NICOLE [address] [address] [employer] [place] [address] * Phosphorus (10/21/2024 8:38 AM CDT) Pathologist [facility] Phosphorus, pl 2.4 2.3 - 4.5 mg/dL Blood 10/21/2024 8:38 AM CDT 10/21/2024 9:15 AM CDT Guillermo Mayes MD LAB BLOOD ORDERABLES Final R esult Performing Organization Address City/State/[facility] Co de Phone Number [facility] [address] [address] Department [place] [employer] [place] [address] * Magnesium (10/21/2024 8:38 AM CDT) Magnesium 2.2 1.4 - 2.5 mg/dL Blood 10/21/2024 8:38 AM CDT 10/21/2024 9:15 AM CDT Guillermo Mayes MD LAB BLOOD ORDERABLES Final R esult NICOLE RAYGOZA [address] [address] [employer] [place] [address] * (ABNORMAL) Basic metabolic panel (10/21/2024 8:38 AM CDT) Sodium 136 135 - 145 mmol/L Potassium, pl 3.9 3.3 - 4.9 mmol/L [facility] Chloride 100 97 - 110 mmol/L [facility] CO2 25 22 - 32 mmol/L [facility] Anion gap 11 2 - 15 mmol/L [facility] BUN 31(H) 6 - 25 mg/dL [facility] Creatinine 1.21 0.80 - 1.30 mg/dL [facility] Comment:Icteric sample, test results may be affected. Glucose 105 70 - 199 mg/dL [facility] Comment: Interpretive Data Fasting glucose >/= [...] 2022. Calcium 8.8 8.5 - 10.3 mg/dL [facility] Blood 10/21/2024 8:38 AM CDT 10/21/2024 9:15 AM CDT Guillermo Mayes MD LAB BLOOD ORDERABLES Final R esult NICOLE RAYGOZA [address] [address] Department [place] [address] * XR Chest 1 View - Portable [...] 10/20/2024 7:00 AM CDT us Yvette Russell ELECTRIC FORK OPERATOR LAB BLOOD ORDERABLES Fin al Result Performing Organization Address City/[facility]/ZIP Co de Phone Number NICOLE [address] [place] [address] * (ABNORMAL) CBC without differential [...] ORDERABLES Final R esult Performing Organization Address City/[facility]/ZIP Co de Phone Number NICOLE RAYGOZA [address] [address] Department [place] [employer] [place] [address] * Phosphorus (10/20/2024 6:44 AM CDT) Phosphorus, pl 2.3 2.3 - 4.5 mg/dL Blood 10/20/2024 6:44 AM CDT 10/20/2024 7:00 AM CDT Guillermo Mayes MD LAB BLOOD ORDERABLES Final R esult Performing Organization Address City/[facility] Co de Phone Number NICOLE RAYGOZA [address] [address] [facility] [employer] [place] [address] * Magnesium (10/20/2024 6:44 AM CDT) Pathologist [facility] Magnesium 2.2 1.4 - 2.5 mg/dL Blood 10/20/2024 6:44 AM CDT 10/20/2024 7:00 AM CDT Guillermo Mayes MD LAB BLOOD ORDERABLES Final R [facility] Performing Organization Address [facility] de Phone Number NICOLE [address] [address] Department [employer] [place] [address] * (ABNORMAL) Basic metabolic panel (10/20/2024 6:44 AM CDT) Sodium 139 135 - 145 mmol/L Potassium, pl 4.1 3.3 - 4.9 mmol/L [facility] Chloride 103 97 - 110 mmol/L [facility] CO2 26 22 - 32 mmol/L [facility] Anion gap 10 2 - 15 mmol/L [facility] BUN 40(H) 6 - 25 mg/dL [facility] Creatinine 1.29 0.80 - 1.30 mg/dL [facility] Comment:Icteric sample, test results may be affected. Glucose 113 70 - 199 mg/dL [facility] Comment: Interpretive Data Fasting glucose >/= [...] BLOOD ORDERABLES Final R esult NICOLE RAYGOZA [address] [address] Department [place] [address] * XR Chest 1 View - Portable [...] R esult Performing Organization Address [facility]/ZIP Co de Phone Number NICOLE RAYGOZA [address] [address] [place] [address] * (ABNORMAL) eGFR (10/19/2024 1:29 [...] BLOOD ORDERABLES Final R esult NICOLE RAYGOZA [address] [address] Department [employer] [place], [place] [id number] * (ABNORMAL) CBC without differential (10/19/2024 1:29 [...] ORDERABLES Final R esult Performing Organization Address City/[facility] Co de Phone Number NICOLE RAYGOZA [address] [address] [employer] [place], [place] [id number] * Magnesium (10/19/2024 1:29 PM CDT) Pathologist [facility] Magnesium 2.1 1.4 - 2.5 mg/dL Blood 10/19/2024 1:29 PM CDT 10/19/2024 2:00 PM CDT Guillermo Mayes MD LAB BLOOD ORDERABLES Final R esult Performing Organization Address City/[facility] Co de Phone Number NICOLE RAYGOZA [address] [address] Department of [employer] [place], [place] [id number] * (ABNORMAL) Basic metabolic panel (10/19/2024 1:29 PM CDT) Sodium 139 135 - 145 mmol/L Potassium, pl 3.8 3.3 - 4.9 mmol/L [facility] Chloride 102 97 - 110 mmol/L [facility] CO2 27 22 - 32 mmol/L [facility] Anion gap 10 2 - 15 mmol/L [facility] BUN 46(H) 6 - 25 mg/dL [facility] Creatinine 1.45(H) 0.80 - 1.30 mg/dL [facility] Comment:Icteric sample, test results may be affected. Glucose 134 70 - 199 mg/dL [facility] Comment: Interpretive Data Fasting glucose >/= [...] 2022. Calcium 8.3(L) 8.5 - 10.3 mg/dL [facility] Blood 10/19/2024 1:29 PM CDT 10/19/2024 2:00 PM CDT Guillermo Mayes MD LAB BLOOD ORDERABLES Final R esult [facility] [address] [address] Department [place] [address] * Hepatitis panel, acute Blood (10/19/2024 9:29 AM CDT) Hep A IgM Nonreactive Nonreactive Comment: Interpretive Data: If Hep A IgM Ab is reported as Equivocal, a new sample should be drawn in two weeks for testing. Current interpretive data was last revised on 19. Hep B core IgM Nonreactive Nonreactive [facility] Comment: Interpretive Data If HepB Core IgM Ab is reported as Equivocal, a new sample should be drawn in two weeks for testing. Current interpretive data was last revised on 19. Hep C Ab Nonreactive Nonreactive [facility] Comment: Interpretive Data Nonreactive: Antibodies to [...] last revised on 2019. HepBsAg Nonreactive Nonreactive [facility] Blood 10/19/2024 9:29 AM CDT 10/19/2024 9:54 AM CDT Guillermo Mayes MD LAB MICROBIOLOGY - GENERAL O RDERABLES Final Result Performing Organization Address [facility] de Phone Number [facility] [address] [address] [employer] [place] [address] * (ABNORMAL) Protime-INR (10/19/2024 9:29 AM CDT) PT 13.5(H) 9.7 - 13.0 sec INR 1.24(H) 0.90 - 1.20 [facility] Comment: Interpretive data Oral anticoagulant therapeutic ranges: [...] R esult Performing Organization Address [facility] Co de Phone Number [facility] [address] [address] [employer] [place], [place] [phone] * (ABNORMAL) Hepatic function panel (10/19/2024 9:29 [...] BLOOD ORDERABLES Final R esult NICOLE RAYGOZA [address] [address] Department [place] [address] * XR Chest 1 View - Portable [...] 10/19/2024 3:14 AM CDT Narrative [facility] - 10/19/2024 8:19 AM CDT Vent Rate: 88 bpm RR Interval: 679 msec CO Interval: 128 msec QRS Duration: 100 msec QT Interval: 374 msec QTC Interval: 419 msec P-R-T [place]: 26 - 17 - 30 degrees IMPRESSION: SINUS RHYTHM NONSPECIFIC INTRAVENTRICULAR CONDUCTION DELAY Electronically Signed By: Wily Murrieta MD, [facility] us Daisy Llamas MD ECG ORDERABLES Final Res ult [facility] * (ABNORMAL) eGFR (10/19/2024 2:59 AM [...] 10/19/2024 3:07 AM CDT us Yvette Russell ELECTRIC FORK OPERATOR LAB BLOOD ORDERABLES Fin al Result Performing Organization Address City/[facility] Co de Phone Number NICOLE RAYGOZA [address] [address] Department [place] [employer] [place] [address] * (ABNORMAL) CBC without differential [...] BLOOD ORDERABLES Final R esult NICOLE RAYGOZA [address] Department [place] [employer] [place] [address] * (ABNORMAL) Phosphorus (10/19/2024 2:59 AM CDT) Phosphorus, pl 2.1(L) 2.3 - 4.5 mg/dL Blood 10/19/2024 2:59 AM CDT 10/19/2024 3:07 AM CDT Guillermo Mayes MD LAB BLOOD ORDERABLES Final R esult Performing Organization Address City/[facility] Co de Phone Number NICOLE RAYGOZA [address] [address] Department [place] [employer] [place] [address] * Magnesium (10/19/2024 2:59 AM CDT) Pathologist [facility] Magnesium 2.2 1.4 - 2.5 mg/dL Blood 10/19/2024 2:59 AM CDT 10/19/2024 3:07 AM CDT Guillermo Mayes MD LAB BLOOD ORDERABLES Final R esult Performing Organization Address [facility] de Phone Number NICOLE RAYGOZA [address] [address] Department [place] [address] * (ABNORMAL) Basic metabolic panel (10/19/2024 2:59 AM CDT) Pathologist [facility] Sodium 139 135 - 145 mmol/L Potassium, pl 4.0 3.3 - 4.9 mmol/L [facility] Chloride 105 97 - 110 mmol/L [facility] CO2 25 22 - 32 mmol/L [facility] Anion gap 9 2 - 15 mmol/L [facility] BUN 51(H) 6 - 25 mg/dL [facility] Creatinine 1.35(H) 0.80 - 1.30 mg/dL [facility] Comment:Icteric sample, test results may be affected. Glucose 124 70 - 199 mg/dL [facility] Comment: Interpretive Data Fasting glucose >/= [...] LAB BLOOD ORDERABLES Final R esult NICOLE [address] Department [place] [address] * Clinical pathology report (10/18/2024 11:46 AM CDT) Miscellaneous 10/18/2024 11: 46 AM CDT 10/18/2024 11:46 AM CDT Narrative 10/18/2024 3:46 PM CDT EPIC results best viewed via link to PDF [facility] Department of Pathology [address] [place] [id number] Final Report Note to Patients: This [...] the details. Patient Name: TREVOR SHAW Address: [address] [place] [address] Gender: M : 1945 (Age: 79) Service: Cardiothoracic Location: [facility] Hospital #: [id number] Patient Type: IP Taken: 10/18/2024 Received: 10/18/2024 [...] determined by the Surgical Pathology Department at [facility] as part of an ongoing quality assurance manager program and in compliance with federally mandated [...] characteristics determined by the Surgical Pathology Department [facility]. It has not been cleared [...] MD LAB BLOOD ORDERABLES Final R esult [facility] [address] [facility] Department of Laboratories [place] [phone] * XR Chest 1 View - Portable [...] BLOOD ORDERABLES Fin al Result NICOLE IDALMIS [address] [address] Department [place] [address] * (ABNORMAL) CBC without differential (10/18/2024 3:32 AM CDT) WBC 14.9(H) 3.8 - 9.9 K/cumm Hgb 10.1(L) 13.0 - 17.5 g/dL [facility] Hct 30.3(L) 38.9 - 50.3 % [facility] Plt 150 150 - 400 K/cumm [facility] MPV 11.5 9.1 - 12.3 fL [facility] RBC 3.30(L) 4.30 - 5.80 M/cumm [facility] MCV 91.8 81.3 - 96.4 fL [facility] MCH 30.6 27.1 - 33.3 pg [facility] MCHC 33.3 32.3 - 35.7 g/dL [facility] RDW CV 15.3(H) 11.1 - 14.9 % [facility] RDW SD 48.7(H) 35.7 - 48.1 fL [facility] NRBC abs 0.38(H) 0.00 - 0.01 K/cumm [facility] Blood 10/18/2024 3:32 AM CDT 10/18/2024 3:35 AM CDT Guillermo Mayes MD LAB BLOOD ORDERABLES Final R esult LORINACE RAYGOZA [address] [address] [employer] [place] [address] * Phosphorus (10/18/2024 3:32 AM CDT) Phosphorus, pl 3.2 2.3 - 4.5 mg/dL Blood 10/18/2024 3:32 AM CDT 10/18/2024 3:35 AM CDT Guillermo Mayes MD LAB BLOOD ORDERABLES Final R esult NICOLE RAYGOZA [address] [address] [facility] [employer] [place], [place] [id number] * Magnesium (10/18/2024 3:32 AM CDT) Magnesium 2.3 1.4 - 2.5 mg/dL Blood 10/18/2024 3:32 AM CDT 10/18/2024 3:35 AM CDT Guillermo Mayes MD LAB BLOOD ORDERABLES Final R esult Performing Organization Address [facility] Co de Phone Number NICOLE RAYGOZA [address] [address] Department [employer] [place] [address] * (ABNORMAL) Lactate dehydrogenase (LD) (10/18/2024 3:32 AM CDT) Lactate dehydrogenase (LDH) 672(H) 100 - 250 Units/L Comment:Hemolysis present. R esults may be affected. Blood 10/18/2024 3:32 AM CDT 10/18/2024 6:38 AM CDT Jonathan Rodriguez MD LAB BLOOD ORDERABLES Final Resu lt Performing Organization Address [facility] de Phone Number NICOLE [address] [address] Department [employer] [place] [address] * (ABNORMAL) Haptoglobin (10/18/2024 3:32 AM CDT) Haptoglobin <10(L) 30 - 200 mg/dL Comment:Hemolysis present. R esults may be affected. Blood 10/18/2024 3:32 AM CDT 10/18/2024 6:38 AM CDT Jonathan Rodriguez MD LAB BLOOD ORDERABLES Final Resu lt Performing Organization Address [facility] de Phone Number NICOLE [address] [address] Department [employer] [place] [address] * (ABNORMAL) Hepatic function panel (10/18/2024 3:32 AM CDT) Bilirubin, total 1.1 0.1 - 1.2 mg/dL Bilirubin, direct 0.4(H) 0.1 - 0.3 mg/dL [facility] Protein, pl 5.6(L) 6.5 - 8.5 g/dL [facility] Albumin 3.4(L) 3.5 - 5.0 g/dL [facility] Alk phos 98 40 - 130 Units/L [facility] ALT 1,579(H) 7 - 55 Units/L [facility] AST 700(H) 10 - 50 Units/L [facility] Blood 10/18/2024 3:32 AM CDT 10/18/2024 3:27 PM CDT us Jonathan Rodriguez MD LAB BLOOD ORDERABLES Final Resu lt [facility] [address] Department [place] [address] * (ABNORMAL) Basic metabolic panel (10/18/2024 3:32 [...] ORDERABLES Final R esult Performing Organization Address City/[facility]/ZIP Co de Phone Number NICOLE RAYGOZA [address] [address] [facility] [employer] [place] [address] * POCT glucose (10/17/2024 6:21 PM CDT) Glucose, POC 125 70 - 199 mg/dL Blood 10/17/2024 6:21 PM CDT 10/17/2024 6:21 PM CDT Guillermo Mayes MD LAB POCT ORDERABLES - DEVICE Final Result Performing Organization Address [facility] Co de Phone Number NICOLE RAYGOZA [address] [address] Department [employer] [place] [address] * (ABNORMAL) Calcium, ionized, whole blood (10/17/2024 6:00 PM CDT) Ca, ionized, bld 4.22(L) 4.50 - 5.10 mg/dL Blood 10/17/2024 6:00 PM CDT 10/17/2024 6:11 PM CDT Guillermo Mayes MD LAB BLOOD ORDERABLES Final R esult Performing Organization Address [facility] Co de Phone Number NICOLE RAYGOZA [address] [address] Department [employer] [place], [place] [phone] * (ABNORMAL) eGFR (10/17/2024 6:00 PM CDT) [...] LAB BLOOD ORDERABLES Final R esult NICOLE [address] [address] Department [place] [address] * (ABNORMAL) CBC with auto differential (10/17/2024 6:00 PM CDT) WBC 15.4(H) 3.8 - 9.9 K/cumm Hgb 9.9(L) 13.0 - 17.5 g/dL [facility] Hct 29.5(L) 38.9 - 50.3 % [facility] Plt 156 150 - 400 K/cumm [facility] MPV 12.0 9.1 - 12.3 fL [...] ORDERABLES Edited Result - Final NICOLE RAYGOZA [address] [address] [employer] [place] [address] * (ABNORMAL) Manual Differential (10/17/2024 6:00 PM [...] BLOOD ORDERABLES Final R esult NICOLE RAYGOZA [address] [address] [place] [address] * Phosphorus (10/17/2024 6:00 PM CDT) Pathologist [facility] Phosphorus, pl 3.9 2.3 - 4.5 mg/dL Blood 10/17/2024 6:00 PM CDT 10/17/2024 6:11 PM CDT Guillermo Mayes MD LAB BLOOD ORDERABLES Final R esult NICOLE RAYGOZA [address] [address] Department [employer] [place] [address] * Magnesium (10/17/2024 6:00 PM CDT) Magnesium 2.4 1.4 - 2.5 mg/dL Blood 10/17/2024 6:00 PM CDT 10/17/2024 6:11 PM CDT Guillermo Mayes MD LAB BLOOD ORDERABLES Final R esult Performing Organization Address [facility] de Phone Number NICOLE RAYGOZA [address] [address] [facility] [employer] [place] [address] * (ABNORMAL) Blood gas, arterial (10/17/2024 6:00 [...] R esult Performing Organization Address [facility] Co de Phone Number NICOLE RAYGOZA [address] [address] [facility] [employer] [place] [address] * (ABNORMAL) Basic metabolic panel (10/17/2024 6:00 PM CDT) Sodium 139 135 - 145 mmol/L Potassium, pl 3.7 3.3 - 4.9 mmol/L CERNER Chloride 102 97 - 110 mmol/L [facility] CH CO2 23 22 - 32 mmol/L [facility] CH Anion gap 14 2 - 15 mmol/L [facility] CH BUN 79(H) 6 - 25 mg/dL [facility] CH Creatinine 2.09(H) 0.80 - 1.30 mg/dL [facility] Glucose 118 70 - 199 mg/dL [facility] Comment: Interpretive Data Fasting glucose >/= [...] 2022. Calcium 8.1(L) 8.5 - 10.3 mg/dL [facility] Blood 10/17/2024 6:00 PM CDT 10/17/2024 6:11 PM CDT Guillermo Mayes MD LAB BLOOD ORDERABLES Final R esult [address] [place] [address] * TRANSTHORACIC ECHO (TTE) LIMITED/FOLLOW UP W LTD DOPPLER/CF WO CONTRAST (10/17/2024 9:24 AM CDT) Anatomical Region Laterality Modality Ultrasound 10/17/2024 9:00 AM CDT Narrative 10/17/2024 1:24 [place] [address] Limited Echocardiogram Report Patient Name: TREVOR SHAW : 1945 Study Date: 10/17/2024 9:00:17 AM Gender: M Tech: Location: [id number] Ref Provider: GUILLERMO MAYES Height(Cm): 182 BSA: [...] tamponade. Electronically Signed By: Boris Zaragoza MD, [facility] 10/17/2024 1:24:06 PM CDT Procedure Note Boris Zaragoza MD - 10/17/2024 [place] [address] Limited Echocardiogram Report Patient Name: TREVOR SHAW : 1945 Study Date: 10/17/2024 9:00:17 AM Gender: M Tech: Location: [id number] Ref Provider: GUILLERMO MAYES Height(Cm): 182 BSA: [...] tamponade. Electronically Signed By: Boris Zaragoza MD, [facility] 10/17/2024 1:24:06 PM CDT us Guillermo Mayes MD CV ECHO PROCEDURES Final Res ult * Calcium, ionized, whole blood (10/17/2024 8:03 AM CDT) Ca, ionized, bld 4.51 4.50 - 5.10 mg/dL Blood 10/17/2024 8:03 AM CDT 10/17/2024 8:19 AM CDT Angelica Hagan ELECTRIC FORK OPERATOR LAB BLOOD ORDERABLES Final Result NICOLE RAYGOZA [address] [address] [place] [address] * (ABNORMAL) eGFR (10/17/2024 8:03 [...] CDT 10/17/2024 8:22 AM CDT Angelica Hagan ELECTRIC FORK OPERATOR LAB BLOOD ORDERABLES Final Result NICOLE RAYGOZA [address] [address] Liu Department [place] [address] * Magnesium (10/17/2024 8:03 AM CDT) Magnesium 2.4 1.4 - 2.5 mg/dL Blood 10/17/2024 8:03 AM CDT 10/17/2024 8:22 AM CDT Angelica Hagan ELECTRIC FORK OPERATOR LAB BLOOD ORDERABLES Final Result NICOLE RAYGOZA [address] Department [place] [address] * (ABNORMAL) Basic metabolic panel (10/17/2024 8:03 AM CDT) Pathologist [facility] Sodium 139 135 - 145 mmol/L Potassium, pl 4.3 3.3 - 4.9 mmol/L CERNER Chloride 100 97 - 110 mmol/L [facility] CH CO2 21(L) 22 - 32 mmol/L [facility] CH Anion gap 18(H) 2 - 15 mmol/L [facility] CH BUN 84(H) 6 - 25 mg/dL [facility] CH Creatinine 2.42(H) 0.80 - 1.30 mg/dL [facility] CH Glucose 142 70 - 199 mg/dL [facility] Comment: Interpretive Data Fasting glucose >/= [...] 2022. Calcium 8.3(L) 8.5 - 10.3 mg/dL [facility] Blood 10/17/2024 8:03 AM CDT 10/17/2024 8:22 AM CDT Angelica Hagan ELECTRIC FORK OPERATOR LAB BLOOD ORDERABLES Final Result Performing Organization Address City/[facility]/ZIP Co de Phone Number NICOLE RAYGOZA [address] [address] Department [place] [address] * (ABNORMAL) Lactate (10/17/2024 6:41 AM CDT) Lactate 2.2(H) 0.7 - 2.0 mmol/L Blood 10/17/2024 6:41 AM CDT 10/17/2024 6:45 AM CDT Daisy Llamas MD LAB BLOOD ORDERABLES Kamla l Result NICOLE RAYGOZA [address] [address] [employer] [place] [address] * (ABNORMAL) CBC without differential (10/17/2024 6:41 AM CDT) WBC 15.8(H) 3.8 - 9.9 K/cumm Hgb 9.7(L) 13.0 - 17.5 g/dL [facility] CH Hct 29.4(L) 38.9 - 50.3 % [facility] CH Plt 160 150 - 400 K/cumm [facility] MPV 11.9 9.1 - 12.3 fL [facility] RBC 3.24(L) 4.30 - 5.80 M/cumm [facility] CH MCV 90.7 81.3 - 96.4 fL [facility] CH MCH 29.9 27.1 - 33.3 pg [facility] CH MCHC 33.0 32.3 - 35.7 g/dL [facility] CH RDW CV 15.0(H) 11.1 - 14.9 % [facility] CH RDW SD 47.9 35.7 - 48.1 fL [facility] NRBC abs 0.87(H) 0.00 - 0.01 K/cumm [facility] CH Blood 10/17/2024 6:41 AM CDT 10/17/2024 6:47 AM CDT Daisy Llamas MD LAB BLOOD ORDERABLES Kamla l Result NICOLE RAYGOZA [address] [address] [facility] [employer] [place] [address] * (ABNORMAL) Lactate (10/17/2024 5:51 AM CDT) Lactate 2.5(H) 0.7 - 2.0 mmol/L Blood 10/17/2024 5:51 AM CDT 10/17/2024 5:53 AM CDT Daisy Llamas MD LAB BLOOD ORDERABLES Kamla l Result Performing Organization Address City/[facility] Co de Phone Number NICOLE [address] Liu [place] [address] * (ABNORMAL) CBC without differential [...] ORDERABLES Kamla l Result Performing Organization Address City/[facility]/ZIP Co de Phone Number NICOLE [address] Department of [employer] [place], [place] [phone] * Vancomycin level random (10/17/2024 4:57 AM CDT) Pathologist [facility] Vancomycin random 17.5 mcg/mL Comment: Interpretive Data No reference ranges have been established for random drug levels. Current Interpretive Data was last revised on 2020. Blood 10/17/2024 4:57 AM CDT 10/17/2024 11:47 AM CDT Guillermo Mayes MD LAB BLOOD ORDERABLES Final R esult NICOEL RAYGOAZ [address] Department [place] [address] * XR Chest 1 View - Portable [...] Final Result Performing Organization Address [facility] Co de Phone Number NICOLE RAYGOZA [address] [address] Department [place] [employer] [place] [address] * (ABNORMAL) CBC without differential (10/16/2024 9:31 PM CDT) WBC 18.4(H) 3.8 - 9.9 K/cumm Hgb 9.7(L) 13.0 - 17.5 g/dL [facility] CH Hct 29.2(L) 38.9 - 50.3 % [facility] Plt 198 150 - 400 K/cumm [facility] MPV 11.9 9.1 - 12.3 fL [facility] RBC 3.22(L) 4.30 - 5.80 M/cumm [facility] MCV 90.7 81.3 - 96.4 fL [facility] MCH 30.1 27.1 - 33.3 pg [facility] MCHC 33.2 32.3 - 35.7 g/dL [facility] CH RDW CV 14.7 11.1 - 14.9 % [facility] CH RDW SD 47.2 35.7 - 48.1 fL [facility] NRBC abs 1.34(H) 0.00 - 0.01 K/cumm [facility] Blood 10/16/2024 9:31 PM CDT 10/16/2024 9:45 PM CDT us Daisy Llamas MD LAB BLOOD ORDERABLES Kamla l Result NICOLE RAYGOZA [address] [address] Department [employer] [place] [address] * Critical Care (10/16/2024 8:44 [...] plan with the ICU team and other medical/employment consultant staff, making frequent assessments and decisions [...] LAB POCT ORDERABLES - DEVICE Final Result [facility] [address] [address] Department [place] [address] * Transfuse RBC (10/16/2024 7:30 PM CDT) Blood Guillermo Mayes MD BLOOD TRANSFUSION ORDERABLES Final Result NICOLE RAYGOZA [address] Department [place] [employer] [place] [address] * Transfuse RBC (10/16/2024 4:09 PM CDT) Blood us Angelica Hagan ELECTRIC FORK OPERATOR BLOOD TRANSFUSION ORDERABLE S Final Result Performing Organization Address City/[facility] Co de Phone Number NICOLE RAYGOZA [address] [address] Department of [employer] [place], [place] [phone] * (ABNORMAL) eGFR (10/16/2024 2:38 PM CDT) [...] BLOOD ORDERABLES Final R esult NICOLE RAYGOZA [address] [address] Department of [employer] [place], [place] [id number] * (ABNORMAL) CBC without differential (10/16/2024 2:38 PM CDT) WBC 21.1(H) 3.8 - 9.9 K/cumm Hgb 7.8(L) 13.0 - 17.5 g/dL [facility] Hct 23.5(L) 38.9 - 50.3 % [facility] Plt 201 150 - 400 K/cumm [facility] MPV 12.0 9.1 - 12.3 fL [facility] RBC 2.58(L) 4.30 - 5.80 M/cumm [facility] MCV 91.1 81.3 - 96.4 fL [facility] MCH 30.2 27.1 - 33.3 pg [facility] MCHC 33.2 32.3 - 35.7 g/dL [facility] RDW CV 14.7 11.1 - 14.9 % [facility] RDW SD 46.7 35.7 - 48.1 fL [facility] NRBC abs 0.93(H) 0.00 - 0.01 K/cumm [facility] Blood 10/16/2024 2:38 PM CDT 10/16/2024 2:38 PM CDT Guillermo Mayes MD LAB BLOOD ORDERABLES Final R esult Performing Organization Address City/[facility] Co de Phone Number NICOLE RAYGOZA [address] [address] [employer] [place], [place] [phone] * Magnesium (10/16/2024 2:38 PM CDT) Pathologist [facility] Magnesium 2.2 1.4 - 2.5 mg/dL Blood 10/16/2024 2:38 PM CDT 10/16/2024 2:38 PM CDT Guillermo Mayes MD LAB BLOOD ORDERABLES Final R esult NICOLE RAYGOZA [address] [address] Department [place] [employer] [place] [address] * (ABNORMAL) Lactate dehydrogenase (LD) (10/16/2024 2:38 PM CDT) Pathologist [facility] Lactate dehydrogenase (LDH) 1,808(H) 100 - 250 Units/L Blood 10/16/2024 2:38 PM CDT 10/18/2024 7:05 AM CDT Jonathan Rodriguez MD LAB BLOOD ORDERABLES Final Resu lt Performing Organization Address [facility] de Phone Number NICOLE RAYGOZA [address] [address] [facility] [place] [employer] [place] [address] * (ABNORMAL) Haptoglobin (10/16/2024 2:38 PM CDT) Haptoglobin <10(L) 30 - 200 mg/dL Comment:Hemolysis present. R esults may be affected. Blood 10/16/2024 2:38 PM CDT 10/18/2024 7:05 AM CDT Jonahtan Rodriguez MD LAB BLOOD ORDERABLES Final Resu lt Performing Organization Address [facility] de Phone Number NICOLE RAYGOZA [address] [address] [facility] [place] [employer] [place] [address] * (ABNORMAL) Basic metabolic panel (10/16/2024 2:38 PM CDT) Sodium 138 135 - 145 mmol/L Potassium, pl 4.9 3.3 - 4.9 mmol/L CERNER Chloride 102 97 - 110 mmol/L [facility] CO2 17(L) 22 - 32 mmol/L [facility] Anion gap 19(H) 2 - 15 mmol/L [facility] BUN 80(H) 6 - 25 mg/dL [facility] Creatinine 2.40(H) 0.80 - 1.30 mg/dL [facility] Comment:Icteric sample, test results may be affected. Glucose 148 70 - 199 mg/dL [facility] Comment: Interpretive Data Fasting glucose >/= [...] ORDERABLES Final R esult Performing Organization Address City/[facility] Co de Phone Number [facility] [address] [address] Department [employer] [place] [address] * (ABNORMAL) Lactate (10/16/2024 2:24 PM CDT) Pathologist [facility] Lactate 4.8(C) 0.7 - 2.0 mmol/L Comment:Critical result call ed to and read back by Roopa Galeana on 10/16/2024 14:44:25 CDT to Anna Rob. Blood 10/16/2024 2:24 PM CDT 10/16/2024 2:37 PM CDT Guillermo Mayes MD LAB BLOOD ORDERABLES Final R esult Performing Organization Address [facility] Co de Phone Number [facility] [address] [address] Department [employer] [place], [place] [phone] * Calcium, ionized, whole blood (10/16/2024 2:24 PM CDT) Pathologist [facility] Ca, ionized, bld 4.56 4.50 - 5.10 mg/dL Blood 10/16/2024 2:24 PM CDT 10/16/2024 2:37 PM CDT Guillermo Mayes MD LAB BLOOD ORDERABLES Final R esult Performing Organization Address City/[facility] Co de Phone Number [facility] [address] [address] Department [employer] [place], [place] [phone] * (ABNORMAL) Blood gas, arterial (10/16/2024 2:24 [...] ORDERABLES Final R esult Performing Organization Address City/[facility]/ZIP Co de Phone Number NICOLE RAYGOZA [address] [address] [place] [address] * Prepare RBC: 2 Units (10/16/2024 2:09 PM CDT) Product code [id number] Unit Number [id number] [facility] Product Blood Type OPOS [facility] CH Dispense Status PRESUMED TRANSFUSED [facility]ER CH Product code [id number] [facility] CH Unit Number [id number] [facility] CH Product Blood Type OPOS [facility] CH Dispense Status PRESUMED TRANSFUSED [facility] CH Blood 10/16/2024 2:09 PM CDT Narrative [facility] CH - 10/17/2024 10:15 AM CDT Are special requirements needed? (All products are leukoreduced and CMV- safe)- >No Date required:-[id number] LRRBC # of Sbxez-5-Nozsl Reasons:-Hgb <7 g/dL} us Angelica Hagan NP BLOOD BANK PRODUCT ORDERABL ES Final Result Performing Organization Address City/[facility]/ZIP Co de Phone Number NICOLE RAYGOZA [address] [address] Department [place] [employer] [place] [address] * Transfuse RBC (10/16/2024 12:30 PM CDT) Blood Angelica Hagan ELECTRIC FORK OPERATOR BLOOD TRANSFUSION ORDERABLE S Final Result NICOLE [address] [address] [place] [address] * Blood culture Blood (10/16/2024 12:04 PM CDT) Report Final Report: No growth Comment:Testing performed by : [facility], [address] [facility], [place]., [address] Blood 10/16/2024 12:0 4 PM CDT 10/16/2024 [...] performance characteristics have been verified by the [facility] Microbiology Laboratory. For questions about this culture, contact the Microbiology Laboratory at [phone]. Interpretive data was last revised on 24. Roopa Yeboah ELECTRIC FORK OPERATOR LAB MICROBIOLOGY - GEN ERAL ORDERABLES Final Result NICOLE RAYGOZA [address] [address] Department [place] [address] * (ABNORMAL) CBC without differential (10/16/2024 12:04 PM CDT) WBC 22.1(H) 3.8 - 9.9 K/cumm Hgb 6.8(L) 13.0 - 17.5 g/dL [facility] Hct 20.7(L) 38.9 - 50.3 % [facility] Plt 203 150 - 400 K/cumm [facility] MPV 12.1 9.1 - 12.3 fL [facility] RBC 2.22(L) 4.30 - 5.80 M/cumm [facility] CH MCV 93.2 81.3 - 96.4 fL [facility] CH Comment:MCV delta due to sage arent blood transfusion. Spoke with Genaro Hawkins(RN) @1250 MCH 30.6 27.1 - 33.3 pg [facility] MCHC 32.9 32.3 - 35.7 g/dL [facility] RDW CV 14.4 11.1 - 14.9 % [facility] RDW SD 47.8 35.7 - 48.1 fL [facility] NRBC abs 0.90(H) 0.00 - 0.01 K/cumm [facility] Blood 10/16/2024 12:0 4 PM CDT 10/16/2024 12:08 PM CDT us Guillermo Mayes MD LAB BLOOD ORDERABLES Final R esult NICOLE RAYGOZA [address] [address] Department [place] [address] * Arterial Line Insertion (10/16/2024 11:42 AM CDT) Narrative Dani Quintero MD - 10/16/2024 11:42 AM CDT Dani Quintero MD 10/16/2024 2:43 PM Arterial Line Insertion Date/Time: 10/16/2024 11:42 AM Performed by: Naty Dunbar DO Authorized by: Naty Dunbar DO [place] Protocol: RN Notified of Procedure: yes Informed [...] Dunbar DO Authorized by: Naty Dunbar DO [place] Protocol: RN Notified of Procedure: yes Informed [...] tendency for uric acid stone formation. Source: [facility] Current Interpretive Data was last revised [...] 10/16/2024 11:35 AM CDT us Roopa Yeboah ELECTRIC FORK OPERATOR LAB MICROBIOLOGY - GEN ERAL ORDERABLES Final Result Performing Organization Address [facility]/ZIP Co de Phone Number NICOLE RAYGOZA [address] [address] [facility] [employer] [place] [address] * (ABNORMAL) Urinalysis, microscopic only (10/16/2024 11:30 AM CDT) WBC, ur 6-10(A) 0 - 5 /HPF RBC, ur >50(A) 0 - 2 /HPF [facility] Epithelial cells, squamous, ur 1-5 0 - 5 /HPF [facility] Bacteria, ur Trace(A) [facility] Mucous, ur Present(A) [facility] Calcium oxalate crystals, ur 2+(A) [facility] Hyaline casts, ur 1-5 0 - 10 /LPF [facility] Culture Reflex Comment Reflex conditions for urine culture (WBC >10) not met. [facility] Urine, clean voided 10/16/2024 11:30 AM CDT 10/16/2024 11:35 AM CDT Roopa Yeboah ELECTRIC FORK OPERATOR LAB URINE ORDERABLES F inal Result Performing Organization Address [facility] de Phone Number NICOLE RAYGOZA [address] [address] [facility] [place] [employer] [place] [address] * Infection Prevention MRSA Only (Staphylococcus aureus) PCR Nasal (10/16/2024 11:03 AM CDT) PCR Scrn, Methicillin resistant Staphylococcus aureus (MRSA) Not Detected Not Detected Comment: Interpretive Data Testing performed using Nucleic Acid Amplification with the [employer] Xpert MRSA NxG Assay. This assay detects target DNA from mecA, mecC and the SCCmec insertion site of Staphylococcus aureus using Real-Time PCR and has been cleared by the FDA. Performance characteristics have been verified by the [facility]. Current Interpretive Data was last revised on 2022 Nasal 10/16/2024 11:0 3 AM CDT 10/16/2024 11:39 AM CDT Angelica Hagan ELECTRIC FORK OPERATOR LAB MICROBIOLOGY - GENERAL ORDERABLES Final Result Performing Organization Address [facility] Co de Phone Number NICOLE RAYGOZA [address] [address] Department [place] [address] CH * Prepare RBC: 1 Units (10/16/2024 10:37 AM CDT) Pathologist [facility] Product code [id number] Unit Number [id number] [facility] Product Blood Type OPOS [facility] Dispense Status PRESUMED TRANSFUSED [facility]ER Blood 10/16/2024 10:3 7 AM CDT Narrative [facility] CH - 10/16/2024 10:15 PM CDT Are special requirements needed? (All products are leukoreduced and CMV- safe)- >No Date required:-[id number] LRRBC # of Jayjv-2-Gznla Reasons:-Active bleeding, Hgb <8 g/dL} Angelica Hagan NP BLOOD BANK PRODUCT ORDERABL ES Final Result Performing Organization Address [facility] de Phone Number NICOLE RAYGOZA [address] [address] Department [place] [address] * (ABNORMAL) POC Blood Gas and Chemistries, [...] Final Result Performing Organization Address [facility] Co de Phone Number NICOLE RAYGOZA [address] [address] Department [place] [employer] [place] [address] * (ABNORMAL) Lactate (10/16/2024 10:01 AM CDT) Pathologist [facility] Lactate 10.5(C) 0.7 - 2.0 mmol/L Comment:Critical result call ed to and read back by Roopa Galeana RN_ (_) on 10/16/2024 10:12:28 CDT to fareed santana. Blood 10/16/2024 10:0 1 AM CDT 10/16/2024 10:04 AM CDT Roopa Yeboah ELECTRIC FORK OPERATOR LAB BLOOD ORDERABLES F inal Result Performing Organization Address City/[facility]/ZIP Co de Phone Number LORINACE RAYGOZA [address] [address] Department of [employer] [place], [place] [phone] * (ABNORMAL) eGFR (10/16/2024 10:01 AM CDT) [...] BLOOD ORDERABLES F inal Result NICOLE RAYGOZA [address] [address] Department of Laboratories [place], [place] [phone] * Blood culture Blood (10/16/2024 10:01 AM CDT) Report Final Report: No growth Comment:Testing performed by : [facility], [address] [place]., [address] Blood 10/16/2024 10:0 1 AM CDT 10/16/2024 [...] performance characteristics have been verified by the [facility] Microbiology Laboratory. For questions about this culture, contact the Microbiology Laboratory at [phone]. Interpretive data was last revised on 24. Roopa Yeboah ELECTRIC FORK OPERATOR LAB MICROBIOLOGY - GEN ERAL ORDERABLES Final Result Performing Organization Address [facility] Co de Phone Number NICOLE RAYGOZA [address] [address] [place] [address] * (ABNORMAL) aPTT (10/16/2024 10:01 AM CDT) aPTT 26(L) 28 - 38 sec Comment: Interpretive Data Heparin therapeutic range: 66.0 - 100.0 seconds. Range based on correlation with therapeutic heparin activity range of 0.3 - 0.7 Units/mL. Current interpretive data was last revised on 2023. Blood 10/16/2024 10:0 1 AM CDT 10/16/2024 10:05 AM CDT Angelica Hagan ELECTRIC FORK OPERATOR LAB BLOOD ORDERABLES Final Result Performing Organization Address [facility] Co de Phone Number NICOLE [address] [address] [place] [address] * (ABNORMAL) Protime-INR (10/16/2024 10:01 [...] BLOOD ORDERABLES Final Result Performing Organization Address City/[facility] Co de Phone Number NICOLE RAYGOZA [address] [address] [place] [address] * Type and screen (10/16/2024 10:01 AM CDT) Nani, indirect Negative ABO Rh O Positive [facility] Blood 10/16/2024 10:0 1 AM CDT 10/16/2024 10:07 AM CDT Narrative NICOLE - 10/16/2024 11:01 AM CDT Has the patient had Daratumumab or Isatuximab in the past 6 months?->Unknown Angelica Hagan NP LAB BLOOD BANK TEST ORDERAB LES Final Result Performing Organization Address [facility] Co de Phone Number NICOLE RAYGOZA [address] [address] [place] [address] * Direct antiglobulin test (10/16/2024 10:01 AM CDT) Direct Nani BS Interpretation Negative Blood 10/16/2024 10:0 1 AM CDT 10/18/2024 7:18 AM CDT Jonathan Rodriguez MD LAB BLOOD BANK TEST ORDERABLES Final Result Performing Organization Address City/[facility] Co de Phone Number NICOLE RAYGOZA [address] [address] Department [place] [address] * (ABNORMAL) Blood gas, arterial (10/16/2024 10:01 [...] Hagan NP LAB BLOOD ORDERABLES Final Result [facility] [address] [address] [place] [address] * (ABNORMAL) Basic metabolic panel (10/16/2024 10:01 AM CDT) Sodium 136 135 - 145 mmol/L Potassium, pl 5.6(H) 3.3 - 4.9 mmol/L CERNER Chloride 97 97 - 110 mmol/L [facility] CH CO2 14(L) 22 - 32 mmol/L [facility] CH Anion gap 25(H) 2 - 15 mmol/L [facility] BUN 78(H) 6 - 25 mg/dL [facility] Creatinine 2.50(H) 0.80 - 1.30 mg/dL [facility] Comment:Icteric sample, test results may be affected. Glucose 122 70 - 199 mg/dL [facility] Comment: Interpretive Data Fasting glucose >/= [...] 10:05 AM CDT us Roopa Barksdale Edilia ELECTRIC FORK OPERATOR LAB BLOOD ORDERABLES F inal Result NICOLE [address] Department of Laboratories [place] [phone] * TRANSTHORACIC ECHO (TTE) LIMITED/FOLLOW UP W LTD DOPPLER/CF WO CONTRAST (10/16/2024 9:35 AM CDT) Anatomical Region Laterality Modality Ultrasound 10/16/2024 8:12 AM CDT Narrative 10/16/2024 9:[place] [address] Limited Echocardiogram Report Patient Name: TREVOR SHAW : 1945 Study Date: 10/16/2024 8:12:00 AM Gender: M Tech: Location: [id number] Ref Provider: ANGELICA HAGAN Height(Cm): 182 BSA: [...] Procedure Note Shaila Fuentes MD - 10/16/2024 [place] [address] Limited Echocardiogram Report Patient Name: TREVOR SHAW : 1945 Study Date: 10/16/2024 8:12:00 AM Gender: M Tech: Location: [id number] Ref Provider: ANGELICA HAGAN Height(Cm): 182 BSA: [...] Units (10/16/2024 9:08 AM CDT) Product code [id number] Unit Number [id number] [facility] Product Blood Type OPOS [facility] Dispense Status PRESUMED TRANSFUSED [facility] Blood 10/16/2024 9:08 AM CDT Narrative [facility] - 10/16/2024 10:15 PM CDT Are special requirements needed? (All products are leukoreduced and CMV- safe)- >No Date required:-[id number] LRRBC # of [id number] Reasons:-Cardiovascular disease, Hgb <8 g/dL} Angelica Hagan NP BLOOD BANK PRODUCT ORDERABL ES Final Result [facility] [address] Department [place] [address] * CT Chest Abdomen Pelvis [...] by: Richie Cox M.D. us Angelica Hagan ELECTRIC FORK OPERATOR IMG CT PROCEDURES Final Res ult * [...] - DEVICE Final Result Performing Organization Address City/[facility] Co de Phone Number NICOLE RAYGOZA [address] [address] [facility] [employer] [place] [address] * POCT glucose (10/16/2024 8:24 AM CDT) Glucose, POC 136 70 - 199 mg/dL Blood 10/16/2024 8:24 AM CDT 10/16/2024 8:24 AM CDT us Guillermo Mayes MD LAB POCT ORDERABLES - DEVICE Final Result Performing Organization Address [facility] Phone Number NICOLE RAYGOZA [address] [place] [place] [address] * (ABNORMAL) eGFR (10/16/2024 5:14 AM CDT) [...] ORDERABLES Fin al Result Performing Organization Address City/[facility]/ZIP Co de Phone Number NICOLE RAYGOZA [address] Department [place] [employer] [place] [address] * (ABNORMAL) CBC without differential (10/16/2024 5:14 AM CDT) WBC 19.8(H) 3.8 - 9.9 K/cumm Hgb 7.9(L) 13.0 - 17.5 g/dL [facility] Hct 26.4(L) 38.9 - 50.3 % [facility] Plt 229 150 - 400 K/cumm [facility] MPV 12.1 9.1 - 12.3 fL [facility] RBC 2.47(L) 4.30 - 5.80 M/cumm [facility] MCV 106.9(H) 81.3 - 96.4 fL [facility] Comment:MCV delta possibly d ue to low sample volume. MCH 32.0 27.1 - 33.3 pg [facility] MCHC 29.9(L) 32.3 - 35.7 g/dL [facility] RDW CV 14.8 11.1 - 14.9 % [facility] RDW SD 56.7(H) 35.7 - 48.1 fL [facility] NRBC abs 0.78(H) 0.00 - 0.01 K/cumm [facility] Blood 10/16/2024 5:14 AM CDT 10/16/2024 6:08 AM CDT us Guillermo Mayes MD LAB BLOOD ORDERABLES Final R esult NICOLE [address] Department [employer] [place], [place] [id number] * (ABNORMAL) Basic metabolic panel (10/16/2024 5:14 [...] CH Glucose 105 70 - 199 mg/dL [facility] Comment: Interpretive Data Fasting glucose >/= 126 [...] 2022. Calcium 8.8 8.5 - 10.3 mg/dL [facility] Blood 10/16/2024 5:14 AM CDT 10/16/2024 6:07 AM CDT Guillermo Mayes MD LAB BLOOD ORDERABLES Final R esult NICOLE RAYGOZA [address] Department [place] [address] * XR Chest 1 View - Portable [...] MD LAB BLOOD ORDERABLES Final R esult [facility] [address] [address] Department [place] [address] * (ABNORMAL) CBC without differential [...] BLOOD ORDERABLES Final R esult NICOLE RAYGOZA [address] [address] [place] [address] * (ABNORMAL) Basic metabolic panel (10/15/2024 1:32 [...] R esult Performing Organization Address [facility] Co de Phone Number NICOLE RAYGOZA [address] [address] Department [place] [employer] [place] [address] * POCT glucose (10/15/2024 11:55 AM CDT) Glucose, POC 134 70 - 199 mg/dL Blood 10/15/2024 11:5 5 AM CDT 10/15/2024 11:55 AM CDT Guillermo Mayes MD LAB POCT ORDERABLES - DEVICE Final Result Performing Organization Address [facility] de Phone Number NICOLE [address] [address] Department [place] [employer] [place] [address] * XR Chest 1 View - Portable [...] signed by: Jj Grubbs II, D.O. Result [facility] Guillermo Mayes MD IMG XR PROCEDURES Final Resu lt * ECG 12 lead (10/15/2024 1:15 AM FOOD PROCESSING SCIENTIST) 10/15/2024 1:15 AM FOOD PROCESSING SCIENTIST Narrative [facility] - 10/15/2024 11:28 AM CDT Vent Rate: 106 bpm RR Interval: 564 msec CO Interval: 0 msec QRS Duration: 101 msec QT Interval: 342 msec QTC Interval: 404 msec P-R-T Magnolia: 0 - 12 - 88 degrees IMPRESSION: POSSIBLE SINUS TACHYCARDIA ST ELEVATION, PROBABLY EARLY REPOLARIZATION NONSPECIFIC ST \T\ T-WAVE ABNORMALITY ABNORMAL RHYTHM ECG CONDUCTION DELAY HAS IMPROVED Electronically Signed By: Shaila Fuentes MD Teresa Knox MD ECG ORDERABLES Final Result Performing Organization Address [facility] Co de Phone Number [facility] Macrotherapy [facility] * POCT glucose (10/14/2024 8:35 PM FOOD PROCESSING SCIENTIST) Glucose, POC 147 70 - 199 mg/dL Blood 10/14/2024 8:35 PM FOOD PROCESSING SCIENTIST 10/14/2024 8:35 PM FOOD PROCESSING SCIENTIST Guillermo Mayes MD LAB POCT ORDERABLES - DEVICE Final Result Performing Organization Address City/[facility] Co de Phone Number NICOLE [address] [facility] [place] [address] * TRANSTHORACIC ECHO (TTE) COMPLETE W DOPPLER/CF WO CONTRAST (10/14/2024 9:52 AM FOOD PROCESSING SCIENTIST) LV EF 55 % CONS SCIMAGE Anatomical Region Laterality Modality Ultrasound 10/14/2024 7:18 AM FOOD PROCESSING SCIENTIST Narrative 10/14/2024 11:25 AM [place] [address] Echocardiogram Report Patient Name: TREVOR SHAW : 1945 Study Date: 10/14/2024 7:18:19 AM Gender: M Tech: [place] Location: [id number] Ref Provider: MIGDALIA SALCEDO Height(Cm): 183 BSA: [...] regurgitation. Electronically Signed By: Dr. Tracey Drew [facility] 10/14/2024 11:24:11 AM FOOD PROCESSING SCIENTIST Procedure Note Tracey Drew MD - 10/14/2024 [place] [address] Echocardiogram Report Patient Name: TREVOR SHAW : 1945 Study Date: 10/14/2024 7:18:19 AM Gender: M Tech: [place] Location: [id number] [facility] Provider: MIGDALIA SALCEDO Height(Cm): 183 BSA: 2.44 [...] regurgitation. Electronically Signed By: Dr. Tracey Drew [facility] 10/14/2024 11:24:11 AM FOOD PROCESSING SCIENTIST us Migdalia Salcedo NP CV ECHO PROCEDURES Final R esult * POCT glucose (10/14/2024 7:57 AM FOOD PROCESSING SCIENTIST) Glucose, POC 118 70 - 199 mg/dL Blood 10/14/2024 7:57 AM FOOD PROCESSING SCIENTIST 10/14/2024 7:57 AM FOOD PROCESSING SCIENTIST us Guillermo Mayes MD LAB POCT ORDERABLES - DEVICE Final Result Performing Organization Address City/State/[facility] Co de Phone Number [facility] [address] [address] Department [place] [address] * XR Chest 1 View - Portable - in AM (10/14/2024 6:00 AM FOOD PROCESSING SCIENTIST) Anatomical Region Laterality Modality Body, Chest N/A Computed Radiogr aphy 10/14/2024 7:54 AM FOOD PROCESSING SCIENTIST Impressions 10/14/2024 7:54 AM FOOD PROCESSING SCIENTIST Pacer leads are intact. Right IJ central venous catheter terminates in the superior cavoatrial junction. No pneumothorax or pleural effusion. Mediastinal silhouette within normal limits. Poststernotomy changes noted. Mild pulmonary vascular congestion. Electronically signed by: Jj Grubbs II, D.O. Narrative 10/14/2024 7:54 AM FOOD PROCESSING SCIENTIST EXAMINATION: XR CHEST 1 VIEW DATE: 10/14/2024 [...] lt * (ABNORMAL) eGFR (10/14/2024 5:20 AM FOOD PROCESSING SCIENTIST) eGFR 56(L) >=60 mL/min/1. 73 m2 Comment: [...] last reviewed 2021. Blood 10/14/2024 5:20 AM FOOD PROCESSING SCIENTIST 10/14/2024 5:30 AM FOOD PROCESSING SCIENTIST Yvette Russell ELECTRIC FORK OPERATOR LAB BLOOD ORDERABLES Fin al Result NICOLE RAYGOZA [address] Department of [employer] [place], [place] [phone] * (ABNORMAL) CBC without differential (10/14/2024 5:20 AM FOOD PROCESSING SCIENTIST) WBC 10.5(H) 3.8 - 9.9 K/cumm Hgb [...] K/cumm [facility] Blood 10/14/2024 5:20 AM FOOD PROCESSING SCIENTIST 10/14/2024 5:30 AM FOOD PROCESSING SCIENTIST us Guillermo Mayes MD LAB BLOOD ORDERABLES Final R esult NICOLE RAYGOZA [address] [address] Department of [employer] [place], [place] [phone] * Magnesium (10/14/2024 5:20 AM FOOD PROCESSING SCIENTIST) Magnesium 2.2 1.4 - 2.5 mg/dL Blood 10/14/2024 5:20 AM FOOD PROCESSING SCIENTIST 10/14/2024 5:30 AM FOOD PROCESSING SCIENTIST us Yvette Russell NP LAB BLOOD ORDERABLES Fin al Result NICOLE RAYGOZA [address] [address] Department [place] [address] * (ABNORMAL) Basic metabolic panel (10/14/2024 5:20 AM FOOD PROCESSING SCIENTIST) Sodium 140 135 - 145 mmol/L Potassium, pl 4.1 3.3 - 4.9 mmol/L [facility] Chloride 104 97 - 110 mmol/L [facility] CO2 21(L) 22 - 32 mmol/L [facility] Anion gap 15 2 - 15 mmol/L [facility] BUN 46(H) 6 - 25 mg/dL [facility] Creatinine 1.30 0.80 - 1.30 mg/dL [facility] Glucose 146 70 - 199 mg/dL [facility] Comment: Interpretive Data Fasting glucose >/= [...] 2022. Calcium 9.1 8.5 - 10.3 mg/dL [facility] Blood 10/14/2024 5:20 AM FOOD PROCESSING SCIENTIST 10/14/2024 5:30 AM FOOD PROCESSING SCIENTIST us Guillermo Mayes MD LAB BLOOD ORDERABLES Final R esult NICOLE RAYGOZA [address] [address] Department [place] [employer] [place] [address] * POCT glucose (10/13/2024 8:21 PM FOOD PROCESSING SCIENTIST) Glucose, POC 156 70 - 199 mg/dL Blood 10/13/2024 8:21 PM FOOD PROCESSING SCIENTIST 10/13/2024 8:21 PM FOOD PROCESSING SCIENTIST Guillermo Mayes MD LAB POCT ORDERABLES - DEVICE Final Result Performing Organization Address City/[facility] Co de Phone Number NICOLE RAYGOZA [address] [address] [facility] [place] [employer] [place] [address] * POCT glucose (10/13/2024 5:27 PM FOOD PROCESSING SCIENTIST) Glucose, POC 118 70 - 199 mg/dL Blood 10/13/2024 5:27 PM FOOD PROCESSING SCIENTIST 10/13/2024 5:27 PM FOOD PROCESSING SCIENTIST Guillermo Mayes MD LAB POCT ORDERABLES - DEVICE Final Result Performing Organization Address [facility] de Phone Number NICOLE RAYGOZA [address] [address] [place] [address] * XR Chest 1 Vw Portable (10/13/2024 4:35 PM FOOD PROCESSING SCIENTIST) Anatomical Region Laterality Modality Body, Chest N/A Computed Radiogr aphy 10/13/2024 4:38 PM FOOD PROCESSING SCIENTIST Impressions 10/13/2024 4:38 PM FOOD PROCESSING SCIENTIST No pneumothorax. Electronically signed by: Elena Bower M.D. Narrative 10/13/2024 4:38 PM FOOD PROCESSING SCIENTIST EXAMINATION: XR CHEST 1 VIEW HISTORY: The [...] failure. The distal tip of a retracted Brook[place]-Fausto catheter is in the superior vena cava. [...] failure. The distal tip of a retracted [place]-Fausto catheter is in the superior vena cava. IMPRESSION: No pneumothorax. Electronically signed by: Elena Bower M.D. Teresa Knox MD IMG XR PROCEDURES Kamla l Result * ICD LEAD DUAL 2 LEADS PPM OR ICD (10/13/2024 3:51 PM FOOD PROCESSING SCIENTIST) Anatomical Region Laterality Modality X-Ray Angiograph y 10/13/2024 Narrative 10/19/2024 1:49 PM CDT [employer] Job ID: [id number] [employer] Document ID: [id number] Dictated date/time: [id number] PACEMAKER IMPLANTATION An 79-year-old patient, status post CABG and AVR, has developed episodes of PAF and asystole. Dual-chamber pacemaker recommended. REFERRING PHYSICIANS Dr. Flaca Giles and Dr. Mayes. IMPLANTING PHYSICIAN Dr. Knox. PROCEDURES 1. Implantation of a dual-chamber pacemaker system by [employer]. 2. Venogram. 3. Insertion of a Tyrx pouch. PROCEDURE He was brought to the process laboratory specialist. Left neck subclavicular was prepped in the usual sterile fashion. 1% lidocaine with epi was used. Venogram obtained. Pacemaker pocket was created. Access obtained axillary subclavian vein. Two J wires were advanced over which a 7 SafeSheath and a 6 SafeSheath were advanced. Both the sheaths were flushed confirming venous return. Through the 7 sheath a Medtronic ventricular pacing lead, [id number] was advanced to the RV apex, low ventricular septum and screwed in place. Through the second sheath, a Medtronic atrial pacing lead [id number] was advanced to the atrial appendage and screwed in place. Thresholds: Atrium 0.4 milliseconds, 0.625 V, 342 ohms, 2 mV. Ventricle 0.4 millisecond, 0.5 V, 798 ohms, 12.2 mV. No extracardiac stimulation with 10 V cardiac pacing stimulus in either chambers. The leads were secured to subcutaneous tissues using 0 Ethibond, connected to a pacemaker generator from [employer] [id number] noted to be pacing and sensing appropriately. [...] pouch. 3. Venogram. Job ID/Internal Job ID: [id number] Britton Larson NP CV ELECTROPHYSIOLOGY PROCS F inal Result * POCT glucose (10/13/2024 12:45 PM FOOD PROCESSING SCIENTIST) [facility] Signature Glucose, POC 120 70 - 199 mg/dL Blood 10/13/2024 12:4 5 PM FOOD PROCESSING SCIENTIST 10/13/2024 12:45 PM FOOD PROCESSING SCIENTIST Guillermo Mayes MD LAB POCT ORDERABLES - DEVICE Final Result Performing Organization Address City/State/[facility] Co dc Phone Number [facility] [address] [address] Department [place] [address] * ECG 12 lead (10/13/2024 11:59 AM FOOD PROCESSING SCIENTIST) 10/13/2024 11:5 9 AM FOOD PROCESSING SCIENTIST Narrative [facility] - 10/13/2024 3:23 PM FOOD PROCESSING SCIENTIST Vent Rate: 113 bpm RR Interval: 527 msec CO Interval: 160 msec QRS Duration: 134 msec QT Interval: 351 msec QTC Interval: 418 msec P-R-T Magnolia: 68 - -11 - 69 degrees IMPRESSION: SINUS TACHYCARDIA INTRAVENTRICULAR CONDUCTION DELAY [130+ ms QRS DURATION] ABNORMAL ECG NO CHANGE FROM PREVIOUS TRACING NOTED Electronically Signed By: Jeffrey Li MD Carmen Peñaloza ELECTRIC FORK OPERATOR ECG ORDERABLES Final Result Performing Organization Address [facility] de Phone Number [facility] Macrotherapy [facility] * ECG 12 lead (10/13/2024 9:36 AM FOOD PROCESSING SCIENTIST) 10/13/2024 9:36 AM FOOD PROCESSING SCIENTIST Narrative [facility] - 10/13/2024 11:18 AM FOOD PROCESSING SCIENTIST Vent Rate: 107 bpm RR Interval: 557 msec CO Interval: 109 msec QRS Duration: 141 msec QT Interval: 445 msec QTC Interval: 508 msec P-R-T Magnolia: -9 - 99 - 111 degrees IMPRESSION: ELECTRONIC ATRIAL PACEMAKER BORDERLINE RIGHT AXIS DEVIATION [QRS AXIS > 90] INTRAVENTRICULAR CONDUCTION DELAY [130+ ms QRS DURATION] INFERIOR MYOCARDIAL INFARCTION , POSSIBLY ACUTE [40+ ms Q WAVE AND/OR ST/T ABNORMALITY IN II/aVF] MARKED ST ELEVATION, CONSIDER ANTEROSEPTAL INJURY [MARKED ST ELEVATION W/O NORMALLY INFLECTED T-WAVE IN V1-V4] ACUTE HI PACER ACTIVITY NEW ST ELEVATIONS MORE MARKED Electronically Signed By: Kacy Knox MD us Migdalia Salcedo ELECTRIC FORK OPERATOR ECG ORDERABLES Final Resu lt Performing Organization Address [facility] Phone Number [facility] Macrotherapy [facility] * POCT glucose (10/13/2024 7:56 AM FOOD PROCESSING SCIENTIST) Glucose, POC 114 70 - 199 mg/dL Blood 10/13/2024 7:56 AM FOOD PROCESSING SCIENTIST 10/13/2024 7:56 AM FOOD PROCESSING SCIENTIST us Guillermo Mayes MD LAB POCT ORDERABLES - DEVICE Final Result Performing Organization Address [facility] Co dc Phone Number NICOLE [address] [address] [place] [address] * XR Chest 1 View - Portable - in AM (10/13/2024 6:24 AM FOOD PROCESSING SCIENTIST) Anatomical Region Laterality Modality Body, Chest N/A Computed Radiogr aphy 10/13/2024 8:40 AM FOOD PROCESSING SCIENTIST Impressions 10/13/2024 8:40 AM FOOD PROCESSING SCIENTIST No failure. Electronically signed by: Elena Bower M.D. Narrative 10/13/2024 8:40 AM FOOD PROCESSING SCIENTIST EXAMINATION: XR CHEST 1 VIEW HISTORY: The patient is an 79-year-old male who has had cardiac surgery. Comparison is made with the previous study dated 10/12/2024. TECHNIQUE: AP portable view of the chest. FINDINGS: Borderline cardiomegaly with aortic atherosclerosis. No failure. Subsegmental atelectasis is seen in the left upper lobe with the remaining lungs being clear. The distal tip of a retracted Brookville-Fausto catheter is in the superior vena cava. [...] clear. The distal tip of a retracted [place]-Fausto catheter is in the superior vena cava. IMPRESSION: No failure. Electronically signed by: Elena Bower M.D. Guillermo Mayes MD IMG XR PROCEDURES Final Resu lt * eGFR (10/13/2024 5:50 AM FOOD PROCESSING SCIENTIST) eGFR 61 >=60 mL/min/1. 73 m2 Comment: [...] reviewed 2021. Blood 10/13/2024 5:5 0 AM FOOD PROCESSING SCIENTIST 10/13/2024 5:50 AM FOOD PROCESSING SCIENTIST Yvette Russell ELECTRIC FORK OPERATOR LAB BLOOD ORDERABLES Fin al Result NICOLE RAYGOZA [address] [address] Department [place] [employer] [place] [address] * aPTT (10/13/2024 5:50 AM FOOD PROCESSING SCIENTIST) aPTT 28 28 - 38 sec Comment: Interpretive Data Heparin therapeutic range: 66.0 - 100.0 seconds. Range based on correlation with therapeutic heparin activity range of 0.3 - 0.7 Units/mL. Current interpretive data was last revised on 2023. Blood 10/13/2024 5:50 AM FOOD PROCESSING SCIENTIST 10/13/2024 5:50 AM FOOD PROCESSING SCIENTIST Migdalia Salcedo ELECTRIC FORK OPERATOR LAB BLOOD ORDERABLES Final Result NICOLE RAYGOZA [address] [address] Department [place] [address] * Protime-INR (10/13/2024 5:50 AM FOOD PROCESSING SCIENTIST) PT 12.1 9.7 - 13.0 sec INR 1.12 0.90 - 1.20 NICOLE RAYGOZA Comment: Interpretive data Oral anticoagulant therapeutic ranges: Venous thromboembolism prophylaxis or treatment: 2.0-3.0 CARDIOLOGY Standard range: 2.0-3.0 High-intensity range: 2.5-3.5 Refer to indication-specific guidelines for appropriate target ranges for prosthetic heart valve replacement. Current interpretive data was last revised on 2019. Blood 10/13/2024 5:50 AM FOOD PROCESSING SCIENTIST 10/13/2024 5:50 AM FOOD PROCESSING SCIENTIST us Migdalia Salcedo NP LAB BLOOD ORDERABLES Final Result Performing Organization Address City/[facility]/ZIP Co de Phone Number NICOLE RAYGOZA [address] [address] [employer] [place], [place] [phone] * (ABNORMAL) CBC without differential (10/13/2024 5:50 AM FOOD PROCESSING SCIENTIST) WBC 8.6 3.8 - 9.9 K/cumm Hgb 8.1(L) 13.0 - 17.5 g/dL [facility] Hct 24.7(L) 38.9 - 50.3 % [facility] Plt 135(L) 150 - 400 K/cumm [facility] MPV 12.0 9.1 - 12.3 fL [facility] RBC 2.68(L) 4.30 - 5.80 M/cumm [facility] MCV 92.2 81.3 - 96.4 fL [facility] MCH 30.2 27.1 - 33.3 pg [facility] MCHC 32.8 32.3 - 35.7 g/dL [facility] RDW CV 14.4 11.1 - 14.9 % [facility] RDW SD 48.3(H) 35.7 - 48.1 fL [facility] NRBC abs 0.00 0.00 - 0.01 K/cumm [facility] Blood 10/13/2024 5:50 AM FOOD PROCESSING SCIENTIST 10/13/2024 5:50 AM FOOD PROCESSING SCIENTIST us Guillermo Mayes MD LAB BLOOD ORDERABLES Final R esult NICOLE RAYGOZA [address] Department of [employer] [place], [place] [id number] * Magnesium (10/13/2024 5:50 AM FOOD PROCESSING SCIENTIST) Magnesium 2.2 1.4 - 2.5 mg/dL Blood 10/13/2024 5:50 AM FOOD PROCESSING SCIENTIST 10/13/2024 5:50 AM FOOD PROCESSING SCIENTIST Yvette Russell NP LAB BLOOD ORDERABLES Fin al Result NICOLE RAYGOZA [address] [address] Department [place] [address] * (ABNORMAL) Basic metabolic panel (10/13/2024 5:50 AM FOOD PROCESSING SCIENTIST) Sodium 140 135 - 145 mmol/L Potassium, pl 3.6 3.3 - 4.9 mmol/L [facility] Chloride 105 97 - 110 mmol/L [facility] CO2 23 22 - 32 mmol/L [facility] CH Anion gap 12 2 - 15 mmol/L [facility] BUN 37(H) 6 - 25 mg/dL [facility] Creatinine 1.20 0.80 - 1.30 mg/dL [facility] Glucose 136 70 - 199 mg/dL [facility] Comment: Interpretive Data Fasting glucose >/= [...] 2022. Calcium 9.1 8.5 - 10.3 mg/dL [facility] Blood 10/13/2024 5:50 AM FOOD PROCESSING SCIENTIST 10/13/2024 5:50 AM FOOD PROCESSING SCIENTIST us Guillermo Mayes MD LAB BLOOD ORDERABLES Final R esult NICOLE RAYGOZA [address] [address] [place] [address] * POCT glucose (10/12/2024 9:59 PM FOOD PROCESSING SCIENTIST) Glucose, POC 125 70 - 199 mg/dL Blood 10/12/2024 9:59 PM FOOD PROCESSING SCIENTIST 10/12/2024 9:59 PM FOOD PROCESSING SCIENTIST us Guillermo Mayes MD LAB POCT ORDERABLES - DEVICE Final Result Performing Organization Address [facility] de Phone Number NICOLE [address] [address] [facility] [employer] [place] [address] * POCT glucose (10/12/2024 9:27 PM FOOD PROCESSING SCIENTIST) Glucose, POC 137 70 - 199 mg/dL Blood 10/12/2024 9:27 PM FOOD PROCESSING SCIENTIST 10/12/2024 9:27 PM FOOD PROCESSING SCIENTIST us Guillermo Mayes MD LAB POCT ORDERABLES - DEVICE Final Result Performing Organization Address [facility] de Phone Number LORINACE [address] [address] [facility] [employer] [place] [address] * POCT glucose (10/12/2024 5:44 PM FOOD PROCESSING SCIENTIST) Glucose, POC 115 70 - 199 mg/dL Blood 10/12/2024 5:44 PM FOOD PROCESSING SCIENTIST 10/12/2024 5:44 PM FOOD PROCESSING SCIENTIST Guillermo Mayes MD LAB POCT ORDERABLES - DEVICE Final Result Performing Organization Address [facility] de Phone Number NICOLE [address] [address] [facility] [place] [employer] [place] [address] * POCT glucose (10/12/2024 1:00 PM FOOD PROCESSING SCIENTIST) Glucose, POC 140 70 - 199 mg/dL Blood 10/12/2024 1:00 PM FOOD PROCESSING SCIENTIST 10/12/2024 1:00 PM FOOD PROCESSING SCIENTIST us Guillermo Mayes MD LAB POCT ORDERABLES - DEVICE Final Result Performing Organization Address [facility] [place] [address] [address] Department [place] [address] * POCT glucose (10/12/2024 7:53 AM FOOD PROCESSING SCIENTIST) Glucose, POC 131 70 - 199 mg/dL Blood 10/12/2024 7:53 AM FOOD PROCESSING SCIENTIST 10/12/2024 7:53 AM FOOD PROCESSING SCIENTIST Guillermo Mayes MD LAB POCT ORDERABLES - DEVICE Final Result Performing Organization Address [facility] Co de Phone Number NICOLE RAYGOZA [address] [address] [place] [address] * XR Chest 1 View - Portable - in AM (10/12/2024 6:11 AM FOOD PROCESSING SCIENTIST) Anatomical Region Laterality Modality Body, Chest N/A Computed Radiogr aphy 10/12/2024 8:39 AM FOOD PROCESSING SCIENTIST Impressions 10/12/2024 8:39 AM FOOD PROCESSING SCIENTIST Cardiomegaly with no failure. Electronically signed by: Elena Bower M.D. Narrative 10/12/2024 8:39 AM FOOD PROCESSING SCIENTIST EXAMINATION: XR CHEST 1 VIEW HISTORY: The [...] pneumothorax. The distal tip of the retracted Brook[place]-Fausto catheter is in the superior vena cava. [...] pneumothorax. The distal tip of the retracted [place]-Fausto catheter is in the superior vena cava. IMPRESSION: Cardiomegaly with no failure. Electronically signed by: Elena Bower M.D. us Guillermo Mayes MD IMG XR PROCEDURES Final Resu lt * eGFR (10/12/2024 4:30 AM FOOD PROCESSING SCIENTIST) eGFR 62 >=60 mL/min/1. 73 m2 Comment: [...] last reviewed 2021. Blood 10/12/2024 4:30 AM FOOD PROCESSING SCIENTIST 10/12/2024 5:11 AM FOOD PROCESSING SCIENTIST us Yvette Russell ELECTRIC FORK OPERATOR LAB BLOOD ORDERABLES Fin al Result NICOLE RAYGOAZ [address] [place] [address] * (ABNORMAL) CBC without differential (10/12/2024 4:30 AM FOOD PROCESSING SCIENTIST) WBC 9.7 3.8 - 9.9 K/cumm Hgb [...] K/cumm [facility] Blood 10/12/2024 4:30 AM FOOD PROCESSING SCIENTIST 10/12/2024 5:08 AM FOOD PROCESSING SCIENTIST Guillermo Mayes MD LAB BLOOD ORDERABLES Final R esult Performing Organization Address [facility] Co de Phone Number [facility] [address] Department [employer] [place], [place] [id number] * Magnesium (10/12/2024 4:30 AM FOOD PROCESSING SCIENTIST) [facility] Magnesium 2.2 1.4 - 2.5 mg/dL Blood 10/12/2024 4:30 AM FOOD PROCESSING SCIENTIST 10/12/2024 5:11 AM FOOD PROCESSING SCIENTIST Yvette Russell NP LAB BLOOD ORDERABLES Fin al Result Performing Organization Address [facility] Co de Phone Number [facility] [address] Department [place] [employer] [place] [address] * (ABNORMAL) Basic metabolic panel (10/12/2024 4:30 AM FOOD PROCESSING SCIENTIST) Pathologist [facility] Sodium 141 135 - 145 mmol/L Potassium, pl 4.1 3.3 - 4.9 mmol/L CERNER Chloride 106 97 - 110 mmol/L [facility] CO2 22 22 - 32 mmol/L [facility] Anion gap 13 2 - 15 mmol/L [facility] BUN 30(H) 6 - 25 mg/dL [facility] Creatinine 1.19 0.80 - 1.30 mg/dL [facility] Glucose 122 70 - 199 mg/dL [facility] Comment: Interpretive Data Fasting glucose >/= [...] 2022. Calcium 8.9 8.5 - 10.3 mg/dL [facility] Blood 10/12/2024 4:30 AM FOOD PROCESSING SCIENTIST 10/12/2024 5:11 AM FOOD PROCESSING SCIENTIST Guillermo Mayes MD LAB BLOOD ORDERABLES Final R esult Performing Organization Address City/[facility] Co de Phone Number [facility] [address] [employer] [place] [address] * POCT glucose (10/11/2024 8:46 PM FOOD PROCESSING SCIENTIST) Glucose, POC 149 70 - 199 mg/dL Blood 10/11/2024 8:46 PM FOOD PROCESSING SCIENTIST 10/11/2024 8:46 PM FOOD PROCESSING SCIENTIST Guillermo Mayes MD LAB POCT ORDERABLES - DEVICE Final Result Performing Organization Address City/[facility]/ZIP Co de Phone Number [facility] [address] [facility] [place] [address] * POCT glucose (10/11/2024 5:13 PM FOOD PROCESSING SCIENTIST) Glucose, POC 194 70 - 199 mg/dL Blood 10/11/2024 5:13 PM FOOD PROCESSING SCIENTIST 10/11/2024 5:13 PM FOOD PROCESSING SCIENTIST Guillermo Mayes MD LAB POCT ORDERABLES - DEVICE Final Result Performing Organization Address [facility] Phone Number NICOLE [address] [place] [address] * POCT glucose (10/11/2024 12:12 PM FOOD PROCESSING SCIENTIST) Glucose, POC 160 70 - 199 mg/dL Blood 10/11/2024 12:1 2 PM FOOD PROCESSING SCIENTIST 10/11/2024 12:12 PM FOOD PROCESSING SCIENTIST Guillermo Mayes MD LAB POCT ORDERABLES - DEVICE Final Result Performing Organization Address [facility] Phone Number NICOLE [address] [place] [address] * POCT glucose (10/11/2024 8:24 AM FOOD PROCESSING SCIENTIST) Glucose, POC 144 70 - 199 mg/dL Blood 10/11/2024 8:24 AM FOOD PROCESSING SCIENTIST 10/11/2024 8:24 AM FOOD PROCESSING SCIENTIST Guillermo Mayes MD LAB POCT ORDERABLES - DEVICE Final Result Performing Organization Address [facility] Phone Number NICOLE [address] [place] [address] * Critical Care (10/11/2024 6:32 AM FOOD PROCESSING SCIENTIST) Narrative Case Guerrero MD - 10/11/2024 6:32 AM FOOD PROCESSING SCIENTIST Case Guerrero MD 10/11/2024 1:49 PM Critical [...] plan with the ICU team and other medical/employment consultant staff, making frequent assessments and decisions [...] in the medical record us Yvette Russell ELECTRIC FORK OPERATOR IN CLINIC/BEDSIDE ORDERA BLES Final Result * XR Chest 1 View - Portable - in AM (10/11/2024 5:59 AM FOOD PROCESSING SCIENTIST) Anatomical Region Laterality Modality Body, Chest N/A Computed Radiogr aphy 10/11/2024 9:45 AM FOOD PROCESSING SCIENTIST Impressions 10/11/2024 9:45 AM FOOD PROCESSING SCIENTIST FINDINGS/IMPRESSION: No pneumothorax or pleural effusion. Bilateral thoracostomy tubes. Poststernotomy changes. Pulmonary arterial catheter is appropriately positioned. Mediastinal drain is appropriately positioned. No consolidation. Electronically signed by: Jj Grubbs II, D.O. Narrative 10/11/2024 9:45 AM FOOD PROCESSING SCIENTIST EXAMINATION: XR CHEST 1 VIEW DATE: 10/11/2024 [...] * Oxyhemoglobin, pulmonary artery (10/11/2024 5:30 AM FOOD PROCESSING SCIENTIST) Oxyhemoglobin, PA 71.3 % Comment: Interpretive Data No reference range established. Current interpretive data was last revised 2019. Blood 10/11/2024 5:30 AM FOOD PROCESSING SCIENTIST 10/11/2024 5:35 AM FOOD PROCESSING SCIENTIST Yvette Russell ELECTRIC FORK OPERATOR LAB BLOOD ORDERABLES Fin al Result Performing Organization Address [facility] Co de Phone Number NICOLE RAYGOZA [address] Department [employer] [place], [place] [id number] * (ABNORMAL) Calcium, ionized, whole blood (10/11/2024 5:22 AM FOOD PROCESSING SCIENTIST) Ca, ionized, bld 4.49(L) 4.50 - 5.10 mg/dL Blood 10/11/2024 5:22 AM FOOD PROCESSING SCIENTIST 10/11/2024 5:50 AM FOOD PROCESSING SCIENTIST Yvette Russell ELECTRIC FORK OPERATOR LAB BLOOD ORDERABLES Fin al Result Performing Organization Address [facility] de Phone Number NICOLE RAYGOZA [address] Department [employer] [place], [place] [id number] * (ABNORMAL) eGFR (10/11/2024 5:22 AM FOOD PROCESSING SCIENTIST) eGFR 58(L) >=60 mL/min/1. 73 m2 Comment: [...] last reviewed 2021. Blood 10/11/2024 5:22 AM FOOD PROCESSING SCIENTIST 10/11/2024 5:50 AM FOOD PROCESSING SCIENTIST Guillermo Mayes MD LAB BLOOD ORDERABLES Final R esult Performing Organization Address City/[facility]/ZIP Co de Phone Number NICOLE RAYGOZA [address] [employer] [place] [address] * (ABNORMAL) CBC without differential (10/11/2024 5:22 AM FOOD PROCESSING SCIENTIST) WBC 7.2 3.8 - 9.9 K/cumm Hgb [...] K/cumm [facility] Blood 10/11/2024 5:22 AM FOOD PROCESSING SCIENTIST 10/11/2024 5:31 AM FOOD PROCESSING SCIENTIST Guillermo Mayes MD LAB BLOOD ORDERABLES Final R esult Performing Organization Address City/[facility]/ZIP Co de Phone Number NICOLE RAYGOZA [address] [place] [place] [address] * Phosphorus (10/11/2024 5:22 AM FOOD PROCESSING SCIENTIST) Pathologist [facility] Phosphorus, pl 3.3 2.3 - 4.5 mg/dL Blood 10/11/2024 5:22 AM FOOD PROCESSING SCIENTIST 10/11/2024 5:31 AM FOOD PROCESSING SCIENTIST Yvette Russell ELECTRIC FORK OPERATOR LAB BLOOD ORDERABLES Fin al Result Performing Organization Address [facility] de Phone Number [facility] [address] Department [employer] [place] [address] * Magnesium (10/11/2024 5:22 AM FOOD PROCESSING SCIENTIST) Pathologist [facility] Magnesium 2.2 1.4 - 2.5 mg/dL Blood 10/11/2024 5:22 AM FOOD PROCESSING SCIENTIST 10/11/2024 5:31 AM FOOD PROCESSING SCIENTIST Yvette Russell ELECTRIC FORK OPERATOR LAB BLOOD ORDERABLES Fin al Result Performing Organization Address [facility] Phone Number [facility] [address] [facility] [employer] [place] [address] * Basic metabolic panel (10/11/2024 5:22 AM FOOD PROCESSING SCIENTIST) Pathologist [facility] Sodium 142 135 - 145 mmol/L Potassium, pl 3.9 3.3 - 4.9 mmol/L [facility] Chloride 107 97 - 110 mmol/L [facility] CO2 23 22 - 32 mmol/L [facility] Anion gap 12 2 - 15 mmol/L [facility] BUN 21 6 - 25 mg/dL [facility] Creatinine 1.25 0.80 - 1.30 mg/dL [facility] Glucose 135 70 - 199 mg/dL [facility] Comment: Interpretive Data Fasting glucose >/= [...] 10.3 mg/dL NICOLE Blood 10/11/2024 5:22 AM FOOD PROCESSING SCIENTIST 10/11/2024 5:31 AM FOOD PROCESSING SCIENTIST Guillermo Mayes MD LAB BLOOD ORDERABLES Final R esult Performing Organization Address City/[facility] Co de Phone Number NICOLE [address] Department [employer] [place] [address] * POCT glucose (10/11/2024 5:20 AM FOOD PROCESSING SCIENTIST) Glucose, POC 132 70 - 199 mg/dL Blood 10/11/2024 5:20 AM FOOD PROCESSING SCIENTIST 10/11/2024 5:20 AM FOOD PROCESSING SCIENTIST Guillermo Mayes MD LAB POCT ORDERABLES - DEVICE Final Result Performing Organization Address [facility] Co de Phone Number [facility] [address] [facility] [employer] [place] [address] * POCT glucose (10/11/2024 4:26 AM FOOD PROCESSING SCIENTIST) Glucose, POC 126 70 - 199 mg/dL Blood 10/11/2024 4:26 AM FOOD PROCESSING SCIENTIST 10/11/2024 4:26 AM FOOD PROCESSING SCIENTIST Guillermo Mayes MD LAB POCT ORDERABLES - DEVICE Final Result Performing Organization Address [facility] Co de Phone Number [facility] [address] [facility] [employer] [place] [address] * POCT glucose (10/11/2024 3:23 AM FOOD PROCESSING SCIENTIST) Glucose, POC 126 70 - 199 mg/dL Blood 10/11/2024 3:23 AM FOOD PROCESSING SCIENTIST 10/11/2024 3:23 AM FOOD PROCESSING SCIENTIST us Guillermo Mayes MD LAB POCT ORDERABLES - DEVICE Final Result Performing Organization Address [facility] Co de Phone Number NICOLE RAYGOZA [address] [facility] [employer] [place] [address] * POCT glucose (10/11/2024 2:26 AM FOOD PROCESSING SCIENTIST) Glucose, POC 120 70 - 199 mg/dL Blood 10/11/2024 2:26 AM FOOD PROCESSING SCIENTIST 10/11/2024 2:26 AM FOOD PROCESSING SCIENTIST Guillermo Mayes MD LAB POCT ORDERABLES - DEVICE Final Result Performing Organization Address [facility] Phone Number NICOLE [address] [address] [facility] [employer] [place] [address] * POCT glucose (10/11/2024 1:28 AM FOOD PROCESSING SCIENTIST) Glucose, POC 120 70 - 199 mg/dL Blood 10/11/2024 1:28 AM FOOD PROCESSING SCIENTIST 10/11/2024 1:28 AM FOOD PROCESSING SCIENTIST us Guillermo Mayes MD LAB POCT ORDERABLES - DEVICE Final Result Performing Organization Address [facility] Co de Phone Number NICOLE [address] [address] [facility] [employer] [place] [address] * POCT glucose (10/11/2024 12:27 AM FOOD PROCESSING SCIENTIST) Glucose, POC 124 70 - 199 mg/dL Blood 10/11/2024 12:2 7 AM FOOD PROCESSING SCIENTIST 10/11/2024 12:27 AM FOOD PROCESSING SCIENTIST us Guillermo Mayes MD LAB POCT ORDERABLES - DEVICE Final Result Performing Organization Address [facility] Co de Phone Number NICOLE [address] [address] [facility] [employer] [place] [address] * POCT glucose (10/10/2024 11:26 PM FOOD PROCESSING SCIENTIST) Glucose, POC 112 70 - 199 mg/dL Blood 10/10/2024 11:2 6 PM FOOD PROCESSING SCIENTIST 10/10/2024 11:26 PM FOOD PROCESSING SCIENTIST Guillermo Mayes MD LAB POCT ORDERABLES - DEVICE Final Result Performing Organization Address [facility] de Phone Number NICOLE [address] [address] [facility] [employer] [place] [address] * POCT glucose (10/10/2024 10:27 PM FOOD PROCESSING SCIENTIST) Glucose, POC 120 70 - 199 mg/dL Blood 10/10/2024 10:2 7 PM FOOD PROCESSING SCIENTIST 10/10/2024 10:27 PM FOOD PROCESSING SCIENTIST Guillermo Mayes MD LAB POCT ORDERABLES - DEVICE Final Result Performing Organization Address [facility] de Phone Number NICOLE [address] [address] [facility] [employer] [place] [address] * POCT glucose (10/10/2024 9:26 PM FOOD PROCESSING SCIENTIST) Glucose, POC 118 70 - 199 mg/dL Blood 10/10/2024 9:26 PM FOOD PROCESSING SCIENTIST 10/10/2024 9:26 PM FOOD PROCESSING SCIENTIST Guillermo Mayes MD LAB POCT ORDERABLES - DEVICE Final Result Performing Organization Address [facility] [place] [address] [address] [facility] [employer] [place] [address] * Critical Care (10/10/2024 7:59 PM FOOD PROCESSING SCIENTIST) Narrative Deo Biggs MD - 10/10/2024 7:59 PM FOOD PROCESSING SCIENTIST Deo Biggs MD 10/11/2024 5:48 AM Critical [...] plan with the ICU team and other medical/employment consultant staff, making frequent assessments and decisions [...] in the medical record us Tony Purdy ELECTRIC FORK OPERATOR IN CLINIC/BEDSIDE ORDER TEVIN Final Result * POCT glucose (10/10/2024 7:12 PM FOOD PROCESSING SCIENTIST) Glucose, POC 102 70 - 199 mg/dL Blood 10/10/2024 7:12 PM FOOD PROCESSING SCIENTIST 10/10/2024 7:12 PM FOOD PROCESSING SCIENTIST us Guillermo Mayes MD LAB POCT ORDERABLES - DEVICE Final Result Performing Organization Address [facility] [place] [address] [address] [place] [address] * POCT glucose (10/10/2024 6:06 PM FOOD PROCESSING SCIENTIST) Glucose, POC 128 70 - 199 mg/dL Blood 10/10/2024 6:06 PM FOOD PROCESSING SCIENTIST 10/10/2024 6:06 PM FOOD PROCESSING SCIENTIST Guillermo Mayes MD LAB POCT ORDERABLES - DEVICE Final Result Performing Organization Address [facility] Co de Phone Number NICOLE RAYGOZA [address] Department [place] [employer] [place] [address] * POCT glucose (10/10/2024 5:02 PM FOOD PROCESSING SCIENTIST) Glucose, POC 127 70 - 199 mg/dL Blood 10/10/2024 5:02 PM FOOD PROCESSING SCIENTIST 10/10/2024 5:02 PM FOOD PROCESSING SCIENTIST Guillermo Mayes MD LAB POCT ORDERABLES - DEVICE Final Result Performing Organization Address City/[facility] Co de Phone Number NICOLE [address] [address] [facility] [employer] [place] [address] * POCT glucose (10/10/2024 4:06 PM FOOD PROCESSING SCIENTIST) Glucose, POC 125 70 - 199 mg/dL Blood 10/10/2024 4:06 PM FOOD PROCESSING SCIENTIST 10/10/2024 4:06 PM FOOD PROCESSING SCIENTIST Guillermo Mayes MD LAB POCT ORDERABLES - DEVICE Final Result Performing Organization Address [facility] Co de Phone Number LORINACE [address] [address] [facility] [employer] [place] [address] * POCT glucose (10/10/2024 3:02 PM FOOD PROCESSING SCIENTIST) Glucose, POC 116 70 - 199 mg/dL Blood 10/10/2024 3:02 PM FOOD PROCESSING SCIENTIST 10/10/2024 3:02 PM FOOD PROCESSING SCIENTIST Guillermo Mayes MD LAB POCT ORDERABLES - DEVICE Final Result Performing Organization Address City/[facility] Co de Phone Number [facility] [address] [address] [facility] [employer] [place] [address] * POCT glucose (10/10/2024 1:58 PM FOOD PROCESSING SCIENTIST) Glucose, POC 129 70 - 199 mg/dL Blood 10/10/2024 1:58 PM FOOD PROCESSING SCIENTIST 10/10/2024 1:58 PM FOOD PROCESSING SCIENTIST Result Abbi Mayes MD LAB POCT ORDERABLES - DEVICE Final Result NICOLE RAYGOZA [address] [facility] [employer] [place], [place] [id number] * Calcium, ionized, whole blood (10/10/2024 1:54 PM FOOD PROCESSING SCIENTIST) Ca, ionized, bld 4.54 4.50 - 5.10 mg/dL Blood 10/10/2024 1:54 PM FOOD PROCESSING SCIENTIST 10/10/2024 2:04 PM FOOD PROCESSING SCIENTIST Result Abbi Mayes MD LAB BLOOD ORDERABLES Final R esult Performing Organization Address [facility] Co de Phone Number NICOLE RAYGOZA [address] Department [place] [employer] [place] [address] * eGFR (10/10/2024 1:54 PM FOOD PROCESSING SCIENTIST) eGFR 62 >=60 mL/min/1. 73 m2 Comment: [...] last reviewed 2021. Blood 10/10/2024 1:54 PM FOOD PROCESSING SCIENTIST 10/10/2024 2:04 PM FOOD PROCESSING SCIENTIST us Guillermo Mayes MD LAB BLOOD ORDERABLES Final R esult [facility] [address] [place] [address] * (ABNORMAL) Differential, auto (10/10/2024 1:54 PM FOOD PROCESSING SCIENTIST) Neutrophil abs 5.9 1.5 - 6.5 K/cumm Imm gran abs 0.0 0.0 - 0.1 K/cumm [facility] Lymphocyte abs 0.4(L) 0.8 - 3.3 K/cumm [facility] Monocyte abs 0.5 0.2 - 0.8 K/cumm [facility] Eosinophil abs 0.0 0.0 - 0.5 K/cumm [facility] Basophil abs 0.0 0.0 - 0.1 K/cumm [facility] Neutrophil pct 86.5 % [facility] Comment: Interpretive Data Percent cell count reference ranges are not reported, since discordance with absolute values may lead to misinterpretation of CBC data. Current Interpretive Data was last revised on 2017. Imm gran pct 0.6 % [facility] Comment: Interpretive Data Percent cell count reference ranges are not reported, since discordance with absolute values may lead to misinterpretation of CBC data. Current Interpretive Data was last revised on 2017. Lymphocyte pct 5.6 % [facility] Comment: Interpretive Data Percent cell count reference ranges are not reported, since discordance with absolute values may lead to misinterpretation of CBC data. Current Interpretive Data was last revised on 2017. Monocyte pct 7.0 % [facility] Comment: Interpretive Data Percent cell count reference ranges are not reported, since discordance with absolute values may lead to misinterpretation of CBC data. Current Interpretive Data was last revised on 2017. Eosinophil pct 0.0 % [facility] Comment: Interpretive Data Percent cell count reference ranges are not reported, since discordance with absolute values may lead to misinterpretation of CBC data. Current Interpretive Data was last revised on 2017. Basophil pct 0.3 % [facility] Comment: Interpretive Data Percent cell count reference ranges are not reported, since discordance with absolute values may lead to misinterpretation of CBC data. Current Interpretive Data was last revised on 2017. Blood 10/10/2024 1:54 PM FOOD PROCESSING SCIENTIST 10/10/2024 2:04 PM FOOD PROCESSING SCIENTIST Guillermo Mayes MD LAB BLOOD ORDERABLES Final R esult Performing Organization Address City/[facility] Co de Phone Number NICOLE RAYGOZA [address] [address] [place] [address] * (ABNORMAL) CBC with auto differential (10/10/2024 1:54 PM FOOD PROCESSING SCIENTIST) WBC 6.8 3.8 - 9.9 K/cumm Hgb 8.9(L) 13.0 - 17.5 g/dL [facility] Hct 26.4(L) 38.9 - 50.3 % [facility] Plt 106(L) 150 - 400 K/cumm [facility] MPV 10.9 9.1 - 12.3 fL [facility] RBC 2.99(L) 4.30 - 5.80 M/cumm [facility] MCV 88.3 81.3 - 96.4 fL [facility] MCH 29.8 27.1 - 33.3 pg [facility] MCHC 33.7 32.3 - 35.7 g/dL [facility] RDW CV 13.8 11.1 - 14.9 % [facility] RDW SD 44.2 35.7 - 48.1 fL [facility] NRBC abs 0.00 0.00 - 0.01 K/cumm [facility] Blood 10/10/2024 1:54 PM FOOD PROCESSING SCIENTIST 10/10/2024 2:04 PM FOOD PROCESSING SCIENTIST Guillermo Mayes MD LAB BLOOD ORDERABLES Final R esult Performing Organization Address City/[facility]/ZIP Co de Phone Number NICOLE RAYGOZA [address] [address] [place] [address] * Magnesium (10/10/2024 1:54 PM FOOD PROCESSING SCIENTIST) Magnesium 2.2 1.4 - 2.5 mg/dL Blood 10/10/2024 1:54 PM FOOD PROCESSING SCIENTIST 10/10/2024 2:04 PM FOOD PROCESSING SCIENTIST us Guillermo Mayes MD LAB BLOOD ORDERABLES Final R esult NICOLE RAYGOZA [address] [address] [place] [address] * (ABNORMAL) Basic metabolic panel (10/10/2024 1:54 PM FOOD PROCESSING SCIENTIST) Pathologist [facility] Sodium 142 135 - 145 mmol/L Potassium, pl 3.9 3.3 - 4.9 mmol/L [facility] Chloride 108 97 - 110 mmol/L [facility] CO2 21(L) 22 - 32 mmol/L [facility] Anion gap 13 2 - 15 mmol/L [facility] BUN 17 6 - 25 mg/dL [facility] Creatinine 1.19 0.80 - 1.30 mg/dL [facility] Glucose 123 70 - 199 mg/dL [facility] Comment: Interpretive Data Fasting glucose >/= [...] 2022. Calcium 8.4(L) 8.5 - 10.3 mg/dL [facility] Blood 10/10/2024 1:54 PM FOOD PROCESSING SCIENTIST 10/10/2024 2:04 PM FOOD PROCESSING SCIENTIST us Guillermo Mayes MD LAB BLOOD ORDERABLES Final R esult NICOLE RAYGOZA [address] [address] [place] [address] * POCT glucose (10/10/2024 12:58 PM FOOD PROCESSING SCIENTIST) Glucose, POC 141 70 - 199 mg/dL Blood 10/10/2024 12:5 8 PM FOOD PROCESSING SCIENTIST 10/10/2024 12:58 PM FOOD PROCESSING SCIENTIST us Guillermo Mayes MD LAB POCT ORDERABLES - DEVICE Final Result Performing Organization Address [facility] Co de Phone Number NICOLE RAYGOZA [address] [address] Department [employer] [place], [place] [id number] * Urinalysis reflex to microscopic (10/10/2024 12:27 PM FOOD PROCESSING SCIENTIST) Color, ur Straw Yellow Clarity, ur Clear [...] tendency for uric acid stone formation. Source: [facility] [employer] Current Interpretive Data was last revised on [...] [facility] Urine 10/10/2024 12:2 7 PM FOOD PROCESSING SCIENTIST 10/10/2024 12:35 PM FOOD PROCESSING SCIENTIST us Yvette Russell NP LAB URINE ORDERABLES Fin al Result Performing Organization Address [facility]/ZIP Co de Phone Number NICOLE RAYGOZA [address] [address] Department [place] [employer] [place] [address] * POCT glucose (10/10/2024 11:53 AM FOOD PROCESSING SCIENTIST) Glucose, POC 151 70 - 199 mg/dL Blood 10/10/2024 11:5 3 AM FOOD PROCESSING SCIENTIST 10/10/2024 11:53 AM FOOD PROCESSING SCIENTIST us Guillermo Mayes MD LAB POCT ORDERABLES - DEVICE Final Result Performing Organization Address [facility] de Phone Number NICOLE RAYGOZA [address] [address] [facility] [place] [place] [address] * POCT glucose (10/10/2024 10:48 AM FOOD PROCESSING SCIENTIST) Glucose, POC 150 70 - 199 mg/dL Blood 10/10/2024 10:4 8 AM FOOD PROCESSING SCIENTIST 10/10/2024 10:48 AM FOOD PROCESSING SCIENTIST us Guillermo Mayes MD LAB POCT ORDERABLES - DEVICE Final Result Performing Organization Address [facility] de Phone Number LORINACE [address] Jose Manuel [facility] [employer] [place] [address] * POCT glucose (10/10/2024 9:48 AM FOOD PROCESSING SCIENTIST) Glucose, POC 169 70 - 199 mg/dL Blood 10/10/2024 9:48 AM FOOD PROCESSING SCIENTIST 10/10/2024 9:48 AM FOOD PROCESSING SCIENTIST us Guillermo Mayes MD LAB POCT ORDERABLES - DEVICE Final Result Performing Organization Address [facility] de Phone Number NICOLE [address] Jose Manuel [facility] [employer] [place] [address] * (ABNORMAL) POCT glucose (10/10/2024 8:16 AM FOOD PROCESSING SCIENTIST) Glucose, POC 200(H) 70 - 199 mg/dL Blood 10/10/2024 8:16 AM FOOD PROCESSING SCIENTIST 10/10/2024 8:16 AM FOOD PROCESSING SCIENTIST us Guillermo Mayes MD LAB POCT ORDERABLES - DEVICE Final Result Performing Organization Address [facility] Co de Phone Number NICOLE RYAGOZA [address] [place] [address] * ECG 12 lead (10/10/2024 7:57 AM FOOD PROCESSING SCIENTIST) 10/10/2024 7:57 AM FOOD PROCESSING SCIENTIST Narrative [facility] - 10/10/2024 11:11 AM FOOD PROCESSING SCIENTIST Vent Rate: 97 bpm RR Interval: 613 msec CO Interval: 122 msec QRS Duration: 142 msec QT Interval: 390 msec QTC Interval: 445 msec P-R-T [place]: 30 - -17 - 61 degrees IMPRESSION: SINUS RHYTHM RIGHT BUNDLE BRANCH BLOCK [120+ ms QRS DURATION, UPRIGHT V1, 40+ ms S IN I/aVL/V4/V5/V6] ABNORMAL ECG Electronically Signed By: Kacy Knox MD us Fatou Schwartz MD ECG ORDERABLES Final Result Performing Organization Address [facility] Phone Number [facility] [employer] [facility] * (ABNORMAL) Blood gas, arterial (10/10/2024 6:52 AM FOOD PROCESSING SCIENTIST) pH, Art 7.44 7.35 - 7.45 PCO2, [...] % [facility] Blood 10/10/2024 6:52 AM FOOD PROCESSING SCIENTIST 10/10/2024 6:55 AM FOOD PROCESSING SCIENTIST us Guillermo Mayes MD LAB BLOOD ORDERABLES Final R esult Performing Organization Address [facility] Co de Phone Number NICOLE RAYGOZA [address] [address] Department [place] [address] * Critical Care (10/10/2024 6:41 AM FOOD PROCESSING SCIENTIST) Narrative Case Guerrero MD - 10/10/2024 6:41 AM FOOD PROCESSING SCIENTIST Case Guerrero MD 10/10/2024 4:43 PM Critical [...] plan with the ICU team and other medical/employment consultant staff, making frequent assessments and decisions [...] of the following conditions: us Yvette Russell ELECTRIC FORK OPERATOR IN CLINIC/BEDSIDE ORDERA BLES Final Result * POCT glucose (10/10/2024 6:10 AM FOOD PROCESSING SCIENTIST) Glucose, POC 167 70 - 199 mg/dL Blood 10/10/2024 6:10 AM FOOD PROCESSING SCIENTIST 10/10/2024 6:10 AM FOOD PROCESSING SCIENTIST us Guillermo Mayes MD LAB POCT ORDERABLES - DEVICE Final Result Performing Organization Address City/State/[facility] Co dc Phone [place] [facility] [place] [address] Jose Manuel Department [place] [address] * XR Chest 1 View - Portable - in AM (10/10/2024 5:55 AM FOOD PROCESSING SCIENTIST) Anatomical Region Laterality Modality Body, Chest N/A Computed Radiogr aphy 10/10/2024 9:08 AM FOOD PROCESSING SCIENTIST Impressions 10/10/2024 9:08 AM FOOD PROCESSING SCIENTIST No failure. Electronically signed by: Elena Bower M.D. Narrative 10/10/2024 9:08 AM FOOD PROCESSING SCIENTIST EXAMINATION: XR CHEST 1 VIEW HISTORY: The patient is an 79-year-old male who has had cardiac surgery. Comparison made with the previous study dated 10/09/2024. TECHNIQUE: AP portable view of the chest. FINDINGS: Unchanged satisfactory position of the endotracheal tube, bilateral thoracostomy tubes nasogastric tube and [place]-Fausto catheter. Borderline cardiomegaly with aortic atherosclerosis. No [...] tube, bilateral thoracostomy tubes nasogastric tube and [place]-Fausto catheter. Borderline cardiomegaly with aortic atherosclerosis. No failure. No active infiltrate. IMPRESSION: No failure. Electronically signed by: Elena Bower M.D. Guillermo Mayes MD IMG XR PROCEDURES Final Resu lt * POCT glucose (10/10/2024 5:15 AM FOOD PROCESSING SCIENTIST) Glucose, POC 194 70 - 199 mg/dL Blood 10/10/2024 5:15 AM FOOD PROCESSING SCIENTIST 10/10/2024 5:15 AM FOOD PROCESSING SCIENTIST Guillermo Mayes MD LAB POCT ORDERABLES - DEVICE Final Result NICOLE [address] Jose Manuel Department of Laboratories [place], [place] [id number] * Oxyhemoglobin, pulmonary artery (10/10/2024 2:34 AM FOOD PROCESSING SCIENTIST) Oxyhemoglobin, PA 58.0 % Comment: Interpretive Data No reference range established. Current interpretive data was last revised 2019. Blood 10/10/2024 2:34 AM FOOD PROCESSING SCIENTIST 10/10/2024 2:43 AM FOOD PROCESSING SCIENTIST us Guillermo Mayes MD LAB BLOOD ORDERABLES Final R esult Performing Organization Address City/[facility]/ZIP Co de Phone Number NICOLE RAYGOZA [address] [address] Department [place] [address] * eGFR (10/10/2024 2:27 AM FOOD PROCESSING SCIENTIST) eGFR 69 >=60 mL/min/1. 73 m2 Comment: [...] last reviewed 2021. Blood 10/10/2024 2:27 AM FOOD PROCESSING SCIENTIST 10/10/2024 2:27 AM FOOD PROCESSING SCIENTIST us Fatou Schwartz MD LAB BLOOD ORDERABLES Final Res ult Performing Organization Address City/[facility]/ZIP Co de Phone Number NICOLE RAYGOZA [address] Jose Manuel Department of Laboratories [place], [place] [id number] * (ABNORMAL) Differential, auto (10/10/2024 2:27 AM FOOD PROCESSING SCIENTIST) Neutrophil abs 5.8 1.5 - 6.5 K/cumm Imm gran abs 0.0 0.0 - 0.1 K/cumm [facility] Lymphocyte abs 0.3(L) 0.8 - 3.3 K/cumm [facility] Monocyte abs 0.4 0.2 - 0.8 K/cumm [facility] Eosinophil abs 0.0 0.0 - 0.5 K/cumm [facility] Basophil abs 0.0 0.0 - 0.1 K/cumm [facility] Neutrophil pct 88.1 % [facility] Comment: Interpretive Data Percent cell count reference ranges are not reported, since discordance with absolute values may lead to misinterpretation of CBC data. Current Interpretive Data was last revised on 2017. Imm gran pct 0.5 % [facility] Comment: Interpretive Data Percent cell count reference ranges are not reported, since discordance with absolute values may lead to misinterpretation of CBC data. Current Interpretive Data was last revised on 2017. Lymphocyte pct 4.2 % [facility] Comment: Interpretive Data Percent cell count reference ranges are not reported, since discordance with absolute values may lead to misinterpretation of CBC data. Current Interpretive Data was last revised on 2017. Monocyte pct 6.5 % [facility] Comment: Interpretive Data Percent cell count reference ranges are not reported, since discordance with absolute values may lead to misinterpretation of CBC data. Current Interpretive Data was last revised on 2017. Eosinophil pct 0.2 % [facility] Comment: Interpretive Data Percent cell count reference ranges are not reported, since discordance with absolute values may lead to misinterpretation of CBC data. Current Interpretive Data was last revised on 2017. Basophil pct 0.5 % [facility] Comment: Interpretive Data Percent cell count reference ranges are not reported, since discordance with absolute values may lead to misinterpretation of CBC data. Current Interpretive Data was last revised on 2017. Blood 10/10/2024 2:27 AM FOOD PROCESSING SCIENTIST 10/10/2024 2:27 AM FOOD PROCESSING SCIENTIST us Fatou Schwartz MD LAB BLOOD ORDERABLES Final Res ult NICOLE RAYGOZA [address] Jose Manuel Liu [place] [address] * Thyroid Function Twain (10/10/2024 2:27 AM FOOD PROCESSING SCIENTIST) TSH 3.02 0.30 - 4.20 mcIUnit/mL Blood 10/10/2024 2:27 AM FOOD PROCESSING SCIENTIST 10/10/2024 2:27 AM FOOD PROCESSING SCIENTIST us Yvette Russell ELECTRIC FORK OPERATOR LAB BLOOD ORDERABLES Fin al Result Performing Organization Address [facility]/ZIP Co de Phone Number NICOLE RAYGOZA [address] Jose Manuel Department [place] [employer] [place] [address] * (ABNORMAL) CBC with auto differential (10/10/2024 2:27 AM FOOD PROCESSING SCIENTIST) WBC 6.6 3.8 - 9.9 K/cumm Hgb [...] K/cumm [facility] Blood 10/10/2024 2:27 AM FOOD PROCESSING SCIENTIST 10/10/2024 2:27 AM FOOD PROCESSING SCIENTIST Fatou Schwartz MD LAB BLOOD ORDERABLES Final Res ult NICOLE RAYGOZA [address] Jose Manuel [place] [address] * (ABNORMAL) Vitamin D 25 hydroxy (10/10/2024 2:27 AM FOOD PROCESSING SCIENTIST) Vitamin D 25-OH 13(L) 30 - 80 ng/mL Blood 10/10/2024 2:27 AM FOOD PROCESSING SCIENTIST 10/10/2024 2:38 AM FOOD PROCESSING SCIENTIST Yvette Russell ELECTRIC FORK OPERATOR LAB BLOOD ORDERABLES Fin al Result Performing Organization Address [facility] Co de Phone Number NICOLE RAYGOZA [address] Jose Manuel [facility] [employer] [place] [address] * Phosphorus (10/10/2024 2:27 AM FOOD PROCESSING SCIENTIST) Phosphorus, pl 3.9 2.3 - 4.5 mg/dL Blood 10/10/2024 2:27 AM FOOD PROCESSING SCIENTIST 10/10/2024 2:27 AM FOOD PROCESSING SCIENTIST Yvette Russell ELECTRIC FORK OPERATOR LAB BLOOD ORDERABLES Fin al Result Performing Organization Address [facility] Co de Phone Number NICOLE RAYGOZA [address] Jose Manuel [facility] [employer] [place] [address] * Magnesium (10/10/2024 2:27 AM FOOD PROCESSING SCIENTIST) Magnesium 2.1 1.4 - 2.5 mg/dL Blood 10/10/2024 2:27 AM FOOD PROCESSING SCIENTIST 10/10/2024 2:27 AM FOOD PROCESSING SCIENTIST Fatou Schwartz MD LAB BLOOD ORDERABLES Final Res ult Performing Organization Address [facility] de Phone Number NICOLE RAYGOZA [address] Jose Manuel [facility] [employer] [place] [address] * (ABNORMAL) Hepatic function panel (10/10/2024 2:27 AM FOOD PROCESSING SCIENTIST) Bilirubin, total 0.5 0.1 - 1.2 mg/dL Bilirubin, direct 0.2 0.1 - 0.3 mg/dL [facility] Protein, pl 4.9(L) 6.5 - 8.5 g/dL [facility] Albumin 3.5 3.5 - 5.0 g/dL [facility] Alk phos 41 40 - 130 Units/L [facility] ALT 25 7 - 55 Units/L [facility] AST 42 10 - 50 Units/L [facility] Blood 10/10/2024 2:27 AM FOOD PROCESSING SCIENTIST 10/10/2024 2:27 AM FOOD PROCESSING SCIENTIST us Yvette Russell ELECTRIC FORK OPERATOR LAB BLOOD ORDERABLES Fin al Result NICOLE [address] Jose Manuel Department [place] [address] * (ABNORMAL) Lipid panel (10/10/2024 2:27 AM FOOD PROCESSING SCIENTIST) Cholesterol 65 30 - 199 mg/dL Comment: [...] 2 NICOLE RAYGOZA Blood 10/10/2024 2:27 AM FOOD PROCESSING SCIENTIST 10/10/2024 2:27 AM FOOD PROCESSING SCIENTIST Yvette Russell NP LAB BLOOD ORDERABLES Fin al Result NICOLE RAYGOZA [address] Jose Manuel Department [place] [address] * (ABNORMAL) Basic metabolic panel (10/10/2024 2:27 AM FOOD PROCESSING SCIENTIST) Sodium 141 135 - 145 mmol/L Potassium, pl 4.1 3.3 - 4.9 mmol/L [facility] Chloride 109 97 - 110 mmol/L [facility] CO2 20(L) 22 - 32 mmol/L [facility] Anion gap 12 2 - 15 mmol/L [facility] BUN 15 6 - 25 mg/dL [facility] Creatinine 1.09 0.80 - 1.30 mg/dL [facility] Glucose 180 70 - 199 mg/dL [facility] Comment: Interpretive Data Fasting glucose >/= [...] 2022. Calcium 8.2(L) 8.5 - 10.3 mg/dL [facility] Blood 10/10/2024 2:27 AM FOOD PROCESSING SCIENTIST 10/10/2024 2:27 AM FOOD PROCESSING SCIENTIST Fatou Schwartz MD LAB BLOOD ORDERABLES Final Res ult Performing Organization Address [facility]/ZIP Co de Phone Number NICOLE RAYGOZA [address] Jose Manuel Department [place] [address] * Calcium, ionized, whole blood (10/10/2024 2:21 AM FOOD PROCESSING SCIENTIST) Ca, ionized, bld 4.72 4.50 - 5.10 mg/dL Blood 10/10/2024 2:21 AM FOOD PROCESSING SCIENTIST 10/10/2024 2:26 AM FOOD PROCESSING SCIENTIST us Yvette Russell NP LAB BLOOD ORDERABLES Fin al Result Performing Organization Address [facility]/ZIP Co de Phone Number NICOLE RAYGOZA [address] Jose Manuel Liu [facility] [employer] [place] [address] * (ABNORMAL) Blood gas, arterial (10/10/2024 2:21 AM FOOD PROCESSING SCIENTIST) pH, Art 7.42 7.35 - 7.45 PCO2, [...] % [facility] Blood 10/10/2024 2:21 AM FOOD PROCESSING SCIENTIST 10/10/2024 2:25 AM FOOD PROCESSING SCIENTIST us Guillermo Mayes MD LAB BLOOD ORDERABLES Final R esult Performing Organization Address [facility] Co de Phone Number NICOLE RAYGOZA [address] Jose Manuel Liu [facility] [place] [employer] [place] [address] * POCT glucose (10/09/2024 11:11 PM FOOD PROCESSING SCIENTIST) Glucose, POC 142 70 - 199 mg/dL Blood 10/09/2024 11:1 1 PM FOOD PROCESSING SCIENTIST 10/09/2024 11:11 PM FOOD PROCESSING SCIENTIST Guillermo Mayes MD LAB POCT ORDERABLES - DEVICE Final Result Performing Organization Address City/[facility] Co de Phone Number NICOLE RAYGOZA [address] Jose Manuel [facility] [employer] [place] [address] * (ABNORMAL) Blood gas, arterial (10/09/2024 9:50 PM FOOD PROCESSING SCIENTIST) pH, Art 7.41 7.35 - 7.45 PCO2, [...] % [facility] Blood 10/09/2024 9:50 PM FOOD PROCESSING SCIENTIST 10/09/2024 9:52 PM FOOD PROCESSING SCIENTIST Tony Purdy NP LAB BLOOD ORDERABLES Fi nal Result NICOLE [address] Jose Manuel Liu Department [place] [address] * Critical Care (10/09/2024 8:31 PM FOOD PROCESSING SCIENTIST) Narrative Deo Biggs MD - 10/09/2024 8:31 PM FOOD PROCESSING SCIENTIST Deo Biggs MD 10/10/2024 5:32 AM Critical [...] plan with the ICU team and other medical/employment consultant staff, making frequent assessments and decisions [...] Result * Transfuse platelets (10/09/2024 8:30 PM FOOD PROCESSING SCIENTIST) Blood us Guillermo Mayes MD BLOOD TRANSFUSION ORDERABLES Final Result NICOLE RAYGOZA [address] Jose Manuel Department [place] [employer] [place] [address] * Calcium, ionized, whole blood (10/09/2024 8:23 PM FOOD PROCESSING SCIENTIST) Ca, ionized, bld 4.60 4.50 - 5.10 mg/dL Blood 10/09/2024 8:23 PM FOOD PROCESSING SCIENTIST 10/09/2024 8:25 PM FOOD PROCESSING SCIENTIST us Guillermo Mayes MD LAB BLOOD ORDERABLES Final R esult Performing Organization Address [facility] Co de Phone Number NICOLE RAYGOZA [address] Jose Manuel Department [place] [place] [address] * eGFR (10/09/2024 8:23 PM FOOD PROCESSING SCIENTIST) eGFR 78 >=60 mL/min/1. 73 m2 Comment: [...] last reviewed 2021. Blood 10/09/2024 8:23 PM FOOD PROCESSING SCIENTIST 10/09/2024 8:25 PM FOOD PROCESSING SCIENTIST us Guillermo Mayes MD LAB BLOOD ORDERABLES Final R esult NICOLE [address] [address] Department [place] [address] * (ABNORMAL) Differential, auto (10/09/2024 8:23 PM FOOD PROCESSING SCIENTIST) Neutrophil abs 5.6 1.5 - 6.5 K/cumm Imm gran abs 0.0 0.0 - 0.1 K/cumm [facility] Lymphocyte abs 0.5(L) 0.8 - 3.3 K/cumm [facility] Monocyte abs 0.4 0.2 - 0.8 K/cumm [facility] Eosinophil abs 0.0 0.0 - 0.5 K/cumm [facility] Basophil abs 0.0 0.0 - 0.1 K/cumm [facility] Neutrophil pct 85.8 % [facility] Comment: Interpretive Data Percent cell count reference ranges are not reported, since discordance with absolute values may lead to misinterpretation of CBC data. Current Interpretive Data was last revised on 2017. Imm gran pct 0.5 % [facility] Comment: Interpretive Data Percent cell count reference ranges are not reported, since discordance with absolute values may lead to misinterpretation of CBC data. Current Interpretive Data was last revised on 2017. Lymphocyte pct 7.4 % [facility] Comment: Interpretive Data Percent cell count reference ranges are not reported, since discordance with absolute values may lead to misinterpretation of CBC data. Current Interpretive Data was last revised on 2017. Monocyte pct 5.7 % [facility] Comment: Interpretive Data Percent cell count reference ranges are not reported, since discordance with absolute values may lead to misinterpretation of CBC data. Current Interpretive Data was last revised on 2017. Eosinophil pct 0.3 % [facility] Comment: Interpretive Data Percent cell count reference ranges are not reported, since discordance with absolute values may lead to misinterpretation of CBC data. Current Interpretive Data was last revised on 2017. Basophil pct 0.3 % [facility] Comment: Interpretive Data Percent cell count reference ranges are not reported, since discordance with absolute values may lead to misinterpretation of CBC data. Current Interpretive Data was last revised on 2017. Blood 10/09/2024 8:23 PM FOOD PROCESSING SCIENTIST 10/09/2024 8:26 PM FOOD PROCESSING SCIENTIST Guillermo Mayes MD LAB BLOOD ORDERABLES Final R esult Performing Organization Address City/[facility]/ZIP Co de Phone Number NICOLE [address] [place] [address] * (ABNORMAL) CBC with auto differential (10/09/2024 8:23 PM FOOD PROCESSING SCIENTIST) WBC 6.5 3.8 - 9.9 K/cumm Hgb 9.3(L) 13.0 - 17.5 g/dL [facility] Hct 26.8(L) 38.9 - 50.3 % [facility] Plt 119(L) 150 - 400 K/cumm [facility] MPV 10.5 9.1 - 12.3 fL [facility] RBC 3.06(L) 4.30 - 5.80 M/cumm [facility] MCV 87.6 81.3 - 96.4 fL [facility] MCH 30.4 27.1 - 33.3 pg [facility] MCHC 34.7 32.3 - 35.7 g/dL [facility] CH RDW CV 13.3 11.1 - 14.9 % [facility] RDW SD 42.2 35.7 - 48.1 fL [facility] NRBC abs 0.00 0.00 - 0.01 K/cumm [facility] Blood 10/09/2024 8:23 PM FOOD PROCESSING SCIENTIST 10/09/2024 8:26 PM FOOD PROCESSING SCIENTIST Guillermo Mayes MD LAB BLOOD ORDERABLES Final R esult Performing Organization Address City/[facility]/ZIP Co de Phone Number NICOLE [address] Department of [employer] [place], [place] [id number] * (ABNORMAL) Protime-INR (10/09/2024 8:23 PM FOOD PROCESSING SCIENTIST) PT 14.0(H) 9.7 - 13.0 sec INR 1.29(H) 0.90 - 1.20 NICOLE Comment: Interpretive data Oral anticoagulant therapeutic ranges: Venous thromboembolism prophylaxis or treatment: 2.0-3.0 CARDIOLOGY Standard range: 2.0-3.0 High-intensity range: 2.5-3.5 Refer to indication-specific guidelines for appropriate target ranges for prosthetic heart valve replacement. Current interpretive data was last revised on 2019. Blood 10/09/2024 8:23 PM FOOD PROCESSING SCIENTIST 10/09/2024 8:26 PM FOOD PROCESSING SCIENTIST us Guillermo Mayes MD LAB BLOOD ORDERABLES Final R esult Performing Organization Address [facility] de Phone Number [facility] [address] Jose Manuel [facility] [employer] [place] [address] * Fibrinogen (10/09/2024 8:23 PM FOOD PROCESSING SCIENTIST) Pathologist [facility] Fibrinogen 242 170 - 400 mg/dL Blood 10/09/2024 8:23 PM FOOD PROCESSING SCIENTIST 10/09/2024 8:26 PM FOOD PROCESSING SCIENTIST us Guillermo Mayes MD LAB BLOOD ORDERABLES Final R esult Performing Organization Address [facility] Phone Number [facility] [address] Jose Manuel [facility] [place] [employer] [place] [address] * Magnesium (10/09/2024 8:23 PM FOOD PROCESSING SCIENTIST) Pathologist [facility] Magnesium 2.2 1.4 - 2.5 mg/dL Blood 10/09/2024 8:23 PM FOOD PROCESSING SCIENTIST 10/09/2024 8:25 PM FOOD PROCESSING SCIENTIST us Guillermo Mayes MD LAB BLOOD ORDERABLES Final R esult Performing Organization Address [facility] de Phone Number [facility] [address] Jose Manuel [facility] [place] [employer] [place] [address] * (ABNORMAL) Blood gas, arterial (10/09/2024 8:23 PM FOOD PROCESSING SCIENTIST) pH, Art 7.48(H) 7.35 - 7.45 PCO2, [...] % [facility] Blood 10/09/2024 8:23 PM FOOD PROCESSING SCIENTIST 10/09/2024 8:25 PM FOOD PROCESSING SCIENTIST us Guillermo Mayes MD LAB BLOOD ORDERABLES Final R esult [facility] [address] Jose Manuel Liu Department [place] [address] * (ABNORMAL) Basic metabolic panel (10/09/2024 8:23 PM FOOD PROCESSING SCIENTIST) Sodium 142 135 - 145 mmol/L Potassium, [...] mg/dL NICOLE IDALMIS Blood 10/09/2024 8:23 PM FOOD PROCESSING SCIENTIST 10/09/2024 8:25 PM FOOD PROCESSING SCIENTIST Guillermo Mayes MD LAB BLOOD ORDERABLES Final R esult NICOLE [address] [facility] [place] [address] * XR Chest 1 Vw Portable (10/09/2024 8:19 PM FOOD PROCESSING SCIENTIST) Anatomical Region Laterality Modality Body, Chest N/A Computed Radiogr aphy 10/09/2024 10:3 7 PM FOOD PROCESSING SCIENTIST Impressions 10/09/2024 10:37 PM FOOD PROCESSING SCIENTIST No failure. Electronically signed by: Elena Bower M.D. Narrative 10/09/2024 10:37 PM FOOD PROCESSING SCIENTIST EXAMINATION: XR CHEST 1 VIEW HISTORY: The patient is a 79-year-old male who has had cardiac surgery. Comparison made with the study done at 4:27 PM. TECHNIQUE: AP portable view of the chest. FINDINGS: Bilateral thoracostomy tubes and mediastinal drain in place. The distal tip of the Brook[place]-Fausto catheter is in the proximal right main [...] in place. The distal tip of the [place]-Fausto catheter is in the proximal right main pulmonary artery. Endotracheal tube and nasogastric tubes are in satisfactory position. Heart not enlarged. No failure. No active infiltrate. IMPRESSION: No failure. Electronically signed by: Elena Bower M.D. Guillermo Mayes MD IMG XR PROCEDURES Final Resu lt * POCT glucose (10/09/2024 7:06 PM FOOD PROCESSING SCIENTIST) Glucose, POC 128 70 - 199 mg/dL Blood 10/09/2024 7:06 PM FOOD PROCESSING SCIENTIST 10/09/2024 7:06 PM FOOD PROCESSING SCIENTIST us Guillermo Mayes MD LAB POCT ORDERABLES - DEVICE Final Result Performing Organization Address [facility] Co de Phone Number NICOLE [address] Jose Manuel [facility] [place] [employer] [place] [address] * Transfuse platelets (10/09/2024 7:00 PM FOOD PROCESSING SCIENTIST) Blood us Guillermo Mayes MD BLOOD TRANSFUSION ORDERABLES Final Result Performing Organization Address [facility] de Phone Number LORINACE [id number] Jose Manuel [facility] [employer] [place] [address] * Transfuse cryoprecipitate (pooled units) (10/09/2024 7:00 PM FOOD PROCESSING SCIENTIST) Blood us Guillermo Mayes MD BLOOD TRANSFUSION ORDERABLES Final Result Performing Organization Address [facility] Co de Phone Number LORINACE [address] Jose Manuel [facility] [employer] [place] [address] * Transfuse cryoprecipitate (pooled units) (10/09/2024 6:34 PM FOOD PROCESSING SCIENTIST) Blood Guillermo Mayes MD BLOOD TRANSFUSION ORDERABLES Final Result Performing Organization Address [facility] Co de Phone Number LORINACE [address] Jose Manuel [facility] [employer] [place], [place] [id number] * Critical Care (10/09/2024 5:28 PM FOOD PROCESSING SCIENTIST) Narrative Case Guerrero MD - 10/09/2024 5:28 PM FOOD PROCESSING SCIENTIST Case Guerrero MD 10/10/2024 4:43 PM Critical [...] plan with the ICU team and other medical/employment consultant staff, making frequent assessments and decisions [...] Result * POCT glucose (10/09/2024 5:23 PM FOOD PROCESSING SCIENTIST) Glucose, POC 137 70 - 199 mg/dL Blood 10/09/2024 5:23 PM FOOD PROCESSING SCIENTIST 10/09/2024 5:23 PM FOOD PROCESSING SCIENTIST us Guillermo Mayes MD LAB POCT ORDERABLES - DEVICE Final Result NICOLE [address] Jose Manuel [place] [address] * Prepare cryoprecipitate (pooled units): 2 Units (10/09/2024 5:10 PM FOOD PROCESSING SCIENTIST) Product code [id number] Unit Number [id number] N CERNER CH Product Blood Type OPOS CERNER CH Dispense Status PRESUMED TRANSFUSED CERNER CH Product code [id number] CERNER CH Unit Number [id number] J CERNER CH Product Blood Type OPOS CERNER CH Dispense Status PRESUMED TRANSFUSED CERNER CH Blood Venous blood specimen / Unknown 10/09/2024 5:10 PM FOOD PROCESSING SCIENTIST Narrative NICOLE RAYGOZA - 10/09/2024 10:15 PM FOOD PROCESSING SCIENTIST Other indication->post op cardiac bleeding Cryo # of [id number] Reasons:-Other (Specify)} us Guillermo Mayes MD BLOOD BANK PRODUCT ORDERABLE S Final Result NICOLE RAYGOZA [address] Jose Manuel Liu Department [place] [address] * XR Chest 1 View - Portable (10/09/2024 5:05 PM FOOD PROCESSING SCIENTIST) Anatomical Region Laterality Modality Body, Chest N/A Computed Radiogr aphy 10/09/2024 10:3 1 PM FOOD PROCESSING SCIENTIST Impressions 10/09/2024 10:31 PM FOOD PROCESSING SCIENTIST No failure. Electronically signed by: Elena Bower M.D. Narrative 10/09/2024 10:31 PM FOOD PROCESSING SCIENTIST EXAMINATION: XR CHEST 1 VIEW HISTORY: The [...] stomach lumen. The distal tip of a [place]-Fausto catheter is in the proximal right main pulmonary artery. Cardiomegaly with no failure. No active infiltrate. Procedure Note Elena oBwer MD - 10/09/2024 EXAMINATION: XR CHEST 1 [...] stomach lumen. The distal tip of a [place]-Fausto catheter is in the proximal right main pulmonary artery. Cardiomegaly with no failure. No active infiltrate. IMPRESSION: No failure. Electronically signed by: Elena Bower M.D. Fatou Schwartz MD IMG XR PROCEDURES Final Result * (ABNORMAL) Calcium, ionized, whole blood (10/09/2024 4:25 PM FOOD PROCESSING SCIENTIST) Ca, ionized, bld 4.32(L) 4.50 - 5.10 mg/dL Blood 10/09/2024 4:25 PM FOOD PROCESSING SCIENTIST 10/09/2024 4:45 PM FOOD PROCESSING SCIENTIST Guillermo Mayes MD LAB BLOOD ORDERABLES Final R esult NICOLE [address] Jose Manuel Department [place] [address] * eGFR (10/09/2024 4:25 PM FOOD PROCESSING SCIENTIST) eGFR 76 >=60 mL/min/1. 73 m2 Comment: [...] last reviewed 2021. Blood 10/09/2024 4:25 PM FOOD PROCESSING SCIENTIST 10/09/2024 4:57 PM FOOD PROCESSING SCIENTIST Fatou Schwartz MD LAB BLOOD ORDERABLES Final Res ult Performing Organization Address [facility] de Phone Number NICOLE RAYGOZA [address] Jose Manuel [facility] [employer] [place] [address] * (ABNORMAL) aPTT (10/09/2024 4:25 PM FOOD PROCESSING SCIENTIST) aPTT 58(H) 28 - 38 sec Comment: Interpretive Data Heparin therapeutic range: 66.0 - 100.0 seconds. Range based on correlation with therapeutic heparin activity range of 0.3 - 0.7 Units/mL. Current interpretive data was last revised on 2023. Blood 10/09/2024 4:25 PM FOOD PROCESSING SCIENTIST 10/09/2024 4:46 PM FOOD PROCESSING SCIENTIST Fatou Schwartz MD LAB BLOOD ORDERABLES Final Res ult Performing Organization Address [facility] de Phone Number NICOLE RAYGOZA [address] Jose Manuel [facility] [employer] [place] [address] * (ABNORMAL) Protime-INR (10/09/2024 4:25 PM FOOD PROCESSING SCIENTIST) PT 13.8(H) 9.7 - 13.0 sec INR 1.27(H) 0.90 - 1.20 NICOLE RAYGOZA Comment: Interpretive data Oral anticoagulant therapeutic ranges: Venous thromboembolism prophylaxis or treatment: 2.0-3.0 CARDIOLOGY Standard range: 2.0-3.0 High-intensity range: 2.5-3.5 Refer to indication-specific guidelines for appropriate target ranges for prosthetic heart valve replacement. Current interpretive data was last revised on 2019. Blood 10/09/2024 4:25 PM FOOD PROCESSING SCIENTIST 10/09/2024 4:46 PM FOOD PROCESSING SCIENTIST Fatou Schwartz MD LAB BLOOD ORDERABLES Final Res ult Performing Organization Address [facility] Co de Phone Number NICOLE RAYGOZA [address] Jose Manuel [facility] [employer] [place] [address] * Fibrinogen (10/09/2024 4:25 PM FOOD PROCESSING SCIENTIST) Fibrinogen 178 170 - 400 mg/dL Blood 10/09/2024 4:25 PM FOOD PROCESSING SCIENTIST 10/09/2024 4:56 PM FOOD PROCESSING SCIENTIST Guillermo Mayes MD LAB BLOOD ORDERABLES Final R esult Performing Organization Address [facility] Co de Phone Number NICOLE RAYGOZA [address] Jose Manuel [place] [place] [address] * (ABNORMAL) CBC without differential (10/09/2024 4:25 PM FOOD PROCESSING SCIENTIST) Pathologist [facility] WBC 7.8 3.8 - 9.9 K/cumm Hgb 10.6(L) 13.0 - 17.5 g/dL [facility] CH Comment:Hemoglobin delta due to surgical procedure. Hct 30.7(L) 38.9 - 50.3 % [facility] Plt 106(L) 150 - 400 K/cumm [facility] MPV 10.6 9.1 - 12.3 fL [facility] RBC 3.51(L) 4.30 - 5.80 M/cumm [facility] CH MCV 87.5 81.3 - 96.4 fL [facility] MCH 30.2 27.1 - 33.3 pg [facility] MCHC 34.5 32.3 - 35.7 g/dL [facility] CH RDW CV 13.2 11.1 - 14.9 % [facility] CH RDW SD 41.8 35.7 - 48.1 fL [facility] NRBC abs 0.00 0.00 - 0.01 K/cumm [facility] Blood 10/09/2024 4:25 PM FOOD PROCESSING SCIENTIST 10/09/2024 4:46 PM FOOD PROCESSING SCIENTIST us Fatou Schwartz MD LAB BLOOD ORDERABLES Final Res ult Performing Organization Address [facility] Co de Phone Number NICOLE RAYGOZA [address] Jose Manuel [place] [address] * Phosphorus (10/09/2024 4:25 PM FOOD PROCESSING SCIENTIST) Pathologist [facility] Phosphorus, pl 2.9 2.3 - 4.5 mg/dL Blood 10/09/2024 4:25 PM FOOD PROCESSING SCIENTIST 10/09/2024 4:53 PM FOOD PROCESSING SCIENTIST Yvette Russell NP LAB BLOOD ORDERABLES Fin al Result Performing Organization Address [facility]/ZIP Co de Phone Number NICOLE RAYGOZA [address] Jose Manuel Liu Department of [employer] [place], [place] [id number] * Magnesium (10/09/2024 4:25 PM FOOD PROCESSING SCIENTIST) Magnesium 2.4 1.4 - 2.5 mg/dL Blood 10/09/2024 4:25 PM FOOD PROCESSING SCIENTIST 10/09/2024 4:45 PM FOOD PROCESSING SCIENTIST Guillermo Mayes MD LAB BLOOD ORDERABLES Final R esult Performing Organization Address [facility] de Phone Number NICOLE RAYGOZA [address] Jose Manuel Liu Department [employer] [place] [address] * (ABNORMAL) Blood gas, arterial (10/09/2024 4:25 PM FOOD PROCESSING SCIENTIST) pH, Art 7.44 7.35 - 7.45 PCO2, [...] % CERNER CH Blood 10/09/2024 4:25 PM FOOD PROCESSING SCIENTIST 10/09/2024 4:45 PM FOOD PROCESSING SCIENTIST Fatou Schwartz MD LAB BLOOD ORDERABLES Final Res ult Performing Organization Address [facility]/ZIP Co de Phone Number NICOLE RAYGOZA [address] Jose Manuel Liu Department [place] [employer] [place] [address] * (ABNORMAL) Basic metabolic panel (10/09/2024 4:25 PM FOOD PROCESSING SCIENTIST) Sodium 140 135 - 145 mmol/L Potassium, pl 3.8 3.3 - 4.9 mmol/L CERNER Chloride 109 97 - 110 mmol/L [facility] CH CO2 19(L) 22 - 32 mmol/L [facility] CH Anion gap 12 2 - 15 mmol/L [facility] CH BUN 16 6 - 25 mg/dL [facility] Creatinine 1.00 0.80 - 1.30 mg/dL [facility] CH Glucose 142 70 - 199 mg/dL [facility] CH Comment: Interpretive Data Fasting glucose >/= [...] 2022. Calcium 7.7(L) 8.5 - 10.3 mg/dL [facility] Blood 10/09/2024 4:25 PM FOOD PROCESSING SCIENTIST 10/09/2024 4:45 PM FOOD PROCESSING SCIENTIST Fatou Schwartz MD LAB BLOOD ORDERABLES Final Res ult Performing Organization Address City/[facility] Co de Phone Number [facility] [place] [address] Jose Manuel Liu [employer] [place] [address] * POCT glucose (10/09/2024 4:07 PM FOOD PROCESSING SCIENTIST) Glucose, POC 133 70 - 199 mg/dL Blood 10/09/2024 4:07 PM FOOD PROCESSING SCIENTIST 10/09/2024 4:07 PM FOOD PROCESSING SCIENTIST Fatou Schwartz MD LAB POCT ORDERABLES - DEVICE F inal Result Performing Organization Address City/[facility]/ZIP Co de Phone Number [facility] [address] Jose Manuel Liu Department [place] [employer] [place] [address] * Prepare platelets: 2 Units (10/09/2024 3:37 PM FOOD PROCESSING SCIENTIST) Pathologist [facility] Product code [id number] Unit Number [id number] A CERNER CH Product Blood Type OPOS CERNER CH Dispense Status PRESUMED TRANSFUSED CERNER CH Product code [id number] CERNER CH Unit Number [id number]- S CERNER CH Product Blood Type ABPO CERNER CH Dispense Status PRESUMED TRANSFUSED CERNER CH Blood Venous blood specimen / Unknown 10/09/2024 3:37 PM FOOD PROCESSING SCIENTIST Narrative CERNER CH - 10/10/2024 10:15 AM FOOD PROCESSING SCIENTIST Other indication->bleeding post cardiovascular surgery Are special requirements needed? (all products are leukoreduced)->No Date required:-[id number] PLT # of Units:-2-Units Reasons:-Other (Specify)} Guillermo Mayes MD BLOOD BANK PRODUCT ORDERABLE S Final Result Performing Organization Address [facility] Co de Phone Number NICOLE RAYGOZA [address] Department [place] [employer] [place] [address] * POC Activated Clotting Time, High Range (10/09/2024 3:23 PM FOOD PROCESSING SCIENTIST) [facility] ACT 104 87 - 138 sec Blood 10/09/2024 3:23 PM FOOD PROCESSING SCIENTIST 10/09/2024 3:23 PM FOOD PROCESSING SCIENTIST Fatou Schwartz MD LAB BLOOD ORDERABLES Final Res ult Performing Organization Address [facility] Co de Phone Number NICOLE RAYGOZA [address] Department [place] [employer] [place] [address] * (ABNORMAL) POC Blood Gas and Chemistries, Arterial - (10/09/2024 3:18 PM FOOD PROCESSING SCIENTIST) [facility] pH, Art POC 7.38 7.35 - [...] g/dL CERNER CH Blood 10/09/2024 3:18 PM FOOD PROCESSING SCIENTIST 10/09/2024 3:18 PM FOOD PROCESSING SCIENTIST Fatou Schwartz MD LAB POCT ORDERABLES - DEVICE F inal Result Performing Organization Address [facility] Co de Phone Number NICOLE RAYGOZA [address] Jose Manuel [employer] [place] [address] * (ABNORMAL) aPTT (10/09/2024 3:00 PM FOOD PROCESSING SCIENTIST) aPTT 42(H) 28 - 38 sec Comment: Interpretive Data Heparin therapeutic range: 66.0 - 100.0 seconds. Range based on correlation with therapeutic heparin activity range of 0.3 - 0.7 Units/mL. Current interpretive data was last revised on 2023. Blood 10/09/2024 3:00 PM FOOD PROCESSING SCIENTIST 10/09/2024 3:06 PM FOOD PROCESSING SCIENTIST Guillermo Mayes MD LAB BLOOD ORDERABLES Final R esult NICOLE RAYGOZA [address] [address] [facility] [employer] [place] [address] * (ABNORMAL) Protime-INR (10/09/2024 3:00 PM FOOD PROCESSING SCIENTIST) PT 16.7(H) 9.7 - 13.0 sec INR 1.53(H) 0.90 - 1.20 NICOLE RAYGOZA Comment: Interpretive data Oral anticoagulant therapeutic ranges: Venous thromboembolism prophylaxis or treatment: 2.0-3.0 CARDIOLOGY Standard range: 2.0-3.0 High-intensity range: 2.5-3.5 Refer to indication-specific guidelines for appropriate target ranges for prosthetic heart valve replacement. Current interpretive data was last revised on 2019. Blood 10/09/2024 3:00 PM FOOD PROCESSING SCIENTIST 10/09/2024 3:06 PM FOOD PROCESSING SCIENTIST Guillermo Mayes MD LAB BLOOD ORDERABLES Final R esult Performing Organization Address [facility] de Phone Number NICOLE [address] [place] [address] * Fibrinogen (10/09/2024 3:00 PM FOOD PROCESSING SCIENTIST) Pathologist [facility] Fibrinogen 188 170 - 400 mg/dL Blood 10/09/2024 3:00 PM FOOD PROCESSING SCIENTIST 10/09/2024 3:06 PM FOOD PROCESSING SCIENTIST Guillermo Mayes MD LAB BLOOD ORDERABLES Final R esult Performing Organization Address [facility] Co de Phone Number [facility] [address] Jose Manuel [facility] [employer] [place] [address] * (ABNORMAL) Platelet count (10/09/2024 3:00 PM FOOD PROCESSING SCIENTIST) Plt 114(L) 150 - 400 K/cumm Blood 10/09/2024 3:00 PM FOOD PROCESSING SCIENTIST 10/09/2024 3:06 PM FOOD PROCESSING SCIENTIST Guillermo Mayes MD LAB BLOOD ORDERABLES Final R esult Performing Organization Address [facility]/ZIP Co de Phone Number NICOLE RAYGOZA [address] Department [place] [address] * Transfuse platelets (10/09/2024 2:38 PM FOOD PROCESSING SCIENTIST) Blood Williams Carrillo MD BLOOD TRANSFUSION ORDERABLES Fin al Result Performing Organization Address City/[facility]/ZIP Co de Phone Number NICOLE RAYGOZA [address] [address] [place] [address] * (ABNORMAL) POC Blood Gas and Chemistries, Arterial - (10/09/2024 2:09 PM FOOD PROCESSING SCIENTIST) pH, Art POC 7.41 7.35 - 7.45 [...] g/dL [facility]ER CH Blood 10/09/2024 2:09 PM FOOD PROCESSING SCIENTIST 10/09/2024 2:09 PM FOOD PROCESSING SCIENTIST Fatou Schwartz MD LAB POCT ORDERABLES - DEVICE F inal Result Performing Organization Address [facility] Co de Phone Number NICOLE [address] Jose Manuel [facility] [place] [employer] [place] [address] * Transfuse plasma (10/09/2024 2:07 PM FOOD PROCESSING SCIENTIST) Blood Williams Carrillo MD BLOOD TRANSFUSION ORDERABLES Fin al Result Performing Organization Address [facility] Co de Phone Number NICOLE [address] Jose Manuel [facility] [place] [employer] [place] [address] * Transfuse platelets (10/09/2024 2:03 PM FOOD PROCESSING SCIENTIST) Blood Williams Carrillo MD BLOOD TRANSFUSION ORDERABLES Kedar diogo Result - Final Performing Organization Address [facility] Co de Phone Number NICOLE [address] Jose Manuel Department [employer] [address] * POC Activated Clotting Time, High Range (10/09/2024 2:03 PM FOOD PROCESSING SCIENTIST) ACT 129 87 - 138 sec Blood 10/09/2024 2:03 PM FOOD PROCESSING SCIENTIST 10/09/2024 2:03 PM FOOD PROCESSING SCIENTIST Fatou Schwartz MD LAB BLOOD ORDERABLES Final Res ult Performing Organization Address [facility] Co de Phone Number NICOLE [address] Jose Manuel [facility] [place] [employer] [place] [address] * (ABNORMAL) POC Blood Gas and Chemistries, Arterial - (10/09/2024 1:34 PM FOOD PROCESSING SCIENTIST) pH, Art POC 7.37 7.35 - 7.45 [...] g/dL CERNER CH Blood 10/09/2024 1:34 PM FOOD PROCESSING SCIENTIST 10/09/2024 1:34 PM FOOD PROCESSING SCIENTIST Fatou Schwartz MD LAB POCT ORDERABLES - DEVICE F inal Result Performing Organization Address City/[facility]/ZIP Co de Phone Number NICOLE RAYGOZA [address] Jose Manuel [employer] [place] [address] * (ABNORMAL) POC Activated Clotting Time, High Range (10/09/2024 1:31 PM FOOD PROCESSING SCIENTIST) ACT 729(H) 87 - 138 sec Blood 10/09/2024 1:31 PM FOOD PROCESSING SCIENTIST 10/09/2024 1:31 PM FOOD PROCESSING SCIENTIST Fatou Schwartz MD LAB BLOOD ORDERABLES Final Res ult Performing Organization Address City/[facility]/ZIP Co de Phone Number NICOLE RAYGOZA [address] Jose Manuel Department [place] [employer] [place] [address] * (ABNORMAL) POC Blood Gas and Chemistries, Arterial - (10/09/2024 1:08 PM FOOD PROCESSING SCIENTIST) Pathologist [facility] pH, Art POC 7.39 [...] g/dL [facility]ERNER CH Blood 10/09/2024 1:08 PM FOOD PROCESSING SCIENTIST 10/09/2024 1:08 PM FOOD PROCESSING SCIENTIST Fatou Schwartz MD LAB POCT ORDERABLES - DEVICE F inal Result NICOLE RAYGOZA [address] Jose Manuel Department [place] [address] * (ABNORMAL) POC Activated Clotting Time, High Range (10/09/2024 1:06 PM FOOD PROCESSING SCIENTIST) Pathologist [facility] ACT 546(H) 87 - 138 sec Blood 10/09/2024 1:06 PM FOOD PROCESSING SCIENTIST 10/09/2024 1:06 PM FOOD PROCESSING SCIENTIST Fatou Schwartz MD LAB BLOOD ORDERABLES Final Res ult NICOLE RAYGOZA [address] Department [place] [employer] [place] [address] * (ABNORMAL) Platelet count (10/09/2024 1:05 PM FOOD PROCESSING SCIENTIST) Plt 128(L) 150 - 400 K/cumm Blood 10/09/2024 1:05 PM FOOD PROCESSING SCIENTIST 10/09/2024 1:10 PM FOOD PROCESSING SCIENTIST us Guillermo Mayes MD LAB BLOOD ORDERABLES Final R esult Performing Organization Address [facility] de Phone Number NICOLE RAYGOZA [address] Jose Manuel Department [place] [place] [address] * (ABNORMAL) POC Blood Gas and Chemistries, Arterial - (10/09/2024 12:31 PM FOOD PROCESSING SCIENTIST) pH, Art POC 7.39 7.35 - 7.45 [...] CERNER CH Blood 10/09/2024 12:3 1 PM FOOD PROCESSING SCIENTIST 10/09/2024 12:31 PM FOOD PROCESSING SCIENTIST Fatou Schwartz MD LAB POCT ORDERABLES - DEVICE F inal Result Performing Organization Address [facility]/ZIP Co de Phone Number NICOLE RAYGOZA [address] Jose Manuel Department [place] [place] [address] * (ABNORMAL) POC Activated Clotting Time, High Range (10/09/2024 12:29 PM FOOD PROCESSING SCIENTIST) Pathologist [facility] ACT 567(H) 87 - 138 sec Blood 10/09/2024 12:2 9 PM FOOD PROCESSING SCIENTIST 10/09/2024 12:29 PM FOOD PROCESSING SCIENTIST Fatou Schwartz MD LAB BLOOD ORDERABLES Final Res ult Performing Organization Address [facility] Co de Phone Number NICOLE RAYGOZA [address] Jose Manuel Department [place] [address] * (ABNORMAL) POC Blood Gas and Chemistries, Arterial - (10/09/2024 11:59 AM FOOD PROCESSING SCIENTIST) pH, Art POC 7.36 7.35 - 7.45 [...] CERNER CH Blood 10/09/2024 11:5 9 AM FOOD PROCESSING SCIENTIST 10/09/2024 11:59 AM FOOD PROCESSING SCIENTIST Fatou Schwartz MD LAB POCT ORDERABLES - DEVICE F inal Result Performing Organization Address City/[facility]/ZIP Co de Phone Number NICOLE RAYGOZA [address] Jose Manuel Department of [employer] [place], [place] [id number] * (ABNORMAL) POC Activated Clotting Time, High Range (10/09/2024 11:57 AM FOOD PROCESSING SCIENTIST) ACT 673(H) 87 - 138 sec Blood 10/09/2024 11:5 7 AM FOOD PROCESSING SCIENTIST 10/09/2024 11:57 AM FOOD PROCESSING SCIENTIST Fatou Schwartz MD LAB BLOOD ORDERABLES Final Res ult Performing Organization Address [facility]/ZIP Co de Phone Number NICOLE IDALMIS [address] [address] Manuel Department of [employer] [place], [place] [address] * (ABNORMAL) POC Blood Gas and Chemistries, Arterial - (10/09/2024 11:29 AM FOOD PROCESSING SCIENTIST) pH, Art POC 7.36 7.35 - 7.45 [...] CERNER CH Blood 10/09/2024 11:2 9 AM FOOD PROCESSING SCIENTIST 10/09/2024 11:29 AM FOOD PROCESSING SCIENTIST Fatou Schwartz MD LAB POCT ORDERABLES - DEVICE F inal Result Performing Organization Address City/[facility]/ZIP Co de Phone Number NICOLE RAYGOZA [address] [address] [employer] [place] [address] * (ABNORMAL) POC Activated Clotting Time, High Range (10/09/2024 11:27 AM FOOD PROCESSING SCIENTIST) ACT 564(H) 87 - 138 sec Blood 10/09/2024 11:2 7 AM FOOD PROCESSING SCIENTIST 10/09/2024 11:27 AM FOOD PROCESSING SCIENTIST Fatou Schwartz MD LAB BLOOD ORDERABLES Final Res ult NICOLE IDALMIS [address] Jose [address] Liu Department [employer] [place], [place] [id number] * (ABNORMAL) POC Blood Gas and Chemistries, Arterial - (10/09/2024 10:55 AM FOOD PROCESSING SCIENTIST) pH, Art POC 7.32(L) 7.35 - 7.45 [...] [facility]ERNER CH Blood 10/09/2024 10:5 5 AM FOOD PROCESSING SCIENTIST 10/09/2024 10:55 AM FOOD PROCESSING SCIENTIST Fatou Schwartz MD LAB POCT ORDERABLES - DEVICE F inal Result Performing Organization Address [facility] Co de Phone Number [facility] [place] [address] [address] [place] [address] * (ABNORMAL) POC Activated Clotting Time, High Range (10/09/2024 10:53 AM FOOD PROCESSING SCIENTIST) ACT 539(H) 87 - 138 sec Blood 10/09/2024 10:5 3 AM FOOD PROCESSING SCIENTIST 10/09/2024 10:53 AM FOOD PROCESSING SCIENTIST Fatou Schwartz MD LAB BLOOD ORDERABLES Final Res ult NICOLE [address] [facility] [place] [address] * Surgical pathology (10/09/2024 10:29 AM FOOD PROCESSING SCIENTIST) Tissue specimen (specimen) (Heart Valve) 10/09/2024 12:38 PM FOOD PROCESSING SCIENTIST Narrative PATHOLOGY - 10/11/2024 3:54 PM FOOD PROCESSING SCIENTIST EPIC results best viewed via link to PDF [facility] Department of Pathology [address] [place], [place] [id number] Note to Patients: This report may contain [...] Final Report Patient Name: TREVOR SHAW Address: [address] [place] [address] Gender: M : 1945 (Age: 79) Service: Cardiothoracic Location: Hospital #: [id number] Patient Type: [facility] Taken: 10/09/2024 Received: 10/10/2024 Accessioned: 10/10/2024 [...] degeneration. 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. It has not been cleared or approved by the [place] Food and Drug Administration. Note for decalcified specimens: This assay has not been validated on decalcified tissues. Results should be interpreted with caution given the possibility of false negativity on decalcified specimens us Guillermo Mayes MD LAB PATHOLOGY ORDERABLES Fin al Result PATHOLOGY [address] [place] [address] * (ABNORMAL) POC Blood Gas and Chemistries, Arterial - (10/09/2024 10:00 AM FOOD PROCESSING SCIENTIST) pH, Art POC 7.35 7.35 - 7.45 [...] [facility]ERNER CH Blood 10/09/2024 10:0 0 AM FOOD PROCESSING SCIENTIST 10/09/2024 10:00 AM FOOD PROCESSING SCIENTIST Fatou Schwartz MD LAB POCT ORDERABLES - DEVICE F inal Result Performing Organization Address [facility]/ZIP Co de Phone Number NICOLE [address] [address] Department [place] [address] * (ABNORMAL) POC Activated Clotting Time, High Range (10/09/2024 9:54 AM FOOD PROCESSING SCIENTIST) ACT 619(H) 87 - 138 sec Blood 10/09/2024 9:54 AM FOOD PROCESSING SCIENTIST 10/09/2024 9:54 AM FOOD PROCESSING SCIENTIST Fatou Schwartz MD LAB BLOOD ORDERABLES Final Res ult NICOLE RAYGOZA [address] [address] Department [place] [address] * BW AN SHEATH INTRODUCER PERFORMABLE, PULMONARY ARTERY CATH (10/09/2024 9:32 AM FOOD PROCESSING SCIENTIST) Brannon Robledo AA - 10/09/2024 9:32 AM FOOD PROCESSING SCIENTIST Brannon Jeffers AA 10/09/2024 9:34 AM Central [...] lt * Arterial Line (10/09/2024 9:23 AM FOOD PROCESSING SCIENTIST) Brannon Robledo AA - 10/09/2024 9:23 AM FOOD PROCESSING SCIENTIST Brannon Jeffers AA 10/09/2024 9:32 AM Arterial [...] ORDERABLES Edited Res ult - Final * GENVEA (10/09/2024 9:18 AM FOOD PROCESSING SCIENTIST) Anatomical Region Laterality Modality Other Narrative 10/09/2024 9:18 AM FOOD PROCESSING SCIENTIST Williams Carrillo MD 10/09/2024 9:20 AM GENEVA [...] inferior: normal 16- Apical septal: normal 17- [place]: normal Valves: Aortic Valve: Annulus: normal Leaflet [...] MD ANESTHESIA ORDERABLES Final Resu lt * CO AN ELECTIVE ENDOTRACHEAL AIRWAY (10/09/2024 9:07 AM FOOD PROCESSING SCIENTIST) Narrative Brannon Jeffers AA - 10/09/2024 9:07 AM FOOD PROCESSING SCIENTIST Brannon Jeffers AA 10/09/2024 9:32 AM Airway [...] and Chemistries, Arterial - (10/09/2024 8:49 AM FOOD PROCESSING SCIENTIST) pH, Art POC 7.41 7.35 - 7.45 [...] g/dL [facility] CH Blood 10/09/2024 8:49 AM FOOD PROCESSING SCIENTIST 10/09/2024 8:49 AM FOOD PROCESSING SCIENTIST us Fatou Schwartz MD LAB POCT ORDERABLES - [place] [address] Department [place] [address] * POC Activated Clotting Time, High Range (10/09/2024 8:46 AM FOOD PROCESSING SCIENTIST) Pathologist [facility] ACT 101 87 - 138 sec Blood 10/09/2024 8:46 AM FOOD PROCESSING SCIENTIST 10/09/2024 8:46 AM FOOD PROCESSING SCIENTIST Fatou Schwartz MD LAB BLOOD ORDERABLES Final Res ult Performing Organization Address [facility] de Phone Number NICOLE [address] [address] [employer] [place] [address] * (ABNORMAL) aPTT (10/09/2024 4:30 AM FOOD PROCESSING SCIENTIST) [facility] aPTT 54(H) 28 - 38 sec Comment: Interpretive Data Heparin therapeutic range: 66.0 - 100.0 seconds. Range based on correlation with therapeutic heparin activity range of 0.3 - 0.7 Units/mL. Current interpretive data was last revised on 2023. Blood 10/09/2024 4:30 AM FOOD PROCESSING SCIENTIST 10/09/2024 5:44 AM FOOD PROCESSING SCIENTIST Fatou Schwartz MD LAB BLOOD ORDERABLES Final Res ult Performing Organization Address [facility] de Phone Number NICOLE RAYGOZA [address] [address] [facility] [place] [employer] [place] [address] * CBC without differential (10/09/2024 4:30 AM FOOD PROCESSING SCIENTIST) [facility] WBC 5.0 3.8 - 9.9 K/cumm Hgb 14.4 13.0 - 17.5 g/dL [facility] Hct 42.9 38.9 - 50.3 % [facility] Plt 158 150 - 400 K/cumm [facility] MPV 11.3 9.1 - 12.3 fL [facility] RBC 4.76 4.30 - 5.80 M/cumm [facility] MCV 90.1 81.3 - 96.4 fL [facility] MCH 30.3 27.1 - 33.3 pg [facility] MCHC 33.6 32.3 - 35.7 g/dL [facility] RDW CV 13.2 11.1 - 14.9 % [facility] RDW SD 42.9 35.7 - 48.1 fL [facility] NRBC abs 0.00 0.00 - 0.01 K/cumm [facility] Blood 10/09/2024 4:30 AM FOOD PROCESSING SCIENTIST 10/09/2024 5:43 AM FOOD PROCESSING SCIENTIST Narrative [facility] - 10/09/2024 6:14 AM FOOD PROCESSING SCIENTIST While on heparin infusion Fatou Schwartz MD LAB BLOOD ORDERABLES Final Res ult Performing Organization Address [facility] Co de Phone Number NICOLE RAYGOZA [address] [address] [facility] [place] [address] * (ABNORMAL) aPTT (10/08/2024 6:57 PM FOOD PROCESSING SCIENTIST) aPTT 72(H) 28 - 38 sec Comment: Interpretive Data Heparin therapeutic range: 66.0 - 100.0 seconds. Range based on correlation with therapeutic heparin activity range of 0.3 - 0.7 Units/mL. Current interpretive data was last revised on 2023. Blood 10/08/2024 6:57 PM FOOD PROCESSING SCIENTIST 10/08/2024 7:10 PM FOOD PROCESSING SCIENTIST Fatou Schwartz MD LAB BLOOD ORDERABLES Final Res ult Performing Organization Address City/[facility] Co de Phone Number NICOLE RAYGOZA [address] [address] [facility] [place] [address] * (ABNORMAL) aPTT (10/08/2024 12:52 PM FOOD PROCESSING SCIENTIST) aPTT 49(H) 28 - 38 sec Comment: Interpretive Data Heparin therapeutic range: 66.0 - 100.0 seconds. Range based on correlation with therapeutic heparin activity range of 0.3 - 0.7 Units/mL. Current interpretive data was last revised on 2023. Blood 10/08/2024 12:5 2 PM FOOD PROCESSING SCIENTIST 10/08/2024 1:06 PM FOOD PROCESSING SCIENTIST us Fatou Schwartz MD LAB BLOOD ORDERABLES Final Res ult [facility] [address] [address] Department [place] [address] * Differential, auto (10/08/2024 11:35 AM FOOD PROCESSING SCIENTIST) Neutrophil abs 3.1 1.5 - 6.5 K/cumm Imm gran abs 0.0 0.0 - 0.1 K/cumm [facility] Lymphocyte abs 1.3 0.8 - 3.3 K/cumm [facility] Monocyte abs 0.5 0.2 - 0.8 K/cumm [facility] Eosinophil abs 0.2 0.0 - 0.5 K/cumm [facility] Basophil abs 0.1 0.0 - 0.1 K/cumm [facility] Neutrophil pct 60.5 % [facility] Comment: Interpretive Data Percent cell count reference ranges are not reported, since discordance with absolute values may lead to misinterpretation of CBC data. Current Interpretive Data was last revised on 2017. Imm gran pct 0.4 % [facility] Comment: Interpretive Data Percent cell count reference ranges are not reported, since discordance with absolute values may lead to misinterpretation of CBC data. Current Interpretive Data was last revised on 2017. Lymphocyte pct 24.6 % [facility] Comment: Interpretive Data Percent cell count reference ranges are not reported, since discordance with absolute values may lead to misinterpretation of CBC data. Current Interpretive Data was last revised on 2017. Monocyte pct 9.4 % [facility] Comment: Interpretive Data Percent cell count reference ranges are not reported, since discordance with absolute values may lead to misinterpretation of CBC data. Current Interpretive Data was last revised on 2017. Eosinophil pct 3.9 % [facility] Comment: Interpretive Data Percent cell count reference ranges are not reported, since discordance with absolute values may lead to misinterpretation of CBC data. Current Interpretive Data was last revised on 2017. Basophil pct 1.2 % [facility] Comment: Interpretive Data Percent cell count reference ranges are not reported, since discordance with absolute values may lead to misinterpretation of CBC data. Current Interpretive Data was last revised on 2017. Blood 10/08/2024 11:3 5 AM FOOD PROCESSING SCIENTIST 10/08/2024 12:43 PM FOOD PROCESSING SCIENTIST Jewel Heart MD LAB BLOOD ORDERABLES Kamla l Result Performing Organization Address [facility] Co de Phone Number [facility] [address] [address] [facility] [place] [employer] [place] [address] * Check Sample (10/08/2024 11:35 AM FOOD PROCESSING SCIENTIST) ABO Rh O Positive CH HCLL OTHER 10/08/2024 11:3 5 AM FOOD PROCESSING SCIENTIST 10/08/2024 12:43 PM FOOD PROCESSING SCIENTIST Fatou Schwartz MD LAB BLOOD ORDERABLES Final Res ult Performing Organization Address [facility] de Phone Number [facility] [address] [address] [facility] [place] [employer] [place] [address] CH * CBC with auto differential (10/08/2024 11:35 AM FOOD PROCESSING SCIENTIST) WBC 5.1 3.8 - 9.9 K/cumm Hgb 14.8 13.0 - 17.5 g/dL [facility] Hct 45.0 38.9 - 50.3 % [facility] Plt 168 150 - 400 K/cumm [facility] MPV 10.9 9.1 - 12.3 fL [facility] RBC 4.90 4.30 - 5.80 M/cumm [facility] MCV 91.8 81.3 - 96.4 fL [facility] CH MCH 30.2 27.1 - 33.3 pg [facility] MCHC 32.9 32.3 - 35.7 g/dL [facility] CH RDW CV 13.2 11.1 - 14.9 % [facility] CH RDW SD 44.5 35.7 - 48.1 fL [facility] NRBC abs 0.00 0.00 - 0.01 K/cumm [facility] Blood 10/08/2024 11:3 5 AM FOOD PROCESSING SCIENTIST 10/08/2024 12:43 PM FOOD PROCESSING SCIENTIST Jewel Heart MD LAB BLOOD ORDERABLES Kamla l Result Performing Organization Address [facility] Co de Phone Number NICOLE [address] [address] Department [place] [employer] [place] [address] * (ABNORMAL) aPTT (10/08/2024 11:35 AM FOOD PROCESSING SCIENTIST) Pathologist [facility] aPTT 57(H) 28 - 38 sec Comment: Interpretive Data Heparin therapeutic range: 66.0 - 100.0 seconds. Range based on correlation with therapeutic heparin activity range of 0.3 - 0.7 Units/mL. Current interpretive data was last revised on 2023. Blood 10/08/2024 11:3 5 AM FOOD PROCESSING SCIENTIST 10/08/2024 12:43 PM FOOD PROCESSING SCIENTIST Fatou Schwartz MD LAB BLOOD ORDERABLES Final Res ult Performing Organization Address [facility] de Phone Number [facility] [address] [address] [facility] [employer] [place] [address] * Type and screen (10/08/2024 11:35 AM FOOD PROCESSING SCIENTIST) [facility] Nani, indirect Negative ABO Rh O Positive [facility] Blood 10/08/2024 11:3 5 AM FOOD PROCESSING SCIENTIST 10/08/2024 12:44 PM FOOD PROCESSING SCIENTIST Narrative [facility] - 10/08/2024 1:20 PM FOOD PROCESSING SCIENTIST Has the patient had Daratumumab or Isatuximab in the past 6 months?->Unknown Migdalia Salcedo NP LAB BLOOD BANK TEST ORDERA BLES Final Result Performing Organization Address [facility] Co de Phone Number NICOLE [address] [address] Department [place] [employer] [place] [address] * Prepare platelets: 2 Units (10/08/2024 10:57 AM FOOD PROCESSING SCIENTIST) Pathologist [facility] Product code [id number] Unit Number [id number] [facility]ER [facility] Product Blood Type OPOS [facility]ER CH Dispense Status PRESUMED TRANSFUSED [facility]ER [facility] Product code [id number] [facility]ER CH Unit Number [id number] [facility]ER CH Product Blood Type APOS [facility] CH Dispense Status PRESUMED TRANSFUSED [facility] Blood Venous blood specimen / Unknown 10/08/2024 10:57 AM FOOD PROCESSING SCIENTIST Narrative [facility] - 10/09/2024 10:15 PM FOOD PROCESSING SCIENTIST Specify Procedure:->CABG AVR Are special requirements needed? (all products are leukoreduced)->No Date required:-20241009 PLT # of Units:-2-Units Reasons:-Hold for procedure (specify procedure)} Migdalia Salcedo NP BLOOD BANK PRODUCT ORDERAB LES Final Result Performing Organization Address [facility] Phone Number [facility] [address] [address] [facility] [employer] [place] [address] * Prepare plasma: 2 Units Standard plasma (10/08/2024 10:57 AM FOOD PROCESSING SCIENTIST) [facility] Product code [id number] Unit Number [id number] CERNER CH Product Blood Type APOS CERNER CH Dispense Status PRESUMED TRANSFUSED [facility]ERNER CH Blood Venous blood specimen / Unknown 10/08/2024 10:57 AM FOOD PROCESSING SCIENTIST Narrative NICOLE - 10/09/2024 10:15 PM FOOD PROCESSING SCIENTIST Specify Procedure:->CABG AVR Is this plasma order intended for a COVID-19 patient as convalescent plasma?->Standard plasma Special Requirements Needed?->No Date required:-20241009 FFP # of Units:-2-Units Reasons:-Hold for procedure (specify procedure)} Migdalia Salcedo NP BLOOD BANK PRODUCT ORDERAB LES Final Result Performing Organization Address [facility] de Phone Number [facility] [address] [address] [facility] [place] [employer] [place] [address] * Prepare RBC: 4 Units (10/08/2024 10:57 AM FOOD PROCESSING SCIENTIST) [facility] Product code [id number] Unit Number [id number] 7-7 CERNER CH Product Blood Type OPOS CERNER CH Dispense Status RETURNED CERNER CH Product code [id number] CERNER CH Unit Number [id number] 5-G CERNER CH Product Blood Type OPOS CERNER CH Dispense Status RETURNED CERNER CH Product code [id number] CERNER CH Unit Number [id number] 2-* CERNER CH Product Blood Type OPOS CERNER CH Dispense Status RETURNED [facility]ERNER CH Product code [id number] CERNER CH Unit Number [id number] 9-N [facility]ER CH Product Blood Type OPOS CERNER CH Dispense Status RETURNED [facility]ER CH Blood 10/08/2024 10:5 7 AM FOOD PROCESSING SCIENTIST Narrative [facility] - 10/12/2024 12:10 AM FOOD PROCESSING SCIENTIST Specify Procedure:->CABG AVR Are special requirements needed? (All products are leukoreduced and CMV- safe)- >No Date required:-20241009 LRRBC # of [id number] Reasons:-Hold for procedure (specify procedure)} us Migdalia Salcedo NP BLOOD BANK PRODUCT ORDERAB LES Final Result Performing Organization Address [facility]/ZIP Co de Phone Number NICOLE RAYGOZA [address] [address] [employer] [place] [address] * (ABNORMAL) aPTT (10/08/2024 3:57 AM FOOD PROCESSING SCIENTIST) aPTT 48(H) 28 - 38 sec Comment: Interpretive Data Heparin therapeutic range: 66.0 - 100.0 seconds. Range based on correlation with therapeutic heparin activity range of 0.3 - 0.7 Units/mL. Current interpretive data was last revised on 2023. Blood 10/08/2024 3:57 AM FOOD PROCESSING SCIENTIST 10/08/2024 4:50 AM FOOD PROCESSING SCIENTIST us Fatou Schwartz MD LAB BLOOD ORDERABLES Final Res ult NICOLE RAYGOZA [address] [address] [place] [place] [address] * (ABNORMAL) aPTT (10/07/2024 7:05 AM FOOD PROCESSING SCIENTIST) aPTT 78(H) 28 - 38 sec Comment: Interpretive Data Heparin therapeutic range: 66.0 - 100.0 seconds. Range based on correlation with therapeutic heparin activity range of 0.3 - 0.7 Units/mL. Current interpretive data was last revised on 2023. Blood 10/07/2024 7:05 AM FOOD PROCESSING SCIENTIST 10/07/2024 7:12 AM FOOD PROCESSING SCIENTIST us Guillermo Mayes MD LAB BLOOD ORDERABLES Final R esult NICOLE [address] [address] Department [place] [address] * XR Chest 1 View (10/06/2024 9:13 AM FOOD PROCESSING SCIENTIST) Anatomical Region Laterality Modality Body, Chest N/A Computed Radiogr aphy 10/06/2024 9:39 AM FOOD PROCESSING SCIENTIST Impressions 10/06/2024 9:39 AM FOOD PROCESSING SCIENTIST No active disease. Electronically signed by: Elena Bower M.D. Narrative 10/06/2024 9:39 AM FOOD PROCESSING SCIENTIST EXAMINATION: XR CHEST 1 VIEW HISTORY: The [...] by: Elena Bower M.D. us Migdalia Salcedo ELECTRIC FORK OPERATOR IMG XR PROCEDURES Final Re sult * (ABNORMAL) aPTT (10/06/2024 4:53 AM FOOD PROCESSING SCIENTIST) aPTT 86(H) 28 - 38 sec Comment: Interpretive Data Heparin therapeutic range: 66.0 - 100.0 seconds. Range based on correlation with therapeutic heparin activity range of 0.3 - 0.7 Units/mL. Current interpretive data was last revised on 2023. Blood 10/06/2024 4:53 AM FOOD PROCESSING SCIENTIST 10/06/2024 5:25 AM FOOD PROCESSING SCIENTIST Fatou Schwartz MD LAB BLOOD ORDERABLES Final Res ult [facility] [address] [address] Department [place] [address] * CBC without differential (10/06/2024 12:10 AM FOOD PROCESSING SCIENTIST) WBC 6.3 3.8 - 9.9 K/cumm Hgb 14.5 13.0 - 17.5 g/dL [facility] Hct 42.6 38.9 - 50.3 % [facility] Plt 171 150 - 400 K/cumm [facility] MPV 10.9 9.1 - 12.3 fL [facility] RBC 4.75 4.30 - 5.80 M/cumm [facility] MCV 89.7 81.3 - 96.4 fL [facility] MCH 30.5 27.1 - 33.3 pg [facility] MCHC 34.0 32.3 - 35.7 g/dL [facility] RDW CV 13.0 11.1 - 14.9 % [facility] RDW SD 42.5 35.7 - 48.1 fL [facility] NRBC abs 0.00 0.00 - 0.01 K/cumm [facility] Blood 10/06/2024 12:1 0 AM FOOD PROCESSING SCIENTIST 10/06/2024 12:16 AM FOOD PROCESSING SCIENTIST Narrative [facility] - 10/06/2024 12:46 AM FOOD PROCESSING SCIENTIST While on heparin infusion Fatou Schwartz MD LAB BLOOD ORDERABLES Final Res ult NICOLE RAYGOZA [address] [address] Department [place] [address] * Respiratory pathogen panel Nasopharyngeal (10/05/2024 3:21 PM FOOD PROCESSING SCIENTIST) Pathologist [facility] Influenza A RNA Not Detected Not Detected CH Influenza B RNA Not Detected Not Detected CERNER RSV RNA Not Detected Not Detected [facility] COVID-19 RNA Not Detected Not Detected [facility] Coronavirus 229E RNA Not Detected Not Detected [facility] Coronavirus HKU1 RNA Not Detected Not Detected [facility] Coronavirus NL63 RNA Not Detected Not Detected [facility] Coronavirus OC43 RNA Not Detected Not Detected [facility] Adenovirus DNA Not Detected Not Detected [facility] Metapneumovirus RNA Not Detected Not Detected [facility] Rhinovirus/Enterov irus RNA Not Detected Not Detected [facility] Parainfluenza 1 RNA Not Detected Not Detected [facility] Parainfluenza 2 RNA Not Detected Not Detected [facility] Parainfluenza 3 RNA Not Detected Not Detected [facility] Parainfluenza 4 RNA Not Detected Not Detected [facility] B. pertussis DNA Not Detected Not Detected [facility] B. parapertussis DNA Not Detected Not Detected [facility] C. pneumoniae DNA Not Detected Not Detected [facility] M. pneumoniae DNA Not Detected Not Detected [facility] Comment: Interpretive Data The [employer] FilmArray Respiratory Panel (RP2.1) assay is a [...] assay has FDA clearance for testing of ELECTRIC FORK OPERATOR swabs. The performance characteristics of this assay have been determined by [facility]. Current interpretive data was last revised on 2021. Nasopharyngeal 10/05/2024 3: 21 PM FOOD PROCESSING SCIENTIST 10/05/2024 3:46 PM FOOD PROCESSING SCIENTIST Narrative NICOLE RAYGOZA - 10/05/2024 5:20 PM FOOD PROCESSING SCIENTIST Is the Patient experiencing symptoms consistent with COVID?->Unknown Surveillance testing for transplant patient?->No Carmen Anabela ELECTRIC FORK OPERATOR LAB MICROBIOLOGY - GENERAL ORDER TEVIN Final Result NICOLE RAYGOZA [address] [address] Department [place] [address] * TRANSESOPHAGEAL ECHO (GENEVA) W DOPPLER/CF WO CONTRAST (10/05/2024 2:29 PM FOOD PROCESSING SCIENTIST) BSA 2.42 m2 CONS SCIMAGE Anatomical Region Laterality Modality Other Narrative 10/05/2024 3:21 PM FOOD PROCESSING SCIENTIST Transesophageal Echocardiogram Date of procedure: 10/05/2024 INDICATIONS: [...] Result * (ABNORMAL) eGFR (10/05/2024 12:55 PM FOOD PROCESSING SCIENTIST) eGFR 59(L) >=60 mL/min/1. 73 m2 Comment: [...] reviewed 2021. Blood 10/05/2024 12:5 5 PM FOOD PROCESSING SCIENTIST 10/05/2024 1:14 PM FOOD PROCESSING SCIENTIST us Flaca Giles DO LAB BLOOD ORDERABLES Kamla chen Result [facility] [address] [address] Department [place] [address] * Differential, auto (10/05/2024 12:55 PM FOOD PROCESSING SCIENTIST) Neutrophil abs 3.5 1.5 - 6.5 K/cumm Imm gran abs 0.0 0.0 - 0.1 K/cumm [facility] Lymphocyte abs 1.3 0.8 - 3.3 K/cumm [facility] Monocyte abs 0.5 0.2 - 0.8 K/cumm [facility] Eosinophil abs 0.2 0.0 - 0.5 K/cumm [facility] Basophil abs 0.1 0.0 - 0.1 K/cumm [facility] Neutrophil pct 62.8 % [facility] Comment: Interpretive Data Percent cell count reference ranges are not reported, since discordance with absolute values may lead to misinterpretation of CBC data. Current Interpretive Data was last revised on 2017. Imm gran pct 0.4 % [facility] Comment: Interpretive Data Percent cell count reference ranges are not reported, since discordance with absolute values may lead to misinterpretation of CBC data. Current Interpretive Data was last revised on 2017. Lymphocyte pct 23.8 % [facility] Comment: Interpretive Data Percent cell count reference ranges are not reported, since discordance with absolute values may lead to misinterpretation of CBC data. Current Interpretive Data was last revised on 2017. Monocyte pct 8.2 % [facility] Comment: Interpretive Data Percent cell count reference ranges are not reported, since discordance with absolute values may lead to misinterpretation of CBC data. Current Interpretive Data was last revised on 2017. Eosinophil pct 3.5 % [facility] Comment: Interpretive Data Percent cell count reference ranges are not reported, since discordance with absolute values may lead to misinterpretation of CBC data. Current Interpretive Data was last revised on 2017. Basophil pct 1.3 % [facility] Comment: Interpretive Data Percent cell count reference ranges are not reported, since discordance with absolute values may lead to misinterpretation of CBC data. Current Interpretive Data was last revised on 2017. Blood 10/05/2024 12:5 5 PM FOOD PROCESSING SCIENTIST 10/05/2024 1:14 PM FOOD PROCESSING SCIENTIST us Flaca Giles DO LAB BLOOD ORDERABLES Kamla l Result [facility] [address] [address] Department [place] [address] * CBC with auto differential (10/05/2024 12:55 PM FOOD PROCESSING SCIENTIST) WBC 5.5 3.8 - 9.9 K/cumm Hgb 14.9 13.0 - 17.5 g/dL [facility] Hct 45.0 38.9 - 50.3 % [facility] Plt 170 150 - 400 K/cumm [facility] MPV 10.3 9.1 - 12.3 fL [facility] RBC 4.97 4.30 - 5.80 M/cumm [facility] MCV 90.5 81.3 - 96.4 fL [facility] MCH 30.0 27.1 - 33.3 pg [facility] MCHC 33.1 32.3 - 35.7 g/dL [facility] RDW CV 13.1 11.1 - 14.9 % [facility] RDW SD 43.0 35.7 - 48.1 fL [facility] NRBC abs 0.00 0.00 - 0.01 K/cumm [facility] Blood 10/05/2024 12:5 5 PM FOOD PROCESSING SCIENTIST 10/05/2024 1:14 PM FOOD PROCESSING SCIENTIST Flaca Giles LAB BLOOD ORDERABLES Kamla l Result NICOLE RAYGOZA [address] [address] Department [place] [address] * Basic metabolic panel (10/05/2024 12:55 PM FOOD PROCESSING SCIENTIST) Sodium 139 135 - 145 mmol/L Potassium, pl 4.2 3.3 - 4.9 mmol/L [facility] Chloride 103 97 - 110 mmol/L [facility] CH CO2 25 22 - 32 mmol/L [facility] Anion gap 11 2 - 15 mmol/L [facility] BUN 18 6 - 25 mg/dL [facility] Creatinine 1.24 0.80 - 1.30 mg/dL [facility] Glucose 94 70 - 199 mg/dL [facility] Comment: Interpretive Data Fasting glucose >/= [...] 2022. Calcium 9.4 8.5 - 10.3 mg/dL [facility] Blood 10/05/2024 12:5 5 PM FOOD PROCESSING SCIENTIST 10/05/2024 1:14 PM FOOD PROCESSING SCIENTIST Flaca Giles LAB BLOOD ORDERABLES Kamla l Result NICOLE RAYGOZA [address] [address] Department [place] [address] * (ABNORMAL) aPTT (10/05/2024 3:14 AM FOOD PROCESSING SCIENTIST) aPTT 80(H) 28 - 38 sec Comment: Interpretive Data Heparin therapeutic range: 66.0 - 100.0 seconds. Range based on correlation with therapeutic heparin activity range of 0.3 - 0.7 Units/mL. Current interpretive data was last revised on 2023. Blood 10/05/2024 3:14 AM FOOD PROCESSING SCIENTIST 10/05/2024 3:56 AM FOOD PROCESSING SCIENTIST Fatou Schwartz MD LAB BLOOD ORDERABLES Final Res ult NICOLE RAYGOZA [address] [address] Department [place] [address] * US Carotids Duplex Bilateral (10/04/2024 3:17 PM FOOD PROCESSING SCIENTIST) Anatomical Region Laterality Modality Vascular Bilateral Ultrasound 10/04/2024 3:25 PM FOOD PROCESSING SCIENTIST Impressions 10/04/2024 3:25 PM FOOD PROCESSING SCIENTIST 1. Bilateral internal carotid artery stenosis estimated at less than 50%. 2. There is antegrade flow in both vertebral arteries. Electronically signed by: Jj Grubbs II, D.O. Narrative 10/04/2024 3:25 PM FOOD PROCESSING SCIENTIST EXAMINATION: BILATERAL CAROTID DUPLEX EXAM DATE: 10/04/2024 [...] CT Chest WO Contrast (10/04/2024 11:54 AM FOOD PROCESSING SCIENTIST) Anatomical Region Laterality Modality Body N/A Computed Tomogra phy 10/04/2024 12:4 6 PM FOOD PROCESSING SCIENTIST Impressions 10/04/2024 12:46 PM FOOD PROCESSING SCIENTIST 1. Aortic and coronary artery atherosclerosis. 2. Minimal mosaic attenuation in the lingula and bilateral lower lobe suggestive of atelectasis versus interstitial pulmonary edema. Electronically signed by: Jj Grubbs II, D.O. Narrative 10/04/2024 12:46 PM FOOD PROCESSING SCIENTIST EXAMINATION: Computed tomography of the chest without [...] sult * (ABNORMAL) aPTT (10/04/2024 10:20 AM FOOD PROCESSING SCIENTIST) aPTT 68(H) 28 - 38 sec Comment: Interpretive Data Heparin therapeutic range: 66.0 - 100.0 seconds. Range based on correlation with therapeutic heparin activity range of 0.3 - 0.7 Units/mL. Current interpretive data was last revised on 2023. Blood 10/04/2024 10:2 0 AM FOOD PROCESSING SCIENTIST 10/04/2024 10:36 AM FOOD PROCESSING SCIENTIST us Fatou Schwartz MD LAB BLOOD ORDERABLES Final Res ult NICOLE [address] [address] Department [place] [employer] [place] [address] * X-ray chest 1 view (Portable) (10/04/2024 6:29 AM FOOD PROCESSING SCIENTIST) Anatomical Region Laterality Modality Body, Chest N/A Computed Radiogr aphy 10/04/2024 8:40 AM FOOD PROCESSING SCIENTIST Impressions 10/04/2024 8:40 AM FOOD PROCESSING SCIENTIST No active disease. Electronically signed by: Elena Bower M.D. Narrative 10/04/2024 8:40 AM FOOD PROCESSING SCIENTIST EXAMINATION: XR CHEST 1 VIEW HISTORY: The [...] Result * (ABNORMAL) aPTT (10/04/2024 4:25 AM FOOD PROCESSING SCIENTIST) aPTT 72(H) 28 - 38 sec Comment: Interpretive Data Heparin therapeutic range: 66.0 - 100.0 seconds. Range based on correlation with therapeutic heparin activity range of 0.3 - 0.7 Units/mL. Current interpretive data was last revised on 2023. Blood 10/04/2024 4:25 AM FOOD PROCESSING SCIENTIST 10/04/2024 4:30 AM FOOD PROCESSING SCIENTIST us Fatou Schwartz MD LAB BLOOD ORDERABLES Final Res ult NICOLE [address] [address] Department [place] [address] * eGFR (10/03/2024 9:56 PM FOOD PROCESSING SCIENTIST) eGFR 64 >=60 mL/min/1. 73 m2 Comment: [...] last reviewed 2021. Blood 10/03/2024 9:56 PM FOOD PROCESSING SCIENTIST 10/03/2024 10:01 PM FOOD PROCESSING SCIENTIST Fatou Schwartz MD LAB BLOOD ORDERABLES Final Res ult Performing Organization Address [facility] Co de Phone Number NICOLE RAYGOZA [address] [address] [employer] [place] [address] * aPTT (10/03/2024 9:56 PM FOOD PROCESSING SCIENTIST) aPTT 34 28 - 38 sec Comment: Interpretive Data Heparin therapeutic range: 66.0 - 100.0 seconds. Range based on correlation with therapeutic heparin activity range of 0.3 - 0.7 Units/mL. Current interpretive data was last revised on 2023. Blood 10/03/2024 9:56 PM FOOD PROCESSING SCIENTIST 10/03/2024 10:01 PM FOOD PROCESSING SCIENTIST Fatou Schwartz MD LAB [place]LO[place] [address] [address] [employer] [place] [address] * Protime-INR (10/03/2024 9:56 PM FOOD PROCESSING SCIENTIST) PT 11.9 9.7 - 13.0 sec INR 1.10 0.90 - 1.20 [facility] Comment: Interpretive data Oral anticoagulant therapeutic ranges: Venous thromboembolism prophylaxis or treatment: 2.0-3.0 CARDIOLOGY Standard range: 2.0-3.0 High-intensity range: 2.5-3.5 Refer to indication-specific guidelines for appropriate target ranges for prosthetic heart valve replacement. Current interpretive data was last revised on 2019. Blood 10/03/2024 9:56 PM FOOD PROCESSING SCIENTIST 10/03/2024 10:01 PM FOOD PROCESSING SCIENTIST us Fatou Schwartz MD LAB BLOOD ORDERABLES Final Res ult [facility] [address] [address] [place] [address] * CBC without differential (10/03/2024 9:56 PM FOOD PROCESSING SCIENTIST) Pathologist [facility] WBC 6.2 3.8 - 9.9 K/cumm Hgb 14.4 13.0 - 17.5 g/dL [facility] Hct 42.4 38.9 - 50.3 % [facility] Plt 182 150 - 400 K/cumm [facility] MPV 10.1 9.1 - 12.3 fL [facility] RBC 4.75 4.30 - 5.80 M/cumm [facility] MCV 89.3 81.3 - 96.4 fL [facility] MCH 30.3 27.1 - 33.3 pg [facility] MCHC 34.0 32.3 - 35.7 g/dL [facility] RDW CV 13.0 11.1 - 14.9 % [facility] RDW SD 42.5 35.7 - 48.1 fL [facility] NRBC abs 0.00 0.00 - 0.01 K/cumm [facility] Blood 10/03/2024 9:56 PM FOOD PROCESSING SCIENTIST 10/03/2024 10:01 PM FOOD PROCESSING SCIENTIST Fatou Schwartz MD LAB BLOOD ORDERABLES Final Res ult Performing Organization Address City/[facility]/ZIP Co de Phone Number LORINACE [address] [address] [facility] [place] [employer] [place] [address] * Magnesium (10/03/2024 9:56 PM FOOD PROCESSING SCIENTIST) Magnesium 1.9 1.4 - 2.5 mg/dL Blood 10/03/2024 9:56 PM FOOD PROCESSING SCIENTIST 10/03/2024 10:01 PM FOOD PROCESSING SCIENTIST Fatou Schwartz MD LAB BLOOD ORDERABLES Final Res ult Performing Organization Address [facility] de Phone Number NICOLE [address] [address] [facility] [place] [employer] [place] [address] * (ABNORMAL) Hemoglobin A1c (10/03/2024 9:56 PM FOOD PROCESSING SCIENTIST) Pathologist [facility] Hgb A1C 5.8(H) 4.0 - 5.6 % Estimated Average Glucose 120 mg/dL NICOLE Comment: The ADA recommends reporting an estimated Average Glucose (eAG) with all Hemoglobin A1c results using the equation derived from a study of 507 normal and diabetic adults. Minority populations were underrepresented and children were not included. (Diabetes Care 31:1239-3556, 2008). The eAG is not equivalent to a fasting glucose. Blood 10/03/2024 9:56 PM FOOD PROCESSING SCIENTIST 10/04/2024 10:36 AM FOOD PROCESSING SCIENTIST Migdalia Salcedo NP LAB BLOOD ORDERABLES Final Result Performing Organization Address City/[facility]/ZIP Co de Phone Number LORINACE RAYGOZA [address] [address] [facility] [place] [employer] [place] [address] * Comprehensive metabolic panel (10/03/2024 9:56 PM FOOD PROCESSING SCIENTIST) Sodium 138 135 - 145 mmol/L Potassium, pl 4.0 3.3 - 4.9 mmol/L [facility] Chloride 102 97 - 110 mmol/L [facility] CO2 26 22 - 32 mmol/L [...] Units/L [facility] Blood 10/03/2024 9:56 PM FOOD PROCESSING SCIENTIST 10/03/2024 10:01 PM FOOD PROCESSING SCIENTIST us Fatou Schwartz MD LAB BLOOD ORDERABLES Final Res ult [facility] [address] [address] Department [place] [address] * (ABNORMAL) Urinalysis reflex to microscopic and culture Urine, clean voided (10/03/2024 9:22 PM FOOD PROCESSING SCIENTIST) Color, ur Yellow Yellow Clarity, ur Clear [...] tendency for uric acid stone formation. Source: [facility] Current Interpretive Data was last revised [...] Reflex to microscopic UA will be performed. [facility] Urine, clean voided 10/03/2024 9:22 PM FOOD PROCESSING SCIENTIST 10/03/2024 9:30 PM FOOD PROCESSING SCIENTIST Fatou Schwartz MD LAB MICROBIOLOGY - GENERAL ORD ERABLES Final Result Performing Organization Address [facility] Co de Phone Number LORINCAE RAYGOZA [address] [address] [employer] [place] [address] * (ABNORMAL) Urinalysis, microscopic only (10/03/2024 9:22 PM FOOD PROCESSING SCIENTIST) WBC, ur 11-20(A) 0 - 5 /HPF RBC, ur 0-2 0 - 2 /HPF [facility] Bacteria, ur Trace(A) [facility] Culture Reflex Comment Reflex to urine culture will be performed. [facility] Urine, clean voided 10/03/2024 9:22 PM FOOD PROCESSING SCIENTIST 10/03/2024 9:30 PM FOOD PROCESSING SCIENTIST Fatou Schwartz MD LAB URINE ORDERABLES Final Res ult Performing Organization Address [facility] Co de Phone Number NICOLE RAYGOZA [address] [address] [facility] [place] [address] * (ABNORMAL) Urine culture Urine, clean voided (10/03/2024 9:22 PM FOOD PROCESSING SCIENTIST) Report Final Report: Greater than or equal to 100,000 colonies/mL of Enterobacter aerogenes (.) Comment:Testing performed by : [facility], [address] [facility] [address], [place]., [address] Organism ENTEROBACTER AEROGENES NICOLE RAYGOZA Urine, clean voided 10/03/2024 9:22 PM FOOD PROCESSING SCIENTIST 10/04/2024 12:20 AM FOOD PROCESSING SCIENTIST Narrative NICOLE RAYGOZA - 10/06/2024 6:22 AM FOOD PROCESSING SCIENTIST Urine culture reflexed based upon urinalysis results. Testing performed by [facility] ([phone]) Organism Antibiotic Method Susceptibility Klebsiella (Enterobacter) aerogenes [...] - GENERAL ORD ERABLES Final Result NICOLE [address] [address] Department [place] [address] * Cardiology Document Scan (10/03/2024 4:14 PM FOOD PROCESSING SCIENTIST) Anatomical Region Laterality Modality Other Sherley Herring NP CV CARDIAC SERVICES PROCEDUR ES Final Result * Cardiology Document Scan (10/02/2024 4:12 PM FOOD PROCESSING SCIENTIST) Anatomical Region Laterality Modality Other Sherley Herring NP CV CARDIAC SERVICES PROCEDUR ES Final Result from Last 3 Months Insurance [facility] MEDICARE ADVANTAGE [facility] MEDICARE ADVANTAGE Advance Directives For more information, please contact: [phone] * Full Code (Latest Code Status on File) Date Activated Date Inactivated Comments 10/03/2024 8:28 PM 10/21/2024 4:34 PM Care Teams Underwear Trimmer Relationship Specialty Start Date End Date Jj Collins NP [address] [place] [address] PCP - General Nurse Practitioner 10/02/24
--- OUTSIDE RECORDS SUMMARY | 2024-11-29 12:12 | XMS_ITS | Clinical Summary ---
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 Active clopidogreL (PLAVIX) 75 mg [...] stools 10/16/2024 Coronary artery disease invo lving [place] coronary artery of [place] heart without angina pectoris 10/06/2024 CAD in [place] artery 10/03/2024 Aortic valve stenosis 10/03/2024 Encounters Date Type Department Care Team Description 5 3:00 PM CDT Home Care Visit [facility] [address] [place] [address] Tamara Key RN SN OASIS DISCHARGE 5 11:30 AM CDT Office Visit [facility] Surgery [address] [facility] [address] [place] [address] Reina Duffy NP S/P AVR (aortic valve replacement) (Primary Dx); Coronary artery disease involving [place] coronary artery of [place] heart without angina pectoris; Nonrheumatic aortic valve stenosis 5 8:30 AM CDT Ancillary Procedure [facility] [address] [facility] [address] [place] [phone] Cardiac pacemaker in situ; Atrial fibrillation, unspecified type (HCC); Bradycardia; Tachy-thomas syndrome (HCC) 5 Telephone [facility] Cardiology [address] [place] [address] [address] [place] [phone] Lakeshia Aviles NP 5 1:00 PM CDT Home Care Visit [address] [place] [address] Tamara Key RN SN HOME VISIT 5 Telephone [facility] Cardiology [address] [facility] [address] [place] [phone] Remberto Cerda MD 5 11:00 AM CDT Home Care Visit [address] [place] [address] Tamara Key RN SN HOME VISIT 5 1:00 PM CDT Home Care Visit [address] [place] [address] Tamara Key RN SN HOME VISIT 5 12:00 PM CDT Home Care Visit [address] [place] [address] Tamara Sandoval LPN SN HOME VISIT 5 12:00 PM CDT Home Care Visit [address] [place] [address] Tamara Key RN SN HOME VISIT 5 Orders Only [facility] Cardiology [address] [facility] [address] [place] [address] [place] [phone] Remberto Cerda MD Cardiac pacemaker in situ (Primary Dx); Atrial fibrillation, unspecified type (HCC); Bradycardia; Tachy-thoams syndrome (HCC) 5 Orders Only [place] [employer] [address] [facility] [phone] Monet Vo MA Sinus bradycardia (Primary Dx); Cardiac pacemaker in situ 5 10:34 AM CDT - 5 11:59 PM CDT Hospital Encounter [facility] [address] [place] [address] Discharge Disposition: Discharge to home or self care 5 10:00 AM CDT Home Care Visit [address] [place] [address] Tamara Key RN SN HOME VISIT 5 Home Care Visit [address] [place] [address] Tamara Key RN CARE CONFERENCE 5 Telephone Cardiology Flaca Giles DO 5 Orders Only [facility] Surgery [address] [facility] [address] [place] [phone] Reina Duffy NP 5 1:30 PM CDT Home Care Visit [address] [place] [address] Imani Mcgowan SN OASIS START OF CARE 5 Plan of Care Documentation [place] [address] [address] [place] [address] 5 Telephone [facility] [address] [place] [address] Ravin Branham MA 5 2:31 PM SURVEILLANCE AGENT Anesthesia Event [facility] [address] [place] [address] [phone] Royal Sun MD Eldin, Ali S., MD 5 1:30 PM SURVEILLANCE AGENT - 5 3:35 PM SURVEILLANCE AGENT Surgery [facility] [address] [place] [address] [phone] Teresa Knox MD INSERT/REPLACE DUAL LEAD PACEMAKER (PPM) OR IMPLANTABLE CARDIOVERTER-DEFIBRI LLATOR (ICD) ELECTRODE WO GENERATOR CHANGE [id number] 5 Orders Only [facility] [address] [place] [phone] Nevaeh Sherley Toshia, MARY 5 8:04 AM SURVEILLANCE AGENT Anesthesia Event [facility] [address] [place] [address] Williams Carrillo MD Sextro, [facility], AA 5 8:00 AM SURVEILLANCE AGENT - 5 1:30 PM SURVEILLANCE AGENT Surgery [facility] [address] [place] [address] Guillermo Mayes MD CORONARY ARTERY BYPASS GRAFT X 3 - INTERNAL MAMMARY/SAPHENOUS VEIN GRAFT - LEG 5 2:00 PM SURVEILLANCE AGENT - 5 2:30 PM SURVEILLANCE AGENT Surgery [facility] [address] [place] [address] Flaca Giles DO TRANSESOPHAGEAL ECHOCARDIOGRAM 5 1:55 PM SURVEILLANCE AGENT Anesthesia Event [facility] [address] [place] [address] Royal Sun MD O'Brien, Daniel Robert, AA 5 7:35 PM SURVEILLANCE AGENT - 5 12:34 PM CDT Hospital Encounter [address] [address] Fatou Schwartz MD Munfakh, Nabil A., MD Aortic valve stenosis, etiology of cardiac valve disease unspecified (Primary Dx); Coronary artery disease involving [place] coronary artery of [place] heart without angina pectoris; Nonrheumatic aortic valve stenosis; Dark stools Discharge Disposition: Discharge to home, home health skilled care from Last 3 Months Surgical History Surgery Date Site/Laterality Comments OTHER SURGICAL HISTORY 10/05/2024 [facility] SCROTAL / TESTICULAR CARDIAC ELECTROPHYSIOLOGY PROCEDURE 10/13/2024 Chest/N/A Procedure: INSERT/REPLACE DUAL LEAD PACEMAKER (PPM) OR IMPLANTABLE CARDIOVERTER-DEFIBRILLATOR (ICD) ELECTRODE WO GENERATOR CHANGE [id number]; Surgeon: Teresa Knox MD; Location: EP LAB; Service: Cardiovascular; Laterality: N/A; Medical devices from this surgery are in the Medical Devices section. Medical History Medical History Date Comments Hypothyroidism Hyperlipidemia Hypertension Coronary artery disease Myocardial infarction (HCC) NSTE NE CKD (chronic kidney disease) Aortic stenosis Social [...] materials from doctor or pharmacy Never 11/17/2024 [facility] Utilities Answer Date Recorded In the past 12 months has [facility] [email or web address], oil, or water [employer] threatened to shut off services in your [...] week 10/05/2024 How often do you attend [facility] or restorationism services? Never 10/05/2024 Do you belong to any clubs o r organizations such as yazidism groups, unions, fraternal or athletic groups, or [...] any time in the past 12 m [facility], were you homeless or living in a care home (including now)? No 10/05/2024 Personal Safety Answer Date Recorded Have you ever been in or are you currently in a harmful physical or emotional relationship or is someone making you feel afraid or unsafe? Denies 10/03/2024 Sex and Gender Information Value Date Recorded Sex Assigned at Not on file Legal Sex Male 1:53 PM SURVEILLANCE AGENT Gender Identity Not on file Sexual Orientation [...] 10/21/2025 10/21/2024 Medical Devices Implanted Type Area String Laster Device Identifier Shelf Expiration Date Model / Serial / Lot Medtronic Inc Marrowbone S Mri Surescan 50.8x46.6mm 2 Chamber 7.4mm Pacemaker 22.5gm [id number] - [id number] - [id number] Implanted:Qty: 1 on 10/13/2024 by Teresa Knox MD at [facility] Pacemaker Left: Chest Wall Medtronic Inc 07/06/2025 [id number] / [id number] / [employer] Valve Coronary Aortic Tissue Bioprosthesis Intuity Elite 25mm [id number] - [id number] - [id number] Implanted:Qty: 1 on 10/09/2024 by Guillermo Mayes MD at [facility] Prosthetic Valve N/A: Heart [employer] 03/02/2025 [id number] / [id number] / Medtronic Inc Capsurefix Novus 6.2fr 2mm 58cm Bipolar Screw In Implantable 5076-58 - [id number] - [id number] Implanted:Qty: 1 on 10/13/2024 by Teresa Knox MD at [facility] Left: Chest Medtronic Inc 07/10/2026 [id number] / [id number] [id number] / Medtronic Inc Capsurefix Novus 6.2fr 2mm 45cm Bipolar Screw In Implantable 5076-45 - [id number] - [id number] Implanted:Qty: 1 on 10/13/2024 by Teresa Knox MD at [facility] Left: Chest Med[employer]onic Inc [id number] 03/24/2026 5076-45 / [id number] 1V / Medtronic Inc Tyrx Absorbable Antibacterial Envelope Med 2.7x2.5in [id number] - [id number] Implanted:Qty: 1 on 10/13/2024 by Teresa Knox MD at [facility] Left: Chest Med[employer] Inc 06/29/2025 [id number] / / [id number] Procedures Procedure Name Priority Date/Time Associated Diagnosis [...] CDT ECG 12-LEAD Routine 10/15/2024 1:15 AM SURVEILLANCE AGENT POCT GLUCOSE DEVICE Routine 10/14/2024 8 :35 PM SURVEILLANCE AGENT TRANSTHORACIC ECHO (TTE) COMPLETE W DOPPLER/CF WO CONTRAST Routine 10/14/2024 9:52 AM SURVEILLANCE AGENT POCT GLUCOSE DEVICE Routine 10/14/2024 7 :57 AM SURVEILLANCE AGENT XR CHEST 1 VIEW IP Routine 10/14/2024 6:00 AM SURVEILLANCE AGENT EGFR Routine 10/14/2024 5:20 AM SURVEILLANCE AGENT MAGNESIUM Routine 10/14/2024 5:20 AM SURVEILLANCE AGENT CBC WITHOUT DIFFERENTIAL Routine 10/14/2024 5:20 AM SURVEILLANCE AGENT BASIC METABOLIC PANEL Routine 10/14/2024 5:20 AM SURVEILLANCE AGENT POCT GLUCOSE DEVICE Routine 10/13/2024 8 :21 PM SURVEILLANCE AGENT POCT GLUCOSE DEVICE Routine 10/13/2024 5 :27 PM SURVEILLANCE AGENT XR CHEST 1 VIEW IP Routine 10/13/2024 4:35 PM SURVEILLANCE AGENT ICD LEAD DUAL 2 LEADS PPM OR ICD Routine 10/13/2024 3:51 PM SURVEILLANCE AGENT Aortic valve stenosis, etiology of cardiac valve disease unspecified Coronary artery disease involving [place] coronary artery of [place] heart without angina pectoris POCT GLUCOSE DEVICE Routine 10/13/2024 12:45 PM SURVEILLANCE AGENT ECG 12-LEAD STAT 10/13/2024 11:59 AM SURVEILLANCE AGENT ECG 12-LEAD STAT 10/13/2024 9:36 AM SURVEILLANCE AGENT POCT GLUCOSE DEVICE Routine 10/13/2024 7 :56 AM SURVEILLANCE AGENT XR CHEST 1 VIEW IP Routine 10/13/2024 6:24 AM SURVEILLANCE AGENT EGFR Routine 10/13/2024 5:50 AM SURVEILLANCE AGENT PROTIME-INR Routine 10/13/2024 5:50 AM SURVEILLANCE AGENT APTT Routine 10/13/2024 5:50 AM SURVEILLANCE AGENT MAGNESIUM Routine 10/13/2024 5:50 AM SURVEILLANCE AGENT CBC WITHOUT DIFFERENTIAL Routine 10/13/2024 5:50 AM SURVEILLANCE AGENT BASIC METABOLIC PANEL Routine 10/13/2024 5:50 AM SURVEILLANCE AGENT ECG 12-LEAD Routine 10/12/2024 10:08 PM SURVEILLANCE AGENT POCT GLUCOSE DEVICE Routine 10/12/2024 9 :59 PM SURVEILLANCE AGENT POCT GLUCOSE DEVICE Routine 10/12/2024 9 :27 PM SURVEILLANCE AGENT POCT GLUCOSE DEVICE Routine 10/12/2024 5 :44 PM SURVEILLANCE AGENT POCT GLUCOSE DEVICE Routine 10/12/2024 1 :00 PM SURVEILLANCE AGENT ECG 12-LEAD Routine 10/12/2024 10:04 AM SURVEILLANCE AGENT POCT GLUCOSE DEVICE Routine 10/12/2024 7 :53 AM SURVEILLANCE AGENT XR CHEST 1 VIEW IP Routine 10/12/2024 6:11 AM SURVEILLANCE AGENT EGFR Routine 10/12/2024 4:30 AM SURVEILLANCE AGENT MAGNESIUM Routine 10/12/2024 4:30 AM SURVEILLANCE AGENT CBC WITHOUT DIFFERENTIAL Routine 10/12/2024 4:30 AM SURVEILLANCE AGENT BASIC METABOLIC PANEL Routine 10/12/2024 4:30 AM SURVEILLANCE AGENT POCT GLUCOSE DEVICE Routine 10/11/2024 8 :46 PM SURVEILLANCE AGENT POCT GLUCOSE DEVICE Routine 10/11/2024 5 :13 PM SURVEILLANCE AGENT POCT GLUCOSE DEVICE Routine 10/11/2024 12:12 PM SURVEILLANCE AGENT POCT GLUCOSE DEVICE Routine 10/11/2024 8 :24 AM SURVEILLANCE AGENT CRITICAL CARE Routine 10/11/2024 6:32 AM SURVEILLANCE AGENT Coronary artery disease involving [place] coronary artery of [place] heart without angina pectoris XR CHEST 1 VIEW IP Routine 10/11/2024 5:59 AM SURVEILLANCE AGENT OXYHEMOGLOBIN, PULMONARY ARTERY Routine 10/11/2024 5:30 AM SURVEILLANCE AGENT EGFR Routine 10/11/2024 5:22 AM SURVEILLANCE AGENT CALCIUM,IONIZED, WHOLE BLOOD Routine 10/11/2024 5:22 AM SURVEILLANCE AGENT MAGNESIUM Routine 10/11/2024 5:22 AM SURVEILLANCE AGENT CBC WITHOUT DIFFERENTIAL Routine 10/11/2024 5:22 AM SURVEILLANCE AGENT BASIC METABOLIC PANEL Routine 10/11/2024 5:22 AM SURVEILLANCE AGENT PHOSPHORUS Routine 10/11/2024 5:22 AM SURVEILLANCE AGENT POCT GLUCOSE DEVICE Routine 10/11/2024 5 :20 AM SURVEILLANCE AGENT POCT GLUCOSE DEVICE Routine 10/11/2024 4 :26 AM SURVEILLANCE AGENT POCT GLUCOSE DEVICE Routine 10/11/2024 3 :23 AM SURVEILLANCE AGENT POCT GLUCOSE DEVICE Routine 10/11/2024 2 :26 AM SURVEILLANCE AGENT POCT GLUCOSE DEVICE Routine 10/11/2024 1 :28 AM SURVEILLANCE AGENT POCT GLUCOSE DEVICE Routine 10/11/2024 12:27 AM SURVEILLANCE AGENT POCT GLUCOSE DEVICE Routine 10/10/2024 11:26 PM SURVEILLANCE AGENT POCT GLUCOSE DEVICE Routine 10/10/2024 10:27 PM SURVEILLANCE AGENT POCT GLUCOSE DEVICE Routine 10/10/2024 9 :26 PM SURVEILLANCE AGENT CRITICAL CARE Routine 10/10/2024 7:59 PM SURVEILLANCE AGENT Aortic valve stenosis, etiology of cardiac valve disease unspecified POCT GLUCOSE DEVICE Routine 10/10/2024 7 :12 PM SURVEILLANCE AGENT POCT GLUCOSE DEVICE Routine 10/10/2024 6 :06 PM SURVEILLANCE AGENT POCT GLUCOSE DEVICE Routine 10/10/2024 5 :02 PM SURVEILLANCE AGENT POCT GLUCOSE DEVICE Routine 10/10/2024 4 :06 PM SURVEILLANCE AGENT POCT GLUCOSE DEVICE Routine 10/10/2024 3 :02 PM SURVEILLANCE AGENT POCT GLUCOSE DEVICE Routine 10/10/2024 1 :58 PM SURVEILLANCE AGENT EGFR Routine 10/10/2024 1:54 PM SURVEILLANCE AGENT DIFFERENTIAL AUTO Routine 10/10/2024 1:5 4 PM SURVEILLANCE AGENT CALCIUM,IONIZED, WHOLE BLOOD Routine 10/10/2024 1:54 PM SURVEILLANCE AGENT MAGNESIUM Routine 10/10/2024 1:54 PM SURVEILLANCE AGENT BASIC METABOLIC PANEL Routine 10/10/2024 1:54 PM SURVEILLANCE AGENT CBC WITH AUTO DIFFERENTIAL Routine 10/10/2024 1:54 PM SURVEILLANCE AGENT POCT GLUCOSE DEVICE Routine 10/10/2024 12:58 PM SURVEILLANCE AGENT URINALYSIS AND REFLEX TO MICROSCOPIC STAT 10/10/2024 12:27 PM SURVEILLANCE AGENT POCT GLUCOSE DEVICE Routine 10/10/2024 11:53 AM SURVEILLANCE AGENT POCT GLUCOSE DEVICE Routine 10/10/2024 10:48 AM SURVEILLANCE AGENT POCT GLUCOSE DEVICE Routine 10/10/2024 9 :48 AM SURVEILLANCE AGENT POCT GLUCOSE DEVICE Routine 10/10/2024 8 :16 AM SURVEILLANCE AGENT ECG 12-LEAD STAT 10/10/2024 7:57 AM SURVEILLANCE AGENT EXTUBATION Routine 10/10/2024 7:12 AM SURVEILLANCE AGENT BLOOD GAS, ARTERIAL STAT 10/10/2024 6 :52 AM SURVEILLANCE AGENT CRITICAL CARE Routine 10/10/2024 6:41 AM SURVEILLANCE AGENT Aortic valve stenosis, etiology of cardiac valve disease unspecified Coronary artery disease involving [place] coronary artery of [place] heart without angina pectoris Nonrheumatic aortic valve stenosis POCT GLUCOSE DEVICE Routine 10/10/2024 6 :10 AM SURVEILLANCE AGENT XR CHEST 1 VIEW IP Routine 10/10/2024 5:55 AM SURVEILLANCE AGENT POCT GLUCOSE DEVICE Routine 10/10/2024 5 :15 AM SURVEILLANCE AGENT OXYHEMOGLOBIN, PULMONARY ARTERY Routine 10/10/2024 2:34 AM SURVEILLANCE AGENT EGFR Routine 10/10/2024 2:27 AM SURVEILLANCE AGENT DIFFERENTIAL AUTO Routine 10/10/2024 2:2 7 AM SURVEILLANCE AGENT HEPATIC FUNCTION PANEL Routine 2:27 AM SURVEILLANCE AGENT VITAMIN D 25 HYDROXY Routine 10/10/2024 2:27 AM SURVEILLANCE AGENT LIPID PANEL Routine 10/10/2024 2:27 AM SURVEILLANCE AGENT THYROID FUNCTION CASCADE Routine 10/10/2024 2:27 AM SURVEILLANCE AGENT PHOSPHORUS Routine 10/10/2024 2:27 AM SURVEILLANCE AGENT MAGNESIUM Routine 10/10/2024 2:27 AM SURVEILLANCE AGENT BASIC METABOLIC PANEL Routine 10/10/2024 2:27 AM SURVEILLANCE AGENT CBC WITH AUTO DIFFERENTIAL Routine 10/10/2024 2:27 AM SURVEILLANCE AGENT CALCIUM,IONIZED, WHOLE BLOOD Routine 10/10/2024 2:21 AM SURVEILLANCE AGENT BLOOD GAS, ARTERIAL Routine 10/10/2024 2 :21 AM SURVEILLANCE AGENT POCT GLUCOSE DEVICE Routine 10/09/2024 11:11 PM SURVEILLANCE AGENT BLOOD GAS, ARTERIAL Timed 10/09/2024 9 :50 PM SURVEILLANCE AGENT CRITICAL CARE Routine 10/09/2024 8:31 PM SURVEILLANCE AGENT Aortic valve stenosis, etiology of cardiac valve disease unspecified EGFR STAT 10/09/2024 8:23 PM SURVEILLANCE AGENT DIFFERENTIAL AUTO STAT 10/09/2024 8:2 3 PM SURVEILLANCE AGENT BLOOD GAS, ARTERIAL STAT 10/09/2024 8 :23 PM SURVEILLANCE AGENT BASIC METABOLIC PANEL STAT 10/09/2024 8:23 PM SURVEILLANCE AGENT FIBRINOGEN STAT 10/09/2024 8:23 PM SURVEILLANCE AGENT PROTIME-INR STAT 10/09/2024 8:23 PM SURVEILLANCE AGENT MAGNESIUM Routine 10/09/2024 8:23 PM SURVEILLANCE AGENT CALCIUM,IONIZED, WHOLE BLOOD STAT 10/09/2024 8:23 PM SURVEILLANCE AGENT CBC WITH AUTO DIFFERENTIAL STAT 10/09/2024 8:23 PM SURVEILLANCE AGENT XR CHEST 1 VIEW Timed 10/09/2024 8:19 PM SURVEILLANCE AGENT POCT GLUCOSE DEVICE Routine 10/09/2024 7 :06 PM SURVEILLANCE AGENT TRANSFUSE PLATELETS Timed 10/09/2024 6 :51 PM SURVEILLANCE AGENT TRANSFUSE CRYOPRECIPITATE (POOLED UNITS) Timed 10/09/2024 6:44 PM SURVEILLANCE AGENT TRANSFUSE CRYOPRECIPITATE (POOLED UNITS) Timed 10/09/2024 5:57 PM SURVEILLANCE AGENT CRITICAL CARE Routine 10/09/2024 5:28 PM SURVEILLANCE AGENT Aortic valve stenosis, etiology of cardiac valve disease unspecified Coronary artery disease involving [place] coronary artery of [place] heart without angina pectoris TRANSFUSE PLATELETS Timed 10/09/2024 5 :24 PM SURVEILLANCE AGENT POCT GLUCOSE DEVICE Routine 10/09/2024 5 :23 PM SURVEILLANCE AGENT PREPARE CRYOPRECIPITATE (POOLED UNITS) STAT 10/09/2024 5:10 PM SURVEILLANCE AGENT XR CHEST 1 VIEW Critical/Life-T hreatening 10/09/2024 5:05 PM SURVEILLANCE AGENT EGFR STAT 10/09/2024 4:25 PM SURVEILLANCE AGENT FIBRINOGEN Add-On 10/09/2024 4:25 PM SURVEILLANCE AGENT PHOSPHORUS Add-On 10/09/2024 4:25 PM SURVEILLANCE AGENT MAGNESIUM STAT 10/09/2024 4:25 PM SURVEILLANCE AGENT CALCIUM,IONIZED, WHOLE BLOOD STAT 10/09/2024 4:25 PM SURVEILLANCE AGENT APTT STAT 10/09/2024 4:25 PM SURVEILLANCE AGENT PROTIME-INR STAT 10/09/2024 4:25 PM SURVEILLANCE AGENT CBC WITHOUT DIFFERENTIAL Timed 10/09/2024 4:25 PM SURVEILLANCE AGENT BLOOD GAS, ARTERIAL Timed 10/09/2024 4 :25 PM SURVEILLANCE AGENT BASIC METABOLIC PANEL STAT 10/09/2024 4:25 PM SURVEILLANCE AGENT POCT GLUCOSE DEVICE Routine 10/09/2024 4 :07 PM SURVEILLANCE AGENT PREPARE PLATELETS STAT 10/09/2024 3:3 7 PM SURVEILLANCE AGENT POCT ACTIVATED CLOTTING TIME, HIGH RANGE Routine 10/09/2024 3:23 PM SURVEILLANCE AGENT POC BLOOD GAS AND CHEMISTRIES, ARTERIAL Routine 10/09/2024 3:18 PM SURVEILLANCE AGENT APTT STAT 10/09/2024 3:00 PM SURVEILLANCE AGENT PLATELET COUNT Routine 10/09/2024 3:00 PM SURVEILLANCE AGENT PROTIME-INR STAT 10/09/2024 3:00 PM SURVEILLANCE AGENT FIBRINOGEN STAT 10/09/2024 3:00 PM SURVEILLANCE AGENT TRANSFUSE PLATELETS Timed 10/09/2024 2 :38 PM SURVEILLANCE AGENT POC BLOOD GAS AND CHEMISTRIES, ARTERIAL Routine 10/09/2024 2:09 PM SURVEILLANCE AGENT TRANSFUSE PLASMA Timed 10/09/2024 2:03 PM SURVEILLANCE AGENT POCT ACTIVATED CLOTTING TIME, HIGH RANGE Routine 10/09/2024 2:03 PM SURVEILLANCE AGENT TRANSFUSE PLATELETS Timed 10/09/2024 2 :00 PM SURVEILLANCE AGENT POC BLOOD GAS AND CHEMISTRIES, ARTERIAL Routine 10/09/2024 1:34 PM SURVEILLANCE AGENT POCT ACTIVATED CLOTTING TIME, HIGH RANGE Routine 10/09/2024 1:31 PM SURVEILLANCE AGENT POC BLOOD GAS AND CHEMISTRIES, ARTERIAL Routine 10/09/2024 1:08 PM SURVEILLANCE AGENT POCT ACTIVATED CLOTTING TIME, HIGH RANGE Routine 10/09/2024 1:06 PM SURVEILLANCE AGENT PLATELET COUNT STAT 10/09/2024 1:05 PM SURVEILLANCE AGENT POC BLOOD GAS AND CHEMISTRIES, ARTERIAL Routine 10/09/2024 12:31 PM SURVEILLANCE AGENT POCT ACTIVATED CLOTTING TIME, HIGH RANGE Routine 10/09/2024 12:29 PM SURVEILLANCE AGENT POC BLOOD GAS AND CHEMISTRIES, ARTERIAL Routine 10/09/2024 11:59 AM SURVEILLANCE AGENT POCT ACTIVATED CLOTTING TIME, HIGH RANGE Routine 10/09/2024 11:57 AM SURVEILLANCE AGENT POC BLOOD GAS AND CHEMISTRIES, ARTERIAL Routine 10/09/2024 11:29 AM SURVEILLANCE AGENT POCT ACTIVATED CLOTTING TIME, HIGH RANGE Routine 10/09/2024 11:27 AM SURVEILLANCE AGENT POC BLOOD GAS AND CHEMISTRIES, ARTERIAL Routine 10/09/2024 10:55 AM SURVEILLANCE AGENT POCT ACTIVATED CLOTTING TIME, HIGH RANGE Routine 10/09/2024 10:53 AM SURVEILLANCE AGENT SURGICAL PATHOLOGY Routine 10/09/2024 10:29 AM SURVEILLANCE AGENT Coronary artery disease involving [place] coronary artery of [place] heart without angina pectoris Nonrheumatic aortic valve stenosis POC BLOOD GAS AND CHEMISTRIES, ARTERIAL Routine 10/09/2024 10:00 AM SURVEILLANCE AGENT POCT ACTIVATED CLOTTING TIME, HIGH RANGE Routine 10/09/2024 9:54 AM SURVEILLANCE AGENT ANESTHESIA CENTRAL VENOUS LINE PLACEMENT Routine 10/09/2024 9:32 AM SURVEILLANCE AGENT ANESTHESIA CENTRAL VENOUS LINE PLACEMENT Routine 10/09/2024 9:32 AM SURVEILLANCE AGENT ANESTHESIA ARTERIAL LINE PLACEMENT Routine 10/09/2024 9:23 AM SURVEILLANCE AGENT ANESTHESIA GENEVA Routine 10/09/2024 9:18 AM SURVEILLANCE AGENT HI AN ELECTIVE ENDOTRACHEAL AIRWAY Routine 10/09/2024 9:07 AM SURVEILLANCE AGENT POC BLOOD GAS AND CHEMISTRIES, ARTERIAL Routine 10/09/2024 8:49 AM SURVEILLANCE AGENT POCT ACTIVATED CLOTTING TIME, HIGH RANGE Routine 10/09/2024 8:46 AM SURVEILLANCE AGENT REPLACEMENT AORTIC VALVE 10/09/2024 8:04 AM SURVEILLANCE AGENT Coronary artery disease involving [place] coronary artery of [place] heart without angina pectoris Nonrheumatic aortic valve stenosis CORONARY ARTERY BYPASS GRAFT - INTERNAL MAMMARY/SAPHENOUS VEIN GRAFT - LEG 10/09/2024 8:04 AM SURVEILLANCE AGENT Coronary artery disease involving [place] coronary artery of [place] heart without angina pectoris Nonrheumatic aortic valve stenosis APTT Timed 10/09/2024 4:30 AM SURVEILLANCE AGENT CBC WITHOUT DIFFERENTIAL Timed 10/09/2024 4:30 AM SURVEILLANCE AGENT APTT Timed 10/08/2024 6:57 PM SURVEILLANCE AGENT APTT STAT 10/08/2024 12:52 PM SURVEILLANCE AGENT DIFFERENTIAL AUTO Routine 10/08/2024 11:35 AM SURVEILLANCE AGENT B CHECK SAMPLE STAT 10/08/2024 11:35 AM SURVEILLANCE AGENT TYPE AND SCREEN Timed 10/08/2024 11:35 AM SURVEILLANCE AGENT CBC WITH AUTO DIFFERENTIAL Routine 10/08/2024 11:35 AM SURVEILLANCE AGENT APTT Timed 10/08/2024 11:35 AM SURVEILLANCE AGENT PREPARE PLASMA STAT 10/08/2024 10:57 AM SURVEILLANCE AGENT PREPARE PLATELETS STAT 10/08/2024 10:57 AM SURVEILLANCE AGENT PREPARE RBC STAT 10/08/2024 10:57 AM SURVEILLANCE AGENT APTT Routine 10/08/2024 3:57 AM SURVEILLANCE AGENT APTT Timed 10/07/2024 7:05 AM SURVEILLANCE AGENT XR CHEST 1 VIEW IP Routine 10/06/2024 9:13 AM SURVEILLANCE AGENT APTT Routine 10/06/2024 4:53 AM SURVEILLANCE AGENT CBC WITHOUT DIFFERENTIAL Timed 10/06/2024 12:10 AM SURVEILLANCE AGENT RESPIRATORY PATHOGEN PANEL Routine 10/05/2024 3:21 PM SURVEILLANCE AGENT TRANSESOPHAGEAL ECHO (GENEVA) W DOPPLER/CF WO CONTRAST Routine 10/05/2024 2:29 PM SURVEILLANCE AGENT TRANSESOPHAGEAL ECHOCARDIOGRAM 10/05/2024 1:55 PM SURVEILLANCE AGENT Aortic valve stenosis, etiology of cardiac valve disease unspecified EGFR Routine 10/05/2024 12:55 PM SURVEILLANCE AGENT DIFFERENTIAL AUTO Routine 10/05/2024 12:55 PM SURVEILLANCE AGENT BASIC METABOLIC PANEL Routine 10/05/2024 12:55 PM SURVEILLANCE AGENT CBC WITH AUTO DIFFERENTIAL Routine 10/05/2024 12:55 PM SURVEILLANCE AGENT APTT Routine 10/05/2024 3:14 AM SURVEILLANCE AGENT US CAROTIDS DUPLEX BILATERAL IP Routine 10/04/2024 3:[address] CHEST WO CONTRAST IP Routine 10/04/2024 11:54 AM SURVEILLANCE AGENT APTT Timed 10/04/2024 10:20 AM SURVEILLANCE AGENT XR CHEST 1 VIEW IP Routine 10/04/2024 6:29 AM SURVEILLANCE AGENT APTT Timed 10/04/2024 4:25 AM SURVEILLANCE AGENT HEMOGLOBIN A1C Add-On 10/03/2024 9:56 PM SURVEILLANCE AGENT EGFR Routine 10/03/2024 9:56 PM SURVEILLANCE AGENT APTT Routine 10/03/2024 9:56 PM SURVEILLANCE AGENT PROTIME-INR Routine 10/03/2024 9:56 PM SURVEILLANCE AGENT CBC WITHOUT DIFFERENTIAL Routine 10/03/2024 9:56 PM SURVEILLANCE AGENT MAGNESIUM Routine 10/03/2024 9:56 PM SURVEILLANCE AGENT COMPREHENSIVE METABOLIC PANEL Routine 10/03/2024 9:56 PM SURVEILLANCE AGENT URINALYSIS, MICROSCOPIC ONLY Routine 10/03/2024 9:22 PM SURVEILLANCE AGENT URINE CULTURE Routine 10/03/2024 9:22 PM SURVEILLANCE AGENT URINALYSIS AND REFLEX TO MICROSCOPIC AND CULTURE Routine 10/03/2024 9:22 PM SURVEILLANCE AGENT CARDIOLOGY DOCUMENT SCAN Routine 10/03/2024 4:14 PM SURVEILLANCE AGENT CARDIOLOGY DOCUMENT SCAN Routine 10/02/2024 4:12 PM SURVEILLANCE AGENT from Last 3 Months Results * DEVICE CHECK - IN OFFICE (11/15/2024 8:03 AM CDT) Anatomical Region Laterality Modality Other Narrative 11/16/2024 8:26 AM CDT [employer] Marrowbone Dual Pacemaker. Dx; Tachy/Thomas, Afib, Pauses. DOI 10/13/2024-Abilio. [facility] Supervising MD: Dr. Cerda. Office AAI<> DDD Pacemaker evaluation demonstrated appropriate device function. Left pectoral incision well approximated without signs of infection noted. Battery function: 3.18 V, 14.6 years remaining battery life to [place]. Appropriate lead measurements noted. Presenting rhythm- VS (SR). 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 Five Atrial high rate episodes noted, [...] LAB BLOOD ORDERABLES Final Res ult NICOLE [facility] Department [place] [address] * (ABNORMAL) eGFR (10/25/2024 10:34 AM CDT) [...] Unknown LAB BLOOD ORDERABLES Final Res ult [facility] Department [place] [address] * (ABNORMAL) Differential, auto (10/25/2024 10:34 AM CDT) Neutrophil abs 8.2(H) 1.5 - 6.5 K/cumm Imm gran abs 0.1 0.0 - 0.1 K/cumm [facility] Lymphocyte abs 0.9 0.8 - 3.3 K/cumm [facility] Monocyte abs 0.7 0.2 - 0.8 K/cumm [facility] Eosinophil abs 0.1 0.0 - 0.5 K/cumm [facility] Basophil abs 0.1 0.0 - 0.1 K/cumm [facility] Neutrophil pct 81.6 % [facility] Comment: Interpretive Data Percent cell count reference ranges are not reported, since discordance with absolute values may lead to misinterpretation of CBC data. Current Interpretive Data was last revised on 2017. Imm gran pct 0.6 % [facility] Comment: Interpretive Data Percent cell count reference ranges are not reported, since discordance with absolute values may lead to misinterpretation of CBC data. Current Interpretive Data was last revised on 2017. Lymphocyte pct 9.0 % [facility] Comment: Interpretive Data Percent cell count reference ranges are not reported, since discordance with absolute values may lead to misinterpretation of CBC data. Current Interpretive Data was last revised on 2017. Monocyte pct 6.7 % [facility] Comment: Interpretive Data Percent cell count reference ranges are not reported, since discordance with absolute values may lead to misinterpretation of CBC data. Current Interpretive Data was last revised on 2017. Eosinophil pct 1.4 % [facility] Comment: Interpretive Data Percent cell count reference ranges are not reported, since discordance with absolute values may lead to misinterpretation of CBC data. Current Interpretive Data was last revised on 2017. Basophil pct 0.7 % [facility] Comment: Interpretive Data Percent cell count reference ranges are not reported, since discordance with absolute values may lead to misinterpretation of CBC data. Current Interpretive Data was last revised on 2017. Blood 10/25/2024 10:3 4 AM CDT 10/25/2024 1:31 PM CDT us Notinfile Unknown LAB BLOOD ORDERABLES Final Res ult Performing Organization Address [facility] de Phone Number [facility] Department [place] [address] * (ABNORMAL) Basic metabolic panel without glucose (10/25/2024 10:34 AM CDT) Sodium 135 135 - 145 mmol/L Potassium, pl 3.5 3.3 - 4.9 mmol/L [facility] Chloride 95(L) 97 - 110 mmol/L [facility] CO2 30 22 - 32 mmol/L [facility] Anion gap 10 2 - 15 mmol/L [facility] BUN 17 6 - 25 mg/dL [facility] Creatinine 1.45(H) 0.80 - 1.30 mg/dL [facility] Calcium 8.2(L) 8.5 - 10.3 mg/dL [facility] Blood 10/25/2024 10:3 4 AM CDT 10/25/2024 1:31 PM CDT us Notinfile Unknown LAB BLOOD ORDERABLES Final Res ult Performing Organization Address [facility] de Phone Number [facility] Department [place] [address] * (ABNORMAL) CBC with auto differential (10/25/2024 10:34 AM CDT) [facility] WBC 10.0(H) 3.8 - 9.9 K/cumm Hgb 11.7(L) 13.0 - 17.5 g/dL [facility] Hct 36.6(L) 38.9 - 50.3 % [facility] Plt 192 150 - 400 K/cumm [facility] MPV 11.4 9.1 - 12.3 fL [facility] RBC 3.95(L) 4.30 - 5.80 M/cumm [facility] MCV 92.7 81.3 - 96.4 fL [facility] MCH 29.6 27.1 - 33.3 pg [facility] MCHC 32.0(L) 32.3 - 35.7 g/dL [facility] RDW CV 16.0(H) 11.1 - 14.9 % [facility] RDW SD 51.1(H) 35.7 - 48.1 fL [facility] NRBC abs 0.00 0.00 - 0.01 K/cumm [facility] Blood 10/25/2024 10:3 4 AM CDT 10/25/2024 1:31 PM CDT us Notinfile Unknown LAB BLOOD ORDERABLES Final Res ult [facility] Department [place] [address] * eGFR (10/21/2024 8:38 AM CDT) [facility] eGFR 61 >=60 mL/min/1. 73 m2 Comment: [...] MD LAB BLOOD ORDERABLES Final R esult [facility] [id number] [address] Department [place] [address] * (ABNORMAL) CBC without differential (10/21/2024 8:38 AM CDT) WBC 9.2 3.8 - 9.9 K/cumm Hgb 11.5(L) 13.0 - 17.5 g/dL [facility] Hct 36.8(L) 38.9 - 50.3 % [facility] Plt 126(L) 150 - 400 K/cumm [facility] MPV 11.4 9.1 - 12.3 fL [facility] RBC 3.83(L) 4.30 - 5.80 M/cumm [facility] MCV 96.1 81.3 - 96.4 fL [facility] MCH 30.0 27.1 - 33.3 pg [facility] MCHC 31.3(L) 32.3 - 35.7 g/dL [facility] RDW CV 16.6(H) 11.1 - 14.9 % [facility] RDW SD 51.6(H) 35.7 - 48.1 fL [facility] NRBC abs 0.00 0.00 - 0.01 K/cumm [facility] Blood 10/21/2024 8:38 AM CDT 10/21/2024 9:15 AM CDT Guillermo Mayes MD LAB BLOOD ORDERABLES Final R esult Performing Organization Address City/[facility]/ZIP Co de Phone Number NICOLE RAYGOZA [address] Jose Manuel [facility] [place] [address] * Phosphorus (10/21/2024 8:38 AM CDT) Phosphorus, pl 2.4 2.3 - 4.5 mg/dL Blood 10/21/2024 8:38 AM CDT 10/21/2024 9:15 AM CDT Guillermo Mayes MD LAB BLOOD ORDERABLES Final R esult Performing Organization Address [facility] Co de Phone Number NICOLE RAYGOZA [address] [address] [place] [address] * Magnesium (10/21/2024 8:38 AM CDT) Magnesium 2.2 1.4 - 2.5 mg/dL Blood 10/21/2024 8:38 AM CDT 10/21/2024 9:15 AM CDT Guillermo Mayes MD LAB BLOOD ORDERABLES [facility] Performing Organization Address [facility] Co de Phone Number NICOLE RAYGOZA [address] [address] [place] [address] * (ABNORMAL) Basic metabolic panel (10/21/2024 8:38 [...] LAB BLOOD ORDERABLES Final R esult NICOLE [address] [address] Department [place] [address] * XR Chest 1 View - Portable [...] Khadar Griffith M.D. us Guillermo Mayes MD [facility] US PROCEDURES Final Resu lt * (ABNORMAL) eGFR (10/20/2024 6:44 AM CDT) Pathologist [facility] eGFR 56(L) >=60 mL/min/1. 73 m2 Comment: [...] NP LAB BLOOD ORDERABLES Fin al Result [facility] [address] [address] Liu Department [place] [address] * (ABNORMAL) CBC without differential (10/20/2024 6:44 AM CDT) Pathologist [facility] WBC 9.5 3.8 - 9.9 K/cumm Hgb 10.8(L) 13.0 - 17.5 g/dL [facility] Hct 33.7(L) 38.9 - 50.3 % [facility] Plt 141(L) 150 - 400 K/cumm [facility] MPV 11.4 9.1 - 12.3 fL [facility] RBC 3.67(L) 4.30 - 5.80 M/cumm [facility] MCV 91.8 81.3 - 96.4 fL [facility] MCH 29.4 27.1 - 33.3 pg [facility] [...] ORDERABLES Final R esult Performing Organization Address City/[facility]/ZIP Co de Phone Number NICOLE RAYGOZA [address] [address] Manuel [facility] [place], [place] [id number] * Phosphorus (10/20/2024 6:44 AM CDT) Phosphorus, pl 2.3 2.3 - 4.5 mg/dL Blood 10/20/2024 6:44 AM CDT 10/20/2024 7:00 AM CDT Guillermo Mayes MD LAB BLOOD ORDERABLES Final R esult Performing Organization Address [facility] Co de Phone Number NICOLE RAYGOZA [address] [address] [place] [address] * Magnesium (10/20/2024 6:44 AM CDT) Magnesium 2.2 1.4 - 2.5 mg/dL Blood 10/20/2024 6:44 AM CDT 10/20/2024 7:00 AM CDT Guillermo Mayes MD LAB BLOOD ORDERABLES Final R esult Performing Organization Address City/[facility]/ZIP Co de Phone Number NICOLE RAYGOZA [address] [address] [place] [address] * (ABNORMAL) Basic metabolic panel (10/20/2024 6:44 AM CDT) Sodium 139 135 - 145 mmol/L Potassium, pl 4.1 3.3 - 4.9 mmol/L [facility] Chloride 103 97 - 110 mmol/L [facility] CO2 26 22 - 32 mmol/L [facility] Anion gap 10 2 - 15 mmol/L [facility] BUN 40(H) 6 - 25 mg/dL [facility] Creatinine 1.29 0.80 - 1.30 mg/dL [facility] Comment:Icteric sample, test results may be affected. Glucose 113 70 - 199 mg/dL [facility] Comment: Interpretive Data Fasting glucose >/= [...] 2022. Calcium 8.3(L) 8.5 - 10.3 mg/dL [facility] Blood 10/20/2024 6:44 AM CDT 10/20/2024 7:00 AM CDT us Guillermo Mayes MD LAB BLOOD ORDERABLES Final R esult [facility] [address] [address] Department [place] [address] * XR Chest 1 View - Portable [...] MD LAB BLOOD ORDERABLES Final R esult [facility] [address] [facility] Department [place] [address] * (ABNORMAL) eGFR (10/19/2024 1:29 [...] LAB BLOOD ORDERABLES Final R esult NICOLE [address] [address] Department [place] [address] * (ABNORMAL) CBC without differential (10/19/2024 1:29 PM CDT) WBC 10.8(H) 3.8 - 9.9 K/cumm Hgb 11.4(L) 13.0 - 17.5 g/dL [facility] Hct 33.8(L) 38.9 - 50.3 % [facility] Plt 153 150 - 400 K/cumm [facility] MPV 11.5 9.1 - 12.3 fL [facility] RBC 3.68(L) 4.30 - 5.80 M/cumm [facility] MCV 91.8 81.3 - 96.4 fL [facility] MCH 31.0 27.1 - 33.3 pg [facility] MCHC 33.7 32.3 - 35.7 g/dL [facility] RDW CV 16.3(H) 11.1 - 14.9 % [facility] RDW SD 48.6(H) 35.7 - 48.1 fL [facility] NRBC abs 0.10(H) 0.00 - 0.01 K/cumm [facility] Blood 10/19/2024 1:29 PM CDT 10/19/2024 2:00 PM CDT us Guillermo Mayes MD LAB BLOOD ORDERABLES Final R esult Performing Organization Address City/[facility]/ZIP Co de Phone Number NICOLE RAYGOZA [address] [place] [address] * Magnesium (10/19/2024 1:29 PM CDT) Pathologist [facility] Magnesium 2.1 1.4 - 2.5 mg/dL Blood 10/19/2024 1:29 PM CDT 10/19/2024 2:00 PM CDT Guillermo Mayes MD LAB BLOOD ORDERABLES Final [facility] Performing Organization Address [facility] Co de Phone Number NICOLE RAYGOZA [address] [place] [address] * (ABNORMAL) Basic metabolic panel (10/19/2024 1:29 PM CDT) [facility] Sodium 139 135 - 145 mmol/L Potassium, pl 3.8 3.3 - 4.9 mmol/L [facility] Chloride 102 97 - 110 mmol/L [facility] CO2 27 22 - 32 mmol/L [facility] Anion gap 10 2 - 15 mmol/L [facility] BUN 46(H) 6 - 25 mg/dL [facility] Creatinine 1.45(H) 0.80 - 1.30 mg/dL [facility] Comment:Icteric sample, test results may be affected. Glucose 134 70 - 199 mg/dL [facility] Comment: Interpretive Data Fasting glucose >/= [...] 2022. Calcium 8.3(L) 8.5 - 10.3 mg/dL [facility] Blood 10/19/2024 1:29 PM CDT 10/19/2024 2:00 PM CDT Guillermo Mayes MD LAB BLOOD ORDERABLES Final R esult Performing Organization Address [facility] Co de Phone Number NICOLE RAYGOZA [address] [address] [place] [address] * Hepatitis panel, acute Blood (10/19/2024 9:29 AM CDT) Hep A IgM Nonreactive Nonreactive Comment: Interpretive Data: If Hep A IgM Ab is reported as Equivocal, a new sample should be drawn in two weeks for testing. Current interpretive data was last revised on 19. Hep B core IgM Nonreactive Nonreactive [facility] Comment: Interpretive Data If HepB Core IgM Ab is reported as Equivocal, a new sample should be drawn in two weeks for testing. Current interpretive data was last revised on 19. Hep C Ab Nonreactive Nonreactive [facility] Comment: Interpretive Data Nonreactive: Antibodies to [...] last revised on 2019. HepBsAg Nonreactive Nonreactive [facility] Blood 10/19/2024 9:29 AM CDT 10/19/2024 9:54 AM CDT us Guillermo Mayes MD LAB MICROBIOLOGY - GENERAL O RDERABLES Final Result Performing Organization Address City/[facility]/ZIP Co de Phone Number NICOLE RAYGOZA [address] [address] [place] [address] * (ABNORMAL) Protime-INR (10/19/2024 9:29 AM CDT) [...] ORDERABLES Final R esult Performing Organization Address [facility] Co de Phone Number NICOLE RAYGOZA [address] [address] [place] [address] * (ABNORMAL) Hepatic function panel (10/19/2024 9:29 AM CDT) Bilirubin, total 2.5(H) 0.1 - 1.2 mg/dL Bilirubin, direct 0.4(H) 0.1 - 0.3 mg/dL [facility] Protein, pl 5.5(L) 6.5 - 8.5 g/dL [facility] Albumin 3.3(L) 3.5 - 5.0 g/dL [facility] Alk phos 97 40 - 130 Units/L [facility] ALT 864(H) 7 - 55 Units/L [facility] AST 171(H) 10 - 50 Units/L [facility] Blood 10/19/2024 9:29 AM CDT 10/19/2024 9:55 AM CDT Guillermo Mayes MD LAB BLOOD ORDERABLES Final R esult Performing Organization Address [facility] Co de Phone Number NICOLE RAYGOZA [address] [address] [place], [place] [id number] * XR Chest 1 View - Portable [...] AM CDT) 10/19/2024 3:14 AM CDT Narrative [facility] - 10/19/2024 8:19 AM CDT Vent Rate: 88 bpm RR Interval: 679 msec HI Interval: 128 msec QRS Duration: 100 msec QT Interval: 374 msec QTC Interval: 419 msec P-R-T Hulett: 26 - 17 - 30 degrees IMPRESSION: SINUS RHYTHM NONSPECIFIC INTRAVENTRICULAR CONDUCTION DELAY Electronically Signed By: Wily Murrieta MD, [facility] us Daisy Llamas MD ECG ORDERABLES Final Res ult [facility] * (ABNORMAL) eGFR (10/19/2024 2:59 AM CDT) [...] NP LAB BLOOD ORDERABLES Fin al Result [facility] [address] [address] Liu Department [place] [address] * (ABNORMAL) CBC without differential (10/19/2024 2:59 AM CDT) WBC 11.2(H) 3.8 - 9.9 K/cumm Hgb 10.3(L) 13.0 - 17.5 g/dL [facility] Hct 31.1(L) 38.9 - 50.3 % [facility] Plt 142(L) 150 - 400 K/cumm [facility] MPV 11.4 9.1 - 12.3 fL [facility] RBC 3.42(L) 4.30 - 5.80 M/cumm [facility] MCV 90.9 81.3 - 96.4 fL [facility] MCH 30.1 27.1 - 33.3 pg [facility] MCHC 33.1 32.3 - 35.7 g/dL [facility] RDW CV 16.0(H) 11.1 - 14.9 % [facility] RDW SD 47.8 35.7 - 48.1 fL [facility] NRBC abs 0.10(H) 0.00 - 0.01 K/cumm [facility] Blood 10/19/2024 2:59 AM CDT 10/19/2024 3:08 AM CDT Guillermo Mayes MD LAB BLOOD ORDERABLES Final R esult NICOLE RAYGOZA [address] [address] [place] [address] * (ABNORMAL) Phosphorus (10/19/2024 2:59 AM CDT) Phosphorus, pl 2.1(L) 2.3 - 4.5 mg/dL Blood 10/19/2024 2:59 AM CDT 10/19/2024 3:07 AM CDT Guillermo Mayes MD LAB BLOOD ORDERABLES Final R esult Performing Organization Address [facility] Co de Phone Number NICOLE RAYGOZA [address] [place] [address] * Magnesium (10/19/2024 2:59 AM CDT) Magnesium 2.2 1.4 - 2.5 mg/dL Blood 10/19/2024 2:59 AM CDT 10/19/2024 3:07 AM CDT Guillermo Mayes MD LAB BLOOD ORDERABLES Final R esult Performing Organization Address [facility] Co de Phone Number NICOLE RAYGOZA [address] [address] Manuel [facility] [place] [address] * (ABNORMAL) Basic metabolic panel (10/19/2024 2:59 AM CDT) Sodium 139 135 - 145 mmol/L Potassium, pl 4.0 3.3 - 4.9 mmol/L [facility] Chloride 105 97 - 110 mmol/L [facility] CO2 25 22 - 32 mmol/L [facility] Anion gap 9 2 - 15 mmol/L [facility] BUN 51(H) 6 - 25 mg/dL [facility] Creatinine 1.35(H) 0.80 - 1.30 mg/dL [facility] Comment:Icteric sample, test results may be affected. Glucose 124 70 - 199 mg/dL [facility] Comment: Interpretive Data Fasting glucose >/= [...] 2022. Calcium 7.9(L) 8.5 - 10.3 mg/dL [facility] Blood 10/19/2024 2:59 AM CDT 10/19/2024 3:07 AM CDT Guillermo Mayes MD LAB BLOOD ORDERABLES Final R esult Performing Organization Address City/State/[facility] Co de Phone Number [address] [place] [address] * Clinical pathology report (10/18/2024 11:46 AM CDT) Miscellaneous 10/18/2024 11: 46 AM CDT 10/18/2024 11:46 AM CDT Narrative 10/18/2024 3:46 PM CDT EPIC results best viewed via link to PDF [facility] Department of Pathology [address] [place] [address] Final Report Note to Patients: This report [...] the details. Patient Name: TREVOR SHAW Address: [address] [place] [address] Gender: M : 1945 (Age: 79) Service: Cardiothoracic Location: [facility] Hospital #: [id number] Patient Type: [facility] Taken: 10/18/2024 Received: 10/18/2024 Accessioned: 10/18/2024 Physician(s): [...] determined by the Surgical Pathology Department at [facility] as part of an ongoing supplier quality manager program and in compliance with federally [...] characteristics determined by the Surgical Pathology Department [facility]. It has not been cleared or approved [...] BLOOD ORDERABLES Final R esult NICOLE RAYGOZA [address] [address] Department [place] [address] * XR Chest 1 View - Portable [...] NP LAB BLOOD ORDERABLES Fin al Result [facility] [address] [address] Liu Department [place] [address] * (ABNORMAL) CBC without differential (10/18/2024 3:32 AM CDT) WBC 14.9(H) 3.8 - 9.9 K/cumm Hgb 10.1(L) 13.0 - 17.5 g/dL [facility] Hct 30.3(L) 38.9 - 50.3 % [facility] Plt 150 150 - 400 K/cumm [facility] MPV 11.5 9.1 - 12.3 fL [facility] RBC 3.30(L) 4.30 - 5.80 M/cumm [facility] MCV 91.8 81.3 - 96.4 fL [facility] MCH 30.6 27.1 - 33.3 pg [facility] MCHC 33.3 32.3 - 35.7 g/dL [facility] RDW CV 15.3(H) 11.1 - 14.9 % [facility] RDW SD 48.7(H) 35.7 - 48.1 fL [facility] NRBC abs 0.38(H) 0.00 - 0.01 K/cumm [facility] Blood 10/18/2024 3:32 AM CDT 10/18/2024 3:35 AM CDT us Guillermo Mayes MD LAB BLOOD ORDERABLES Final R esult Performing Organization Address [facility] Co de Phone Number NICOLE [address] Jose Manuel Liu [facility] [place] [address] * Phosphorus (10/18/2024 3:32 AM CDT) Phosphorus, pl 3.2 2.3 - 4.5 mg/dL Blood 10/18/2024 3:32 AM CDT 10/18/2024 3:35 AM CDT Guillermo Mayes MD LAB BLOOD ORDERABLES Final R esult Performing Organization Address [facility] de Phone Number NICOLE [address] Jose Manuel Liu [facility] [place] [address] * Magnesium (10/18/2024 3:32 AM CDT) Magnesium 2.3 1.4 - 2.5 mg/dL Blood 10/18/2024 3:32 AM CDT 10/18/2024 3:35 AM CDT Guillermo Mayes MD LAB BLOOD ORDERABLES Final R esult Performing Organization Address [facility] de Phone Number NICOLE [address] [address] Liu [place] [address] * (ABNORMAL) Lactate dehydrogenase (LD) (10/18/2024 3:32 AM CDT) Lactate dehydrogenase (LDH) 672(H) 100 - 250 Units/L Comment:Hemolysis present. R esults may be affected. Blood 10/18/2024 3:32 AM CDT 10/18/2024 6:38 AM CDT Jonathan Rodriguez MD LAB BLOOD ORDERABLES Final Resu lt Performing Organization Address [facility] Co de Phone Number NICOLE [address] [address] Liu [place] [address] * (ABNORMAL) Haptoglobin (10/18/2024 3:32 AM CDT) Haptoglobin <10(L) 30 - 200 mg/dL Comment:Hemolysis present. R esults may be affected. Blood 10/18/2024 3:32 AM CDT 10/18/2024 6:38 AM CDT Jonathan Rodriguez MD LAB BLOOD ORDERABLES Final Resu lt Performing Organization Address [facility] Co de Phone Number NICOLE RAYGOZA [address] [address] Liu [place] [address] * (ABNORMAL) Hepatic function panel (10/18/2024 3:32 AM CDT) Pathologist [facility] Bilirubin, total 1.1 0.1 - 1.2 mg/dL [...] ORDERABLES Final Resu lt Performing Organization Address [facility]/ZIP Co de Phone Number LORINACE RAYGOZA [address] [address] Liu [place] [address] * (ABNORMAL) Basic metabolic panel (10/18/2024 3:32 AM CDT) Pathologist [facility] Sodium 140 135 - 145 mmol/L Potassium, pl 3.9 3.3 - 4.9 mmol/L [facility] Chloride 102 97 - 110 mmol/L [facility] CO2 25 22 - 32 mmol/L [facility] Anion gap 13 2 - 15 mmol/L [facility] BUN 70(H) 6 - 25 mg/dL [facility] Creatinine 1.94(H) 0.80 - 1.30 mg/dL [facility] Glucose 120 70 - 199 mg/dL [facility] Comment: Interpretive Data Fasting glucose >/= [...] 2022. Calcium 8.5 8.5 - 10.3 mg/dL [facility] Blood 10/18/2024 3:32 AM CDT 10/18/2024 3:35 AM CDT Guillermo Mayes MD LAB BLOOD ORDERABLES Final R esult Performing Organization Address City/[facility]/ZIP Co de Phone Number LORINACE [address] [address] [place], [place] [id number] * POCT glucose (10/17/2024 6:21 PM CDT) Glucose, POC 125 70 - 199 mg/dL Blood 10/17/2024 6:21 PM CDT 10/17/2024 6:21 PM CDT Guillermo Mayes MD LAB POCT ORDERABLES - DEVICE Final Result Performing Organization Address [facility] Co de Phone Number [facility] [address] [address] [place] [address] * (ABNORMAL) Calcium, ionized, whole blood (10/17/2024 6:00 PM CDT) Ca, ionized, bld 4.22(L) 4.50 - 5.10 mg/dL Blood 10/17/2024 6:00 PM CDT 10/17/2024 6:11 PM CDT Guillermo Mayes MD LAB BLOOD ORDERABLES Final R esult Performing Organization Address [facility] Co de Phone Number NICOLE RAYGOZA [address] [place] [address] * (ABNORMAL) eGFR (10/17/2024 6:00 [...] BLOOD ORDERABLES Final R esult NICOLE RAYGOZA [id number] Department [employer] [place], [place] [id number] * (ABNORMAL) CBC with auto differential (10/17/2024 6:00 PM CDT) WBC 15.4(H) 3.8 - 9.9 K/cumm Hgb 9.9(L) 13.0 - 17.5 g/dL [facility] Hct 29.5(L) 38.9 - 50.3 % [facility] Plt 156 150 - 400 K/cumm [facility] MPV 12.0 9.1 - 12.3 fL [facility] RBC 3.24(L) 4.30 - 5.80 M/cumm [facility] MCV 91.0 81.3 - 96.4 fL [facility] MCH 30.6 27.1 - 33.3 pg [facility] MCHC 33.6 32.3 - 35.7 g/dL [facility] RDW CV 15.2(H) 11.1 - 14.9 % [facility] RDW SD 48.6(H) 35.7 - 48.1 fL [facility] NRBC abs 0.64(H) 0.00 - 0.01 K/cumm CRITICAL ACCESS [facility] Blood 10/17/2024 6:00 PM CDT 10/17/2024 6:11 PM CDT Guillermo Mayes MD LAB BLOOD ORDERABLES Edited Result - Final [facility] [address] [address] Department [place] [address] * (ABNORMAL) Manual Differential (10/17/2024 6:00 PM CDT) Differential Manual Cells Counted 100 [facility] Neutrophil abs 14.3(H) 1.5 - 6.5 K/cumm [facility] Imm gran abs 0.3(H) 0.0 - 0.1 K/cumm [facility] Lymphocyte abs 0.8 0.8 - 3.3 K/cumm [facility] Monocyte abs 0.0(L) 0.2 - 0.8 K/cumm [facility] Neutrophil pct 89.0 % [facility] Comment: Interpretive Data Percent cell count reference ranges are not reported, since discordance with absolute values may lead to misinterpretation of CBC data. Current Interpretive Data was last revised on 2017. Lymphocyte pct 5.0 % [facility] Comment: Interpretive Data Percent cell count [...] esult NICOLE [address] Department [place], [place] [id number] * Phosphorus (10/17/2024 6:00 PM CDT) Phosphorus, pl 3.9 2.3 - 4.5 mg/dL Blood 10/17/2024 6:00 PM CDT 10/17/2024 6:11 PM CDT Guillermo Mayes MD LAB BLOOD ORDERABLES Final R esult Performing Organization Address [facility]/ZIP Co de Phone Number NICOLE RAYGOZA [address] [address] Liu [place] [address] * Magnesium (10/17/2024 6:00 PM CDT) Magnesium 2.4 1.4 - 2.5 mg/dL Blood 10/17/2024 6:00 PM CDT 10/17/2024 6:11 PM CDT Guillermo Mayes MD LAB BLOOD ORDERABLES Final R esult NICOLE RAYGOZA [address] [address] Liu [place] [address] * (ABNORMAL) Blood gas, arterial (10/17/2024 6:00 [...] MD LAB BLOOD ORDERABLES Final R esult [facility] [address] [address] Department [place] [address] * (ABNORMAL) Basic metabolic panel (10/17/2024 6:00 PM CDT) Pathologist [facility] Sodium 139 135 - 145 mmol/L Potassium, pl 3.7 3.3 - 4.9 mmol/L [facility] Chloride 102 97 - 110 mmol/L [facility] CO2 23 22 - 32 mmol/L [facility] Anion gap 14 2 - 15 mmol/L [facility] BUN 79(H) 6 - 25 mg/dL [facility] Creatinine 2.09(H) 0.80 - 1.30 mg/dL [facility] Glucose 118 70 - 199 mg/dL [facility] Comment: Interpretive Data Fasting glucose [...] LAB BLOOD ORDERABLES Final R esult NICOLE [address] [place] [address] * TRANSTHORACIC ECHO (TTE) LIMITED/FOLLOW UP W LTD DOPPLER/CF WO CONTRAST (10/17/2024 9:24 AM CDT) Anatomical Region Laterality Modality Ultrasound 10/17/2024 9:00 AM CDT Narrative 10/17/2024 1:24 [place] [address] Limited Echocardiogram Report Patient Name: TREVOR SHAW : 1945 Study Date: 10/17/2024 9:00:17 AM Gender: M Tech: Location: [id number] Ref Provider: GUILLERMO MAYES Height(Cm): 182 BSA: [...] tamponade. Electronically Signed By: Boris Zaragoza MD, [facility] 10/17/2024 1:24:06 PM CDT Procedure Note Boris Zaragoza MD - 10/17/2024 [place] [address] Limited Echocardiogram Report Patient Name: TREVOR SHAW : 1945 Study Date: 10/17/2024 9:00:17 AM Gender: M Tech: Location: [id number] Ref Provider: GUILLERMO MAYES Height(Cm): 182 BSA: [...] whole blood (10/17/2024 8:03 AM CDT) Pathologist [facility] Ca, ionized, bld 4.51 4.50 - 5.10 mg/dL Blood 10/17/2024 8:03 AM CDT 10/17/2024 8:19 AM CDT us Angelica Hagan [employer]IVE GRINDER LAB BLOOD ORDERABLES Final Result NICOLE [address] [facility] Department [place] [address] * (ABNORMAL) eGFR (10/17/2024 8:03 AM CDT) Pathologist [facility] eGFR 26(L) >=60 mL/min/1. 73 m2 Comment: [...] CDT 10/17/2024 8:22 AM CDT Angelica Hagan ABR[employer]IVE GRINDER LAB BLOOD ORDERABLES Final Result Performing Organization Address [facility]/ZIP Co de Phone Number LORINACE [address] [address] [place] [address] * Magnesium (10/17/2024 8:03 AM CDT) Pathologist [facility] Magnesium 2.4 1.4 - 2.5 mg/dL Blood 10/17/2024 8:03 AM CDT 10/17/2024 8:22 AM CDT Angelica Hagan A[employer]IVE GRINDER LAB BLOOD ORDERABLES Final Result Performing Organization Address [facility]/ZIP Co de Phone Number NICOLE [address] [address] [place] [address] * (ABNORMAL) Basic metabolic panel (10/17/2024 8:03 [...] 2022. Calcium 8.3(L) 8.5 - 10.3 mg/dL [facility] Blood 10/17/2024 8:03 AM CDT 10/17/2024 8:22 AM CDT Angelica Hagan NP LAB BLOOD ORDERABLES Final Result Performing Organization Address [facility]/ZIP Co de Phone Number [facility] [address] [address] Department of [place], [place] [id number] * (ABNORMAL) Lactate (10/17/2024 6:41 AM CDT) Pathologist [facility] Lactate 2.2(H) 0.7 - 2.0 mmol/L Blood 10/17/2024 6:41 AM CDT 10/17/2024 6:45 AM CDT Daisy Llamas MD LAB BLOOD ORDERABLES Kamla l Result Performing Organization Address [facility]/ZIP Co de Phone Number [facility] [address] [address] Department [employer] [place], [place] [id number] * (ABNORMAL) CBC without differential (10/17/2024 6:41 AM CDT) WBC 15.8(H) 3.8 - 9.9 K/cumm Hgb 9.7(L) 13.0 - 17.5 g/dL [facility] Hct 29.4(L) 38.9 - 50.3 % [facility] Plt 160 150 - 400 K/cumm [facility] MPV 11.9 9.1 - 12.3 fL [facility] RBC 3.24(L) 4.30 - 5.80 M/cumm [facility] MCV 90.7 81.3 - 96.4 fL [facility] MCH 29.9 27.1 - 33.3 pg [facility] MCHC 33.0 32.3 - 35.7 g/dL [facility] RDW CV 15.0(H) 11.1 - 14.9 % [facility] RDW SD 47.9 35.7 - 48.1 fL [facility] NRBC abs 0.87(H) 0.00 - 0.01 K/cumm [facility] Blood 10/17/2024 6:41 AM CDT 10/17/2024 6:47 AM CDT Daisy Llamas MD LAB BLOOD ORDERABLES Kamla l Result Performing Organization Address [facility] Co de Phone Number NICOLE [address] [address] [facility] [place] [address] * (ABNORMAL) Lactate (10/17/2024 5:51 AM CDT) Pathologist [facility] Lactate 2.5(H) 0.7 - 2.0 mmol/L Blood 10/17/2024 5:51 AM CDT 10/17/2024 5:53 AM CDT Daisy Llamas MD LAB BLOOD ORDERABLES Kamla l Result Performing Organization Address [facility] Co de Phone Number [facility] [address] [address] [place] [address] * (ABNORMAL) CBC without differential (10/17/2024 5:51 AM CDT) WBC 15.8(H) 3.8 - 9.9 K/cumm Hgb 9.7(L) 13.0 - 17.5 g/dL [facility] CH Hct 29.1(L) 38.9 - 50.3 % [facility] Plt 162 150 - 400 K/cumm [facility] MPV 11.9 9.1 - 12.3 fL [facility] RBC 3.20(L) 4.30 - 5.80 M/cumm [facility] MCV 90.9 81.3 - 96.4 fL [facility] MCH 30.3 27.1 - 33.3 pg [facility] MCHC 33.3 32.3 - 35.7 g/dL [facility] CH RDW CV 15.0(H) 11.1 - 14.9 % [facility] RDW SD 48.3(H) 35.7 - 48.1 fL [facility] NRBC abs 0.85(H) 0.00 - 0.01 K/cumm [facility] Blood 10/17/2024 5:51 AM CDT 10/17/2024 5:53 AM CDT Daisy Llamas MD LAB BLOOD ORDERABLES Kamla l Result Performing Organization Address [facility] Co de Phone Number NICOLE RAYGOZA [address] [address] [place] [address] * Vancomycin level random (10/17/2024 4:57 AM CDT) Vancomycin random 17.5 mcg/mL Comment: Interpretive Data No reference ranges have been established for random drug levels. Current Interpretive Data was last revised on 2020. Blood 10/17/2024 4:57 AM CDT 10/17/2024 11:47 AM CDT Guillermo Mayes MD LAB BLOOD ORDERABLES Final R esult Performing Organization Address [facility] Co de Phone Number [facility] [address] [address] [place] [address] * XR Chest 1 View - Portable [...] Mayes MD BLOOD TRANSFUSION ORDERABLES Final Result [facility] [address] [address] Department [place] [address] * (ABNORMAL) CBC without differential (10/16/2024 9:31 PM CDT) WBC 18.4(H) 3.8 - 9.9 K/cumm Hgb 9.7(L) 13.0 - 17.5 g/dL [facility] Hct 29.2(L) 38.9 - 50.3 % [facility] Plt 198 150 - 400 K/cumm [facility] MPV 11.9 9.1 - 12.3 fL [facility] RBC 3.22(L) 4.30 - 5.80 M/cumm [facility] MCV 90.7 81.3 - 96.4 fL [facility] MCH 30.1 27.1 - 33.3 pg [facility] MCHC 33.2 32.3 - 35.7 g/dL [facility] RDW CV 14.7 11.1 - 14.9 % [facility] RDW SD 47.2 35.7 - 48.1 fL [facility] NRBC abs 1.34(H) 0.00 - 0.01 K/cumm NICOLE Blood 10/16/2024 9:31 PM CDT 10/16/2024 9:45 PM CDT Daisy Llamas MD LAB BLOOD ORDERABLES Kamla l Result [facility] [address] [address] Department [place] [address] * Critical Care (10/16/2024 8:44 PM CDT) Narrative Daisy Llamas MD - 10/16/2024 8:44 PM CDT Daisy Llamas MD 10/17/2024 5:38 AM Critical Care Performed by: Daisy Llamas MD Authorized by: Daisy Llamas MD CRITICAL CARE: Team: JSOIE Shift: PM Level of Billing: Critical Care [...] plan with the ICU team and other medical/virtualization consultant staff, making frequent assessments and decisions [...] * POCT glucose (10/16/2024 8:12 PM CDT) [facility] Glucose, POC 146 70 - 199 mg/dL Blood 10/16/2024 8:12 PM CDT 10/16/2024 8:12 PM CDT us Guillermo Mayes MD LAB POCT ORDERABLES - DEVICE Final Result Performing Organization Address [facility] Co de Phone Number [facility] [address] [address] [facility] [place] [address] * Transfuse RBC (10/16/2024 7:30 PM CDT) Blood Guillermo Mayes MD BLOOD TRANSFUSION ORDERABLES Final Result Performing Organization Address [facility]/ZIP Co de Phone Number NICOLE [address] [address] [place] [address] * Transfuse RBC (10/16/2024 4:09 PM CDT) Blood us Angelica Hagan [employer]IVE GRINDER BLOOD TRANSFUSION ORDERABLE S Final Result Performing Organization Address [facility] Co de Phone Number [facility] [address] [address] [place] [address] * (ABNORMAL) eGFR (10/16/2024 2:38 PM CDT) [facility] eGFR 27(L) >=60 mL/min/1. 73 m2 Comment: [...] LAB BLOOD ORDERABLES Final R esult NICOLE [address] [address] Department [place] [address] * (ABNORMAL) CBC without differential (10/16/2024 2:38 PM CDT) WBC 21.1(H) 3.8 - 9.9 K/cumm Hgb 7.8(L) 13.0 - 17.5 g/dL [facility] Hct 23.5(L) 38.9 - 50.3 % [facility] Plt 201 150 - 400 K/cumm [facility] MPV 12.0 9.1 - 12.3 fL [facility] RBC 2.58(L) 4.30 - 5.80 M/cumm [facility] MCV 91.1 81.3 - 96.4 fL [facility] MCH 30.2 27.1 - 33.3 pg [facility] MCHC 33.2 32.3 - 35.7 g/dL [facility] RDW CV 14.7 11.1 - 14.9 % [facility] RDW SD 46.7 35.7 - 48.1 fL [facility] NRBC abs 0.93(H) 0.00 - 0.01 K/cumm [facility] Blood 10/16/2024 2:38 PM CDT 10/16/2024 2:38 PM CDT us Guillermo Mayes MD LAB BLOOD ORDERABLES Final R esult Performing Organization Address [facility] Co de Phone Number NICOLE RAYGOZA [address] [address] [facility] [place] [address] * Magnesium (10/16/2024 2:38 PM CDT) Magnesium 2.2 1.4 - 2.5 mg/dL Blood 10/16/2024 2:38 PM CDT 10/16/2024 2:38 PM CDT Guillermo Mayes MD LAB BLOOD ORDERABLES Final R esult Performing Organization Address [facility] de Phone Number NICOLE RAYGOZA [address] [address] [facility] [place] [address] * (ABNORMAL) Lactate dehydrogenase (LD) (10/16/2024 2:38 PM CDT) Lactate dehydrogenase (LDH) 1,808(H) 100 - 250 Units/L Blood 10/16/2024 2:38 PM CDT 10/18/2024 7:05 AM CDT Jonathan Rodriguez MD LAB BLOOD ORDERABLES Final Resu lt Performing Organization Address [facility] de Phone Number NICOLE [address] [address] [facility] [place] [address] * (ABNORMAL) Haptoglobin (10/16/2024 2:38 PM CDT) Haptoglobin <10(L) 30 - 200 mg/dL Comment:Hemolysis present. R esults may be affected. Blood 10/16/2024 2:38 PM CDT 10/18/2024 7:05 AM CDT Jonathan Rodriguez MD LAB BLOOD ORDERABLES Final Resu lt Performing Organization Address [facility] Co de Phone Number NICOLE [address] [address] [facility] [place] [address] * (ABNORMAL) Basic metabolic panel (10/16/2024 2:38 PM CDT) Sodium 138 135 - 145 mmol/L Potassium, pl 4.9 3.3 - 4.9 mmol/L [facility] Chloride 102 97 - 110 mmol/L [facility] CO2 17(L) 22 - 32 mmol/L [facility] Anion gap 19(H) 2 - 15 mmol/L [facility] BUN 80(H) 6 - 25 mg/dL [facility] Creatinine 2.40(H) 0.80 - 1.30 mg/dL [facility] Comment:Icteric sample, test results may be affected. Glucose 148 70 - 199 mg/dL [facility] Comment: Interpretive Data Fasting glucose >/= [...] 2022. Calcium 8.3(L) 8.5 - 10.3 mg/dL [facility] Blood 10/16/2024 2:38 PM CDT 10/16/2024 2:38 PM CDT Guillermo Mayes MD LAB BLOOD ORDERABLES Final R esult NICOLE [address] [address] Department [place] [address] * (ABNORMAL) Lactate (10/16/2024 2:24 PM CDT) Pathologist [facility] Lactate 4.8(C) 0.7 - 2.0 mmol/L Comment:Critical result call ed to and read back by Roopa Galeana on 10/16/2024 14:44:25 CDT to Anna Rob. Blood 10/16/2024 2:24 PM CDT 10/16/2024 2:37 PM CDT Guillermo Mayes MD LAB BLOOD ORDERABLES Final R esult Performing Organization Address [facility] Co de Phone Number NICOLE RAYGOZA [address] [address] [facility] [place] [address] * Calcium, ionized, whole blood (10/16/2024 2:24 PM CDT) Ca, ionized, bld 4.56 4.50 - 5.10 mg/dL Blood 10/16/2024 2:24 PM CDT 10/16/2024 2:37 PM CDT Result [facility] Guillermo Mayes MD LAB BLOOD ORDERABLES Final R esult Performing Organization Address [facility] Phone Number NICOLE RAYGOZA [address] [address] [place] [address] * (ABNORMAL) Blood gas, arterial (10/16/2024 2:24 [...] PM CDT 10/16/2024 2:37 PM CDT Result [facility] Guillermo Mayes MD LAB BLOOD ORDERABLES Final R esult Performing Organization Address [facility] Co de Phone Number NICOLE RAYGOZA [address] [address] [facility] [place], [place] [id number] * Prepare RBC: 2 Units (10/16/2024 2:09 PM CDT) Product code [id number] Unit Number [id number] [facility] Product Blood Type OPOS [facility] Dispense Status PRESUMED TRANSFUSED [facility] Product code [id number] [facility] Unit Number [id number] [facility] Product Blood Type OPOS [facility] CH Dispense Status PRESUMED TRANSFUSED [facility] Blood 10/16/2024 2:09 PM CDT Narrative [facility] - 10/17/2024 10:15 AM CDT Are special requirements needed? (All products are leukoreduced and CMV- safe)- >No Date required:-20241016 LRRBC # of [id number] Reasons:-Hgb <7 g/dL} Angelica Hagan NP BLOOD BANK PRODUCT ORDERABL ES Final Result Performing Organization Address [facility]/ZIP Co de Phone Number LORINACE [address] [address] [place] [address] * Transfuse RBC (10/16/2024 12:30 PM CDT) Blood Angelica Hagan NP BLOOD TRANSFUSION ORDERABLE S Final Result Performing Organization Address [facility]/ZIP Co de Phone Number LORINACE [address] [address] Department of [place], [place] [id number] * Blood culture Blood (10/16/2024 12:04 PM CDT) Report Final Report: No growth Comment:Testing performed by : [facility], [address] [facility], [place]., [address] Blood 10/16/2024 12:0 4 PM CDT 10/16/2024 [...] performance characteristics have been verified by the [facility] Microbiology Laboratory. For questions about this culture, contact the Microbiology Laboratory at [phone]. Interpretive data was last revised on 24. Roopa Yeboah NP LAB MICROBIOLOGY - GEN ERAL ORDERABLES Final Result [facility] [address] [address] Department [place] [address] * (ABNORMAL) CBC without differential (10/16/2024 12:04 PM CDT) WBC 22.1(H) 3.8 - 9.9 K/cumm Hgb 6.8(L) 13.0 - 17.5 g/dL [facility] Hct 20.7(L) 38.9 - 50.3 % [facility] Plt 203 150 - 400 K/cumm [facility] MPV 12.1 9.1 - 12.3 fL [facility] RBC 2.22(L) 4.30 - 5.80 M/cumm [facility] MCV 93.2 81.3 - 96.4 fL [facility] Comment:MCV delta due to sage arent blood transfusion. Spoke with Genaro Hawkins(RN) @1250 MCH 30.6 27.1 - 33.3 pg [facility] MCHC 32.9 32.3 - 35.7 g/dL [facility] RDW CV 14.4 11.1 - 14.9 % [facility] RDW SD 47.8 35.7 - 48.1 fL [facility] NRBC abs 0.90(H) 0.00 - 0.01 K/cumm NICOLE Blood 10/16/2024 12:0 4 PM CDT 10/16/2024 12:08 PM CDT us Guillermo Mayes MD LAB BLOOD ORDERABLES Final R esult NICOLE [address] [address] Department [place] [address] * Arterial Line Insertion (10/16/2024 11:42 AM CDT) Narrative Dani Quintero MD - 10/16/2024 11:42 AM CDT Dani Quintero MD 10/16/2024 2:43 PM Arterial Line Insertion Date/Time: 10/16/2024 11:42 AM Performed by: Naty Dunbar DO Authorized by: Naty Dunbar DO [place] Protocol: RN Notified of Procedure: yes Informed [...] Dunbar DO Authorized by: Naty Dunbar DO [place] Protocol: RN Notified of Procedure: yes Informed [...] tendency for uric acid stone formation. Source: [facility] Current Interpretive Data was last revised on [...] MICROBIOLOGY - GEN ERAL ORDERABLES Final Result [facility] [address] [address] Department [place] [address] * (ABNORMAL) Urinalysis, microscopic only (10/16/2024 11:30 [...] 10/16/2024 11:35 AM CDT Roopa Apolonia Doubek [employer]BR[employer]IVE GRINDER LAB URINE ORDERABLES F inal Result Performing Organization Address [facility] de Phone Number NICOLE RAYGOZA [address] [address] [facility] [place] [address] * Infection Prevention MRSA Only (Staphylococcus aureus) PCR Nasal (10/16/2024 11:03 AM CDT) PCR Scrn, Methicillin resistant Staphylococcus aureus (MRSA) Not Detected Not Detected CH Comment: Interpretive Data Testing performed using Nucleic Acid Amplification with the Oxtex Xpert MRSA NxG Assay. This assay detects target DNA from mecA, mecC and the SCCmec insertion site of Staphylococcus aureus using Real-Time PCR and has been cleared by the FDA. Performance characteristics have been verified by the [facility]. Current Interpretive Data was last revised on 2022 Nasal 10/16/2024 11:0 3 AM CDT 10/16/2024 11:39 AM CDT Angelica Hagan NP LAB MICROBIOLOGY - GENERAL ORDERABLES Final Result Performing Organization Address [facility] de Phone Number NICOLE RAYGOZA [address] [address] [facility] [place] [address] CH * Prepare RBC: 1 Units (10/16/2024 10:37 AM CDT) Pathologist [facility] Product code [id number] Unit Number [id number] [facility] Product Blood Type OPOS [facility] Dispense Status PRESUMED TRANSFUSED [facility] Blood 10/16/2024 10:3 7 AM CDT Narrative [facility]/16/[facility] 10:15 PM CDT Are special requirements needed? (All products are leukoreduced and CMV- safe)- >No Date required:-20241016 LRRBC # of [id number] Reasons:-Active bleeding, Hgb <8 g/dL} Angelica Hagan NP BLOOD BANK PRODUCT ORDERABL ES Final Result Performing Organization Address [facility] de Phone Number NICOLE RAYGOZA [address] Department [place] [address] * (ABNORMAL) POC Blood Gas and Chemistries, [...] ORDERABLES - DEVICE Final Result NICOLE RAYGOZA [address] [address] Department [place] [address] * (ABNORMAL) Lactate (10/16/2024 10:01 AM CDT) Lactate 10.5(C) 0.7 - 2.0 mmol/L Comment:Critical result call ed to and read back by Roopa Galeana RN_ (_) on 10/16/2024 10:12:28 CDT to fareed santana. Blood 10/16/2024 10:0 1 AM CDT 10/16/2024 10:04 AM CDT Roopa Yeboah A[employer]IVE GRINDER LAB BLOOD ORDERABLES F inal Result Performing Organization Address [facility] Co de Phone Number NICOLE Huoshi [address] [address] [place] [address] * (ABNORMAL) eGFR (10/16/2024 10:01 AM CDT) [...] ORDERABLES F inal Result Performing Organization Address City/[facility]/ZIP Co de Phone Number NICOLE RAYGOZA [address] [address] Department [place] [address] * Blood culture Blood (10/16/2024 10:01 AM CDT) Report Final Report: No growth Comment:Testing performed by : [facility], [address] [facility], [place]., [address] Blood 10/16/2024 10:0 1 AM CDT 10/16/2024 [...] performance characteristics have been verified by the [facility] Microbiology Laboratory. For questions about this culture, contact the Microbiology Laboratory at [phone]. Interpretive data was last revised on 24. Roopa Yeboah NP LAB MICROBIOLOGY - GEN ERAL ORDERABLES Final Result NICOLE RAYGOZA [address] [address] Department [place] [address] * (ABNORMAL) aPTT (10/16/2024 10:01 AM CDT) [...] BLOOD ORDERABLES Final Result Performing Organization Address [facility] Co de Phone Number [facility] [address] [address] [place] [address] * (ABNORMAL) Protime-INR (10/16/2024 10:01 [...] BLOOD ORDERABLES Final Result Performing Organization Address [facility] Co de Phone Number NICOLE [address] [address] [place] [address] * Type and screen (10/16/2024 10:01 AM CDT) Nani, indirect Negative ABO Rh O Positive NICOLE Blood 10/16/2024 10:0 1 AM CDT 10/16/2024 10:07 AM CDT Narrative NICOLE RAYGOZA - 10/16/2024 11:01 AM CDT Has the patient had Daratumumab or Isatuximab in the past 6 months?->Unknown Angelica Hagan NP LAB BLOOD BANK TEST ORDERAB LES Final Result Performing Organization Address [facility]/ZIP Co de Phone Number NICOLE RAYGOZA [address] [address] [place] [address] * Direct antiglobulin test (10/16/2024 10:01 AM CDT) Direct Nani BS Interpretation Negative Blood 10/16/2024 10:0 1 AM CDT 10/18/2024 7:18 AM CDT Jonathan Rodriguez MD LAB BLOOD BANK TEST ORDERABLES Final Result Performing Organization Address [facility] Phone Number NICOLE RAYGOZA [address] [address] [facility] [place] [address] * (ABNORMAL) Blood gas, arterial (10/16/2024 10:01 [...] BLOOD ORDERABLES Final Result Performing Organization Address [facility] Co de Phone Number NICOLE RAYGOZA [address] [address] [place] [address] * (ABNORMAL) Basic metabolic panel (10/16/2024 10:01 AM CDT) Sodium 136 135 - 145 mmol/L Potassium, pl 5.6(H) 3.3 - 4.9 mmol/L [facility] Chloride 97 97 - 110 mmol/L [facility] CO2 14(L) 22 - 32 mmol/L [facility] Anion gap 25(H) 2 - 15 mmol/L [facility] BUN 78(H) 6 - 25 mg/dL [facility] Creatinine 2.50(H) 0.80 - 1.30 mg/dL [facility] Comment:Icteric sample, test results may be affected. Glucose 122 70 - 199 mg/dL [facility] Comment: Interpretive Data Fasting glucose >/= [...] 2022. Calcium 8.0(L) 8.5 - 10.3 mg/dL [facility] Blood 10/16/2024 10:0 1 AM CDT 10/16/2024 10:05 AM CDT us Roopa Yeboah [employer] GRINDER LAB BLOOD ORDERABLES F inal Result [address] Department of Laboratories [place] [id number] * TRANSTHORACIC ECHO (TTE) LIMITED/FOLLOW UP W LTD DOPPLER/CF WO CONTRAST (10/16/2024 9:35 AM CDT) Anatomical Region Laterality Modality Ultrasound 10/16/2024 8:12 AM CDT Narrative 10/16/2024 9:39 AM CDT [facility] [id number] [place] [id number] Limited Echocardiogram Report Patient Name: TREVOR SHAW : 1945 Study Date: 10/16/2024 8:12:00 AM Gender: M Tech: Location: [id number] Ref Provider: ANGELICA HAGAN Height(Cm): 182 BSA: [...] Procedure Note Shaila Fuentes MD - 10/16/2024 [place] [address] Limited Echocardiogram Report Patient Name: TREVOR SHAW : 1945 Study Date: 10/16/2024 8:12:00 AM Gender: M Tech: Location: [id number] Ref Provider: ANGELICA HAGAN Height(Cm): 182 BSA: [...] with suboptimal visualization. Electronically Signed By: Shaila Fuetnes MD 10/16/2024 9:38:13 AM CDT Angelica Hagan NP CV ECHO PROCEDURES Final Re sult * Prepare RBC: 1 Units (10/16/2024 9:08 AM CDT) Product code [id number] Unit Number [id number] [facility] Product Blood Type [facility] Dispense Status PRESUMED TRANSFUSED [facility] Blood 10/16/2024 9:08 AM CDT Narrative [facility] 10:15 PM CDT Are special requirements needed? (All products are leukoreduced and CMV- safe)- >No Date required:-[id number] LRRBC # of [id number] Reasons:-Cardiovascular disease, Hgb <8 g/dL} Angelica Hagan NP BLOOD BANK PRODUCT ORDERABL ES Final Result NICOLE RAYGOZA [address] [address] Department [place] [address] * CT Chest Abdomen Pelvis WO Contrast [...] signed by: Richie Cox M.D. Angelica Hagan ABRASIVE GRINDER IMG CT PROCEDURES Final Res ult * [...] - DEVICE Final Result Performing Organization Address [facility] Co de Phone Number NICOLE [address] [place] [address] * POCT glucose (10/16/2024 8:24 AM CDT) [facility] Glucose, POC 136 70 - 199 mg/dL Blood 10/16/2024 8:24 AM CDT 10/16/2024 8:24 AM CDT Guillermo Mayes MD LAB POCT ORDERABLES - DEVICE Final Result Performing Organization Address [facility] Co de Phone Number [facility] [address] [address] [place] [address] * (ABNORMAL) eGFR (10/16/2024 5:14 AM CDT) [...] us Yvette Russell NP LAB BLOOD ORDERABLES [facility] al Result [facility] [address] [address] Department [place] [address] * (ABNORMAL) CBC without differential (10/16/2024 5:14 AM CDT) Pathologist [facility] WBC 19.8(H) 3.8 - 9.9 K/cumm Hgb 7.9(L) 13.0 - 17.5 g/dL [facility] Hct 26.4(L) 38.9 - 50.3 % [facility] Plt 229 150 - 400 K/cumm [facility] MPV 12.1 9.1 - 12.3 fL [facility] RBC 2.47(L) 4.30 - 5.80 M/cumm [facility] MCV 106.9(H) 81.3 - 96.4 fL [facility] Comment:MCV delta possibly d ue to low [...] LAB BLOOD ORDERABLES Final R esult [facility] [address] [address] Department [place] [address] * (ABNORMAL) Basic metabolic panel (10/16/2024 5:14 [...] BLOOD ORDERABLES Final R esult NICOLE RAYGOZA [address] [address] Department [place] [address] * XR Chest 1 View - Portable [...] MD LAB BLOOD ORDERABLES Final R esult [facility] [address] [address] Department [place] [address] * (ABNORMAL) CBC without differential (10/15/2024 1:32 PM CDT) WBC 14.9(H) 3.8 - 9.9 K/cumm Hgb 8.4(L) 13.0 - 17.5 g/dL [facility] Hct 26.4(L) 38.9 - 50.3 % [facility] Plt 240 150 - 400 K/cumm [facility] MPV 12.0 9.1 - 12.3 fL [facility] RBC 2.76(L) 4.30 - 5.80 M/cumm [facility] MCV 95.7 81.3 - 96.4 fL [facility] MCH 30.4 27.1 - 33.3 pg [facility] MCHC 31.8(L) 32.3 - 35.7 g/dL [facility] CH RDW CV 14.6 11.1 - 14.9 % [facility] CH RDW SD 49.9(H) 35.7 - 48.1 fL [facility] NRBC abs 0.52(H) 0.00 - 0.01 K/cumm [facility] Blood 10/15/2024 1:32 PM CDT 10/15/2024 1:32 PM CDT Guillermo Mayes MD LAB BLOOD ORDERABLES Final R esult NICOLE RAYGOZA [address] [address] [place] [address] * (ABNORMAL) Basic metabolic panel (10/15/2024 1:32 PM CDT) [facility] Sodium 139 135 - 145 mmol/L Potassium, pl 4.6 3.3 - 4.9 mmol/L [facility] Chloride 102 97 - 110 mmol/L [facility] CO2 19(L) 22 - 32 mmol/L [facility] CH Anion gap 18(H) 2 - 15 mmol/L [facility] BUN 62(H) 6 - 25 mg/dL [facility] Creatinine 1.56(H) 0.80 - 1.30 mg/dL [facility] Glucose 140 70 - 199 mg/dL [facility] Comment: Interpretive Data Fasting glucose >/= [...] 2022. Calcium 9.2 8.5 - 10.3 mg/dL [facility] Blood 10/15/2024 1:32 PM CDT 10/15/2024 1:32 PM CDT Guillermo Mayes MD LAB BLOOD ORDERABLES Final R esult Performing Organization Address [facility]/ZIP Co de Phone Number NICOLE RAYGOZA [address] [place] [address] * POCT glucose (10/15/2024 11:55 AM CDT) Glucose, POC 134 70 - 199 mg/dL Blood 10/15/2024 11:5 5 AM CDT 10/15/2024 11:55 AM CDT Guillermo Mayes MD LAB POCT ORDERABLES - DEVICE Final Result NICOLE [address] [facility] Department [place] [address] * XR Chest 1 View [...] * ECG 12 lead (10/15/2024 1:15 AM SURVEILLANCE AGENT) 10/15/2024 1:15 AM SURVEILLANCE AGENT Narrative [facility] - 10/15/2024 11:28 AM CDT Vent Rate: 106 bpm RR Interval: 564 msec HI Interval: 0 msec QRS Duration: 101 msec QT Interval: 342 msec QTC Interval: 404 msec P-R-T Hulett: 0 - 12 - 88 degrees IMPRESSION: POSSIBLE SINUS TACHYCARDIA ST ELEVATION, PROBABLY EARLY REPOLARIZATION NONSPECIFIC ST \T\ T-WAVE ABNORMALITY ABNORMAL RHYTHM ECG CONDUCTION DELAY HAS IMPROVED Electronically Signed By: Shaila Fuentes MD us Teresa Knox MD ECG ORDERABLES Final Result Performing Organization Address [facility] Co de Phone Number [facility] * POCT glucose (10/14/2024 8:35 PM SURVEILLANCE AGENT) Glucose, POC 147 70 - 199 mg/dL Blood 10/14/2024 8:35 PM SURVEILLANCE AGENT 10/14/2024 8:35 PM SURVEILLANCE AGENT us Guillermo Mayes MD LAB POCT ORDERABLES - DEVICE Final Result Performing Organization Address [facility] Co de Phone Number [facility] [address] [facility] [place] [address] * TRANSTHORACIC ECHO (TTE) COMPLETE W DOPPLER/CF WO CONTRAST (10/14/2024 9:52 AM SURVEILLANCE AGENT) Pathologist [facility] LV EF 55 % CONS SCIMAGE Anatomical Region Laterality Modality Ultrasound 10/14/2024 7:18 AM SURVEILLANCE AGENT Narrative 10/14/2024 11:25 [place] [address] Echocardiogram Report Patient Name: TREVOR SHAW : 1945 Study Date: 10/14/2024 7:18:19 AM Gender: M Tech: [place] Location: [id number] Ref Provider: MIGDALIA SALCEDO Height(Cm): 183 BSA: [...] regurgitation. Electronically Signed By: Dr. Tracey Drew [facility] 10/14/2024 11:24:11 AM SURVEILLANCE AGENT Procedure Note Tracey Drew MD - 10/14/2024 [place] [address] Echocardiogram Report Patient Name: TREVOR SHAW : 1945 Study Date: 10/14/2024 7:18:19 AM Gender: M Tech: [place] Location: [id number] Ref Provider: MATIASMIGDALIA ANSARI Height(Cm): 183 BSA: [...] regurgitation. Electronically Signed By: Dr. Tracey Drew [facility] 10/14/2024 11:24:11 AM SURVEILLANCE AGENT us Migdalia Salcedo NP CV ECHO PROCEDURES Final R esult * POCT glucose (10/14/2024 7:57 AM SURVEILLANCE AGENT) Glucose, POC 118 70 - 199 mg/dL Blood 10/14/2024 7:57 AM SURVEILLANCE AGENT 10/14/2024 7:57 AM SURVEILLANCE AGENT us Guillermo Mayes MD LAB POCT ORDERABLES - DEVICE Final Result NICOLE RAYGOZA [address] Department [place] [address] * XR Chest 1 View - Portable - in AM (10/14/2024 6:00 AM SURVEILLANCE AGENT) Anatomical Region Laterality Modality Body, Chest N/A Computed Radiogr aphy 10/14/2024 7:54 AM SURVEILLANCE AGENT Impressions 10/14/2024 7:54 AM SURVEILLANCE AGENT Pacer leads are intact. Right IJ central venous catheter terminates in the superior cavoatrial junction. No pneumothorax or pleural effusion. Mediastinal silhouette within normal limits. Poststernotomy changes noted. Mild pulmonary vascular congestion. Electronically signed by: Jj Grubbs II, D.O. Narrative 10/14/2024 7:54 AM SURVEILLANCE AGENT EXAMINATION: XR CHEST 1 VIEW DATE: 10/14/2024 [...] lt * (ABNORMAL) eGFR (10/14/2024 5:20 AM SURVEILLANCE AGENT) eGFR 56(L) >=60 mL/min/1. 73 m2 Comment: [...] last reviewed 2021. Blood 10/14/2024 5:20 AM SURVEILLANCE AGENT 10/14/2024 5:30 AM SURVEILLANCE AGENT us Yvette Russell NP LAB BLOOD ORDERABLES Fin al Result [facility] [address] [address] Department [place] [address] * (ABNORMAL) CBC without differential (10/14/2024 5:20 AM SURVEILLANCE AGENT) WBC 10.5(H) 3.8 - 9.9 K/cumm Hgb 8.2(L) 13.0 - 17.5 g/dL [facility] Hct 24.8(L) 38.9 - 50.3 % [facility] Plt 192 150 - 400 K/cumm [facility] MPV 11.5 9.1 - 12.3 fL [facility] RBC 2.68(L) 4.30 - 5.80 M/cumm [facility] MCV 92.5 81.3 - 96.4 fL [facility] MCH 30.6 27.1 - 33.3 pg [facility] MCHC 33.1 32.3 - 35.7 g/dL [facility] CH RDW CV 14.5 11.1 - 14.9 % [facility] CH RDW SD 48.3(H) 35.7 - 48.1 fL [facility] NRBC abs 0.04(H) 0.00 - 0.01 K/cumm [facility] Blood 10/14/2024 5:20 AM SURVEILLANCE AGENT 10/14/2024 5:30 AM SURVEILLANCE AGENT Guillermo Mayes MD LAB BLOOD ORDERABLES Final R esult [facility] [address] [address] Department [employer] [address] [place], [place] [id number] * Magnesium (10/14/2024 5:20 AM SURVEILLANCE AGENT) Pathologist [facility] Magnesium 2.2 1.4 - 2.5 mg/dL Blood 10/14/2024 5:20 AM SURVEILLANCE AGENT 10/14/2024 5:30 AM SURVEILLANCE AGENT Yvette Russell NP LAB BLOOD ORDERABLES Fin al Result Performing Organization Address [facility] Co de Phone Number [facility] [address] [place] [address] * (ABNORMAL) Basic metabolic panel (10/14/2024 5:20 AM SURVEILLANCE AGENT) Pathologist [facility] Sodium 140 135 - 145 mmol/L Potassium, pl 4.1 3.3 - 4.9 mmol/L [facility] Chloride 104 97 - 110 mmol/L [facility] CO2 21(L) 22 - 32 mmol/L [facility] Anion gap 15 2 - 15 mmol/L [facility] BUN 46(H) 6 - 25 mg/dL [facility] Creatinine 1.30 0.80 - 1.30 mg/dL [facility] Glucose 146 70 - 199 mg/dL [facility] Comment: Interpretive Data Fasting glucose >/= [...] 10.3 mg/dL NICOLE Blood 10/14/2024 5:20 AM SURVEILLANCE AGENT 10/14/2024 5:30 AM SURVEILLANCE AGENT Guillermo Mayes MD LAB BLOOD ORDERABLES Final R esult Performing Organization Address [facility] Co de Phone Number NICOLE [address] [place] [address] * POCT glucose (10/13/2024 8:21 PM SURVEILLANCE AGENT) Glucose, POC 156 70 - 199 mg/dL Blood 10/13/2024 8:21 PM SURVEILLANCE AGENT 10/13/2024 8:21 PM SURVEILLANCE AGENT Guillermo Mayes MD LAB POCT ORDERABLES - DEVICE Final Result Performing Organization Address [facility] Co de Phone Number LOR[facility] [address] [place] [address] * POCT glucose (10/13/2024 5:27 PM SURVEILLANCE AGENT) Glucose, POC 118 70 - 199 mg/dL Blood 10/13/2024 5:27 PM SURVEILLANCE AGENT 10/13/2024 5:27 PM SURVEILLANCE AGENT Guillermo Mayes MD LAB POCT ORDERABLES - DEVICE Final Result Performing Organization Address [facility] Co de Phone Number NICOLE [address] [address] [facility] [place] [address] * XR Chest 1 Vw Portable (10/13/2024 4:35 PM SURVEILLANCE AGENT) Anatomical Region Laterality Modality Body, Chest N/A Computed Radiogr aphy 10/13/2024 4:38 PM SURVEILLANCE AGENT Impressions 10/13/2024 4:38 PM SURVEILLANCE AGENT No pneumothorax. Electronically signed by: Elena Bower M.D. Narrative 10/13/2024 4:38 PM SURVEILLANCE AGENT EXAMINATION: XR CHEST 1 VIEW HISTORY: The [...] failure. The distal tip of a retracted Birmingham-Fausto catheter is in the superior vena cava. [...] failure. The distal tip of a retracted Birmingham-Fausto catheter is in the superior vena cava. IMPRESSION: No pneumothorax. Electronically signed by: Elena Bower M.D. Teresa Knox MD IMG XR PROCEDURES Kamla l Result * ICD LEAD DUAL 2 LEADS PPM OR ICD (10/13/2024 3:51 PM SURVEILLANCE AGENT) Anatomical Region Laterality Modality X-Ray Angiograph y 10/13/2024 Narrative 10/19/2024 1:49 PM CDT [employer] Job ID: [id number] [employer] Document ID: [id number] Dictated date/time: [id number] PACEMAKER IMPLANTATION An 79-year-old patient, status post CABG and AVR, has developed episodes of PAF and asystole. Dual-chamber pacemaker recommended. REFERRING PHYSICIANS Dr. Flaca Giles and Dr. Mayes. IMPLANTING PHYSICIAN Dr. Knox. PROCEDURES 1. Implantation of a dual-chamber pacemaker system by [employer]. 2. Venogram. 3. Insertion of a Tyrx pouch. PROCEDURE He was brought to the physical laboratory assistant. Left neck subclavicular was prepped in the usual sterile fashion. 1% lidocaine with epi was used. Venogram obtained. Pacemaker pocket was created. Access obtained axillary subclavian vein. Two J wires were advanced over which a 7 SafeSheath and a 6 SafeSheath were advanced. Both the sheaths were flushed confirming venous return. Through the 7 sheath a Medtronic ventricular pacing lead, [id number] was advanced to the RV apex, low ventricular septum and screwed in place. Through the second sheath, a Medtronic atrial pacing lead [id number] was advanced to the atrial appendage and screwed in place. Thresholds: Atrium 0.4 milliseconds, 0.625 V, 342 ohms, 2 mV. Ventricle 0.4 millisecond, 0.5 V, 798 ohms, 12.2 mV. No extracardiac stimulation with 10 V cardiac pacing stimulus in either chambers. The leads were secured to subcutaneous tissues using 0 Ethibond, connected to a pacemaker generator from [employer] [id number] noted to be pacing and sensing appropriately. [...] pouch. 3. Venogram. Job ID/Internal Job ID: [id number] us Brittonmary Larson NP CV ELECTROPHYSIOLOGY PROCS F inal Result * POCT glucose (10/13/2024 12:45 PM SURVEILLANCE AGENT) Glucose, POC 120 70 - 199 mg/dL Blood 10/13/2024 12:4 5 PM SURVEILLANCE AGENT 10/13/2024 12:45 PM SURVEILLANCE AGENT us Guillermo Mayes MD LAB POCT ORDERABLES - DEVICE Final Result Performing Organization Address [facility] Co de Phone Number NICOLE [address] [facility] Department [place] [address] * ECG 12 lead (10/13/2024 11:59 AM SURVEILLANCE AGENT) 10/13/2024 11:5 9 AM SURVEILLANCE AGENT Narrative [facility] - 10/13/2024 3:23 PM SURVEILLANCE AGENT Vent Rate: 113 bpm RR Interval: 527 msec HI Interval: 160 msec QRS Duration: 134 msec QT Interval: 351 msec QTC Interval: 418 msec P-R-T Hulett: 68 - -11 - 69 degrees IMPRESSION: SINUS TACHYCARDIA INTRAVENTRICULAR CONDUCTION DELAY [130+ ms QRS DURATION] ABNORMAL ECG NO CHANGE FROM PREVIOUS TRACING NOTED Electronically Signed By: Jeffrey Li MD us Carmen Peñaloza NP ECG ORDERABLES Final Result Performing Organization Address [facility] de Phone Number [facility] [employer] [facility] * ECG 12 lead (10/13/2024 9:36 AM SURVEILLANCE AGENT) 10/13/2024 9:36 AM SURVEILLANCE AGENT Narrative [facility] - 10/13/2024 11:18 AM SURVEILLANCE AGENT Vent Rate: 107 bpm RR Interval: 557 msec HI Interval: 109 msec QRS Duration: 141 msec QT Interval: 445 msec QTC Interval: 508 msec P-R-T Hulett: -9 - 99 - 111 degrees IMPRESSION: ELECTRONIC ATRIAL PACEMAKER BORDERLINE RIGHT AXIS DEVIATION [QRS AXIS > 90] INTRAVENTRICULAR CONDUCTION DELAY [130+ ms QRS DURATION] INFERIOR MYOCARDIAL INFARCTION , POSSIBLY ACUTE [40+ ms Q WAVE AND/OR ST/T ABNORMALITY IN II/aVF] MARKED ST ELEVATION, CONSIDER ANTEROSEPTAL INJURY [MARKED ST ELEVATION W/O NORMALLY INFLECTED T-WAVE IN V1-V4] ACUTE NE PACER ACTIVITY NEW ST ELEVATIONS MORE MARKED Electronically Signed By: Kacy Knox MD us Migdalia Salcedo ABRASIVE GRINDER ECG ORDERABLES Final Resu lt [facility] * POCT glucose (10/13/2024 7:56 AM SURVEILLANCE AGENT) Glucose, POC 114 70 - 199 mg/dL Blood 10/13/2024 7:56 AM SURVEILLANCE AGENT 10/13/2024 7:56 AM SURVEILLANCE AGENT us Guillermo Mayes MD LAB POCT ORDERABLES - DEVICE Final Result Performing Organization Address [facility] Co de Phone Number NICOLE [address] [address] Department [place] [address] * XR Chest 1 View - Portable - in AM (10/13/2024 6:24 AM SURVEILLANCE AGENT) Anatomical Region Laterality Modality Body, Chest N/A Computed Radiogr aphy 10/13/2024 8:40 AM SURVEILLANCE AGENT Impressions 10/13/2024 8:40 AM SURVEILLANCE AGENT No failure. Electronically signed by: Elena Bower M.D. Narrative 10/13/2024 8:40 AM SURVEILLANCE AGENT EXAMINATION: XR CHEST 1 VIEW HISTORY: The patient is an 79-year-old male who has had cardiac surgery. Comparison is made with the previous study dated 10/12/2024. TECHNIQUE: AP portable view of the chest. FINDINGS: Borderline cardiomegaly with aortic atherosclerosis. No failure. Subsegmental atelectasis is seen in the left upper lobe with the remaining lungs being clear. The distal tip of a retracted Birmingham-Fausto catheter is in the superior vena cava. [...] clear. The distal tip of a retracted Birmingham-Fausto catheter is in the superior vena cava. IMPRESSION: No failure. Electronically signed by: Elena Bower M.D. us Guillermo Mayes MD IMG XR PROCEDURES Final Resu lt * eGFR (10/13/2024 5:50 AM SURVEILLANCE AGENT) eGFR 61 >=60 mL/min/1. 73 m2 Comment: [...] last reviewed 2021. Blood 10/13/2024 5:50 AM SURVEILLANCE AGENT 10/13/2024 5:50 AM SURVEILLANCE AGENT us Yvette Russell NP LAB BLOOD ORDERABLES Fin al Result NICOLE [address] [address] Department [place] [address] * aPTT (10/13/2024 5:50 AM SURVEILLANCE AGENT) aPTT 28 28 - 38 sec Comment: Interpretive Data Heparin therapeutic range: 66.0 - 100.0 seconds. Range based on correlation with therapeutic heparin activity range of 0.3 - 0.7 Units/mL. Current interpretive data was last revised on 2023. Blood 10/13/2024 5:50 AM SURVEILLANCE AGENT 10/13/2024 5:50 AM SURVEILLANCE AGENT Migdalia Salcedo LAB BLOOD ORDERABLES Final Result Performing Organization Address [facility] de Phone Number NICOLE [address] [address] [facility] [place] [address] * Protime-INR (10/13/2024 5:50 AM SURVEILLANCE AGENT) PT 12.1 9.7 - 13.0 sec INR 1.12 0.90 - 1.20 [facility] Comment: Interpretive data Oral anticoagulant therapeutic ranges: Venous thromboembolism prophylaxis or treatment: 2.0-3.0 CARDIOLOGY Standard range: 2.0-3.0 High-intensity range: 2.5-3.5 Refer to indication-specific guidelines for appropriate target ranges for prosthetic heart valve replacement. Current interpretive data was last revised on 2019. Blood 10/13/2024 5:50 AM SURVEILLANCE AGENT 10/13/2024 5:50 AM SURVEILLANCE AGENT [facility] BLOOD ORDERABLES Final Result Performing Organization Address [facility] de Phone Number LORINACE RAYGOZA [address] [address] [facility] [place] [address] * (ABNORMAL) CBC without differential (10/13/2024 5:50 AM SURVEILLANCE AGENT) WBC 8.6 3.8 - 9.9 K/cumm Hgb 8.1(L) 13.0 - 17.5 g/dL [facility] Hct 24.7(L) 38.9 - 50.3 % [facility] Plt 135(L) 150 - 400 K/cumm [facility] MPV 12.0 9.1 - 12.3 fL [facility] RBC 2.68(L) 4.30 - 5.80 M/cumm [facility] MCV 92.2 81.3 - 96.4 fL [facility] MCH 30.2 27.1 - 33.3 pg [facility] MCHC 32.8 32.3 - 35.7 g/dL [facility] RDW CV 14.4 11.1 - 14.9 % [facility] RDW SD 48.3(H) 35.7 - 48.1 fL [facility] NRBC abs 0.00 0.00 - 0.01 K/cumm [facility] Blood 10/13/2024 5:50 AM SURVEILLANCE AGENT 10/13/2024 5:50 AM SURVEILLANCE AGENT Guillermo Mayes MD LAB BLOOD ORDERABLES Final R esult Performing Organization Address [facility]/ZIP Co de Phone Number [facility] [address] [address] [place] [address] * Magnesium (10/13/2024 5:50 AM SURVEILLANCE AGENT) [facility] Magnesium 2.2 1.4 - 2.5 mg/dL Blood 10/13/2024 5:50 AM SURVEILLANCE AGENT 10/13/2024 5:50 AM SURVEILLANCE AGENT Yvette Russell NP LAB BLOOD ORDERABLES Fin al Result Performing Organization Address [facility] de Phone Number [facility] [address] [address] [place] [address] * (ABNORMAL) Basic metabolic panel (10/13/2024 5:50 AM SURVEILLANCE AGENT) Pathologist [facility] Sodium 140 135 - 145 mmol/L Potassium, pl 3.6 3.3 - 4.9 mmol/L [facility] Chloride 105 97 - 110 mmol/L [facility] CO2 23 22 - 32 mmol/L [facility] Anion gap 12 2 - 15 mmol/L [facility] BUN 37(H) 6 - 25 mg/dL [facility] Creatinine 1.20 0.80 - 1.30 mg/dL [facility] Glucose 136 70 - 199 mg/dL [facility] Comment: Interpretive Data Fasting glucose >/= [...] 2022. Calcium 9.1 8.5 - 10.3 mg/dL [facility] Blood 10/13/2024 5:50 AM SURVEILLANCE AGENT 10/13/2024 5:50 AM SURVEILLANCE AGENT Guillermo Mayes MD LAB BLOOD ORDERABLES Final R esult Performing Organization Address [facility] Co de Phone Number [facility] [address] [address] [facility] [place] [address] * POCT glucose (10/12/2024 9:59 PM SURVEILLANCE AGENT) Glucose, POC 125 70 - 199 mg/dL Blood 10/12/2024 9:59 PM SURVEILLANCE AGENT 10/12/2024 9:59 PM SURVEILLANCE AGENT Guillermo Mayes MD LAB POCT ORDERABLES - DEVICE Final Result Performing Organization Address [facility] Phone Number [facility] [address] [address] [facility] [place] [address] * POCT glucose (10/12/2024 9:27 PM SURVEILLANCE AGENT) Glucose, POC 137 70 - 199 mg/dL Blood 10/12/2024 9:27 PM SURVEILLANCE AGENT 10/12/2024 9:27 PM SURVEILLANCE AGENT Guillermo Mayes MD LAB POCT ORDERABLES - DEVICE Final Result Performing Organization Address [facility] Co or Phone Number [facility] [address] [address] [facility] [place] [address] * POCT glucose (10/12/2024 5:44 PM SURVEILLANCE AGENT) Glucose, POC 115 70 - 199 mg/dL Blood 10/12/2024 5:44 PM SURVEILLANCE AGENT 10/12/2024 5:44 PM SURVEILLANCE AGENT Guillermo Mayes MD LAB POCT ORDERABLES - DEVICE Final Result Performing Organization Address [facility] Co de Phone Number NICOLE [address] [address] [facility] [place] [address] * POCT glucose (10/12/2024 1:00 PM SURVEILLANCE AGENT) Glucose, POC 140 70 - 199 mg/dL Blood 10/12/2024 1:00 PM SURVEILLANCE AGENT 10/12/2024 1:00 PM SURVEILLANCE AGENT Guillermo Mayes MD LAB POCT ORDERABLES - DEVICE Final Result Performing Organization Address [facility] [place] [address] [address] [facility] [place] [address] * POCT glucose (10/12/2024 7:53 AM SURVEILLANCE AGENT) Glucose, POC 131 70 - 199 mg/dL Blood 10/12/2024 7:53 AM SURVEILLANCE AGENT 10/12/2024 7:53 AM SURVEILLANCE AGENT Guillermo Mayes MD LAB POCT ORDERABLES - DEVICE Final Result Performing Organization Address [facility] [place] [address] [address] [facility] [place] [address] * XR Chest 1 View - Portable - in AM (10/12/2024 6:11 AM SURVEILLANCE AGENT) Anatomical Region Laterality Modality Body, Chest N/A Computed Radiogr aphy 10/12/2024 8:39 AM SURVEILLANCE AGENT Impressions 10/12/2024 8:39 AM SURVEILLANCE AGENT Cardiomegaly with no failure. Electronically signed by: Elena Bower M.D. Narrative 10/12/2024 8:39 AM SURVEILLANCE AGENT EXAMINATION: XR CHEST 1 VIEW HISTORY: The [...] pneumothorax. The distal tip of the retracted [place]-Fausto catheter is in the superior vena cava. [...] pneumothorax. The distal tip of the retracted [place]-Fausto catheter is in the superior vena cava. IMPRESSION: Cardiomegaly with no failure. Electronically signed by: Elena Bower M.D. Guillermo Mayes MD IMG XR PROCEDURES Final Resu lt * eGFR (10/12/2024 4:30 AM SURVEILLANCE AGENT) eGFR 62 >=60 mL/min/1. 73 m2 Comment: [...] last reviewed 2021. Blood 10/12/2024 4:30 AM SURVEILLANCE AGENT 10/12/2024 5:11 AM SURVEILLANCE AGENT us Yvette Russell NP LAB BLOOD ORDERABLES Fin al Result Performing Organization Address [facility] Co de Phone Number LORINACE RAYGOZA [address] [address] Liu [place] [address] * (ABNORMAL) CBC without differential (10/12/2024 4:30 AM SURVEILLANCE AGENT) WBC 9.7 3.8 - 9.9 K/cumm Hgb [...] RDW SD 50.0(H) 35.7 - 48.1 fL [facility] NRBC abs 0.00 0.00 - 0.01 K/cumm [facility] Blood 10/12/2024 4:30 AM SURVEILLANCE AGENT 10/12/2024 5:08 AM SURVEILLANCE AGENT us Guillermo Mayes MD LAB BLOOD ORDERABLES Final R esult LORINACE RAYGOZA [address] [address] Liu Department [place] [address] * Magnesium (10/12/2024 4:30 AM SURVEILLANCE AGENT) Magnesium 2.2 1.4 - 2.5 mg/dL Blood 10/12/2024 4:30 AM SURVEILLANCE AGENT 10/12/2024 5:11 AM SURVEILLANCE AGENT Yvette Russell NP LAB BLOOD ORDERABLES Fin al Result Performing Organization Address [facility] Co de Phone Number [facility] [address] [address] Department [place] [address] * (ABNORMAL) Basic metabolic panel (10/12/2024 4:30 AM SURVEILLANCE AGENT) Sodium 141 135 - 145 mmol/L Potassium, pl 4.1 3.3 - 4.9 mmol/L [facility] Chloride 106 97 - 110 mmol/L [facility] CO2 22 22 - 32 mmol/L [facility] Anion gap 13 2 - 15 mmol/L [facility] BUN 30(H) 6 - 25 mg/dL [facility] Creatinine 1.19 0.80 - 1.30 mg/dL [facility] Glucose 122 70 - 199 mg/dL [facility] Comment: Interpretive Data Fasting glucose >/= [...] 10.3 mg/dL [facility] Blood 10/12/2024 4:30 AM SURVEILLANCE AGENT 10/12/2024 5:11 AM SURVEILLANCE AGENT Guillermo Mayes MD LAB BLOOD ORDERABLES Final R esult Performing Organization Address City/State/[facility] Co de Phone Number NICOLE RAYGOZA [address] Jose Manuel [facility] [place] [address] * POCT glucose (10/11/2024 8:46 PM SURVEILLANCE AGENT) Glucose, POC 149 70 - 199 mg/dL Blood 10/11/2024 8:46 PM SURVEILLANCE AGENT 10/11/2024 8:46 PM SURVEILLANCE AGENT Guillermo Mayes MD LAB POCT ORDERABLES - DEVICE Final Result Performing Organization Address [facility] de Phone Number NICOLE RAYGOZA [address] [address] Manuel [facility] [place] [address] * POCT glucose (10/11/2024 5:13 PM SURVEILLANCE AGENT) Glucose, POC 194 70 - 199 mg/dL Blood 10/11/2024 5:13 PM SURVEILLANCE AGENT 10/11/2024 5:13 PM SURVEILLANCE AGENT Guillermo Mayes MD LAB POCT ORDERABLES - DEVICE Final Result Performing Organization Address [facility] de Phone Number NICOLE [address] Jose Manuel [facility] [place] [address] * POCT glucose (10/11/2024 12:12 PM SURVEILLANCE AGENT) Glucose, POC 160 70 - 199 mg/dL Blood 10/11/2024 12:1 2 PM SURVEILLANCE AGENT 10/11/2024 12:12 PM SURVEILLANCE AGENT Guillermo Mayes MD LAB POCT ORDERABLES - DEVICE Final Result Performing Organization Address [facility] Co de Phone Number NICOLE [address] [address] [facility] [place] [address] * POCT glucose (10/11/2024 8:24 AM SURVEILLANCE AGENT) Glucose, POC 144 70 - 199 mg/dL Blood 10/11/2024 8:24 AM SURVEILLANCE AGENT 10/11/2024 8:24 AM SURVEILLANCE AGENT us Guillermo Mayes MD LAB POCT [place] - [place] [address] [address] Department of Laboratories [place] [phone] * Critical Care (10/11/2024 6:32 AM SURVEILLANCE AGENT) Narrative Case Guerrero MD - 10/11/2024 6:32 AM SURVEILLANCE AGENT Case Guerrero MD 10/11/2024 1:49 PM Critical [...] plan with the ICU team and other medical/virtualization consultant staff, making frequent assessments and decisions [...] Portable - in AM (10/11/2024 5:59 AM SURVEILLANCE AGENT) Anatomical Region Laterality Modality Body, Chest N/A Computed Radiogr aphy 10/11/2024 9:45 AM SURVEILLANCE AGENT Impressions 10/11/2024 9:45 AM SURVEILLANCE AGENT FINDINGS/IMPRESSION: No pneumothorax or pleural effusion. Bilateral thoracostomy tubes. Poststernotomy changes. Pulmonary arterial catheter is appropriately positioned. Mediastinal drain is appropriately positioned. No consolidation. Electronically signed by: Jj Grubbs II, D.O. Narrative 10/11/2024 9:45 AM SURVEILLANCE AGENT EXAMINATION: XR CHEST 1 VIEW DATE: 10/11/2024 [...] * Oxyhemoglobin, pulmonary artery (10/11/2024 5:30 AM SURVEILLANCE AGENT) Oxyhemoglobin, PA 71.3 % Comment: Interpretive Data No reference range established. Current interpretive data was last revised 2019. Blood 10/11/2024 5:30 AM SURVEILLANCE AGENT 10/11/2024 5:35 AM SURVEILLANCE AGENT Yvette Russell NP LAB BLOOD ORDERABLES [facility] al Result NICOLE [address] [address] Liu Department [place] [address] * (ABNORMAL) Calcium, ionized, whole blood (10/11/2024 5:22 AM SURVEILLANCE AGENT) Ca, ionized, bld 4.49(L) 4.50 - 5.10 mg/dL Blood 10/11/2024 5:22 AM SURVEILLANCE AGENT 10/11/2024 5:50 AM SURVEILLANCE AGENT us Yvette Russell NP LAB BLOOD ORDERABLES Fin al Result Performing Organization Address [facility] Co de Phone Number NICOLE RAYGOZA [address] [place] [address] * (ABNORMAL) eGFR (10/11/2024 5:22 AM SURVEILLANCE AGENT) eGFR 58(L) >=60 mL/min/1. 73 m2 Comment: [...] last reviewed 2021. Blood 10/11/2024 5:22 AM SURVEILLANCE AGENT 10/11/2024 5:50 AM SURVEILLANCE AGENT us Guillermo Mayes MD LAB BLOOD ORDERABLES Final R esult Performing Organization Address [facility]/ZIP Co de Phone Number NICOLE RAYGOZA [address] Department of Laboratories [place], [place] [id number] * (ABNORMAL) CBC without differential (10/11/2024 5:22 AM SURVEILLANCE AGENT) WBC 7.2 3.8 - 9.9 K/cumm Hgb 8.3(L) 13.0 - 17.5 g/dL [facility] Hct 24.6(L) 38.9 - 50.3 % [facility] Plt 85(L) 150 - 400 K/cumm [facility] MPV 11.2 9.1 - 12.3 fL [facility] RBC 2.74(L) 4.30 - 5.80 M/cumm [facility] MCV 89.8 81.3 - 96.4 fL [facility] MCH 30.3 27.1 - 33.3 pg [facility] MCHC 33.7 32.3 - 35.7 g/dL [facility] RDW CV 14.2 11.1 - 14.9 % [facility] RDW SD 45.5 35.7 - 48.1 fL [facility] NRBC abs 0.00 0.00 - 0.01 K/cumm [facility] Blood 10/11/2024 5:22 AM SURVEILLANCE AGENT 10/11/2024 5:31 AM SURVEILLANCE AGENT Guillermo Mayes MD LAB BLOOD ORDERABLES Final R esult Performing Organization Address [facility] de Phone Number [facility] [address] [address] Liu [facility] [place] [address] * Phosphorus (10/11/2024 5:22 AM SURVEILLANCE AGENT) Phosphorus, pl 3.3 2.3 - 4.5 mg/dL Blood 10/11/2024 5:22 AM SURVEILLANCE AGENT 10/11/2024 5:31 AM SURVEILLANCE AGENT Yvette Russell [employer] LAB BLOOD ORDERABLES Fin al Result Performing Organization Address [facility] de Phone Number [facility] [address] [address] [place] [address] * Magnesium (10/11/2024 5:22 AM SURVEILLANCE AGENT) Magnesium 2.2 1.4 - 2.5 mg/dL Blood 10/11/2024 5:22 AM SURVEILLANCE AGENT 10/11/2024 5:31 AM SURVEILLANCE AGENT Yvette Russell NP LAB BLOOD ORDERABLES Fin al Result Performing Organization Address [facility] de Phone Number [facility] [address] [address] Liu Department [place] [address] * Basic metabolic panel (10/11/2024 5:22 AM SURVEILLANCE AGENT) Sodium 142 135 - 145 mmol/L Potassium, [...] 2022. Calcium 8.5 8.5 - 10.3 mg/dL [facility] Blood 10/11/2024 5:22 AM SURVEILLANCE AGENT 10/11/2024 5:31 AM SURVEILLANCE AGENT Guillermo Mayes MD LAB BLOOD ORDERABLES Final R esult Performing Organization Address [facility]/ZIP Co de Phone Number [facility] [address] [facility] [place] [address] * POCT glucose (10/11/2024 5:20 AM SURVEILLANCE AGENT) Glucose, POC 132 70 - 199 mg/dL Blood 10/11/2024 5:20 AM SURVEILLANCE AGENT 10/11/2024 5:20 AM SURVEILLANCE AGENT Guillermo Mayes MD LAB POCT ORDERABLES - DEVICE Final Result Performing Organization Address [facility] Co de Phone Number NICOLE RAYGOZA [address] Jose Manuel [facility] [place] [address] * POCT glucose (10/11/2024 4:26 AM SURVEILLANCE AGENT) Glucose, POC 126 70 - 199 mg/dL Blood 10/11/2024 4:26 AM SURVEILLANCE AGENT 10/11/2024 4:26 AM SURVEILLANCE AGENT Guillermo Mayes MD LAB POCT ORDERABLES - DEVICE Final Result Performing Organization Address [facility] de Phone Number NICOLE RAYGOZA [address] Jose Manuel [facility] [place] [address] * POCT glucose (10/11/2024 3:23 AM SURVEILLANCE AGENT) Glucose, POC 126 70 - 199 mg/dL Blood 10/11/2024 3:23 AM SURVEILLANCE AGENT 10/11/2024 3:23 AM SURVEILLANCE AGENT Guillermo Mayes MD LAB POCT ORDERABLES - DEVICE Final Result Performing Organization Address [facility] de Phone Number NICOLE RAYGOZA [address] [address] [facility] [place] [address] * POCT glucose (10/11/2024 2:26 AM SURVEILLANCE AGENT) Glucose, POC 120 70 - 199 mg/dL Blood 10/11/2024 2:26 AM SURVEILLANCE AGENT 10/11/2024 2:26 AM SURVEILLANCE AGENT Guillermo Mayes MD LAB POCT ORDERABLES - DEVICE Final Result Performing Organization Address [facility] Co de Phone Number NICOLE RAYGOZA [address] [place] [address] * POCT glucose (10/11/2024 1:28 AM SURVEILLANCE AGENT) Glucose, POC 120 70 - 199 mg/dL Blood 10/11/2024 1:28 AM SURVEILLANCE AGENT 10/11/2024 1:28 AM SURVEILLANCE AGENT us Guillermo Mayes MD LAB POCT ORDERABLES - DEVICE Final Result Performing Organization Address [facility] Co de Phone Number NICOLE RAYGOZA [address] Jose Manuel [facility] [place] [address] * POCT glucose (10/11/2024 12:27 AM SURVEILLANCE AGENT) Glucose, POC 124 70 - 199 mg/dL Blood 10/11/2024 12:2 7 AM SURVEILLANCE AGENT 10/11/2024 12:27 AM SURVEILLANCE AGENT Guillermo Mayes MD LAB POCT ORDERABLES - DEVICE Final Result Performing Organization Address [facility] de Phone Number LORINACE RAYGZOA [address] [address] Manuel [facility] [place] [address] * POCT glucose (10/10/2024 11:26 PM SURVEILLANCE AGENT) Glucose, POC 112 70 - 199 mg/dL Blood 10/10/2024 11:2 6 PM SURVEILLANCE AGENT 10/10/2024 11:26 PM SURVEILLANCE AGENT Guillermo Mayes MD LAB POCT ORDERABLES - DEVICE Final Result Performing Organization Address [facility] Co de Phone Number LORINACE RAYGOZA [address] [address] [facility] [place] [address] * POCT glucose (10/10/2024 10:27 PM SURVEILLANCE AGENT) Glucose, POC 120 70 - 199 mg/dL Blood 10/10/2024 10:2 7 PM SURVEILLANCE AGENT 10/10/2024 10:27 PM SURVEILLANCE AGENT us Guillermo Mayes MD LAB POCT ORDERABLES - DEVICE Final Result Performing Organization Address [facility] Co de Phone Number NICOLE RAYGOZA [address] [address] Liu Department [place] [address] * POCT glucose (10/10/2024 9:26 PM SURVEILLANCE AGENT) Glucose, POC 118 70 - 199 mg/dL Blood 10/10/2024 9:26 PM SURVEILLANCE AGENT 10/10/2024 9:26 PM SURVEILLANCE AGENT us Guillermo Mayes MD LAB POCT ORDERABLES - [place] [address] [address] Department [place] [address] * Critical Care (10/10/2024 7:59 PM SURVEILLANCE AGENT) Narrative Deo Biggs MD - 10/10/2024 7:59 PM SURVEILLANCE AGENT Deo Biggs MD 10/11/2024 5:48 AM Critical [...] plan with the ICU team and other medical/virtualization consultant staff, making frequent assessments and decisions [...] Result * POCT glucose (10/10/2024 7:12 PM SURVEILLANCE AGENT) Glucose, POC 102 70 - 199 mg/dL Blood 10/10/2024 7:12 PM SURVEILLANCE AGENT 10/10/2024 7:12 PM SURVEILLANCE AGENT us Guillermo Mayes MD LAB POCT ORDERABLES - DEVICE Final Result Performing Organization Address [facility] de Phone Number NICOLE RAYGOZA [address] [address] [facility] [place] [address] * POCT glucose (10/10/2024 6:06 PM SURVEILLANCE AGENT) Glucose, POC 128 70 - 199 mg/dL Blood 10/10/2024 6:06 PM SURVEILLANCE AGENT 10/10/2024 6:06 PM SURVEILLANCE AGENT us Guillermo Mayes MD LAB POCT ORDERABLES - DEVICE Final Result Performing Organization Address [facility] de Phone Number NICOLE [address] Jose Manuel [facility] [place] [address] * POCT glucose (10/10/2024 5:02 PM SURVEILLANCE AGENT) Glucose, POC 127 70 - 199 mg/dL Blood 10/10/2024 5:02 PM SURVEILLANCE AGENT 10/10/2024 5:02 PM SURVEILLANCE AGENT Guillermo Mayes MD LAB POCT ORDERABLES - DEVICE Final Result Performing Organization Address [facility] de Phone Number NICOLE [address] [address] [facility] [place] [address] * POCT glucose (10/10/2024 4:06 PM SURVEILLANCE AGENT) Glucose, POC 125 70 - 199 mg/dL Blood 10/10/2024 4:06 PM SURVEILLANCE AGENT 10/10/2024 4:06 PM SURVEILLANCE AGENT us Guillermo Mayes MD LAB POCT ORDERABLES - DEVICE Final Result Performing Organization Address [facility] Co de Phone Number NICOLE RAYGOZA [address] [address] [facility] [place] [address] * POCT glucose (10/10/2024 3:02 PM SURVEILLANCE AGENT) Glucose, POC 116 70 - 199 mg/dL Blood 10/10/2024 3:02 PM SURVEILLANCE AGENT 10/10/2024 3:02 PM SURVEILLANCE AGENT Guillermo Mayes MD LAB POCT ORDERABLES - DEVICE Final Result Performing Organization Address [facility] de Phone Number NICOLE RAYGOZA [address] [address] Manuel [facility] [place] [address] * POCT glucose (10/10/2024 1:58 PM SURVEILLANCE AGENT) Glucose, POC 129 70 - 199 mg/dL Blood 10/10/2024 1:58 PM SURVEILLANCE AGENT 10/10/2024 1:58 PM SURVEILLANCE AGENT Guillermo Mayes MD LAB POCT ORDERABLES - DEVICE Final Result Performing Organization Address [facility] de Phone Number NICOLE RAYGOZA [address] [address] [facility] [place] [address] * Calcium, ionized, whole blood (10/10/2024 1:54 PM SURVEILLANCE AGENT) Pathologist [facility] Ca, ionized, bld 4.54 4.50 - 5.10 mg/dL Blood 10/10/2024 1:54 PM SURVEILLANCE AGENT 10/10/2024 2:04 PM SURVEILLANCE AGENT Guillermo Mayes MD LAB BLOOD ORDERABLES Final R esult Performing Organization Address [facility] Co de Phone Number NICOLE RAYGOZA [address] [address] [facility] [place] [address] * eGFR (10/10/2024 1:54 PM SURVEILLANCE AGENT) eGFR 62 >=60 mL/min/1. 73 m2 Comment: [...] last reviewed 2021. Blood 10/10/2024 1:54 PM SURVEILLANCE AGENT 10/10/2024 2:04 PM SURVEILLANCE AGENT us Guillermo Mayes MD LAB BLOOD ORDERABLES Final R esult [facility] [address] [address] Liu Department [place] [address] * (ABNORMAL) Differential, auto (10/10/2024 1:54 PM SURVEILLANCE AGENT) Neutrophil abs 5.9 1.5 - 6.5 K/cumm Imm gran abs 0.0 0.0 - 0.1 K/cumm [facility] Lymphocyte abs 0.4(L) 0.8 - 3.3 K/cumm [facility] Monocyte abs 0.5 0.2 - 0.8 K/cumm [facility] Eosinophil abs 0.0 0.0 - 0.5 K/cumm [facility] Basophil abs 0.0 0.0 - 0.1 K/cumm [facility] Neutrophil pct 86.5 % [facility] Comment: Interpretive Data Percent cell count reference ranges are not reported, since discordance with absolute values may lead to misinterpretation of CBC data. Current Interpretive Data was last revised on 2017. Imm gran pct 0.6 % [facility] Comment: Interpretive Data Percent cell count reference [...] revised on 2017. Monocyte pct 7.0 % [facility] Comment: Interpretive Data Percent cell count reference [...] revised on 2017. Basophil pct 0.3 % [facility] Comment: Interpretive Data Percent cell count reference ranges are not reported, since discordance with absolute values may lead to misinterpretation of CBC data. Current Interpretive Data was last revised on 2017. Blood 10/10/2024 1:54 PM SURVEILLANCE AGENT 10/10/2024 2:04 PM SURVEILLANCE AGENT us Guillermo Mayes MD LAB BLOOD ORDERABLES Final R esult [facility] [address] [address] Department [place] [address] * (ABNORMAL) CBC with auto differential (10/10/2024 1:54 PM SURVEILLANCE AGENT) WBC 6.8 3.8 - 9.9 K/cumm Hgb 8.9(L) 13.0 - 17.5 g/dL [facility] Hct 26.4(L) 38.9 - 50.3 % [facility] Plt 106(L) 150 - 400 K/cumm [facility] MPV 10.9 9.1 - 12.3 fL [facility] RBC 2.99(L) 4.30 - 5.80 M/cumm [...] K/cumm [facility] Blood 10/10/2024 1:54 PM SURVEILLANCE AGENT 10/10/2024 2:04 PM SURVEILLANCE AGENT Guillermo Mayes MD LAB BLOOD ORDERABLES Final R esult [facility] [address] [address] [place], [place] [id number] * Magnesium (10/10/2024 1:54 PM SURVEILLANCE AGENT) [facility] Magnesium 2.2 1.4 - 2.5 mg/dL Blood 10/10/2024 1:54 PM SURVEILLANCE AGENT 10/10/2024 2:04 PM SURVEILLANCE AGENT Guillermo Mayes MD LAB BLOOD ORDERABLES Final R [facility] Performing Organization Address [facility] Co de Phone Number [facility] [address] [address] [place] [address] * (ABNORMAL) Basic metabolic panel (10/10/2024 1:54 PM SURVEILLANCE AGENT) Pathologist [facility] Sodium 142 135 - 145 mmol/L Potassium, pl 3.9 3.3 - 4.9 mmol/L [facility] Chloride 108 97 - 110 mmol/L [facility] CO2 21(L) 22 - 32 mmol/L [facility] Anion gap 13 2 - 15 mmol/L [facility] BUN 17 6 - 25 mg/dL [facility] Creatinine 1.19 0.80 - 1.30 mg/dL [facility] Glucose 123 70 - 199 mg/dL [facility] Comment: Interpretive Data Fasting glucose >/= [...] 2022. Calcium 8.4(L) 8.5 - 10.3 mg/dL [facility] Blood 10/10/2024 1:54 PM SURVEILLANCE AGENT 10/10/2024 2:04 PM SURVEILLANCE AGENT Guillermo Mayes MD LAB BLOOD ORDERABLES Final R esult Performing Organization Address [facility] Co de Phone Number NICOEL [address] [address] [place] [address] * POCT glucose (10/10/2024 12:58 PM SURVEILLANCE AGENT) Glucose, POC 141 70 - 199 mg/dL Blood 10/10/2024 12:5 8 PM SURVEILLANCE AGENT 10/10/2024 12:58 PM SURVEILLANCE AGENT Guillermo Mayes MD LAB POCT ORDERABLES - DEVICE Final Result Performing Organization Address [facility] Co de Phone Number [facility] [address] [address] [place] [address] * Urinalysis reflex to microscopic (10/10/2024 12:27 PM SURVEILLANCE AGENT) Color, ur Straw Yellow Clarity, ur Clear Clear [facility] Specific gravity, ur 1.007 1.003 - 1.030 [facility] pH, urine 5.0 [facility] Comment: Interpretive Data U rine pH is affected by diet, medications, systemic acid-base disturbances, and renal tubular function. pH may affect urinary stone formation. For example, urine pH below 6.0 may help reduce the tendency for calcium phosphate stones and pH greater than 6.0 may reduce the tendency for uric acid stone formation. Source: [facility] Current Interpretive Data was last revised on [...] [facility] Urine 10/10/2024 12:2 7 PM SURVEILLANCE AGENT 10/10/2024 12:35 PM SURVEILLANCE AGENT Yvette Russell NP LAB URINE ORDERABLES Fin al Result Performing Organization Address [facility] Co de Phone Number LORINACE RAYGOZA [address] [address] [place] [address] * POCT glucose (10/10/2024 11:53 AM SURVEILLANCE AGENT) Glucose, POC 151 70 - 199 mg/dL Blood 10/10/2024 11:5 3 AM SURVEILLANCE AGENT 10/10/2024 11:53 AM SURVEILLANCE AGENT Guillermo Mayes MD LAB POCT ORDERABLES - DEVICE Final Result Performing Organization Address [facility] de Phone Number LORINACE RAYGOZA [address] [address] [place] [address] * POCT glucose (10/10/2024 10:48 AM SURVEILLANCE AGENT) Glucose, POC 150 70 - 199 mg/dL Blood 10/10/2024 10:4 8 AM SURVEILLANCE AGENT 10/10/2024 10:48 AM SURVEILLANCE AGENT Guillermo Mayes MD LAB POCT ORDERABLES - DEVICE Final Result Performing Organization Address [facility] Co de Phone Number LORINACE [address] [address] Liu [place] [address] * POCT glucose (10/10/2024 9:48 AM SURVEILLANCE AGENT) Glucose, POC 169 70 - 199 mg/dL Blood 10/10/2024 9:48 AM SURVEILLANCE AGENT 10/10/2024 9:48 AM SURVEILLANCE AGENT Result [facility] Guillermo Mayes MD LAB POCT ORDERABLES - DEVICE Final Result Performing Organization Address [facility] Phone Number NICOLE RAYGOZA [address] [address] [place] [address] * (ABNORMAL) POCT glucose (10/10/2024 8:16 AM SURVEILLANCE AGENT) Glucose, POC 200(H) 70 - 199 mg/dL Blood 10/10/2024 8:16 AM SURVEILLANCE AGENT 10/10/2024 8:16 AM SURVEILLANCE AGENT Result [facility] Guillermo Mayes MD LAB POCT ORDERABLES - DEVICE Final Result Performing Organization Address [facility] [place] [address] [address] [facility] [place] [address] * ECG 12 lead (10/10/2024 7:57 AM SURVEILLANCE AGENT) 10/10/2024 7:57 AM SURVEILLANCE AGENT Narrative [facility] - 10/10/2024 11:11 AM SURVEILLANCE AGENT Vent Rate: 97 bpm RR Interval: 613 msec HI Interval: 122 msec QRS Duration: 142 msec QT Interval: 390 msec QTC Interval: 445 msec P-R-T Hulett: 30 - -17 - 61 degrees IMPRESSION: SINUS RHYTHM RIGHT BUNDLE BRANCH BLOCK [120+ ms QRS DURATION, UPRIGHT V1, 40+ ms S IN I/aVL/V4/V5/V6] ABNORMAL ECG Electronically Signed By: Kacy Knox MD Fatou Schwartz MD ECG ORDERABLES Final Result Performing Organization Address [facility] de Phone Number [facility] [employer] [facility] * (ABNORMAL) Blood gas, arterial (10/10/2024 6:52 AM SURVEILLANCE AGENT) pH, Art 7.44 7.35 - 7.45 PCO2, [...] % CERNER CH Blood 10/10/2024 6:52 AM SURVEILLANCE AGENT 10/10/2024 6:55 AM SURVEILLANCE AGENT us Guillermo Mayes MD LAB BLOOD ORDERABLES Final R esult NICOLE [address] [address] Department of Laboratories [place] [phone] * Critical Care (10/10/2024 6:41 AM SURVEILLANCE AGENT) Narrative Case Guerrero MD - 10/10/2024 6:41 AM SURVEILLANCE AGENT Case Guerrero MD 10/10/2024 4:43 PM Critical [...] plan with the ICU team and other medical/virtualization consultant staff, making frequent assessments and decisions [...] of the following conditions: us Yvette Russell ABRASIVE GRINDER IN CLINIC/BEDSIDE ORDERA BLES Final Result * POCT glucose (10/10/2024 6:10 AM SURVEILLANCE AGENT) Glucose, POC 167 70 - 199 mg/dL Blood 10/10/2024 6:10 AM SURVEILLANCE AGENT 10/10/2024 6:10 AM SURVEILLANCE AGENT Guillermo Mayes MD LAB POCT ORDERABLES - DEVICE Final Result Performing Organization Address City/State/ZIP Co or Phone Number NICOLE RAYGOZA [address] [facility] Department [place] [address] * XR Chest 1 View - Portable - in AM (10/10/2024 5:55 AM SURVEILLANCE AGENT) Anatomical Region Laterality Modality Body, Chest N/A Computed Radiogr aphy 10/10/2024 9:08 AM SURVEILLANCE AGENT Impressions 10/10/2024 9:08 AM SURVEILLANCE AGENT No failure. Electronically signed by: Elena Bower M.D. Narrative 10/10/2024 9:08 AM SURVEILLANCE AGENT EXAMINATION: XR CHEST 1 VIEW HISTORY: The patient is an 79-year-old male who has had cardiac surgery. Comparison made with the previous study dated 10/09/2024. TECHNIQUE: AP portable view of the chest. FINDINGS: Unchanged satisfactory position of the endotracheal tube, bilateral thoracostomy tubes nasogastric tube and Birmingham-Fausto catheter. Borderline cardiomegaly with aortic atherosclerosis. No [...] tube, bilateral thoracostomy tubes nasogastric tube and Birmingham-Fausto catheter. Borderline cardiomegaly with aortic atherosclerosis. No failure. No active infiltrate. IMPRESSION: No failure. Electronically signed by: Elena Bower M.D. Guillermo Mayes MD IMG XR PROCEDURES Final Resu lt * POCT glucose (10/10/2024 5:15 AM SURVEILLANCE AGENT) Glucose, POC 194 70 - 199 mg/dL Blood 10/10/2024 5:15 AM SURVEILLANCE AGENT 10/10/2024 5:15 AM SURVEILLANCE AGENT Guillermo Mayes MD LAB POCT ORDERABLES - DEVICE Final Result Performing Organization Address [facility] Co de Phone Number NICOLE RYAGOZA [address] [address] Department [employer] [address] [place], [place] [id number] * Oxyhemoglobin, pulmonary artery (10/10/2024 2:34 AM SURVEILLANCE AGENT) Oxyhemoglobin, PA 58.0 % Comment: Interpretive Data No reference range established. Current interpretive data was last revised 2019. Blood 10/10/2024 2:34 AM SURVEILLANCE AGENT 10/10/2024 2:43 AM SURVEILLANCE AGENT us Guillermo Mayes MD LAB BLOOD ORDERABLES Final R esult Performing Organization Address [facility] Co de Phone Number NICOLE RAYGOZA [address] [place] [address] * eGFR (10/10/2024 2:27 AM SURVEILLANCE AGENT) eGFR 69 >=60 mL/min/1. 73 m2 Comment: [...] last reviewed 2021. Blood 10/10/2024 2:27 AM SURVEILLANCE AGENT 10/10/2024 2:27 AM SURVEILLANCE AGENT us Fatou Schwartz MD LAB BLOOD ORDERABLES Final Res ult [facility] [address] [address] Department [place] [address] * (ABNORMAL) Differential, auto (10/10/2024 2:27 AM SURVEILLANCE AGENT) Neutrophil abs 5.8 1.5 - 6.5 K/cumm Imm gran abs 0.0 0.0 - 0.1 K/cumm [facility] Lymphocyte abs 0.3(L) 0.8 - 3.3 K/cumm [facility] Monocyte abs 0.4 0.2 - 0.8 K/cumm [facility] Eosinophil abs 0.0 0.0 - 0.5 K/cumm [facility] Basophil abs 0.0 0.0 - 0.1 K/cumm [facility] Neutrophil pct 88.1 % [facility] Comment: Interpretive Data Percent cell count reference ranges are not reported, since discordance with absolute values may lead to misinterpretation of CBC data. Current Interpretive Data was last revised on 2017. Imm gran pct 0.5 % [facility] Comment: Interpretive Data Percent cell count reference ranges are not reported, since discordance with absolute values may lead to misinterpretation of CBC data. Current Interpretive Data was last revised on 2017. Lymphocyte pct 4.2 % [facility] Comment: Interpretive Data Percent cell count reference ranges are not reported, since discordance with absolute values may lead to misinterpretation of CBC data. Current Interpretive Data was last revised on 2017. Monocyte pct 6.5 % [facility] Comment: Interpretive Data Percent cell count reference ranges are not reported, since discordance with absolute values may lead to misinterpretation of CBC data. Current Interpretive Data was last revised on 2017. Eosinophil pct 0.2 % [facility] Comment: Interpretive Data Percent cell count reference ranges are not reported, since discordance with absolute values may lead to misinterpretation of CBC data. Current Interpretive Data was last revised on 2017. Basophil pct 0.5 % [facility] Comment: Interpretive Data Percent cell count reference ranges are not reported, since discordance with absolute values may lead to misinterpretation of CBC data. Current Interpretive Data was last revised on 2017. Blood 10/10/2024 2:27 AM SURVEILLANCE AGENT 10/10/2024 2:27 AM SURVEILLANCE AGENT Fatou Schwartz MD LAB BLOOD ORDERABLES Final Res ult [facility] [address] [address] Department of Laboratories [place], [place] [id number] * Thyroid Function [place] (10/10/2024 2:27 AM SURVEILLANCE AGENT) Pathologist [facility] TSH 3.02 0.30 - 4.20 mcIUnit/mL Blood 10/10/2024 2:27 AM SURVEILLANCE AGENT 10/10/2024 2:27 AM SURVEILLANCE AGENT Yvette Russell NP LAB BLOOD ORDERABLES Fin al Result Performing Organization Address [facility] Co de Phone Number [facility] [address] [address] Department [place] [address] * (ABNORMAL) CBC with auto differential (10/10/2024 2:27 AM SURVEILLANCE AGENT) Pathologist [facility] WBC 6.6 3.8 - 9.9 K/cumm Hgb 9.2(L) 13.0 - 17.5 g/dL [facility] Hct 26.4(L) 38.9 - 50.3 % [facility] Plt 133(L) 150 - 400 K/cumm [facility] MPV 10.5 9.1 - 12.3 fL [facility] RBC 2.99(L) 4.30 - 5.80 M/cumm [facility] MCV 88.3 81.3 - 96.4 fL [facility] MCH 30.8 27.1 - 33.3 pg [facility] MCHC 34.8 32.3 - 35.7 g/dL [facility] RDW CV 13.7 11.1 - 14.9 % [facility] RDW SD 43.9 35.7 - 48.1 fL [facility] NRBC abs 0.00 0.00 - 0.01 K/cumm [facility] Blood 10/10/2024 2:27 AM SURVEILLANCE AGENT 10/10/2024 2:27 AM SURVEILLANCE AGENT Fatou Schwartz MD LAB BLOOD ORDERABLES Final Res ult Performing Organization Address [facility] Co de Phone Number [facility] [address] [address] [facility] [place] [address] * (ABNORMAL) Vitamin D 25 hydroxy (10/10/2024 2:27 AM SURVEILLANCE AGENT) Pathologist [facility] Vitamin D 25-OH 13(L) 30 - 80 ng/mL Blood 10/10/2024 2:27 AM SURVEILLANCE AGENT 10/10/2024 2:38 AM SURVEILLANCE AGENT Yvette Russell ABRASIVE GRINDER LAB BLOOD ORDERABLES Fin al Result Performing Organization Address [facility] de Phone Number [facility] [address] [address] [place] [address] * Phosphorus (10/10/2024 2:27 AM SURVEILLANCE AGENT) Pathologist [facility] Phosphorus, pl 3.9 2.3 - 4.5 mg/dL Blood 10/10/2024 2:27 AM SURVEILLANCE AGENT 10/10/2024 2:27 AM SURVEILLANCE AGENT Yvette Russell ABRASIVE GRINDER LAB BLOOD ORDERABLES Fin al Result Performing Organization Address [facility] Co de Phone Number [facility] [address] [address] [facility] [place] [address] * Magnesium (10/10/2024 2:27 AM SURVEILLANCE AGENT) Pathologist [facility] Magnesium 2.1 1.4 - 2.5 mg/dL Blood 10/10/2024 2:27 AM SURVEILLANCE AGENT 10/10/2024 2:27 AM SURVEILLANCE AGENT Fatou Schwartz MD LAB BLOOD ORDERABLES Final Res ult Performing Organization Address [facility] Co de Phone Number [facility] [address] [address] [place] [address] * (ABNORMAL) Hepatic function panel (10/10/2024 2:27 AM SURVEILLANCE AGENT) Bilirubin, total 0.5 0.1 - 1.2 mg/dL Bilirubin, direct 0.2 0.1 - 0.3 mg/dL [facility] Protein, pl 4.9(L) 6.5 - 8.5 g/dL [facility] Albumin 3.5 3.5 - 5.0 g/dL [facility] Alk phos 41 40 - 130 Units/L [facility] ALT 25 7 - 55 Units/L [facility] AST 42 10 - 50 Units/L [facility] Blood 10/10/2024 2:27 AM SURVEILLANCE AGENT 10/10/2024 2:27 AM SURVEILLANCE AGENT Yvette Russell NP LAB BLOOD ORDERABLES Fin al Result Performing Organization Address [facility] Co de Phone Number [facility] [address] [address] [place] [address] * (ABNORMAL) Lipid panel (10/10/2024 2:27 AM SURVEILLANCE AGENT) Cholesterol 65 30 - 199 mg/dL Comment: [...] ratio 2 CERNER Blood 10/10/2024 2:27 AM SURVEILLANCE AGENT 10/10/2024 2:27 AM SURVEILLANCE AGENT Yvette Russell NP LAB BLOOD ORDERABLES Fin al Result [facility] [address] Department [place] [address] * (ABNORMAL) Basic metabolic panel (10/10/2024 2:27 AM SURVEILLANCE AGENT) Sodium 141 135 - 145 mmol/L Potassium, pl 4.1 3.3 - 4.9 mmol/L CERNER Chloride 109 97 - 110 mmol/L [facility] CO2 20(L) 22 - 32 mmol/L [facility] Anion gap 12 2 - 15 mmol/L [facility] BUN 15 6 - 25 mg/dL [facility] Creatinine 1.09 0.80 - 1.30 mg/dL [facility] Glucose 180 70 - 199 mg/dL [facility] Comment: Interpretive Data Fasting glucose >/= [...] mg/dL [facility]ERNER CH Blood 10/10/2024 2:27 AM SURVEILLANCE AGENT 10/10/2024 2:27 AM SURVEILLANCE AGENT Fatou Schwartz MD LAB BLOOD ORDERABLES Final Res ult [facility] [address] [address] [place] [address] * Calcium, ionized, whole blood (10/10/2024 2:21 AM SURVEILLANCE AGENT) Ca, ionized, bld 4.72 4.50 - 5.10 mg/dL Blood 10/10/2024 2:21 AM SURVEILLANCE AGENT 10/10/2024 2:26 AM SURVEILLANCE AGENT Yvette Russell NP LAB BLOOD ORDERABLES Fin al Result Performing Organization Address [facility] Co de Phone Number [facility] [address] [address] Department [employer] [place], [place] [phone] * (ABNORMAL) Blood gas, arterial (10/10/2024 2:21 AM SURVEILLANCE AGENT) pH, Art 7.42 7.35 - 7.45 PCO2, [...] % CERNER CH Blood 10/10/2024 2:21 AM SURVEILLANCE AGENT 10/10/2024 2:25 AM SURVEILLANCE AGENT Guillermo Mayes MD LAB BLOOD ORDERABLES Final R esult Performing Organization Address [facility] Co de Phone Number NICOLE RAYGOZA [address] [address] [place] [address] * POCT glucose (10/09/2024 11:11 PM SURVEILLANCE AGENT) Glucose, POC 142 70 - 199 mg/dL Blood 10/09/2024 11:1 1 PM SURVEILLANCE AGENT 10/09/2024 11:11 PM SURVEILLANCE AGENT Guillermo Mayes MD LAB POCT ORDERABLES - DEVICE Final Result Performing Organization Address [facility] de Phone Number NICOLE RAYGOZA [address] [address] [facility] [place] [address] * (ABNORMAL) Blood gas, arterial (10/09/2024 9:50 PM SURVEILLANCE AGENT) pH, Art 7.41 7.35 - 7.45 PCO2, [...] % CERNER CH Blood 10/09/2024 9:50 PM SURVEILLANCE AGENT 10/09/2024 9:52 PM SURVEILLANCE AGENT us Tony Purdy NP LAB BLOOD ORDERABLES Fi nal Result Performing Organization Address [facility] Co de Phone Number NICOLE RAYGOZA [address] [address] [facility] [place] [address] * Critical Care (10/09/2024 8:31 PM SURVEILLANCE AGENT) Narrative Deo Biggs MD - 10/09/2024 8:31 PM SURVEILLANCE AGENT Deo Biggs MD 10/10/2024 5:32 AM Critical [...] plan with the ICU team and other medical/virtualization consultant staff, making frequent assessments and decisions [...] Result * Transfuse platelets (10/09/2024 8:30 PM SURVEILLANCE AGENT) Blood us Guillermo Mayes MD BLOOD TRANSFUSION ORDERABLES Final Result Performing Organization Address [facility] Co de Phone Number NICOLE RAYGOZA [address] [address] [place] [address] * Calcium, ionized, whole blood (10/09/2024 8:23 PM SURVEILLANCE AGENT) Ca, ionized, bld 4.60 4.50 - 5.10 mg/dL Blood 10/09/2024 8:23 PM SURVEILLANCE AGENT 10/09/2024 8:25 PM SURVEILLANCE AGENT us Guillermo Mayes MD LAB BLOOD ORDERABLES Final R esult Performing Organization Address [facility] [place] [address] [address] [place] [address] * eGFR (10/09/2024 8:23 PM SURVEILLANCE AGENT) Pathologist [facility] eGFR 78 >=60 mL/min/1. 73 m2 Comment: [...] last reviewed 2021. Blood 10/09/2024 8:23 PM SURVEILLANCE AGENT 10/09/2024 8:25 PM SURVEILLANCE AGENT us Guillermo Mayes MD LAB BLOOD ORDERABLES Final R esult [facility] [address] [address] Department [place] [address] * (ABNORMAL) Differential, auto (10/09/2024 8:23 PM SURVEILLANCE AGENT) Pathologist [facility] Neutrophil abs 5.6 1.5 - 6.5 K/cumm Imm gran abs 0.0 0.0 - 0.1 K/cumm [facility] Lymphocyte abs 0.5(L) 0.8 - 3.3 K/cumm [facility] Monocyte abs 0.4 0.2 - 0.8 K/cumm [facility] Eosinophil abs 0.0 0.0 - 0.5 K/cumm [facility] Basophil abs 0.0 0.0 - 0.1 K/cumm [facility] Neutrophil pct 85.8 % [facility] Comment: Interpretive Data Percent cell count [...] revised on 2017. Blood 10/09/2024 8:23 PM SURVEILLANCE AGENT 10/09/2024 8:26 PM SURVEILLANCE AGENT us Guillermo Mayes MD LAB BLOOD ORDERABLES Final R esult [facility] [address] [address] Department [place] [address] * (ABNORMAL) CBC with auto differential (10/09/2024 8:23 PM SURVEILLANCE AGENT) WBC 6.5 3.8 - 9.9 K/cumm Hgb 9.3(L) 13.0 - 17.5 g/dL [facility] Hct 26.8(L) 38.9 - 50.3 % [facility] Plt 119(L) 150 - 400 K/cumm [facility] MPV 10.5 9.1 - 12.3 fL [facility] RBC 3.06(L) 4.30 - 5.80 M/cumm [facility] MCV 87.6 81.3 - 96.4 fL [facility] MCH 30.4 27.1 - 33.3 pg [facility] MCHC 34.7 32.3 - 35.7 g/dL [facility] RDW CV 13.3 11.1 - 14.9 % [facility] RDW SD 42.2 35.7 - 48.1 fL [facility] NRBC abs 0.00 0.00 - 0.01 K/cumm [facility] Blood 10/09/2024 8:23 PM SURVEILLANCE AGENT 10/09/2024 8:26 PM SURVEILLANCE AGENT Guillermo Mayes MD LAB BLOOD ORDERABLES Final R esult Performing Organization Address [facility] Co de Phone Number NICOLE [address] [place] [address] * (ABNORMAL) Protime-INR (10/09/2024 8:23 PM SURVEILLANCE AGENT) PT 14.0(H) 9.7 - 13.0 sec INR 1.29(H) 0.90 - 1.20 [facility] Comment: Interpretive data Oral anticoagulant therapeutic ranges: Venous thromboembolism prophylaxis or treatment: 2.0-3.0 CARDIOLOGY Standard range: 2.0-3.0 High-intensity range: 2.5-3.5 Refer to indication-specific guidelines for appropriate target ranges for prosthetic heart valve replacement. Current interpretive data was last revised on 2019. Blood 10/09/2024 8:23 PM SURVEILLANCE AGENT 10/09/2024 8:26 PM SURVEILLANCE AGENT Guillermo Mayes MD LAB BLOOD ORDERABLES Final R esult Performing Organization Address [facility] Co de Phone Number NICOLE [address] [place] [address] * Fibrinogen (10/09/2024 8:23 PM SURVEILLANCE AGENT) Fibrinogen 242 170 - 400 mg/dL Blood 10/09/2024 8:23 PM SURVEILLANCE AGENT 10/09/2024 8:26 PM SURVEILLANCE AGENT Guillermo Mayes MD LAB BLOOD ORDERABLES Final R esult NICOLE RAYGOZA [address] [address] [facility] [place] [address] * Magnesium (10/09/2024 8:23 PM SURVEILLANCE AGENT) Pathologist [facility] Magnesium 2.2 1.4 - 2.5 mg/dL Blood 10/09/2024 8:23 PM SURVEILLANCE AGENT 10/09/2024 8:25 PM SURVEILLANCE AGENT Result [facility] Guillermo Mayes MD LAB BLOOD ORDERABLES Final R esult Performing Organization Address [facility] de Phone Number NICOLE RAYGOZA [address] [address] [place] [address] * (ABNORMAL) Blood gas, arterial (10/09/2024 8:23 PM SURVEILLANCE AGENT) pH, Art 7.48(H) 7.35 - 7.45 PCO2, [...] % CERNER CH Blood 10/09/2024 8:23 PM SURVEILLANCE AGENT 10/09/2024 8:25 PM SURVEILLANCE AGENT Result [facility] Guillermo Mayes MD LAB BLOOD ORDERABLES Final R esult Performing Organization Address [facility] Co de Phone Number NICOLE RAYGOZA [address] [address] [facility] [place] [address] * (ABNORMAL) Basic metabolic panel (10/09/2024 8:23 PM SURVEILLANCE AGENT) Sodium 142 135 - 145 mmol/L Potassium, pl 3.7 3.3 - 4.9 mmol/L C[facility]ER Chloride 108 97 - 110 mmol/L [facility] CO2 20(L) 22 - 32 mmol/L [facility] Anion gap 14 2 - 15 mmol/L [facility] BUN 16 6 - 25 mg/dL [facility] Creatinine 0.98 0.80 - 1.30 mg/dL [facility] Glucose 135 70 - 199 mg/dL [facility] Comment: Interpretive Data Fasting glucose [...] 2022. Calcium 8.6 8.5 - 10.3 mg/dL [facility] Blood 10/09/2024 8:23 PM SURVEILLANCE AGENT 10/09/2024 8:25 PM SURVEILLANCE AGENT Guillermo Mayes MD LAB BLOOD ORDERABLES Final R esult [facility] [address] [address] Department [place] [address] * XR Chest 1 Vw Portable (10/09/2024 8:19 PM SURVEILLANCE AGENT) Anatomical Region Laterality Modality Body, Chest N/A Computed Radiogr aphy 10/09/2024 10:3 7 PM SURVEILLANCE AGENT Impressions 10/09/2024 10:37 PM SURVEILLANCE AGENT No failure. Electronically signed by: Elena Bower M.D. Narrative 10/09/2024 10:37 PM SURVEILLANCE AGENT EXAMINATION: XR CHEST 1 VIEW HISTORY: The patient is a 79-year-old male who has had cardiac surgery. Comparison made with the study done at 4:27 PM. TECHNIQUE: AP portable view of the chest. FINDINGS: Bilateral thoracostomy tubes and mediastinal drain in place. The distal tip of the Birmingham-Fausto catheter is in the proximal right main [...] in place. The distal tip of the Birmingham-Fausto catheter is in the proximal right main pulmonary artery. Endotracheal tube and nasogastric tubes are in satisfactory position. Heart not enlarged. No failure. No active infiltrate. IMPRESSION: No failure. Electronically signed by: Elena Bower M.D. Guillermo Mayes MD IMG XR PROCEDURES Final Resu lt * POCT glucose (10/09/2024 7:06 PM SURVEILLANCE AGENT) [facility] Signature Glucose, POC 128 70 - 199 mg/dL Blood 10/09/2024 7:06 PM SURVEILLANCE AGENT 10/09/2024 7:06 PM SURVEILLANCE AGENT Guillermo Mayes MD LAB POCT ORDERABLES - DEVICE Final Result Performing Organization Address [facility]/ZIP Co de Phone Number NICOLE IDALMIS [address] [address] [place] [address] * Transfuse platelets (10/09/2024 7:00 PM SURVEILLANCE AGENT) Blood Guillermo Mayes MD BLOOD TRANSFUSION ORDERABLES Final Result Performing Organization Address [facility] [place] [address] [address] [place] [address] * Transfuse cryoprecipitate (pooled units) (10/09/2024 7:00 PM SURVEILLANCE AGENT) Blood Guillermo Mayes MD BLOOD TRANSFUSION ORDERABLES Final Result Performing Organization Address [facility] Co de Phone Number NICOLE RAYGOZA [address] [address] [place] [address] * Transfuse cryoprecipitate (pooled units) (10/09/2024 6:34 PM SURVEILLANCE AGENT) Blood Guillermo Mayes MD BLOOD TRANSFUSION ORDERABLES Final Result Performing Organization Address [facility] Co de Phone Number NICOLE IDALMIS [address] [address] [facility] [place] [address] * Critical Care (10/09/2024 5:28 PM SURVEILLANCE AGENT) Case Schultz MD - 10/09/2024 5:28 PM SURVEILLANCE AGENT Case Guerrero MD 10/10/2024 4:43 PM Critical [...] plan with the ICU team and other medical/virtualization consultant staff, making frequent assessments and decisions [...] Result * POCT glucose (10/09/2024 5:23 PM SURVEILLANCE AGENT) Glucose, POC 137 70 - 199 mg/dL Blood 10/09/2024 5:23 PM SURVEILLANCE AGENT 10/09/2024 5:23 PM SURVEILLANCE AGENT us Guillermo Mayes MD LAB POCT ORDERABLES - DEVICE Final Result Performing Organization Address [facility] Co de Phone Number NICOLE RAYGOZA [address] [address] Department [place] [address] * Prepare cryoprecipitate (pooled units): 2 Units (10/09/2024 5:10 PM SURVEILLANCE AGENT) Product code [id number] Unit Number [id number] [facility] Product Blood Type OPOS CERNER CH Dispense Status PRESUMED TRANSFUSED [facility]ERNER CH Product code [id number] CERNER CH Unit Number [id number] [facility]ERNER CH Product Blood Type OPOS CERNER CH Dispense Status PRESUMED TRANSFUSED [facility]ER CH Blood Venous blood specimen / Unknown 10/09/2024 5:10 PM SURVEILLANCE AGENT Narrative CERNER CH - 10/09/2024 10:15 PM SURVEILLANCE AGENT Other indication->post op cardiac bleeding Cryo # of [id number] Reasons:-Other (Specify)} us Guillermo Mayes MD BLOOD BANK PRODUCT ORDERABLE S Final Result Performing Organization Address [facility] Co de Phone Number NICOLE RAYGOZA [address] [address] Department [place] [address] * XR Chest 1 View - Portable (10/09/2024 5:05 PM SURVEILLANCE AGENT) Anatomical Region Laterality Modality Body, Chest N/A Computed Radiogr aphy 10/09/2024 10:3 1 PM SURVEILLANCE AGENT Impressions 10/09/2024 10:31 PM SURVEILLANCE AGENT No failure. Electronically signed by: Elena Bower M.D. Narrative 10/09/2024 10:31 PM SURVEILLANCE AGENT EXAMINATION: XR CHEST 1 VIEW HISTORY: The [...] stomach lumen. The distal tip of a Birmingham-Fausto catheter is in the proximal right main [...] stomach lumen. The distal tip of a Birmingham-Fausto catheter is in the proximal right main pulmonary artery. Cardiomegaly with no failure. No active infiltrate. IMPRESSION: No failure. Electronically signed by: Elena Bower M.D. Fatou Schwartz MD IMG XR PROCEDURES Final Result * (ABNORMAL) Calcium, ionized, whole blood (10/09/2024 4:25 PM SURVEILLANCE AGENT) Pathologist [facility] Ca, ionized, bld 4.32(L) 4.50 - 5.10 mg/dL Blood 10/09/2024 4:25 PM SURVEILLANCE AGENT 10/09/2024 4:45 PM SURVEILLANCE AGENT Guillermo Mayes MD LAB BLOOD ORDERABLES Final R esult NICOLE [address] [address] Department [place] [address] * eGFR (10/09/2024 4:25 PM SURVEILLANCE AGENT) eGFR 76 >=60 mL/min/1. 73 m2 Comment: [...] last reviewed 2021. Blood 10/09/2024 4:25 PM SURVEILLANCE AGENT 10/09/2024 4:57 PM SURVEILLANCE AGENT Fatou Schwartz MD LAB BLOOD ORDERABLES Final Res ult NICOLE [address] [place] [address] * (ABNORMAL) aPTT (10/09/2024 4:25 PM SURVEILLANCE AGENT) aPTT 58(H) 28 - 38 sec Comment: Interpretive Data Heparin therapeutic range: 66.0 - 100.0 seconds. Range based on correlation with therapeutic heparin activity range of 0.3 - 0.7 Units/mL. Current interpretive data was last revised on 2023. Blood 10/09/2024 4:25 PM SURVEILLANCE AGENT 10/09/2024 4:46 PM SURVEILLANCE AGENT Fatou Schwartz MD LAB [place] [address] [address] [place] [address] * (ABNORMAL) Protime-INR (10/09/2024 4:25 PM SURVEILLANCE AGENT) Pathologist [facility] PT 13.8(H) 9.7 - 13.0 sec INR 1.27(H) 0.90 - 1.20 [facility] Comment: Interpretive data Oral anticoagulant therapeutic ranges: Venous thromboembolism prophylaxis or treatment: 2.0-3.0 CARDIOLOGY Standard range: 2.0-3.0 High-intensity range: 2.5-3.5 Refer to indication-specific guidelines for appropriate target ranges for prosthetic heart valve replacement. Current interpretive data was last revised on 2019. Blood 10/09/2024 4:25 PM SURVEILLANCE AGENT 10/09/2024 4:46 PM SURVEILLANCE AGENT Fatou Schwartz MD LAB BLOOD ORDERABLES Final Res ult Performing Organization Address [facility] Co de Phone Number [facility] [address] [address] [facility] [place] [address] * Fibrinogen (10/09/2024 4:25 PM SURVEILLANCE AGENT) [facility] Fibrinogen 178 170 - 400 mg/dL Blood 10/09/2024 4:25 PM SURVEILLANCE AGENT 10/09/2024 4:56 PM SURVEILLANCE AGENT Guillermo Mayes MD LAB BLOOD ORDERABLES Final R esult Performing Organization Address [facility] de Phone Number [facility] [address] [address] [facility] [place] [address] * (ABNORMAL) CBC without differential (10/09/2024 4:25 PM SURVEILLANCE AGENT) [facility] WBC 7.8 3.8 - 9.9 K/cumm Hgb 10.6(L) 13.0 - 17.5 g/dL [facility] Comment:Hemoglobin delta due to surgical procedure. Hct 30.7(L) 38.9 - 50.3 % [facility] Plt 106(L) 150 - 400 K/cumm [facility] MPV 10.6 9.1 - 12.3 fL [facility] RBC 3.51(L) 4.30 - 5.80 M/cumm [facility] MCV 87.5 81.3 - 96.4 fL [facility] MCH 30.2 27.1 - 33.3 pg [facility]ER MCHC 34.5 32.3 - 35.7 g/dL [facility] RDW CV 13.2 11.1 - 14.9 % [facility] RDW SD 41.8 35.7 - 48.1 fL [facility] NRBC abs 0.00 0.00 - 0.01 K/cumm [facility] Blood 10/09/2024 4:25 PM SURVEILLANCE AGENT 10/09/2024 4:46 PM SURVEILLANCE AGENT Fatou Schwartz MD LAB BLOOD ORDERABLES Final Res ult Performing Organization Address [facility]/ZIP Co de Phone Number [facility] [address] [address] [place] [address] * Phosphorus (10/09/2024 4:25 PM SURVEILLANCE AGENT) Phosphorus, pl 2.9 2.3 - 4.5 mg/dL Blood 10/09/2024 4:25 PM SURVEILLANCE AGENT 10/09/2024 4:53 PM SURVEILLANCE AGENT Yvette Russell [employer]ER LAB BLOOD ORDERABLES Fin al Result Performing Organization Address [facility] Co de Phone Number [facility] [address] [address] [place] [address] * Magnesium (10/09/2024 4:25 PM SURVEILLANCE AGENT) Magnesium 2.4 1.4 - 2.5 mg/dL Blood 10/09/2024 4:25 PM SURVEILLANCE AGENT 10/09/2024 4:45 PM SURVEILLANCE AGENT Guillermo Mayes MD LAB BLOOD ORDERABLES Final R esult Performing Organization Address [facility] Co de Phone Number [facility] [address] [address] Department of [place], [place] [id number] * (ABNORMAL) Blood gas, arterial (10/09/2024 4:25 PM SURVEILLANCE AGENT) pH, Art 7.44 7.35 - 7.45 PCO2, [...] % [facility] Blood 10/09/2024 4:25 PM SURVEILLANCE AGENT 10/09/2024 4:45 PM SURVEILLANCE AGENT Fatou Schwartz MD LAB BLOOD ORDERABLES Final Res ult [facility] [address] [address] Liu Department [place] [address] * (ABNORMAL) Basic metabolic panel (10/09/2024 4:25 PM SURVEILLANCE AGENT) Sodium 140 135 - 145 mmol/L Potassium, [...] mg/dL [facility] Blood 10/09/2024 4:25 PM SURVEILLANCE AGENT 10/09/2024 4:45 PM SURVEILLANCE AGENT Fatou Schwartz MD LAB BLOOD ORDERABLES Final Res ult [place]AYGOZA [address] [address] [facility] [place] [address] * POCT glucose (10/09/2024 4:07 PM SURVEILLANCE AGENT) Glucose, POC 133 70 - 199 mg/dL Blood 10/09/2024 4:07 PM SURVEILLANCE AGENT 10/09/2024 4:07 PM SURVEILLANCE AGENT Fatou Schwartz MD LAB POCT ORDERABLES - DEVICE F inal Result Performing Organization Address [facility] Co de Phone Number LORINACE RAYGOZA [address] [address] [place] [address] * Prepare platelets: 2 Units (10/09/2024 3:37 PM SURVEILLANCE AGENT) Product code [id number] Unit Number [id number] A [facility] Product Blood Type OPOS [facility] Dispense Status PRESUMED TRANSFUSED [facility] Product code [id number] [facility] Unit Number [id number] S [facility] Product Blood Type ABPO [facility] Dispense Status PRESUMED TRANSFUSED [facility] Blood Venous blood specimen / Unknown 10/09/2024 3:37 PM SURVEILLANCE AGENT Narrative [facility] - 10/10/2024 10:15 AM SURVEILLANCE AGENT Other indication->bleeding post cardiovascular surgery Are special requirements needed? (all products are leukoreduced)->No Date required:-20241009 PLT # of Units:-2-Units Reasons:-Other (Specify)} Guillermo Mayes MD BLOOD BANK PRODUCT ORDERABLE S Final Result Performing Organization Address [facility] Co de Phone Number NICOLE RAYGOZA [address] [address] [facility] [place] [address] * POC Activated Clotting Time, High Range (10/09/2024 3:23 PM SURVEILLANCE AGENT) ACT 104 87 - 138 sec Blood 10/09/2024 3:23 PM SURVEILLANCE AGENT 10/09/2024 3:23 PM SURVEILLANCE AGENT us Fatou Schwartz MD LAB BLOOD ORDERABLES Final Res ult [facility] [address] [address] Liu [place] [address] * (ABNORMAL) POC Blood Gas and Chemistries, Arterial - (10/09/2024 3:18 PM SURVEILLANCE AGENT) pH, Art POC 7.38 7.35 - 7.45 [...] g/dL [facility] Blood 10/09/2024 3:18 PM SURVEILLANCE AGENT 10/09/2024 3:18 PM SURVEILLANCE AGENT Fatou Schwartz MD LAB POCT ORDERABLES - DEVICE F inal Result Performing Organization Address [facility] Co de Phone Number NICOLE RAYGOZA [address] [address] [place], [place] [phone] * (ABNORMAL) aPTT (10/09/2024 3:00 PM SURVEILLANCE AGENT) aPTT 42(H) 28 - 38 sec Comment: Interpretive Data Heparin therapeutic range: 66.0 - 100.0 seconds. Range based on correlation with therapeutic heparin activity range of 0.3 - 0.7 Units/mL. Current interpretive data was last revised on 2023. Blood 10/09/2024 3:00 PM SURVEILLANCE AGENT 10/09/2024 3:06 PM SURVEILLANCE AGENT Result [facility] Guillermo Mayes MD LAB BLOOD ORDERABLES Final R esult Performing Organization Address [facility] Co de Phone Number NICOLE RAYGOZA [address] [address] [facility] [place] [address] * (ABNORMAL) Protime-INR (10/09/2024 3:00 PM SURVEILLANCE AGENT) PT 16.7(H) 9.7 - 13.0 sec INR 1.53(H) 0.90 - 1.20 NICOLE Comment: Interpretive data Oral anticoagulant therapeutic ranges: Venous thromboembolism prophylaxis or treatment: 2.0-3.0 CARDIOLOGY Standard range: 2.0-3.0 High-intensity range: 2.5-3.5 Refer to indication-specific guidelines for appropriate target ranges for prosthetic heart valve replacement. Current interpretive data was last revised on 2019. Blood 10/09/2024 3:00 PM SURVEILLANCE AGENT 10/09/2024 3:06 PM SURVEILLANCE AGENT Result [facility] Guillermo Mayes MD LAB BLOOD ORDERABLES Final R esult Performing Organization Address [facility] Co de Phone Number NICOLE RAYGOZA [address] [address] [facility] [address], [place] [phone] * Fibrinogen (10/09/2024 3:00 PM SURVEILLANCE AGENT) Fibrinogen 188 170 - 400 mg/dL Blood 10/09/2024 3:00 PM SURVEILLANCE AGENT 10/09/2024 3:06 PM SURVEILLANCE AGENT Guillermo Mayes MD LAB BLOOD ORDERABLES Final R esult Performing Organization Address [facility] Co de Phone Number NICOLE RAYGOZA [address] [address] [place] [address] * (ABNORMAL) Platelet count (10/09/2024 3:00 PM SURVEILLANCE AGENT) Plt 114(L) 150 - 400 K/cumm Blood 10/09/2024 3:00 PM SURVEILLANCE AGENT 10/09/2024 3:06 PM SURVEILLANCE AGENT Guillermo Mayes MD LAB BLOOD ORDERABLES Final R esult Performing Organization Address [facility] Co de Phone Number NICOLE [address] [address] [place] [address] * Transfuse platelets (10/09/2024 2:38 PM SURVEILLANCE AGENT) Blood Williams Carrillo MD BLOOD TRANSFUSION ORDERABLES Fin al Result Performing Organization Address [facility] de Phone Number NICOLE RAYGOZA [address] [address] [place] [address] * (ABNORMAL) POC Blood Gas and Chemistries, Arterial - (10/09/2024 2:09 PM SURVEILLANCE AGENT) pH, Art POC 7.41 7.35 - 7.45 [...] g/dL [facility] Blood 10/09/2024 2:09 PM SURVEILLANCE AGENT 10/09/2024 2:09 PM SURVEILLANCE AGENT Fatou Schwartz MD LAB POCT ORDERABLES - DEVICE F inal Result Performing Organization Address [facility]/ZIP Co de Phone Number [facility] [address] [address] [place] [address] * Transfuse plasma (10/09/2024 2:07 PM SURVEILLANCE AGENT) Blood Williams Carrillo MD BLOOD TRANSFUSION ORDERABLES Fin al Result Performing Organization Address [facility]/ZIP Co de Phone Number [facility] [address] [address] Liu [place] [address] * Transfuse platelets (10/09/2024 2:03 PM SURVEILLANCE AGENT) Blood Williams Carrillo MD BLOOD TRANSFUSION ORDERABLES Kedar diogo Result - Final Performing Organization Address [facility] Co de Phone Number [facility] [address] Jose [address] Liu [place] [address] * POC Activated Clotting Time, High Range (10/09/2024 2:03 PM SURVEILLANCE AGENT) ACT 129 87 - 138 sec Blood 10/09/2024 2:03 PM SURVEILLANCE AGENT 10/09/2024 2:03 PM SURVEILLANCE AGENT us Fatou Schwartz MD LAB [place] [address] [address] Liu Department [place] [address] * (ABNORMAL) POC Blood Gas and Chemistries, Arterial - (10/09/2024 1:34 PM SURVEILLANCE AGENT) pH, Art POC 7.37 7.35 - 7.45 [...] g/dL [facility] Blood 10/09/2024 1:34 PM SURVEILLANCE AGENT 10/09/2024 1:34 PM SURVEILLANCE AGENT Fatou Schwartz MD LAB POCT ORDERABLES - DEVICE F inal Result Performing Organization Address [facility]/ZIP Co de Phone Number NICOLE RAYGOZA [address] [address] Department [place] [address] * (ABNORMAL) POC Activated Clotting Time, High Range (10/09/2024 1:31 PM SURVEILLANCE AGENT) Pathologist [facility] ACT 729(H) 87 - 138 sec Blood 10/09/2024 1:31 PM SURVEILLANCE AGENT 10/09/2024 1:31 PM SURVEILLANCE AGENT Fatou Schwartz MD LAB BLOOD ORDERABLES Final Res ult Performing Organization Address [facility] Co de Phone Number NICOLE RAYGOZA [address] [address] [place] [address] * (ABNORMAL) POC Blood Gas and Chemistries, Arterial - (10/09/2024 1:08 PM SURVEILLANCE AGENT) pH, Art POC 7.39 7.35 - 7.45 [...] Hct, POC 30.0(L) 38.9 - 50.3 % [facility] Total Hb, POC 9.9(L) 13.0 - 17.5 g/dL [facility] Blood 10/09/2024 1:08 PM SURVEILLANCE AGENT 10/09/2024 1:08 PM SURVEILLANCE AGENT Fatou Schwartz MD LAB POCT ORDERABLES - DEVICE F inal Result Performing Organization Address [facility] Co de Phone Number [place] [address] [address] Liu Department [place], [place] [phone] * (ABNORMAL) POC Activated Clotting Time, High Range (10/09/2024 1:06 PM SURVEILLANCE AGENT) ACT 546(H) 87 - 138 sec Blood 10/09/2024 1:06 PM SURVEILLANCE AGENT 10/09/2024 1:06 PM SURVEILLANCE AGENT Fatou Schwartz MD LAB BLOOD ORDERABLES Final Res ult Performing Organization Address [facility] de Phone Number [facility] [address] [address] Manuel [place] [address] * (ABNORMAL) Platelet count (10/09/2024 1:05 PM SURVEILLANCE AGENT) Plt 128(L) 150 - 400 K/cumm Blood 10/09/2024 1:05 PM SURVEILLANCE AGENT 10/09/2024 1:10 PM SURVEILLANCE AGENT Guillermo Mayes MD LAB BLOOD ORDERABLES Final R esult Performing Organization Address [facility] Co de Phone Number [facility] [address] [address] [facility] [place] [address] * (ABNORMAL) POC Blood Gas and Chemistries, Arterial - (10/09/2024 12:31 PM SURVEILLANCE AGENT) pH, Art POC 7.39 7.35 - 7.45 [...] [facility] Blood 10/09/2024 12:3 1 PM SURVEILLANCE AGENT 10/09/2024 12:31 PM SURVEILLANCE AGENT Fatou Schwartz MD LAB POCT ORDERABLES - DEVICE F inal Result Performing Organization Address [facility]/ZIP Co de Phone Number NICOLE RAYGOZA [address] [address] Manuel Liu [place] [address] * (ABNORMAL) POC Activated Clotting Time, High Range (10/09/2024 12:29 PM SURVEILLANCE AGENT) ACT 567(H) 87 - 138 sec Blood 10/09/2024 12:2 9 PM SURVEILLANCE AGENT 10/09/2024 12:29 PM SURVEILLANCE AGENT Fatou Schwartz MD LAB BLOOD ORDERABLES Final Res ult NICOLE RAYGOZA [address] [address] Liu Department [place] [address] * (ABNORMAL) POC Blood Gas and Chemistries, Arterial - (10/09/2024 11:59 AM SURVEILLANCE AGENT) pH, Art POC 7.36 7.35 - 7.45 [...] [facility] Blood 10/09/2024 11:5 9 AM SURVEILLANCE AGENT 10/09/2024 11:59 AM SURVEILLANCE AGENT us Fatou Schwartz MD LAB POCT ORDERABLES - DEVICE F inal Result NICOLE RAYGOZA [address] [address] Department [place] [address] * (ABNORMAL) POC Activated Clotting Time, High Range (10/09/2024 11:57 AM SURVEILLANCE AGENT) Pathologist [facility] ACT 673(H) 87 - 138 sec Blood 10/09/2024 11:5 7 AM SURVEILLANCE AGENT 10/09/2024 11:57 AM SURVEILLANCE AGENT Fatou Schwartz MD LAB BLOOD ORDERABLES Final Res ult [facility] [address] [address] Manuel Department [place] [address] * (ABNORMAL) POC Blood Gas and Chemistries, Arterial - (10/09/2024 11:29 AM SURVEILLANCE AGENT) pH, Art POC 7.36 7.35 - 7.45 [...] [facility] Blood 10/09/2024 11:2 9 AM SURVEILLANCE AGENT 10/09/2024 11:29 AM SURVEILLANCE AGENT Fatou Schwartz MD LAB POCT ORDERABLES - DEVICE F inal Result NICOLE RAYGOZA [address] [address] Department [place] [address] * (ABNORMAL) POC Activated Clotting Time, High Range (10/09/2024 11:27 AM SURVEILLANCE AGENT) ACT 564(H) 87 - 138 sec Blood 10/09/2024 11:2 7 AM SURVEILLANCE AGENT 10/09/2024 11:27 AM SURVEILLANCE AGENT us Fatou Schwartz MD LAB BLOOD ORDERABLES Final Res ult Performing Organization Address [facility] Co de Phone Number NICOLE RAYGOZA [address] [address] Department [place] [address] * (ABNORMAL) POC Blood Gas and Chemistries, Arterial - (10/09/2024 10:55 AM SURVEILLANCE AGENT) pH, Art POC 7.32(L) 7.35 - 7.45 [...] Hb, POC 10.1(L) 13.0 - 17.5 g/dL [facility] Blood 10/09/2024 10:5 5 AM SURVEILLANCE AGENT 10/09/2024 10:55 AM SURVEILLANCE AGENT Fatou Schwartz MD LAB POCT ORDERABLES - DEVICE F inal Result Performing Organization Address [facility] Co de Phone Number [facility] [address] [facility] Department of Laboratories [place], [place] [phone] * (ABNORMAL) POC Activated Clotting Time, High Range (10/09/2024 10:53 AM SURVEILLANCE AGENT) ACT 539(H) 87 - 138 sec Blood 10/09/2024 10:5 3 AM SURVEILLANCE AGENT 10/09/2024 10:53 AM SURVEILLANCE AGENT Fatou Schwartz MD LAB BLOOD ORDERABLES Final Res ult Performing Organization Address [facility] Co de Phone Number [facility] [address] [facility] [place] [address] * Surgical pathology (10/09/2024 10:29 AM SURVEILLANCE AGENT) Tissue specimen (specimen) (Heart Valve) 10/09/2024 12:38 PM SURVEILLANCE AGENT Narrative PATHOLOGY CH - 10/11/2024 3:54 PM SURVEILLANCE AGENT EPIC results best viewed via link to PDF [facility] Department of Pathology [address] [place] [id number] Note to Patients: This report may [...] Final Report Patient Name: TREVOR SHAW Address: [address] [place] [address] Gender: M : 1945 (Age: 79) Service: Cardiothoracic Location: Hospital #: [id number] Patient Type: [facility] Taken: 10/09/2024 Received: 10/10/2024 Accessioned: 10/10/2024 Reported: [...] degeneration. Clinical History: Coronary artery disease involving [place] coronary artery of [place] heart without angina pectotis, nonrheumatic aortic valve [...] determined by the Surgical Pathology Department at [facility] as part of an ongoing supplier quality manager program and in compliance with federally [...] characteristics determined by the Surgical Pathology Department [facility]. It has not been cleared or approved by the U. S. Food and Drug Administration. Note for decalcified specimens: This assay has not been validated on decalcified tissues. Results should be interpreted with caution given the possibility of false negativity on decalcified specimens us Guillermo Mayes MD LAB PATHOLOGY [place] [address] [place] [address] * (ABNORMAL) POC Blood Gas and Chemistries, Arterial - (10/09/2024 10:00 AM SURVEILLANCE AGENT) pH, Art POC 7.35 7.35 - 7.45 [...] Hb, POC 13.6 13.0 - 17.5 g/dL [facility] Blood 10/09/2024 10:0 0 AM SURVEILLANCE AGENT 10/09/2024 10:00 AM SURVEILLANCE AGENT Fatou Schwartz MD LAB POCT ORDERABLES - DEVICE F inal Result Performing Organization Address [facility] Co de Phone Number NICOLE [address] [address] [place] [address] * (ABNORMAL) POC Activated Clotting Time, High Range (10/09/2024 9:54 AM SURVEILLANCE AGENT) ACT 619(H) 87 - 138 sec Blood 10/09/2024 9:54 AM SURVEILLANCE AGENT 10/09/2024 9:54 AM SURVEILLANCE AGENT Fatou Schwartz MD LAB BLOOD ORDERABLES Final Res ult Performing Organization Address [facility] de Phone Number LORINACE [address] [address] [place] [address] * BW AN SHEATH INTRODUCER PERFORMABLE, PULMONARY ARTERY CATH (10/09/2024 9:32 AM SURVEILLANCE AGENT) Narrative Brannon Jeffers AA - 10/09/2024 9:32 AM SURVEILLANCE AGENT Brannon Jeffers AA 10/09/2024 9:34 AM Central [...] lt * Arterial Line (10/09/2024 9:23 AM SURVEILLANCE AGENT) Narrative Brannon Jeffers AA - 10/09/2024 9:23 AM SURVEILLANCE AGENT Brannon Jeffers AA 10/09/2024 9:32 AM Arterial [...] - Final * GENEVA (10/09/2024 9:18 AM SURVEILLANCE AGENT) Anatomical Region Laterality Modality Other Narrative 10/09/2024 9:18 AM SURVEILLANCE AGENT Williams Carrillo MD 10/09/2024 9:20 AM GENEVA [...] inferior: normal 16- Apical septal: normal 17- [place]: normal Valves: Aortic Valve: Annulus: normal Leaflet [...] MD ANESTHESIA ORDERABLES Final Resu lt * HI AN ELECTIVE ENDOTRACHEAL AIRWAY (10/09/2024 9:07 AM SURVEILLANCE AGENT) Narrative Brannon Jeffers AA - 10/09/2024 9:07 AM SURVEILLANCE AGENT Brannon Jeffers AA 10/09/2024 9:32 AM Airway [...] and Chemistries, Arterial - (10/09/2024 8:49 AM SURVEILLANCE AGENT) pH, Art POC 7.41 7.35 - 7.45 [...] g/dL [facility] Blood 10/09/2024 8:49 AM SURVEILLANCE AGENT 10/09/2024 8:49 AM SURVEILLANCE AGENT Fatou Schwartz MD LAB POCT ORDERABLES - DEVICE F inal Result Performing Organization Address [facility] Co de Phone Number NICOLE [address] [address] [place] [address] * POC Activated Clotting Time, High Range (10/09/2024 8:46 AM SURVEILLANCE AGENT) Pathologist [facility] ACT 101 87 - 138 sec Blood 10/09/2024 8:46 AM SURVEILLANCE AGENT 10/09/2024 8:46 AM SURVEILLANCE AGENT Fatou Schwartz MD LAB BLOOD ORDERABLES Final Res ult Performing Organization Address [facility] de Phone Number [facility] [address] [address] [place] [address] * (ABNORMAL) aPTT (10/09/2024 4:30 AM SURVEILLANCE AGENT) Pathologist [facility] aPTT 54(H) 28 - 38 sec Comment: Interpretive Data Heparin therapeutic range: 66.0 - 100.0 seconds. Range based on correlation with therapeutic heparin activity range of 0.3 - 0.7 Units/mL. Current interpretive data was last revised on 2023. Blood 10/09/2024 4:30 AM SURVEILLANCE AGENT 10/09/2024 5:44 AM SURVEILLANCE AGENT Fatou Schwartz MD LAB BLOOD ORDERABLES Final Res ult Performing Organization Address [facility] Co de Phone Number NICOLE [address] [place] [address] * CBC without differential (10/09/2024 4:30 AM SURVEILLANCE AGENT) WBC 5.0 3.8 - 9.9 K/cumm Hgb 14.4 13.0 - 17.5 g/dL [facility] Hct 42.9 38.9 - 50.3 % [facility] Plt 158 150 - 400 K/cumm [facility] MPV 11.3 9.1 - 12.3 fL [facility] RBC 4.76 4.30 - 5.80 M/cumm [facility] MCV 90.1 81.3 - 96.4 fL [facility] MCH 30.3 27.1 - 33.3 pg [facility] MCHC 33.6 32.3 - 35.7 g/dL [facility] RDW CV 13.2 11.1 - 14.9 % [facility] RDW SD 42.9 35.7 - 48.1 fL [facility] NRBC abs 0.00 0.00 - 0.01 K/cumm [facility] Blood 10/09/2024 4:30 AM SURVEILLANCE AGENT 10/09/2024 5:43 AM SURVEILLANCE AGENT Narrative [facility] - 10/09/2024 6:14 AM SURVEILLANCE AGENT While on heparin infusion Fatou Schwartz MD LAB BLOOD ORDERABLES Final Res ult Performing Organization Address [facility]/ZIP Co de Phone Number LORINACE RAYGOZA [address] [place] [address] * (ABNORMAL) aPTT (10/08/2024 6:57 PM SURVEILLANCE AGENT) aPTT 72(H) 28 - 38 sec Comment: Interpretive Data Heparin therapeutic range: 66.0 - 100.0 seconds. Range based on correlation with therapeutic heparin activity range of 0.3 - 0.7 Units/mL. Current interpretive data was last revised on 2023. Blood 10/08/2024 6:57 PM SURVEILLANCE AGENT 10/08/2024 7:10 PM SURVEILLANCE AGENT Fatou Schwartz MD LAB BLOOD ORDERABLES Final Res ult Performing Organization Address [facility] de Phone Number NICOLE [address] [address] [facility] [place] [address] * (ABNORMAL) aPTT (10/08/2024 12:52 PM SURVEILLANCE AGENT) aPTT 49(H) 28 - 38 sec Comment: Interpretive Data Heparin therapeutic range: 66.0 - 100.0 seconds. Range based on correlation with therapeutic heparin activity range of 0.3 - 0.7 Units/mL. Current interpretive data was last revised on 2023. Blood 10/08/2024 12:5 2 PM SURVEILLANCE AGENT 10/08/2024 1:06 PM SURVEILLANCE AGENT Fatou Schwartz MD LAB BLOOD ORDERABLES Final Res ult Performing Organization Address [facility] de Phone Number NICOLE [address] [address] [facility] [place] [address] * Differential, auto (10/08/2024 11:35 AM SURVEILLANCE AGENT) Neutrophil abs 3.1 1.5 - 6.5 K/cumm Imm gran abs 0.0 0.0 - 0.1 K/cumm [facility] Lymphocyte abs 1.3 0.8 - 3.3 K/cumm [facility] Monocyte abs 0.5 0.2 - 0.8 K/cumm [facility] Eosinophil abs 0.2 0.0 - 0.5 K/cumm [facility] Basophil abs 0.1 0.0 - 0.1 K/cumm [facility] Neutrophil pct 60.5 % [facility] Comment: Interpretive Data Percent cell count [...] revised on 2017. Basophil pct 1.2 % [facility] Comment: Interpretive Data Percent cell count reference ranges are not reported, since discordance with absolute values may lead to misinterpretation of CBC data. Current Interpretive Data was last revised on 2017. Blood 10/08/2024 11:3 5 AM SURVEILLANCE AGENT 10/08/2024 12:43 PM SURVEILLANCE AGENT us Jewel Heart MD LAB BLOOD ORDERABLES Kamla l Result NICOLE RAYGOZA [address] [address] [place] [address] * Check Sample (10/08/2024 11:35 AM SURVEILLANCE AGENT) ABO Rh O Positive [facility] OTHER 10/08/2024 11:3 5 AM SURVEILLANCE AGENT 10/08/2024 12:43 PM SURVEILLANCE AGENT us Fatou Schwartz MD LAB BLOOD ORDERABLES Final Res ult NICOLE RAYGOZA [address] [address] [place] [address] * CBC with auto differential (10/08/2024 11:35 AM SURVEILLANCE AGENT) [facility] WBC 5.1 3.8 - 9.9 K/cumm Hgb 14.8 13.0 - 17.5 g/dL [facility] Hct 45.0 38.9 - 50.3 % [facility] Plt 168 150 - 400 K/cumm [facility] MPV 10.9 9.1 - 12.3 fL [facility] RBC 4.90 4.30 - 5.80 M/cumm [facility] MCV 91.8 81.3 - 96.4 fL [facility] MCH 30.2 27.1 - 33.3 pg [facility] MCHC 32.9 32.3 - 35.7 g/dL [facility] RDW CV 13.2 11.1 - 14.9 % [facility] RDW SD 44.5 35.7 - 48.1 fL [facility] NRBC abs 0.00 0.00 - 0.01 K/cumm [facility] Blood 10/08/2024 11:3 5 AM SURVEILLANCE AGENT 10/08/2024 12:43 PM SURVEILLANCE AGENT Jewel Heart MD LAB BLOOD ORDERABLES Kamla chen Result Performing Organization Address [facility] de Phone Number [facility] [address] [facility] Department [place] [address] * (ABNORMAL) aPTT (10/08/2024 11:35 AM SURVEILLANCE AGENT) [facility] aPTT 57(H) 28 - 38 sec Comment: Interpretive Data Heparin therapeutic range: 66.0 - 100.0 seconds. Range based on correlation with therapeutic heparin activity range of 0.3 - 0.7 Units/mL. Current interpretive data was last revised on 2023. Blood 10/08/2024 11:3 5 AM SURVEILLANCE AGENT 10/08/2024 12:43 PM SURVEILLANCE AGENT Fatou Schwartz MD LAB BLOOD ORDERABLES Final Res ult Performing Organization Address [facility] de Phone Number NICOLE RAYGOZA [address] [address] [place] [address] * Type and screen (10/08/2024 11:35 AM SURVEILLANCE AGENT) Nani, indirect Negative ABO Rh O Positive C[facility]ER [facility] Blood 10/08/2024 11:3 5 AM SURVEILLANCE AGENT 10/08/2024 12:44 PM SURVEILLANCE AGENT Narrative NICOLE - 10/08/2024 1:20 PM SURVEILLANCE AGENT Has the patient had Daratumumab or Isatuximab in the past 6 months?->Unknown Migdalia Salcedo NP LAB BLOOD BANK TEST ORDERA BLES Final Result Performing Organization Address [facility] Phone Number NICOLE RAYGOZA [address] [address] [facility] [place] [address] * Prepare platelets: 2 Units (10/08/2024 10:57 AM SURVEILLANCE AGENT) [facility] Product code [id number] Unit Number [id number] [facility] Product Blood Type OPOS [facility]ER CH Dispense Status PRESUMED TRANSFUSED [facility] Product code [id number] [facility] CH Unit Number [id number] [facility] Product Blood Type APOS CERNER CH Dispense Status PRESUMED TRANSFUSED [facility] Blood Venous blood specimen / Unknown 10/08/2024 10:57 AM SURVEILLANCE AGENT Narrative NICOLE - 10/09/2024 10:15 PM SURVEILLANCE AGENT Specify Procedure:->CABG AVR Are special requirements needed? (all products are leukoreduced)->No Date required:-[id number] PLT # of Units:-2-Units Reasons:-Hold for procedure (specify procedure)} Migdalia Salcedo NP BLOOD BANK PRODUCT ORDERAB LES Final Result Performing Organization Address [facility] de Phone Number NICOLE RAYGOZA [address] [address] [facility] [place] [address] * Prepare plasma: 2 Units Standard plasma (10/08/2024 10:57 AM SURVEILLANCE AGENT) Product code [id number] Unit Number [id number] [facility] Product Blood Type APOS CERNER CH Dispense Status PRESUMED TRANSFUSED [facility] Blood Venous blood specimen / Unknown 10/08/2024 10:57 AM SURVEILLANCE AGENT Narrative [facility]ER CH - 10/09/2024 10:15 PM SURVEILLANCE AGENT Specify Procedure:->CABG AVR Is this plasma order intended for a COVID-19 patient as convalescent plasma?->Standard plasma Special Requirements Needed?->No Date required:-20241009 FFP # of Units:-2-Units Reasons:-Hold for procedure (specify procedure)} Migdalia Salcedo NP BLOOD BANK PRODUCT ORDERAB LES Final Result NICOLE RAYGOZA [address] [address] Department [place] [address] * Prepare RBC: 4 Units (10/08/2024 10:57 AM SURVEILLANCE AGENT) Product code [id number] Unit Number [id number] 7-7 [facility] Product Blood Type OPOS [facility]ER CH Dispense Status RETURNED [facility] Product code [id number] [facility] CH Unit Number [id number] 5-G [facility] Product Blood Type OPOS CERNER CH Dispense Status RETURNED [facility] Product code [id number] [facility] CH Unit Number [id number] 2-* [facility] Product Blood Type OPOS C[facility]ER CH Dispense Status RETURNED [facility] Product code [id number] [facility] CH Unit Number [id number] 9-N [facility] Product Blood Type OPOS CERNER CH Dispense Status RETURNED [facility] Blood 10/08/2024 10:5 7 AM SURVEILLANCE AGENT Narrative [facility] - 10/12/2024 12:10 AM SURVEILLANCE AGENT Specify Procedure:->CABG AVR Are special requirements needed? (All products are leukoreduced and CMV- safe)- >No Date required:-20241009 LRRBC # of [id number] Reasons:-Hold for procedure (specify procedure)} Migdalia Salcedo ABRASIVE GRINDER BLOOD BANK PRODUCT ORDERAB LES Final Result Performing Organization Address [facility]/ZIP Co de Phone Number NICOLE RAYGOZA [address] [address] [facility] [place] [address] * (ABNORMAL) aPTT (10/08/2024 3:57 AM SURVEILLANCE AGENT) aPTT 48(H) 28 - 38 sec Comment: Interpretive Data Heparin therapeutic range: 66.0 - 100.0 seconds. Range based on correlation with therapeutic heparin activity range of 0.3 - 0.7 Units/mL. Current interpretive data was last revised on 2023. Blood 10/08/2024 3:57 AM SURVEILLANCE AGENT 10/08/2024 4:50 AM SURVEILLANCE AGENT us Fatou Schwartz MD LAB BLOOD ORDERABLES Final Res ult Performing Organization Address [facility] Co de Phone Number NICOLE RAYGOZA [address] [address] [facility] [place] [address] * (ABNORMAL) aPTT (10/07/2024 7:05 AM SURVEILLANCE AGENT) aPTT 78(H) 28 - 38 sec Comment: Interpretive Data Heparin therapeutic range: 66.0 - 100.0 seconds. Range based on correlation with therapeutic heparin activity range of 0.3 - 0.7 Units/mL. Current interpretive data was last revised on 2023. Blood 10/07/2024 7:05 AM SURVEILLANCE AGENT 10/07/2024 7:12 AM SURVEILLANCE AGENT us Guillermo Mayes MD LAB BLOOD ORDERABLES Final R esult Performing Organization Address [facility]/ZIP Co de Phone Number NICOLE RAYGOZA [address] [address] [facility] [place] [address] * XR Chest 1 View (10/06/2024 9:13 AM SURVEILLANCE AGENT) Anatomical Region Laterality Modality Body, Chest N/A Computed Radiogr aphy 10/06/2024 9:39 AM SURVEILLANCE AGENT Impressions 10/06/2024 9:39 AM SURVEILLANCE AGENT No active disease. Electronically signed by: Elena Bower M.D. Narrative 10/06/2024 9:39 AM SURVEILLANCE AGENT EXAMINATION: XR CHEST 1 VIEW HISTORY: The [...] Electronically signed by: Elena Bower M.D. Migdalia Salcdeo ABRASIVE GRINDER IMG XR PROCEDURES Final Re sult * (ABNORMAL) aPTT (10/06/2024 4:53 AM SURVEILLANCE AGENT) aPTT 86(H) 28 - 38 sec Comment: Interpretive Data Heparin therapeutic range: 66.0 - 100.0 seconds. Range based on correlation with therapeutic heparin activity range of 0.3 - 0.7 Units/mL. Current interpretive data was last revised on 2023. Blood 10/06/2024 4:53 AM SURVEILLANCE AGENT 10/06/2024 5:25 AM SURVEILLANCE AGENT Fatou Schwartz MD LAB BLOOD ORDERABLES Final Res ult NICOLE [address] [address] Department [place] [address] * CBC without differential (10/06/2024 12:10 AM SURVEILLANCE AGENT) WBC 6.3 3.8 - 9.9 K/cumm Hgb 14.5 13.0 - 17.5 g/dL NICOLE RAYGOZA Hct 42.6 38.9 - 50.3 % [facility] Plt 171 150 - 400 K/cumm [facility] MPV 10.9 9.1 - 12.3 fL [facility] RBC 4.75 4.30 - 5.80 M/cumm [facility] MCV 89.7 81.3 - 96.4 fL [facility] MCH 30.5 27.1 - 33.3 pg [facility] MCHC 34.0 32.3 - 35.7 g/dL [facility] RDW CV 13.0 11.1 - 14.9 % [facility] RDW SD 42.5 35.7 - 48.1 fL [facility] NRBC abs 0.00 0.00 - 0.01 K/cumm [facility] Blood 10/06/2024 12:1 0 AM SURVEILLANCE AGENT 10/06/2024 12:16 AM SURVEILLANCE AGENT Narrative [facility] - 10/06/2024 12:46 AM SURVEILLANCE AGENT While on heparin infusion Fatou Schwartz MD LAB BLOOD ORDERABLES Final Res ult [facility] [address] [address] Department of Laboratories [place] [phone] * Respiratory pathogen panel Nasopharyngeal (10/05/2024 3:21 PM SURVEILLANCE AGENT) Pathologist [facility] Influenza A RNA Not Detected Not Detected Influenza B RNA Not Detected Not Detected [facility] RSV RNA Not Detected Not Detected [facility] COVID-19 RNA Not Detected Not Detected [facility] Coronavirus 229E RNA Not Detected Not Detected [facility] Coronavirus HKU1 RNA Not Detected Not Detected [facility] Coronavirus NL63 RNA Not Detected Not Detected [facility] Coronavirus OC43 RNA Not Detected Not Detected [facility] Adenovirus DNA Not Detected Not Detected [facility] Metapneumovirus RNA Not Detected Not Detected [facility] Rhinovirus/Enterov irus RNA Not Detected Not Detected [facility] Parainfluenza 1 RNA Not Detected Not Detected [facility] Parainfluenza 2 RNA Not Detected Not Detected [facility] Parainfluenza 3 RNA Not Detected Not Detected [facility] Parainfluenza 4 RNA Not Detected Not Detected [facility] B. pertussis DNA Not Detected Not Detected [facility] B. parapertussis DNA Not Detected Not Detected [facility] C. pneumoniae DNA Not Detected Not Detected [facility] M. pneumoniae DNA Not Detected Not Detected [facility] Comment: Interpretive Data [employer] FilmArray Respiratory Panel (RP2.1) assay is a [...] assay has FDA clearance for testing of ABRASIVE GRINDER swabs. The performance characteristics of this assay have been determined by [facility]. Current interpretive data was last revised on 2021. Nasopharyngeal 10/05/2024 3: 21 PM SURVEILLANCE AGENT 10/05/2024 3:46 PM SURVEILLANCE AGENT Narrative NICOLE RAYGOZA - 10/05/2024 5:20 PM SURVEILLANCE AGENT Is the Patient experiencing symptoms consistent with COVID?->Unknown Surveillance testing for transplant patient?->No Carmen Peñaloza ABR[employer]IVE GRINDER LAB MICROBIOLOGY - GENERAL ORDER TEVIN Final Result NICOLE [address] [address] Department [place] [address] CH * TRANSESOPHAGEAL ECHO (GENEVA) W DOPPLER/CF WO CONTRAST (10/05/2024 2:29 PM SURVEILLANCE AGENT) BSA 2.42 m2 CONS SCIMAGE Anatomical Region Laterality Modality Other Narrative 10/05/2024 3:21 PM SURVEILLANCE AGENT Transesophageal Echocardiogram Date of procedure: 10/05/2024 INDICATIONS: [...] cm2. -Flaca Giles DO, FACC Carmen Anabela ABRASIVE GRINDER CV ECHO PROCEDURES Final Result * (ABNORMAL) eGFR (10/05/2024 12:55 PM SURVEILLANCE AGENT) eGFR 59(L) >=60 mL/min/1. 73 m2 Comment: [...] reviewed 2021. Blood 10/05/2024 12:5 5 PM SURVEILLANCE AGENT 10/05/2024 1:14 PM SURVEILLANCE AGENT us Flaca Giles DO LAB BLOOD ORDERABLES Kamla l Result NICOLE RAYGOZA [address] [address] Department [place] [address] * Differential, auto (10/05/2024 12:55 PM SURVEILLANCE AGENT) Neutrophil abs 3.5 1.5 - 6.5 K/cumm Imm gran abs 0.0 0.0 - 0.1 K/cumm NICOLE RAYGOZA Lymphocyte abs 1.3 0.8 - 3.3 K/cumm [facility] Monocyte abs 0.5 0.2 - 0.8 K/cumm [facility] Eosinophil abs 0.2 0.0 - 0.5 K/cumm [facility] Basophil abs 0.1 0.0 - 0.1 K/cumm [facility] Neutrophil pct 62.8 % [facility] Comment: Interpretive Data Percent cell count reference ranges are not reported, since discordance with absolute values may lead to misinterpretation of CBC data. Current Interpretive Data was last revised on 2017. Imm gran pct 0.4 % [facility] Comment: Interpretive Data Percent cell count reference ranges are not reported, since discordance with absolute values may lead to misinterpretation of CBC data. Current Interpretive Data was last revised on 2017. Lymphocyte pct 23.8 % [facility] Comment: Interpretive Data Percent cell count reference ranges are not reported, since discordance with absolute values may lead to misinterpretation of CBC data. Current Interpretive Data was last revised on 2017. Monocyte pct 8.2 % [facility] Comment: Interpretive Data Percent cell count reference ranges are not reported, since discordance with absolute values may lead to misinterpretation of CBC data. Current Interpretive Data was last revised on 2017. Eosinophil pct 3.5 % [facility] Comment: Interpretive Data Percent cell count reference ranges are not reported, since discordance with absolute values may lead to misinterpretation of CBC data. Current Interpretive Data was last revised on 2017. Basophil pct 1.3 % [facility] Comment: Interpretive Data Percent cell count reference ranges are not reported, since discordance with absolute values may lead to misinterpretation of CBC data. Current Interpretive Data was last revised on 2017. Blood 10/05/2024 12:5 5 PM SURVEILLANCE AGENT 10/05/2024 1:14 PM SURVEILLANCE AGENT us Flaca Giles DO LAB BLOOD ORDERABLES Kamla l Result NICOLE [address] [address] Department [place] [address] * CBC with auto differential (10/05/2024 12:55 PM SURVEILLANCE AGENT) Pathologist [facility] WBC 5.5 3.8 - 9.9 K/cumm Hgb 14.9 13.0 - 17.5 g/dL [facility] Hct 45.0 38.9 - 50.3 % CERNER Plt 170 150 - 400 K/cumm [facility] MPV 10.3 9.1 - 12.3 fL [facility] RBC 4.97 4.30 - 5.80 M/cumm [facility] MCV 90.5 81.3 - 96.4 fL [facility] MCH 30.0 27.1 - 33.3 pg [facility]ER MCHC 33.1 32.3 - 35.7 g/dL [facility] RDW CV 13.1 11.1 - 14.9 % [facility] CH RDW SD 43.0 35.7 - 48.1 fL [facility] NRBC abs 0.00 0.00 - 0.01 K/cumm [facility] Blood 10/05/2024 12:5 5 PM SURVEILLANCE AGENT 10/05/2024 1:14 PM SURVEILLANCE AGENT us Flaca Giles DO LAB BLOOD ORDERABLES Kamla l Result [facility] [address] [address] Department of Laboratories [place], [place] [id number] * Basic metabolic panel (10/05/2024 12:55 PM SURVEILLANCE AGENT) Pathologist [facility] Sodium 139 135 - 145 mmol/L Potassium, pl 4.2 3.3 - 4.9 mmol/L [facility] Chloride 103 97 - 110 mmol/L [facility] CO2 25 22 - 32 mmol/L [facility] Anion gap 11 2 - 15 mmol/L [facility] BUN 18 6 - 25 mg/dL [facility] Creatinine 1.24 0.80 - 1.30 mg/dL [facility] Glucose 94 70 - 199 mg/dL [facility] Comment: Interpretive Data Fasting glucose >/= [...] NICOLE RAYGOZA Blood 10/05/2024 12:5 5 PM SURVEILLANCE AGENT 10/05/2024 1:14 PM SURVEILLANCE AGENT Flaca Giles DO LAB BLOOD ORDERABLES Kamla l Result Performing Organization Address [facility] Co de Phone Number NICOLE [address] [address] [place], [place] [id number] * (ABNORMAL) aPTT (10/05/2024 3:14 AM SURVEILLANCE AGENT) aPTT 80(H) 28 - 38 sec Comment: Interpretive Data Heparin therapeutic range: 66.0 - 100.0 seconds. Range based on correlation with therapeutic heparin activity range of 0.3 - 0.7 Units/mL. Current interpretive data was last revised on 2023. Blood 10/05/2024 3:14 AM SURVEILLANCE AGENT 10/05/2024 3:56 AM SURVEILLANCE AGENT Fatou Schwartz MD LAB BLOOD ORDERABLES Final Res ult Performing Organization Address [facility] Co de Phone Number NICOLE [address] [address] [place] [address] * US Carotids Duplex Bilateral (10/04/2024 3:17 PM SURVEILLANCE AGENT) Anatomical Region Laterality Modality Vascular Bilateral Ultrasound 10/04/2024 3:25 PM SURVEILLANCE AGENT Impressions 10/04/2024 3:25 PM SURVEILLANCE AGENT 1. Bilateral internal carotid artery stenosis estimated at less than 50%. 2. There is antegrade flow in both vertebral arteries. Electronically signed by: Jj Grubbs II, D.O. Narrative 10/04/2024 3:25 PM SURVEILLANCE AGENT EXAMINATION: BILATERAL CAROTID DUPLEX EXAM DATE: 10/04/2024 [...] Grubbs II, D.O. us Migdalia Neshabrodie Salcedo ABRASIVE GRINDER IMG US PROCEDURES Final Re sult * CT Chest WO Contrast (10/04/2024 11:54 AM SURVEILLANCE AGENT) Anatomical Region Laterality Modality Body N/A Computed Tomogra phy 10/04/2024 12:4 6 PM SURVEILLANCE AGENT Impressions 10/04/2024 12:46 PM SURVEILLANCE AGENT 1. Aortic and coronary artery atherosclerosis. 2. Minimal mosaic attenuation in the lingula and bilateral lower lobe suggestive of atelectasis versus interstitial pulmonary edema. Electronically signed by: Jj Grubbs II, D.O. Narrative 10/04/2024 12:46 PM SURVEILLANCE AGENT EXAMINATION: Computed tomography of the chest without [...] Jj Grubbs II, D.O. us Migdalia Salcedo ABR[employer]ER IMG CT PROCEDURES Final Re sult * (ABNORMAL) aPTT (10/04/2024 10:20 AM SURVEILLANCE AGENT) aPTT 68(H) 28 - 38 sec Comment: Interpretive Data Heparin therapeutic range: 66.0 - 100.0 seconds. Range based on correlation with therapeutic heparin activity range of 0.3 - 0.7 Units/mL. Current interpretive data was last revised on 2023. Blood 10/04/2024 10:2 0 AM SURVEILLANCE AGENT 10/04/2024 10:36 AM SURVEILLANCE AGENT us Fatou Schwartz MD LAB BLOOD ORDERABLES Final Res ult [facility] [address] [facility] Department [place] [address] * X-ray chest 1 view (Portable) (10/04/2024 6:29 AM SURVEILLANCE AGENT) Anatomical Region Laterality Modality Body, Chest N/A Computed Radiogr aphy 10/04/2024 8:40 AM SURVEILLANCE AGENT Impressions 10/04/2024 8:40 AM SURVEILLANCE AGENT No active disease. Electronically signed by: Elena Bower M.D. Narrative 10/04/2024 8:40 AM SURVEILLANCE AGENT EXAMINATION: XR CHEST 1 VIEW HISTORY: The [...] disease. Electronically signed by: Elena Bower M.D. Faotu Schwartz MD IMG XR PROCEDURES Final Result * (ABNORMAL) aPTT (10/04/2024 4:25 AM SURVEILLANCE AGENT) aPTT 72(H) 28 - 38 sec Comment: Interpretive Data Heparin therapeutic range: 66.0 - 100.0 seconds. Range based on correlation with therapeutic heparin activity range of 0.3 - 0.7 Units/mL. Current interpretive data was last revised on 2023. Blood 10/04/2024 4:25 AM SURVEILLANCE AGENT 10/04/2024 4:30 AM SURVEILLANCE AGENT Fatou Schwartz MD LAB BLOOD ORDERABLES Final Res ult [facility] [address] [address] Department [place] [address] * eGFR (10/03/2024 9:56 PM SURVEILLANCE AGENT) eGFR 64 >=60 mL/min/1. 73 m2 Comment: [...] last reviewed 2021. Blood 10/03/2024 9:56 PM SURVEILLANCE AGENT 10/03/2024 10:01 PM SURVEILLANCE AGENT Fatou Schwartz MD LAB BLOOD ORDERABLES Final Res ult Performing Organization Address [facility] Co de Phone Number NICOLE RAYGOZA [address] [address] [facility] [place] [address] * aPTT (10/03/2024 9:56 PM SURVEILLANCE AGENT) aPTT 34 28 - 38 sec Comment: Interpretive Data Heparin therapeutic range: 66.0 - 100.0 seconds. Range based on correlation with therapeutic heparin activity range of 0.3 - 0.7 Units/mL. Current interpretive data was last revised on 2023. Blood 10/03/2024 9:56 PM SURVEILLANCE AGENT 10/03/2024 10:01 PM SURVEILLANCE AGENT Fatou Schwartz MD LAB BLOOD ORDERABLES Final Res ult Performing Organization Address [facility] de Phone Number LORINACE RAYGOZA [address] [address] [facility] [place] [address] * Protime-INR (10/03/2024 9:56 PM SURVEILLANCE AGENT) PT 11.9 9.7 - 13.0 sec INR 1.10 0.90 - 1.20 NICOLE RAYGOZA Comment: Interpretive data Oral anticoagulant therapeutic ranges: Venous thromboembolism prophylaxis or treatment: 2.0-3.0 CARDIOLOGY Standard range: 2.0-3.0 High-intensity range: 2.5-3.5 Refer to indication-specific guidelines for appropriate target ranges for prosthetic heart valve replacement. Current interpretive data was last revised on 2019. Blood 10/03/2024 9:56 PM SURVEILLANCE AGENT 10/03/2024 10:01 PM SURVEILLANCE AGENT Fatou Schwartz MD LAB BLOOD ORDERABLES Final Res ult Performing Organization Address [facility] Co de Phone Number NICOLE RAYGOZA [address] [address] [facility] [place] [address] * CBC without differential (10/03/2024 9:56 PM SURVEILLANCE AGENT) Pathologist [facility] WBC 6.2 3.8 - 9.9 K/cumm Hgb 14.4 13.0 - 17.5 g/dL [facility] Hct 42.4 38.9 - 50.3 % [facility] Plt 182 150 - 400 K/cumm [facility] MPV 10.1 9.1 - 12.3 fL [facility] RBC 4.75 4.30 - 5.80 M/cumm [facility] MCV 89.3 81.3 - 96.4 fL [facility] MCH 30.3 27.1 - 33.3 pg [facility] MCHC 34.0 32.3 - 35.7 g/dL [facility] RDW CV 13.0 11.1 - 14.9 % [facility] RDW SD 42.5 35.7 - 48.1 fL [facility] NRBC abs 0.00 0.00 - 0.01 K/cumm [facility] Blood 10/03/2024 9:56 PM SURVEILLANCE AGENT 10/03/2024 10:01 PM SURVEILLANCE AGENT Fatou Schwartz MD LAB BLOOD ORDERABLES Final Res ult Performing Organization Address [facility] Co de Phone Number LORINACE [address] [address] [place], [place] [phone] * Magnesium (10/03/2024 9:56 PM SURVEILLANCE AGENT) [facility] Magnesium 1.9 1.4 - 2.5 mg/dL Blood 10/03/2024 9:56 PM SURVEILLANCE AGENT 10/03/2024 10:01 PM SURVEILLANCE AGENT Fatou Schwartz MD LAB BLOOD ORDERABLES Final Res ult Performing Organization Address [facility]/ZIP Co de Phone Number [facility] [address] [address] [facility] [place] [address] * (ABNORMAL) Hemoglobin A1c (10/03/2024 9:56 PM SURVEILLANCE AGENT) [facility] Hgb A1C 5.8(H) 4.0 - 5.6 % Estimated Average Glucose 120 mg/dL [facility] Comment: The ADA recommends reporting an estimated Average Glucose (eAG) with all Hemoglobin A1c results using the equation derived from a study of 507 normal and diabetic adults. Minority populations were underrepresented and children were not included. (Diabetes Care 31:9937-2462, 2008). The eAG is not equivalent to a fasting glucose. Blood 10/03/2024 9:56 PM SURVEILLANCE AGENT 10/04/2024 10:36 AM SURVEILLANCE AGENT Migdalia Salcedo [employer] LAB BLOOD ORDERABLES Final Result [facility] [address] [address] Department [place] [address] * Comprehensive metabolic panel (10/03/2024 9:56 PM SURVEILLANCE AGENT) Sodium 138 135 - 145 mmol/L Potassium, pl 4.0 3.3 - 4.9 mmol/L [facility] Chloride 102 97 - 110 mmol/L [facility] CO2 26 22 - 32 mmol/L [facility] Anion gap 10 2 - 15 mmol/L [facility] BUN 15 6 - 25 mg/dL [facility] Creatinine 1.15 0.80 - 1.30 mg/dL [facility] Glucose 95 70 - 199 mg/dL [facility] Comment: Interpretive Data Fasting glucose >/= [...] Units/L [facility] Blood 10/03/2024 9:56 PM SURVEILLANCE AGENT 10/03/2024 10:01 PM SURVEILLANCE AGENT Fatou Schwartz MD LAB BLOOD ORDERABLES Final Res ult Performing Organization Address [facility] [place] [address] [address] Liu [place] [address] * (ABNORMAL) Urinalysis reflex to microscopic and culture Urine, clean voided (10/03/2024 9:22 PM SURVEILLANCE AGENT) Color, ur Yellow Yellow Clarity, ur Clear [...] tendency for uric acid stone formation. Source: [facility] Current Interpretive Data was last revised on [...] CH Urine, clean voided 10/03/2024 9:22 PM SURVEILLANCE AGENT 10/03/2024 9:30 PM SURVEILLANCE AGENT Fatou Schwartz MD LAB MICROBIOLOGY - GENERAL ORD ERABLES Final Result Performing Organization Address City/[facility]/ZIP Co de Phone Number CERNER [address] Jose Manuel Liu [place] [address] * (ABNORMAL) Urinalysis, microscopic only (10/03/2024 9:22 PM SURVEILLANCE AGENT) WBC, ur 11-20(A) 0 - 5 /HPF RBC, ur 0-2 0 - 2 /HPF [facility] Bacteria, ur Trace(A) [facility] Culture Reflex Comment Reflex to urine culture will be performed. [facility] Urine, clean voided 10/03/2024 9:22 PM SURVEILLANCE AGENT 10/03/2024 9:30 PM SURVEILLANCE AGENT us Fatou Schwartz MD LAB URINE ORDERABLES Final Res ult [facility] [address] [address] Liu Department [place] [address] * (ABNORMAL) Urine culture Urine, clean voided (10/03/2024 9:22 PM SURVEILLANCE AGENT) Report Final Report: Greater than or equal to 100,000 colonies/mL of Enterobacter aerogenes (.) Comment:Testing performed by : [facility], [address] [place]., [address] Organism [facility] Urine, clean voided 10/03/2024 9:22 PM SURVEILLANCE AGENT 10/04/2024 12:20 AM SURVEILLANCE AGENT Narrative [facility] - 10/06/2024 6:22 AM SURVEILLANCE AGENT Urine culture reflexed based upon urinalysis results. Testing performed by [facility] ([phone]) Organism Antibiotic Method Susceptibility Klebsiella (Enterobacter) aerogenes [...] GENERAL ORD ERABLES Final Result NICOLE RAYGOZA [address] [address] Department [place] [address] * Cardiology Document Scan (10/03/2024 4:14 PM SURVEILLANCE AGENT) Anatomical Region Laterality Modality Other us Sherley Herring NP CV CARDIAC SERVICES PROCEDUR ES Final Result * Cardiology Document Scan (10/02/2024 4:12 PM SURVEILLANCE AGENT) Anatomical Region Laterality Modality Other Sherley Herring NP CV CARDIAC SERVICES PROCEDUR ES Final Result from Last 3 Months Insurance MEDICARE ADVANTAGE [facility] MEDICARE ADVANTAGE Advance Directives For more information, please contact: [phone] * Full Code (Latest Code Status on File) Date Activated Date Inactivated Comments 10/03/2024 8:28 PM 10/21/2024 4:34 PM Care Teams Efficiency Expert Relationship Specialty Start Date End Date Jj Collins NP [address] [place] [id number] PCP - General Nurse Practitioner 10/02/24
== END 2024-11-29 11:15 | disposition home or self-care (01) ==
PROVIDERS: Emergency Provider Emergency Medicine; PCP Nurse Practitioner
DX: F41.9 Anxiety disorder, unspecified (principal); E78.5 Hyperlipidemia, unspecified; E03.9 Hypothyroidism, unspecified; Z95.0 Presence of cardiac pacemaker; I12.9 Hypertensive chronic kidney disease with stage 1 through stage 4 chronic kidney disease, or unspecified chronic kidney disease; N18.9 Chronic kidney disease, unspecified
CPT/HCPCS: 36415; 36600; 71045; 80053; 82805; 83880; 84484; 85018; 85025; 85610; 85730; 93005; 99284

== ENCOUNTER 2025-03-22 01:39 | Emergency (ER) | payer MEDICARE, SELFPAY ==
--- NOTE | ~2025-03-22 | XR_ITS ---
XR chest 2V 03/22/2025 03:42 Indication: Dyspnea Procedure: 2 view chest Comparison: 11/29/2024 Findings: Heart size normal. Status post median sternotomy for CABG. Prominent left nipple shadow. Pa cemaker leads in expected position. No focal there is a prosthetic heart valve. Air space disease, pu lmonary edema, pleural effusion or suspected pneumothorax. Impression: 1: No acute cardiopulmonary disease. Reviewed, dictated and finalized at location A. Impression: 1: No acute cardiopulmonary disease.
--- OUTSIDE RECORDS SUMMARY | 2025-03-22 01:41 | XMS_ITS | Clinical Summary ---
Author Organization [facility] Address [address] [place] [address] Care Team Providers Care Social Media Manager Name Role Phone Jj Collins NP Primary Care Provider [phone] Allergies No known active allergies Medications aspirin 81 mg enteric coated tabletIndications :Myocardial Reinfarction Prevention Take 1 tablet (81 mg total) by mouth daily Active levothyroxine (SYNTHROID) 112 mcg tabletIndications :hypothyroidism Take 1 tablet (112 mcg total) by mouth composition tile layer before breakfast Active clopidogreL (PLAVIX) 75 mg tabletIndications :Myocardial Reinfarction Prevention Take 1 tablet (75 mg total) by mouth daily 30 tablet 11 5 10/23/19 26 Active metoprolol XL (TOPROL-XL) 25 mg extended release tabletIndications :coronary artery disease Take 1 tablet (25 mg total) by mouth daily 30 tablet 11 5 10/22/19 26 Active tamsulosin (FLOMAX) 0.4 mg extended release capsuleIndication s:benign prostatic hyperplasia with lower urinary tract sx Take 1 capsule (0.4 mg total) by mouth daily with dinner 30 capsule 2 5 Active atorvastatin (LIPITOR) 20 mg tabletIndications :coronary artery disease Take 1 tablet (20 mg total) by mouth daily Active furosemide (LASIX) 40 mg tablet Take 1 tablet (40 mg total) by mouth daily 5 Active potassium chloride (KLOR-CON) 20 mEq packet Take 1 packet (20 mEq total) by mouth daily 5 Active Active Problems Problem Noted Date Diagnosed Date Cardiac pacemaker in situ 10/30/2024 Overview (10/30/2024): Medtronic Eulalia Dual Pacemaker. Dx; Tachy/Thomas, Afib, Pauses. DOI 10/13/2024- Abilio. Carelink remote. Dark stools 10/16/2024 Coronary artery disease invo lving [place] coronary artery of [place] heart without angina pectoris 10/06/2024 CAD in [place] artery 10/03/2024 Aortic valve stenosis 10/03/2024 Encounters Date Type Department Care Team Description 03/06/2025 9:30 AM CDT Office Visit [facility] Medical [facility] Cardiology [address] [place] [address] Bandar Simpson MD CAD in [place] artery (Primary Dx); Nonrheumatic aortic valve stenosis 02/21/2025 7:45 AM CDT Ancillary Procedure [facility] Cardiology [address] [address] Sinus bradycardia; Cardiac pacemaker in situ from Last 3 Months Surgical History Surgery Date Site/Laterality Comments OTHER SURGICAL HISTORY 10/05/2024 [facility]ERY SCROTAL / TESTICULAR CARDIAC ELECTROPHYSIOLOGY PROCEDURE 10/13/2024 Chest/N/A Procedure: INSERT/REPLACE DUAL LEAD PACEMAKER (PPM) OR IMPLANTABLE CARDIOVERTER-DEFIBRILLATOR (ICD) ELECTRODE WO GENERATOR CHANGE 31461; Surgeon: Teresa Knox MD; Location: [facility]; Service: Cardiovascular; Laterality: N/A; Medical devices from this surgery are in the Medical Devices section. Medical History Medical History Date Comments Hypothyroidism Hyperlipidemia Hypertension Coronary artery disease Myocardial infarction (HCC) NSTE VA CKD (chronic kidney disease) Aortic stenosis Social [...] materials from doctor or pharmacy Never 11/17/2024 [facility] Utilities Answer Date Recorded In the past 12 months has th e electric, gas, oil, or water company threatened to shut off services in your home? No 10/05/2024 Social Connection and Isolation Panel Answer Date Recorded In a typical week, how many times do you talk on the phone with family, friends, or neighbors? More than three times a week 10/05/2024 How often do you get togethe r with friends or relatives? More than three times a week 10/05/2024 How often do you attend chur ch or faith services? Never 10/05/2024 Do you belong to any clubs o r organizations such as jewish groups, unions, fraternal or athletic groups, or [...] time in the past 12 m [facility], were you homeless or living in a mcc (including now)? No 10/05/2024 Personal Safety Answer Date Recorded Have you ever been in or are you currently in a harmful physical or emotional relationship or is someone making you feel afraid or unsafe? Denies 10/03/2024 Sex and Gender Information Value Date Recorded Sex Assigned at Not on file Legal Sex Male 1:53 PM HYDROPULPER Gender Identity Not on file Sexual Orientation Not on file Obstetrics History Last Filed Vital Signs Vital Sign Reading Time Taken Comments Blood Pressure 120/68 03/06/2025 9:20 AM CDT Pulse 80 03/06/2025 9:20 AM CDT Temperature 35.9 C (96.7 F) 11/17/2024 4:32 PM CDT Respiratory Rate 20 11/17/2024 4:32 PM CDT Oxygen Saturation 96% 03/06/2025 9:20 AM CDT Inhaled Oxygen Concentration - - Weight 120.2 kg (265 lb) 03/06/2025 9:20 AM CDT Height 182.9 cm (6') 03/06/2025 9:20 AM CDT Body Mass Index 35.94 03/06/2025 9:20 AM CDT Plan of Treatment Health Maintenance Due Date Last Done Comments Depression Screening 1944 DTaP/Tdap/Td Vaccine (1 - Tdap) 1955 Hepatitis B Screening 1962 Pneumococcal vaccine 65+ (1 of 1 - PCV) 1994 Zoster Vaccine (1 of 2) 1994 Well Visit 65+ 2009 Influenza Vaccine (#1) 2025 Fall Risk Assessment 10/21/2025 10/21/2024 Medical Devices Implanted Type Area Sales Associate Key Holder Device Identifier Shelf Expiration Date Model / Serial / Lot Medtronic Inc Eulalia S Mri Surescan 50.8x46.6mm 2 Chamber 7.4mm Pacemaker 22.5gm [id number] - [id number] - [id number] Implanted:Qty: 1 on 10/13/2024 by Teresa Knox MD at [facility] Pacemaker Left: Chest Wall Medtronic Inc 07/06/2025 [id number] / [id number] / [employer] Valve Coronary Aortic Tissue Bioprosthesis Intuity Elite 25mm [id number] - [id number] - [id number] Implanted:Qty: 1 on 10/09/2024 by Ilya Mayes MD at [facility] Prosthetic Valve N/A: Heart [employer] 03/02/2025 [id number] / [id number] / Medtronic Inc Capsurefix Novus 6.2fr 2mm 58cm Bipolar Screw In Implantable 5076-58 - [id number] - [id number] Implanted:Qty: 1 on 10/13/2024 by Teresa Knox MD at [facility] Left: Chest Medtronic Inc 07/10/2026 5076-58 / [id number] / Medtronic Inc Capsurefix Novus 6.2fr 2mm 45cm Bipolar Screw In Implantable 5076-45 - [id number] - [id number] Implanted:Qty: 1 on 10/13/2024 by Teresa Knox MD at [facility] Left: Chest Medtronic Inc [id number] 03/24/2026 5076-45 / [id number] 1V / Medtronic Inc Tyrx Absorbable Antibacterial Envelope Med 2.7x2.5in [id number] - [id number] Implanted:Qty: 1 on 10/13/2024 by Teresa Knox MD at [facility] Left: Chest Medtronic Inc 06/29/2025 [id number] / / [id number] Insurance [facility] MEDICARE ADVANTAGE [facility] Address: [address] [address] [place] [address] UHC MEDICARE ADVANTAGE Advance Directives For more information, please contact: [phone] * Full Code (Latest Code Status on File) Date Activated Date Inactivated Comments 10/03/2024 8:28 PM 10/21/2024 4:34 PM Care Teams Social Media Manager Relationship Specialty Start Date End Date Jj Collins NP [address] [place] [address] PCP - General Nurse Practitioner 10/02/24
--- OUTSIDE RECORDS SUMMARY | 2025-03-22 01:41 | XMS_ITS | Encounter Summary ---
Author Organization [facility] Healthcare Address [address] [place] [address] Care Team Providers Care Credit Investigator Name Role Phone Jj Collins NP Primary Care Provider [phone] Encounter Details Date Type Department Care Team (Late st Contact Info) Description 10/03/2024 Orders Only [facility] Information Management [address] [place] [address] Scanning, Provider Social History Tobacco Use Types Packs/Day Years Used Date Smoking Tobacco: Never Smokeless Tobacco: Never [facility] Utilities Answer Date Recorded In the past 12 months has [employer] electric, gas, oil, or water company threatened [...] often do you attend chur ch or tenriism services? Never 10/05/2024 Do you belong to any clubs o r organizations such as denominational groups, unions, fraternal or athletic groups, or [...] any time in the past 12 m [facility], were you homeless or living in a correction (including now)? No 10/05/2024 Personal Safety Answer Date Recorded Have you ever been in or are you currently in a harmful physical or emotional relationship or is someone making you feel afraid or unsafe? Denies 10/03/2024 Sex and Gender Information Value Date Recorded Sex Assigned at Not on file Legal Sex Male 1:53 PM VET TECH Gender Identity Not on file Sexual Orientation Not on file documented as of this encounter Plan of Treatment Not on file documented as of this encounter Procedures Procedure Name Priority Date/Time Associated Diagnosis Comments SCAN - LABS 10/03/2024 CARDIOLOGY DOCUMENT SCAN 10/02/2024 documented in this encounter Results * SCAN - LABS (10/03/2024) us Provider Scanning Final Result * Cardiology Document Scan (10/02/2024) Anatomical Region Laterality Modality Other us Provider Scanning CV CARDIAC SERVICES PROCEDURES Edited Result - Final documented in this encounter Visit Diagnoses Not on filedocumented in this encounter Additional Health Concerns Infection Onset Date Last Indicated Resolved Time COVID: Suspected 10/05/2024 10/05/2024 10/05/2024 5:21 PM VET TECH documented as of this encounter Care Teams Credit Investigator Relationship Specialty Start Date End Date Jj Collins NP [address] [place] [address] PCP - General Nurse Practitioner 10/02/24 documented as of this encounter
--- OUTSIDE RECORDS SUMMARY | 2025-03-22 01:41 | XMS_ITS | Encounter Summary ---
Author Organization [facility] Healthcare Address [address] [place] [address] Care Team Providers Care Tube Former Operator Name Role Phone Jj Collins NP Primary Care Provider [phone] Encounter Details Date Type Department Care Team (Late st Contact Info) Description 10/01/2024 Orders Only [facility] Health Information Management [address] [place] [address] Scanning, Provider Social History Tobacco Use Types Packs/Day Years Used Date Smoking Tobacco: Never Assessed [facility] Utilities Answer Date Recorded In the past 12 months has [employer] electric, gas, oil, or water company threatened [...] often do you attend chur ch or rastafari services? Never 10/05/2024 Do you belong to any clubs o r organizations such as sikh groups, unions, fraternal or athletic groups, or [...] any time in the past 12 m [facility], were you homeless or living in a jail (including now)? No 10/05/2024 Personal Safety Answer Date Recorded Have you ever been in or are you currently in a harmful physical or emotional relationship or is someone making you feel afraid or unsafe? Denies 10/03/2024 Sex and Gender Information Value Date Recorded Sex Assigned at Not on file Legal Sex Male 1:53 PM PYROTECHNICIAN Gender Identity Not on file Sexual Orientation Not on file documented as of this encounter Plan of Treatment Not on file documented as of this encounter Procedures Procedure Name Priority Date/Time Associated Diagnosis Comments SCAN - RADIOLOGY/IMAGING 10/01/2024 documented in this encounter Results * SCAN - RADIOLOGY/IMAGING (10/01/2024) Anatomical Region Laterality Modality Other us Provider Scanning Final Result documented in this encounter Visit Diagnoses Not on filedocumented in this encounter Additional Health Concerns Infection Onset Date Last Indicated Resolved Time COVID: Suspected 10/05/2024 10/05/2024 10/05/2024 5:21 PM PYROTECHNICIAN documented as of this encounter Care Teams Tube Former Operator Relationship Specialty Start Date End Date jJ Collins NP [address] [place] [address] PCP - General Nurse Practitioner 10/02/24 documented as of this encounter
[2025-03-22 01:46] VITALS: BP 169/92; PULSE 88; RESP 20; TEMP 37; O2SAT 96
--- NOTE | 2025-03-22 01:49 | ECG_ITS ---
Test Date: 2025-03-22 01:51:32 Measurements Intervals [place] Rate: 82 P: 70 MN: 155 QRS: 14 QRSD: 102 T: 76 QT: 375 QTc: 439 Interpretive Statements SINUS RHYTHM BASELINE ARTIFACT- I, II, III, AVR, AVL, AVF, V1-V2, V5-V6 NORMAL ECG Compared to ECG 11/29/2024 09:58:40 LEFT BUNDLE BRANCH BLOCK NO LONGER PRESENT Electronically Signed On 03-22-2025 06:08:37 CDT by Art Herman D.O.
--- NOTE | 2025-03-22 04:24 | PC.NURSE ---
Pt stated to the RN I feel much better. I do not think I need to be seen. EDP and typesetting machine operator/tender made aware
--- OUTSIDE RECORDS SUMMARY | 2025-03-22 04:31 | XMS_ITS | Encounter Summary ---
Author Organization [facility] Healthcare Address [address] [place] [address] Care Team Providers Care Programmer Analyst Consultant Name Role Phone Jj Collins NP Primary Care Provider [phone] Encounter Details Date Type Department Care Team (Late st Contact Info) Description 10/03/2024 Orders Only [facility] [place] Health Information Management [address] [place] [address] Scanning, Provider Social History Tobacco Use Types Packs/Day Years Used Date Smoking Tobacco: Never Smokeless Tobacco: Never [facility] Utilities Answer Date Recorded In the past 12 months has [employer] electric, gas, oil, or water company threatened [...] often do you attend chur ch or religion services? Never 10/05/2024 Do you belong to any clubs o r organizations such as buddhism groups, unions, fraternal or athletic groups, or [...] time in the past 12 m [facility], were you homeless or living in a prison (including now)? No 10/05/2024 Personal Safety Answer Date Recorded Have you ever been in or are you currently in a harmful physical or emotional relationship or is someone making you feel afraid or unsafe? Denies 10/03/2024 Sex and Gender Information Value Date Recorded Sex Assigned at Not on file Legal Sex Male 1:53 PM MAGAZINE GRINDER LOADER Gender Identity Not on file Sexual Orientation [...] COVID: Suspected 10/05/2024 10/05/2024 10/05/2024 5:21 PM MAGAZINE GRINDER LOADER documented as of this encounter Care Teams Programmer Analyst Consultant Relationship Specialty Start Date End Date Jj Collins NP [address] [place] [address] PCP - General Nurse Practitioner 10/02/24 documented as of this encounter
--- OUTSIDE RECORDS SUMMARY | 2025-03-22 04:31 | XMS_ITS | Clinical Summary ---
Author Organization [facility] Address [address] [place] [address] Care Team Providers Care Aquaculture Worker Name Role Phone Jj Collins NP Primary Care Provider [phone] Allergies No known active allergies Medications aspirin 81 mg enteric coated tabletIndications :Myocardial Reinfarction Prevention Take 1 tablet (81 mg total) by mouth daily Active levothyroxine (SYNTHROID) 112 mcg tabletIndications :hypothyroidism Take 1 tablet (112 mcg total) by mouth well reactivator operator before breakfast Active clopidogreL (PLAVIX) 75 mg [...] stools 10/16/2024 Coronary artery disease invo lving [place] coronary artery of [place] heart without angina pectoris 10/06/2024 CAD in [place] artery 10/03/2024 Aortic valve stenosis 10/03/2024 Encounters Date Type Department Care Team Description 03/06/2025 9:30 AM CDT Office Visit [facility] Medical [facility] Cardiology [address] [place] [address] Bandar Simpson MD CAD in [place] artery (Primary Dx); Nonrheumatic aortic valve stenosis 02/21/2025 7:45 AM CDT Ancillary Procedure [facility] Cardiology [address] [address] Sinus bradycardia; Cardiac pacemaker in situ from Last 3 Months Surgical History Surgery Date Site/Laterality Comments OTHER SURGICAL HISTORY 10/05/2024 [facility] SURGERY SCROTAL / TESTICULAR CARDIAC ELECTROPHYSIOLOGY PROCEDURE 10/13/2024 Chest/N/A Procedure: INSERT/REPLACE DUAL LEAD PACEMAKER (PPM) OR IMPLANTABLE CARDIOVERTER-DEFIBRILLATOR (ICD) ELECTRODE WO GENERATOR CHANGE [address]1650; Surgeon: Teresa Knox MD; Location: [facility]; Service: Cardiovascular; Laterality: N/A; Medical devices from this surgery are in the Medical Devices section. Medical History Medical History Date Comments Hypothyroidism Hyperlipidemia Hypertension Coronary artery disease Myocardial infarction (HCC) NSTE [place] CKD (chronic kidney disease) Aortic stenosis Social [...] materials from doctor or pharmacy Never 11/17/2024 [facility] Utilities Answer Date Recorded In the [...] any clubs o r organizations such as jew groups, unions, fraternal or athletic groups, or [...] any time in the past 12 m [facility], were you homeless or living in a intermediate (including now)? No 10/05/2024 Personal Safety Answer Date Recorded Have you ever been in or are you currently in a harmful physical or emotional relationship or is someone making you feel afraid or unsafe? Denies 10/03/2024 Sex and Gender Information Value Date Recorded Sex Assigned at Not on file Legal Sex Male 1:53 PM UM RN Gender Identity Not on file Sexual Orientation [...] 10/21/2025 10/21/2024 Medical Devices Implanted Type Area Assembly Line Robot Operator Device Identifier Shelf Expiration Date Model / Serial / Lot Medtronic Inc Eulalia S Mri Surescan 50.8x46.6mm 2 Chamber 7.4mm Pacemaker 22.5gm [id number] - [id number] - [id number] Implanted:Qty: 1 on 10/13/2024 by Teresa Knox MD at [facility] Pacemaker Left: Chest Wall Medtronic Inc 07/06/2025 [id number] / [id number] / [employer] Valve Coronary Aortic Tissue Bioprosthesis Intuity Elite 25mm [id number] - [id number] - [id number] Implanted:Qty: 1 on 10/09/2024 by Ilya Mayes MD at [facility] Prosthetic Valve N/A: Heart [employer] 03/02/2025 [id number] / [id number] / Medtronic Inc Capsurefix Novus 6.2fr 2mm 58cm Bipolar Screw In Implantable 5076-58 - [id number] - [id number] Implanted:Qty: 1 on 10/13/2024 by Teresa Knox MD at [facility] Left: Chest Medtronic Inc 07/10/2026 5076-58 / [id number] / Medtronic Inc Capsurefix Novus 6.2fr 2mm 45cm Bipolar Screw In Implantable 5076-45 - [id number] - [id number] Implanted:Qty: 1 on 10/13/2024 by Teresa Knox MD at [facility] Left: Chest Medtronic Inc [id number] 03/24/2026 5076-45 / [id number] 1V / Medtronic Inc Tyrx Absorbable Antibacterial Envelope Med 2.7x2.5in [id number] - [id number] Implanted:Qty: 1 on 10/13/2024 by Teresa Knox MD at [facility] Left: Chest Medtronic Inc 06/29/2025 [id number] / / [id number] Insurance [facility] MEDICARE ADVANTAGE UHC MEDICARE ADVANTAGE Advance Directives For more information, please contact: [phone] * Full Code (Latest Code Status on File) Date Activated Date Inactivated Comments 10/03/2024 8:28 PM 10/21/2024 4:34 PM Care Teams Aquaculture Worker Relationship Specialty Start Date End Date Jj Collins NP [address] [place] [address] PCP - General Nurse Practitioner 10/02/24
--- OUTSIDE RECORDS SUMMARY | 2025-03-22 04:31 | XMS_ITS | Encounter Summary ---
Author Organization [facility] Address [address] [place] [address] Care Team Providers Care Rocket Test Fire Worker Name Role Phone Jj Collins NP Primary Care Provider [phone] Encounter Details Date Type Department Care Team (Late st Contact Info) Description 10/01/[address] [facility] Health Information Management [address] [place] [id number] Scanning, Provider Social History Tobacco Use Types Packs/Day Years Used Date Smoking Tobacco: Never Assessed [facility] Utilities Answer Date Recorded In the past 12 months has [employer], gas, oil, or water company threatened [...] often do you attend chur ch or moravian services? Never 10/05/2024 Do you belong to any clubs o r organizations such as faith groups, unions, fraternal or athletic groups, or [...] any time in the past 12 m [facility], were you homeless or living in a fci (including now)? No 10/05/2024 Personal Safety Answer Date Recorded Have you ever been in or are you currently in a harmful physical or emotional relationship or is someone making you feel afraid or unsafe? Denies 10/03/2024 Sex and Gender Information Value Date Recorded Sex Assigned at Not on file Legal Sex Male 1:53 PM PNP Gender Identity Not on file Sexual Orientation [...] COVID: Suspected 10/05/2024 10/05/2024 10/05/2024 5:21 PM PNP documented as of this encounter Care Teams Rocket Test Fire Worker Relationship Specialty Start Date End Date Jj Collins NP [address] [place] [address] PCP - General Nurse Practitioner 10/02/24 documented as of this encounter
== END 2025-03-22 04:24 | disposition left against medical advice (07) ==
LOC: ANHED 04:29
PROVIDERS: Emergency Provider Student in an Organized Health Care Education/Training Program; PCP Nurse Practitioner
DX: R06.02 Shortness of breath (principal)
CPT/HCPCS: 71046; 93005; 99199